=== PATIENT | female | born 1940 | race Caucasian/White ===

== ENCOUNTER 2024-10-13 11:18 | Inpatient (IN) | payer OTHER ==
--- OUTSIDE RECORDS SUMMARY | 2024-10-13 11:27 | XMS REPORT | Continuity of Care Document ---
Author Name Unknown Address [address] [facility] [address]. [address] [place] [address] [facility] [place] Address [address] [facility]. [address] [place] [address] Care Team Providers Care Sap Trainer Name Role Phone Chele Bass Attending Clinician Unavailable Nooruddin_K Attending Clinician Unavailable Keyla Galvan Attending Clinician Unavailable Chele Bass Admitting Clinician Unavailable Noordonis_K Admitting Clinician Unavailable Haja Carnes Admitting Clinician Unavailable Payers Payer Name Policy Type Policy Number Effective Date Expirati on Date Source MEDIC[place]: [employer] [id number] 2007 00:00:00 WEATOGUE FERNANDA WHITE (MEDICARE SUPPLEMENT) [id number] 2007 00:00:00 Problems Condition Name Condition Details Condition Category Status Onset Date Resolution Date Last Treatment Date Treating Clinician Comments Source Chronic kidney disease stage 3B Chronic Kidney Disease Stage 3B Problem Active 01-31 00:00: 00 [facility] - unspeci fied Diastolic heart failure Diastolic Heart Failure Problem Active 01-31 00:00: 00 [facility] - unspeci fied Chronic kidney disease stage 3A Chronic Kidney Disease Stage 3a Problem Active 08-03 00:00: 00 [facility] - unspeci fied Benign essential hypertensi on Benign Essential Hypertensi on Problem Active 08-03 00:00: 00 [facility] - unspeci fied Paroxysmal atrial fibrillati on Paroxysmal Atrial Fibrillati on Problem Active 08-03 00:00: 00 [facility] - unspeci fied 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 ve Joint Disease Involving Multiple Joints Problem Active 08-03 00:00: 00 [facility] - unspeci fied Osteoarthr itis Osteoarthr itis Problem Active 07-28 00:00: 00 [facility] - unspeci fied Proteinuri a Proteinuri a Problem Active 07-28 00:00: 00 [facility] - unspeci fied Clinical finding Clinical Finding Problem Active 07-28 00:00: 00 [facility] - unspeci fied Allergies, Adverse Reactions, Alerts Allergy Name Allergy Type Status Severity Reaction(s) Onset Date Inactive Date Treating Clinician Comments Source aspirin DA Active MO UNKNOWN 07-10 00:00: 00 [facility] bacitrac in DA Active MO UNKNOWN 07-10 00:00: 00 [facility] Aspirin Allergy to substanc e Active Nausea 08-03 00:00: 00 [facility] - unspeci fied Aluminum Aspirin Allergy to substanc e Active Nausea 08-03 00:00: 00 [facility] - unspeci fied SULFAMET HOXAZOLE -TRIMETH OPRIM Allergy to substanc e Active Other 08-03 00:00: 00 [facility] - unspeci fied iodine DA Active U 11-07 00:00: 00 [facility] penicill in G DA Active IN 07-09 00:00: 00 [facility] iodine DA Active IN 07-09 00:00: 00 [facility] aspirin DA Active IN 02-05 00:00: 00 [facility] Sulfa (Sulfona mide Antibiot ics) DA Active IN 02-05 00:00: 00 [facility] codeine DA Active IN 02-05 00:00: 00 [facility] Sulfa (Sulfona mide Antibiot ics) DA Active MO 08-08 00:00: 00 [facility] codeine DA Active MO 08-08 00:00: 00 [facility] trimetho prim DA Active SV 08-08 00:00: 00 [facility] SULFA (SULFONA MIDE ANTIBIOT ICS) Allergy to substanc e Active [facility] - unspeci fied Sulfacet amide Allergy to substanc e Active [facility] - unspeci fied Social History Smoking Status Start Date Stop Date Source Former Smoker [facility] - un specified Medications Ordered Medication Name Filled Medication Name Start Date Stop Date Current Medication? Ordering Clinician Indication Dosage Frequency Signature (SIG) Comments Components Source allopurinol 300 mg tablet TAKE 1 TABLET BY MOUTH ONCE DAILY allopurinol 300 mg tablet TAKE 1 TABLET BY MOUTH ONCE DAILY No allopurino l 300 mg tablet TAKE 1 TABLET BY MOUTH ONCE DAILY [facility] - unspeci fied amlodipine 2.5 mg tablet TAKE 1 TABLET BY MOUTH ONCE DAILY amlodipine 2.5 mg tablet TAKE 1 TABLET BY MOUTH ONCE DAILY No amlodipine 2.5 mg tablet TAKE 1 TABLET BY MOUTH ONCE DAILY [facility] - unspeci fied atorvastati n 20 mg tablet TAKE 1 TABLET BY MOUTH ONCE DAILY atorvastati n 20 mg tablet TAKE 1 TABLET BY MOUTH ONCE DAILY No atorvastat in 20 mg tablet TAKE 1 TABLET BY MOUTH ONCE DAILY [facility] - unspeci fied Eliquis 5 mg tablet TAKE 1 TABLET BY MOUTH TWICE DAILY Eliquis 5 mg tablet TAKE 1 TABLET BY MOUTH TWICE DAILY No Eliquis 5 mg tablet TAKE 1 TABLET BY MOUTH TWICE DAILY [facility] - unspeci fied Farxiga 10 mg tablet TAKE 1 TABLET BY MOUTH ONCE DAILY Farxiga 10 mg tablet TAKE 1 TABLET BY MOUTH ONCE DAILY No Farxiga 10 mg tablet TAKE 1 TABLET BY MOUTH ONCE DAILY [facility] - unspeci fied furosemide 40 mg tablet 1 tab po QOD furosemide 40 mg tablet 1 tab po QOD No furosemide 40 mg tablet 1 tab po QOD [facility] - unspeci fied hydrocodone 10 mg-acetamin ophen 325 mg tablet TAKE 1 TABLET BY MOUTH EVERY 6 HOURS NEEDED , MUST LAST 30 DAYS. hydrocodone 10 mg-acetamin ophen 325 mg tablet TAKE 1 TABLET BY MOUTH EVERY 6 HOURS NEEDED , MUST LAST 30 DAYS. No hydrocodon e 10 mg-acetami nophen 325 mg tablet TAKE 1 TABLET BY MOUTH EVERY 6 HOURS NEEDED , MUST LAST 30 DAYS. [facility] ic - unspeci fied nebivolol 20 mg tablet TAKE 1 TABLET BY MOUTH ONCE DAILY nebivolol 20 mg tablet TAKE 1 TABLET BY MOUTH ONCE DAILY No nebivolol 20 mg tablet TAKE 1 TABLET BY MOUTH ONCE DAILY [facility] ic - unspeci fied potassium chloride ER 20 mEq tablet,exte nded release(par t/cryst) TAKE 1 TABLET daily potassium chloride ER 20 mEq tablet,exte nded release(par t/cryst) TAKE 1 TABLET daily No potassium chloride ER 20 mEq tablet,ext ended release(pa rt/cryst) TAKE 1 TABLET daily [facility] - unspeci fied prednisone 1 mg tablet TAKE 1 TABLET BY MOUTH EVERY OTHER DAY ALTERNATING WITH 2 EVERY OTHER DAY prednisone 1 mg tablet TAKE 1 TABLET BY MOUTH EVERY OTHER DAY ALTERNATING WITH 2 EVERY OTHER DAY No prednisone 1 mg tablet TAKE 1 TABLET BY MOUTH EVERY OTHER DAY ALTERNATIN G WITH 2 EVERY OTHER DAY [facility] - unspeci fied prednisone 5 mg tablet TAKE 1 TABLET BY MOUTH ONCE DAILY NEEDED prednisone 5 mg tablet TAKE 1 TABLET BY MOUTH ONCE DAILY NEEDED No prednisone 5 mg tablet TAKE 1 TABLET BY MOUTH ONCE DAILY NEEDED [facility] ic - unspeci fied valsartan 320 mg tablet TAKE 1 TABLET BY MOUTH ONCE DAILY valsartan 320 mg tablet TAKE 1 TABLET BY MOUTH ONCE DAILY No valsartan 320 mg tablet TAKE 1 TABLET BY MOUTH ONCE DAILY [facility] - unspeci fied levothyroxi ne 112 mcg tablet TAKE 1 TABLET BY MOUTH ONCE DAILY ON AN EMPTY STOMACH levothyroxi ne 112 mcg tablet TAKE 1 TABLET BY MOUTH ONCE DAILY ON AN EMPTY STOMACH No levothyrox ine 112 mcg tablet TAKE 1 TABLET BY MOUTH ONCE DAILY ON AN EMPTY STOMACH [facility] ic - unspeci fied methocarbam ol 500 mg tablet TAKE 1/2 (ONE-HALF) TABLET BY MOUTH THREE TIMES DAILY FOR 10 DAYS methocarbam ol 500 mg tablet TAKE 1/2 (ONE-HALF) TABLET BY MOUTH THREE TIMES DAILY FOR 10 DAYS No methocarba mol 500 mg tablet TAKE 1/2 (ONE-HALF) TABLET BY MOUTH THREE TIMES DAILY FOR 10 DAYS [facility]am ic - unspeci fied potassium chloride ER 20 mEq tablet,exte nded release TAKE 1 TABLET BY MOUTH TWICE DAILY potassium chloride ER 20 mEq tablet,exte nded release TAKE 1 TABLET BY MOUTH TWICE DAILY No potassium chloride ER 20 mEq tablet,ext ended release TAKE 1 TABLET BY MOUTH TWICE DAILY [facility] ic - unspeci fied Vital Signs Vital Name Observation Time Observation Value Comments S ource BMI (Body Mass Index) 2024-08-28 00:00:00 41 kg/m2 [facility] - unspecified Body Weight 2024-08-28 00:00:00 210 [lb_av] Dahl oramic - unspecified BP Diastolic 2024-08-28 00:00:00 72 mm[Hg] Dahl oramic - unspecified BP Systolic 2024-08-28 00:00:00 140 mm[Hg] Pano ramic - unspecified Height 2024-08-28 00:00:00 60 [in_i] Panor amic - unspecified BP Systolic 2024-02-01 00:00:00 116 mm[Hg] [facility] ramic - unspecified BMI (Body Mass Index) 2024-02-01 00:00:00 40.2 kg/m2 [facility] - unspecified Height 2024-02-01 00:00:00 60 [in_i] Panor amic - unspecified BP Diastolic 2024-02-01 00:00:00 54 mm[Hg] Dahl oramic - unspecified Body Weight 2024-02-01 00:00:00 206 [lb_av] Dahl oramic - unspecified Procedures Procedure Date / Time Performed Performing Clinician Source Cataract Panoramic - unspecified Cardiac Pacemaker Procedure Pan[facility] - unspecified Hysterectomy Panoramic - unspecified Cholecystectomy/Gall Bladder Pan[facility] - unspecified Appendectomy Panoramic - unspecified Encounters Start Date/Time End Date/Time Encounter Type Admission Type Attending Clinicians Care Facility Care Department Encounter ID Source 2018-10-09 09:43:00 Inpatient Chele Calvert [facility] [id number] [facility] 2024-08-28 00:00:00 2024-08-28 00:00:00 Toñito Mcnair MD: [address], [place] [address] , Ph. [facility] [address] [phone] [id number] [facility] - unspeci fied 2024-02-01 00:00:00 2024-02-01 00:00:00 Toñito Mcnair MD: [address], [place] [address] , Ph. [facility] [place] [address] [id number] [id number] [facility] ic - unspeci [facility] 2023-08-03 00:00:00 2023-08-03 00:00:00 Outpatient Nooruddin_K [facility] [id number] [facility] 2023-07-10 13:07:00 2023-07-10 14:09:00 Emergency EM Keyla Galvan [facility] [id number] [facility] 2023-05-04 00:00:00 2023-05-04 00:00:00 Outpatient Nooruddin_K [facility]KS[facility] PANKS[facility] [id number] [facility] 2018-10-31 15:21:00 2018-11-02 15:23:00 Inpatient Chele Calvert [facility] [id number] [facility] 2018-10-09 09:43:00 2018-10-21 12:06:00 Inpatient Chele Calvert [facility] [id number] [facility] Results Test Description Test Time Test Comments Results Result Co mments Source Panoramic - unspecifiedRenal function 2000 panel - Serum or [id number] 00:00:00* Test Item Value Reference Range Interpretation Comme nts Glucose [Mass/volume] in Ser um or Plasma (test code = 2345-7) 87 mg/dL 70-99 Urea nitrogen [Mass/volume] in Serum or Plasma (test code = 3094-0) 20 mg/dL 8-27 Creatinine [Mass/volume] in Serum or Plasma (test code = 2160-0) 0.89 mg/dL 0.57-1.00 Glomerular filtration rate/1.73 sq M.predicted [Volume Rate/Area] in Serum, Plasma or Blood by Creatinine-based formula (CKD-EPI 2020) (test code = 53087-5) 65 mL/min/1.73 >59 Urea nitrogen/Creatinine [Ma ss Ratio] in Serum or Plasma (test code = 3097-3) 22 12-28 Sodium [Moles/volume] in Ser um or Plasma (test code = 2951-2) 143 mmol/L 134-144 Potassium [Moles/volume] in Serum or Plasma (test code = 2823-3) 4.0 mmol/L 3.5-5.2 Chloride [Moles/volume] in Serum or Plasma (test code = 2075-0) 101 mmol/L 96-106 Carbon dioxide, total [Moles/volume] in Serum or Plasma (test code = 8-9) 30 mmol/L 20-29 H Calcium [Mass/volume] in Ser um or Plasma (test code = 17105-9) 9.6 mg/dL 8.7-10.3 Phosphate [Mass/volume] in Serum or Plasma (test code = 2777-1) 3.3 mg/dL 3.0-4.3 Albumin [Mass/volume] in Ser um or Plasma (test code = 1751-7) 3.7 g/dL 3.7-4.7 Panoramic - unspecifiedProtein and creatinine panel - [id number] 00:00:00* Test Item Value Reference Range Interpretation Comme nts Creatinine [Mass/volume] in Urine (test code = 2161-8) 52.8 mg/dL not estab. Protein [Mass/volume] in Uri ne (test code = 2888-6) 8.2 mg/dL not estab. Protein/Creatinine [Mass Ratio] in Urine (test code = 2890-2) 155 mg/g creat 0-200 Panoramic - unspecifiedPROCALCITONIN (PCT)2019-04-04 14:48:00* Test Item Value Reference Range Interpretation Comme nts PROCALCITONIN (PCT) (test co de = PROCAL) < 0.05 ng/mL 0.00-0.50 N [id number] 14:44:00* Test Item Value Reference Range Interpretation Comme nts TROPONIN-I (test code = TROPI) 0.07 NG/ML 0.00-0.06 H Results above 0.06 are consistent with NACB IFCC Committee recommendations to use the 99th percentile of a normal population as a reference decision-limit. - The use of serial sampling and testing protocol is a recommended practice.- An elevated troponin level alone is often not sufficient for diagnosis of myocardial infarction. Results of this assay method may be falsely depressed orelevated if patient is taking high doses of Biotin. - XR CHEST 1 [id number] 10:12:00Patient Name: GABBIE CASTANEDA Unit No: [id number] EXAMS: CPT CODE: [id number] XR CHEST 1 V [id number] Reason: f/u cxr History: f/u cxr. Technique: 1 view of chest. Comparison: CT angiography chest study dated 11/07/2018, one view chest study dated 04/03/2019. Findings: HEART AND MEDIASTINUM: Within normal limits. LUNGS: There is a left lower lung density unchanged. Impression: 1. Left lower lung density unchanged. Atelectasis versus pneumonia are considerations. at 1012 Reported and signed by: Bryson Swenson MD CC: Paul Baeza MD; Chele Bass; Micaela Aggarwal DO Technologist: Ginger Arguello RT Trscrpt Dt/ (1012)[email or web address] Orig Print D/T: S: 04/04/2019 (1015) [facility] NAME: GABBIE CASTANEDA [address] PHYS: Micaela Dailey [place] [address] [place] [address] : 1940 AGE: 78 SEX: F LOC: SONAM 1 PHONE #: [phone] EXAM DATE: 04/04/2019 STATUS: ADM IN FAX #: RAD NO: DC Dt: PAGE 1 Signed ReportBASIC METABOLIC [id number] 08:53:00* Test Item Value Reference Range Interpretation Comme nts SODIUM (test code = NA) 143 MMOL/L 133-145 N POTASSIUM (test code = K) 3.2 MMOL/L 3.6-5.2 L CHLORIDE (test code = CL) 106 MMOL/L 100-108 N CARBON DIOXIDE (test code = CO2) 28 MMOL/L 22-32 N GLUCOSE (test code = GLU) 84 MG/DL 65-99 N Results of this assay method may be falsely depressed orelevated if patient is taking sulfasalazine. BLOOD UREA NITROGEN (test code = BUN) 26 MG/DL 6-20 H GLOMERULAR FILTRATION RATE (test code = GFR) 61 39-90 N Reporting units: mL/min/1.73m\\S\\2 (Modified MDRD Formula) CREATININE (test code = CREAT) 0.90 MG/DL 0.60-1.00 N CALCIUM (test code = CA) 9.1 MG/DL 8.7-10.5 N : add it to AM [id number] 08:53:00* Test Item Value Reference Range Interpretation Comme nts MAGNESIUM (test code = MAG) 2.2 MG/DL 1.8-2.4 N : add it to AM [id number] 08:53:00* Test Item Value Reference Range Interpretation Comme nts TROPONIN-I (test code = TROPI) 0.06 NG/ML 0.00-0.06 N - The use of ser ial sampling and testing protocol is a recommended practice.- An elevated troponin level alone is often not sufficient for diagnosis of myocardial infarction.Results of this assay method may be falsely depressed orelevated if patient is taking high doses of Biotin. : add it to AM labBASIC METABOLIC [id number] 08:35:00* Test Item Value Reference Range Interpretation Comme nts SODIUM (test code = NA) 143 MMOL/L 133-145 N POTASSIUM (test code = K) 3.2 MMOL/L 3.6-5.2 L CHLORIDE (test code = CL) 106 MMOL/L 100-108 N CARBON DIOXIDE (test code = CO2) 28 MMOL/L 22-32 N GLUCOSE (test code = GLU) 84 MG/DL 65-99 N Results of this assay method may be falsely depressed orelevated if patient is taking sulfasalazine. BLOOD UREA NITROGEN (test code = BUN) 26 MG/DL 6-20 H GLOMERULAR FILTRATION RATE (test code = GFR) 61 39-90 N Reporting units: mL/min/1.73m\\S\\2 (Modified MDRD Formula) CREATININE (test code = CREAT) 0.90 MG/DL 0.60-1.00 N CALCIUM (test code = CA) 9.1 MG/DL 8.7-10.5 N : add it to AM [id number] 08:35:00* Test Item Value Reference Range Interpretation Comme nts MAGNESIUM (test code = MAG) 2.2 MG/DL 1.8-2.4 N : add it to AM [id number] 08:35:00* Test Item Value Reference Range Interpretation Comme nts TROPONIN-I (test code = TROPI) NG/ML 0.00-0.06 : add it to AM labCBC W/AUTO [id number] 08:22:00* Test Item Value Reference Range Interpretation Comme nts WHITE BLOOD CELL (test code = WBC) 5.13 x10 3/uL 4.80-10.80 N RED BLOOD CELL (test code = RBC) 3.76 x10 6/uL 4.2-5.4 L HEMOGLOBIN (test code = HGB) 10.6 G/DL 12.0-16.0 L HEMATOCRIT (test code = HCT) 34.4 % 37-47 L MEAN CELL VOLUME (test code = MCV) 91.5 FL 81-99 N MEAN CELL HGB (test code = MCH) 28.2 PG 27-31 N MEAN CELL HGB CONCENTRATION (test code = MCHC) 30.8 G/DL 33-37 L RED CELL DISTRIBUTION WIDTH (test code = RDW) 16.4 % 11.5-14.5 H PLATELET COUNT (test code = PLT) 235 x10 3/uL 150-450 N MEAN PLATELET VOLUME (test c ode = MPV) 10.8 FL 7.4-10.4 H NEUTROPHIL % (test code = NT%) 59.1 % 42-86 N IMMATURE GRANULOCYTE % (test code = IG%) 1.0 % 0.0-2.0 N LYMPHOCYTE % (test code = LY%) 25.0 % 24-44 N MONOCYTE % (test code = MO%) 12.5 % 0.0-4.0 H EOSINOPHIL % (test code = EO%) 1.8 % 0.0-2.7 N BASOPHIL % (test code = BA%) 0.6 % 0.0-0.5 H NUCLEATED RBC % (test code = NRBC%) 0.0 % 0.0-0.0 N NEUTROPHIL # (test code = NT#) 3.04 x10 3/uL 1.8-7.7 N IMMATURE GRANULOCYTE # (test code = IG#) 0.05 x10 3/uL 0.00-0.03 H LYMPHOCYTE # (test code = LY#) 1.28 x10 3/uL 1.0-4.8 N MONOCYTE # (test code = MO#) 0.64 x10 3/uL 0.0-0.8 N EOSINOPHIL # (test code = EO#) 0.09 x10 3/uL 0.0-0.5 N BASOPHIL # (test code = BA#) 0.03 x10 3/uL 0.0-0.2 N NUCLEATED RBC # (test code = NRBC#) 0.0 X10 3/uL 0.0-0.2 N TROPONIN I [id number] 01:30:00* Test Item Value Reference Range Interpretation Comme nts TROPONIN I RAPID (test code = TROPIRAP) 0.08 NG/ML 0.00-0.08 N Performed by cer tified control operator flow coat at [facility] - The use of serial sampling and testing protocol is a recommended practice.- An elevated troponin level alone is often not sufficient for diagnosis of myocardial infarction. COMPREHENSIVE METABOLIC [id number] 23:35:00* Test Item Value Reference Range Interpretation Comme nts SODIUM (test code = NA) 141 MMOL/L 133-145 N POTASSIUM (test code = K) 3.4 MMOL/L 3.6-5.2 L CHLORIDE (test code = CL) 103 MMOL/L 100-108 N CARBON DIOXIDE (test code = CO2) 28 MMOL/L 22-32 N GLUCOSE (test code = GLU) 100 MG/DL 65-99 H Results of this assay method may be falsely depressed orelevated if patient is taking sulfasalazine. BLOOD UREA NITROGEN (test code = BUN) 28 MG/DL 6-20 H GLOMERULAR FILTRATION RATE (test code = GFR) 46 39-90 N Reporting units: mL/min/1.73m\\S\\2 (Modified MDRD Formula) CREATININE (test code = CREAT) 1.15 MG/DL 0.60-1.00 H TOTAL PROTEIN (test code = PROT) 6.1 G/DL 6.4-8.2 L ALBUMIN (test code = ALB) 3.0 G/DL 3.4-5.0 L GLOBULIN (test code = GLOB) 3.1 G/DL 1.5-3.8 N ALBUMIN/GLOBULIN RATIO (test code = A/G) 1.0 1.1-2.2 L CALCIUM (test code = CA) 9.1 MG/DL 8.7-10.5 N BILIRUBIN TOTAL (test code = BILT) 0.3 MG/DL 0.0-1.0 N SGOT/AST (test code = AST) 18 Units/L 15-37 N Results of this assay method may be falsely depressed orelevated if patient is taking sulfasalazine. SGPT/ALT (test code = ALT) 19 Units/L 30-65 L Results of this assay method may be falsely depressed orelevated if patient is taking sulfasalazine. ALKALINE PHOSPHATASE TOTAL (test code = ALKP) 106 Units/L 50-136 N [id number] 23:35:00* Test Item Value Reference Range Interpretation Comme nts MAGNESIUM (test code = MAG) 2.1 MG/DL 1.8-2.4 N PROTHROMBIN [id number] 23:12:00* Test Item Value Reference Range Interpretation Comme nts PROTHROMBIN TIME PATIENT (test code = PTP) 11.5 SECONDS 9.6-12.3 N INTERNATIONAL NORMAL RATIO (test code = INR) 1.02 Recommended INR range (warfarin therapy): 2.0 - 3.0INR (International Normalized Ratio) should beused when interpreting oral anticoaglulant therapy. For atrial fibrillation and treatment orprevention of deep vein thrombosis. Patients with Palmaz-Donte stent *: 2.0 - 3.0 Patients with mechanical heart valve *: 2.5 - 3.5 Patients with flex-stent *: 3.0 - 4.0(*) = vehicle dynamics engineer's suggested range Is patient on anticoagulants? PradaxaTHROMBOPLASTIN TIME [id number] 23:12:00* Test Item Value Reference Range Interpretation Comme nts THROMBOPLASTIN TIME PARTIAL (test code = PTT) 31.6 SECONDS 22.5-35.3 N *Therapeutic lev el for heparin: 1.5 - 2.5 times the average patient value of 30.0 seconds. The aPTT tet should not be used to evaluate low moleculat weight heparin anticoagulant therapy. Is patient on anticoagulants? Pradaxa- XR CHEST 1 [id number] 23:08:00Patient Name: GABBIE CASTANEDA Unit No: [id number] EXAMS: CPT CODE: [id number] XR CHEST 1 V 76763 Reason: CHEST PAIN PROCEDURE INFORMATION: Exam: XR Chest, 1 View Exam date and time: 04/03/2019 10:24 PM Clinical history: 78 years old, female; Chest pain TECHNIQUE: Imaging protocol: XR of the chest Views: 1 view. COMPARISON: DX XR CHEST 2V 10/31/2018 3:49 PM FINDINGS: Lungs: Mild apical hyperlucency suspicious for possible COPD Pulmonary vasculature grossly normal. Chronic blunting of the left lateral costophrenic angle suggesting chronic pleural scarring and atelectasis. Mild adjacent left basilar scarring or atelectasis in the peripheral left lower lobe. No infiltrates. Pleural space: Nopleural effusion. No pneumothorax. Heart/Mediastinum: Heart size normal. No tracheal/mediastinal shift. Vasculature: Mild aortic calcification and ectasia. Bones/joints: No acute osseous abnormalities are identified. IMPRESSION: 1. No acute thoracic process. No significant change from prior exam. 2. Chronic scarring or atelectasis in the left lateral costophrenic angle. 3. Suspect underlying COPD. at 2308 Reported and signedby: Nadir BOOTH CC: Nilson Kerr MD; Chele Bass Technologist: Ashley SCOTT Trscrpt Dt/ (2307)[email or web address].VR Orig Print D/T: S: 04/03/2019 (943) [facility] NAME: GABBIE CASTANEDA [address] PH[address]: Nil[place] [address] : 1940 AGE: 78 SEX: F LOC: MARANDA PHONE #: [phone] EXAM DATE: 04/03/2019 STATUS: REG ER FAX #: RAD NO: DC Dt: PAGE 1 Signed ReportTRSAFIA [id number] 23:06:00* Test Item Value Reference Range Interpretation Comme nts TROPONIN I RAPID (test code = TROPIRAP) 0.07 NG/ML 0.00-0.08 N Performed by cer tified control operator flow coat at [facility] - The use of serial sampling and testing protocol is a recommended practice.- An elevated troponin level alone is often not sufficient for diagnosis of myocardial infarction. CBC W/AUTO [id number] 23:03:00* Test Item Value Reference Range Interpretation Comme nts WHITE BLOOD CELL (test code = WBC) 6.10 x10 3/uL 4.80-10.80 N RED BLOOD CELL (test code = RBC) 4.08 x10 6/uL 4.2-5.4 L HEMOGLOBIN (test code = HGB) 11.6 G/DL 12.0-16.0 L HEMATOCRIT (test code = HCT) 37.6 % 37-47 N MEAN CELL VOLUME (test code = MCV) 92.2 FL 81-99 N MEAN CELL HGB (test code = MCH) 28.4 PG 27-31 N MEAN CELL HGB CONCENTRATION (test code = MCHC) 30.9 G/DL 33-37 L RED CELL DISTRIBUTION WIDTH (test code = RDW) 16.3 % 11.5-14.5 H PLATELET COUNT (test code = PLT) 248 x10 3/uL 150-450 N MEAN PLATELET VOLUME (test c ode = MPV) 10.8 FL 7.4-10.4 H NEUTROPHIL % (test code = NT%) 70.9 % 42-86 N IMMATURE GRANULOCYTE % (test code = IG%) 1.3 % 0.0-2.0 N LYMPHOCYTE % (test code = LY%) 16.6 % 24-44 L MONOCYTE % (test code = MO%) 9.7 % 0.0-4.0 H EOSINOPHIL % (test code = EO%) 0.8 % 0.0-2.7 N BASOPHIL % (test code = BA%) 0.7 % 0.0-0.5 H NUCLEATED RBC % (test code = NRBC%) 0.0 % 0.0-0.0 N NEUTROPHIL # (test code = NT#) 4.33 x10 3/uL 1.8-7.7 N IMMATURE GRANULOCYTE # (test code = IG#) 0.08 x10 3/uL 0.00-0.03 H LYMPHOCYTE # (test code = LY#) 1.01 x10 3/uL 1.0-4.8 N MONOCYTE # (test code = MO#) 0.59 x10 3/uL 0.0-0.8 N EOSINOPHIL # (test code = EO#) 0.05 x10 3/uL 0.0-0.5 N BASOPHIL # (test code = BA#) 0.04 x10 3/uL 0.0-0.2 N NUCLEATED RBC # (test code = NRBC#) 0.0 X10 3/uL 0.0-0.2 N BASIC METABOLIC [id number] 23:24:00* Test Item Value Reference Range Interpretation Comme nts SODIUM (test code = NA) 134 MMOL/L 133-145 POTASSIUM (test code = K) 4.3 MMOL/L 3.6-5.2 N CHLORIDE (test code = CL) 95 MMOL/L 100-108 L CARBON DIOXIDE (test code = CO2) 25 MMOL/L 22-32 N GLUCOSE (test code = GLU) 161 MG/DL 65-99 H Results of this assay method may be falsely depressed orelevated if patient is taking sulfasalazine. BLOOD UREA NITROGEN (test code = BUN) 42 MG/DL 6-20 H GLOMERULAR FILTRATION RATE (test code = GFR) 32 39-90 L Reporting units: mL/min/1.73m\\S\\2 (Modified MDRD Formula) CREATININE (test code = CREAT) 1.58 MG/DL 0.60-1.00 H CALCIUM (test code = CA) 10.0 MG/DL 8.7-10.5 N BASIC METABOLIC [id number] 23:13:00* Test Item Value Reference Range Interpretation Comme nts SODIUM (test code = NA) MMOL/L 133-145 L POTASSIUM (test code = K) MMOL/L 3.6-5.2 N CHLORIDE (test code = CL) 95 MMOL/L 100-108 L CARBON DIOXIDE (test code = CO2) 25 MMOL/L 22-32 N GLUCOSE (test code = GLU) 161 MG/DL 65-99 H Results of this assay method may be falsely depressed orelevated if patient is taking sulfasalazine. BLOOD UREA NITROGEN (test code = BUN) 42 MG/DL 6-20 H GLOMERULAR FILTRATION RATE (test code = GFR) 32 39-90 L Reporting units: mL/min/1.73m\\S\\2 (Modified MDRD Formula) CREATININE (test code = CREAT) 1.58 MG/DL 0.60-1.00 H CALCIUM (test code = CA) 10.0 MG/DL 8.7-10.5 N CBC W/AUTO [id number] 22:55:00* Test Item Value Reference Range Interpretation Comme nts WHITE BLOOD CELL (test code = WBC) 11.88 x10 3/uL 4.80-10.80 H RED BLOOD CELL (test code = RBC) 3.90 x10 6/uL 4.2-5.4 L HEMOGLOBIN (test code = HGB) 11.0 G/DL 12.0-16.0 L HEMATOCRIT (test code = HCT) 33.9 % 37-47 L MEAN CELL VOLUME (test code = MCV) 86.9 FL 81-99 N MEAN CELL HGB (test code = MCH) 28.2 PG 27-31 N MEAN CELL HGB CONCENTRATION (test code = MCHC) 32.4 G/DL 33-37 L RED CELL DISTRIBUTION WIDTH (test code = RDW) 15.2 % 11.5-14.5 H PLATELET COUNT (test code = PLT) 291 x10 3/uL 150-450 N MEAN PLATELET VOLUME (test code = MPV) 10.8 FL 7.4-10.4 H NEUTROPHIL % (test code = NT%) 86.1 % 42-86 H IMMATURE GRANULOCYTE % (test code = IG%) 1.9 % 0.0-2.0 N LYMPHOCYTE % (test code = LY%) 6.1 % 24-44 L MONOCYTE % (test code = MO%) 5.5 % 0.0-4.0 H EOSINOPHIL % (test code = EO%) 0.1 % 0.0-2.7 N BASOPHIL % (test code = BA%) 0.3 % 0.0-0.5 N NUCLEATED RBC % (test code = NRBC%) 0.0 % 0.0-0.0 N NEUTROPHIL # (test code = NT#) 10.24 x10 3/uL 1.8-7.7 H IMMATURE GRANULOCYTE # (test code = IG#) 0.22 x10 3/uL 0.00-0.03 H LYMPHOCYTE # (test code = LY#) 0.73 x10 3/uL 1.0-4.8 L MONOCYTE # (test code = MO#) 0.65 x10 3/uL 0.0-0.8 N EOSINOPHIL # (test code = EO#) 0.01 x10 3/uL 0.0-0.5 N BASOPHIL # (test code = BA#) 0.03 x10 3/uL 0.0-0.2 N NUCLEATED RBC # (test code = NRBC#) 0.0 X10 3/uL 0.0-0.2 N - CTA [id number] 19:05:00Patient Name: GABBIE CASTANEDA Unit No: [id number] EXAMS: CPT CODE: [id number] CTA CHEST 78903 Reason: PULMONARY EMBOLISM PROTOCOL:RO6. EXAM: - CTA CHEST REASON FOR EXAM: PULMONARY EMBOLISM PROTOCOL:R O6.02 SOB COMPARISON: CT angiogram chest exam 07/12/2017. Techniques: 2.5 mm axial images of CT angiogram chest study performed after administration 80 cc Isovue-370 IV contrast. Coronal, sagittal, coronal MIP and 3-D CT angiogram chest reformation images obtained. FINDINGS: Pulmonary vasculature is within normal limits without pulmonary embolus. Heart size is normal. There is no pericardial effusion. Calcified plaques of coronary arteries identified. Calcified plaques of aorta seen without aneurysm. Main pulmonary arteries are normal. Subsegmental atelectasis of lung bases identified, worse on the left with also involvement of middle lobe and lingular division of left upper lobe. Trachea and main bronchi are normal. Thyroid gland and esophagus are normal. No enlarged lymph nodes seen. Vascular calcifications of upper abdominal aorta and branches identified. Upper abdominal visceral organs are otherwise normal. Visualized breast tissues normal. Degenerative changes of spine with chronic T11 mild to moderate compression fracture seen. Coronal, sagittal, MIP and 3-D CT angiogram chestreformation images confirm above findings. IMPRESSION: Interval resolution of pulmonary embolus seen on previous study without pulmonary embolus seen on current study. Subsegmental atelectasis identified bilaterally with significant improvement since previous study. Additional chronic findings of ch est and upper abdomen as noted. at 1905 Reported and signed by: Tanya Azevedo MD CC: Chele Bass Technologist: Ramon GARCIA Trscrpt Dt/ (1904)t.SDR.[id number] Orig Print D/T: S: 11/07/2018 (1907) CTDI: DLP: [facility] NAME: GABBIE CASTANEDA [address] PHYS: [email or web address] - Chele Bass MD [place] [address] : 1940 AGE: 78 SEX: F LOC: CourtneyYCT PHONE #: [phone] EXAM DATE: 11/07/2018 STATUS: REG CLI FAX #: RAD NO: DC Dt: PAGE 1 Signed Report- CTA [id number] 19:05:00Patient Name: GABBIE CASTANEDA Unit No: [id number] EXAMS: CPT CODE: [id number] CTA CHEST 51045 Reason: PULMONARY EMBOLISM PROTOCOL:RO6. EXAM: - CTA CHEST REASON FOR EXAM: PULMONARY EMBOLISM PROTOCOL:RO6.02 SOB COMPARISON: CT angiogram chest exam 07/12/2017. Techniques: 2.5 mm axial images of CT angiogram chest study performed after administration 80 cc Isovue-370 IV contrast. Coronal, sagittal, coronal MIP and 3-D CT angiogram chest reformation images obtained. FINDINGS: Pulmonary vasculature is within normal limits without pulmonary embolus. Heart size is normal. There is no pericardial effusion. Calcified plaques of coronary arteries identified. Calcified plaques of aorta seen without aneurysm. Main pulmonary arteries are normal. Subsegmental atelectasis of lung bases identified, worse on the left with also involvement of middle lobe and lingular division of left upper lobe. Trachea and main bronchi are normal. Thyroid gland and esophagus are normal. No enlarged lymph nodes seen. Vascular calcifications of upper abdominal aorta and branches identified. Upper abdominal visceral organs are otherwise normal. Visualized breast tissues normal. Degenerative changes of spine with chronic T11 mild to moderate compression fracture seen. Coronal, sagittal, MIP and 3-D CT angiogram chest reformation images confirm above findings. IMPRESSION: Interval resolution of pulmonary embolus seenon previous study without pulmonary embolus seen on current study. Subsegmental atelectasis identified bilaterally with significant improvement since previous study. Additional chronic findings of robbin [address] and upper abdomen as noted. at 1905 Reported and signed by: Tanya Azevedo MD CC: Chele Bass Technologist: Ramon GARCIA Trscrpt Dt/ (1904)t.SDR.NH41 Orig Print D/T: S: 11/07/2018 (1907) CTDI: DLP: [facility] NAME: GABBIE CASTANEDA [address] [facility] PHYS: CARTER - [place] [address] :1940 AGE: 78 SEX: F LOC: CourtneyYCInga PHONE #: [phone] EXAM DATE: 11/07/2018 STATUS: DEP CLI FAX #: RAD NO: DC Dt: PAGE 1 Signed [id number] 11:45:00* Test Item Value Reference Range Interpretation Comme nts GLUBED (test code = GLUBED) 97 MG/DL 65-99 N Performed by cer tified control operator flow coat at [facility] [id number] 06:23:00* Test Item Value Reference Range Interpretation Comme nts GLUBED (test code = GLUBED) 92 MG/DL 65-99 N Performed by cer tified control operator flow coat at [facility] COMPREHENSIVE METABOLIC [id number] 03:35:00* Test Item Value Reference Range Interpretation Comme nts SODIUM (test code = NA) 142 MMOL/L 133-145 POTASSIUM (test code = K) 4.5 MMOL/L 3.6-5.2 N CHLORIDE (test code = CL) 108 MMOL/L 100-108 N CARBON DIOXIDE (test code = CO2) 28 MMOL/L 22-32 N GLUCOSE (test code = GLU) 97 MG/DL 65-99 N Results of this assay method may be falsely depressed orelevated if patient is taking sulfasalazine. BLOOD UREA NITROGEN (test code = BUN) 43 MG/DL 6-20 H GLOMERULAR FILTRATION RATE (test code = GFR) 48 39-90 N Reporting units: mL/min/1.73m\\S\\2 (Modified MDRD Formula) CREATININE (test code = CREAT) 1.10 MG/DL 0.60-1.00 H TOTAL PROTEIN (test code = PROT) 5.6 G/DL 6.4-8.2 L ALBUMIN (test code = ALB) 2.3 G/DL 3.4-5.0 L GLOBULIN (test code = GLOB) 3.3 G/DL 1.5-3.8 N ALBUMIN/GLOBULIN RATIO (test code = A/G) 0.7 1.1-2.2 L CALCIUM (test code = CA) 9.0 MG/DL 8.7-10.5 N BILIRUBIN TOTAL (test code = BILT) 0.2 MG/DL 0.0-1.0 N SGOT/AST (test code = AST) 18 Units/L 15-37 N Results of this assay method may be falsely depressed orelevated if patient is taking sulfasalazine. SGPT/ALT (test code = ALT) 12 Units/L 30-65 L Results of this assay method may be falsely depressed orelevated if patient is taking sulfasalazine. ALKALINE PHOSPHATASE TOTAL (test code = ALKP) 71 Units/L 50-136 N [id number] 03:35:00* Test Item Value Reference Range Interpretation Comme nts MAGNESIUM (test code = MAG) 2.2 MG/DL 1.8-2.4 N CBC W/AUTO [id number] 02:51:00* Test Item Value Reference Range Interpretation Comme nts WHITE BLOOD CELL (test code = WBC) 5.03 x10 3/uL 4.80-10.80 N RED BLOOD CELL (test code = RBC) 3.20 x10 6/uL 4.2-5.4 L HEMOGLOBIN (test code = HGB) 8.9 G/DL 12.0-16.0 L HEMATOCRIT (test code = HCT) 29.2 % 37-47 L MEAN CELL VOLUME (test code = MCV) 91.3 FL 81-99 N MEAN CELL HGB (test code = MCH) 27.8 PG 27-31 N MEAN CELL HGB CONCENTRATION (test code = MCHC) 30.5 G/DL 33-37 L RED CELL DISTRIBUTION WIDTH (test code = RDW) 14.6 % 11.5-14.5 H PLATELET COUNT (test code = PLT) 304 x10 3/uL 150-450 N MEAN PLATELET VOLUME (test c ode = MPV) 10.5 FL 7.4-10.4 H NEUTROPHIL % (test code = NT%) 48.7 % 42-86 N IMMATURE GRANULOCYTE % (test code = IG%) 0.8 % 0.0-2.0 N LYMPHOCYTE % (test code = LY%) 34.8 % 24-44 N MONOCYTE % (test code = MO%) 11.1 % 0.0-4.0 H EOSINOPHIL % (test code = EO%) 4.0 % 0.0-2.7 H BASOPHIL % (test code = BA%) 0.6 % 0.0-0.5 H NUCLEATED RBC % (test code = NRBC%) 0.0 % 0.0-0.0 N NEUTROPHIL # (test code = NT#) 2.45 x10 3/uL 1.8-7.7 N IMMATURE GRANULOCYTE # (test code = IG#) 0.04 x10 3/uL 0.00-0.03 H LYMPHOCYTE # (test code = LY#) 1.75 x10 3/uL 1.0-4.8 N MONOCYTE # (test code = MO#) 0.56 x10 3/uL 0.0-0.8 N EOSINOPHIL # (test code = EO#) 0.20 x10 3/uL 0.0-0.5 N BASOPHIL # (test code = BA#) 0.03 x10 3/uL 0.0-0.2 N NUCLEATED RBC # (test code = NRBC#) 0.0 X10 3/uL 0.0-0.2 N [id number] 21:15:00* Test Item Value Reference Range Interpretation Comme nts GLUBED (test code = GLUBED) 145 MG/DL 65-99 H Performed by cer tified control operator flow coat at [facility] [id number] 18:09:00* Test Item Value Reference Range Interpretation Comme nts GLUBED (test code = GLUBED) 123 MG/DL 65-99 H Performed by cer tified control operator flow coat at [facility] [id number] 11:51:00* Test Item Value Reference Range Interpretation Comme nts GLUBED (test code = GLUBED) 111 MG/DL 65-99 H Performed by cer tified control operator flow coat at [facility] UR SODIUM [id number] 06:36:00* Test Item Value Reference Range Interpretation Comme nts UR SODIUM RANDOM (test code = GRETEL) 22 MMOL/L No established reference range for random urine specimen. UR POTASSIUM [id number] 06:36:00* Test Item Value Reference Range Interpretation Comme nts UR POTASSIUM RANDOM (test code = KU) 14 MMOL/L No established reference range for random urine specimen. UR CHLORIDE [id number] 06:36:00* Test Item Value Reference Range Interpretation Comme nts UR CHLORIDE RANDOM (test code = CLU) 28 MMOL/L No established reference range for random urine specimen. UR UREA NITROGEN [id number] 06:36:00* Test Item Value Reference Range Interpretation Comme nts UR UREA NITROGEN RANDOM (test code = UUN) 559 MG/DL No established reference range for random urine specimen. UR CREATININE [id number] 06:36:00* Test Item Value Reference Range Interpretation Comme nts UR CREATININE RANDOM (test code = CREATU) 28.51 MG/DL No establis hed reference range for random urine specimen. [id number] 06:10:00* Test Item Value Reference Range Interpretation Comme nts GLUBED (test code = GLUBED) 90 MG/DL 65-99 N Performed by cer tified control operator flow coat at [facility] COMPREHENSIVE METABOLIC [id number] 05:07:00* Test Item Value Reference Range Interpretation Comme nts SODIUM (test code = NA) 137 MMOL/L 133-145 POTASSIUM (test code = K) 4.8 MMOL/L 3.6-5.2 N CHLORIDE (test code = CL) 102 MMOL/L 100-108 N CARBON DIOXIDE (test code = CO2) 29 MMOL/L 22-32 N GLUCOSE (test code = GLU) 99 MG/DL 65-99 N Results of this assay method may be falsely depressed orelevated if patient is taking sulfasalazine. BLOOD UREA NITROGEN (test code = BUN) 71 MG/DL 6-20 H GLOMERULAR FILTRATION RATE (test code = GFR) 32 39-90 L Reporting units: mL/min/1.73m\\S\\2 (Modified MDRD Formula) CREATININE (test code = CREAT) 1.58 MG/DL 0.60-1.00 H TOTAL PROTEIN (test code = PROT) 6.0 G/DL 6.4-8.2 L ALBUMIN (test code = ALB) 2.4 G/DL 3.4-5.0 L GLOBULIN (test code = GLOB) 3.6 G/DL 1.5-3.8 N ALBUMIN/GLOBULIN RATIO (test code = A/G) 0.7 1.1-2.2 L CALCIUM (test code = CA) 9.0 MG/DL 8.7-10.5 N BILIRUBIN TOTAL (test code = BILT) 0.2 MG/DL 0.0-1.0 N SGOT/AST (test code = AST) 13 Units/L 15-37 L Results of this assay method may be falsely depressed orelevated if patient is taking sulfasalazine. SGPT/ALT (test code = ALT) 13 Units/L 30-65 L Results of this assay method may be falsely depressed orelevated if patient is taking sulfasalazine. ALKALINE PHOSPHATASE TOTAL (test code = ALKP) 79 Units/L 50-136 N [id number] 05:07:00* Test Item Value Reference Range Interpretation Comme nts MAGNESIUM (test code = MAG) 2.3 MG/DL 1.8-2.4 N CBC W/AUTO [id number] 04:31:00* Test Item Value Reference Range Interpretation Comme nts WHITE BLOOD CELL (test code = WBC) 6.03 x10 3/uL 4.80-10.80 N RED BLOOD CELL (test code = RBC) 3.28 x10 6/uL 4.2-5.4 L HEMOGLOBIN (test code = HGB) 9.4 G/DL 12.0-16.0 L HEMATOCRIT (test code = HCT) 29.6 % 37-47 L MEAN CELL VOLUME (test code = MCV) 90.2 FL 81-99 N MEAN CELL HGB (test code = MCH) 28.7 PG 27-31 N MEAN CELL HGB CONCENTRATION (test code = MCHC) 31.8 G/DL 33-37 L RED CELL DISTRIBUTION WIDTH (test code = RDW) 14.6 % 11.5-14.5 H PLATELET COUNT (test code = PLT) 305 x10 3/uL 150-450 N MEAN PLATELET VOLUME (test c ode = MPV) 10.1 FL 7.4-10.4 N NEUTROPHIL % (test code = NT%) 55.6 % 42-86 N IMMATURE GRANULOCYTE % (test code = IG%) 1.2 % 0.0-2.0 N LYMPHOCYTE % (test code = LY%) 28.2 % 24-44 N MONOCYTE % (test code = MO%) 11.6 % 0.0-4.0 H EOSINOPHIL % (test code = EO%) 2.7 % 0.0-2.7 N BASOPHIL % (test code = BA%) 0.7 % 0.0-0.5 H NUCLEATED RBC % (test code = NRBC%) 0.0 % 0.0-0.0 N NEUTROPHIL # (test code = NT#) 3.36 x10 3/uL 1.8-7.7 N IMMATURE GRANULOCYTE # (test code = IG#) 0.07 x10 3/uL 0.00-0.03 H LYMPHOCYTE # (test code = LY#) 1.70 x10 3/uL 1.0-4.8 N MONOCYTE # (test code = MO#) 0.70 x10 3/uL 0.0-0.8 N EOSINOPHIL # (test code = EO#) 0.16 x10 3/uL 0.0-0.5 N BASOPHIL # (test code = BA#) 0.04 x10 3/uL 0.0-0.2 N NUCLEATED RBC # (test code = NRBC#) 0.0 X10 3/uL 0.0-0.2 N UA RFLX MICROSCOPIC [id number] 20:22:00* Test Item Value Reference Range Interpretation Comme nts UA COLOR (test code = COLU) YELLOW YELLOW UA APPEARANCE (test code = APPU) CLEAR CLEAR UA GLUCOSE DIPSTICK (test code = DGLUU) NEGATIVE mg/dL NEGATIVE UA BILIRUBIN DIPSTICK (test code = BILU) 1+ NEGATIVE A Not able to rule out false positive; No confirmatory test. UA KETONE DIPSTICK (test code = KETU) NEGATIVE mg/dL NEGATIVE UA SPECIFIC GRAVITY (test code = SGU) 1.015 1.001-1.035 N UA BLOOD DIPSTICK (test code = SHAHRIAR) NEGATIVE NEGATIVE UA PH DIPSTICK (test code = KRISTY) 5.0 5.5-7.0 L UA PROTEIN DIPSTICK (test code = PROU) NEGATIVE mg/dL NEGATIVE UA UROBILINOGEN DIPSTICK (test code = URO) NORMAL mg/dL NORMAL UA NITRITE DIPSTICK (test code = MAUREEN) NEGATIVE NEGATIVE UA LEUKOCYTE ESTERASE DIPSTICK (test code = LEUU) NEGATIVE NEGATIVE UA COMMENT (test code = COMU) VOLUME 10-12 ML URINE SPECIMEN DESCRIPTION (test code = UASPEC) Clean Catch UA WBC (test code = WBCU) #/hpf <10 UA SQUAMOUS CELLS (test code = SQU) #/lpf <100 UA CULTURE NEEDED? (test code = UACULT) UA RFLX MICROSCOPIC [id number] 20:22:00* Test Item Value Reference Range Interpretation Comme nts UA COLOR (test code = COLU) YELLOW YELLOW UA APPEARANCE (test code = APPU) CLEAR CLEAR UA GLUCOSE DIPSTICK (test code = DGLUU) NEGATIVE mg/dL NEGATIVE UA BILIRUBIN DIPSTICK (test code = BILU) 1+ NEGATIVE A Not able to rule out false positive; No confirmatory test. UA KETONE DIPSTICK (test code = KETU) NEGATIVE mg/dL NEGATIVE UA SPECIFIC GRAVITY (test code = SGU) 1.015 1.001-1.035 N UA BLOOD DIPSTICK (test code = SHAHRIAR) NEGATIVE NEGATIVE UA PH DIPSTICK (test code = KRISTY) 5.0 5.5-7.0 L UA PROTEIN DIPSTICK (test code = PROU) NEGATIVE mg/dL NEGATIVE UA UROBILINOGEN DIPSTICK (test code = URO) NORMAL mg/dL NORMAL UA NITRITE DIPSTICK (test code = MAUREEN) NEGATIVE NEGATIVE UA LEUKOCYTE ESTERASE DIPSTICK (test code = LEUU) NEGATIVE NEGATIVE UA COMMENT (test code = COMU) VOLUME 10-12 ML URINE SPECIMEN DESCRIPTION (test code = UASPEC) Clean Catch UA WBC (test code = WBCU) < 10 #/hpf <10 UA SQUAMOUS CELLS (test code = SQU) 0 - 20 #/lpf <100 UA CULTURE NEEDED? (test code = UACULT) Criteria not met UR PROTEIN [id number] 20:14:00* Test Item Value Reference Range Interpretation Comme nts UR PROTEIN RANDOM (test code = PROTU) 22 MG/DL No establish ed reference range for random urine specimen. UR CREATININE [id number] 20:14:00* Test Item Value Reference Range Interpretation Comme nts UR CREATININE RANDOM (test code = CREATU) 93.52 MG/DL No establis hed reference range for random urine specimen. PROTEIN/CREATININE [id number] 20:14:00* Test Item Value Reference Range Interpretation Comme nts PROTEIN/CREATININE RATIO (te st code = P/CRATIO) 0.2 < 0.2 COMPREHENSIVE METABOLIC [id number] 17:20:00* Test Item Value Reference Range Interpretation Comme nts SODIUM (test code = NA) 133 MMOL/L 133-145 POTASSIUM (test code = K) 5.1 MMOL/L 3.6-5.2 N CHLORIDE (test code = CL) 96 MMOL/L 100-108 L CARBON DIOXIDE (test code = CO2) 25 MMOL/L 22-32 N GLUCOSE (test code = GLU) 148 MG/DL 65-99 H Results of this assay method may be falsely depressed orelevated if patient is taking sulfasalazine. BLOOD UREA NITROGEN (test code = BUN) 88 MG/DL 6-20 H GLOMERULAR FILTRATION RATE (test code = GFR) 20 39-90 L Reporting units: mL/min/1.73m\\S\\2 (Modified MDRD Formula) CREATININE (test code = CREAT) 2.32 MG/DL 0.60-1.00 H TOTAL PROTEIN (test code = PROT) 8.2 G/DL 6.4-8.2 N ALBUMIN (test code = ALB) 3.5 G/DL 3.4-5.0 N GLOBULIN (test code = GLOB) 4.7 G/DL 1.5-3.8 H ALBUMIN/GLOBULIN RATIO (test code = A/G) 0.7 1.1-2.2 L CALCIUM (test code = CA) 10.4 MG/DL 8.7-10.5 N BILIRUBIN TOTAL (test code = BILT) 0.4 MG/DL 0.0-1.0 N SGOT/AST (test code = AST) 16 Units/L 15-37 N Results of this assay method may be falsely depressed orelevated if patient is taking sulfasalazine. SGPT/ALT (test code = ALT) 15 Units/L 30-65 L Results of this assay method may be falsely depressed orelevated if patient is taking sulfasalazine. ALKALINE PHOSPHATASE TOTAL (test code = ALKP) 105 Units/L 50-136 N [id number] 17:20:00* Test Item Value Reference Range Interpretation Comme nts MAGNESIUM (test code = MAG) 2.6 MG/DL 1.8-2.4 H NT PRO-BRAIN NATRIURETIC [id number] 17:20:00* Test Item Value Reference Range Interpretation Comme nts NT PRO-BRAIN NATRIURETIC PEPTI (test code = PROBNP) 624 PG/ML 0-450 H Results of this assay method may be falsely depressed orelevated if patient is taking high doses of Biotin. - US RETROPERITONEAL [id number] 17:06:00Patient Name: GABBIE CASTANEDA Unit No: [id number] EXAMS: CPT CODE: [id number] US RETROPERITONEAL COM [id number] - US RETROPERITONEAL COM 10/31/2018 3:55 PM Indication: Acute kidney injury COMPARISON: None prior FINDINGS: These are within normal limits for age, the right 9.2 x 4.6 x 4.3 cm with 7 mm echogenic cortex, the left 8.3 x 4.6 x 4.4 cm with 8 mm echogenic cortex. No hydronephrosis seen on either side. The bladder is not well distended measuring only estimated 6 mL volume. Impression: Low-e nd-normal kidney sizes with medical renal disease although no hydronephrosis. Small bladder. at 1706 Reported and signed by: Piotr Amin MD CC: Jose Tom DO; Chele Bass Technologist: Marylou Barron Trnscrbd D/ (1706) Lois Orig Print D/T: S: 10/31/2018 (1710) Probe: [facility] NAME: GABBIE CASTANEDA [address] [facility] PHYS: ARMOND.1 - Jose Tom DO R[address] [place] [address] : 1940 AGE: 78 SEX: F LOC: JOEL 3 PHONE #: [phone] EXAM DATE: 10/31/2018 STATUS: ADM IN FAX #: RAD NO: Page 1 Signed Report- US RETROPERITONEAL [id number] 17:06:00Patient Name: GABBIE CASTANEDA Unit No: [id number] EXAMS: CPT CODE: [id number] US RETROPERITONEAL COM [id number] - US RETROPERITONEAL COM 10/31/2018 3:55 PM Indication: Acute kidney injury COMPARISON: None prior FINDINGS: These are within normal limits for age, the right 9.2 x 4.6 x 4.3 cm with 7 mm echogenic cortex, the left 8.3 x 4.6 x 4.4 cm with 8 mm echogenic cortex. No hydronephrosis seen on either side. The bladder is not well distended measuring only estimated 6 mL volume. Impression: Zbg-yoz-nxydyd kidney sizes with medical renal disease although no hydronephrosis. Small bladder. at 1706 Reported and signed by: Piotr Amin MD CC: Jose R1 Vaishali NARVAEZ; Chele Bass Technologist: Marylou PHILLIPS Trnscrbd D/ (1706) tENRIQUEE Orig Print D/T: S: 10/31/2018 (1710) Probe: [facility] NAME: GABBIE CASTANEDALITZY [address] [facility] PHYS: [facility].1 - Jose Tom DO [address] [place] [address] : 1940 AGE: 78 SEX: F LOC: D.Y314 1 PHONE #: [phone] EXAM DATE: 10/31/2018 STATUS: DIS IN FAX #: RAD NO: Page 1 Signed Report- CT ABD PELVIS W/O [id number] 16:58:00Patient Name: GABBIE CASTANEDA LITZY Unit No: [id number] EXAMS: CPT CODE: [id number] CT ABD PELVIS W/O CONT [id number] Reason: SHEBA and ABD pain - CT ABD PELVIS W/O CONT 10/31/2018 3:55 PM Indication: Acute kidney injury CT abdomen and pelvis kidney stone protocol CT abdomen and pelvis kidney stone protocol COMPARISON:OMPARISON: Routine scanning of the abdomen and pelvis on the kidney stone protocol with no oral nor intravenous contrast. FINDINGS: I see no radiopaque urinary calculi nor evidence of urinary tract obstruction. Chronically dilated left lower pole calyces. No inflammatory stranding is seen. Appendectomy and PASTORA/BSO. Lack of oral and intravenous contrast limits solid organ and GI tract lesions. Calcified aortoiliac plaques. Cholecystectomy. No destructive bony lesion. Sigmoid diverticulosis. Gas bubbles within the bladder lumen, presumably catheterization related. IMPRESSION: No stones nor obstruction. Intraluminal bladder gas bubbles.. at 1658 Reported and signed by: Piotr Amin MD CC: Jose Tom DO; Chele [facility] Dental ClinicTechnologist: Kayli Fuentes RT; Dayami Mg CT Trscrpt Dt/ (8520)t.RYANE Orig Print D/T: S: 10/31/2018 (9420) CTDI: DLP: [facility] NAME: GABBIE CASTANEDA [id number] SP[address] PHYS: [email or web address] - Jose Tom DO R1 Yuriy Gonzalez [id number] : 1940 AGE: 78 SEX: F LOC: JOEL 3 PHONE #: [phone] EXAM DATE: 10/31/2018 STATUS: ADM IN FAX #: RAD NO: DC Dt: PAGE 1 Signed Report- CT ABD PELVIS W/O [id number] 16:58:00Patient Name: GABBIE CASTANEDA Unit No: [id number] EXAMS: CPT CODE: [id number] CT ABD PELVIS W/O CONT [id number] Reason: SHEBA and ABD pain - CT ABD PELVIS W/O CONT 10/31/2018 3:55 PM Indication: Acute kidney injury CT abdomen and pelvis kidney stone protocol CT abdomen and pelvis kidney stone protocol COMPARISON:OMPARISON: Routine scanning of the abdomen and pelvis on the kidney stone protocol with no oral nor intravenous contrast. FINDINGS: I see no radiopaque urinary calculi nor evidence of urinary tract obstruction. Chronically dilated left lower pole calyces. No inflammatory stranding is seen. Appendectomy and PASTORA/BSO. Lack of oral and intravenous contrast limits solid organ and GI tract lesions. Calcified aortoiliac plaques. Cholecystectomy. No destructive bony lesion. Sigmoid diverticulosis. Gas bubbles within the bladder lumen, presumably catheterization related. IMPRESSION: No stones nor obstruction. Intraluminal bladder gas bubbles.. at 4737 Reported and signed by: Piotr Amin MD CC: Jose Tom DO; Chele [facility] Technologist: Kayli Fuentes RT; Dayami Mg CT Trscrpt Dt/ (9148)KellenPKE Orig Print D/T: S: 10/31/2018 (1702) CTDI: DLP: [facility] NAME: GABBIE CASTANEDA [id number] SP[address] PHYS: [email or web address] - Jose TomTx [id number] : 1940 AGE: 78 SEX: F LOC: D.Y314 1 PHONE #: [phone] EXAM DATE: 10/31/2018 STATUS: DIS IN FAX #: RAD NO:DC Dt: 11/02/2018 PAGE 1 Signed Report- XR CHEST 2 [id number] 16:24:00 Patient Name: GABBIE CASTANEDA Unit No: [id number] EXAMS: CPT CODE: [id number] XR CHEST 2 V 40435 Reason: SOB INDICATION: Shortness of breath. COMPARISON: February 05, 2017. FINDINGS: 2 views of the chest were obtained. Other than bibasilar scarring/subsegmental atelectasis, the lungs are clear. No pleural effusion. Cardiac silhouette is within normal. Thoracic aorta is atherosclerotic and tortuous. IMPRESSION: No evidence of acute cardiopulmonary disease. at 1624 Reported and signed by: Luke Matson MD CC: Jose Bass Technologist: Ashley Diggs RT Trscrpt Dt/ (1624)[email or web address] Orig Print D/T: S: 10/31/2018 (7487) [facility] NAME: GABBIE CASTANEDA [address] PHYS: NGUTH.[place] - [place] [address] : 1940 AGE: 78 SEX: F LOC: D.HERMS 3 PHONE #: [phone] EXAM DATE: 10/31/2018 STATUS: ADM IN FAX #: RAD NO: DC Dt: PAGE1 Signed Report- XR CHEST 2 [id number] 16:24:00Patient Name: GABBIE CASTANEDA Unit No: [id number] EXAMS: CPT CODE: [id number] XR CHEST 2 V [id number] Reason: SOB INDICATION: Shortness of breath. COMPARISON: February 05, 2017. FINDINGS: 2 views of the chest were obtained. Other than bibasilar scarring/subsegmental atelectasis, the lungs are clear. No pleural effusion. Cardiac silhouette is within normal. Thoracic aorta is atherosclerotic and tortuous. IMPRESSION: No evidence of acute cardiopulmonary disease. at 1624 Reported and signed by: Luke Matson MD CC: Jose Tom DO; Chele Bass Technologist: Ashley Diggs RT Trscrpt Dt/ (0573)t.[email or web address] Orig Print D/T: S: 10/31/2018 (8297) [facility] NAME: GABBIE CASTANEDA [address] PHYS: NGUTH.1 - Jose [place] DO [address] [place] [address] : 1940 AGE: 78 SEX: F : D.Y314 1 PHONE #: [phone] EXAM DATE: 10/31/2018 STATUS: DIS IN FAX #: RAD NO: DC Dt: 11/02/2018 PAGE 1 Signed ReportCBC W/AUTO [id number] 16:01:00* Test Item Value Reference Range Interpretation Comme nts WHITE BLOOD CELL (test code = WBC) 9.94 x10 3/uL 4.80-10.80 N RED BLOOD CELL (test code = RBC) 4.09 x10 6/uL 4.2-5.4 L HEMOGLOBIN (test code = HGB) 11.4 G/DL 12.0-16.0 L HEMATOCRIT (test code = HCT) 36.8 % 37-47 L MEAN CELL VOLUME (test code = MCV) 90.0 FL 81-99 N MEAN CELL HGB (test code = MCH) 27.9 PG 27-31 N MEAN CELL HGB CONCENTRATION (test code = MCHC) 31.0 G/DL 33-37 L RED CELL DISTRIBUTION WIDTH (test code = RDW) 14.5 % 11.5-14.5 N PLATELET COUNT (test code = PLT) 454 x10 3/uL 150-450 H MEAN PLATELET VOLUME (test c ode = MPV) 10.8 FL 7.4-10.4 H NEUTROPHIL % (test code = NT%) 77.8 % 42-86 N IMMATURE GRANULOCYTE % (test code = IG%) 0.8 % 0.0-2.0 N LYMPHOCYTE % (test code = LY%) 14.3 % 24-44 L MONOCYTE % (test code = MO%) 6.2 % 0.0-4.0 H EOSINOPHIL % (test code = EO%) 0.4 % 0.0-2.7 N BASOPHIL % (test code = BA%) 0.5 % 0.0-0.5 N NUCLEATED RBC % (test code = NRBC%) 0.0 % 0.0-0.0 N NEUTROPHIL # (test code = NT#) 7.73 x10 3/uL 1.8-7.7 H IMMATURE GRANULOCYTE # (test code = IG#) 0.08 x10 3/uL 0.00-0.03 H LYMPHOCYTE # (test code = LY#) 1.42 x10 3/uL 1.0-4.8 N MONOCYTE # (test code = MO#) 0.62 x10 3/uL 0.0-0.8 N EOSINOPHIL # (test code = EO#) 0.04 x10 3/uL 0.0-0.5 N BASOPHIL # (test code = BA#) 0.05 x10 3/uL 0.0-0.2 N NUCLEATED RBC # (test code = NRBC#) 0.0 X10 3/uL 0.0-0.2 N [id number] 10:16:00* Test Item Value Reference Range Interpretation Comme nts GLUBED (test code = GLUBED) 100 MG/DL 65-99 H Performed by cer tified control operator flow coat at [facility] [id number] 06:24:00* Test Item Value Reference Range Interpretation Comme nts GLUBED (test code = GLUBED) 81 MG/DL 65-99 N Performed by cer tified control operator flow coat at [facility] COMPREHENSIVE METABOLIC [id number] 03:59:00* Test Item Value Reference Range Interpretation Comme nts SODIUM (test code = NA) 141 MMOL/L 133-145 N POTASSIUM (test code = K) 4.5 MMOL/L 3.6-5.2 N CHLORIDE (test code = CL) 105 MMOL/L 100-108 N CARBON DIOXIDE (test code = CO2) 29 MMOL/L 22-32 N GLUCOSE (test code = GLU) 104 MG/DL 65-99 H Results of this assay method may be falsely depressed orelevated if patient is taking sulfasalazine. BLOOD UREA NITROGEN (test code = BUN) 34 MG/DL 6-20 H GLOMERULAR FILTRATION RATE (test code = GFR) 33 39-90 L Reporting units: mL/min/1.73m\\S\\2 (Modified MDRD Formula) CREATININE (test code = CREAT) 1.55 MG/DL 0.60-1.00 H TOTAL PROTEIN (test code = PROT) 5.9 G/DL 6.4-8.2 L ALBUMIN (test code = ALB) 2.4 G/DL 3.4-5.0 L GLOBULIN (test code = GLOB) 3.5 G/DL 1.5-3.8 N ALBUMIN/GLOBULIN RATIO (test code = A/G) 0.7 1.1-2.2 L CALCIUM (test code = CA) 8.9 MG/DL 8.7-10.5 N BILIRUBIN TOTAL (test code = BILT) 0.3 MG/DL 0.0-1.0 N SGOT/AST (test code = AST) 18 Units/L 15-37 N Results of this assay method may be falsely depressed orelevated if patient is taking sulfasalazine. SGPT/ALT (test code = ALT) 17 Units/L 30-65 L Results of this assay method may be falsely depressed orelevated if patient is taking sulfasalazine. ALKALINE PHOSPHATASE TOTAL (test code = ALKP) 93 Units/L 50-136 N [id number] 03:59:00* Test Item Value Reference Range Interpretation Comme nts MAGNESIUM (test code = MAG) 2.3 MG/DL 1.8-2.4 N CBC W/AUTO [id number] 03:46:00* Test Item Value Reference Range Interpretation Comme nts WHITE BLOOD CELL (test code = WBC) 9.13 x10 3/uL 4.80-10.80 N RED BLOOD CELL (test code = RBC) 3.55 x10 6/uL 4.2-5.4 L HEMOGLOBIN (test code = HGB) 10.1 G/DL 12.0-16.0 L HEMATOCRIT (test code = HCT) 33.1 % 37-47 L MEAN CELL VOLUME (test code = MCV) 93.2 FL 81-99 N MEAN CELL HGB (test code = MCH) 28.5 PG 27-31 N MEAN CELL HGB CONCENTRATION (test code = MCHC) 30.5 G/DL 33-37 L RED CELL DISTRIBUTION WIDTH (test code = RDW) 14.8 % 11.5-14.5 H PLATELET COUNT (test code = PLT) 318 x10 3/uL 150-450 N MEAN PLATELET VOLUME (test c ode = MPV) 10.4 FL 7.4-10.4 N NEUTROPHIL % (test code = NT%) 65.5 % 42-86 N IMMATURE GRANULOCYTE % (test code = IG%) 1.8 % 0.0-2.0 N LYMPHOCYTE % (test code = LY%) 17.2 % 24-44 L MONOCYTE % (test code = MO%) 10.5 % 0.0-4.0 H EOSINOPHIL % (test code = EO%) 4.2 % 0.0-2.7 H BASOPHIL % (test code = BA%) 0.8 % 0.0-0.5 H NUCLEATED RBC % (test code = NRBC%) 0.0 % 0.0-0.0 N NEUTROPHIL # (test code = NT#) 5.99 x10 3/uL 1.8-7.7 N IMMATURE GRANULOCYTE # (test code = IG#) 0.16 x10 3/uL 0.00-0.03 H LYMPHOCYTE # (test code = LY#) 1.57 x10 3/uL 1.0-4.8 N MONOCYTE # (test code = MO#) 0.96 x10 3/uL 0.0-0.8 H EOSINOPHIL # (test code = EO#) 0.38 x10 3/uL 0.0-0.5 N BASOPHIL # (test code = BA#) 0.07 x10 3/uL 0.0-0.2 N NUCLEATED RBC # (test code = NRBC#) 0.0 X10 3/uL 0.0-0.2 N [id number] 20:25:00* Test Item Value Reference Range Interpretation Comme nts GLUBED (test code = GLUBED) 113 MG/DL 65-99 H Performed by cer tified control operator flow coat at [facility] [id number] 16:45:00* Test Item Value Reference Range Interpretation Comme nts GLUBED (test code = GLUBED) 111 MG/DL 65-99 H Performed by cer tified control operator flow coat at [facility] [id number] 10:49:00* Test Item Value Reference Range Interpretation Comme nts GLUBED (test code = GLUBED) 123 MG/DL 65-99 H Performed by cer tified control operator flow coat at [facility] [id number] 06:20:00* Test Item Value Reference Range Interpretation Comme nts GLUBED (test code = GLUBED) 102 MG/DL 65-99 H Performed by cer tified control operator flow coat at [facility] COMPREHENSIVE METABOLIC [id number] 04:09:00* Test Item Value Reference Range Interpretation Comme nts SODIUM (test code = NA) 141 MMOL/L 133-145 N POTASSIUM (test code = K) 3.9 MMOL/L 3.6-5.2 N CHLORIDE (test code = CL) 104 MMOL/L 100-108 N CARBON DIOXIDE (test code = CO2) 29 MMOL/L 22-32 N GLUCOSE (test code = GLU) 106 MG/DL 65-99 H Results of this assay method may be falsely depressed orelevated if patient is taking sulfasalazine. BLOOD UREA NITROGEN (test code = BUN) 26 MG/DL 6-20 H GLOMERULAR FILTRATION RATE (test code = GFR) 48 39-90 N Reporting units: mL/min/1.73m\\S\\2 (Modified MDRD Formula) CREATININE (test code = CREAT) 1.11 MG/DL 0.60-1.00 H TOTAL PROTEIN (test code = PROT) 5.9 G/DL 6.4-8.2 L ALBUMIN (test code = ALB) 2.4 G/DL 3.4-5.0 L GLOBULIN (test code = GLOB) 3.5 G/DL 1.5-3.8 N ALBUMIN/GLOBULIN RATIO (test code = A/G) 0.7 1.1-2.2 L CALCIUM (test code = CA) 8.8 MG/DL 8.7-10.5 N BILIRUBIN TOTAL (test code = BILT) 0.3 MG/DL 0.0-1.0 N SGOT/AST (test code = AST) 13 Units/L 15-37 L Results of this assay method may be falsely depressed orelevated if patient is taking sulfasalazine. SGPT/ALT (test code = ALT) 14 Units/L 30-65 L Results of this assay method may be falsely depressed orelevated if patient is taking sulfasalazine. ALKALINE PHOSPHATASE TOTAL (test code = ALKP) 94 Units/L 50-136 N [id number] 04:09:00* Test Item Value Reference Range Interpretation Comme nts MAGNESIUM (test code = MAG) 2.1 MG/DL 1.8-2.4 N CBC W/AUTO [id number] 03:47:00* Test Item Value Reference Range Interpretation Comme nts WHITE BLOOD CELL (test code = WBC) 9.05 x10 3/uL 4.80-10.80 N RED BLOOD CELL (test code = RBC) 3.33 x10 6/uL 4.2-5.4 L HEMOGLOBIN (test code = HGB) 9.6 G/DL 12.0-16.0 L HEMATOCRIT (test code = HCT) 30.9 % 37-47 L MEAN CELL VOLUME (test code = MCV) 92.8 FL 81-99 N MEAN CELL HGB (test code = MCH) 28.8 PG 27-31 N MEAN CELL HGB CONCENTRATION (test code = MCHC) 31.1 G/DL 33-37 L RED CELL DISTRIBUTION WIDTH (test code = RDW) 14.6 % 11.5-14.5 H PLATELET COUNT (test code = PLT) 321 x10 3/uL 150-450 N MEAN PLATELET VOLUME (test c ode = MPV) 10.2 FL 7.4-10.4 N NEUTROPHIL % (test code = NT%) 66.2 % 42-86 N IMMATURE GRANULOCYTE % (test code = IG%) 1.8 % 0.0-2.0 N LYMPHOCYTE % (test code = LY%) 16.7 % 24-44 L MONOCYTE % (test code = MO%) 10.3 % 0.0-4.0 H EOSINOPHIL % (test code = EO%) 4.3 % 0.0-2.7 H BASOPHIL % (test code = BA%) 0.7 % 0.0-0.5 H NUCLEATED RBC % (test code = NRBC%) 0.0 % 0.0-0.0 N NEUTROPHIL # (test code = NT#) 6.00 x10 3/uL 1.8-7.7 N IMMATURE GRANULOCYTE # (test code = IG#) 0.16 x10 3/uL 0.00-0.03 H LYMPHOCYTE # (test code = LY#) 1.51 x10 3/uL 1.0-4.8 N MONOCYTE # (test code = MO#) 0.93 x10 3/uL 0.0-0.8 H EOSINOPHIL # (test code = EO#) 0.39 x10 3/uL 0.0-0.5 N BASOPHIL # (test code = BA#) 0.06 x10 3/uL 0.0-0.2 N NUCLEATED RBC # (test code = NRBC#) 0.0 X10 3/uL 0.0-0.2 N [id number] 20:32:00* Test Item Value Reference Range Interpretation Comme nts GLUBED (test code = GLUBED) 94 MG/DL 65-99 N Performed by cer tified control operator flow coat at [facility] [id number] 16:49:00* Test Item Value Reference Range Interpretation Comme nts GLUBED (test code = GLUBED) 96 MG/DL 65-99 N Performed by cer tified control operator flow coat at [facility] [id number] 11:57:00* Test Item Value Reference Range Interpretation Comme nts GLUBED (test code = GLUBED) 136 MG/DL 65-99 H Performed by cer tified control operator flow coat at [facility] COMPREHENSIVE METABOLIC [id number] 07:28:00* Test Item Value Reference Range Interpretation Comme nts SODIUM (test code = NA) 143 MMOL/L 133-145 N POTASSIUM (test code = K) 3.9 MMOL/L 3.6-5.2 N CHLORIDE (test code = CL) 107 MMOL/L 100-108 N CARBON DIOXIDE (test code = CO2) 31 MMOL/L 22-32 N GLUCOSE (test code = GLU) 97 MG/DL 65-99 N Results of this assay method may be falsely depressed orelevated if patient is taking sulfasalazine. BLOOD UREA NITROGEN (test code = BUN) 21 MG/DL 6-20 H GLOMERULAR FILTRATION RATE (test code = GFR) 52 39-90 N Reporting units: mL/min/1.73m\\S\\2 (Modified MDRD Formula) CREATININE (test code = CREAT) 1.04 MG/DL 0.60-1.00 H TOTAL PROTEIN (test code = PROT) 5.8 G/DL 6.4-8.2 L ALBUMIN (test code = ALB) 2.4 G/DL 3.4-5.0 L GLOBULIN (test code = GLOB) 3.4 G/DL 1.5-3.8 N ALBUMIN/GLOBULIN RATIO (test code = A/G) 0.7 1.1-2.2 L CALCIUM (test code = CA) 8.8 MG/DL 8.7-10.5 N BILIRUBIN TOTAL (test code = BILT) 0.3 MG/DL 0.0-1.0 N SGOT/AST (test code = AST) 19 Units/L 15-37 N Results of this assay method may be falsely depressed orelevated if patient is taking sulfasalazine. SGPT/ALT (test code = ALT) 21 Units/L 30-65 L Results of this assay method may be falsely depressed orelevated if patient is taking sulfasalazine. ALKALINE PHOSPHATASE TOTAL (test code = ALKP) 88 Units/L 50-136 N [id number] 07:28:00* Test Item Value Reference Range Interpretation Comme nts MAGNESIUM (test code = MAG) 2.1 MG/DL 1.8-2.4 N CBC W/AUTO [id number] 07:26:00* Test Item Value Reference Range Interpretation Comme nts WHITE BLOOD CELL (test code = WBC) 7.68 x10 3/uL 4.80-10.80 N RED BLOOD CELL (test code = RBC) 3.38 x10 6/uL 4.2-5.4 L HEMOGLOBIN (test code = HGB) 9.6 G/DL 12.0-16.0 L HEMATOCRIT (test code = HCT) 31.0 % 37-47 L MEAN CELL VOLUME (test code = MCV) 91.7 FL 81-99 N MEAN CELL HGB (test code = MCH) 28.4 PG 27-31 N MEAN CELL HGB CONCENTRATION (test code = MCHC) 31.0 G/DL 33-37 L RED CELL DISTRIBUTION WIDTH (test code = RDW) 14.5 % 11.5-14.5 N PLATELET COUNT (test code = PLT) 310 x10 3/uL 150-450 N MEAN PLATELET VOLUME (test c ode = MPV) 9.9 FL 7.4-10.4 N NEUTROPHIL % (test code = NT%) 61.3 % 42-86 N IMMATURE GRANULOCYTE % (test code = IG%) 2.1 % 0.0-2.0 H LYMPHOCYTE % (test code = LY%) 21.2 % 24-44 L MONOCYTE % (test code = MO%) 9.8 % 0.0-4.0 H EOSINOPHIL % (test code = EO%) 5.1 % 0.0-2.7 H BASOPHIL % (test code = BA%) 0.5 % 0.0-0.5 N NUCLEATED RBC % (test code = NRBC%) 0.0 % 0.0-0.0 N NEUTROPHIL # (test code = NT#) 4.71 x10 3/uL 1.8-7.7 N IMMATURE GRANULOCYTE # (test code = IG#) 0.16 x10 3/uL 0.00-0.03 H LYMPHOCYTE # (test code = LY#) 1.63 x10 3/uL 1.0-4.8 N MONOCYTE # (test code = MO#) 0.75 x10 3/uL 0.0-0.8 N EOSINOPHIL # (test code = EO#) 0.39 x10 3/uL 0.0-0.5 N BASOPHIL # (test code = BA#) 0.04 x10 3/uL 0.0-0.2 N NUCLEATED RBC # (test code = NRBC#) 0.0 X10 3/uL 0.0-0.2 N [id number] 06:12:00* Test Item Value Reference Range Interpretation Comme nts GLUBED (test code = GLUBED) 95 MG/DL 65-99 N Performed by cer tified control operator flow coat at [facility] [id number] 21:07:00* Test Item Value Reference Range Interpretation Comme nts GLUBED (test code = GLUBED) 89 MG/DL 65-99 N Performed by cer tified control operator flow coat at [facility] [id number] 16:54:00* Test Item Value Reference Range Interpretation Comme nts GLUBED (test code = GLUBED) 122 MG/DL 65-99 H Performed by cer tified control operator flow coat at [facility] - [facility] UNI/[id number] 15:41:00Patient Name: GABBIE CASTANEDA Unit No: [id number] EXAMS: CPT CODE: [id number] [facility]/LTD [address] Technique: The right upper extremity veins were interrogated with grayscale, color, and spectral Doppler imaging. Compression was applied where applicable. Findings: There is occlusive thrombus in the right cephalic vein at the mid humerus level, above the elbow. There is edema of the surrounding soft tissues. The remaining visualized upper extremity veins demonstrate no echogenic filling defect. There is normal compressibility, flow and augmentation of flow with appropriate maneuvers. IMPRESSION: Occlusive DVT of the right cephalic vein. Discussed with the patient's floor nurse, Armando, who will relay the results to the patient's physician. at 1540 Reported and signed by: Zhou Dallas MD CC: Vasquez Bass Technologist: Horace PHILLIPS Trnscrbd D/ (2019) t.[email or web address].MMC3 Orig Print D/T: S: 10/18/2018 (0273) Probe: [facility] NAME: GABBIE CASTANEDA [address] PHYS: Vasquez Lucio DO R[address] [place] [address] : 1940 AGE: 78 SEX: F LOC: D.Y307 1 PHONE #: [phone] EXAM DATE: 10/18/2018 STATUS: ADM IN FAX #: RAD NO: Page 1 Signed Report- [facility] VEIN UNI/[id number] 15:41:00Patient Name: GABBIE CASTANEDA Unit No: [id number] EXAMS: CPT CODE: [id number] [facility]/LTD [address] Technique: The right upper extremity veins were interrogated with grayscale, color, and spectralDoppler imaging. Compression was applied where applicable. Findings: There is occlusive thrombus inthe right cephalic vein at the mid humerus level, above the elbow. There is edema of the surrounding soft tissues. The remaining visualized upper extremity veins demonstrate no echogenic filling defect. There is normal compressibility, flow and augmentation of flow with appropriate maneuvers. IMPRESSION: Occlusive DVT of the right cephalic vein. Discussed with the patient's floor nurse, Armando, who will relay the results to the patient's physician. Electronically Signed by Zhou Dallas MD on 0 10/18/2018 at 1541 Reported and signed by: Zhou Dallas MD CC: Vasquez Noel DO; Chele Bass Technologist: Horace PHILLIPS Trnscrbd D/ (1368) [email or web address] Orig Print D/T: S: 10/18/2018 (8005) Probe: [facility] NAME: MANOHARGABBIE LITZY [address] [facility]D PHYS: [place] [address] : 1940 AGE: 78 SEX: F LOC: D.Y307 1 PHONE #: [phone] EXAM DATE: 10/18/2018 STATUS: DIS IN FAX #: RAD NO: Page 1 Signed [id number] 10:37:00* Test Item Value Reference Range Interpretation Comme nts GLUBED (test code = GLUBED) 131 MG/DL 65-99 H Performed by cer laurent control operator flow coat at [facility] [id number] 06:08:00* Test Item Value Reference Range Interpretation Comme nts GLUBED (test code = GLUBED) 94 MG/DL 65-99 N Performed by eliazar irahetaied control operator flow coat at [facility] COMPREHENSIVE METABOLIC [id number] 04:45:00* Test Item Value Reference Range Interpretation Comme nts SODIUM (test code = NA) 144 MMOL/L 133-145 N POTASSIUM (test code = K) 4.0 MMOL/L 3.6-5.2 N CHLORIDE (test code = CL) 108 MMOL/L 100-108 N CARBON DIOXIDE (test code = CO2) 28 MMOL/L 22-32 N GLUCOSE (test code = GLU) 98 MG/DL 65-99 N Results of this assay method may be falsely depressed orelevated if patient is taking sulfasalazine. BLOOD UREA NITROGEN (test code = BUN) 24 MG/DL 6-20 H GLOMERULAR FILTRATION RATE (test code = GFR) 48 39-90 N Reporting units: mL/min/1.73m\\S\\2 (Modified MDRD Formula) CREATININE (test code = CREAT) 1.10 MG/DL 0.60-1.00 H TOTAL PROTEIN (test code = PROT) 5.8 G/DL 6.4-8.2 L ALBUMIN (test code = ALB) 2.4 G/DL 3.4-5.0 L GLOBULIN (test code = GLOB) 3.4 G/DL 1.5-3.8 N ALBUMIN/GLOBULIN RATIO (test code = A/G) 0.7 1.1-2.2 L CALCIUM (test code = CA) 8.8 MG/DL 8.7-10.5 N BILIRUBIN TOTAL (test code = BILT) 0.3 MG/DL 0.0-1.0 N SGOT/AST (test code = AST) 22 Units/L 15-37 N Results of this assay method may be falsely depressed orelevated if patient is taking sulfasalazine. SGPT/ALT (test code = ALT) 19 Units/L 30-65 L Results of this assay method may be falsely depressed orelevated if patient is taking sulfasalazine. ALKALINE PHOSPHATASE TOTAL (test code = ALKP) 95 Units/L 50-136 N [id number] 04:45:00* Test Item Value Reference Range Interpretation Comme nts MAGNESIUM (test code = MAG) 2.1 MG/DL 1.8-2.4 N CBC W/AUTO [id number] 04:26:00* Test Item Value Reference Range Interpretation Comme nts WHITE BLOOD CELL (test code = WBC) 8.34 x10 3/uL 4.80-10.80 N RED BLOOD CELL (test code = RBC) 3.40 x10 6/uL 4.2-5.4 L HEMOGLOBIN (test code = HGB) 9.6 G/DL 12.0-16.0 L HEMATOCRIT (test code = HCT) 31.2 % 37-47 L MEAN CELL VOLUME (test code = MCV) 91.8 FL 81-99 N MEAN CELL HGB (test code = MCH) 28.2 PG 27-31 N MEAN CELL HGB CONCENTRATION (test code = MCHC) 30.8 G/DL 33-37 L RED CELL DISTRIBUTION WIDTH (test code = RDW) 14.6 % 11.5-14.5 H PLATELET COUNT (test code = PLT) 325 x10 3/uL 150-450 N MEAN PLATELET VOLUME (test c ode = MPV) 9.8 FL 7.4-10.4 N NEUTROPHIL % (test code = NT%) 63.4 % 42-86 N IMMATURE GRANULOCYTE % (test code = IG%) 2.6 % 0.0-2.0 H LYMPHOCYTE % (test code = LY%) 19.7 % 24-44 L MONOCYTE % (test code = MO%) 9.6 % 0.0-4.0 H EOSINOPHIL % (test code = EO%) 4.1 % 0.0-2.7 H BASOPHIL % (test code = BA%) 0.6 % 0.0-0.5 H NUCLEATED RBC % (test code = NRBC%) 0.2 % 0.0-0.0 H NEUTROPHIL # (test code = NT#) 5.29 x10 3/uL 1.8-7.7 N IMMATURE GRANULOCYTE # (test code = IG#) 0.22 x10 3/uL 0.00-0.03 H LYMPHOCYTE # (test code = LY#) 1.64 x10 3/uL 1.0-4.8 N MONOCYTE # (test code = MO#) 0.80 x10 3/uL 0.0-0.8 N EOSINOPHIL # (test code = EO#) 0.34 x10 3/uL 0.0-0.5 N BASOPHIL # (test code = BA#) 0.05 x10 3/uL 0.0-0.2 N NUCLEATED RBC # (test code = NRBC#) 0.0 X10 3/uL 0.0-0.2 N [id number] 21:21:00* Test Item Value Reference Range Interpretation Comme nts GLUBED (test code = GLUBED) 95 MG/DL 65-99 N Performed by cer tified control operator flow coat at [facility] [id number] 17:04:00* Test Item Value Reference Range Interpretation Comme nts GLUBED (test code = GLUBED) 138 MG/DL 65-99 H Performed by cer tified control operator flow coat at [facility] [id number] 11:34:00* Test Item Value Reference Range Interpretation Comme nts GLUBED (test code = GLUBED) 112 MG/DL 65-99 H Performed by cer tified control operator flow coat at [facility] [id number] 06:39:00* Test Item Value Reference Range Interpretation Comme nts GLUBED (test code = GLUBED) 89 MG/DL 65-99 N Performed by cer tified control operator flow coat at [facility] COMPREHENSIVE METABOLIC [id number] 04:36:00* Test Item Value Reference Range Interpretation Comme nts SODIUM (test code = NA) 143 MMOL/L 133-145 N POTASSIUM (test code = K) 4.3 MMOL/L 3.6-5.2 N CHLORIDE (test code = CL) 108 MMOL/L 100-108 N CARBON DIOXIDE (test code = CO2) 29 MMOL/L 22-32 N GLUCOSE (test code = GLU) 89 MG/DL 65-99 N Results of this assay method may be falsely depressed orelevated if patient is taking sulfasalazine. BLOOD UREA NITROGEN (test code = BUN) 29 MG/DL 6-20 H GLOMERULAR FILTRATION RATE (test code = GFR) 47 39-90 N Reporting units: mL/min/1.73m\\S\\2 (Modified MDRD Formula) CREATININE (test code = CREAT) 1.13 MG/DL 0.60-1.00 H TOTAL PROTEIN (test code = PROT) 5.7 G/DL 6.4-8.2 L ALBUMIN (test code = ALB) 2.3 G/DL 3.4-5.0 L GLOBULIN (test code = GLOB) 3.4 G/DL 1.5-3.8 N ALBUMIN/GLOBULIN RATIO (test code = A/G) 0.7 1.1-2.2 L CALCIUM (test code = CA) 8.4 MG/DL 8.7-10.5 L BILIRUBIN TOTAL (test code = BILT) 0.2 MG/DL 0.0-1.0 N SGOT/AST (test code = AST) 20 Units/L 15-37 N Results of this assay method may be falsely depressed orelevated if patient is taking sulfasalazine. SGPT/ALT (test code = ALT) 18 Units/L 30-65 L Results of this assay method may be falsely depressed orelevated if patient is taking sulfasalazine. ALKALINE PHOSPHATASE TOTAL (test code = ALKP) 89 Units/L 50-136 N [id number] 04:36:00* Test Item Value Reference Range Interpretation Comme nts MAGNESIUM (test code = MAG) 2.0 MG/DL 1.8-2.4 N CBC W/AUTO [id number] 04:04:00* Test Item Value Reference Range Interpretation Comme nts WHITE BLOOD CELL (test code = WBC) 7.43 x10 3/uL 4.80-10.80 N RED BLOOD CELL (test code = RBC) 3.34 x10 6/uL 4.2-5.4 L HEMOGLOBIN (test code = HGB) 9.9 G/DL 12.0-16.0 L HEMATOCRIT (test code = HCT) 30.9 % 37-47 L MEAN CELL VOLUME (test code = MCV) 92.5 FL 81-99 N MEAN CELL HGB (test code = MCH) 29.6 PG 27-31 N MEAN CELL HGB CONCENTRATION (test code = MCHC) 32.0 G/DL 33-37 L RED CELL DISTRIBUTION WIDTH (test code = RDW) 14.6 % 11.5-14.5 H PLATELET COUNT (test code = PLT) 323 x10 3/uL 150-450 N MEAN PLATELET VOLUME (test c ode = MPV) 9.8 FL 7.4-10.4 N NEUTROPHIL % (test code = NT%) 60.8 % 42-86 N IMMATURE GRANULOCYTE % (test code = IG%) 3.9 % 0.0-2.0 H LYMPHOCYTE % (test code = LY%) 18.2 % 24-44 L MONOCYTE % (test code = MO%) 12.5 % 0.0-4.0 H EOSINOPHIL % (test code = EO%) 3.8 % 0.0-2.7 H BASOPHIL % (test code = BA%) 0.8 % 0.0-0.5 H NUCLEATED RBC % (test code = NRBC%) 0.0 % 0.0-0.0 N NEUTROPHIL # (test code = NT#) 4.52 x10 3/uL 1.8-7.7 N IMMATURE GRANULOCYTE # (test code = IG#) 0.29 x10 3/uL 0.00-0.03 H LYMPHOCYTE # (test code = LY#) 1.35 x10 3/uL 1.0-4.8 N MONOCYTE # (test code = MO#) 0.93 x10 3/uL 0.0-0.8 H EOSINOPHIL # (test code = EO#) 0.28 x10 3/uL 0.0-0.5 N BASOPHIL # (test code = BA#) 0.06 x10 3/uL 0.0-0.2 N NUCLEATED RBC # (test code = NRBC#) 0.0 X10 3/uL 0.0-0.2 N [id number] 21:53:00* Test Item Value Reference Range Interpretation Comme nts GLUBED (test code = GLUBED) 141 MG/DL 65-99 H Performed by cer tified control operator flow coat at [facility] [id number] 16:40:00* Test Item Value Reference Range Interpretation Comme nts GLUBED (test code = GLUBED) 98 MG/DL 65-99 N Performed by cer tified control operator flow coat at [facility] [id number] 12:15:00* Test Item Value Reference Range Interpretation Comme nts GLUBED (test code = GLUBED) 87 MG/DL 65-99 N Performed by cer tified control operator flow coat at [facility] [id number] 06:42:00* Test Item Value Reference Range Interpretation Comme nts GLUBED (test code = GLUBED) 108 MG/DL 65-99 H Performed by cer tified control operator flow coat at [facility] COMPREHENSIVE METABOLIC [id number] 05:27:00* Test Item Value Reference Range Interpretation Comme nts SODIUM (test code = NA) 143 MMOL/L 133-145 N POTASSIUM (test code = K) 4.0 MMOL/L 3.6-5.2 N CHLORIDE (test code = CL) 107 MMOL/L 100-108 N CARBON DIOXIDE (test code = CO2) 28 MMOL/L 22-32 N GLUCOSE (test code = GLU) 113 MG/DL 65-99 H Results of this assay method may be falsely depressed orelevated if patient is taking sulfasalazine. BLOOD UREA NITROGEN (test code = BUN) 32 MG/DL 6-20 H GLOMERULAR FILTRATION RATE (test code = GFR) 45 39-90 N Reporting units: mL/min/1.73m\\S\\2 (Modified MDRD Formula) CREATININE (test code = CREAT) 1.17 MG/DL 0.60-1.00 H TOTAL PROTEIN (test code = PROT) 5.7 G/DL 6.4-8.2 L ALBUMIN (test code = ALB) 2.3 G/DL 3.4-5.0 L GLOBULIN (test code = GLOB) 3.4 G/DL 1.5-3.8 N ALBUMIN/GLOBULIN RATIO (test code = A/G) 0.7 1.1-2.2 L CALCIUM (test code = CA) 8.7 MG/DL 8.7-10.5 N BILIRUBIN TOTAL (test code = BILT) 0.2 MG/DL 0.0-1.0 N SGOT/AST (test code = AST) 11 Units/L 15-37 L Results of this assay method may be falsely depressed orelevated if patient is taking sulfasalazine. SGPT/ALT (test code = ALT) 9 Units/L 30-65 L Results of this assay method may be falsely depressed orelevated if patient is taking sulfasalazine. ALKALINE PHOSPHATASE TOTAL (test code = ALKP) 81 Units/L 50-136 N [id number] 05:27:00* Test Item Value Reference Range Interpretation Comme nts MAGNESIUM (test code = MAG) 2.2 MG/DL 1.8-2.4 N CBC W/AUTO [id number] 05:00:00* Test Item Value Reference Range Interpretation Comme nts WHITE BLOOD CELL (test code = WBC) 7.41 x10 3/uL 4.80-10.80 N RED BLOOD CELL (test code = RBC) 3.25 x10 6/uL 4.2-5.4 L HEMOGLOBIN (test code = HGB) 9.2 G/DL 12.0-16.0 L HEMATOCRIT (test code = HCT) 29.8 % 37-47 L MEAN CELL VOLUME (test code = MCV) 91.7 FL 81-99 N MEAN CELL HGB (test code = MCH) 28.3 PG 27-31 N MEAN CELL HGB CONCENTRATION (test code = MCHC) 30.9 G/DL 33-37 L RED CELL DISTRIBUTION WIDTH (test code = RDW) 14.2 % 11.5-14.5 N PLATELET COUNT (test code = PLT) 354 x10 3/uL 150-450 N MEAN PLATELET VOLUME (test c ode = MPV) 9.5 FL 7.4-10.4 N NEUTROPHIL % (test code = NT%) 64.7 % 42-86 N IMMATURE GRANULOCYTE % (test code = IG%) 3.0 % 0.0-2.0 H LYMPHOCYTE % (test code = LY%) 19.8 % 24-44 L MONOCYTE % (test code = MO%) 10.0 % 0.0-4.0 H EOSINOPHIL % (test code = EO%) 2.0 % 0.0-2.7 N BASOPHIL % (test code = BA%) 0.5 % 0.0-0.5 N NUCLEATED RBC % (test code = NRBC%) 0.0 % 0.0-0.0 N NEUTROPHIL # (test code = NT#) 4.79 x10 3/uL 1.8-7.7 N IMMATURE GRANULOCYTE # (test code = IG#) 0.22 x10 3/uL 0.00-0.03 H LYMPHOCYTE # (test code = LY#) 1.47 x10 3/uL 1.0-4.8 N MONOCYTE # (test code = MO#) 0.74 x10 3/uL 0.0-0.8 N EOSINOPHIL # (test code = EO#) 0.15 x10 3/uL 0.0-0.5 N BASOPHIL # (test code = BA#) 0.04 x10 3/uL 0.0-0.2 N NUCLEATED RBC # (test code = NRBC#) 0.0 X10 3/uL 0.0-0.2 N [id number] 20:51:00* Test Item Value Reference Range Interpretation Comme nts GLUBED (test code = GLUBED) 119 MG/DL 65-99 H Performed by cer tified control operator flow coat at [facility] [id number] 16:32:00* Test Item Value Reference Range Interpretation Comme nts GLUBED (test code = GLUBED) 104 MG/DL 65-99 H Performed by cer tified control operator flow coat at [facility] [id number] 11:30:00* Test Item Value Reference Range Interpretation Comme nts GLUBED (test code = GLUBED) 151 MG/DL 65-99 H Performed by cer tified control operator flow coat at [facility] [id number] 06:43:00* Test Item Value Reference Range Interpretation Comme nts GLUBED (test code = GLUBED) 115 MG/DL 65-99 H Performed by cer tified control operator flow coat at [facility] COMPREHENSIVE METABOLIC [id number] 05:20:00* Test Item Value Reference Range Interpretation Comme nts SODIUM (test code = NA) 142 MMOL/L 133-145 N POTASSIUM (test code = K) 4.3 MMOL/L 3.6-5.2 N CHLORIDE (test code = CL) 106 MMOL/L 100-108 N CARBON DIOXIDE (test code = CO2) 28 MMOL/L 22-32 N GLUCOSE (test code = GLU) 108 MG/DL 65-99 H Results of this assay method may be falsely depressed orelevated if patient is taking sulfasalazine. BLOOD UREA NITROGEN (test code = BUN) 32 MG/DL 6-20 H GLOMERULAR FILTRATION RATE (test code = GFR) 43 39-90 N Reporting units: mL/min/1.73m\\S\\2 (Modified MDRD Formula) CREATININE (test code = CREAT) 1.21 MG/DL 0.60-1.00 H TOTAL PROTEIN (test code = PROT) 6.2 G/DL 6.4-8.2 L ALBUMIN (test code = ALB) 2.5 G/DL 3.4-5.0 L GLOBULIN (test code = GLOB) 3.7 G/DL 1.5-3.8 N ALBUMIN/GLOBULIN RATIO (test code = A/G) 0.7 1.1-2.2 L CALCIUM (test code = CA) 8.7 MG/DL 8.7-10.5 N BILIRUBIN TOTAL (test code = BILT) 0.2 MG/DL 0.0-1.0 N SGOT/AST (test code = AST) 13 Units/L 15-37 L Results of this assay method may be falsely depressed orelevated if patient is taking sulfasalazine. SGPT/ALT (test code = ALT) 12 Units/L 30-65 L Results of this assay method may be falsely depressed orelevated if patient is taking sulfasalazine. ALKALINE PHOSPHATASE TOTAL (test code = ALKP) 91 Units/L 50-136 N [id number] 05:20:00* Test Item Value Reference Range Interpretation Comme nts MAGNESIUM (test code = MAG) 2.2 MG/DL 1.8-2.4 N CBC W/AUTO [id number] 05:04:00* Test Item Value Reference Range Interpretation Comme nts WHITE BLOOD CELL (test code = WBC) 12.49 x10 3/uL 4.80-10.80 H RED BLOOD CELL (test code = RBC) 3.47 x10 6/uL 4.2-5.4 L HEMOGLOBIN (test code = HGB) 10.3 G/DL 12.0-16.0 L HEMATOCRIT (test code = HCT) 32.2 % 37-47 L MEAN CELL VOLUME (test code = MCV) 92.8 FL 81-99 N MEAN CELL HGB (test code = MCH) 29.7 PG 27-31 N MEAN CELL HGB CONCENTRATION (test code = MCHC) 32.0 G/DL 33-37 L RED CELL DISTRIBUTION WIDTH (test code = RDW) 14.2 % 11.5-14.5 N PLATELET COUNT (test code = PLT) 379 x10 3/uL 150-450 N MEAN PLATELET VOLUME (test code = MPV) 9.3 FL 7.4-10.4 N NEUTROPHIL % (test code = NT%) 82.1 % 42-86 N IMMATURE GRANULOCYTE % (test code = IG%) 1.5 % 0.0-2.0 N LYMPHOCYTE % (test code = LY%) 8.3 % 24-44 L MONOCYTE % (test code = MO%) 7.8 % 0.0-4.0 H EOSINOPHIL % (test code = EO%) 0.1 % 0.0-2.7 N BASOPHIL % (test code = BA%) 0.2 % 0.0-0.5 N NUCLEATED RBC % (test code = NRBC%) 0.0 % 0.0-0.0 N NEUTROPHIL # (test code = NT#) 10.25 x10 3/uL 1.8-7.7 H IMMATURE GRANULOCYTE # (test code = IG#) 0.19 x10 3/uL 0.00-0.03 H LYMPHOCYTE # (test code = LY#) 1.04 x10 3/uL 1.0-4.8 N MONOCYTE # (test code = MO#) 0.97 x10 3/uL 0.0-0.8 H EOSINOPHIL # (test code = EO#) 0.01 x10 3/uL 0.0-0.5 N BASOPHIL # (test code = BA#) 0.03 x10 3/uL 0.0-0.2 N NUCLEATED RBC # (test code = NRBC#) 0.0 X10 3/uL 0.0-0.2 N [id number] 21:39:00* Test Item Value Reference Range Interpretation Comme nts GLUBED (test code = GLUBED) 138 MG/DL 65-99 H Performed by cer tified control operator flow coat at [facility] [id number] 15:20:00* Test Item Value Reference Range Interpretation Comme nts GLUBED (test code = GLUBED) 127 MG/DL 65-99 H Performed by cer tified control operator flow coat at [facility] [id number] 11:16:00* Test Item Value Reference Range Interpretation Comme nts GLUBED (test code = GLUBED) 124 MG/DL 65-99 H Performed by cer tified control operator flow coat at [facility] [id number] 06:33:00* Test Item Value Reference Range Interpretation Comme nts GLUBED (test code = GLUBED) 150 MG/DL 65-99 H Performed by cer tified control operator flow coat at [facility] BASIC METABOLIC [id number] 03:45:00* Test Item Value Reference Range Interpretation Comme nts SODIUM (test code = NA) 139 MMOL/L 133-145 10/14/18 POTASSIUM (test code = K) 4.3 MMOL/L 3.6-5.2 N CHLORIDE (test code = CL) 104 MMOL/L 100-108 N CARBON DIOXIDE (test code = CO2) 27 MMOL/L 22-32 N GLUCOSE (test code = GLU) 179 MG/DL 65-99 H Results of this assay method may be falsely depressed orelevated if patient is taking sulfasalazine. BLOOD UREA NITROGEN (test code = BUN) 21 MG/DL 6-20 H GLOMERULAR FILTRATION RATE (test code = GFR) 50 39-90 N Reporting units: mL/min/1.73m\\S\\2 (Modified MDRD Formula) CREATININE (test code = CREAT) 1.07 MG/DL 0.60-1.00 H CALCIUM (test code = CA) 9.1 MG/DL 8.7-10.5 N CBC W/O [id number] 03:38:00* Test Item Value Reference Range Interpretation Comme nts WHITE BLOOD CELL (test code = WBC) 10.28 x10 3/uL 4.80-10.80 N RED BLOOD CELL (test code = RBC) 3.61 x10 6/uL 4.2-5.4 L HEMOGLOBIN (test code = HGB) 10.6 G/DL 12.0-16.0 L HEMATOCRIT (test code = HCT) 33.3 % 37-47 L MEAN CELL VOLUME (test code = MCV) 92.2 FL 81-99 N MEAN CELL HGB (test code = MCH) 29.4 PG 27-31 N MEAN CELL HGB CONCENTRATION (test code = MCHC) 31.8 G/DL 33-37 L RED CELL DISTRIBUTION WIDTH (test code = RDW) 13.8 % 11.5-14.5 N PLATELET COUNT (test code = PLT) 361 x10 3/uL 150-450 N MEAN PLATELET VOLUME (test code = MPV) 9.3 FL 7.4-10.4 N [id number] 21:54:00* Test Item Value Reference Range Interpretation Comme nts GLUBED (test code = GLUBED) 101 MG/DL 65-99 H Performed by cer tified control operator flow coat at [facility] [id number] 17:35:00* Test Item Value Reference Range Interpretation Comme nts GLUBED (test code = GLUBED) 107 MG/DL 65-99 H Performed by cer tified control operator flow coat at [facility] [id number] 11:36:00* Test Item Value Reference Range Interpretation Comme nts GLUBED (test code = GLUBED) 92 MG/DL 65-99 N Performed by cer tified control operator flow coat at [facility] [id number] 06:11:00* Test Item Value Reference Range Interpretation Comme nts GLUBED (test code = GLUBED) 93 MG/DL 65-99 N Performed by cer tified control operator flow coat at [facility] BASIC METABOLIC [id number] 05:10:00* Test Item Value Reference Range Interpretation Comme nts SODIUM (test code = NA) 143 MMOL/L 133-145 N POTASSIUM (test code = K) 4.0 MMOL/L 3.6-5.2 N CHLORIDE (test code = CL) 106 MMOL/L 100-108 N CARBON DIOXIDE (test code = CO2) 27 MMOL/L 22-32 N GLUCOSE (test code = GLU) 102 MG/DL 65-99 H Results of this assay method may be falsely depressed orelevated if patient is taking sulfasalazine. BLOOD UREA NITROGEN (test code = BUN) 24 MG/DL 6-20 H GLOMERULAR FILTRATION RATE (test code = GFR) 53 39-90 N Reporting units: mL/min/1.73m\\S\\2 (Modified MDRD Formula) CREATININE (test code = CREAT) 1.01 MG/DL 0.60-1.00 H CALCIUM (test code = CA) 9.0 MG/DL 8.7-10.5 N CBC W/O [id number] 03:55:00* Test Item Value Reference Range Interpretation Comme nts WHITE BLOOD CELL (test code = WBC) 7.25 x10 3/uL 4.80-10.80 N RED BLOOD CELL (test code = RBC) 3.48 x10 6/uL 4.2-5.4 L HEMOGLOBIN (test code = HGB) 10.2 G/DL 12.0-16.0 L HEMATOCRIT (test code = HCT) 32.3 % 37-47 L MEAN CELL VOLUME (test code = MCV) 92.8 FL 81-99 N MEAN CELL HGB (test code = MCH) 29.3 PG 27-31 N MEAN CELL HGB CONCENTRATION (test code = MCHC) 31.6 G/DL 33-37 L RED CELL DISTRIBUTION WIDTH (test code = RDW) 14.1 % 11.5-14.5 N PLATELET COUNT (test code = PLT) 346 x10 3/uL 150-450 N MEAN PLATELET VOLUME (test c ode = MPV) 9.7 FL 7.4-10.4 N [id number] 20:53:00* Test Item Value Reference Range Interpretation Comme nts GLUBED (test code = GLUBED) 122 MG/DL 65-99 H Performed by cer tified control operator flow coat at [facility] [id number] 17:20:00* Test Item Value Reference Range Interpretation Comme nts GLUBED (test code = GLUBED) 117 MG/DL 65-99 H Performed by cer tified control operator flow coat at [facility] [id number] 11:19:00* Test Item Value Reference Range Interpretation Comme nts GLUBED (test code = GLUBED) 97 MG/DL 65-99 N Performed by cer tified control operator flow coat at [facility] [id number] 06:30:00* Test Item Value Reference Range Interpretation Comme nts GLUBED (test code = GLUBED) 101 MG/DL 65-99 H Performed by cer tified control operator flow coat at [facility] BASIC METABOLIC [id number] 04:12:00* Test Item Value Reference Range Interpretation Comme nts SODIUM (test code = NA) 142 MMOL/L 133-145 N POTASSIUM (test code = K) 4.0 MMOL/L 3.6-5.2 N CHLORIDE (test code = CL) 104 MMOL/L 100-108 N CARBON DIOXIDE (test code = CO2) 29 MMOL/L 22-32 N GLUCOSE (test code = GLU) 100 MG/DL 65-99 H Results of this assay method may be falsely depressed orelevated if patient is taking sulfasalazine. BLOOD UREA NITROGEN (test code = BUN) 22 MG/DL 6-20 H GLOMERULAR FILTRATION RATE (test code = GFR) 45 39-90 N Reporting units: mL/min/1.73m\\S\\2 (Modified MDRD Formula) CREATININE (test code = CREAT) 1.16 MG/DL 0.60-1.00 H CALCIUM (test code = CA) 9.0 MG/DL 8.7-10.5 N CBC W/O [id number] 03:26:00* Test Item Value Reference Range Interpretation Comme nts WHITE BLOOD CELL (test code = WBC) 7.35 x10 3/uL 4.80-10.80 N RED BLOOD CELL (test code = RBC) 3.26 x10 6/uL 4.2-5.4 L HEMOGLOBIN (test code = HGB) 9.5 G/DL 12.0-16.0 L HEMATOCRIT (test code = HCT) 30.1 % 37-47 L MEAN CELL VOLUME (test code = MCV) 92.3 FL 81-99 N MEAN CELL HGB (test code = MCH) 29.1 PG 27-31 N MEAN CELL HGB CONCENTRATION (test code = MCHC) 31.6 G/DL 33-37 L RED CELL DISTRIBUTION WIDTH (test code = RDW) 14.2 % 11.5-14.5 N PLATELET COUNT (test code = PLT) 339 x10 3/uL 150-450 N MEAN PLATELET VOLUME (test c ode = MPV) 9.5 FL 7.4-10.4 N [id number] 21:42:00* Test Item Value Reference Range Interpretation Comme nts GLUBED (test code = GLUBED) 113 MG/DL 65-99 H Performed by cer tified control operator flow coat at [facility] [id number] 16:49:00* Test Item Value Reference Range Interpretation Comme nts GLUBED (test code = GLUBED) 113 MG/DL 65-99 H Performed by cer tified control operator flow coat at [facility] VANCOMYCIN [id number] 13:47:00* Test Item Value Reference Range Interpretation Comme nts VANCOMYCIN TROUGH (test code = VANCT) 11.8 MCG/ML 10.0-20.0 N The accepted therapeutic level for Methicillin-Resistant Staph Aureus (MRSA) is 15-20 mcg/mL. [id number] 11:23:00* Test Item Value Reference Range Interpretation Comme nts GLUBED (test code = GLUBED) 146 MG/DL 65-99 H Performed by cer tified control operator flow coat at [facility] [id number] 06:01:00* Test Item Value Reference Range Interpretation Comme nts GLUBED (test code = GLUBED) 95 MG/DL 65-99 N Performed by cer tified control operator flow coat at [facility] COMPREHENSIVE METABOLIC [id number] 04:28:00* Test Item Value Reference Range Interpretation Comme nts SODIUM (test code = NA) 140 MMOL/L 133-145 N POTASSIUM (test code = K) 4.0 MMOL/L 3.6-5.2 N CHLORIDE (test code = CL) 104 MMOL/L 100-108 N CARBON DIOXIDE (test code = CO2) 27 MMOL/L 22-32 N GLUCOSE (test code = GLU) 110 MG/DL 65-99 H Results of this assay method may be falsely depressed orelevated if patient is taking sulfasalazine. BLOOD UREA NITROGEN (test code = BUN) 29 MG/DL 6-20 H GLOMERULAR FILTRATION RATE (test code = GFR) 40 39-90 N Reporting units: mL/min/1.73m\\S\\2 (Modified MDRD Formula) CREATININE (test code = CREAT) 1.30 MG/DL 0.60-1.00 H TOTAL PROTEIN (test code = PROT) 5.9 G/DL 6.4-8.2 L ALBUMIN (test code = ALB) 2.2 G/DL 3.4-5.0 L GLOBULIN (test code = GLOB) 3.7 G/DL 1.5-3.8 N ALBUMIN/GLOBULIN RATIO (test code = A/G) 0.6 1.1-2.2 L CALCIUM (test code = CA) 8.7 MG/DL 8.7-10.5 N BILIRUBIN TOTAL (test code = BILT) 0.3 MG/DL 0.0-1.0 N SGOT/AST (test code = AST) 11 Units/L 15-37 L Results of this assay method may be falsely depressed orelevated if patient is taking sulfasalazine. SGPT/ALT (test code = ALT) 12 Units/L 30-65 L Results of this assay method may be falsely depressed orelevated if patient is taking sulfasalazine. ALKALINE PHOSPHATASE TOTAL (test code = ALKP) 87 Units/L 50-136 N [id number] 04:28:00* Test Item Value Reference Range Interpretation Comme nts PHOSPHOROUS (test code = PHOS) 3.2 MG/DL 2.5-4.9 N [id number] 04:28:00* Test Item Value Reference Range Interpretation Comme nts MAGNESIUM (test code = MAG) 2.0 MG/DL 1.8-2.4 N CBC W/O [id number] 03:43:00* Test Item Value Reference Range Interpretation Comme nts WHITE BLOOD CELL (test code = WBC) 7.88 x10 3/uL 4.80-10.80 N RED BLOOD CELL (test code = RBC) 3.34 x10 6/uL 4.2-5.4 L HEMOGLOBIN (test code = HGB) 9.7 G/DL 12.0-16.0 L HEMATOCRIT (test code = HCT) 30.9 % 37-47 L MEAN CELL VOLUME (test code = MCV) 92.5 FL 81-99 N MEAN CELL HGB (test code = MCH) 29.0 PG 27-31 N MEAN CELL HGB CONCENTRATION (test code = MCHC) 31.4 G/DL 33-37 L RED CELL DISTRIBUTION WIDTH (test code = RDW) 13.8 % 11.5-14.5 N PLATELET COUNT (test code = PLT) 312 x10 3/uL 150-450 N MEAN PLATELET VOLUME (test c ode = MPV) 9.9 FL 7.4-10.4 N [id number] 22:14:00* Test Item Value Reference Range Interpretation Comme nts GLUBED (test code = GLUBED) 110 MG/DL 65-99 H Performed by cer tified control operator flow coat at [facility] [id number] 16:36:00* Test Item Value Reference Range Interpretation Comme nts GLUBED (test code = GLUBED) 135 MG/DL 65-99 H Performed by cer tified control operator flow coat at [facility] [id number] 11:50:00* Test Item Value Reference Range Interpretation Comme nts GLUBED (test code = GLUBED) 110 MG/DL 65-99 H Performed by cer tified control operator flow coat at [facility] [id number] 10:30:00* Test Item Value Reference Range Interpretation Comme nts TROPONIN-I (test code = TROPI) < 0.04 NG/ML 0.00-0.06 N - The use of ser ial sampling and testing protocol is a recommended practice.- An elevated troponin level alone is often not sufficient for diagnosis of myocardial infarction.Results of this assay method may be falsely depressed orelevated if patient is taking high doses of Biotin. [id number] 09:51:00* Test Item Value Reference Range Interpretation Comme nts GLUBED (test code = GLUBED) 100 MG/DL 65-99 H Performed by cer tified control operator flow coat at [facility] - XR SHOULDER 1 V [id number] 08:53:00Patient Name: GABBIE CASTANEDA Unit No: [id number] EXAMS: CPT CODE: [id number] XR SHOULDER 1 [place] LT [id number] Reason: arm pain, - XR SHOULDER 1 V LT 10/10/2018 8:37 AM Indication: Arm pain FINDINGS: On this one AP view only, I see no visible abnormality. at 0853 Reported and signed by: Piotr Amin MD CC: Sadiq Bates DO; Chele Bass Technologist: Tian SCOTT Trscrpt Dt/ (0853)KellenPKCatalina Orig Print D/T: S: 10/10/2018 (0856) [facility] NAME: GABBIE CASTANEDA [address] PH[address]: [address] [place] [id number] : 1940 AGE: 78 SEX: F LOC: D.[id number] 1 PHONE #:[phone] EXAM DATE: 10/10/2018 STATUS: ADM IN FAX #: RAD NO: DC Dt: PAGE 1 Signed Report- XR SHOULDER 1 V [id number] 08:53:00Patient Name: GABBIE CASTANEDA Unit No: [id number] EXAMS: CPT CODE: [id number] XR SHOULDER 1 [place] [id number] Reason: arm pain, - XR SHOULDER 1 V LT 10/10/2018 8:37 AM Indication: Arm pain FINDINGS: On this one AP view only, I see no visible abnormality. Electronically Signed by Piotr Amin MD on at 0853 Reported and signed by: Piotr Amin MD CC: Sadiq Bass Technologist: Tian Don RT Trscrpt Dt/ (0853)Lois Orig Print D/T: S: 10/10/2018 (0856) [facility] NAME: GABBIE CASTANEDA [address]: [address] [place] [id number] : 1940 AGE: 78 SEX: F LOC: D.[id number] 1 PHONE #: [phone] EXAM DATE: 10/10/2018 STATUS: DIS IN FAX #: RAD NO: DC Dt: 10/21/2018 PAGE 1 Signed ReportBASI METABOLIC [id number] 05:00:00* Test Item Value Reference Range Interpretation Comme nts SODIUM (test code = NA) 139 MMOL/L 133-145 N POTASSIUM (test code = K) 4.2 MMOL/L 3.6-5.2 N CHLORIDE (test code = CL) 103 MMOL/L 100-108 N CARBON DIOXIDE (test code = CO2) 30 MMOL/L 22-32 N GLUCOSE (test code = GLU) 99 MG/DL 65-99 N Results of this assay method may be falsely depressed orelevated if patient is taking sulfasalazine. BLOOD UREA NITROGEN (test code = BUN) 25 MG/DL 6-20 H GLOMERULAR FILTRATION RATE (test code = GFR) 44 39-90 N Reporting units: mL/min/1.73m\\S\\2 (Modified MDRD Formula) CREATININE (test code = CREAT) 1.19 MG/DL 0.60-1.00 H CALCIUM (test code = CA) 8.5 MG/DL 8.7-10.5 L BASIC METABOLIC [id number] 04:29:00* Test Item Value Reference Range Interpretation Comme nts SODIUM (test code = NA) MMOL/L 133-145 POTASSIUM (test code = K) MMOL/L 3.6-5.2 N CHLORIDE (test code = CL) 103 MMOL/L 100-108 N CARBON DIOXIDE (test code = CO2) 30 MMOL/L 22-32 N GLUCOSE (test code = GLU) 99 MG/DL 65-99 N Results of this assay method may be falsely depressed orelevated if patient is taking sulfasalazine. BLOOD UREA NITROGEN (test code = BUN) 25 MG/DL 6-20 H GLOMERULAR FILTRATION RATE (test code = GFR) 44 39-90 N Reporting units: mL/min/1.73m\\S\\2 (Modified MDRD Formula) CREATININE (test code = CREAT) 1.19 MG/DL 0.60-1.00 H CALCIUM (test code = CA) 8.5 MG/DL 8.7-10.5 L CBC W/AUTO [id number] 03:53:00* Test Item Value Reference Range Interpretation Comme nts WHITE BLOOD CELL (test code = WBC) 9.21 x10 3/uL 4.80-10.80 N RED BLOOD CELL (test code = RBC) 3.15 x10 6/uL 4.2-5.4 L HEMOGLOBIN (test code = HGB) 9.3 G/DL 12.0-16.0 L HEMATOCRIT (test code = HCT) 29.2 % 37-47 L MEAN CELL VOLUME (test code = MCV) 92.7 FL 81-99 N MEAN CELL HGB (test code = MCH) 29.5 PG 27-31 N MEAN CELL HGB CONCENTRATION (test code = MCHC) 31.8 G/DL 33-37 L RED CELL DISTRIBUTION WIDTH (test code = RDW) 14.0 % 11.5-14.5 N PLATELET COUNT (test code = PLT) 294 x10 3/uL 150-450 N MEAN PLATELET VOLUME (test c ode = MPV) 10.0 FL 7.4-10.4 N NEUTROPHIL % (test code = NT%) 70.6 % 42-86 N IMMATURE GRANULOCYTE % (test code = IG%) 0.5 % 0.0-2.0 N LYMPHOCYTE % (test code = LY%) 12.5 % 24-44 L MONOCYTE % (test code = MO%) 12.7 % 0.0-4.0 H EOSINOPHIL % (test code = EO%) 3.3 % 0.0-2.7 H BASOPHIL % (test code = BA%) 0.4 % 0.0-0.5 N NUCLEATED RBC % (test code = NRBC%) 0.0 % 0.0-0.0 N NEUTROPHIL # (test code = NT#) 6.50 x10 3/uL 1.8-7.7 N IMMATURE GRANULOCYTE # (test code = IG#) 0.05 x10 3/uL 0.00-0.03 H LYMPHOCYTE # (test code = LY#) 1.15 x10 3/uL 1.0-4.8 N MONOCYTE # (test code = MO#) 1.17 x10 3/uL 0.0-0.8 H EOSINOPHIL # (test code = EO#) 0.30 x10 3/uL 0.0-0.5 N BASOPHIL # (test code = BA#) 0.04 x10 3/uL 0.0-0.2 N NUCLEATED RBC # (test code = NRBC#) 0.0 X10 3/uL 0.0-0.2 N [id number] 21:55:00* Test Item Value Reference Range Interpretation Comme nts GLUBED (test code = GLUBED) 109 MG/DL 65-99 H Performed by cer tified control operator flow coat at [facility] [id number] 20:16:00* Test Item Value Reference Range Interpretation Comme nts GLUBED (test code = GLUBED) 117 MG/DL 65-99 H Performed by cer tified control operator flow coat at [facility] - CT LOWER EXTRM W/O C [id number] 16:17:00Patient Name: GABBIE CASTANEDA Unit No: [id number] EXAMS: CPT CODE: [id number] [place] LOWER EXTRM W/[place] [id number] Reason: CELLULITIS/HX HEMATOMA - CT LOWER EXTRM W/O C RT 10/09/2018 1:10 PM Indication: Cellulitis COMPARISON: 09/25/2018 CT FINDINGS: Noncontrast scanning with again present dense artifact from knee replacement, shows quite marked resolution of the right medial calf large hematoma. A woundVAC overlies. The underlying bones remain unremarkable. I see no radiopaque foreign body soft tissue gas bubbles. Impression: Quite marked reduction in right lower leg hematoma. at 1617 Reported and signed by: Piotr Amin MD CC: Sadiq Bates DO; Chele Bass Technologist: Mario Leggett CT; Nadir Glaser CT Trscrpt Dt/ (1617)inga NUNEZE Orig Print D/T: S: 10/09/2018 (1621) CTDI: DLP: [facility] NAME: GABBIE CASTANEDA [id number] PHYS: [id number] - Sadiq Bates [place] [address] : 1940 AGE: 78 SEX: F LOC: [id number] 1 PHONE #: [phone] EXAM DATE: 10/09/2018 STATUS: ADM IN FAX #: RAD NO: DC Dt: PAGE 1 Signed Report- CT LOWER EXTRM W/O C [id number] 16:17:00 Patient Name: GABBIE CASTANEDA Unit No: [id number] EXAMS: CPT CODE: [id number] CT LOWER EXTRM W/O MATERIAL ASSISTANT [id number] Reason: CELLULITIS/HX HEMATOMA - CT LOWER EXTRM W/O C RT 10/09/2018 1:10 PM Indication: Cellulitis COMPARISON: 09/25/2018 CT FINDINGS: Noncontrast scanning with again present dense artifact from knee replacement, shows quite marked resolution of the right medial calf large hematoma. A wound VAC overlies. The underlying bones remain unremarkable. I see no radiopaque foreign body soft tissue gas bubbles. Impression: Quite marked reduction in right lower leg hematoma. at 1617 Reported and signed by: Piotr Amin MD CC: Sadiq castro DO; Chele Bass Technologist: Mario Leggett CT; Nadir Glaser CT Trscrpt Dt/ [email or web address].[email or web address] Orig Print D/T: S: 10/09/2018 ([id number]) CTDI: DLP: [facility] NAME: CASTANEDAGABBIE [id number] SP[address] PHYS: PERSH.02 - [place] [address] : 1940 AGE: 78 SEX: F LOC: [id number].[id number] 1 PHONE #: [phone] EXAM DATE: 10/09/2018 STATUS: DIS IN FAX #: RAD NO: DC Dt: 10/21/2018 PAGE 1 Signed [id number] 12:26:00* Test Item Value Reference Range Interpretation Comme nts GLUBED (test code = GLUBED) 112 MG/DL 65-99 H Performed by [facility] [employer] control operator flow coat at [facility] [id number] 06:39:00* Test Item Value Reference Range Interpretation Comme nts GLUBED (test code = GLUBED) 83 MG/DL 65-99 N Performed by [facility] [employer] control operator flow coat at [facility] GLYCOSYLATED HEMOGLOBIN (HA1C)2018-10-09 03:59:00* Test Item Value Reference Range Interpretation Comme nts GLYCOSYLATED HEMOGLOBIN (HA1 C) (test code = GLYHGB) 5.9 % TOT HB 4.5-6.2 N BASIC METABOLIC [id number] 03:57:00* Test Item Value Reference Range Interpretation Comme nts SODIUM (test code = NA) 142 MMOL/L 133-145 N POTASSIUM (test code = K) 4.0 MMOL/L 3.6-5.2 N CHLORIDE (test code = CL) 105 MMOL/L 100-108 N CARBON DIOXIDE (test code = CO2) 30 MMOL/L 22-32 N GLUCOSE (test code = GLU) 98 MG/DL 65-99 N Results of this assay method may be falsely depressed orelevated if patient is taking sulfasalazine. BLOOD UREA NITROGEN (test code = BUN) 30 MG/DL 6-20 H GLOMERULAR FILTRATION RATE (test code = GFR) 42 39-90 N Reporting units: mL/min/1.73m\\S\\2 (Modified MDRD Formula) CREATININE (test code = CREAT) 1.24 MG/DL 0.60-1.00 H CALCIUM (test code = CA) 8.4 MG/DL 8.7-10.5 L CBC W/AUTO [id number] 03:42:00* Test Item Value Reference Range Interpretation Comme nts WHITE BLOOD CELL (test code = WBC) 9.40 x10 3/uL 4.80-10.80 N RED BLOOD CELL (test code = RBC) 3.19 x10 6/uL 4.2-5.4 L HEMOGLOBIN (test code = HGB) 9.1 G/DL 12.0-16.0 L HEMATOCRIT (test code = HCT) 29.6 % 37-47 L MEAN CELL VOLUME (test code = MCV) 92.8 FL 81-99 N MEAN CELL HGB (test code = MCH) 28.5 PG 27-31 N MEAN CELL HGB CONCENTRATION (test code = MCHC) 30.7 G/DL 33-37 L RED CELL DISTRIBUTION WIDTH (test code = RDW) 14.1 % 11.5-14.5 N PLATELET COUNT (test code = PLT) 270 x10 3/uL 150-450 N MEAN PLATELET VOLUME (test c ode = MPV) 10.2 FL 7.4-10.4 N NEUTROPHIL % (test code = NT%) 68.2 % 42-86 N IMMATURE GRANULOCYTE % (test code = IG%) 0.6 % 0.0-2.0 N LYMPHOCYTE % (test code = LY%) 13.5 % 24-44 L MONOCYTE % (test code = MO%) 13.9 % 0.0-4.0 H EOSINOPHIL % (test code = EO%) 3.4 % 0.0-2.7 H BASOPHIL % (test code = BA%) 0.4 % 0.0-0.5 N NUCLEATED RBC % (test code = NRBC%) 0.0 % 0.0-0.0 N NEUTROPHIL # (test code = NT#) 6.40 x10 3/uL 1.8-7.7 N IMMATURE GRANULOCYTE # (test code = IG#) 0.06 x10 3/uL 0.00-0.03 H LYMPHOCYTE # (test code = LY#) 1.27 x10 3/uL 1.0-4.8 N MONOCYTE # (test code = MO#) 1.31 x10 3/uL 0.0-0.8 H EOSINOPHIL # (test code = EO#) 0.32 x10 3/uL 0.0-0.5 N BASOPHIL # (test code = BA#) 0.04 x10 3/uL 0.0-0.2 N NUCLEATED RBC # (test code = NRBC#) 0.0 X10 3/uL 0.0-0.2 N [id number] 21:22:00* Test Item Value Reference Range Interpretation Comme nts GLUBED (test code = GLUBED) 105 MG/DL 65-99 H Performed by cer tified control operator flow coat at [facility] [id number] 17:07:00* Test Item Value Reference Range Interpretation Comme nts GLUBED (test code = GLUBED) 112 MG/DL 65-99 H Performed by cer tified control operator flow coat at [facility] [id number] 11:09:00* Test Item Value Reference Range Interpretation Comme nts GLUBED (test code = GLUBED) 132 MG/DL 65-99 H Performed by cer tified control operator flow coat at [facility] [id number] 06:27:00* Test Item Value Reference Range Interpretation Comme nts GLUBED (test code = GLUBED) 112 MG/DL 65-99 H Performed by cer tified control operator flow coat at [facility] CBC W/AUTO [id number] 05:45:00* Test Item Value Reference Range Interpretation Comme nts WHITE BLOOD CELL (test code = WBC) 12.04 x10 3/uL 4.80-10.80 H RED BLOOD CELL (test code = RBC) 3.55 x10 6/uL 4.2-5.4 L HEMOGLOBIN (test code = HGB) 10.6 G/DL 12.0-16.0 L HEMATOCRIT (test code = HCT) 32.9 % 37-47 L MEAN CELL VOLUME (test code = MCV) 92.7 FL 81-99 N MEAN CELL HGB (test code = MCH) 29.9 PG 27-31 N MEAN CELL HGB CONCENTRATION (test code = MCHC) 32.2 G/DL 33-37 L RED CELL DISTRIBUTION WIDTH (test code = RDW) 14.3 % 11.5-14.5 N PLATELET COUNT (test code = PLT) 286 x10 3/uL 150-450 N MEAN PLATELET VOLUME (test code = MPV) 10.0 FL 7.4-10.4 N NEUTROPHIL % (test code = NT%) 75.3 % 42-86 N IMMATURE GRANULOCYTE % (test code = IG%) 0.7 % 0.0-2.0 N LYMPHOCYTE % (test code = LY%) 9.2 % 24-44 L MONOCYTE % (test code = MO%) 12.2 % 0.0-4.0 H EOSINOPHIL % (test code = EO%) 2.2 % 0.0-2.7 N BASOPHIL % (test code = BA%) 0.4 % 0.0-0.5 N NUCLEATED RBC % (test code = NRBC%) 0.0 % 0.0-0.0 N NEUTROPHIL # (test code = NT#) 9.06 x10 3/uL 1.8-7.7 H IMMATURE GRANULOCYTE # (test code = IG#) 0.09 x10 3/uL 0.00-0.03 H LYMPHOCYTE # (test code = LY#) 1.11 x10 3/uL 1.0-4.8 N MONOCYTE # (test code = MO#) 1.47 x10 3/uL 0.0-0.8 H EOSINOPHIL # (test code = EO#) 0.26 x10 3/uL 0.0-0.5 N BASOPHIL # (test code = BA#) 0.05 x10 3/uL 0.0-0.2 N NUCLEATED RBC # (test code = NRBC#) 0.0 X10 3/uL 0.0-0.2 N BASIC METABOLIC [id number] 04:36:00* Test Item Value Reference Range Interpretation Comme nts SODIUM (test code = NA) 140 MMOL/L 133-145 N POTASSIUM (test code = K) 4.0 MMOL/L 3.6-5.2 N CHLORIDE (test code = CL) 102 MMOL/L 100-108 N CARBON DIOXIDE (test code = CO2) 29 MMOL/L 22-32 N GLUCOSE (test code = GLU) 102 MG/DL 65-99 H Results of this assay method may be falsely depressed orelevated if patient is taking sulfasalazine. BLOOD UREA NITROGEN (test code = BUN) 26 MG/DL 6-20 H GLOMERULAR FILTRATION RATE (test code = GFR) 60 39-90 N Reporting units: mL/min/1.73m\\S\\2 (Modified MDRD Formula) CREATININE (test code = CREAT) 0.91 MG/DL 0.60-1.00 N CALCIUM (test code = CA) 8.9 MG/DL 8.7-10.5 N [id number] 22:03:00* Test Item Value Reference Range Interpretation Comme nts GLUBED (test code = GLUBED) 90 MG/DL 65-99 N Performed by cer laurent control operator flow coat at [facility] BASIC METABOLIC [id number] 20:09:00* Test Item Value Reference Range Interpretation Comme nts SODIUM (test code = NA) 138 MMOL/L 133-145 N POTASSIUM (test code = K) 4.1 MMOL/L 3.6-5.2 N CHLORIDE (test code = CL) 99 MMOL/L 100-108 L CARBON DIOXIDE (test code = CO2) 32 MMOL/L 22-32 N GLUCOSE (test code = GLU) 150 MG/DL 65-99 H Results of this assay method may be falsely depressed orelevated if patient is taking sulfasalazine. BLOOD UREA NITROGEN (test code = BUN) 33 MG/DL 6-20 H GLOMERULAR FILTRATION RATE (test code = GFR) 40 39-90 N Reporting units: mL/min/1.73m\\S\\2 (Modified MDRD Formula) CREATININE (test code = CREAT) 1.29 MG/DL 0.60-1.00 H CALCIUM (test code = CA) 8.6 MG/DL 8.7-10.5 L PREVIOUS HEMOLYZED. RECOLLECTCBC W/AUTO [id number] 19:56:00* Test Item Value Reference Range Interpretation Comme nts WHITE BLOOD CELL (test code = WBC) 11.73 x10 3/uL 4.80-10.80 H RED BLOOD CELL (test code = RBC) 3.62 x10 6/uL 4.2-5.4 L HEMOGLOBIN (test code = HGB) 10.5 G/DL 12.0-16.0 L HEMATOCRIT (test code = HCT) 33.5 % 37-47 L MEAN CELL VOLUME (test code = MCV) 92.5 FL 81-99 N MEAN CELL HGB (test code = MCH) 29.0 PG 27-31 N MEAN CELL HGB CONCENTRATION (test code = MCHC) 31.3 G/DL 33-37 L RED CELL DISTRIBUTION WIDTH (test code = RDW) 14.2 % 11.5-14.5 N PLATELET COUNT (test code = PLT) 298 x10 3/uL 150-450 N MEAN PLATELET VOLUME (test code = MPV) 10.1 FL 7.4-10.4 N NEUTROPHIL % (test code = NT%) 75.5 % 42-86 N IMMATURE GRANULOCYTE % (test code = IG%) 0.9 % 0.0-2.0 N LYMPHOCYTE % (test code = LY%) 8.7 % 24-44 L MONOCYTE % (test code = MO%) 12.6 % 0.0-4.0 H EOSINOPHIL % (test code = EO%) 1.9 % 0.0-2.7 N BASOPHIL % (test code = BA%) 0.4 % 0.0-0.5 N NUCLEATED RBC % (test code = NRBC%) 0.0 % 0.0-0.0 N NEUTROPHIL # (test code = NT#) 8.85 x10 3/uL 1.8-7.7 H IMMATURE GRANULOCYTE # (test code = IG#) 0.11 x10 3/uL 0.00-0.03 H LYMPHOCYTE # (test code = LY#) 1.02 x10 3/uL 1.0-4.8 N MONOCYTE # (test code = MO#) 1.48 x10 3/uL 0.0-0.8 H EOSINOPHIL # (test code = EO#) 0.22 x10 3/uL 0.0-0.5 N BASOPHIL # (test code = BA#) 0.05 x10 3/uL 0.0-0.2 N NUCLEATED RBC # (test code = NRBC#) 0.0 X10 3/uL 0.0-0.2 N PREVIOUS HEMOLYZED. RECOLLECTPROTHROMBIN [id number] 19:56:00* Test Item Value Reference Range Interpretation Comme nts PROTHROMBIN TIME PATIENT (test code = PTP) 12.8 SECONDS 9.6-12.3 H INTERNATIONAL NORMAL RATIO (test code = INR) 1.13 Recommended INR range (warfarin therapy): 2.0 - 3.0INR (International Normalized Ratio) should beused when interpreting oral anticoaglulant therapy. For atrial fibrillation and treatment orprevention of deep vein thrombosis. Patients with Palmaz-Donte stent *: 2.0 - 3.0 Patients with mechanical heart valve *: 2.5 - 3.5 Patients with flex-stent *: 3.0 - 4.0(*) = vehicle dynamics engineer's suggested range Is patient on anticoagulants? LovenoxHGB [id number] 14:24:00* Test Item Value Reference Range Interpretation Comme nts HEMOGLOBIN (test code = HGB) 10.2 G/DL 12.0-16.0 L HEMATOCRIT (test code = HCT) 32.2 % 37-47 L MEAN CELL HGB CONCENTRATION (test code = MCHC) 31.7 G/DL 33-37 L COMPREHENSIVE METABOLIC [id number] 04:05:00* Test Item Value Reference Range Interpretation Comme nts SODIUM (test code = NA) 141 MMOL/L 133-145 N POTASSIUM (test code = K) 4.4 MMOL/L 3.6-5.2 N CHLORIDE (test code = CL) 109 MMOL/L 100-108 H CARBON DIOXIDE (test code = CO2) 31 MMOL/L 22-32 N GLUCOSE (test code = GLU) 92 MG/DL 65-99 N Results of this assay method may be falsely depressed orelevated if patient is taking sulfasalazine. BLOOD UREA NITROGEN (test code = BUN) 29 MG/DL 6-20 H GLOMERULAR FILTRATION RATE (test code = GFR) 53 39-90 N Reporting units: mL/min/1.73m\\S\\2 (Modified MDRD Formula) CREATININE (test code = CREAT) 1.01 MG/DL 0.60-1.00 H TOTAL PROTEIN (test code = PROT) 5.5 G/DL 6.4-8.2 L ALBUMIN (test code = ALB) 2.3 G/DL 3.4-5.0 L GLOBULIN (test code = GLOB) 3.2 G/DL 1.5-3.8 N ALBUMIN/GLOBULIN RATIO (test code = A/G) 0.7 1.1-2.2 L CALCIUM (test code = CA) 8.6 MG/DL 8.7-10.5 L BILIRUBIN TOTAL (test code = BILT) 0.3 MG/DL 0.0-1.0 N SGOT/AST (test code = AST) 18 Units/L 15-37 N Results of this assay method may be falsely depressed orelevated if patient is taking sulfasalazine. SGPT/ALT (test code = ALT) 12 Units/L 30-65 L Results of this assay method may be falsely depressed orelevated if patient is taking sulfasalazine. ALKALINE PHOSPHATASE TOTAL (test code = ALKP) 84 Units/L 50-136 N [id number] 04:05:00* Test Item Value Reference Range Interpretation Comme nts MAGNESIUM (test code = MAG) 2.1 MG/DL 1.8-2.4 N CBC W/AUTO [id number] 03:37:00* Test Item Value Reference Range Interpretation Comme nts WHITE BLOOD CELL (test code = WBC) 7.29 x10 3/uL 4.80-10.80 N RED BLOOD CELL (test code = RBC) 2.91 x10 6/uL 4.2-5.4 L HEMOGLOBIN (test code = HGB) 8.6 G/DL 12.0-16.0 L HEMATOCRIT (test code = HCT) 27.4 % 37-47 L MEAN CELL VOLUME (test code = MCV) 94.2 FL 81-99 N MEAN CELL HGB (test code = MCH) 29.6 PG 27-31 N MEAN CELL HGB CONCENTRATION (test code = MCHC) 31.4 G/DL 33-37 L RED CELL DISTRIBUTION WIDTH (test code = RDW) 14.6 % 11.5-14.5 H PLATELET COUNT (test code = PLT) 235 x10 3/uL 150-450 N MEAN PLATELET VOLUME (test c ode = MPV) 10.4 FL 7.4-10.4 N NEUTROPHIL % (test code = NT%) 69.8 % 42-86 N IMMATURE GRANULOCYTE % (test code = IG%) 1.0 % 0.0-2.0 N LYMPHOCYTE % (test code = LY%) 15.8 % 24-44 L MONOCYTE % (test code = MO%) 11.8 % 0.0-4.0 H EOSINOPHIL % (test code = EO%) 1.5 % 0.0-2.7 N BASOPHIL % (test code = BA%) 0.1 % 0.0-0.5 N NUCLEATED RBC % (test code = NRBC%) 0.3 % 0.0-0.0 H NEUTROPHIL # (test code = NT#) 5.09 x10 3/uL 1.8-7.7 N IMMATURE GRANULOCYTE # (test code = IG#) 0.07 x10 3/uL 0.00-0.03 H LYMPHOCYTE # (test code = LY#) 1.15 x10 3/uL 1.0-4.8 N MONOCYTE # (test code = MO#) 0.86 x10 3/uL 0.0-0.8 H EOSINOPHIL # (test code = EO#) 0.11 x10 3/uL 0.0-0.5 N BASOPHIL # (test code = BA#) 0.01 x10 3/uL 0.0-0.2 N NUCLEATED RBC # (test code = NRBC#) 0.0 X10 3/uL 0.0-0.2 N COMPREHENSIVE METABOLIC [id number] 06:21:00* Test Item Value Reference Range Interpretation Comme nts SODIUM (test code = NA) 142 MMOL/L 133-145 N POTASSIUM (test code = K) 4.4 MMOL/L 3.6-5.2 N CHLORIDE (test code = CL) 107 MMOL/L 100-108 N CARBON DIOXIDE (test code = CO2) 26 MMOL/L 22-32 N GLUCOSE (test code = GLU) 148 MG/DL 65-99 H Results of this assay method may be falsely depressed orelevated if patient is taking sulfasalazine. BLOOD UREA NITROGEN (test code = BUN) 33 MG/DL 6-20 H GLOMERULAR FILTRATION RATE (test code = GFR) 57 39-90 N Reporting units: mL/min/1.73m\\S\\2 (Modified MDRD Formula) CREATININE (test code = CREAT) 0.95 MG/DL 0.60-1.00 N TOTAL PROTEIN (test code = PROT) 5.9 G/DL 6.4-8.2 L ALBUMIN (test code = ALB) 2.5 G/DL 3.4-5.0 L GLOBULIN (test code = GLOB) 3.4 G/DL 1.5-3.8 N ALBUMIN/GLOBULIN RATIO (test code = A/G) 0.7 1.1-2.2 L CALCIUM (test code = CA) 8.6 MG/DL 8.7-10.5 L BILIRUBIN TOTAL (test code = BILT) 0.2 MG/DL 0.0-1.0 N SGOT/AST (test code = AST) 18 Units/L 15-37 N Results of this assay method may be falsely depressed orelevated if patient is taking sulfasalazine. SGPT/ALT (test code = ALT) 16 Units/L 30-65 L Results of this assay method may be falsely depressed orelevated if patient is taking sulfasalazine. ALKALINE PHOSPHATASE TOTAL (test code = ALKP) 93 Units/L 50-136 N : please add to previous draw please add to previous [id number] 06:21:00* Test Item Value Reference Range Interpretation Comme nts MAGNESIUM (test code = MAG) 2.2 MG/DL 1.8-2.4 N : please add to previous draw please add to previous drawCBC W/AUTO DIFF 2018-09-29 06:20:00* Test Item Value Reference Range Interpretation Comme nts WHITE BLOOD CELL (test code = WBC) 10.58 x10 3/uL 4.80-10.80 N RED BLOOD CELL (test code = RBC) 3.13 x10 6/uL 4.2-5.4 L HEMOGLOBIN (test code = HGB) 9.4 G/DL 12.0-16.0 L HEMATOCRIT (test code = HCT) 28.9 % 37-47 L MEAN CELL VOLUME (test code = MCV) 92.3 FL 81-99 N MEAN CELL HGB (test code = MCH) 30.0 PG 27-31 N MEAN CELL HGB CONCENTRATION (test code = MCHC) 32.5 G/DL 33-37 L RED CELL DISTRIBUTION WIDTH (test code = RDW) 14.7 % 11.5-14.5 H PLATELET COUNT (test code = PLT) 252 x10 3/uL 150-450 N MEAN PLATELET VOLUME (test code = MPV) 10.9 FL 7.4-10.4 H NEUTROPHIL % (test code = NT%) 83.9 % 42-86 N IMMATURE GRANULOCYTE % (test code = IG%) 0.8 % 0.0-2.0 N LYMPHOCYTE % (test code = LY%) 6.5 % 24-44 L MONOCYTE % (test code = MO%) 8.7 % 0.0-4.0 H EOSINOPHIL % (test code = EO%) 0.0 % 0.0-2.7 N BASOPHIL % (test code = BA%) 0.1 % 0.0-0.5 N NUCLEATED RBC % (test code = NRBC%) 0.2 % 0.0-0.0 H NEUTROPHIL # (test code = NT#) 8.88 x10 3/uL 1.8-7.7 H IMMATURE GRANULOCYTE # (test code = IG#) 0.08 x10 3/uL 0.00-0.03 H LYMPHOCYTE # (test code = LY#) 0.69 x10 3/uL 1.0-4.8 L MONOCYTE # (test code = MO#) 0.92 x10 3/uL 0.0-0.8 H EOSINOPHIL # (test code = EO#) 0.00 x10 3/uL 0.0-0.5 N BASOPHIL # (test code = BA#) 0.01 x10 3/uL 0.0-0.2 N NUCLEATED RBC # (test code = NRBC#) 0.0 X10 3/uL 0.0-0.2 N PROTHROMBIN [id number] 09:20:00* Test Item Value Reference Range Interpretation Comme nts PROTHROMBIN TIME PATIENT (test code = PTP) 11.7 SECONDS 9.6-12.3 N INTERNATIONAL NORMAL RATIO (test code = INR) 1.03 Recommended INR range (warfarin therapy): 2.0 - 3.0INR (International Normalized Ratio) should beused when interpreting oral anticoaglulant therapy. For atrial fibrillation and treatment orprevention of deep vein thrombosis. Patients with Palmaz-Donte stent *: 2.0 - 3.0 Patients with mechanical heart valve *: 2.5 - 3.5 Patients with flex-stent *: 3.0 - 4.0(*) = vehicle dynamics engineer's suggested range Is patient on anticoagulants? No AnticoagulantsCOMPREHENSIVE METABOLIC PANEL 2018-09-28 09:16:00* Test Item Value Reference Range Interpretation Comme nts SODIUM (test code = NA) 142 MMOL/L 133-145 N POTASSIUM (test code = K) 4.6 MMOL/L 3.6-5.2 N CHLORIDE (test code = CL) 107 MMOL/L 100-108 N CARBON DIOXIDE (test code = CO2) 27 MMOL/L 22-32 N GLUCOSE (test code = GLU) 136 MG/DL 65-99 H Results of this assay method may be falsely depressed orelevated if patient is taking sulfasalazine. BLOOD UREA NITROGEN (test code = BUN) 26 MG/DL 6-20 H GLOMERULAR FILTRATION RATE (test code = GFR) 59 39-90 N Reporting units: mL/min/1.73m\\S\\2 (Modified MDRD Formula) CREATININE (test code = CREAT) 0.92 MG/DL 0.60-1.00 N TOTAL PROTEIN (test code = PROT) 5.6 G/DL 6.4-8.2 L ALBUMIN (test code = ALB) 2.3 G/DL 3.4-5.0 L GLOBULIN (test code = GLOB) 3.3 G/DL 1.5-3.8 N ALBUMIN/GLOBULIN RATIO (test code = A/G) 0.7 1.1-2.2 L CALCIUM (test code = CA) 9.0 MG/DL 8.7-10.5 N BILIRUBIN TOTAL (test code = BILT) 0.3 MG/DL 0.0-1.0 N SGOT/AST (test code = AST) 15 Units/L 15-37 N Results of this assay method may be falsely depressed orelevated if patient is taking sulfasalazine. SGPT/ALT (test code = ALT) 13 Units/L 30-65 L Results of this assay method may be falsely depressed orelevated if patient is taking sulfasalazine. ALKALINE PHOSPHATASE TOTAL (test code = ALKP) 91 Units/L 50-136 N [id number] 09:16:00* Test Item Value Reference Range Interpretation Comme nts MAGNESIUM (test code = MAG) 2.2 MG/DL 1.8-2.4 N CBC W/AUTO [id number] 09:04:00* Test Item Value Reference Range Interpretation Comme nts WHITE BLOOD CELL (test code = WBC) 8.91 x10 3/uL 4.80-10.80 N RED BLOOD CELL (test code = RBC) 2.66 x10 6/uL 4.2-5.4 L HEMOGLOBIN (test code = HGB) 8.0 G/DL 12.0-16.0 L HEMATOCRIT (test code = HCT) 24.8 % 37-47 L MEAN CELL VOLUME (test code = MCV) 93.2 FL 81-99 N MEAN CELL HGB (test code = MCH) 30.1 PG 27-31 N MEAN CELL HGB CONCENTRATION (test code = MCHC) 32.3 G/DL 33-37 L RED CELL DISTRIBUTION WIDTH (test code = RDW) 14.3 % 11.5-14.5 N PLATELET COUNT (test code = PLT) 195 x10 3/uL 150-450 N MEAN PLATELET VOLUME (test c ode = MPV) 10.9 FL 7.4-10.4 H NEUTROPHIL % (test code = NT%) 87.5 % 42-86 H IMMATURE GRANULOCYTE % (test code = IG%) 0.7 % 0.0-2.0 N LYMPHOCYTE % (test code = LY%) 6.5 % 24-44 L MONOCYTE % (test code = MO%) 5.2 % 0.0-4.0 H EOSINOPHIL % (test code = EO%) 0.0 % 0.0-2.7 N BASOPHIL % (test code = BA%) 0.1 % 0.0-0.5 N NUCLEATED RBC % (test code = NRBC%) 0.0 % 0.0-0.0 N NEUTROPHIL # (test code = NT#) 7.80 x10 3/uL 1.8-7.7 H IMMATURE GRANULOCYTE # (test code = IG#) 0.06 x10 3/uL 0.00-0.03 H LYMPHOCYTE # (test code = LY#) 0.58 x10 3/uL 1.0-4.8 L MONOCYTE # (test code = MO#) 0.46 x10 3/uL 0.0-0.8 N EOSINOPHIL # (test code = EO#) 0.00 x10 3/uL 0.0-0.5 N BASOPHIL # (test code = BA#) 0.01 x10 3/uL 0.0-0.2 N NUCLEATED RBC # (test code = NRBC#) 0.0 X10 3/uL 0.0-0.2 N HGB [id number] 15:36:00* Test Item Value Reference Range Interpretation Comme nts HEMOGLOBIN (test code = HGB) 9.6 G/DL 12.0-16.0 L HEMATOCRIT (test code = HCT) 30.5 % 37-47 L MEAN CELL HGB CONCENTRATION (test code = MCHC) 31.5 G/DL 33-37 L PROTHROMBIN [id number] 05:27:00* Test Item Value Reference Range Interpretation Comme nts PROTHROMBIN TIME PATIENT (test code = PTP) 13.9 SECONDS 9.6-12.3 H INTERNATIONAL NORMAL RATIO (test code = INR) 1.23 Recommended INR range (warfarin therapy): 2.0 - 3.0INR (International Normalized Ratio) should beused when interpreting oral anticoaglulant therapy. For atrial fibrillation and treatment orprevention of deep vein thrombosis. Patients with Palmaz-Donte stent *: 2.0 - 3.0 Patients with mechanical heart valve *: 2.5 - 3.5 Patients with flex-stent *: 3.0 - 4.0(*) = vehicle dynamics engineer's suggested range Is patient on anticoagulants? UnknownCOMPREHENSIVE METABOLIC [id number] 04:47:00* Test Item Value Reference Range Interpretation Comme nts SODIUM (test code = NA) 140 MMOL/L 133-145 N POTASSIUM (test code = K) 4.0 MMOL/L 3.6-5.2 N CHLORIDE (test code = CL) 105 MMOL/L 100-108 N CARBON DIOXIDE (test code = CO2) 30 MMOL/L 22-32 N GLUCOSE (test code = GLU) 89 MG/DL 65-99 N Results of this assay method may be falsely depressed orelevated if patient is taking sulfasalazine. BLOOD UREA NITROGEN (test code = BUN) 11 MG/DL 6-20 N GLOMERULAR FILTRATION RATE (test code = GFR) 66 39-90 N Reporting units: mL/min/1.73m\\S\\2 (Modified MDRD Formula) CREATININE (test code = CREAT) 0.84 MG/DL 0.60-1.00 N TOTAL PROTEIN (test code = PROT) 5.3 G/DL 6.4-8.2 L ALBUMIN (test code = ALB) 2.3 G/DL 3.4-5.0 L GLOBULIN (test code = GLOB) 3.0 G/DL 1.5-3.8 N ALBUMIN/GLOBULIN RATIO (test code = A/G) 0.8 1.1-2.2 L CALCIUM (test code = CA) 8.5 MG/DL 8.7-10.5 L BILIRUBIN TOTAL (test code = BILT) 0.4 MG/DL 0.0-1.0 N SGOT/AST (test code = AST) 15 Units/L 15-37 N Results of this assay method may be falsely depressed orelevated if patient is taking sulfasalazine. SGPT/ALT (test code = ALT) 12 Units/L 30-65 L Results of this assay method may be falsely depressed orelevated if patient is taking sulfasalazine. ALKALINE PHOSPHATASE TOTAL (test code = ALKP) 98 Units/L 50-136 N CBC W/AUTO [id number] 04:15:00* Test Item Value Reference Range Interpretation Comme nts WHITE BLOOD CELL (test code = WBC) 7.83 x10 3/uL 4.80-10.80 N RED BLOOD CELL (test code = RBC) 2.50 x10 6/uL 4.2-5.4 L HEMOGLOBIN (test code = HGB) 7.2 G/DL 12.0-16.0 L HEMATOCRIT (test code = HCT) 23.8 % 37-47 L MEAN CELL VOLUME (test code = MCV) 95.2 FL 81-99 N MEAN CELL HGB (test code = MCH) 28.8 PG 27-31 N MEAN CELL HGB CONCENTRATION (test code = MCHC) 30.3 G/DL 33-37 L RED CELL DISTRIBUTION WIDTH (test code = RDW) 14.4 % 11.5-14.5 N PLATELET COUNT (test code = PLT) 162 x10 3/uL 150-450 N MEAN PLATELET VOLUME (test c ode = MPV) 11.0 FL 7.4-10.4 H NEUTROPHIL % (test code = NT%) 67.7 % 42-86 N IMMATURE GRANULOCYTE % (test code = IG%) 0.4 % 0.0-2.0 N LYMPHOCYTE % (test code = LY%) 16.1 % 24-44 L MONOCYTE % (test code = MO%) 14.0 % 0.0-4.0 H EOSINOPHIL % (test code = EO%) 1.5 % 0.0-2.7 N BASOPHIL % (test code = BA%) 0.3 % 0.0-0.5 N NUCLEATED RBC % (test code = NRBC%) 0.0 % 0.0-0.0 N NEUTROPHIL # (test code = NT#) 5.30 x10 3/uL 1.8-7.7 N IMMATURE GRANULOCYTE # (test code = IG#) 0.03 x10 3/uL 0.00-0.03 N LYMPHOCYTE # (test code = LY#) 1.26 x10 3/uL 1.0-4.8 N MONOCYTE # (test code = MO#) 1.10 x10 3/uL 0.0-0.8 H EOSINOPHIL # (test code = EO#) 0.12 x10 3/uL 0.0-0.5 N BASOPHIL # (test code = BA#) 0.02 x10 3/uL 0.0-0.2 N NUCLEATED RBC # (test code = NRBC#) 0.0 X10 3/uL 0.0-0.2 N [id number] 21:45:00* Test Item Value Reference Range Interpretation Comme nts TROPONIN-I (test code = TROPI) < 0.04 NG/ML 0.00-0.06 N - The use of ser ial sampling and testing protocol is a recommended practice.- An elevated troponin level alone is often not sufficient for diagnosis of myocardial infarction.Results of this assay method may be falsely depressed orelevated if patient is taking high doses of Biotin. PROTHROMBIN [id number] 03:57:00* Test Item Value Reference Range Interpretation Comme nts PROTHROMBIN TIME PATIENT (test code = PTP) 15.0 SECONDS 9.6-12.3 H INTERNATIONAL NORMAL RATIO (test code = INR) 1.32 Recommended INR range (warfarin therapy): 2.0 - 3.0INR (International Normalized Ratio) should beused when interpreting oral anticoaglulant therapy. For atrial fibrillation and treatment orprevention of deep vein thrombosis. Patients with Palmaz-Donte stent *: 2.0 - 3.0 Patients with mechanical heart valve *: 2.5 - 3.5 Patients with flex-stent *: 3.0 - 4.0(*) = vehicle dynamics engineer's suggested range Is patient on anticoagulants? No AnticoagulantsTHROMBOPLASTIN TIME PARTIAL 2018-09-26 03:57:00* Test Item Value Reference Range Interpretation Comme nts THROMBOPLASTIN TIME PARTIAL (test code = PTT) 37.3 SECONDS 22.5-35.3 H *Therapeutic lev el for heparin: 1.5 - 2.5 times the average patient value of 30.0 seconds. The aPTT tet should not be used to evaluate low moleculat weight heparin anticoagulant therapy. Is patient on anticoagulants? No AnticoagulantsCOMPREHENSIVE METABOLIC PANEL 2018-09-26 03:57:00* Test Item Value Reference Range Interpretation Comme nts SODIUM (test code = NA) 142 MMOL/L 133-145 N POTASSIUM (test code = K) 4.3 MMOL/L 3.6-5.2 N CHLORIDE (test code = CL) 106 MMOL/L 100-108 N CARBON DIOXIDE (test code = CO2) 31 MMOL/L 22-32 N GLUCOSE (test code = GLU) 112 MG/DL 65-99 H Results of this assay method may be falsely depressed orelevated if patient is taking sulfasalazine. BLOOD UREA NITROGEN (test code = BUN) 21 MG/DL 6-20 H GLOMERULAR FILTRATION RATE (test code = GFR) 53 39-90 N Reporting units: mL/min/1.73m\\S\\2 (Modified MDRD Formula) CREATININE (test code = CREAT) 1.02 MG/DL 0.60-1.00 H TOTAL PROTEIN (test code = PROT) 5.9 G/DL 6.4-8.2 L ALBUMIN (test code = ALB) 2.9 G/DL 3.4-5.0 L GLOBULIN (test code = GLOB) 3.0 G/DL 1.5-3.8 N ALBUMIN/GLOBULIN RATIO (test code = A/G) 1.0 1.1-2.2 L CALCIUM (test code = CA) 8.6 MG/DL 8.7-10.5 L BILIRUBIN TOTAL (test code = BILT) 0.6 MG/DL 0.0-1.0 N SGOT/AST (test code = AST) 22 Units/L 15-37 N Results of this assay method may be falsely depressed orelevated if patient is taking sulfasalazine. SGPT/ALT (test code = ALT) 18 Units/L 30-65 L Results of this assay method may be falsely depressed orelevated if patient is taking sulfasalazine. ALKALINE PHOSPHATASE TOTAL (test code = ALKP) 107 Units/L 50-136 N [id number] 03:57:00* Test Item Value Reference Range Interpretation Comme nts PHOSPHOROUS (test code = PHOS) 3.3 MG/DL 2.5-4.9 N [id number] 03:57:00* Test Item Value Reference Range Interpretation Comme nts MAGNESIUM (test code = MAG) 2.0 MG/DL 1.8-2.4 N CALCIUM [id number] 03:51:00* Test Item Value Reference Range Interpretation Comme nts CALCIUM IONIZED (test code = AMARIS) 1.17 MMOL/L 1.12-1.32 N CBC W/AUTO [id number] 03:38:00* Test Item Value Reference Range Interpretation Comme nts WHITE BLOOD CELL (test code = WBC) 10.70 x10 3/uL 4.80-10.80 N RED BLOOD CELL (test code = RBC) 2.90 x10 6/uL 4.2-5.4 L HEMOGLOBIN (test code = HGB) 8.6 G/DL 12.0-16.0 L HEMATOCRIT (test code = HCT) 27.0 % 37-47 L MEAN CELL VOLUME (test code = MCV) 93.1 FL 81-99 N MEAN CELL HGB (test code = MCH) 29.7 PG 27-31 N MEAN CELL HGB CONCENTRATION (test code = MCHC) 31.9 G/DL 33-37 L RED CELL DISTRIBUTION WIDTH (test code = RDW) 14.5 % 11.5-14.5 N PLATELET COUNT (test code = PLT) 183 x10 3/uL 150-450 N MEAN PLATELET VOLUME (test code = MPV) 10.8 FL 7.4-10.4 H NEUTROPHIL % (test code = NT%) 76.9 % 42-86 N IMMATURE GRANULOCYTE % (test code = IG%) 0.5 % 0.0-2.0 N LYMPHOCYTE % (test code = LY%) 10.7 % 24-44 L MONOCYTE % (test code = MO%) 10.8 % 0.0-4.0 H EOSINOPHIL % (test code = EO%) 0.7 % 0.0-2.7 N BASOPHIL % (test code = BA%) 0.4 % 0.0-0.5 N NUCLEATED RBC % (test code = NRBC%) 0.0 % 0.0-0.0 N NEUTROPHIL # (test code = NT#) 8.22 x10 3/uL 1.8-7.7 H IMMATURE GRANULOCYTE # (test code = IG#) 0.05 x10 3/uL 0.00-0.03 H LYMPHOCYTE # (test code = LY#) 1.15 x10 3/uL 1.0-4.8 N MONOCYTE # (test code = MO#) 1.16 x10 3/uL 0.0-0.8 H EOSINOPHIL # (test code = EO#) 0.08 x10 3/uL 0.0-0.5 N BASOPHIL # (test code = BA#) 0.04 x10 3/uL 0.0-0.2 N NUCLEATED RBC # (test code = NRBC#) 0.0 X10 3/uL 0.0-0.2 N [id number] 20:07:00* Test Item Value Reference Range Interpretation Comme nts HEMOGLOBIN (test code = HGB) 6.9 G/DL 12.0-16.0 LL CV CALL [id number] 20:07:00* Test Item Value Reference Range Interpretation Comme nts CV CALL HEM (test code = CVCH) [id number] 20:07:00* Test Item Value Reference Range Interpretation Comme nts HEMOGLOBIN (test code = HGB) 6.9 G/DL 12.0-16.0 LL CV CALL [id number] 20:07:00* Test Item Value Reference Range Interpretation Comme nts CV CALL HEM (test code = CVCH) Called Results called t o and read back by VEENA GOODWIN RN;.for analyte(s): HGB.at 200609/25/18; by D.LAB.BVP. PROTHROMBIN [id number] 14:56:00* Test Item Value Reference Range Interpretation Comme nts PROTHROMBIN TIME PATIENT (test code = PTP) 19.4 SECONDS 9.6-12.3 H INTERNATIONAL NORMAL RATIO (test code = INR) 1.70 Recommended INR range (warfarin therapy): 2.0 - 3.0INR (International Normalized Ratio) should beused when interpreting oral anticoaglulant therapy. For atrial fibrillation and treatment orprevention of deep vein thrombosis. Patients with Palmaz-Donte stent *: 2.0 - 3.0 Patients with mechanical heart valve *: 2.5 - 3.5 Patients with flex-stent *: 3.0 - 4.0(*) = vehicle dynamics engineer's suggested range Is patient on anticoagulants? UnknownHGB [id number] 14:28:00* Test Item Value Reference Range Interpretation Comme nts HEMOGLOBIN (test code = HGB) 8.0 G/DL 12.0-16.0 L HEMATOCRIT (test code = HCT) 26.1 % 37-47 L MEAN CELL HGB CONCENTRATION (test code = MCHC) 30.7 G/DL 33-37 L PROTHROMBIN [id number] 11:44:00* Test Item Value Reference Range Interpretation Comme nts PROTHROMBIN TIME PATIENT (test code = PTP) 26.2 SECONDS 9.6-12.3 HH INTERNATIONAL NORMAL RATIO (test code = INR) 2.28 Recommended INR range (warfarin therapy): 2.0 - 3.0INR (International Normalized Ratio) should beused when interpreting oral anticoaglulant therapy. For atrial fibrillation and treatment orprevention of deep vein thrombosis. Patients with Palmaz-Donte stent *: 2.0 - 3.0 Patients with mechanical heart valve *: 2.5 - 3.5 Patients with flex-stent *: 3.0 - 4.0(*) = vehicle dynamics engineer's suggested range Is patient on anticoagulants? UnknownCV CALL [id number] 11:44:00* Test Item Value Reference Range Interpretation Comme [facility] CV CALL COAG (test code = CVCG) Called Results called t o and read back by KAYLIN REESE, RN;.for analyte(s): PT .at 1144 - 09/25/18 by DRimaLAB.MISAEL. Is patient on anticoagulants? UnknownPROTHROMBIN [id number] 11:43:00* Test Item Value Reference Range Interpretation Comme nts PROTHROMBIN TIME PATIENT (test code = PTP) 26.2 SECONDS 9.6-12.3 HH INTERNATIONAL NORMAL RATIO (test code = INR) 2.28 Recommended INR range (warfarin therapy): 2.0 - 3.0INR (International Normalized Ratio) should beused when interpreting oral anticoaglulant therapy. For atrial fibrillation and treatment orprevention of deep vein thrombosis. Patients with Palmaz-Donte stent *: 2.0 - 3.0 Patients with mechanical heart valve *: 2.5 - 3.5 Patients with flex-stent *: 3.0 - 4.0(*) = vehicle dynamics engineer's suggested range Is patient on anticoagulants? UnknownCV CALL [id number] 11:43:00* Test Item Value Reference Range Interpretation Comme nts CV CALL COAG (test code = CVCG) Is patient on anticoagulants? Unknown- CT LOWER EXTRM W/CON [id number] 08:32:00Patient Name: GABBIE CASTANEDA Unit No: [id number] EXAMS: CPT CODE: [id number] CT LOWER EXTRM W/CONRT 44571 Reason: pain, hematoma, on blood thinner INDICATION: 78 years Female with pain, hematoma,on blood thinners COMPARISON: None TECHNIQUE: Volumetric axial CT images of the right lower extremity obtained following the uneventful administration of 80 mL Isovue-300 intravenous contrast. FINDINGS: There is a large hematoma within the subcutaneous fat of the medial calf soft tissues measuring approximately 10.0 x 6.6 x 15.3 cm (AP by TR by SI). The hematoma has high density and low-density components, indicating acute on chronic blood. Additionally, there is high density active extravasation of acute blood into the hematoma. This appears to be coming from a small superficial artery or vein, located on the deep aspect of the hematoma. There is diffuse edema of the right lower extremity.There is extensive atherosclerotic plaquing of the arteries. The knee joint is not well evaluated due to streak artifact from arthroplasty. Bones are osteopenic, without fracture. IMPRESSION: 1. Large hematoma located within the subcutaneous fat of the medial calf measuring 10.0 x 6.6 x 15.3 cm. 2. Active extravasation of blood into the hematoma from a small superficial artery or vein, locatedalong the deep aspect of the hematoma. Discussed with Dr. Hercules over the phone at the time of dictat ion. at 0832 Reported and signed by: Zhou Dallas MD CC: Luke Hercules DOBhupendra Bass Technologist: Nadir Glaser CT Trscrpt Dt/ (0832)t.SDR.MMC3 Orig Print D/T: S: 09/25/2018 (0835) CTDI: DLP: [facility] NAME:MIGUEL CASTANEDADOROTHY MCGHEE [address] [facility] PHYS: Luke Altam[place] [address] : 1940 AGE: 78 SEX: F LOC: MARANDA PHONE #: [phone] EXAM DATE: 09/25/2018 STATUS: REG ER FAX #: RAD NO: DC Dt: PAGE 1 Signed Report- CT LOWER EXTRM W/CON [id number] 08:32:00Patient Name: MIGUEL CASTANEDADOROTHY MCGHEE Unit No: [id number] EXAMS: CPT CODE: [id number] CT LOWER EXTRM W/CONRT 19415 Reason: pain, hematoma, on blood thinner INDICATION: 78 years Female with pain, hematoma, on blood thinners COMPARISON: None TECHNIQUE: Volumetric axial CT images of the right lower extremity obtained following the uneventful administration of 80 mL Isovue-300 intravenous contrast. FINDINGS: There is a large hematoma within the subcutaneous fat of the medial calf soft tissues measuring approximately 10.0 x 6.6 x 15.3 cm (AP by TR by SI). The hematoma has high density and low-density components, indicating acute on chronic blood. Additionally, there is high density active extravasation of acute blood into the hematoma. This appears to be coming from a small superficial artery or vein, located on the deep aspect of the hematoma. There is diffuse edema of the right lower extremity. There is extensive atherosclerotic plaquing of the arteries. The knee joint is not well evaluated due to streak artifact from arthroplasty. Bones are osteopenic, without fracture. IMPRESSION: 1. Largehematoma located within the subcutaneous fat of the medial calf measuring 10.0 x 6.6 x 15.3 cm. 2. Active extravasation of blood into the hematoma from a small superficial artery or vein, located along the deep aspect of the hematoma. Discussed with Dr. Hercules over the phone at the time of dictation. at 0832 Reported and signed by: Zhou Dallas MD CC: Luke Hercules DO; Chele Bass Technologist: Nadir Glaser CT Trscrpt Dt/ (0832)[id number] Orig Print D/T: S: 09/25/2018 (0835) CTDI: DLP: [facility] NAME: GABBIE CASTANEDA [address] PHYS: Luke Altamirano DO Yuriy Gonzalez [id number] : 1940 AGE: 78 SEX: F LOC: D.Y314 1 PHONE #: [phone] EXAM DATE: 09/25/2018 STATUS: DIS IN FAX #: RAD NO: DC Dt: 10/01/2018 PAGE 1 Signed ReportPROTHROMBIN [id number] 07:08:00* Test Item Value Reference Range Interpretation Comme nts PROTHROMBIN TIME PATIENT (test code = PTP) 26.3 SECONDS 9.6-12.3 HH INTERNATIONAL NORMAL RATIO (test code = INR) 2.29 Recommended INR range (warfarin therapy): 2.0 - 3.0INR (International Normalized Ratio) should beused when interpreting oral anticoaglulant therapy. For atrial fibrillation and treatment orprevention of deep vein thrombosis. Patients with Palmaz-Donte stent *: 2.0 - 3.0 Patients with mechanical heart valve *: 2.5 - 3.5 Patients with flex-stent *: 3.0 - 4.0(*) = vehicle dynamics engineer's suggested range Is patient on anticoagulants? UnknownTHROMBOPLASTIN TIME [id number] 07:08:00* Test Item Value Reference Range Interpretation Comme nts THROMBOPLASTIN TIME PARTIAL (test code = PTT) 40.7 SECONDS 22.5-35.3 H *Therapeutic lev el for heparin: 1.5 - 2.5 times the average patient value of 30.0 seconds. The aPTT tet should not be used to evaluate low moleculat weight heparin anticoagulant therapy. Is patient on anticoagulants? UnknownCV CALL [id number] 07:08:00* Test Item Value Reference Range Interpretation Comme [facility] CV CALL COAG (test code = CVCG) Is patient on anticoagulants? UnknownPROTHROMBIN [id number] 07:08:00* Test Item Value Reference Range Interpretation Comme [facility] PROTHROMBIN TIME PATIENT (test code = PTP) 26.3 SECONDS 9.6-12.3 HH INTERNATIONAL NORMAL RATIO (test code = INR) 2.29 Recommended INR range (warfarin therapy): 2.0 - 3.0INR (International Normalized Ratio) should beused when interpreting oral anticoaglulant therapy. For atrial fibrillation and treatment orprevention of deep vein thrombosis. Patients with Palmaz-Donte stent *: 2.0 - 3.0 Patients with mechanical heart valve *: 2.5 - 3.5 Patients with flex-stent *: 3.0 - 4.0(*) = vehicle dynamics engineer's suggested range Is patient on anticoagulants? UnknownTHROMBOPLASTIN TIME [id number] 07:08:00* Test Item Value Reference Range Interpretation Comme [facility] THROMBOPLASTIN TIME PARTIAL (test code = PTT) 40.7 SECONDS 22.5-35.3 H *Therapeutic lev el for heparin: 1.5 - 2.5 times the average patient value of 30.0 seconds. The aPTT tet should not be used to evaluate low moleculat weight heparin anticoagulant therapy. Is patient on anticoagulants? UnknownCV CALL [id number] 07:08:00* Test Item Value Reference Range Interpretation Comme [facility] CV CALL COA (test code = CVCG) Called Results called t o and read back by NATALY WAY RN;.for analyte(s): [place] [address]/25/18 by SERENAMISAEL. Is patient on anticoagulants? UnknownBASIC METABOLIC [id number] 06:59:00* Test Item Value Reference Range Interpretation Comme nts SODIUM (test code = NA) 142 MMOL/L 133-145 N POTASSIUM (test code = K) 4.4 MMOL/L 3.6-5.2 N CHLORIDE (test code = CL) 104 MMOL/L 100-108 N CARBON DIOXIDE (test code = CO2) 30 MMOL/L 22-32 N GLUCOSE (test code = GLU) 134 MG/DL 65-99 H Results of this assay method may be falsely depressed orelevated if patient is taking sulfasalazine. BLOOD UREA NITROGEN (test code = BUN) 27 MG/DL 6-20 H GLOMERULAR FILTRATION RATE (test code = GFR) 45 39-90 N Reporting units: mL/min/1.73m\\S\\2 (Modified MDRD Formula) CREATININE (test code = CREAT) 1.16 MG/DL 0.60-1.00 H CALCIUM (test code = CA) 9.2 MG/DL 8.7-10.5 N CBC W/AUTO [id number] 06:43:00* Test Item Value Reference Range Interpretation Comme nts WHITE BLOOD CELL (test code = WBC) 10.47 x10 3/uL 4.80-10.80 N RED BLOOD CELL (test code = RBC) 3.58 x10 6/uL 4.2-5.4 L HEMOGLOBIN (test code = HGB) 10.4 G/DL 12.0-16.0 L HEMATOCRIT (test code = HCT) 33.1 % 37-47 L MEAN CELL VOLUME (test code = MCV) 92.5 FL 81-99 N MEAN CELL HGB (test code = MCH) 29.1 PG 27-31 N MEAN CELL HGB CONCENTRATION (test code = MCHC) 31.4 G/DL 33-37 L RED CELL DISTRIBUTION WIDTH (test code = RDW) 14.4 % 11.5-14.5 N PLATELET COUNT (test code = PLT) 257 x10 3/uL 150-450 N MEAN PLATELET VOLUME (test code = MPV) 11.2 FL 7.4-10.4 H NEUTROPHIL % (test code = NT%) 75.3 % 42-86 N IMMATURE GRANULOCYTE % (test code = IG%) 0.5 % 0.0-2.0 N LYMPHOCYTE % (test code = LY%) 12.5 % 24-44 L MONOCYTE % (test code = MO%) 9.6 % 0.0-4.0 H EOSINOPHIL % (test code = EO%) 1.6 % 0.0-2.7 N BASOPHIL % (test code = BA%) 0.5 % 0.0-0.5 N NUCLEATED RBC % (test code = NRBC%) 0.0 % 0.0-0.0 N NEUTROPHIL # (test code = NT#) 7.89 x10 3/uL 1.8-7.7 H IMMATURE GRANULOCYTE # (test code = IG#) 0.05 x10 3/uL 0.00-0.03 H LYMPHOCYTE # (test code = LY#) 1.31 x10 3/uL 1.0-4.8 N MONOCYTE # (test code = MO#) 1.00 x10 3/uL 0.0-0.8 H EOSINOPHIL # (test code = EO#) 0.17 x10 3/uL 0.0-0.5 N BASOPHIL # (test code = BA#) 0.05 x10 3/uL 0.0-0.2 N NUCLEATED RBC # (test code = NRBC#) 0.0 X10 3/uL 0.0-0.2 N - XR KNEE 4+V [id number] 19:48:00Patient Name: GABBIE CASTANEDA Unit No: [id number] EXAMS: CPT CODE: [id number] XR KNEE 4+[place] [address] Reason: ground level fall, pain 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 No fractures demonstrated. No joint effusion visible. IMPRESSION: Left knee replacement at 1947 Reported and signed by: Harvinder Johnson MD CC: Luke Dominguez MD; Chele Bass Technologist: Chelsi GARCIA; Mesfin Arellano RT Trscrpt Dt/ (1947)Manan Orig Print D/T: S: 09/23/2018 (1950) [facility] NAME: GABBIE CASTANEDA [address] PHYS: BC.Chandu - [place] [address] : 1940 AGE: 78 SEX: F LOC: MARANDA PHONE #: [phone] EXAM DATE: 09/23/2018 STATUS: REG ER FAX #: RAD NO: DC Dt: PAGE 1 Signed Report- XR KNEE 4+V [id number] 19:48:00Patient Name: GABBIE CASTANEDA Unit No: [id number] EXAMS: CPT CODE: [id number] XR KNEE 4+V LT 94272 Reason: ground level fall, pain 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 No fractures demonstrated. No joint effusion visible. IMPRESSION: Left knee replacement at 1948 Reported and signed by: Harvinder Johnson MD CC: Luke Dominguez MD; Chele Bass Technologist: Chelsi GARCIA; Mesfin Arellano RT Trscrpt Dt/ (1947)KellenDKW Orig Print D/T: S: 09/23/2018 (1950) [facility] NA ME: MANOHARGABBIE [address] PHYS: [place] [address] : 1940 AGE: 78 SEX: F LOC: SouravSTORM PHONE #: [phone] EXAM DATE: 09/23/2018 STATUS: DEP ER FAX #: RAD NO: DC Dt: PAGE 1 Signed Report- XR ANKLE 3+V [id number] 19:47:00Patient Name: GABBIE CASTANEDA Unit No: [id number] EXAMS: CPT CODE: [id number] XR ANKLE 3+V LT 00165 Reason: ground level fall, pain 4 views of the left ankle do not demonstrate a fracture. Tibiotalar joint is intact with no dislocation. There is mild degenerative sclerosis. There are scattered atherosclerotic calcifications. IMPRESSION: No acute abnormality at 1947 Reported and signed by: Harvinder Johnson MD CC: Luke Dominguez MD; Chele Bass Technologist: Chelsi GARCIA; Mesfin Arellano RT Trscrpt Dt/ (1946)Manan Orig Print D/T: S: 09/23/2018 (1950) [facility] NAME: GABBIE CASTANEDA [address] PHYS: [place] [address] : 1940 AGE: 78 SEX: F LOC: MARANDA PHONE #: [phone] EXAM DATE: 09/23/2018 STATUS: REG ER FAX #: RAD NO:DC Dt: PAGE 1 Signed Report- XR ANKLE 3+V [id number] 19:47:00Patient Name: GABBIE CASTANEDA Unit No: [id number] EXAMS: CPT CODE: [id number] XR ANKLE 3+V LT [address] Reason: ground level fall, pain 4 views of the left ankle do not demonstrate a fracture. Tibiotalar joint is intact with no dislocation. There is mild degenerative sclerosis. There are scattered ath erosclerotic calcifications. IMPRESSION: No acute abnormality at 1946 Reported and signed by: Harvinder Johnson MD CC: Luke Dmoinguez MD; Chele Bass Technologist: Chelsi GARCIA; Mesfin Arellano RT Trscrpt Dt/ (1946)t.SDR.DKW Orig Print D/T: S: 09/23/2018 (1950) [facility] NAME: GABBIE CASTANEDA [address] PHYS: BC.Chandu - Luke Dominguez [place] [address] : 1940 AGE: 78 SEX: F LOC: MARANDA PHONE #: [phone] EXAM DATE: 09/23/2018 STATUS: DEP ER FAX #: RAD NO: DC Dt: PAGE 1 Signed Report- CT C-SPINE W/O [id number] 19:35:00Patient Name: GABBIE CASTANEDA Unit No: [id number] EXAMS: CPT CODE: [id number] CT C-SPINE W/O CONT 33768 Reason: ground level fall, pain Technique: 2.5 mm images through the cervical spine with sagittal and coronal reformats FINDINGS: There is straightening of the cervical spine with minimal anterolisthesis at C3-4. Facet articulations are intact. There is multilevel disc space narrowing. The dens is maintained. No fracture is identified. There are scattered atherosclerotic calcifications. IMPRESSION: No acute bony abnormality at 1935 Reported and signed by: Harvinder Johnson MD CC: Luke Dominguez MD; Chele Bass Technologist: Ramon GARCIA Trscrpt Dt/ (1934)Manan Orig Print D/T: S: 09/23/2018 (1937) CTDI: DLP: [facility] NAME: GABBIE CASTANEDA [address] PHYS: MCCMI.[place] - [place] [address] : 1940 AGE: 78 SEX: F LOC: MARANDA PHONE #: [phone] EXAM DATE: 09/23/2018 STATUS: REG ER FAX #: RAD NO: DC Dt: PAGE 1 Signed Report- CT C-SPINE W/O CONT 2018-09-23 19:35:00Patient Name: GABBIE CASTANEDA Unit No: [id number] EXAMS: CPT CODE: [id number] CT C-SPINE W/O [id number] Reason: ground level fall, pain Technique: 2.5 mm images through the cervical spine with sagittal and coronal reformats FINDINGS: There is straightening of the cervical spine with minimal anterolisthesis at C3-4. Facet articulations are intact. There is multilevel disc space narrowing. The dens is maintained. No fracture is identified. There are scattered atherosclerotic calcifications. IMPRESSION: No acute bony abnormality at 1935 Reported and signed by: Harvinder Johnson MD CC: Luke Dominguez MD; Chele Bass Technologist: Ramon GARCIA Trscrpt Dt/ (1934)Manan Orig Print D/T: S: 09/23/2018 (1937) CTDI: DLP: [facility] NAME: GABBIE CASTANEDA [address] PHYS: [place] [address] : 1940 AGE: 78 SEX: F LOC: MARANDA PHONE #:[phone] EXAM DATE: 09/23/2018 STATUS: [facility] ER FAX #: RAD NO: DC Dt: PAGE 1 Signed Report- CT HEAD/BRAIN W/O CONT 2018-09-23 19:32:00Patient Name: GABBIE CASTANEDA Unit No: [id number] EXAMS: CPT CODE: [id number] CT HEAD/BRAIN W/O CONT 91285 Reason: ground level fall, pain TECHNIQUE: Standard unenhanced brain. FINDINGS: There aremild atrophic and chronic microvascular ischemic changes throughout both hemispheres. There is no intracranial hemorrhage, mass effect or abnormal extra-axial fluid collection. The ventricles are normal in size configuration. Bone windows show atherosclerotic calcification within the internal carotid arteries. IMPRESSION: Atrophic and microvascular ischemic changes, no acute intracranial abnormality at 1932 Reported and signed by: Harvinder Johnson MD CC: Luke Dominguez MD; Chele Bass Technologist: Ramon GARCIA Trscrpt Dt/ (1931)t.SDR.DKW Orig Print D/T: S: 09/23/2018 (1935) CTDI: DLP: [facility] NAME: GABBIE CASTANEDA [address] PHYS: BC.Chandu - [place] [address] :1940 AGE: 78 SEX: F LOC: MARANDA PHONE #: [phone] EXAM DATE: 09/23/2018 STATUS: [facility] ER FAX #: RAD NO: DC Dt: PAGE 1 Signed Report- CT HEAD/BRAIN W/O [id number] 19:32:00Patient Name: GABBIE CASTANEDA Unit No: [id number] EXAMS: CPT CODE: [id number] CT HEAD/BRAIN W/O CONT 14230 Reason: ground level fall, pain TECHNIQUE: Standard unenhanced brain. FINDINGS: There are mild atrophic and chronic microvascular ischemic changes throughout both hemispheres. There is no intracranial hemorrhage, mass effect or abnormal extra-axial fluid collection. The ventricles are normal in size configuration. Bone windows show atherosclerotic calcification within the internal carotid arteries. IMPRESSION: Atrophic and microvascular ischemic changes, no acute intracranial abnormality at 1932 Reported and signed by: Harvinder Johnson MD CC: Luke Dominguez MD; Chele Bass Technologist: Ramon GARCIA Trscrpt Dt/ (1931)tBEENAR.DKW Orig Print D/T: S: 09/23/2018 (1935) CTDI: DLP: [facility] NAME: GABBIE CASTANEDA [address] PHYS: [place] [address] : 1940 AGE: 78 SEX: F LOC: MARANDA PHONE #: [phone] EXAM DATE: 09/23/2018 STATUS: DEP ER FAX #: RAD NO: DC Dt: PAGE 1 Signed Report- DUP VEIN UNI/[id number] 03:47:00Patient Name: GABBIE CASTANEDA Unit No: [id number] EXAMS: CPT CODE: [id number] [facility] VEIN UNI/LTD [address]158 EXAM: US Duplex Right Lower Extremity Veins CLINICAL HISTORY: 77 years old, female; Right leg pain; right calf swelling. TECHNIQUE: Real-time duplex ultrasound scan of the right lower extremity veins integrating B-mode two-dimensional vascular structure, Doppler spectral analysis, color flow Doppler imaging and compression. COMPARISON: No relevant prior studies available. FINDINGS: Deep veins: No DVT in the visualized common femoral, femoral, proximal deep femoral or popliteal veins. The veins demonstrate normal color flow, are normally compressible, with normal phasic flow and/or augmentation response. Superficial veins: No thrombus in the visualized great saphenous vein. Soft tissues: There is superficial soft tissue edema. IMPRESSION: No deep venous thrombosis. at 0347 Reported and signed by: Scooby Booth CC: Luis Simpson MD Technologist: Jannette Solis Trnscrbd D/ (346) VRAD.VR OrigPrint D/T: S: 12/04/2017 (346) Probe: [facility] NAME: GABBIE CASTANEDA [address] PHYS: [place] [address] : 1940 AGE: 77 SEX: F LOC: UNK PHONE #: [phone] EXAM DATE: 12/04/2017 STATUS: DEP ER FAX #: RAD NO: Page 1 Signed Report- DUP VEIN [id number] 11:53:00Patient Name: GABBIE CASTANEDA Unit No: [id number] EXAMS: CPT CODE: [id number] DUP VEIN LIS 43620 -DUP VEIN LIS 10/21/2017 10:43 AM RIGHT LEG VENOUS DOPPLER: The veins of the right lower extremity were interrogated from the common femoral vein to the popliteal vein. Flow is present in these vessels.They demonstrate normal compressibility and augmentation of flow with appropriate maneuvers. Normal respiratory variation of flow is noted. IMPRESSION: No evidence of deep venous thrombosis. LEFT LEGVENOUS DOPPLER: The veins of the left lower extremity were interrogated from the visible common femoral vein to the distal popliteal vein. Flow is present in these vessels. They demonstrate normal compressibility and augmentation of flow with appropriate maneuvers. Normal respiratory variation of flow is noted. IMPRESSION: No evidence of deep venous thrombosis. at 1153 Reported and signed by: Chele Reinoso MD CC: Chele Bass Technologist: Kassi Lambert Trnscrbd D/ (1153) [email or web address] Orig Print D/T: S: 10/21/2017 (1157) Probe: [facility] NAME: GABBIE CASTANEDA [address] PHYS: [email or web address] - [place] [address] : 1940 AGE: 77 SEX: F LOC: UNK PHONE #:[phone] EXAM DATE: 10/21/2017 STATUS: RENARD CLI FAX #: RAD NO: Page 1 Signed Report- CTA [id number] 14:27:00Patient Name: GABBIE CASTANEDA Unit No: [id number] EXAMS: CPT CODE: [id number] CTA CHEST 02230 Reason: PE noticed incidentally on CT A/ - CTA CHEST 07/12/2017 11:[address] images were obtained through the chest after IV contrast - 100 mL of Isovue-370. Pulmonary embolus protocol was employed. Three-D rendering images were obtained and used for interpretation of the study. There is excellent op acification of the pulmonary arteries. There is a saddle embolus draped across the in pulmonary artery bifurcation, the majority of the clot appears to flow down to the left lower lobe arteries whereit is nearly occlusive. A small amount of clot is seen in some of the upper lung branches. Additional clot burden is seen in some right lower lobe pulmonary artery branches. There is some parenchymalconsolidation seen at both bases. On the right it enhances normally. On the left, much of it does not enhance. There are small bilateral pleural effusions. The heart size is normal. There is no pericardial effusion. Mediastinal and hilar regions do not show any abnormally enlarged lymph nodes. Visualized abdominal contents show increased sinus fat in the kidneys. Surgical clips are in the gallbladder fossa. IMPRESSION: 1. Saddle embolus in the main pulmonary arteries. 2. Bilateral lower lung and left upper lung, and embolize well. More significant clot burden seen in the left lower lobe pulmonary arteries with some nonenhancing parenchymal consolidation left base suspicious for pulmonary infarct. 3. Bibasilar pleural-parenchymal disease as described above. at 1423 Reported and signed by: Chele Reinoso MD CC: Chele Bass; Israel Tirado DO Technologist: Wagner GARCIA Trscrpt Dt/ ([email or web address] Orig Print D/T: S: 07/12/2017 (1705) CTDI: DLP: [facility] NAME: GABBIE CASTANEDA [address] PHYS: Israel Castro DO R3 Maria Luisa Goldman,[place] [address] : 1940 AGE: 76 SEX: F LOC: [facility] PHONE #: [phone] EXAM DATE: 07/12/2017 STATUS: DIS IN FAX #: RAD NO: DC Dt: PAGE 1 Signed Report- [facility]/[id number] 18:35:00Patient Name: GABBIE CASTANEDA Unit No: [id number] EXAMS: CPT CODE: [id number] DUP VEIN UNI/LTD 80453 EXAM: - DUP VEIN UNI/LTD REASON FOR EXAM: PE on CT A/P COMPARISON: None. Techniques: Right lowerextremity venous duplex ultrasound study performed. FINDINGS: Occlusive thrombus identified involving right superficial femoral vein and right popliteal vein. Right posterior tibial vein and peronealvein are not visualized. Right common femoral vein and right deep femoral vein are patent. Right greater saphenous vein is patent. IMPRESSION: Extensive occlusive thrombus of right lower extremity as noted. Patient's nurse notified at time of dictation. FOR INTERNAL CODING PURPOSES ONLY RESULT CODE: CVR [id number] Reported and signed by: Tanya Azevedo MD CC: Chele Bass; Israel Tirado DO Technologist: Immanuel Junior Trnscrbd D/ (1834) [email or web address] Orig Print D/T: S: 07/09/2017 (183) Probe: [facility] NAME: GABBIE CASTANEDA [address] PHYS: Israel Castro DO [address] [place] [address] : 1940 AGE: 76 SEX: F LOC: UNK PHONE #: [phone] EXAM DATE: 07/09/2017 STATUS: DIS IN FAX #: RAD NO: Page 1 Signed Report- CT ABD PELVIS W WO [id number] 12:40:00Patient Name: GABBIE CASTANEDA Unit No: [id number] EXAMS: CPT CODE: [id number] CT ABD PELVIS W WO CONT 61052 Reason: N13.30 HYDRONEPHROSIS - CT ABD PELVIS W WO CONT 07/09/2017 9:[address] images were obtained through the abdomen and pelvis after oral and IV contrast, 100 mL of Isovue-300. Coronal and sagittal reconstructions were obtained. The lung bases show an infiltrate in the left with some stranding on the right. More significantly, there is an intraluminal filling defect seen in theright lower lobe pulmonary artery. The heart size is within normal limits with a mild left atrial enlargement. The liver and spleen enhance homogeneously without focal lesion. Surgical clips are in the gallbladder fossa. The pancreas and adrenals are normal. The retroperitoneum does not show any abnormally enlarged lymph nodes. Some atherosclerotic vascular calcification is present. Kidneys have a fairly normal size and position. They enhance symmetrically. There is increased sinus fat with mild parenchymal thinning. There is no khloe hydronephrosis on either side. There are some dilatation to the inferior left collecting system, but only the inferior aspect of the left collecting system and it appears to transition to normal ureter across the UPJ. The GI tract is not obstructed. There are diverticula scattered about the sigmoid colon. Urinary bladder is normally distended. There is no free fluid or extraluminal gas. Musculoskeletal system shows mild loss of height of T11 IMPRESSION: 1. Nonocclusive, embolus to right lower lobe pulmonary artery. There is also left lower lobe infiltrate. 2. Diverticulosis. 3. Atherosclerosis. 4. Some focal dilatation to the inferior left collectingsystem without evidence of hydronephrosis or occlusion/obstruction elsewhere. 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 Notified patient's physician at time of dictation FOR INTERNAL CODING PURPOSES ONLY RESULT CODE: CVR at 1240 Reported and signed by: Chele Reinoso MD CC:Chele Bass Technologist: Wagner GARCIA Trscrpt Dt/ (7580)t.[email or web address] Orig Print D/T: S: 07/09/2017 (0107) CTDI: DLP: [facility] NAME: GABBIE CASTANEDA [address] PHYS: [place] [address] : 1940 AGE: 76 SEX: F LOC: UNK PHONE #: [phone] EXAM DATE: 07/09/2017 STATUS: DIS IN FAX #: RAD NO: DC Dt:PAGE 1 Signed Report- MRI L-SPINE W/O [id number] 12:33:00Patient Name: GABBIE CASTANEDA Unit No: [id number] EXAMS: CPT CODE: [id number] MRI L-SPINE W/O [id number] Reason: BACK PAIN - MRI L-SPINE W/O CONT 07/06/2017 11:07 AM Indication: Back pain COMPARISON: None FINDINGS: Noncontrast scanning lumbar spine shows multilevel mild degenerative disc bulges and posterior annular degeneration, although I see no spinal stenosis nor significant foraminal narrowing. Incidental note is made of left UPJ obstruction with moderate left hydronephrosis. There is also diffuse back area subcutaneous fat edema, although I do not see visible signs of bony laminectomy.Impression: Graft opinion: Graft opinion: Graft opinion: Subcutaneous fat edema, otherwise No acutedisease. at 1233 Reported and signed by: Piotr Amin MD CC: Chele Bass Technologist: Sonam CORONA RT Trscrpt Dt/ (3093)t.PKE Orig Print D/T: S: 07/06/2017 (5593) [facility] NAME: GABBIE CASTANEDA [address] PHYS: [email or web address] [place] [address] : 1940 AGE: 76 SEX: F LOC: UNK PHONE #: [phone] EXAM DATE: 07/06/2017 STATUS: DEP CLI FAX #: RAD NO: DC Dt: PAGE 1 Signed Report- MRI T-SPINE W/O [id number] 12:26:00Patient Name: GABBIE CASTANEDA Unit No: [id number] EXAMS: CPT CODE: [id number] MRI T- SPINE W/O CONT 67485 Reason: BACK PAIN - MRI T-SPINE W/O CONT 07/06/2017 11:07 AM Indication: Back pain COMPARISON: None, other than a 02/05/2017 rib series showing a "T11" compression fracture. TECHNIQUE: Noncontrast scanning of the thoracic spine FINDINGS: Old looking 40% T11 anterior wedge compression fracture.No middle column involvement nor significant retropulsed fragment. No abnormal marrow space signal on IR to suggest acute fracture. The remainder of the thoracic spine is unremarkable for age. The disc spaces and vertebral body heights maintained, as is the bony spinal canal. The thoracic cord looks normal in size and signal. Onus at T12. Impression: No acute disease. at 1226 Reported and signed by: Piotr Amin MD CC: Chele Bass Technologist: Sonam CORONA RT Trscrpt Dt/ (9326)KellenPKE Orig Print D/T: S: 07/06/2017 (0304) [facility] NAME: GABBIE CASTANEDA [address] [facility] PHYS: [email or web address] - [place] [address] : 1940 AGE: 76 SEX: F LOC: [facility] PHONE #: [phone] EXAM DATE: 07/06/2017 STATUS: DEP CLI FAX #: RAD NO: DC Dt: PAGE 1 Signed Report- XR RIBS UNI W/CXR 3+V [id number] 08:33:00 Patient Name: GABBIE CASTANEDA Unit No: [id number] EXAMS: CPT CODE: [id number] XR RIBS UNI W/CXR 3+[place] [address] Reason: SEVERE COUGH AND RIGHT LATERAL RIB PAIN Findings: 4 views right RIBS demonstratesgeneralized demineralization. No acute displaced rib fractures visualized. Bibasilar atelectasis more severe on the right.. No pneumothorax. No definite pleural fluid. IMPRESSION: No acute displaced rib fracture identified. at 0833 Reported and signed by: Giorgi Issa MD CC: Thomas GASPAR; Luis Simpson MD Technologist: Ashley Diggs RT Trscrpt Dt/ (0733)[email or web address] Orig Print D/T: S: 02/06/2017 (4952) [facility] NAME: GABBIE CASTANEDA [address] PHYS: [place] [address] : 1940 AGE: 76 SEX: F LOC: UNK PHONE #: [phone] EXAM DATE: 02/05/2017 STATUS: UNK FAX #: RAD NO: DC Dt: PAGE 1 Signed Report- NM BONE WHOLE [id number] 14:44:00Patient Name: GABBIE CASTANEDA Unit No: [id number] EXAMS: CPT CODE: [id number] NM BONE WHOLE BODY 81129 Reason: COMPRESSION FX--L SPINE - NM BONE WHOLE BODY 01/23/2016 8:00 AM Indication: Lumbar compression fracture COMPARISON: None. I do not even have any plain films to to correlate with nor what lumbar level is suspected as fracture site. FINDINGS: Head to toe whole body scanning 3 hours after 23mCi technetium MDP FINDINGS: There appear to be 5 lumbar type vertebral bodies. Assuming this, there is left-sided L5-S1 increased activity on both sides of the disc space and is most likely degenerative/spondylosis related. There is mild transverse uptake in the "T11" vertebral body could be mild compression fracture in the healing phase. There is diffuse degenerative uptake in the shoulders, feet, ankles, cervical spine, as well as left aspect of the mandible which is probably dental disease related. IMPRESSION: Left presumed L5-S1 uptake probably degenerative. Correlation with plain films is needed. 2. Possible faint T11 compression fracture uptake. at 1444 Reported and signed by: Piotr Amin MD CC: Chele Bass Technologist: Chele LEAHY RT Trscrpt Dt/ (7880)Lois Orig Print D/T: S: 01/23/2016 (4646) [facility] NAME: GABBIE CASTANEDA [address] PHYS: Chele [place] [address] : 1940 AGE: 75 SEX: F LOC: UNK PHONE #: [phone] EXAM DATE: 01/23/2016 STATUS: UNK FAX #: RAD NO: DC Dt: PAGE 1 Signed Report Notes Date/Time Note Provider Source 2023-07-10 13:16:00 [facility] ([facility] OR A CAMPUS OF [facility] EMERGENCY PROVIDER REPORT REPORT#:[id number] REPORT STATUS: Signed DATE:07/10/23 TIME: 1316 PATIENT: GABBIE CASTANEDA UNIT #: [id number] ROOM/BED: AGE: 82 SEX: F PCP PHYS: Haja Carnes MD SERVICE AUTHOR: Talon Cuba FIELD TECHNICAL SUPPORT CONSULTANT, FISHER POUND NET OR TRAP, BICYCLE II ASSEMBLER * ALL edits or amendments must be made on the electronic/computer document * Talon Cuba 07/10/23 1316: HPI-General Illness General Confirmed Patient Yes Patient Type New patient Initial Greet Date/Time 07/10/23 1307 Presentation Chief Complaint Allergic reaction Hx Obtained From Patient Sudden in Onset? Yes Onset Occurred Today Free Text HPI Notes Free Text HPI Notes Patient presents to the emergency department for possible allergic reaction to facial cream. Patient states she used a facial cream last night and left it on overnight as directed on label and states when she woke up her face was red. Patient reports burning sensation and itching to face as well. Review of Systems Free Text ROS Notes Free Text ROS Notes Constitutional: normal mentation, no headache, no recent illnesses HENT: no ear, nose, mouth, throat pain Eyes: no eye pain, visual disturbance Respiratory: no shortness of breath, chest wall pain Cardiovascular: no chest pain Gastrointestinal: no nausea, vomiting, abdominal pain Genitourinary: no incontinence during injury Extremity: no extremity pain Skin: Patient reports redness to face Neurological: no numbness, weakness, paresthesia Psychiatric/Behavioral: no confusion, agitation Past Medical History - Adult Stated Complaint ALLERGIC REACTION TO SKIN CREAM Allergies Coded Allergies: aspirin (Intermediate, UNKNOWN 07/10/23) bacitracin (Intermediate, UNKNOWN 07/10/23) Smoking status for patients 13 years old or older: Unknown,if ever smoked Physical Exam Vital Signs Vital Signs First Documented: Result Date Time Pulse Ox 97 07/10 1314 B/P 131/96 07/10 1314 B/P Mean 107 07/10 1314 Temp 97.1 07/104 Pulse 74 07/10 1314 Resp 18 07/10 1313 Last Documented: Result Date Time Pulse Ox 97 07/10 1314 B/P 131/96 07/10 1314 B/P Mean 107 07/10 1314 Temp 97.1 07/104 Pulse 74 07/10 1314 Resp 18 07/10 131 Review of Vital Signs Reviewed Basic Physical Exam Basic PE GEN: Well appearing/NAD, HEAD: Atraumatic/NC, EYES: PERRL, conj clear, ENT: Membranes moist, NECK: Supple, RESP: No resp distress, CV: Reg rate rhythm, ABD: Soft/non-tender, EXT: No gross abnormality, NEURO: alert oriented , NEURO: gross movement NL, PSYCH: NL thought content Physical Exam General/Const General/Const Awake, Alert, No acute distress, Cooperative, Not toxic appearing Ears/Nose/Throat Ears/Nose/Throat Airway patent, Mucous membranes moist Resp/Chest Respiratory/Chest No respiratory distress Skin Text/Dict Notes Erythema noted to face. No ulceration, abscess, drainage or excoriation noted Neurologic Neurologic Oriented X3, Speech NL Psychiatric Psychiatric Affect NL, Mood NL Re-Evaluation MDM ED Course Medication(s) Ordered Medication(s) Ordered: Eye, Ear, Nose And Throat (Een Sig/Joanne Start time Last Medication Dose Route Stop Time Status Admin Dexamethasone Sodium 10 MG X1ED STA 07/10 1315 DC Phosphate IM 07/10 1316 Patient Discharge Departure Vital Signs/Condition Vital Signs First Documented: Result Date Time Pulse Ox 97 07/10 1314 B/P 131/96 07/10 1314 B/P Mean 107 07/10 1314 Temp 97.1 07/10 1313 Pulse 74 07/10 1314 Resp 18 07/10 131 Last Documented: Result Date Time Pulse Ox 97 07/10 1314 B/P 131/96 07/10 1314 B/P Mean 107 07/10 1314 Temp 97.1 07/10 1314 Pulse 74 07/10 131 Resp 18 07/10 131 All vital signs available at the time of this entry have been reviewed. Clinical Impression Clinical Impression Primary Impression: Allergic reaction Disposition Decision Discharge )( Discharged to Home Yes )( Time 1319 )( Date 07/10/23 Discharge/Care Plan Counseled Regarding Diagnosis, Prescriptions (Auto) Prescriptions Current Visit Scripts BETAMETHASONE DIPROPIONATE (DEL-BETA 0.05%) 1 APPLIC TOPICAL BID Ref 1 Patient Instructions ED Contact Dermatitis, ED General Allergic Reactions Discharge Note I have spoken with the patient and/or caregivers. I have explained the patient's condition, diagnoses and treatment plan based on the information available to me at this time. I have answered the patient's and/or caregiver's questions and addressed any concerns. The patient and/or caregivers have as good an understanding of the patient's diagnosis, condition and treatment plan as can be expected at this point. The vital signs have been stable. The patient's condition is stable and appropriate for discharge from the emergency department. The patient will pursue further outpatient evaluation with the primary care physician or other designated or consulting physician as outlined in the discharge instructions. The patient and/or caregivers are agreeable to this plan of care and follow-up instructions have been explained in detail. The patient and/or caregivers have received these instructions in written format and have expressed an understanding of the discharge instructions. The patient and/or caregivers are aware that any significant change in condition or worsening of symptoms should prompt an immediate return to this or the closest emergency department or a call to 911. Keyla Galvan 07/17/23 2331: Patient Discharge Departure Supervising Physician Note MidLv Saw Pt Alone I have reviewed the PA/BONING ROOM WORKER's note and plan of care. I was available for consultation as needed at all times during the patient's visit in the emergency department. I agree with the clinical impression, plan and disposition. Electronically Signed by Talon Cuba APRN, FISHER POUND NET OR TRAP, BICYCLE II ASSEMBLER on 07/14/23 at 2020 at 2331 RPT #:[id number] END OF REPORT [facility] 2019-04-04 14:50:00 [facility] ([facility]) Discharge Summary REPORT#:[id number] REPORT STATUS: Signed DATE:04/04/19 TIME: 1450 PATIENT: GABBIE CASTANEDA UNIT #: [id number] ROOM/BED: [place] [address] : [birth year] AGE: 78 SEX: F ATTEND: Paul Burch MD ADM AUTHOR: Micaela Aggarwal DO R3 * ALL edits or amendments must be made on the electronic/computer document * PCP PCP Discharge to: home General Information Date of admission: Observation Start Date: 04/04/19 Date of admission: 04/04/19 Date of discharge: 04/04/19 Discharge diagnosis: HTN urgency Elevated Troponin Influenza B Hospital course: Patient was admitted for hypertensive urgency as well as chest pain. Her HTN improved with her home meds and adding amlodipine. She complained of some chest pain at home that lasted shortly and Her chest pain was not present in the ED. She had two trops neg with the last one .. Dr. Bass scheduled her for outpatient stress test this Saturday 04/07. She also had some URI symtoms, and we tested her for the flu and she was found to be Flu B positive. We discharged her with a coupon code and a script for xofluza. Med Rec Med Rec Discharge meds: Continue taking these medications: VALSARTAN (DIOVAN) 320 MG TAB 320 MILLIGRAM ORAL DAILY. FUROSEMIDE (LASIX) 40 MG TAB 40 MILLIGRAM ORAL TWICE DAILY. as needed for SWELLING DULoxetine DR (CYMBALTA) 30 MG CAP.DR 30 MILLIGRAM ORAL DAILY. LEVOTHYROXINE (TIROSINT) 100 MCG CAP 100 MICROGRAM ORAL DAILY. APIXABAN (ELIQUIS) 2.5 MG TAB 2.5 MILLIGRAM ORAL TWICE DAILY. predniSONE (predniSONE) 1 MG TAB 2 MILLIGRAM ORAL DAILY. Start taking the following new medications: amLODIPine (NORVASC) 10 MG TAB 10 MILLIGRAM ORAL DAILY. Days = 28 No Refills Discharge Instructions Diet: cardiac Activity: as tolerated Additional instructions: please take the xofluza as you have the flu. also please take amlodipine 10 mg in addition to your other blood pressure medicatio n valsartan daily. do a bp log Follow-up Appointments PCP: PCP: Chele Bass MD Follow up timeframe: In 4 days Special instructions: follow up wednesdayapr 07 for stress test in am. also you will have a pcp apmt on wednesday afternoon Attending Physician: Attending Physician: Chele Bass MD at 1949 RPT #:[id number] END OF REPORT [facility] 2019-04-04 14:50:00 [facility] ([facility]) Discharge Summary REPORT#:[id number] REPORT STATUS: Signed DATE:04/04/19 TIME: 1450 PATIENT: GABBIE CASTANEDA UNIT #: [id number] ROOM/BED: [place] [address] : [birth year] AGE: 78 SEX: F ATTEND: Paul Burch MD ADM AUTHOR: Micaela Aggarwal DO R3 * ALL edits or amendments must be made on the electronic/computer document * PCP PCP Discharge to: home General Information Date of admission: Observation Start Date: 04/04/19 Date of admission: 04/04/19 Date of discharge: 04/04/19 Discharge diagnosis: HTN urgency Elevated Troponin Influenza B Hospital course: Patient was admitted for hypertensive urgency as well as chest pain. Her HTN improved with her home meds and adding amlodipine. She complained of some chest pain at home that lasted shortly and Her chest pain was not present in the ED. She had two trops neg with the last one .07. Dr. Bass scheduled her for outpatient stress test this Saturday 04/07. She also had some URI symtoms, and we tested her for the flu and she was found to be Flu B positive. We discharged her with a coupon code and a script for xofluza. Med Rec Med Rec Discharge meds: Continue taking these medications: VALSARTAN (DIOVAN) 320 MG TAB 320 MILLIGRAM ORAL DAILY. FUROSEMIDE (LASIX) 40 MG TAB 40 MILLIGRAM ORAL TWICE DAILY. as needed for SWELLING DULoxetine DR (CYMBALTA) 30 MG CAP.DR 30 MILLIGRAM ORAL DAILY. LEVOTHYROXINE (TIROSINT) 100 MCG CAP 100 MICROGRAM ORAL DAILY. APIXABAN (ELIQUIS) 2.5 MG TAB 2.5 MILLIGRAM ORAL TWICE DAILY. predniSONE (predniSONE) 1 MG TAB 2 MILLIGRAM ORAL DAILY. Start taking the following new medications: amLODIPine (NORVASC) 10 MG TAB 10 MILLIGRAM ORAL DAILY. Days = 28 No Refills Discharge Instructions Diet: cardiac Activity: as tolerated Additional instructions: please take the xofluza as you have the flu. also please take amlodipine 10 mg in addition to your other blood pressure medicatio n valsartan daily. do a bp log Follow-up Appointments PCP: PCP: Chele Bass MD Follow up timeframe: In 4 days Special instructions: follow up wednesdayapr 07 for stress test in am. also you will have a pcp apmt on wednesday afternoon Attending Physician: Attending Physician: Chele Bass MD at 1951 at 0836 RPT #:[id number] END OF REPORT [facility] 2019-04-04 02:48:00 [facility] ([facility] Hospitalist History Physical REPORT#:[id number] REPORT STATUS: Signed DATE:04/04/19 TIME: 0248 PATIENT: GABBIE CASTANEDA UNIT #: [id number] ROOM/BED: [place] [address] : [birth year] AGE: 78 SEX: F ATTEND: Paul Burch MD ADM AUTHOR: Tania Workman MD R1 * ALL edits or amendments must be made on the electronic/computer document * History of Present Illness HPI Chief complaint: high Blood pressure PCP: PCP: Chele Bass MD HPI: 78 y F with PMH of HTN, hypothyroid, Rheumatoid arthritis, h/o PE coming into the ER with complaints of high BP. She reports that this afternoon she had some mid-sternal chest discomfort which lasted about 20-25 mins, with no radiationof pain. The pain was described as indigestion, had some nausea associated with it. Denies SOB, dizziness, diaphoresis. She had a previous episode similar to this which was releived by drinking coke, so even this time she went and got a coke. On her way back she noticed that her pulses were going too fast and then slow. So she started measuring her BP at home. It was in SBP 180's so she took her old medicine which she no longer takes metoprolol. She took half a pill of the Metorprolol 100mg tablet. This did bring her heart rate down but not the BP and so she came to the ER. Currently patient denies any chest pain, diaphoresis, vision changes, headache, numbness, weakness. However she does report that her BP is high and that everybody at home including grandkids are going through viral URI and that she is coughing too. Denies fever, chills, rhinorrhea. The cough is occasionally productive of scant white sputum. In the ER: EKG did not show any acute ST segment changes. Rapid trops 0.07, 0.08. BP on presentation 228/101 History Past medical history: Reports: Arthritis (Rheumatoid, on low dose predni), Asthma, Atrial fib/flutter (hyperthyroidism, no anti-coag), COPD, GERD/gastritis, Hypertension, Dyslipidemia. Additional medical history: Gout (refuses allopurinol), panic disorder, anemia, colonoscopy 3 years ago (large polyp, to return in 3 years, Dr. Sanchez), EGD 3 years ago (Dr. Sanchez), hemorrhoids acute kidney injury HFPEF Pulmonary Embolism Past surgical history: Reports: Cholecystectomy, Hysterectomy. 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 Medication/Allergy-Vaccine Hx Home Medications: APIXABAN (ELIQUIS) 2.5 MG PO BID DULoxetine (CYMBALTA) 30 MG PO DAILY FUROSEMIDE (LASIX) 40 MG PO BID PRN SWELLING LEVOTHYROXINE (TIROSINT) 100 MCG PO DAILY predniSONE 2 MG PO DAILY VALSARTAN (DIOVAN) 320 MG PO DAILY Discontinued Medications amLODIPine (NORVASC) 10 MG PO DAILY 1800 Discontinued reason: Discontinued as per VALSARTAN (DIOVAN) 160 MG PO BID Discontinued reason: Discontinued as per MD Allergies: Coded Allergies: trimethoprim (From Bactrim) (Severe, BLISTERS 08/08/13) Sulfa (Sulfonamide Antibiotics) (Intermediate, BLISTERS 08/08/13) penicillin G (Mild, PASSESS OUT 11/09/18) codeine (Intermediate, HEADACHE 08/08/13) aspirin (Mild, UPSET STOMACH 11/09/18) iodine (VOMITING 11/09/18) PT STATES NO ALLERGY TO IODINE. HAS HAD MULTIPLE EXAMS W CONTRAST NO REPORTED REACTION. PT STATES SHE HAD LISTED IODINE ALLERGY INITIALLY BECAUSE HER MOTHER WAS ALLERGIC Review of Systems Constitutional: Denies: chills, fatigue, fever, generalized weakness. Skin: Denies: abrasion, bruising, contusion. Eyes: Denies: visual loss/blurred. ENT: Denies: ear ringing, earache. Respiratory: Reports: non productive cough, productive cough (sputum). Denies: WHITTINGTON (dyspnea on exertion), pleurisy, pleuritic pain, SOB, wheezing. Cardiovascular: Reports: edema. Denies: chest pain, orthopnea, palpitations, parox nocturnal dyspnea. GI: Denies: abdominal pain, constipation, diarrhea, GERD, melena, nausea, vomiting. : Denies: dysuria, hematuria. Musculoskeletal: Reports: arthritis, joint pain, myalgias. Neuro: Denies: bladder dysfunction, bowel dysfunction, confusion, dizziness, headache, lightheaded, vision change. Psych: Reports: anxiety, depression. Denies: agitation, confusion. Objective General VS/I O: Vital Signs: Date Time Temp Pulse Resp B/P B/P Pulse O2 O2 Flow FiO2 Mean Ox Delivery Rate 04/04 0216 64 210/95 133 99 04/04 0121 64 16 185/65 105 98 04/04 0100 60 21 216/86 129 97 04/04 0034 60 16 192/75 114 99 04/03 2330 58 18 221/88 132 99 04/03 2144 97.6 66 16 228/101 143 99 Room air 24 hour I O ending at 0700: 04/04 0700 04/03 1900 Intake Total Output Total Balance Patient 100 kg Weight Weight Estimated Measurement Method Patient Weight Weight (lb): Weight (oz): Weight (kg): 100.000 Medications: Active Meds + DC'd Last 24 Hrs Apixaban 2.5 MG BID PO Duloxetine HCl 30 MG DAILY PO Prednisone 2 MG DAILY PO Valsartan 320 MG DAILY PO Albuterol/Ipratropium 1 AMP Q6H WA NEB Levothyroxine Sodium 100 MCG DAILY 0600 PO Albuterol Sulfate 3 ML RTQ2H PRN PRN NEB (CKD) Amlodipine Besylate 5 MG Q24H PO Benzonatate 100 MG Q6H PRN PRN PO Hydralazine HCl 5 MG ONCE ONE IV (DC) Nitroglycerin 1 GM ONCE ONE TOPICAL (DC) Hydralazine HCl 5 MG ONCE ONE IV (DC) Nitroglycerin 1 INCH X1ED STA TOPICAL (CAN) Physical Exam General appearance: alert, awake, oriented, no acute distress, pleasant, conversational, mental status normal, no respiratory distress Head/Eyes: atraumatic, normal conjunctiva/sclera, normocephalic ENT: moist mucosal membranes, normal nose Neck: normal thyroid, supple/no meningismus, no bruit/NL carotids Cardiovascular: normal capillary refill, normal heart sounds, regular rate rhythm Respiratory: wheezing, clear to auscultation, no distress Abdomen: non-tender, normal bowel sounds, soft, no distention Genitourinary: no ernandez Extremities: edema, moves all, normal capillary refill Musculoskeletal: no muscle spasm 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, oriented X 3, normal speech, no motor deficits, no sensory deficits Psychiatry: normal affect, normal mood Results Findings/Data: Laboratory Tests 04/04 04/03 04/03 5543 5789 2256 Chemistry Sodium (133 - 145 MMOL/L) 141 Potassium (3.6 - 5.2 MMOL/L) 3.4 L Chloride (100 - 108 MMOL/L) 103 Carbon Dioxide (22 - 32 MMOL/L) 28 BUN (6 - 20 MG/DL) 28 H Creatinine (0.60 - 1.00 MG/DL) 1.15 H Estimated GFR (MDRD) (39 - 90) 46 Glucose (65 - 99 MG/DL) 100 H Calcium (8.7 - 10.5 MG/DL) 9.1 Magnesium (1.8 - 2.4 MG/DL) 2.1 Total Bilirubin (0.0 - 1.0 MG/DL) 0.3 AST (15 - 37 Units/L) 18 ALT (30 - 65 Units/L) 19 L Alkaline Phosphatase (50 - 136 Units/L) 106 Rapid Troponin I (0.00 - 0.08 NG/ML) 0.08 0.07 Total Protein (6.4 - 8.2 G/DL) 6.1 L Albumin (3.4 - 5.0 G/DL) 3.0 L Globulin (1.5 - 3.8 G/DL) 3.1 Albumin/Globulin Ratio (1.1 - 2.2) 1.0 L Laboratory Tests 04/03 2254 Coagulation PT (9.6 - 12.3 SECONDS) 11.5 INR 1.02 APTT (22.5 - 35.3 SECONDS) 31.6 Laboratory Tests 04/03 2254 Hematology WBC (4.80 - 10.80 x10 3/uL) 6.10 RBC (4.2 - 5.4 x10 6/uL) 4.08 L Hgb (12.0 - 16.0 G/DL) 11.6 L Hct (37 - 47 %) 37.6 MCV (81 - 99 FL) 92.2 MCH (27 - 31 PG) 28.4 MCHC (33 - 37 G/DL) 30.9 L RDW Coeff of Skylar (11.5 - 14.5 %) 16.3 H Plt Count (150 - 450 x10 3/uL) 248 MPV (7.4 - 10.4 FL) 10.8 H Neut % (Auto) (42 - 86 %) 70.9 Lymph % (Auto) (24 - 44 %) 16.6 L [place] % (Auto) (0.0 - 4.0 %) 9.7 H Eos % (Auto) (0.0 - 2.7 %) 0.8 Baso % (Auto) (0.0 - 0.5 %) 0.7 H Eos # (Auto) (0.0 - 0.5 x10 3/uL) 0.05 Baso # (Auto) (0.0 - 0.2 x10 3/uL) 0.04 Abs Immat Gran (auto) (0.00 - 0.03 x10 3/uL) 0.08 H Absolute Neuts (auto) (1.8 - 7.7 x10 3/uL) 4.33 Absolute Lymphs (auto) (1.0 - 4.8 x10 3/uL) 1.01 Absolute Monos (auto) (0.0 - 0.8 x10 3/uL) 0.59 Absolute Nucleated RBC (0.0 - 0.2 X10 3/uL) 0.0 Immature Gran % (0.0 - 2.0 %) 1.3 Nucleated RBC % (0.0 - 0.0 %) 0.0 Radiology data: Recent Impressions: RADIOLOGY - XR CHEST 1 V 04/030 Report Impression - Status: SIGNED Entered: 04/03/2019 9470 IMPRESSION: 1. No acute thoracic process. No significant change from prior exam. 2. Chronic scarring or atelectasis in the left lateral costophrenic angle. 3. Suspect underlying COPD. Impression By: [email or web address] - Nadir Morin MD [facility] Results: labs reviewed, vital signs stable, EKG personally reviewed, current med profile rev'd Diagnosis, Assessment Plan Free Text DxA P Notes Free Text DxA P Notes: Hypertensive Urgency * BP 228/101 on admission * Received NTG patch in the ER and hydralazine 5mg IVX2 * Will start Amlodipine 5mg PO daily * Resume home Valsartan at 9:00Am * Rapid trop 0.07,0.08 * Serum troponin pending * EKG shows no acute ST segment changes Upper Respiratory Infection * Patient afebrile, no rhinorrhea, only cough with scant white mucous * Tessalon pearls h/o asthma * duonebs q6H * ALbuterol neb q2hPRN CKD stage III * GFR 46, Cr1.15 - on admission, appears to be patient's baseline * Avoid nephrotic Rheumatoid arthritis - stable * Continue home med prednisone 2mg daily Hypothyroidism - stable * continue home med Levothyroxine H/o PE - stable * Continue home med Eliquis Depression * continue home cymbalta Diet: Low sodium DVT PPX: Lela, SCDs Code:Full Contatc: Collin Reyes [phone] at 0524 RPT #:[id number] END OF REPORT [facility] 2019-04-04 02:48:00 [facility] ([facility] Hospitalist History Physical REPORT#:[id number] REPORT STATUS: Signed DATE:04/04/19 TIME: 0248 PATIENT: GABBIE CASTANEDA UNIT #: [id number] ROOM/BED: [place] [id number] : 42 AGE: 78 SEX: F ATTEND: Paul Burch MD ADM AUTHOR: Tania Workman MD R1 * ALL edits or amendments must be made on the electronic/computer document * JiTania 04/04/19 0248: History of Present Illness HPI Chief complaint: high Blood pressure PCP: PCP: Chele Bass MD HPI: 78 y F with PMH of HTN, hypothyroid, Rheumatoid arthritis, h/o PE coming into the ER with complaints of high BP. She reports that this afternoon she had some mid-sternal chest discomfort which lasted about 20-25 mins, with no radiationof pain. The pain was described as indigestion, had some nausea associated with it. Denies SOB, dizziness, diaphoresis. She had a previous episode similar to this which was releived by drinking coke, so even this time she went and got a coke. On her way back she noticed that her pulses were going too fast and then slow. So she started measuring her BP at home. It was in SBP 180's so she took her old medicine which she no longer takes metoprolol. She took half a pill of the Metorprolol 100mg tablet. This did bring her heart rate down but not the BP and so she came to the ER. Currently patient denies any chest pain, diaphoresis, vision changes, headache, numbness, weakness. However she does report that her BP is high and that everybody at home including grandkids are going through viral URI and that she is coughing too. Denies fever, chills, rhinorrhea. The cough is occasionally productive of scant white sputum. In the ER: EKG did not show any acute ST segment changes. Rapid trops 0.07, 0.08. BP on presentation 228/101 History Past medical history: Reports: Arthritis (Rheumatoid, on low dose predni), Asthma, Atrial fib/flutter (hyperthyroidism, no anti-coag), COPD, GERD/gastritis, Hypertension, Dyslipidemia. Additional medical history: Gout (refuses allopurinol), panic disorder, anemia, colonoscopy 3 years ago (large polyp, to return in 3 years, Dr. Sanchez), EGD 3 years ago (Dr. Sanhcez), hemorrhoids acute kidney injury HFPEF Pulmonary Embolism Past surgical history: Reports: Cholecystectomy, Hysterectomy. 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 Medication/Allergy-Vaccine Hx Home Medications: APIXABAN (ELIQUIS) 2.5 MG PO BID DULoxetine DR (CYMBALTA) 30 MG PO DAILY FUROSEMIDE (LASIX) 40 MG PO BID PRN SWELLING LEVOTHYROXINE (TIROSINT) 100 MCG PO DAILY predniSONE 2 MG PO DAILY VALSARTAN (DIOVAN) 320 MG PO DAILY Discontinued Medications amLODIPine (NORVASC) 10 MG PO DAILY 1800 Discontinued reason: Discontinued as per MD VALSARTAN (DIOVAN) 160 MG PO BID Discontinued reason: Discontinued as per MD Allergies: Coded Allergies: trimethoprim (From Bactrim) (Severe, BLISTERS 08/08/13) Sulfa (Sulfonamide Antibiotics) (Intermediate, BLISTERS 08/08/13) penicillin G (Mild, PASSESS OUT 11/09/18) codeine (Intermediate, HEADACHE 08/08/13) aspirin (Mild, UPSET STOMACH 11/09/18) iodine (VOMITING 11/09/18) PT STATES NO ALLERGY TO IODINE. HAS HAD MULTIPLE EXAMS W CONTRAST NO REPORTED REACTION. PT STATES SHE HAD LISTED IODINE ALLERGY INITIALLY BECAUSE HER MOTHER WAS ALLERGIC Review of Systems Constitutional: Denies: chills, fatigue, fever, generalized weakness. Skin: Denies: abrasion, bruising, contusion. Eyes: Denies: visual loss/blurred. ENT: Denies: ear ringing, earache. Respiratory: Reports: non productive cough, productive cough (sputum). Denies: WHITTINGTON (dyspnea on exertion), pleurisy, pleuritic pain, SOB, wheezing. Cardiovascular: Reports: edema. Denies: chest pain, orthopnea, palpitations, parox nocturnal dyspnea. GI: Denies: abdominal pain, constipation, diarrhea, GERD, melena, nausea, vomiting. : Denies: dysuria, hematuria. Musculoskeletal: Reports: arthritis, joint pain, myalgias. Neuro: Denies: bladder dysfunction, bowel dysfunction, confusion, dizziness, headache, lightheaded, vision change. Psych: Reports: anxiety, depression. Denies: agitation, confusion. Objective General VS/I O: Vital Signs: Date Time Temp Pulse Resp B/P B/P Pulse O2 O2 Flow FiO2 Mean Ox Delivery Rate 04/04 0216 64 210/95 133 99 04/04 0121 64 16 185/65 105 98 04/04 0100 60 21 216/86 129 97 04/04 0034 60 16 192/75 114 99 04/03 2330 58 18 221/88 132 99 04/03 2144 97.6 66 16 228/101 143 99 Room air 24 hour I O ending at 0700: 04/04 0700 04/03 1900 Intake Total Output Total Balance Patient 100 kg Weight Weight Estimated Measurement Method Patient Weight Weight (lb): Weight (oz): Weight (kg): 100.000 Medications: Active Meds + DC'd Last 24 Hrs Apixaban 2.5 MG BID PO Duloxetine HCl 30 MG DAILY PO Prednisone 2 MG DAILY PO Valsartan 320 MG DAILY PO Albuterol/Ipratropium 1 AMP Q6H WA NEB Levothyroxine Sodium 100 MCG DAILY 0600 PO Albuterol Sulfate 3 ML RTQ2H PRN PRN NEB (CKD) Amlodipine Besylate 5 MG Q24H PO Benzonatate 100 MG Q6H PRN PRN PO Hydralazine HCl 5 MG ONCE ONE IV (DC) Nitroglycerin 1 GM ONCE ONE TOPICAL (DC) Hydralazine HCl 5 MG ONCE ONE IV (DC) Nitroglycerin 1 INCH X1ED STA TOPICAL (CAN) Physical Exam General appearance: alert, awake, oriented, no acute distress, pleasant, conversational, mental status normal, no respiratory distress Head/Eyes: atraumatic, normal conjunctiva/sclera, normocephalic ENT: moist mucosal membranes, normal nose Neck: normal thyroid, supple/no meningismus, no bruit/NL carotids Cardiovascular: normal capillary refill, normal heart sounds, regular rate rhythm Respiratory: wheezing, clear to auscultation, no distress Abdomen: non-tender, normal bowel sounds, soft, no distention Genitourinary: no ernandez Extremities: edema, moves all, normal capillary refill Musculoskeletal: no muscle spasm 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, oriented X 3, normal speech, no motor deficits, no sensory deficits Psychiatry: normal affect, normal mood Results Findings/Data: Laboratory Tests 10/15 04/035 2254 Chemistry Sodium (133 - 145 MMOL/L) 141 Potassium (3.6 - 5.2 MMOL/L) 3.4 L Chloride (100 - 108 MMOL/L) 103 Carbon Dioxide (22 - 32 MMOL/L) 28 BUN (6 - 20 MG/DL) 28 H Creatinine (0.60 - 1.00 MG/DL) 1.15 H Estimated GFR (MDRD) (39 - 90) 46 Glucose (65 - 99 MG/DL) 100 H Calcium (8.7 - 10.5 MG/DL) 9.1 Magnesium (1.8 - 2.4 MG/DL) 2.1 Total Bilirubin (0.0 - 1.0 MG/DL) 0.3 AST (15 - 37 Units/L) 18 ALT (30 - 65 Units/L) 19 L Alkaline Phosphatase (50 - 136 Units/L) 106 Rapid Troponin I (0.00 - 0.08 NG/ML) 0.08 0.07 Total Protein (6.4 - 8.2 G/DL) 6.1 L Albumin (3.4 - 5.0 G/DL) 3.0 L Globulin (1.5 - 3.8 G/DL) 3.1 Albumin/Globulin Ratio (1.1 - 2.2) 1.0 L Laboratory Tests 04/03 2254 Coagulation PT (9.6 - 12.3 SECONDS) 11.5 INR 1.02 APTT (22.5 - 35.3 SECONDS) 31.6 Laboratory Tests 04/03 2254 Hematology WBC (4.80 - 10.80 x10 3/uL) 6.10 RBC (4.2 - 5.4 x10 6/uL) 4.08 L Hgb (12.0 - 16.0 G/DL) 11.6 L Hct (37 - 47 %) 37.6 MCV (81 - 99 FL) 92.2 MCH (27 - 31 PG) 28.4 MCHC (33 - 37 G/DL) 30.9 L RDW Coeff of Skylar (11.5 - 14.5 %) 16.3 H Plt Count (150 - 450 x10 3/uL) 248 MPV (7.4 - 10.4 FL) 10.8 H Neut % (Auto) (42 - 86 %) 70.9 Lymph % (Auto) (24 - 44 %) 16.6 L [place] % (Auto) (0.0 - 4.0 %) 9.7 H Eos % (Auto) (0.0 - 2.7 %) 0.8 Baso % (Auto) (0.0 - 0.5 %) 0.7 H Eos # (Auto) (0.0 - 0.5 x10 3/uL) 0.05 Baso # (Auto) (0.0 - 0.2 x10 3/uL) 0.04 Abs Immat Gran (auto) (0.00 - 0.03 x10 3/uL) 0.08 H Absolute Neuts (auto) (1.8 - 7.7 x10 3/uL) 4.33 Absolute Lymphs (auto) (1.0 - 4.8 x10 3/uL) 1.01 Absolute Monos (auto) (0.0 - 0.8 x10 3/uL) 0.59 Absolute Nucleated RBC (0.0 - 0.2 X10 3/uL) 0.0 Immature Gran % (0.0 - 2.0 %) 1.3 Nucleated RBC % (0.0 - 0.0 %) 0.0 Radiology data: Recent Impressions: RADIOLOGY - XR CHEST 1 V 04/03 2220 Report Impression - Status: SIGNED Entered: 04/03/2019 8680 IMPRESSION: 1. No acute thoracic process. No significant change from prior exam. 2. Chronic scarring or atelectasis in the left lateral costophrenic angle. 3. Suspect underlying COPD. Impression By: [email or web address] - Nadir Morin MD [facility] Results: labs reviewed, vital signs stable, EKG personally reviewed, current med profile rev'd Diagnosis, Assessment Plan Free Text DxA P Notes Free Text DxA P Notes: Hypertensive Urgency * BP 228/101 on admission * Received NTG patch in the ER and hydralazine 5mg IVX2 * Will start Amlodipine 5mg PO daily * Resume home Valsartan at 9:00Am * Rapid trop 0.07,0.08 * Serum troponin pending * EKG shows no acute ST segment changes Upper Respiratory Infection * Patient afebrile, no rhinorrhea, only cough with scant white mucous * Tessalon pearls h/o asthma * duonebs q6H * ALbuterol neb q2hPRN CKD stage III * GFR 46, Cr1.15 - on admission, appears to be patient's baseline * Avoid nephrotic Rheumatoid arthritis - stable * Continue home med prednisone 2mg daily Hypothyroidism - stable * continue home med Levothyroxine H/o PE - stable * Continue home med Eliquis Depression * continue home cymbalta Diet: Low sodium DVT PPX: Eliquis, SCDs Code:Full Contatc: , Collin Castaneda [phone] Ran Walker 04/04/19 0533: Attestations Teaching Physician Attestation 1st visit w/o resident: I performed a history and physical examination of the patient and discussed with the resident. I have reviewed the resident's note and agree with the findings and plan as documented in the resident's note. Systolic BP 220's mmHg on presentation. Will lower slowly as to avoid overcorrection. Chest pain short lived, but will follow up with troponin. Albuterol nebs with cough meds given URI (likely viral). at 0524 at 0536 RPT #:[id number] END OF REPORT [facility] 2019-04-04 02:48:00 [facility] ([facility] Hospitalist History Physical REPORT#:[id number] REPORT STATUS: Signed DATE:04/04/19 TIME: 024 PATIENT: GABBIE CASTANEDA LITZY UNIT #: [id number] ROOM/BED: [place] [id number] : 42 AGE: 78 SEX: F ATTEND: Paul Burch MD ADM AUTHOR: Tania Workman MD R1 * ALL edits or amendments must be made on the electronic/computer document * Tania Workman 04/04/19 0248: History of Present Illness HPI Chief complaint: high Blood pressure PCP: PCP: Chele Bass MD HPI: 78 y F with PMH of HTN, hypothyroid, Rheumatoid arthritis, h/o PE coming into the ER with complaints of high BP. She reports that this afternoon she had some mid-sternal chest discomfort which lasted about 20-25 mins, with no radiationof pain. The pain was described as indigestion, had some nausea associated with it. Denies SOB, dizziness, diaphoresis. She had a previous episode similar to this which was releived by drinking coke, so even this time she went and got a coke. On her way back she noticed that her pulses were going too fast and then slow. So she started measuring her BP at home. It was in SBP 180's so she took her old medicine which she no longer takes metoprolol. She took half a pill of the Metorprolol 100mg tablet. This did bring her heart rate down but not the BP and so she came to the ER. Currently patient denies any chest pain, diaphoresis, vision changes, headache, numbness, weakness. However she does report that her BP is high and that everybody at home including grandkids are going through viral URI and that she is coughing too. Denies fever, chills, rhinorrhea. The cough is occasionally productive of scant white sputum. In the ER: EKG did not show any acute ST segment changes. Rapid trops 0.07, 0.08. BP on presentation 228/101 History Past medical history: Reports: Arthritis (Rheumatoid, on low dose predni), Asthma, Atrial fib/flutter (hyperthyroidism, no anti-coag), COPD, GERD/gastritis, Hypertension, Dyslipidemia. Additional medical history: Gout (refuses allopurinol), panic disorder, anemia, colonoscopy 3 years ago (large polyp, to return in 3 years, Dr. Sanchez), EGD 3 years ago (Dr. Sanchez), hemorrhoids acute kidney injury HFPEF Pulmonary Embolism Past surgical history: Reports: Cholecystectomy, Hysterectomy. 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 Medication/Allergy-Vaccine Hx Home Medications: APIXABAN (ELIQUIS) 2.5 MG PO BID DULoxetine DR (CYMBALTA) 30 MG PO DAILY FUROSEMIDE (LASIX) 40 MG PO BID PRN SWELLING LEVOTHYROXINE (TIROSINT) 100 MCG PO DAILY predniSONE 2 MG PO DAILY VALSARTAN (DIOVAN) 320 MG PO DAILY Discontinued Medications amLODIPine (NORVASC) 10 MG PO DAILY 1800 Discontinued reason: Discontinued as per VALSARTAN (DIOVAN) 160 MG PO BID Discontinued reason: Discontinued as per MD Allergies: Coded Allergies: trimethoprim (From Bactrim) (Severe, BLISTERS 08/08/13) Sulfa (Sulfonamide Antibiotics) (Intermediate, BLISTERS 08/08/13) penicillin G (Mild, PASSESS OUT 11/09/18) codeine (Intermediate, HEADACHE 08/08/13) aspirin (Mild, UPSET STOMACH 11/09/18) iodine (VOMITING 11/09/18) PT STATES NO ALLERGY TO IODINE. HAS HAD MULTIPLE EXAMS W CONTRAST NO REPORTED REACTION. PT STATES SHE HAD LISTED IODINE ALLERGY INITIALLY BECAUSE HER MOTHER WAS ALLERGIC Review of Systems Constitutional: Denies: chills, fatigue, fever, generalized weakness. Skin: Denies: abrasion, bruising, contusion. Eyes: Denies: visual loss/blurred. ENT: Denies: ear ringing, earache. Respiratory: Reports: non productive cough, productive cough (sputum). Denies: WHITTINGTON (dyspnea on exertion), pleurisy, pleuritic pain, SOB, wheezing. Cardiovascular: Reports: edema. Denies: chest pain, orthopnea, palpitations, parox nocturnal dyspnea. GI: Denies: abdominal pain, constipation, diarrhea, GERD, melena, nausea, vomiting. : Denies: dysuria, hematuria. Musculoskeletal: Reports: arthritis, joint pain, myalgias. Neuro: Denies: bladder dysfunction, bowel dysfunction, confusion, dizziness, headache, lightheaded, vision change. Psych: Reports: anxiety, depression. Denies: agitation, confusion. Objective General VS/I O: Vital Signs: Date Time Temp Pulse Resp B/P B/P Pulse O2 O2 Flow FiO2 Mean Ox Delivery Rate 04/04 0216 64 210/95 133 99 04/04 0121 64 16 185/65 105 98 04/04 0100 60 21 216/86 129 97 04/04 0034 60 16 192/75 114 99 04/03 2330 58 18 221/88 132 99 04/03 2144 97.6 66 16 228/101 143 99 Room air 24 hour I O ending at 0700: 04/04 0700 04/03 1900 Intake Total Output Total Balance Patient 100 kg Weight Weight Estimated Measurement Method Patient Weight Weight (lb): Weight (oz): Weight (kg): 100.000 Medications: Active Meds + DC'd Last 24 Hrs Apixaban 2.5 MG BID PO Duloxetine HCl 30 MG DAILY PO Prednisone 2 MG DAILY PO Valsartan 320 MG DAILY PO Albuterol/Ipratropium 1 AMP Q6H WA NEB Levothyroxine Sodium 100 MCG DAILY 0600 PO Albuterol Sulfate 3 ML RTQ2H PRN PRN NEB (CKD) Amlodipine Besylate 5 MG Q24H PO Benzonatate 100 MG Q6H PRN PRN PO Hydralazine HCl 5 MG ONCE ONE IV (DC) Nitroglycerin 1 GM ONCE ONE TOPICAL (DC) Hydralazine HCl 5 MG ONCE ONE IV (DC) Nitroglycerin 1 INCH X1ED STA TOPICAL (CAN) Physical Exam General appearance: alert, awake, oriented, no acute distress, pleasant, conversational, mental status normal, no respiratory distress Head/Eyes: atraumatic, normal conjunctiva/sclera, normocephalic ENT: moist mucosal membranes, normal nose Neck: normal thyroid, supple/no meningismus, no bruit/NL carotids Cardiovascular: normal capillary refill, normal heart sounds, regular rate rhythm Respiratory: wheezing, clear to auscultation, no distress Abdomen: non-tender, normal bowel sounds, soft, no distention Genitourinary: no ernandez Extremities: edema, moves all, normal capillary refill Musculoskeletal: no muscle spasm 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, oriented X 3, normal speech, no motor deficits, no sensory deficits Psychiatry: normal affect, normal mood Results Findings/Data: Laboratory Tests 04/04 04/03 04/03 1169 9325 2254 Chemistry Sodium (133 - 145 MMOL/L) 141 Potassium (3.6 - 5.2 MMOL/L) 3.4 L Chloride (100 - 108 MMOL/L) 103 Carbon Dioxide (22 - 32 MMOL/L) 28 BUN (6 - 20 MG/DL) 28 H Creatinine (0.60 - 1.00 MG/DL) 1.15 H Estimated GFR (MDRD) (39 - 90) 46 Glucose (65 - 99 MG/DL) 100 H Calcium (8.7 - 10.5 MG/DL) 9.1 Magnesium (1.8 - 2.4 MG/DL) 2.1 Total Bilirubin (0.0 - 1.0 MG/DL) 0.3 AST (15 - 37 Units/L) 18 ALT (30 - 65 Units/L) 19 L Alkaline Phosphatase (50 - 136 Units/L) 106 Rapid Troponin I (0.00 - 0.08 NG/ML) 0.08 0.07 Total Protein (6.4 - 8.2 G/DL) 6.1 L Albumin (3.4 - 5.0 G/DL) 3.0 L Globulin (1.5 - 3.8 G/DL) 3.1 Albumin/Globulin Ratio (1.1 - 2.2) 1.0 L Laboratory Tests 04/03 2254 Coagulation PT (9.6 - 12.3 SECONDS) 11.5 INR 1.02 APTT (22.5 - 35.3 SECONDS) 31.6 Laboratory Tests 04/03 2254 Hematology WBC (4.80 - 10.80 x10 3/uL) 6.10 RBC (4.2 - 5.4 x10 6/uL) 4.08 L Hgb (12.0 - 16.0 G/DL) 11.6 L Hct (37 - 47 %) 37.6 MCV (81 - 99 FL) 92.2 MCH (27 - 31 PG) 28.4 MCHC (33 - 37 G/DL) 30.9 L RDW Coeff of Skylar (11.5 - 14.5 %) 16.3 H Plt Count (150 - 450 x10 3/uL) 248 MPV (7.4 - 10.4 FL) 10.8 H Neut % (Auto) (42 - 86 %) 70.9 Lymph % (Auto) (24 - 44 %) 16.6 L [place] % (Auto) (0.0 - 4.0 %) 9.7 H Eos % (Auto) (0.0 - 2.7 %) 0.8 Baso % (Auto) (0.0 - 0.5 %) 0.7 H Eos # (Auto) (0.0 - 0.5 x10 3/uL) 0.05 Baso # (Auto) (0.0 - 0.2 x10 3/uL) 0.04 Abs Immat Gran (auto) (0.00 - 0.03 x10 3/uL) 0.08 H Absolute Neuts (auto) (1.8 - 7.7 x10 3/uL) 4.33 Absolute Lymphs (auto) (1.0 - 4.8 x10 3/uL) 1.01 Absolute Monos (auto) (0.0 - 0.8 x10 3/uL) 0.59 Absolute Nucleated RBC (0.0 - 0.2 X10 3/uL) 0.0 Immature Gran % (0.0 - 2.0 %) 1.3 Nucleated RBC % (0.0 - 0.0 %) 0.0 Radiology data: Recent Impressions: RADIOLOGY - XR CHEST 1 V 04/030 Report Impression - Status: SIGNED Entered: 04/03/2019 8294 IMPRESSION: 1. No acute thoracic process. No significant change from prior exam. 2. Chronic scarring or atelectasis in the left lateral costophrenic angle. 3. Suspect underlying COPD. Impression By: [email or web address] - Nadir Morin MD [facility] Results: labs reviewed, vital signs stable, EKG personally reviewed, current med profile rev'd Diagnosis, Assessment Plan Free Text DxA P Notes Free Text DxA P Notes: Hypertensive Urgency * BP 228/101 on admission * Received NTG patch in the ER and hydralazine 5mg IVX2 * Will start Amlodipine 5mg PO daily * Resume home Valsartan at 9:00Am * Rapid trop 0.07,0.08 * Serum troponin pending * EKG shows no acute ST segment changes Upper Respiratory Infection * Patient afebrile, no rhinorrhea, only cough with scant white mucous * Tessalon pearls h/o asthma * duonebs q6H * ALbuterol neb q2hPRN CKD stage III * GFR 46, Cr1.15 - on admission, appears to be patient's baseline * Avoid nephrotic Rheumatoid arthritis - stable * Continue home med prednisone 2mg daily Hypothyroidism - stable * continue home med Levothyroxine H/o PE - stable * Continue home med Eliquis Depression * continue home cymbalta Diet: Low sodium DVT PPX: Eliquis, SCDs Code:Full Contatc: , Collin Castaneda [phone] Ran Walker 04/04/19 0533: Attestations Teaching Physician Attestation 1st visit w/o resident: I performed a history and physical examination of the patient and discussed with the resident. I have reviewed the resident's note and agree with the findings and plan as documented in the resident's note. Systolic BP 220's mmHg on presentation. Will lower slowly as to avoid overcorrection. Chest pain short lived, but will follow up with troponin. Albuterol nebs with cough meds given URI (likely viral). at 0524 at 0536 at 0836 RPT #:[id number] END OF REPORT [facility] 2019-04-03 21:45:00 [facility] ([facility]) OR A CAMPUS OF [facility] EMERGENCY PROVIDER REPORT REPORT#:[id number] REPORT STATUS: Signed DATE:04/03/19 TIME: 2144 PATIENT: GABBIE CASTANEDA UNIT #: [id number] ROOM/BED: [place] [id number] AGE: 78 SEX: F PCP PHYS: Chele Bass MD SERVICE AUTHOR: Nilson Kerr MD * ALL edits or amendments must be made on the electronic/computer document * HPI-Chest Pain 40 and Over General Confirmed Patient Yes Patient Type New patient Initial Greet Date/Time 04/03/192144 Presentation Chief Complaint Chest pain Hx Obtained From Patient Sudden in Onset? Yes Onset Occurred Today Symptom Duration Since onset Progression since Onset Constant Location Substernal Quality Painful Radiation No: Does not radiate. )( Migration/Movement None Severity: Onset Moderate Severity: Current Moderate Associated Other Pt denies other symptoms Exacerbated by Nothing Relieved by Nothing Free Text HPI Notes Free Text HPI Notes 78 yr/old F with rheumatoid arthritis,HTN, gout, thyroid issues, and acid reflux presents to the ED with c/o chest pain and tightness and elevated blood pressure onset this moring. Pt states the pain feels like a dull ache and has had this pain in past. Pt states this pain is usually relieved by a coke but this time is provided no relief. Pts ates she took a valsartan today and this evening half of a metropola this evening. Portions of this section were scribed by Laura Mckeon on 04/04/19 at 0010 Risk-Chest Pain 40 and Over Risk Stratification )( Coronary Artery Disease Risk factors reviewed )( Thoracic Aortic Dissection Risk factors reviewed )( Pulmonary Embolism Risk factors reviewed )( AMI-Aspirin Aspirin Last 24 Hrs None )( HEART for MACE )( HEART for MACE Response Value History Low index of suspicion 0 ECG Interpretation Normal ECG 0 Age Age 65 or over 2 Risk Factors for CAD 3+ CAD risk factors 2 Troponin < or = to NL troponin 0 Total 4 Portions of this section were scribed by Laura Mckeon on 04/04/19 at 0010 Review of Systems ROS Statements All systems rev neg except as marked. Focused Review of Systems Constitutional Denies: Chills, Fever. Respiratory Denies: Cough, non-productive, Shortness of breath. Cardiovascular Reports: Chest pain. Denies: Palpitations. GI Denies: Nausea, Vomiting. Musculoskeletal Denies: Back pain, Neck pain. Skin Denies: Itching, Rash. Neurologic Denies: Headache, Lightheaded. Additional Review of Systems Eyes Denies: Eye pain bilat, Photophobia. Ears/Nose/Throat Denies: Nasal congestion, Sore throat. Female Denies: Dysuria, Hematuria. Portions of this section were scribed by Laura Mckeon on 04/03/19 at 2145 Past Medical History - Adult Stated Complaint HEART GOING FAST THEN SLOW UP DOWN Allergies Coded Allergies: trimethoprim (From Bactrim) (Severe, BLISTERS 08/08/13) Sulfa (Sulfonamide Antibiotics) (Intermediate, BLISTERS 08/08/13) penicillin G (Mild, PASSESS OUT 11/09/18) codeine (Intermediate, HEADACHE 08/08/13) aspirin (Mild, UPSET STOMACH 11/09/18) iodine (VOMITING 11/09/18) PT STATES NO ALLERGY TO IODINE. HAS HAD MULTIPLE EXAMS W CONTRAST NO REPORTED REACTION. PT STATES SHE HAD LISTED IODINE ALLERGY INITIALLY BECAUSE HER MOTHER WAS ALLERGIC Home Medications Reported Medications VALSARTAN (DIOVAN) 320 MG PO DAILY FUROSEMIDE (LASIX) 40 MG PO BID PRN SWELLING DULoxetine DR (CYMBALTA) 30 MG PO DAILY LEVOTHYROXINE (TIROSINT) 100 MCG PO DAILY APIXABAN (ELIQUIS) 2.5 MG PO BID predniSONE 2 MG PO DAILY Discontinued Reported Medications amLODIPine (NORVASC) 10 MG PO DAILY 1800 VALSARTAN (DIOVAN) 160 MG PO BID Review of Nursing Notes Rev avail, and agree Past Medical History: Reports: Arthritis (Rheumatoid, on low dose predni), Asthma, Atrial fib/flutter (hyperthyroidism, no anti-coag), COPD, GERD/gastritis, Hypertension, Dyslipidemia. Additional Medical History Gout (refuses allopurinol), panic disorder, anemia, colonoscopy 3 years ago (large polyp, to return in 3 years, Dr. Sanchez), EGD 3 years ago (Dr. Sanchez), hemorrhoids acute kidney injury HFPEF Pulmonary Embolism Past Surgical History: Reports: Cholecystectomy, Hysterectomy. 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 Portions of this section were scribed by Laura Mckeon on 04/04/19 at 0010 Physical Exam Vital Signs Vital Signs First Documented: Result Date Time Pulse Ox 99 04/03 2144 B/P 228/101 04/03 2144 B/P Mean 143 04/03 2144 O2 Delivery Room air 04/03 2144 Temp 36.4 04/03 2144 Pulse 66 04/03 2144 Resp 16 04/03 2144 Last Documented: Result Date Time Pulse Ox 98 04/04 121 B/P 185/65 04/04 121 B/P Mean 105 04/04 121 Pulse 64 04/04 121 Resp 16 04/04 121 O2 Delivery Room air 04/03 2144 Temp 36.4 04/03 2144 Review of Vital Signs Reviewed Focused PE General/Const General/Const Awake, Mild distress, Morbidly Obese Eyes Eyes EOMI, No nystagmus, No periorbital redness MS Neck Neck Supple, No swelling, Non-tender Resp/Chest Respiratory/Chest No respiratory distress, No rales, No rhonchi, Sticky breathe sounds Cardiovascular Cardiovascular Heart rate NL, Regular rhythm, Sticky heart sounds Abdomen/GI Abdomen/GI Soft, Non-tender, No guarding MS Back Back Inspection NL, Non-tender, No paraspinal tenderness MS Lower Extrem Lower Ext/Pelvis/MS Inspection NL, No swelling, Non-tender Skin Skin Color NL, No rash, Warm, Dry, Intact Neurologic Neurologic Oriented X3, Speech NL, No motor deficits Portions of this section were scribed by Laura Mckeon on 04/03/19 at 2230 Interpretation Diagnostics Lab Results Interpretation Results Laboratory Tests 04/03/194: [Embedded Image Not Available] Laboratory Tests: 04/043 225 Chemistry Sodium (133 - 145 MMOL/L) 141 Potassium (3.6 - 5.2 MMOL/L) 3.4 L Chloride (100 - 108 MMOL/L) 103 Carbon Dioxide (22 - 32 MMOL/L) 28 BUN (6 - 20 MG/DL) 28 H Creatinine (0.60 - 1.00 MG/DL) 1.15 H Estimated GFR (MDRD) (39 - 90) 46 Glucose (65 - 99 MG/DL) 100 H Calcium (8.7 - 10.5 MG/DL) 9.1 Magnesium (1.8 - 2.4 MG/DL) 2.1 Total Bilirubin (0.0 - 1.0 MG/DL) 0.3 AST (15 - 37 Units/L) 18 ALT (30 - 65 Units/L) 19 L Alkaline Phosphatase (50 - 136 Units/L) 106 Rapid Troponin I (0.00 - 0.08 NG/ML) 0.08 0.07 Total Protein (6.4 - 8.2 G/DL) 6.1 L Albumin (3.4 - 5.0 G/DL) 3.0 L Globulin (1.5 - 3.8 G/DL) 3.1 Albumin/Globulin Ratio (1.1 - 2.2) 1.0 L Coagulation PT (9.6 - 12.3 SECONDS) 11.5 INR 1.02 APTT (22.5 - 35.3 SECONDS) 31.6 Hematology WBC (4.80 - 10.80 x10 3/uL) 6.10 RBC (4.2 - 5.4 x10 6/uL) 4.08 L Hgb (12.0 - 16.0 G/DL) 11.6 L Hct (37 - 47 %) 37.6 MCV (81 - 99 FL) 92.2 MCH (27 - 31 PG) 28.4 MCHC (33 - 37 G/DL) 30.9 L RDW Coeff of Skylar (11.5 - 14.5 %) 16.3 H Plt Count (150 - 450 x10 3/uL) 248 MPV (7.4 - 10.4 FL) 10.8 H Neut % (Auto) (42 - 86 %) 70.9 Lymph % (Auto) (24 - 44 %) 16.6 L [place] % (Auto) (0.0 - 4.0 %) 9.7 H Eos % (Auto) (0.0 - 2.7 %) 0.8 Baso % (Auto) (0.0 - 0.5 %) 0.7 H Eos # (Auto) (0.0 - 0.5 x10 3/uL) 0.05 Baso # (Auto) (0.0 - 0.2 x10 3/uL) 0.04 Abs Immat Gran (auto) (0.00 - 0.03 x10 3/uL) 0.08 H Absolute Neuts (auto) (1.8 - 7.7 x10 3/uL) 4.33 Absolute Lymphs (auto) (1.0 - 4.8 x10 3/uL) 1.01 Absolute Monos (auto) (0.0 - 0.8 x10 3/uL) 0.59 Absolute Nucleated RBC (0.0 - 0.2 X10 3/uL) 0.0 Immature Gran % (0.0 - 2.0 %) 1.3 Nucleated RBC % (0.0 - 0.0 %) 0.0 Recent Impressions: RADIOLOGY - XR CHEST 1 V 04/030 Report Impression - Status: SIGNED Entered: 04/03/2019 8732 IMPRESSION: 1. No acute thoracic process. No significant change from prior exam. 2. Chronic scarring or atelectasis in the left lateral costophrenic angle. 3. Suspect underlying COPD. Impression By: [email or web address] - Nadir Morin MD [facility] Lab Imaging Statement Laboratory radiographic studies reviewed and considered in the medical decision-making. ECG #1 Interpretation ECG Documented in MUSE Yes Date 04/03/19 Time 7389 Interpreted by ED physician NL ECG Interpretation Normal rate, Normal sinus rhythm, No STEMI, Adequate tracing, Moderate Voltage critera for LVH Rate 63 Portions of this section were scribed by Laura Mckeon on 04/04/19 at 0010 Re-Evaluation MDM Free Text MDM Notes Free Text MDM Notes Patient was initially given 5 mg of hydralazine IV and 1 inch Nitropaste to anterior chest wall for blood pressure control and for chest pain. Patient initially blood pressure improved to the 190s systolic but then it gradually went back up again it was given a second dose of hydralazine 5 g IV x1. No aspirin given because patient is on Xarelto. Patient's blood pressure trend was reviewed and it appears that at home her blood pressures been in the 190s and is been poorly controlled ED Course Medication(s) Ordered Medication(s) Ordered: Cardiovascular Drugs Sig/Joanne Start time Last Medication Dose Route Stop Time Status Admin Hydralazine HCl 5 MG ONCE ONE 04/040 DC 04/04 IV 04/04 014 0140 Nitroglycerin 1 GM ONCE ONE 04/03 2250 DC 04/03 TOPICAL 04/03 225 2251 Hydralazine HCl 5 MG ONCE ONE 04/03 2245 DC 04/03 IV 04/03 2246 2244 Nitroglycerin 1 INCH X1ED STA 04/03 2241 CAN TOPICAL 04/03 2300 Portions of this section were scribed by Laura Mckeon on 04/03/19 at 2259 Patient Discharge Departure Vital Signs/Condition Vital Signs First Documented: Result Date Time Pulse Ox 99 04/03 2144 B/P 228/101 04/03 2144 B/P Mean 143 04/03 2144 O2 Delivery Room air 04/03 2144 Temp 36.4 04/03 2144 Pulse 66 04/03 2144 Resp 16 04/03 2144 Last Documented: Result Date Time Pulse Ox 98 04/04 012 B/P 185/65 04/04 012 B/P Mean 105 04/04 121 Pulse 64 04/04 012 Resp 16 04/04 121 O2 Delivery Room air 04/03 2144 Temp 36.4 04/03 2144 All vital signs available at the time of this entry have been reviewed. Condition Stable Clinical Impression Clinical Impression Primary Impression: Hypertensive urgency Secondary Impressions: Acute chest pain Disposition Decision Admit Admit Physician Name Paul Burch MD Admit Physician Hospitalist Request Time 0158 Request Date 04/04/19 )( Admission Accepts Yes Discharge/Care Plan Counseled Regarding Diagnosis, Lab results, Imaging studies Quality Measures BP F/U for HTN Referred for BP f/u < 4wk Smoking Cessation Screened, non user Tobacco Screening/Cessation 18 years or older, Denies tobacco use Supervising Physician Note Scribe Statement Laura Mckeon, 04/04/19 001, scribing for and in the presence of []. Signed By: Laura Mckeon, 04/04/1909 Provider Scribed Statement I personally performed the services described in this documentation and reviewed the documentation that was dictated to the scribe(s) in my presence, and it accurately records my words and actions. Nilson Kerr, 04/04/19 Portions of this section were scribed by Laura Mckeon on 04/04/19 at 0010 at 0543 RPT #:[id number] END OF REPORT [facility] 2018-11-20 21:49:00 [facility] ([facility]) OR A CAMPUS OF [facility] EMERGENCY PROVIDER REPORT REPORT#:[id number] REPORT STATUS: Signed DATE:11/20/18 TIME: 2148 PATIENT: GABBIE CASTANEDA UNIT #: [id number] ROOM/BED: AGE: 78 SEX: F PCP PHYS: Chele Bass MD SERVICE AUTHOR: Marilu Pate DO * ALL edits or amendments must be made on the electronic/computer document * HPI-Extremity Prob Lower General Confirmed Patient Yes Patient Type New patient Initial Greet Date/Time 11/20/182147 Presentation Chief Complaint RLE swelling Hx Obtained From Patient Onset Occurred Yesterday Symptom Duration Since onset, Constant Progression since Onset Constant Caused by No trauma by history Associated with Reports: Swelling. Denies: Abdominal pain, Chest pain, Fever, Loss of consciousness, Neck pain, Syncope, Weakness, Wound discharge. Associated Other Pt denies other symptoms Exacerbated by Nothing Relieved by Nothing Free Text HPI Notes Free Text HPI Notes 78 F with PMHx of HTN, hypothyroidism, HFPEF, GERD, COPD, asthma, hyperlipidemia , hysterectomy, cholecysectomy , and pulmonary embolism presents to the ED c/o RLE redness and swelling. Pt states she had a recent RLE surgery by Dr. Bustos, and believes she is starting to get cellulitis. Pt states she noticed redness and swelling, and started taking clindamycin that was not prescribed for her current sxs. Pt took one tablet at 1200 and one tablet at 1600, and the pt's states the redness has decreased since taking the medication. Pt states she had a left over prescription. Pt denies fever. Pt reports a Hx of kidney failure. Portions of this section were scribed by Higinio Jon on 11/20/18 at 2349 Review of Systems ROS Statements All systems rev neg except as marked. Focused Review of Systems Constitutional Denies: Chills, Fatigue, Fever, Weakness - generalized. Musculoskeletal Reports: Extremity swelling (RLE). Denies: Back pain, Extremity pain, Joint pain. Skin Denies: Abrasion, Abscess, Contusion. Neurologic Denies: Abnormal movement, Change LOC, Confusion, Dizziness, Focal weakness, Headache, Syncope. Additional Review of Systems Eyes Denies: Blurred bilat, Discharge bilat, Eye pain bilat. Ears/Nose/Throat Denies: Ear drainage bilat, Ear ringing bilat, Earache bilat. Respiratory Denies: Cough, non-productive, Shortness of breath, Wheezing. Cardiovascular Denies: Chest pain, Palpitations, Syncope. GI Denies: Abdominal pain, Nausea, Vomiting. Female Denies: Dysuria, Flank pain, Hematuria. Portions of this section were scribed by Higinio Jon on 11/20/18 at 2149 Past Medical History - Adult Stated Complaint KNEE PAIN Allergies Coded Allergies: trimethoprim (From Bactrim) (Severe, BLISTERS 08/08/13) Sulfa (Sulfonamide Antibiotics) (Intermediate, BLISTERS 08/08/13) penicillin G (Mild, PASSESS OUT 11/09/18) codeine (Intermediate, HEADACHE 08/08/13) aspirin (Mild, UPSET STOMACH 11/09/18) iodine (VOMITING 11/09/18) PT STATES NO ALLERGY TO IODINE. HAS HAD MULTIPLE EXAMS W CONTRAST NO REPORTED REACTION. PT STATES SHE HAD LISTED IODINE ALLERGY INITIALLY BECAUSE HER MOTHER WAS ALLERGIC Home Medications Active Scripts APIXABAN (ELIQUIS) 2.5 MG PO BID 30 Days #60 TABS Prov: 11/02/18 Reported Medications POTASSIUM CHLORIDE ER (KLOR-CON M20) 20 MEQ PO DAILY 1800 amLODIPine (NORVASC) 10 MG PO DAILY 1800 FUROSEMIDE (LASIX) 20 MG PO DAILY 1800 ASPIRIN 325 MG PO HYDROcodone/APAP (NORCO 10/325) 1 TAB PO Q6H PRN PRN PAIN OMEPRAZOLE ER (PriLOSEC) PNV/FE FUM/FA ( MULTIVITAMIN) 1 TAB PO DAILY CHOLECALCIFEROL (VITAMIN D3) (VITAMIN D3) 1,000 UNITS PO DAILY PANTOPRAZOLE DR (PROTONIX) 40 MG PO BID METOPROLOL SUCC XL (TOPROL XL) 50 MG PO BID predniSONE 1 MG PO DAILY POTASSIUM CHLORIDE ER (K-DUR) 20 MEQ PO BID FUROSEMIDE (LASIX) 40 MG PO BID HYDROXYCHLOROQUINE SULFATE (PLAQUENIL) 200 MG PO DAILY LEVOTHYROXINE (SYNTHROID) 125 MCG PO DAILY VALSARTAN (DIOVAN) 160 MG PO BID {NITROGLYCERIN} ({NITROQUICK}) 0.3 MG SL ASDIR predniSONE 3 MG PO DAILY VALSARTAN (DIOVAN) 320 MG PO DAILY ALLOPURINOL (ZYLOPRIM) 300 MG PO DAILY HYDROcodone/APAP (NORCO 10/325) 1 TAB PO TID PRN PAIN METOPROLOL SUCC XL (TOPROL XL) 100 MG PO DAILY LEVOTHYROXINE (LEVOTHROID) 100 MCG PO DAILY MULTIVITAMIN (MULTIPLE VITAMIN) 1 TAB PO DAILY traMADol (ULTRAM) 50 MG PO Q8H PRN PRN PAIN Review of Nursing Notes Rev avail, and agree Past Medical History: Reports: Arthritis (Rheumatoid, on low dose predni), Asthma, Atrial fib/flutter (hyperthyroidism, no anti-coag), COPD, GERD/gastritis, Hypertension, Dyslipidemia. Additional Medical History Gout (refuses allopurinol), panic disorder, anemia, colonoscopy 3 years ago (large polyp, to return in 3 years, Dr. Sanchez), EGD 3 years ago (Dr. Sanchez), hemorrhoids acute kidney injury HFPEF Pulmonary Embolism Past Surgical History: Reports: Cholecystectomy, Hysterectomy. 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 Portions of this section were scribed by Higinio Jon on 11/20/18 at 2149 Physical Exam Vital Signs Vital Signs First Documented: Result Date Time Pulse Ox 98 11/20 2145 B/P 114/70 11/20 2145 B/P Mean 84 11/20 2145 O2 Delivery Room air 11/20 2145 Temp 98.4 11/20 2145 Pulse 108 11/20 2145 Resp 16 11/20 2145 Last Documented: Result Date Time Pulse Ox 98 11/21 2339 B/P 114/64 11/21 2339 B/P Mean 80 11/21 2339 O2 Delivery Room air 11/21 2339 Temp 98.6 11/21 2339 Pulse 98 11/21 2339 Resp 16 11/21 2339 Review of Vital Signs Reviewed Focused PE General/Const General/Const Awake, Alert, No acute distress, Not toxic appearing Resp/Chest Respiratory/Chest Atraumatic, Breath sounds NL, Breath sounds = bilat, No respiratory distress, No rales, No rhonchi, No wheezing Cardiovascular Cardiovascular Heart rate NL, Regular rhythm, Heart sounds NL, No gallop, No murmurs, No rubs MS Lower Extrem Lower Ext/Pelvis/MS Atraumatic Text/Dict Notes erythema to RLE above the knee to the ankle, not edematous, surgical site is healing well Right Leg/Calf Erythema present (above the knee to the ankle ). MS Ankle/Foot Ankle/Foot Atraumatic, Inspection NL, Full range of motion Skin Skin Atraumatic, No rash, Warm, Dry, Intact Text/Dict Notes erythema to RLE above the knee to the ankle, not edematous, surgical site is healing well Neurologic Neurologic Oriented X3, Speech NL, No motor deficits, No sensory deficits, CN II - XII intact Additional PE MS Head Head Atraumatic, Normocephalic Eyes Eyes Atraumatic, PERRL, EOMI, No nystagmus Abdomen/GI Abdomen/GI Atraumatic, Soft, Non-tender, No guarding, No rebound Portions of this section were scribed by Higinio Jon on 11/20/18 at 2341 Interpretation Diagnostics Lab Results Interpretation Results Laboratory Tests 11/20/182236: [Embedded Image Not Available] Laboratory Tests: 11/20 2236 Chemistry Sodium (133 - 145 MMOL/L) 134 Potassium (3.6 - 5.2 MMOL/L) 4.3 Chloride (100 - 108 MMOL/L) 95 L Carbon Dioxide (22 - 32 MMOL/L) 25 BUN (6 - 20 MG/DL) 42 H Creatinine (0.60 - 1.00 MG/DL) 1.58 H Estimated GFR (MDRD) (39 - 90) 32 L Glucose (65 - 99 MG/DL) 161 H Calcium (8.7 - 10.5 MG/DL) 10.0 Hematology WBC (4.80 - 10.80 x10 3/uL) 11.88 H RBC (4.2 - 5.4 x10 6/uL) 3.90 L Hgb (12.0 - 16.0 G/DL) 11.0 L Hct (37 - 47 %) 33.9 L MCV (81 - 99 FL) 86.9 MCH (27 - 31 PG) 28.2 MCHC (33 - 37 G/DL) 32.4 L RDW Coeff of Skylar (11.5 - 14.5 %) 15.2 H Plt Count (150 - 450 x10 3/uL) 291 MPV (7.4 - 10.4 FL) 10.8 H Neut % (Auto) (42 - 86 %) 86.1 H Lymph % (Auto) (24 - 44 %) 6.1 L [place] % (Auto) (0.0 - 4.0 %) 5.5 H Eos % (Auto) (0.0 - 2.7 %) 0.1 Baso % (Auto) (0.0 - 0.5 %) 0.3 Eos # (Auto) (0.0 - 0.5 x10 3/uL) 0.01 Baso # (Auto) (0.0 - 0.2 x10 3/uL) 0.03 Abs Immat Gran (auto) (0.00 - 0.03 x10 3/uL) 0.22 H Absolute Neuts (auto) (1.8 - 7.7 x10 3/uL) 10.24 H Absolute Lymphs (auto) (1.0 - 4.8 x10 3/uL) 0.73 L Absolute Monos (auto) (0.0 - 0.8 x10 3/uL) 0.65 Absolute Nucleated RBC (0.0 - 0.2 X10 3/uL) 0.0 Immature Gran % (0.0 - 2.0 %) 1.9 Nucleated RBC % (0.0 - 0.0 %) 0.0 Lab Statement Laboratory studies reviewed and considered in the medical decision-making. Portions of this section were scribed by Higinio Jon on 11/20/18 at 2341 Patient Discharge Departure Vital Signs/Condition Vital Signs First Documented: Result Date Time Pulse Ox 98 11/20 2145 B/P 114/70 11/20 2145 B/P Mean 84 11/20 2145 O2 Delivery Room air 11/20 2145 Temp 98.4 11/20 2145 Pulse 108 11/206 Resp 16 11/20 2145 Last Documented: Result Date Time Pulse Ox 98 11/20 2340 B/P 114/64 11/20 2340 B/P Mean 80 11/21 2339 O2 Delivery Room air 11/21 2339 Temp 98.6 11/20 2340 Pulse 98 11/20 2340 Resp 16 11/20 2340 All vital signs available at the time of this entry have been reviewed. Condition Stable Clinical Impression Clinical Impression Primary Impression: Cellulitis Disposition Decision Discharge )( Discharged to Home Yes )( Time 2341 )( Date 11/20/18 Discharge/Care Plan Counseled Regarding Diagnosis, Lab results, Prescriptions, Need for follow-up, When to return to ED Prescriptions Clindamycin Prescriptions Reviewed Risks, Benefits, Alternative treatment Discharge Note I have spoken with the patient and/or caregivers. I have explained the patient's condition, diagnoses and treatment plan based on the information available to me at this time. I have answered the patient's and/or caregiver's questions and addressed any concerns. The patient and/or caregivers have as good an understanding of the patient's diagnosis, condition and treatment plan as can be expected at this point. The vital signs have been stable. The patient's condition is stable and appropriate for discharge from the emergency department. The patient will pursue further outpatient evaluation with the primary care physician or other designated or consulting physician as outlined in the discharge instructions. The patient and/or caregivers are agreeable to this plan of care and follow-up instructions have been explained in detail. The patient and/or caregivers have received these instructions in written format and have expressed an understanding of the discharge instructions. The patient and/or caregivers are aware that any significant change in condition or worsening of symptoms should prompt an immediate return to this or the closest emergency department or a call to 911. Free Text Depart Notes Free Text Depart Notes Pt will follow up with Dr. Bass tomorrow. Supervising Physician Note Scribe Statement Higinio Jon, 11/20/18 5363, scribing for and in the presence of [Dr. Pate]. Signed By: Higinio Jon, 11/20/18 1765 Provider Scribed Statement I personally performed the services described in this documentation and reviewed the documentation that was dictated to the scribe(s) in my presence, and it accurately records my words and actions. Marilu Pate, 11/21/18 Portions of this section were scribed by Higinio Jon on 11/20/18 at 6058 at 0118 RPT #:[id number] END OF REPORT [facility] 2018-11-02 14:03:00 [facility] ([facility]) Hospitalist Discharge Summary REPORT#:[id number] REPORT STATUS: Signed DATE:11/02/18 TIME: 1403 PATIENT: GABBIE CASTANEDA UNIT #: [id number] ROOM/BED: [place] [address] : 42 AGE: 78 SEX: F ATTEND: Chele Bass MD ADM AUTHOR: Jose Tom DO R1 * ALL edits or amendments must be made on the electronic/computer document * PCP PCP Discharge to: home General Information Discharge date: 11/02/18 Discharge diagnosis: 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 Bass office for treatment of SHEBA. Pt was given IV fluid while inpt. Home meds was resumed. PT had symptomatic improvement and was discharged in stable condition. Med Rec Med Rec Discharge meds: Continue taking these medications: POTASSIUM CHLORIDE ER (KLOR-CON M20) 20 MEQ TAB.SR 20 MILLIEQUIVALENT ORAL DAILY AT 1800. amLODIPine (NORVASC) 10 MG TAB 10 MILLIGRAM ORAL DAILY AT 1800. FUROSEMIDE (LASIX) 20 MG TAB 20 MILLIGRAM ORAL DAILY AT 1800. predniSONE (predniSONE) 1 MG TAB 3 MILLIGRAM ORAL DAILY. VALSARTAN (DIOVAN) 320 MG TAB 320 MILLIGRAM ORAL DAILY. ALLOPURINOL (ZYLOPRIM) 300 MG TAB 300 MILLIGRAM ORAL DAILY. HYDROcodone/APAP (NORCO 10/325) 1 TAB TAB 1 TABLET ORAL THREE TIMES A DAY. as needed for PAIN METOPROLOL SUCC XL (TOPROL XL) 100 MG TAB.SA 100 MILLIGRAM ORAL DAILY. LEVOTHYROXINE (LEVOTHROID) 100 MCG TAB 100 MICROGRAM ORAL DAILY. MULTIVITAMIN (MULTIPLE VITAMIN) 1 TAB TAB 1 TABLET ORAL DAILY. traMADol (ULTRAM) 50 MG TAB 50 MILLIGRAM ORAL EVERY 8 HR NEEDED. as needed for PAIN APIXABAN (ELIQUIS) 2.5 MG TAB 2.5 MILLIGRAM ORAL TWICE DAILY. Days = 30 Qty = 60 This prescription has been renewed Discharge Instructions Diet: cardiac Activity: as tolerated Additional instructions: Take medications as direted F/u with Dr. Bass in 1 week Follow-up Appointments PCP: PCP: Chele Bass MD Objective Physical Exam Head/Eyes: atraumatic, EOMI, PERRL Neck: full range of motion, non-tender Cardiovascular: normal capillary refill, normal heart sounds, regular rate rhythm Respiratory: aerating well, clear to auscultation Abdomen: non-tender, normal bowel sounds, soft Genitourinary: no bladder distention, no flank pain, no ernandez Extremities: decreased range of motio, edema, moves all, normal capillary refill , no calf tenderness Musculoskeletal: normal inspection, painless range of motion 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, oriented X 3, CNII-XII intact, normal speech, reflexes equal bilat Lymphatics: axilla normal, inguinal normal, neck normal Psychiatry: normal affect, normal judgment/insight, normal mood at 1215 at 0855 [facility] #:[id number] END OF REPORT [facility] 2018-11-02 05:52:00 [facility] ([facility]) Hospitalist Progress Note REPORT#:[id number] REPORT STATUS: Signed DATE:11/02/18 TIME: 05 PATIENT: GABBIE CASTANEDA UNIT #: [id number] ROOM/BED: [address] : 42 AGE: 78 SEX: F ATTEND: Chele Bass MD ADM AUTHOR: Jose Tom DO R1 * ALL edits or amendments must be made on the electronic/computer document * Subjective Chief Complaint: f/u SHEBA HPI: Pt was seen and examined at bedside. Reports that she is feeling better but still quite weak. Tolerating diet. No acute event overnight. Review of Systems Constitutional: Reports: generalized weakness. Denies: chills, fever. Skin: Denies: bruising, contusion, itching, laceration. Eyes: Denies: visual loss/blurred, itching. ENT: Denies: earache, hearing loss, sore throat. Respiratory: Denies: WHITT[place] (dyspnea on exertion), hemoptysis, SOB. Cardiovascular: Reports: [place] (dyspnea on exertion), edema. Denies: chest pain, orthopnea, palpitations. GI: Reports: nausea. Denies: abdominal pain, constipation, diarrhea, vomiting. : Denies: dysuria, flank pain, frequency (decreased), hematuria, urgency. Musculoskeletal: Reports: arthritis, extremity pain, joint pain. Heme: Denies: bleeding, bruising, petechiae. Endocrine: Denies: cold intolerance, heat intolerance, polydipsia, polyphagia, polyuria. Neuro: Denies: bladder dysfunction, change in LOC, confusion, dizziness. Psych: Denies: confusion, depression. Objective General VS/I O: Vital Signs: Date Time Temp Pulse Resp B/P B/P Pulse O2 O2 Flow FiO2 Mean Ox Delivery Rate 11/02 0329 98.1 75 18 131/62 85.0 98 Room air 11/01 2318 98.8 77 18 132/64 87.0 94 Room air 11/015 98.1 73 18 130/60 83.6 96 Room air 11/01 1602 98.2 74 16 121/66 84.2 95 Room air 11/01 1049 97.5 73 16 108/65 79.5 94 Room air 11/01 0732 97.9 66 16 102/60 74.4 93 Room air 24 hour I O ending at 0700: 11/01 1900 11/02 0700 Intake Total Output Total 800 Balance -800 Output, Urine 800 Medications: Active Meds + DC'd Last 24 Hrs Sodium Chloride 500 ML BOLUS IV (DC) Allopurinol 300 MG DAILY PO Metoprolol Succinate 100 MG DAILY PO Prednisone 3 MG DAILY PO Insulin Human Lispro MODERATE SLIDING SCALE INSULIN AC HS SUBQ Levothyroxine Sodium 100 MCG DAILY@0600 PO Dextrose 20 GM ASDIR PRN PO Dextrose/Water 25 GM ASDIR PRN IV Dextrose/Water 12.5 GM ASDIR PRN IV Apixaban 2.5 MG Q12HR PO Amlodipine Besylate 10 MG DAILY@1800 PO Lactated Ringer's 1,000 ML .[id number] IV Hydrocodone Bitart/Acetaminophen 1 TAB TID PRN PRN PO Acetaminophen 650 MG Q4H PRN PRN PO Ondansetron HCl 4 MG Q8H PRN PRN IV Physical Exam General appearance: no acute distress, pleasant, conversational Head/Eyes: atraumatic, EOMI, PERRL Neck: full range of motion, non-tender Cardiovascular: normal capillary refill, normal heart sounds, regular rate rhythm Respiratory: aerating well, clear to auscultation Abdomen: non-tender, normal bowel sounds, soft Genitourinary: no bladder distention, no flank pain, no ernandez Extremities: decreased range of motio, edema, moves all, normal capillary refill , no calf tenderness Musculoskeletal: normal inspection, painless range of motion 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, oriented X 3, CNII-XII intact, normal speech, reflexes equal bilat Lymphatics: axilla normal, inguinal normal, neck normal Psychiatry: normal affect, normal judgment/insight, normal mood Results Findings/Data: Laboratory Tests 11/01 11/01 11/01 11/02 11/02 1145 1604 1944 0223 0548 Chemistry Sodium (133 - 145 MMOL/L) 142 Potassium (3.6 - 5.2 MMOL/L) 4.5 Chloride (100 - 108 MMOL/L) 108 Carbon Dioxide (22 - 32 MMOL/L) 28 BUN (6 - 20 MG/DL) 43 H Creatinine (0.60 - 1.00 MG/DL) 1.10 H Estimated GFR (MDRD) (39 - 90) 48 Glucose (65 - 99 MG/DL) 97 POC Glucose (65 - 99 MG/DL) 111 H 123 H 145 H 92 Calcium (8.7 - 10.5 MG/DL) 9.0 Magnesium (1.8 - 2.4 MG/DL) 2.2 Total Bilirubin (0.0 - 1.0 MG/DL) 0.2 AST (15 - 37 Units/L) 18 ALT (30 - 65 Units/L) 12 L Alkaline Phosphatase (50 - 136 Units/L) 71 Total Protein (6.4 - 8.2 G/DL) 5.6 L Albumin (3.4 - 5.0 G/DL) 2.3 L Globulin (1.5 - 3.8 G/DL) 3.3 Albumin/Globulin Ratio (1.1 - 2.2) 0.7 L Laboratory Tests 11/02 0223 Hematology WBC (4.80 - 10.80 x10 3/uL) 5.03 RBC (4.2 - 5.4 x10 6/uL) 3.20 L Hgb (12.0 - 16.0 G/DL) 8.9 L Hct (37 - 47 %) 29.2 L MCV (81 - 99 FL) 91.3 MCH (27 - 31 PG) 27.8 MCHC (33 - 37 G/DL) 30.5 L RDW Coeff of Skylar (11.5 - 14.5 %) 14.6 H Plt Count (150 - 450 x10 3/uL) 304 MPV (7.4 - 10.4 FL) 10.5 H Neut % (Auto) (42 - 86 %) 48.7 Lymph % (Auto) (24 - 44 %) 34.8 [place] % (Auto) (0.0 - 4.0 %) 11.1 H Eos % (Auto) (0.0 - 2.7 %) 4.0 H Baso % (Auto) (0.0 - 0.5 %) 0.6 H Eos # (Auto) (0.0 - 0.5 x10 3/uL) 0.20 Baso # (Auto) (0.0 - 0.2 x10 3/uL) 0.03 Abs Immat Gran (auto) (0.00 - 0.03 x10 3/uL) 0.04 H Absolute Neuts (auto) (1.8 - 7.7 x10 3/uL) 2.45 Absolute Lymphs (auto) (1.0 - 4.8 x10 3/uL) 1.75 Absolute Monos (auto) (0.0 - 0.8 x10 3/uL) 0.56 Absolute Nucleated RBC (0.0 - 0.2 X10 3/uL) 0.0 Immature Gran % (0.0 - 2.0 %) 0.8 Nucleated RBC % (0.0 - 0.0 %) 0.0 Diagnosis, Assessment Plan Free Text DxA P Notes Free text DxA P notes: 78 y/o F with PMHx of DVT, history of pulmonary embolism, HFpEF, hypertension, gastroesophageal reflux disease, COPD, asthma, and hyperlipidemia sent to the ED from Dr. Bass office for treatment of SHEBA. Assessment SHEBA on CKD II, improving Prerenal azotemia, improving Dehydration, improving HFpEF, EF 65% in last ECHO, stable nd assymptomatic Rheumatoid arthritis, stable Gout, not in flair Hypothyroidism, stable PE on eliquis, stable Plan 10/31/18 CXR negative Will give 1 L bolus then IVF @ 75 UA, Renal US, Abd CT stone series, Urine lytes, Protein/Cr Resume home eliquis, metoprolol, amlodipine, prednisone, synthroid, allopurinol Will hold valsartan due to SHEBA avoid nephrotoxic meds Strict I O, fluid restriction, daily weight. 11/01/18 symptomatic improving cont IVF will give 500 cc bolus Resume home eliquis, metoprolol, amlodipine, prednisone, synthroid, allopurinol hold valsartan due to SHEBA avoid nephrotoxic meds Strict I O, fluid restriction, daily weight 11/02/18 symptomatic improving cont IVF, gentle Resume home eliquis, metoprolol, amlodipine, prednisone, synthroid, allopurinol hold valsartan due to SHEBA avoid nephrotoxic meds PT eval OOB and ambulate TID Strict I O, fluid restriction, daily weight DVT ppx: SCDs, eliquis Diet: Cardiac Full code. Dispo: discharge today at 1431 RPT #:[id number] END OF REPORT [facility] 2018-11-02 05:52:00 [facility] ([facility]) Hospitalist Progress Note REPORT#:[id number] REPORT STATUS: Signed DATE:11/02/18 TIME: 05 PATIENT: GABBIE CASTANEDA UNIT #: [id number] ROOM/BED: [id number] : 42 AGE: 78 SEX: F ATTEND: Chele Bass MD ADM AUTHOR: Jose Tom DO R1 * ALL edits or amendments must be made on the electronic/computer document * Subjective Chief Complaint: f/u SHEBA HPI: Pt was seen and examined at bedside. Reports that she is feeling better but still quite weak. Tolerating diet. No acute event overnight. Review of Systems Constitutional: Reports: generalized weakness. Denies: chills, fever. Skin: Denies: bruising, contusion, itching, laceration. Eyes: Denies: visual loss/blurred, itching. ENT: Denies: earache, hearing loss, sore throat. Respiratory: Denies: WH[place] (dyspnea on exertion), hemoptysis, SOB. Cardiovascular: Reports: [place] (dyspnea on exertion), edema. Denies: chest pain, orthopnea, palpitations. GI: Reports: nausea. Denies: abdominal pain, constipation, diarrhea, vomiting. : Denies: dysuria, flank pain, frequency (decreased), hematuria, urgency. Musculoskeletal: Reports: arthritis, extremity pain, joint pain. Heme: Denies: bleeding, bruising, petechiae. Endocrine: Denies: cold intolerance, heat intolerance, polydipsia, polyphagia, polyuria. Neuro: Denies: bladder dysfunction, change in LOC, confusion, dizziness. Psych: Denies: confusion, depression. Objective General VS/I O: Vital Signs: Date Time Temp Pulse Resp B/P B/P Pulse O2 O2 Flow FiO2 Mean Ox Delivery Rate 11/02 0329 98.1 75 18 131/62 85.0 98 Room air 11/01 2318 98.8 77 18 132/64 87.0 94 Room air 11/01 1945 98.1 73 18 130/60 83.6 96 Room air 11/01 1602 98.2 74 16 121/66 84.2 95 Room air 11/01 1049 97.5 73 16 108/65 79.5 94 Room air 11/01 0732 97.9 66 16 102/60 74.4 93 Room air 24 hour I O ending at 0700: 11/01 1900 11/02 0700 Intake Total Output Total 800 Balance -800 Output, Urine 800 Medications: Active Meds + DC'd Last 24 Hrs Sodium Chloride 500 ML BOLUS IV (DC) Allopurinol 300 MG DAILY PO Metoprolol Succinate 100 MG DAILY PO Prednisone 3 MG DAILY PO Insulin Human Lispro MODERATE SLIDING SCALE INSULIN AC HS SUBQ Levothyroxine Sodium 100 MCG DAILY@0600 PO Dextrose 20 GM ASDIR PRN PO Dextrose/Water 25 GM ASDIR PRN IV Dextrose/Water 12.5 GM ASDIR PRN IV Apixaban 2.5 MG Q12HR PO Amlodipine Besylate 10 MG DAILY@1800 PO Lactated Ringer's 1,000 ML .[id number] IV Hydrocodone Bitart/Acetaminophen 1 TAB TID PRN PRN PO Acetaminophen 650 MG Q4H PRN PRN PO Ondansetron HCl 4 MG Q8H PRN PRN IV Physical Exam General appearance: no acute distress, pleasant, conversational Head/Eyes: atraumatic, EOMI, PERRL Neck: full range of motion, non-tender Cardiovascular: normal capillary refill, normal heart sounds, regular rate rhythm Respiratory: aerating well, clear to auscultation Abdomen: non-tender, normal bowel sounds, soft Genitourinary: no bladder distention, no flank pain, no ernandez Extremities: decreased range of motio, edema, moves all, normal capillary refill , no calf tenderness Musculoskeletal: normal inspection, painless range of motion 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, oriented X 3, CNII-XII intact, normal speech, reflexes equal bilat Lymphatics: axilla normal, inguinal normal, neck normal Psychiatry: normal affect, normal judgment/insight, normal mood Results Findings/Data: Laboratory Tests 11/01 11/01 11/01 11/02 11/02 1145 1604 1944 0223 0548 Chemistry Sodium (133 - 145 MMOL/L) 142 Potassium (3.6 - 5.2 MMOL/L) 4.5 Chloride (100 - 108 MMOL/L) 108 Carbon Dioxide (22 - 32 MMOL/L) 28 BUN (6 - 20 MG/DL) 43 H Creatinine (0.60 - 1.00 MG/DL) 1.10 H Estimated GFR (MDRD) (39 - 90) 48 Glucose (65 - 99 MG/DL) 97 POC Glucose (65 - 99 MG/DL) 111 H 123 H 145 H 92 Calcium (8.7 - 10.5 MG/DL) 9.0 Magnesium (1.8 - 2.4 MG/DL) 2.2 Total Bilirubin (0.0 - 1.0 MG/DL) 0.2 AST (15 - 37 Units/L) 18 ALT (30 - 65 Units/L) 12 L Alkaline Phosphatase (50 - 136 Units/L) 71 Total Protein (6.4 - 8.2 G/DL) 5.6 L Albumin (3.4 - 5.0 G/DL) 2.3 L Globulin (1.5 - 3.8 G/DL) 3.3 Albumin/Globulin Ratio (1.1 - 2.2) 0.7 L Laboratory Tests 11/02 0223 Hematology WBC (4.80 - 10.80 x10 3/uL) 5.03 RBC (4.2 - 5.4 x10 6/uL) 3.20 L Hgb (12.0 - 16.0 G/DL) 8.9 L Hct (37 - 47 %) 29.2 L MCV (81 - 99 FL) 91.3 MCH (27 - 31 PG) 27.8 MCHC (33 - 37 G/DL) 30.5 L RDW Coeff of Skylar (11.5 - 14.5 %) 14.6 H Plt Count (150 - 450 x10 3/uL) 304 MPV (7.4 - 10.4 FL) 10.5 H Neut % (Auto) (42 - 86 %) 48.7 Lymph % (Auto) (24 - 44 %) 34.8 [place] % (Auto) (0.0 - 4.0 %) 11.1 H Eos % (Auto) (0.0 - 2.7 %) 4.0 H Baso % (Auto) (0.0 - 0.5 %) 0.6 H Eos # (Auto) (0.0 - 0.5 x10 3/uL) 0.20 Baso # (Auto) (0.0 - 0.2 x10 3/uL) 0.03 Abs Immat Gran (auto) (0.00 - 0.03 x10 3/uL) 0.04 H Absolute Neuts (auto) (1.8 - 7.7 x10 3/uL) 2.45 Absolute Lymphs (auto) (1.0 - 4.8 x10 3/uL) 1.75 Absolute Monos (auto) (0.0 - 0.8 x10 3/uL) 0.56 Absolute Nucleated RBC (0.0 - 0.2 X10 3/uL) 0.0 Immature Gran % (0.0 - 2.0 %) 0.8 Nucleated RBC % (0.0 - 0.0 %) 0.0 Diagnosis, Assessment Plan Free Text DxA P Notes Free text DxA P notes: 78 y/o F with PMHx of DVT, history of pulmonary embolism, HFpEF, hypertension, gastroesophageal reflux disease, COPD, asthma, and hyperlipidemia sent to the ED from Dr. Bass office for treatment of SHEBA. Assessment SHEBA on CKD II, improving Prerenal azotemia, improving Dehydration, improving HFpEF, EF 65% in last ECHO, stable nd assymptomatic Rheumatoid arthritis, stable Gout, not in flair Hypothyroidism, stable PE on eliquis, stable Plan 10/31/18 CXR negative Will give 1 L bolus then IVF @ 75 UA, Renal US, Abd CT stone series, Urine lytes, Protein/Cr Resume home eliquis, metoprolol, amlodipine, prednisone, synthroid, allopurinol Will hold valsartan due to SHEBA avoid nephrotoxic meds Strict I O, fluid restriction, daily weight. 11/01/18 symptomatic improving cont IVF will give 500 cc bolus Resume home eliquis, metoprolol, amlodipine, prednisone, synthroid, allopurinol hold valsartan due to SHEBA avoid nephrotoxic meds Strict I O, fluid restriction, daily weight 11/02/18 symptomatic improving cont IVF, gentle Resume home eliquis, metoprolol, amlodipine, prednisone, synthroid, allopurinol hold valsartan due to SHEBA avoid nephrotoxic meds PT eval OOB and ambulate TID Strict I O, fluid restriction, daily weight DVT ppx: SCDs, eliquis Diet: Cardiac Full code. Dispo: discharge today at 1431 at 0831 [facility] #:[id number] END OF REPORT [facility] 2018-11-01 06:05:00 [facility] ([facility]) Hospitalist Progress Note REPORT#:[id number] REPORT STATUS: Signed DATE:11/01/18 TIME: 0605 PATIENT: GABBIE CASTANEDA UNIT #: [id number] ROOM/BED: [place] [address] : 42 AGE: 78 SEX: F ATTEND: Chele Bass MD ADM AUTHOR: Jose Tom DO R1 * ALL edits or amendments must be made on the electronic/computer document * Subjective Chief Complaint: f/u SHEBA HPI: PT was seen and examined at bedside. Reports that she feeling much better. Producing a lot more urine. Tolerating diet. No acute event overnight. Review of Systems Constitutional: Reports: generalized weakness. Denies: chills, fever. Skin: Denies: bruising, contusion, itching, laceration. Eyes: Denies: visual loss/blurred, itching. ENT: Denies: earache, hearing loss, sore throat. Respiratory: Denies: [place] (dyspnea on exertion), hemoptysis, SOB. Cardiovascular: Reports: [place] (dyspnea on exertion), edema. Denies: chest pain, orthopnea, palpitations. GI: Reports: nausea. Denies: abdominal pain, constipation, diarrhea, vomiting. : Denies: dysuria, flank pain, frequency (decreased), hematuria, urgency. Musculoskeletal: Reports: arthritis, extremity pain, joint pain. Heme: Denies: bleeding, bruising, petechiae. Endocrine: Denies: cold intolerance, heat intolerance, polydipsia, polyphagia, polyuria. Neuro: Denies: bladder dysfunction, change in LOC, confusion, dizziness. Psych: Denies: confusion, depression. Objective General VS/I O: Vital Signs: Date Time Temp Pulse Resp B/P B/P Pulse O2 O2 Flow FiO2 Mean Ox Delivery Rate 11/01 0732 97.9 66 16 102/60 74.4 93 Room air 11/01 0346 97.7 94 18 106/45 65.6 95 Room air 10/31 2258 97.9 78 18 115/45 68.3 100 Room air 11/01 2011 97.8 64 16 142/62 88 97 10/31 1750 61 18 137/62 87 98 Room air 10/31 1450 97.6 69 16 112/55 74 97 24 hour I O ending at 0700: 10/31 1900 11/01 0700 Intake Total Output Total Balance Output, Emesis Patient 100.909 kg 220 kg Weight Weight Stated/Reported Stated/Reported Measurement Method Medications: Active Meds + DC'd Last 24 Hrs Sodium Chloride 500 ML BOLUS IV Allopurinol 300 MG DAILY PO Metoprolol Succinate 100 MG DAILY PO Prednisone 3 MG DAILY PO Valsartan 320 MG DAILY PO (CAN) Insulin Human Lispro MODERATE SLIDING SCALE INSULIN AC HS SUBQ Levothyroxine Sodium 100 MCG DAILY@0600 PO Dextrose 20 GM ASDIR PRN PO Dextrose/Water 25 GM ASDIR PRN IV Dextrose/Water 12.5 GM ASDIR PRN IV Apixaban 2.5 MG Q12HR PO Amlodipine Besylate 10 MG DAILY@1800 PO Lactated Ringer's 1,000 ML .[id number] IV Lactated Ringer's 1,000 ML BOLUS ONCE ONE IV (DC) Hydrocodone Bitart/Acetaminophen 1 TAB TID PRN PRN PO Acetaminophen 650 MG Q4H PRN PRN PO Ondansetron HCl 4 MG Q8H PRN PRN IV Physical Exam General appearance: no acute distress, pleasant, conversational Head/Eyes: atraumatic, EOMI, PERRL Neck: full range of motion, non-tender Cardiovascular: normal capillary refill, normal heart sounds, regular rate rhythm Respiratory: aerating well, clear to auscultation Abdomen: non-tender, normal bowel sounds, soft Genitourinary: no bladder distention, no flank pain, no ernandez Extremities: decreased range of motio, edema, moves all, normal capillary refill , no calf tenderness Musculoskeletal: normal inspection, painless range of motion 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, oriented X 3, CNII-XII intact, normal speech, reflexes equal bilat Lymphatics: axilla normal, inguinal normal, neck normal Psychiatry: normal affect, normal judgment/insight, normal mood Results Findings/Data: Laboratory Tests 10/31 11/01 11/01 1622 0402 0555 Chemistry Sodium (133 - 145 MMOL/L) 133 137 Potassium (3.6 - 5.2 MMOL/L) 5.1 4.8 Chloride (100 - 108 MMOL/L) 96 L 102 Carbon Dioxide (22 - 32 MMOL/L) 25 29 BUN (6 - 20 MG/DL) 88 H 71 H Creatinine (0.60 - 1.00 MG/DL) 2.32 H 1.58 H Estimated GFR (MDRD) (39 - 90) 20 L 32 L Glucose (65 - 99 MG/DL) 148 H 99 POC Glucose (65 - 99 MG/DL) 90 Calcium (8.7 - 10.5 MG/DL) 10.4 9.0 Magnesium (1.8 - 2.4 MG/DL) 2.6 H 2.3 Total Bilirubin (0.0 - 1.0 MG/DL) 0.4 0.2 AST (15 - 37 Units/L) 16 13 L ALT (30 - 65 Units/L) 15 L 13 L Alkaline Phosphatase (50 - 136 Units/L) 105 79 NT-Pro-B Natriuret Pep (0 - 450 PG/ML) 624 H Total Protein (6.4 - 8.2 G/DL) 8.2 6.0 L Albumin (3.4 - 5.0 G/DL) 3.5 2.4 L Globulin (1.5 - 3.8 G/DL) 4.7 H 3.6 Albumin/Globulin Ratio (1.1 - 2.2) 0.7 L 0.7 L Laboratory Tests 10/31 11/01 1531 0402 Hematology WBC (4.80 - 10.80 x10 3/uL) 9.94 6.03 RBC (4.2 - 5.4 x10 6/uL) 4.09 L 3.28 L Hgb (12.0 - 16.0 G/DL) 11.4 L 9.4 L Hct (37 - 47 %) 36.8 L 29.6 L MCV (81 - 99 FL) 90.0 90.2 MCH (27 - 31 PG) 27.9 28.7 MCHC (33 - 37 G/DL) 31.0 L 31.8 L RDW Coeff of Skylar (11.5 - 14.5 %) 14.5 14.6 H Plt Count (150 - 450 x10 3/uL) 454 H 305 MPV (7.4 - 10.4 FL) 10.8 H 10.1 Neut % (Auto) (42 - 86 %) 77.8 55.6 Lymph % (Auto) (24 - 44 %) 14.3 L 28.2 [place] % (Auto) (0.0 - 4.0 %) 6.2 H 11.6 H Eos % (Auto) (0.0 - 2.7 %) 0.4 2.7 Baso % (Auto) (0.0 - 0.5 %) 0.5 0.7 H Eos # (Auto) (0.0 - 0.5 x10 3/uL) 0.04 0.16 Baso # (Auto) (0.0 - 0.2 x10 3/uL) 0.05 0.04 Abs Immat Gran (auto) (0.00 - 0.03 x10 3/uL) 0.08 H 0.07 H Absolute Neuts (auto) (1.8 - 7.7 x10 3/uL) 7.73 H 3.36 Absolute Lymphs (auto) (1.0 - 4.8 x10 3/uL) 1.42 1.70 Absolute Monos (auto) (0.0 - 0.8 x10 3/uL) 0.62 0.70 Absolute Nucleated RBC (0.0 - 0.2 X10 3/uL) 0.0 0.0 Immature Gran % (0.0 - 2.0 %) 0.8 1.2 Nucleated RBC % (0.0 - 0.0 %) 0.0 0.0 Laboratory Tests 10/31 06 Urines Ur Spec Description Clean Catch Urine Color (YELLOW) YELLOW Urine Appearance (CLEAR) CLEAR Urine pH (5.5 - 7.0) 5.0 L Ur Specific [place] (1.001 - 1.035) 1.015 Urine Protein (NEGATIVE mg/dL) NEGATIVE Urine Glucose (UA) (NEGATIVE mg/dL) NEGATIVE Urine Ketones (NEGATIVE mg/dL) NEGATIVE Urine Blood (NEGATIVE) NEGATIVE Urine Nitrite (NEGATIVE) NEGATIVE Urine Bilirubin (NEGATIVE) 1+ H Urine Urobilinogen (NORMAL mg/dL) NORMAL Ur Leukocyte Esterase (NEGATIVE) NEGATIVE Urine WBC (<10 #/hpf) < 10 Ur Squamous Epith Cells (<100 #/lpf) 0 - 20 Urine Culture Screen Criteria not met Ur Random Creatinine (MG/DL) 93.52 28.51 U Random Total Protein (MG/DL) 22 Ur Random Sodium (MMOL/L) 22 Ur Random Potassium (MMOL/L) 14 Ur Random Chloride (MMOL/L) 28 Ur Random Urea Nitrogn (MG/DL) 559 Protein/Creatinin Ratio (< 0.2) 0.2 Urine Comment VOLUME 10-12 ML Radiology data: Recent Impressions: RADIOLOGY - XR CHEST 2 V 10/31 1545 Report Impression - Status: SIGNED Entered: 10/31/2018 1627 IMPRESSION: No evidence of acute cardiopulmonary disease. Impression By: [email or web address] - Luke Matson MD ULTRASOUND - US RETROPERITONEAL COM 10/31 1617 Report Impression - Status: SIGNED Entered: 10/31/2018 1710 Impression: [id number] kidney sizes with medical renal disease although no hydronephrosis. Small bladder. Impression By: Lois Amin MD CAT SCAN - CT ABD PELVIS W/O CONT 10/31 1640 Report Impression - Status: SIGNED Entered: 10/31/2018 1702 IMPRESSION: No stones nor obstruction. Intraluminal bladder gas bubbles.. Impression By: Lois Amin MD Diagnosis, Assessment Plan Free Text DxA P Notes Free text DxA P notes: 78 y/o F with PMHx of DVT, history of pulmonary embolism, HFpEF, hypertension, gastroesophageal reflux disease, COPD, asthma, and hyperlipidemia sent to the ED from Dr. Bass office for treatment of SHEBA. 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 09/01/18 symptomatic improving cont IVF will give 500 cc bolus Resume home eliquis, metoprolol, amlodipine, prednisone, synthroid, allopurinol hold valsartan due to SHEBA avoid nephrotoxic meds Strict I O, fluid restriction, daily weight. DVT ppx: SCDs, eliquis Diet: Cardiac Full code. Dispo: discharge tomorrow at 1436 RPT #:[id number] END OF REPORT [facility] 2018-11-01 06:05:00 [facility] ([facility]) Hospitalist Progress Note REPORT#:[id number] REPORT STATUS: Signed DATE:11/01/18 TIME: 0605 PATIENT: GABBIE CASTANEDA UNIT #: [id number] ROOM/BED: [place] [id number] : 42 AGE: 78 SEX: F ATTEND: Chele Bass MD ADM AUTHOR: Jose Tom DO R1 * ALL edits or amendments must be made on the electronic/computer document * Subjective Chief Complaint: f/u SHEBA HPI: PT was seen and examined at bedside. Reports that she feeling much better. Producing a lot more urine. Tolerating diet. No acute event overnight. Review of Systems Constitutional: Reports: generalized weakness. Denies: chills, fever. Skin: Denies: bruising, contusion, itching, laceration. Eyes: Denies: visual loss/blurred, itching. ENT: Denies: earache, hearing loss, sore throat. Respiratory: Denies: WHITT[place] (dyspnea on exertion), hemoptysis, SOB. Cardiovascular: Reports: [place] (dyspnea on exertion), edema. Denies: chest pain, orthopnea, palpitations. GI: Reports: nausea. Denies: abdominal pain, constipation, diarrhea, vomiting. : Denies: dysuria, flank pain, frequency (decreased), hematuria, urgency. Musculoskeletal: Reports: arthritis, extremity pain, joint pain. Heme: Denies: bleeding, bruising, petechiae. Endocrine: Denies: cold intolerance, heat intolerance, polydipsia, polyphagia, polyuria. Neuro: Denies: bladder dysfunction, change in LOC, confusion, dizziness. Psych: Denies: confusion, depression. Objective General VS/I O: Vital Signs: Date Time Temp Pulse Resp B/P B/P Pulse O2 O2 Flow FiO2 Mean Ox Delivery Rate 11/01 0732 97.9 66 16 102/60 74.4 93 Room air 11/01 0346 97.7 94 18 106/45 65.6 95 Room air 10/31 2258 97.9 78 18 115/45 68.3 100 Room air 11/01 2011 97.8 64 16 142/62 88 97 10/31 1750 61 18 137/62 87 98 Room air 10/31 1450 97.6 69 16 112/55 74 97 24 hour I O ending at 0700: 10/31 1900 11/01 0700 Intake Total Output Total Balance Output, Emesis Patient 100.909 kg 220 kg Weight Weight Stated/Reported Stated/Reported Measurement Method Medications: Active Meds + DC'd Last 24 Hrs Sodium Chloride 500 ML BOLUS IV Allopurinol 300 MG DAILY PO Metoprolol Succinate 100 MG DAILY PO Prednisone 3 MG DAILY PO Valsartan 320 MG DAILY PO (CAN) Insulin Human Lispro MODERATE SLIDING SCALE INSULIN AC HS SUBQ Levothyroxine Sodium 100 MCG DAILY@0600 PO Dextrose 20 GM ASDIR PRN PO Dextrose/Water 25 GM ASDIR PRN IV Dextrose/Water 12.5 GM ASDIR PRN IV Apixaban 2.5 MG Q12HR PO Amlodipine Besylate 10 MG DAILY@1800 PO Lactated Ringer's 1,000 ML .[id number] IV Lactated Ringer's 1,000 ML BOLUS ONCE ONE IV (DC) Hydrocodone Bitart/Acetaminophen 1 TAB TID PRN PRN PO Acetaminophen 650 MG Q4H PRN PRN PO Ondansetron HCl 4 MG Q8H PRN PRN IV Physical Exam General appearance: no acute distress, pleasant, conversational Head/Eyes: atraumatic, EOMI, PERRL Neck: full range of motion, non-tender Cardiovascular: normal capillary refill, normal heart sounds, regular rate rhythm Respiratory: aerating well, clear to auscultation Abdomen: non-tender, normal bowel sounds, soft Genitourinary: no bladder distention, no flank pain, no ernandez Extremities: decreased range of motio, edema, moves all, normal capillary refill , no calf tenderness Musculoskeletal: normal inspection, painless range of motion 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, oriented X 3, CNII-XII intact, normal speech, reflexes equal bilat Lymphatics: axilla normal, inguinal normal, neck normal Psychiatry: normal affect, normal judgment/insight, normal mood Results Findings/Data: Laboratory Tests 10/31 11/01 11/01 1622 0402 0555 Chemistry Sodium (133 - 145 MMOL/L) 133 137 Potassium (3.6 - 5.2 MMOL/L) 5.1 4.8 Chloride (100 - 108 MMOL/L) 96 L 102 Carbon Dioxide (22 - 32 MMOL/L) 25 29 BUN (6 - 20 MG/DL) 88 H 71 H Creatinine (0.60 - 1.00 MG/DL) 2.32 H 1.58 H Estimated GFR (MDRD) (39 - 90) 20 L 32 L Glucose (65 - 99 MG/DL) 148 H 99 POC Glucose (65 - 99 MG/DL) 90 Calcium (8.7 - 10.5 MG/DL) 10.4 9.0 Magnesium (1.8 - 2.4 MG/DL) 2.6 H 2.3 Total Bilirubin (0.0 - 1.0 MG/DL) 0.4 0.2 AST (15 - 37 Units/L) 16 13 L ALT (30 - 65 Units/L) 15 L 13 L Alkaline Phosphatase (50 - 136 Units/L) 105 79 NT-Pro-B Natriuret Pep (0 - 450 PG/ML) 624 H Total Protein (6.4 - 8.2 G/DL) 8.2 6.0 L Albumin (3.4 - 5.0 G/DL) 3.5 2.4 L Globulin (1.5 - 3.8 G/DL) 4.7 H 3.6 Albumin/Globulin Ratio (1.1 - 2.2) 0.7 L 0.7 L Laboratory Tests 10/31 11/01 1531 0402 Hematology WBC (4.80 - 10.80 x10 3/uL) 9.94 6.03 RBC (4.2 - 5.4 x10 6/uL) 4.09 L 3.28 L Hgb (12.0 - 16.0 G/DL) 11.4 L 9.4 L Hct (37 - 47 %) 36.8 L 29.6 L MCV (81 - 99 FL) 90.0 90.2 MCH (27 - 31 PG) 27.9 28.7 MCHC (33 - 37 G/DL) 31.0 L 31.8 L RDW Coeff of Skylar (11.5 - 14.5 %) 14.5 14.6 H Plt Count (150 - 450 x10 3/uL) 454 H 305 MPV (7.4 - 10.4 FL) 10.8 H 10.1 Neut % (Auto) (42 - 86 %) 77.8 55.6 Lymph % (Auto) (24 - 44 %) 14.3 L 28.2 [place] % (Auto) (0.0 - 4.0 %) 6.2 H 11.6 H Eos % (Auto) (0.0 - 2.7 %) 0.4 2.7 Baso % (Auto) (0.0 - 0.5 %) 0.5 0.7 H Eos # (Auto) (0.0 - 0.5 x10 3/uL) 0.04 0.16 Baso # (Auto) (0.0 - 0.2 x10 3/uL) 0.05 0.04 Abs Immat Gran (auto) (0.00 - 0.03 x10 3/uL) 0.08 H 0.07 H Absolute Neuts (auto) (1.8 - 7.7 x10 3/uL) 7.73 H 3.36 Absolute Lymphs (auto) (1.0 - 4.8 x10 3/uL) 1.42 1.70 Absolute Monos (auto) (0.0 - 0.8 x10 3/uL) 0.62 0.70 Absolute Nucleated RBC (0.0 - 0.2 X10 3/uL) 0.0 0.0 Immature Gran % (0.0 - 2.0 %) 0.8 1.2 Nucleated RBC % (0.0 - 0.0 %) 0.0 0.0 Laboratory Tests 10/31 0600 Urines Ur Spec Description Clean Catch Urine Color (YELLOW) YELLOW Urine Appearance (CLEAR) CLEAR Urine pH (5.5 - 7.0) 5.0 L Ur Specific [place] (1.001 - 1.035) 1.015 Urine Protein (NEGATIVE mg/dL) NEGATIVE Urine Glucose (UA) (NEGATIVE mg/dL) NEGATIVE Urine Ketones (NEGATIVE mg/dL) NEGATIVE Urine Blood (NEGATIVE) NEGATIVE Urine Nitrite (NEGATIVE) NEGATIVE Urine Bilirubin (NEGATIVE) 1+ H Urine Urobilinogen (NORMAL mg/dL) NORMAL Ur Leukocyte Esterase (NEGATIVE) NEGATIVE Urine WBC (<10 #/hpf) < 10 Ur Squamous Epith Cells (<100 #/lpf) 0 - 20 Urine Culture Screen Criteria not met Ur Random Creatinine (MG/DL) 93.52 28.51 U Random Total Protein (MG/DL) 22 Ur Random Sodium (MMOL/L) 22 Ur Random Potassium (MMOL/L) 14 Ur Random Chloride (MMOL/L) 28 Ur Random Urea Nitrogn (MG/DL) 559 Protein/Creatinin Ratio (< 0.2) 0.2 Urine Comment VOLUME 10-12 ML Radiology data: Recent Impressions: RADIOLOGY - XR CHEST 2 V 10/31 1545 Report Impression - Status: SIGNED Entered: 10/31/2018 1627 IMPRESSION: No evidence of acute cardiopulmonary disease. Impression By: [email or web address] - Luke Matson MD ULTRASOUND - US RETROPERITONEAL COM 10/31 1617 Report Impression - Status: SIGNED Entered: 10/31/2018 1710 Impression: [id number] kidney sizes with medical renal disease although no hydronephrosis. Small bladder. Impression By: Lois Amin MD CAT SCAN - CT ABD PELVIS W/O CONT 10/31 1640 Report Impression - Status: SIGNED Entered: 10/31/2018 1702 IMPRESSION: No stones nor obstruction. Intraluminal bladder gas bubbles.. Impression By: Lois Amin MD Diagnosis, Assessment Plan Free Text DxA P Notes Free text DxA P notes: 78 y/o F with PMHx of DVT, history of pulmonary embolism, HFpEF, hypertension, gastroesophageal reflux disease, COPD, asthma, and hyperlipidemia sent to the ED from Dr. Bass office for treatment of SHEBA. 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 09/01/18 symptomatic improving cont IVF will give 500 cc bolus Resume home eliquis, metoprolol, amlodipine, prednisone, synthroid, allopurinol hold valsartan due to SHEBA avoid nephrotoxic meds Strict I O, fluid restriction, daily weight. DVT ppx: SCDs, eliquis Diet: Cardiac Full code. Dispo: discharge tomorrow at 1436 at 1531 RPT #:[id number] END OF REPORT [facility] 2018-10-31 15:04:00 [facility] ([facility]) Hospitalist History Physical REPORT#:[id number] REPORT STATUS: Signed DATE:10/31/18 TIME: 1504 PATIENT: GABBIE CASTANEDA UNIT #: [id number] ROOM/BED: [place] [address] : 42 AGE: 78 SEX: F ATTEND: Chele Bass MD ADM AUTHOR: Jose Tom DO R1 * ALL edits or amendments must be made on the electronic/computer document * History of Present Illness HPI Chief complaint: Abd and back pain HPI: 78 y/o F with PMHx of DVT, history of pulmonary embolism, HFpEF, hypertension, gastroesophageal reflux disease, COPD, asthma, and hyperlipidemia sent to the ED from Dr. Bass office for treatment of SHEBA. Pt reports that she has been having worsening weakness for the last week. Associated back pain, intermittent, wax and wanes that she has been trying to manage with norco. Epigastric pain is also present. Reporst N/V/D x 1. Denies fever/chill, SOB, CP. Of note, pt was told that she had heart failure in the last admission. She was subsequently started on lasix 20 mg bedtime and told to only drink about 1 and 1 /2 glass of water daily. In the ED, vitals were stable. Labs were drawn. Pt was admitted at the request of Dr. Bass for evaluation and treatment of SHEBA. History Past medical history: Reports: Arthritis (Rheumatoid, on low dose predni), Atrial fib/flutter ( hyperthyroidism, 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 Additional medical history: Gout (refuses allopurinol), panic disorder, anemia, colonoscopy 3 years ago (large polyp, to return in 3 years, Dr. Sanchez), EGD 3 years ago (Dr. Sanchez), hemorrhoids Past surgical history: Reports: Cholecystectomy, Hysterectomy. 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 Denies: chills, fever. Skin: Denies: bruising, contusion, itching, laceration. Eyes: Denies: visual loss/blurred, itching. ENT: Denies: earache, hearing loss, sore throat. Respiratory: Denies: WHITTINGTON (dyspnea on exertion), hemoptysis, SOB. Cardiovascular: Reports: [place]ITT[place] (dyspnea on exertion), edema. Denies: chest pain, orthopnea, palpitations. GI: Reports: abdominal pain, diarrhea, nausea, vomiting. Denies: constipation. : Reports: dysuria, flank pain, frequency (decreased). Denies: hematuria, urgency. Musculoskeletal: Reports: arthritis, extremity pain, joint pain. Heme: Denies: bleeding, bruising, petechiae. Endocrine: Denies: cold intolerance, heat intolerance, polydipsia, polyphagia, polyuria. Neuro: Denies: bladder dysfunction, change in LOC, confusion, dizziness. Psych: Denies: confusion, depression. Objective General VS/I O: Vital Signs: Date Time Temp Pulse Resp B/P B/P Pulse O2 O2 Flow FiO2 Mean Ox Delivery Rate 10/31 1450 97.6 69 16 112/55 74 97 Medications: Active Meds + DC'd Last 24 Hrs Allopurinol 300 MG DAILY PO Metoprolol Succinate 100 MG DAILY PO Prednisone 3 MG DAILY PO Valsartan 320 MG DAILY PO Levothyroxine Sodium 100 MCG DAILY@0600 PO Apixaban 2.5 MG Q12HR PO Amlodipine Besylate 10 MG DAILY@1800 PO Lactated Ringer's 1,000 ML .[id number] IV Lactated Ringer's 1,000 ML BOLUS ONCE ONE IV Hydrocodone Bitart/Acetaminophen 1 TAB TID PRN PRN PO Acetaminophen 650 MG Q4H PRN PRN PO Ondansetron HCl 4 MG Q8H PRN PRN IV Physical Exam General appearance: alert, awake, oriented Head/Eyes: atraumatic, EOMI, PERRL Neck: full range of motion, non-tender Cardiovascular: normal capillary refill, normal heart sounds, regular rate rhythm Respiratory: aerating well, clear to auscultation Abdomen: tenderness, normal bowel sounds, soft Genitourinary: flank pain, no bladder distention, no ernandez Extremities: decreased range of motio, edema, moves all, normal capillary refill , no calf tenderness Musculoskeletal: normal inspection, painless range of motion 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, oriented X 3, CNII-XII intact, normal speech, reflexes equal bilat Lymphatics: axilla normal, inguinal normal, neck normal Psychiatry: normal affect, normal judgment/insight, normal mood Results Findings/Data: Laboratory Tests 10/31 1531 Hematology WBC (4.80 - 10.80 x10 3/uL) 9.94 RBC (4.2 - 5.4 x10 6/uL) 4.09 L Hgb (12.0 - 16.0 G/DL) 11.4 L Hct (37 - 47 %) 36.8 L MCV (81 - 99 FL) 90.0 MCH (27 - 31 PG) 27.9 MCHC (33 - 37 G/DL) 31.0 L RDW Coeff of Skylar (11.5 - 14.5 %) 14.5 Plt Count (150 - 450 x10 3/uL) 454 H MPV (7.4 - 10.4 FL) 10.8 H Neut % (Auto) (42 - 86 %) 77.8 Lymph % (Auto) (24 - 44 %) 14.3 L [place] % (Auto) (0.0 - 4.0 %) 6.2 H Eos % (Auto) (0.0 - 2.7 %) 0.4 Baso % (Auto) (0.0 - 0.5 %) 0.5 Eos # (Auto) (0.0 - 0.5 x10 3/uL) 0.04 Baso # (Auto) (0.0 - 0.2 x10 3/uL) 0.05 Abs Immat Gran (auto) (0.00 - 0.03 x10 3/uL) 0.08 H Absolute Neuts (auto) (1.8 - 7.7 x10 3/uL) 7.73 H Absolute Lymphs (auto) (1.0 - 4.8 x10 3/uL) 1.42 Absolute Monos (auto) (0.0 - 0.8 x10 3/uL) 0.62 Absolute Nucleated RBC (0.0 - 0.2 X10 3/uL) 0.0 Immature Gran % (0.0 - 2.0 %) 0.8 Nucleated RBC % (0.0 - 0.0 %) 0.0 Diagnosis, Assessment Plan Free Text DxA P Notes Free Text DxA P Notes: 78 y/o F with PMHx of DVT, history of pulmonary embolism, HFpEF, hypertension, gastroesophageal reflux disease, COPD, asthma, and hyperlipidemia sent to the ED from Dr. Bass office for treatment of SHEBA. 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 DVT ppx: SCDs, eliquis Diet: Cardiac Full code. at 1740 RPT #:[id number] END OF REPORT [facility] 2018-10-31 15:04:00 [facility] ([facility]) Hospitalist History Physical REPORT#:[id number] REPORT STATUS: Signed DATE:10/31/18 TIME: 1504 PATIENT: GABBIE CASTANEDA UNIT #: [id number] ROOM/BED: Y314-1 : 42 AGE: 78 SEX: F ATTEND: Chele Bass MD ADM AUTHOR: Jose Tom DO R1 * ALL edits or amendments must be made on the electronic/computer document * History of Present Illness HPI Chief complaint: Abd and back pain HPI: 78 y/o F with PMHx of DVT, history of pulmonary embolism, HFpEF, hypertension, gastroesophageal reflux disease, COPD, asthma, and hyperlipidemia sent to the ED from Dr. Bass office for treatment of SHEBA. Pt reports that she has been having worsening weakness for the last week. Associated back pain, intermittent, wax and wanes that she has been trying to manage with norco. Epigastric pain is also present. Reporst N/V/D x 1. Denies fever/chill, SOB, CP. Of note, pt was told that she had heart failure in the last admission. She was subsequently started on lasix 20 mg bedtime and told to only drink about 1 and 1 /2 glass of water daily. In the ED, vitals were stable. Labs were drawn. Pt was admitted at the request of Dr. Bass for evaluation and treatment of SHEBA. History Past medical history: Reports: Arthritis (Rheumatoid, on low dose predni), Atrial fib/flutter ( hyperthyroidism, 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 Additional medical history: Gout (refuses allopurinol), panic disorder, anemia, colonoscopy 3 years ago (large polyp, to return in 3 years, Dr. Sanchez), EGD 3 years ago (Dr. Sanchez), hemorrhoids Past surgical history: Reports: Cholecystectomy, Hysterectomy. 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 Denies: chills, fever. Skin: Denies: bruising, contusion, itching, laceration. Eyes: Denies: visual loss/blurred, itching. ENT: Denies: earache, hearing loss, sore throat. Respiratory: Denies: WHITT[place] (dyspnea on exertion), hemoptysis, SOB. Cardiovascular: Reports: WHITT[place] (dyspnea on exertion), edema. Denies: chest pain, orthopnea, palpitations. GI: Reports: abdominal pain, diarrhea, nausea, vomiting. Denies: constipation. : Reports: dysuria, flank pain, frequency (decreased). Denies: hematuria, urgency. Musculoskeletal: Reports: arthritis, extremity pain, joint pain. Heme: Denies: bleeding, bruising, petechiae. Endocrine: Denies: cold intolerance, heat intolerance, polydipsia, polyphagia, polyuria. Neuro: Denies: bladder dysfunction, change in LOC, confusion, dizziness. Psych: Denies: confusion, depression. Objective General VS/I O: Vital Signs: Date Time Temp Pulse Resp B/P B/P Pulse O2 O2 Flow FiO2 Mean Ox Delivery Rate 10/31 1450 97.6 69 16 112/55 74 97 Medications: Active Meds + DC'd Last 24 Hrs Allopurinol 300 MG DAILY PO Metoprolol Succinate 100 MG DAILY PO Prednisone 3 MG DAILY PO Valsartan 320 MG DAILY PO Levothyroxine Sodium 100 MCG DAILY@0600 PO Apixaban 2.5 MG Q12HR PO Amlodipine Besylate 10 MG DAILY@1800 PO Lactated Ringer's 1,000 ML .[id number] IV Lactated Ringer's 1,000 ML BOLUS ONCE ONE IV Hydrocodone Bitart/Acetaminophen 1 TAB TID PRN PRN PO Acetaminophen 650 MG Q4H PRN PRN PO Ondansetron HCl 4 MG Q8H PRN PRN IV Physical Exam General appearance: alert, awake, oriented Head/Eyes: atraumatic, EOMI, PERRL Neck: full range of motion, non-tender Cardiovascular: normal capillary refill, normal heart sounds, regular rate rhythm Respiratory: aerating well, clear to auscultation Abdomen: tenderness, normal bowel sounds, soft Genitourinary: flank pain, no bladder distention, no ernandez Extremities: decreased range of motio, edema, moves all, normal capillary refill , no calf tenderness Musculoskeletal: normal inspection, painless range of motion 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, oriented X 3, CNII-XII intact, normal speech, reflexes equal bilat Lymphatics: axilla normal, inguinal normal, neck normal Psychiatry: normal affect, normal judgment/insight, normal mood Results Findings/Data: Laboratory Tests 10/31 1531 Hematology WBC (4.80 - 10.80 x10 3/uL) 9.94 RBC (4.2 - 5.4 x10 6/uL) 4.09 L Hgb (12.0 - 16.0 G/DL) 11.4 L Hct (37 - 47 %) 36.8 L MCV (81 - 99 FL) 90.0 MCH (27 - 31 PG) 27.9 MCHC (33 - 37 G/DL) 31.0 L RDW Coeff of Skylar (11.5 - 14.5 %) 14.5 Plt Count (150 - 450 x10 3/uL) 454 H MPV (7.4 - 10.4 FL) 10.8 H Neut % (Auto) (42 - 86 %) 77.8 Lymph % (Auto) (24 - 44 %) 14.3 L [place] % (Auto) (0.0 - 4.0 %) 6.2 H Eos % (Auto) (0.0 - 2.7 %) 0.4 Baso % (Auto) (0.0 - 0.5 %) 0.5 Eos # (Auto) (0.0 - 0.5 x10 3/uL) 0.04 Baso # (Auto) (0.0 - 0.2 x10 3/uL) 0.05 Abs Immat Gran (auto) (0.00 - 0.03 x10 3/uL) 0.08 H Absolute Neuts (auto) (1.8 - 7.7 x10 3/uL) 7.73 H Absolute Lymphs (auto) (1.0 - 4.8 x10 3/uL) 1.42 Absolute Monos (auto) (0.0 - 0.8 x10 3/uL) 0.62 Absolute Nucleated RBC (0.0 - 0.2 X10 3/uL) 0.0 Immature Gran % (0.0 - 2.0 %) 0.8 Nucleated RBC % (0.0 - 0.0 %) 0.0 Diagnosis, Assessment Plan Free Text DxA P Notes Free Text DxA P Notes: 78 y/o F with PMHx of DVT, history of pulmonary embolism, HFpEF, hypertension, gastroesophageal reflux disease, COPD, asthma, and hyperlipidemia sent to the ED from Dr. Bass office for treatment of SHEBA. 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 DVT ppx: SCDs, eliquis Diet: Cardiac Full code. at 1740 at 1531 RPT #:[id number] END OF REPORT [facility] 2018-10-31 14:53:00 [facility] ([facility]) OR A CAMPUS OF [facility] EMERGENCY PROVIDER REPORT REPORT#:[id number] REPORT STATUS: Signed DATE:10/31/18 TIME: 1453 PATIENT: GABBIE CASTANEDA UNIT #: [id number] ROOM/BED: Y314-1 AGE: 78 SEX: F PCP PHYS: Chele Bass MD SERVICE AUTHOR: Carlo Ramirez BONING ROOM WORKER * ALL edits or amendments must be made on the electronic/computer document * Carlo Ramirez 10/31/18 5052: HPI-Back Pain 40 and Over General Confirmed Patient Yes Patient Type New patient Initial Greet Date/Time 10/31/181449 Presentation Chief Complaint Pain, lumbar, N/V/D Hx Obtained From Patient Sudden in Onset? No Onset Occurred Today Symptom Duration Since onset Progression since Onset Constant Caused by No trauma by history Location Paraspinal lumbar Quality Painful Radiation Does not radiate. Migration/Movement None Severity: Onset Mild Severity: Current Moderate Associated with Reports: Nausea, Vomiting. Denies: Hematuria, Inability to walk, Incontinence bladder, Incontinence bowel. Free Text HPI Notes Free Text HPI Notes 78 y/o female with a CC of mid back pain with n/v since AM. Was seen by her PCP and found to have dehydration with creat of 2.1. Dr Bass sent pt to ER for admission. Risk-Back Pain 40 and Over Risk Stratification )( Abdominal Aortic Aneurysm Risk factors reviewed )( Thoracic Aortic Dissection Risk factors reviewed Review of Systems ROS Statements All systems rev neg except as marked. Focused Review of Systems Constitutional Reports: Weakness - generalized. Denies: Chills, Fever. Respiratory Denies: Cough, non-productive, Shortness of breath. Cardiovascular Denies: Chest pain, Edema, Palpitations. GI Reports: Diarrhea, Nausea, Vomiting. Denies: Abdominal pain, Constipation. Past Medical History - Adult Stated Complaint ABD PAIN Allergies Coded Allergies: Sulfa (Sulfonamide Antibiotics) (Mild, BLISTERS 02/05/17) iodine (Mild, ITCHING, SCRATCHING 07/09/17) penicillin G (Mild, PASSESS OUT 07/09/17) aspirin (Mild, UPSET STOMACH 02/05/17) codeine (Mild, HEADACHE 02/05/17) Home Medications Active Scripts APIXABAN (ELIQUIS) 10 MG PO BID APIXABAN (ELIQUIS) 10 MG PO BID #8 TABS Prov: 10/21/18 APIXABAN (ELIQUIS) 2.5 MG PO BID Reported Medications POTASSIUM CHLORIDE ER (KLOR-CON M20) 20 MEQ PO DAILY 1800 amLODIPine (NORVASC) 10 MG PO DAILY 1800 FUROSEMIDE (LASIX) 20 MG PO DAILY 1800 predniSONE 3 MG PO DAILY VALSARTAN (DIOVAN) 320 MG PO DAILY ALLOPURINOL (ZYLOPRIM) 300 MG PO DAILY HYDROcodone/APAP (NORCO 10/325) 1 TAB PO TID PRN PAIN METOPROLOL SUCC XL (TOPROL XL) 100 MG PO DAILY LEVOTHYROXINE (LEVOTHROID) 100 MCG PO DAILY MULTIVITAMIN (MULTIPLE VITAMIN) 1 TAB PO DAILY traMADol (ULTRAM) 50 MG PO Q8H PRN PRN PAIN Review of Nursing Notes Rev avail, and agree Past Medical History: Reports: Arthritis (Rheumatoid, on low dose predni), Atrial fib/flutter ( hyperthyroidism, 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 Additional Medical History Gout (refuses allopurinol), panic disorder, anemia, colonoscopy 3 years ago (large polyp, to return in 3 years, Dr. Sanchez), EGD 3 years ago (Dr. Sanchez), hemorrhoids Past Surgical History: Reports: Cholecystectomy, Hysterectomy. Additional Family History Father PE 50s Brother stroke 50s Mother 60s heart disease Alcohol Use Denies EtOH use Drug Use Opiates (HYDROCODONE PRESCRIBED) Physical Exam Vital Signs Vital Signs First Documented: Result Date Time Pulse Ox 97 10/31 1450 B/P 112/55 10/31 1450 B/P Mean 74 10/31 1450 Temp 36.4 10/31 1450 Pulse 69 10/31 1450 Resp 16 10/31 1450 Last Documented: Result Date Time Pulse Ox 97 10/31 1450 B/P 112/55 10/31 1450 B/P Mean 74 10/31 1450 Temp 36.4 10/31 1450 Pulse 69 10/31 1450 Resp 16 10/31 1450 Review of Vital Signs Reviewed Focused PE General/Const General/Const Awake, Alert, No acute distress, Cooperative, Not toxic appearing Appearance/Presentation Obese. Resp/Chest Respiratory/Chest Breath sounds NL, Breath sounds = bilat, No respiratory distress, No rales, No rhonchi, No wheezing Cardiovascular Cardiovascular Heart rate NL, Regular rhythm, Heart sounds NL, No murmurs, No rubs Abdomen/GI Abdomen/GI Soft, Non-tender, No guarding, BS normoactive, No distention MS Back Back No midline vertebral tend Flank/Spine/Paraspinal Lumbar paraspinal tend. MS Lower Extrem Lower Ext/Pelvis/MS Non-tender Skin Skin Color NL, No rash, Warm, Dry, Intact, Turgor NL Neurologic Neurologic Oriented X3, Speech NL, No motor deficits, No sensory deficits Interpretation Diagnostics Lab Results Interpretation Lab Statement Laboratory studies reviewed and considered in the medical decision-making. Re-Evaluation [facility] ED Course Time 1519 Patient Course Stable Patient Discharge Departure Vital Signs/Condition Vital Signs First Documented: Result Date Time Pulse Ox 97 10/31 1450 B/P 112/55 / 1450 B/P Mean 74 10/31 1450 Temp 36.4 10/31 1450 Pulse 69 10/31 1450 Resp 16 10/31 1450 Last Documented: Result Date Time Pulse Ox 97 10/31 1450 B/P 112/55 / 1450 B/P Mean 74 10/31 1450 Temp 36.4 / 1450 Pulse 69 10/31 1450 Resp 16 10/31 1450 All vital signs available at the time of this entry have been reviewed. Condition Stable Clinical Impression Clinical Impression Primary Impression: Dehydration Secondary Impressions: SHEBA (acute kidney injury) Disposition Decision Admit Admit Physician Name Chele Bass MD Admit Physician Primary Care Physician Request Time 1500 Request Date 10/31/18 )( Admission Accepts Yes )( Accepted Time 1500 )( Accepted Date 10/31/18 Call Information agrees with eval, agrees with plan Portions of this section were scribed by Holly Anthony on 10/31/18 at 1626 Eugene Azevedo 10/31/18 1626: Physical Exam Vital Signs Vital Signs Portions of this section were scribed by Holly Anthony on 10/31/18 at 1626 Re-Evaluation [facility] Consultation Consultation Referral/Consult Name Vasquez Noel [employer] Called Hospitalist Requested Call Time 1626 Requested Call Date 10/31/18 Call Returned Call returned Call Returned Time 1627 Call Returned Date 10/31/18 Free Text Consult Notes Roslyn samuel be the admitting Dr. Portions of this section were scribed by Holly Anthony on 10/31/18 at 1626 Patient Discharge Departure Vital Signs/Condition Vital Signs Supervising Physician Note Scribe Statement Holly Anthony, 10/31/18 1627, scribing for and in the presence of [Dr. Clement] . Signed By: Holly Anthony, 10/31/18 1627 Portions of this section were scribed by Holly Anthony on 10/31/18 at 1626 at 1756 at 0705 [facility] #:[id number] END OF REPORT [facility] 2018-10-21 10:13:00 [facility] ([facility]) Discharge Summary REPORT#:[id number] REPORT STATUS: Signed DATE:10/21/18 TIME: 1013 PATIENT: GABBIE CASTANEDA UNIT #: [id number] ROOM[address]BED: [address] : [address] AGE: 78 SEX: F ATTEND: Chele Bsas MD ADM AUTHOR: Vasquez Noel DO R2 * ALL edits or amendments must be made on the electronic/computer document * PCP PCP Discharge to: home General Information Date of admission: Observation Start Date: 10/07/18 Date of admission: 10/09/18 Date of discharge: 10/21/18 Admission diagnosis: - RLE wound s/p evacuation of hematoma, excisional debridment skin and subcutaneous, and ligation of saphenous vein and branches on 09/25/18 -wound infection Discharge diagnosis: - RLE wound s/p evacuation of hematoma, excisional debridment skin and subcutaneous, and ligation of saphenous vein and branches on 09/25/18 -wound infection, with pseudomonas aeruginosa -R lower extremity cellulitis Hospital course: Pt is a 78 y/o F with PMHx of DVT, history of pulmonary embolism, hypertension, gastroesophageal reflux disease, COPD, asthma, and hyperlipidemia who presented to the ED via EMS from [place] c/o wound bleeding noted by wound care there at the facility. Patient was recently hospitalized for expanding hematoma of the R lower extremity that required surgical evacuation. On admission the patient showed signs of infection with purulent discharge from extremity. Patient was started on IV antibiotics. Wound cultures grew pseudomonas aeruginosa, and IV antibiotics were switched based on culture sensitivities. Plastic Surgery was consulted for skin graft placement to the wound. On 10/13/18 , Dr. Phelan performed a skin graft to the area. Wound care continued to see the patient and on 10/20/18 the patient's wound vac was removed. Patient did develope a R Upper extremity DVT second to midline placement. 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 The patient tolerated the medication without issue. The patient was ambulatory and outpatient wound care was set up. The patient states that she wants to leave the hospital. Outpatient follow up with her pcp was established and the patient was discharged home. Consultants: plastic surgery Pt. condition on discharge: improved, stable Med Rec Med Rec Discharge meds: Continue taking these medications: POTASSIUM CHLORIDE ER (KLOR-CON M20) 20 MEQ TAB.SR 20 MILLIEQUIVALENT ORAL DAILY AT 1800. amLODIPine (NORVASC) 10 MG TAB 10 MILLIGRAM ORAL DAILY AT 1800. FUROSEMIDE (LASIX) 20 MG TAB 20 MILLIGRAM ORAL DAILY AT 1800. predniSONE (predniSONE) 1 MG TAB 3 MILLIGRAM ORAL DAILY. VALSARTAN (DIOVAN) 320 MG TAB 320 MILLIGRAM ORAL DAILY. ALLOPURINOL (ZYLOPRIM) 300 MG TAB 300 MILLIGRAM ORAL DAILY. HYDROcodone/APAP (NORCO 10/325) 1 TAB TAB 1 TABLET ORAL THREE TIMES A DAY. as needed for PAIN METOPROLOL SUCC XL (TOPROL XL) 100 MG TAB.SA 100 MILLIGRAM ORAL DAILY. LEVOTHYROXINE (LEVOTHROID) 100 MCG TAB 100 MICROGRAM ORAL DAILY. MULTIVITAMIN (MULTIPLE VITAMIN) 1 TAB TAB 1 TABLET ORAL DAILY. traMADol (ULTRAM) 50 MG TAB 50 MILLIGRAM ORAL EVERY 8 HR NEEDED. as needed for PAIN Start taking the following new medications: APIXABAN (ELIQUIS) 5 MG TAB 10 MILLIGRAM ORAL TWICE DAILY. Qty = 8 No Refills APIXABAN (ELIQUIS) 2.5 MG TAB 2.5 MILLIGRAM ORAL TWICE DAILY. Days = 30 No Refills Discharge Instructions Diet: cardiac Activity: as tolerated Wound/dressing care: Keep wound clean and dry Additional instructions: Please follow up with your pcp in one week. Please attend [facility] outpatient wound care appointments Follow-up Appointments PCP: PCP: Chele Bass MD Objective Wound/incision: Location: R lower leg Site Condition: wound vac applied at 1623 RPT #:[id number] END OF REPORT [facility] 2018-10-21 10:13:00 [facility] ([facility]) Discharge Summary REPORT#:[id number] REPORT STATUS: Signed DATE:10/21/18 TIME: 1013 PATIENT: GABBIE CASTANEDA UNIT #: [id number] RO[address]BED: [address] : [address] AGE: 78 SEX: F ATTEND: Chele Bass MD ADM AUTHOR: Vasquez Noel DO R2 * ALL edits or amendments must be made on the electronic/computer document * PCP PCP Discharge to: home General Information Date of admission: Observation Start Date: 10/07/18 Date of admission: 10/09/18 Date of discharge: 10/21/18 Admission diagnosis: - RLE wound s/p evacuation of hematoma, excisional debridment skin and subcutaneous, and ligation of saphenous vein and branches on 09/25/18 -wound infection Discharge diagnosis: - RLE wound s/p evacuation of hematoma, excisional debridment skin and subcutaneous, and ligation of saphenous vein and branches on 09/25/18 -wound infection, with pseudomonas aeruginosa -R lower extremity cellulitis Hospital course: Pt is a 78 y/o F with PMHx of DVT, history of pulmonary embolism, hypertension, gastroesophageal reflux disease, COPD, asthma, and hyperlipidemia who presented to the ED via EMS from [place] c/o wound bleeding noted by wound care there at the facility. Patient was recently hospitalized for expanding hematoma of the R lower extremity that required surgical evacuation. On admission the patient showed signs of infection with purulent discharge from extremity. Patient was started on IV antibiotics. Wound cultures grew pseudomonas aeruginosa, and IV antibiotics were switched based on culture sensitivities. Plastic Surgery was consulted for skin graft placement to the wound. On 10/13/18 , Dr. Phelan performed a skin graft to the area. Wound care continued to see the patient and on 10/20/18 the patient's wound vac was removed. Patient did develope a R Upper extremity DVT second to midline placement. 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 The patient tolerated the medication without issue. The patient was ambulatory and outpatient wound care was set up. The patient states that she wants to leave the hospital. Outpatient follow up with her pcp was established and the patient was discharged home. Consultants: plastic surgery Pt. condition on discharge: improved, stable Med Rec Med Rec Discharge meds: Continue taking these medications: POTASSIUM CHLORIDE ER (KLOR-CON M20) 20 MEQ TAB.SR 20 MILLIEQUIVALENT ORAL DAILY AT 1800. amLODIPine (NORVASC) 10 MG TAB 10 MILLIGRAM ORAL DAILY AT 1800. FUROSEMIDE (LASIX) 20 MG TAB 20 MILLIGRAM ORAL DAILY AT 1800. predniSONE (predniSONE) 1 MG TAB 3 MILLIGRAM ORAL DAILY. VALSARTAN (DIOVAN) 320 MG TAB 320 MILLIGRAM ORAL DAILY. ALLOPURINOL (ZYLOPRIM) 300 MG TAB 300 MILLIGRAM ORAL DAILY. HYDROcodone/APAP (NORCO 10/325) 1 TAB TAB 1 TABLET ORAL THREE TIMES A DAY. as needed for PAIN METOPROLOL SUCC XL (TOPROL XL) 100 MG TAB.SA 100 MILLIGRAM ORAL DAILY. LEVOTHYROXINE (LEVOTHROID) 100 MCG TAB 100 MICROGRAM ORAL DAILY. MULTIVITAMIN (MULTIPLE VITAMIN) 1 TAB TAB 1 TABLET ORAL DAILY. traMADol (ULTRAM) 50 MG TAB 50 MILLIGRAM ORAL EVERY 8 HR NEEDED. as needed for PAIN Start taking the following new medications: APIXABAN (ELIQUIS) 5 MG TAB 10 MILLIGRAM ORAL TWICE DAILY. Qty = 8 No Refills APIXABAN (ELIQUIS) 2.5 MG TAB 2.5 MILLIGRAM ORAL TWICE DAILY. Days = 30 No Refills Discharge Instructions Diet: cardiac Activity: as tolerated Wound/dressing care: Keep wound clean and dry Additional instructions: Please follow up with your pcp in one week. Please attend al l outpatient wound care appointments Follow-up Appointments PCP: PCP: Chele Bass MD Objective Wound/incision: Location: R lower leg Site Condition: wound vac applied at 1623 at 0909 RPT #:[id number] END OF REPORT [facility] 2018-10-21 09:58:00 [facility] ([facility]) Hospitalist Progress Note REPORT#:[id number] REPORT STATUS: Signed DATE:10/21/18 TIME: 09 PATIENT: GABBIE CASTANEDA UNIT #: [id number] [address]OM[address]ED: [address] : [address] AGE: 78 SEX: F ATTEND: Chele Bass MD ADM AUTHOR: Vasquez Noel DO R2 * ALL edits or amendments must be made on the electronic/computer document * Subjective Chief Complaint: RLE bleeding HPI: Patient is feeling much better, would like to leave the hospital Review of Systems Constitutional: Denies: chills, fever. Skin: Denies: rash, swelling. Eyes: Denies: visual loss/blurred, photophobia. ENT: Denies: throat pain, throat swelling. Respiratory: Denies: SOB, wheezing. Cardiovascular: Denies: chest pain, [place] (dyspnea on exertion). GI: Denies: abdominal pain, nausea, vomiting. : Denies: dysuria, flank pain. Musculoskeletal: Reports: extremity pain. Denies: extremity swelling. Neuro: Denies: change in LOC, syncope. Objective General VS/I O: Vital Signs: Date Time Temp Pulse Resp B/P B/P Pulse O2 O2 Flow FiO2 Mean Ox Delivery Rate 10/21 0825 99.0 68 14 117/71 86.5 95 Room air 10/21 0420 97.7 71 15 131/67 88.3 94 Room air 10/20 2325 97.3 65 16 127/62 83.8 90 Room air 10/20 1938 97.7 62 18 121/66 84.0 92 Room air 10/20 1559 97.7 65 18 123/63 83.1 94 Room air / 1559 97.7 65 18 123/63 83.1 94 Room air 10/20 1148 98.4 57 18 117/62 80.6 93 Room air 24 hour I O ending at 0700: 10/21 0700 10/20 1900 Intake Total 100 500 Output Total Balance 100 500 Intake, Oral 100 500 Number Voids 4 Patient 104.9 kg Weight Weight Bed scale Measurement Method Medications: Active Meds + DC'd Last 24 Hrs Apixaban 5 MG Q12HR PO Hydrocodone Bitart/Acetaminophen 1 TAB Q6H PRN PRN PO Apixaban 10 MG Q12HR PO (CKD) Fluconazole 100 MG DAILY PO Sodium Biphosphate/Sodium Phosphate 1 EACH DAILY PRN PRN RECTAL (CKD) Bisacodyl 10 MG DAILY PRN PO Bisacodyl 10 MG DAILY PRN RECTAL Ciprofloxacin HCl 500 MG BID PO Docusate Sodium 100 MG BID PRN PRN PO Magnesium Hydroxide 30 ML Q12H PRN PRN PO Morphine Sulfate 4 MG ONCE PRN IV Sodium Hypochlorite 473 ML DAILY TOPICAL (DC) Potassium Chloride 20 MEQ 1800 PO Metoprolol Succinate 100 MG DAILY PO Valsartan 320 MG DAILY PO Levothyroxine Sodium 100 MCG DAILY@0600 PO Insulin Human Lispro MILD SLIDING SCALE (Thin, NPO, sensitive) AC HS SUBQ Dextrose 20 GM ASDIR PRN PO Dextrose/Water 25 GM ASDIR PRN IV Dextrose/Water 12.5 GM ASDIR PRN IV Amlodipine Besylate 10 MG 1800 PO Famotidine 20 MG Q24H PO Furosemide 20 MG 1800 PO Tramadol HCl 50 MG Q8H PRN PRN PO Acetaminophen 650 MG Q4H PRN PRN PO Hydralazine HCl 10 MG Q6H PRN PRN IV Ondansetron HCl 4 MG Q8H PRN PRN IV Physical Exam General appearance: alert, awake, oriented Head/Eyes: atraumatic, normocephalic Neck: no JVD, no masses or swelling Cardiovascular: normal heart sounds, regular rate rhythm, no murmur Respiratory: aerating well, clear to auscultation, no distress Abdomen: obese, non-tender, normal bowel sounds, soft, no guarding Extremities: moves all, no cyanosis 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 Skin: normal temperature Wound/incision: Location: R lower leg Site Condition: dressing clean dry, dressing intact Psychiatry: normal affect, normal judgment/insight, normal mood Results Findings/Data: Laboratory Tests 10/21 10/21 10/21 10/20 10/20 1015 0559 0243 1939 1634 Chemistry Sodium (133 - 145 MMOL/L) 141 Potassium (3.6 - 5.2 MMOL/L) 4.5 Chloride (100 - 108 MMOL/L) 105 Carbon Dioxide (22 - 32 MMOL/L) 29 BUN (6 - 20 MG/DL) 34 H Creatinine (0.60 - 1.00 MG/DL) 1.55 H Estimated GFR (MDRD) (39 - 90) 33 L Glucose (65 - 99 MG/DL) 104 H POC Glucose (65 - 99 MG/DL) 100 H 81 113 H 111 H Calcium (8.7 - 10.5 MG/DL) 8.9 Magnesium (1.8 - 2.4 MG/DL) 2.3 Total Bilirubin (0.0 - 1.0 MG/DL) 0.3 AST (15 - 37 Units/L) 18 ALT (30 - 65 Units/L) 17 L Alkaline Phosphatase (50 - 136 93 Units/L) Total Protein (6.4 - 8.2 G/DL) 5.9 L Albumin (3.4 - 5.0 G/DL) 2.4 L Globulin (1.5 - 3.8 G/DL) 3.5 Albumin/Globulin Ratio (1.1 - 2.2) 0.7 L Laboratory Tests 10/21 0243 Hematology WBC (4.80 - 10.80 x10 3/uL) 9.13 RBC (4.2 - 5.4 x10 6/uL) 3.55 L Hgb (12.0 - 16.0 G/DL) 10.1 L Hct (37 - 47 %) 33.1 L MCV (81 - 99 FL) 93.2 MCH (27 - 31 PG) 28.5 MCHC (33 - 37 G/DL) 30.5 L RDW Coeff of Skylar (11.5 - 14.5 %) 14.8 H Plt Count (150 - 450 x10 3/uL) 318 MPV (7.4 - 10.4 FL) 10.4 Neut % (Auto) (42 - 86 %) 65.5 Lymph % (Auto) (24 - 44 %) 17.2 L [place] % (Auto) (0.0 - 4.0 %) 10.5 H Eos % (Auto) (0.0 - 2.7 %) 4.2 H Baso % (Auto) (0.0 - 0.5 %) 0.8 H Eos # (Auto) (0.0 - 0.5 x10 3/uL) 0.38 Baso # (Auto) (0.0 - 0.2 x10 3/uL) 0.07 Abs Immat Gran (auto) (0.00 - 0.03 x10 3/uL) 0.16 H Absolute Neuts (auto) (1.8 - 7.7 x10 3/uL) 5.99 Absolute Lymphs (auto) (1.0 - 4.8 x10 3/uL) 1.57 Absolute Monos (auto) (0.0 - 0.8 x10 3/uL) 0.96 H Absolute Nucleated RBC (0.0 - 0.2 X10 3/uL) 0.0 Immature Gran % (0.0 - 2.0 %) 1.8 Nucleated RBC % (0.0 - 0.0 %) 0.0 Diagnosis, Assessment Plan Hospital course to date: Assessment: - RLE wound with new purulent cellulitis, pseudomonas Aeuruginos infection sensitive to Cipro s/p evacuation of hematoma, excisional debridment skin and subcutaneous, and ligation of saphenous vein and branches on 09/25/[address] Taylor as well as washout R medial calf wound and wound vac on 09/27/[address] Taylor. Wound appeared to be infected with significant amt of yellow purulent discharge seen in wound. Wound vac now in place On 10/13/18 PROCEDURE PERFORMED: Dissection with excision and split-thickness skin grafting. OPERATING SURGEON: Akash Phelan MD - Hx of DVT and pulmonary embolism, not on anticoagulation due to recent hematoma.-> eliquis started -Right upper extremity DVT - Hypertension, stable BP - Gastroesophageal reflux disease, controlled - COPD, not in acute exacerbation - Asthma, not in acute exacerbation - Hyperlipidemia, clinically stable - Chronic Anemia, pt's H/H on admission 10.5; was 10.2 on 09/30/18 upon d/c - Hypothyroidism, clinically stable - IFG. HA1C 5.9 - RA on low dose prednisone, chronic pain - Gout Plan - Monitor H/H closely. - continue Cipro -> DC today -Plastic surgery consulted -> Skin graft placed on 10/13/18 - Pain management - Home BP medication regimen - Continue home thyroid supplementation regimen - Mild SSI regimen. - PT/PT wound care -CM for SNF - CHF EDUCATION - DAILY WEIGHTS AND STRICT I/O - warm compress TID -Difucan for symptoms of yeast infection -> DC today -Eliquis started DISPOSITION: -Wound vac removed yesterday, outpatient wound care is set up and the patient has follow appointments scheduled, she will be discharged on eliquis and told to discontinue her home hectorrelotilia Consultants: customs compliance specialist: Dr. Christy at 1055 RPT #:[id number] END OF REPORT [facility] 2018-10-21 09:58:00 [facility] ([facility]) Hospitalist Progress Note REPORT#:[id number] REPORT STATUS: Signed DATE:10/21/18 TIME: 09 PATIENT: GABBIE CASTANEDA UNIT #: [id number] [facility] AGE: 78 SEX: F ATTEND: Chele Bass MD ADM AUTHOR: Vasquez Noel DO R2 * ALL edits or amendments must be made on the electronic/computer document * Subjective Chief Complaint: RLE bleeding HPI: Patient is feeling much better, would like to leave the hospital Review of Systems Constitutional: Denies: chills, fever. Skin: Denies: rash, swelling. Eyes: Denies: visual loss/blurred, photophobia. ENT: Denies: throat pain, throat swelling. Respiratory: Denies: SOB, wheezing. Cardiovascular: Denies: chest pain, [place] (dyspnea on exertion). GI: Denies: abdominal pain, nausea, vomiting. : Denies: dysuria, flank pain. Musculoskeletal: Reports: extremity pain. Denies: extremity swelling. Neuro: Denies: change in LOC, syncope. Objective General VS/I O: Vital Signs: Date Time Temp Pulse Resp B/P B/P Pulse O2 O2 Flow FiO2 Mean Ox Delivery Rate 10/21 0825 99.0 68 14 117/71 86.5 95 Room air 10/21 0420 97.7 71 15 131/67 88.3 94 Room air 10/20 2325 97.3 65 16 127/62 83.8 90 Room air 10/20 1938 97.7 62 18 121/66 84.0 92 Room air 10/20 1559 97.7 65 18 123/63 83.1 94 Room air 10/20 1559 97.7 65 18 123/63 83.1 94 Room air 10/20 1148 98.4 57 18 117/62 80.6 93 Room air 24 hour I O ending at 0700: 10/21 0700 10/20 1900 Intake Total 100 500 Output Total Balance 100 500 Intake, Oral 100 500 Number Voids 4 Patient 104.9 kg Weight Weight Bed scale Measurement Method Medications: Active Meds + DC'd Last 24 Hrs Apixaban 5 MG Q12HR PO Hydrocodone Bitart/Acetaminophen 1 TAB Q6H PRN PRN PO Apixaban 10 MG Q12HR PO (CKD) Fluconazole 100 MG DAILY PO Sodium Biphosphate/Sodium Phosphate 1 EACH DAILY PRN PRN RECTAL (CKD) Bisacodyl 10 MG DAILY PRN PO Bisacodyl 10 MG DAILY PRN RECTAL Ciprofloxacin HCl 500 MG BID PO Docusate Sodium 100 MG BID PRN PRN PO Magnesium Hydroxide 30 ML Q12H PRN PRN PO Morphine Sulfate 4 MG ONCE PRN IV Sodium Hypochlorite 473 ML DAILY TOPICAL (DC) Potassium Chloride 20 MEQ 1800 PO Metoprolol Succinate 100 MG DAILY PO Valsartan 320 MG DAILY PO Levothyroxine Sodium 100 MCG DAILY@0600 PO Insulin Human Lispro MILD SLIDING SCALE (Thin, NPO, sensitive) AC HS SUBQ Dextrose 20 GM ASDIR PRN PO Dextrose/Water 25 GM ASDIR PRN IV Dextrose/Water 12.5 GM ASDIR PRN IV Amlodipine Besylate 10 MG 1800 PO Famotidine 20 MG Q24H PO Furosemide 20 MG 1800 PO Tramadol HCl 50 MG Q8H PRN PRN PO Acetaminophen 650 MG Q4H PRN PRN PO Hydralazine HCl 10 MG Q6H PRN PRN IV Ondansetron HCl 4 MG Q8H PRN PRN IV Physical Exam General appearance: alert, awake, oriented Head/Eyes: atraumatic, normocephalic Neck: no JVD, no masses or swelling Cardiovascular: normal heart sounds, regular rate rhythm, no murmur Respiratory: aerating well, clear to auscultation, no distress Abdomen: obese, non-tender, normal bowel sounds, soft, no guarding Extremities: moves all, no cyanosis 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 Skin: normal temperature Wound/incision: Location: R lower leg Site Condition: dressing clean dry, dressing intact Psychiatry: normal affect, normal judgment/insight, normal mood Results Findings/Data: Laboratory Tests 05/03 05/03 05/03 05/02 05/02 1015 0559 0243 1939 1634 Chemistry Sodium (133 - 145 MMOL/L) 141 Potassium (3.6 - 5.2 MMOL/L) 4.5 Chloride (100 - 108 MMOL/L) 105 Carbon Dioxide (22 - 32 MMOL/L) 29 BUN (6 - 20 MG/DL) 34 H Creatinine (0.60 - 1.00 MG/DL) 1.55 H Estimated GFR (MDRD) (39 - 90) 33 L Glucose (65 - 99 MG/DL) 104 H POC Glucose (65 - 99 MG/DL) 100 H 81 113 H 111 H Calcium (8.7 - 10.5 MG/DL) 8.9 Magnesium (1.8 - 2.4 MG/DL) 2.3 Total Bilirubin (0.0 - 1.0 MG/DL) 0.3 AST (15 - 37 Units/L) 18 ALT (30 - 65 Units/L) 17 L Alkaline Phosphatase (50 - 136 93 Units/L) Total Protein (6.4 - 8.2 G/DL) 5.9 L Albumin (3.4 - 5.0 G/DL) 2.4 L Globulin (1.5 - 3.8 G/DL) 3.5 Albumin/Globulin Ratio (1.1 - 2.2) 0.7 L Laboratory Tests 10/21 0243 Hematology WBC (4.80 - 10.80 x10 3/uL) 9.13 RBC (4.2 - 5.4 x10 6/uL) 3.55 L Hgb (12.0 - 16.0 G/DL) 10.1 L Hct (37 - 47 %) 33.1 L MCV (81 - 99 FL) 93.2 MCH (27 - 31 PG) 28.5 MCHC (33 - 37 G/DL) 30.5 L RDW Coeff of Skylar (11.5 - 14.5 %) 14.8 H Plt Count (150 - 450 x10 3/uL) 318 MPV (7.4 - 10.4 FL) 10.4 Neut % (Auto) (42 - 86 %) 65.5 Lymph % (Auto) (24 - 44 %) 17.2 L [place] % (Auto) (0.0 - 4.0 %) 10.5 H Eos % (Auto) (0.0 - 2.7 %) 4.2 H Baso % (Auto) (0.0 - 0.5 %) 0.8 H Eos # (Auto) (0.0 - 0.5 x10 3/uL) 0.38 Baso # (Auto) (0.0 - 0.2 x10 3/uL) 0.07 Abs Immat Gran (auto) (0.00 - 0.03 x10 3/uL) 0.16 H Absolute Neuts (auto) (1.8 - 7.7 x10 3/uL) 5.99 Absolute Lymphs (auto) (1.0 - 4.8 x10 3/uL) 1.57 Absolute Monos (auto) (0.0 - 0.8 x10 3/uL) 0.96 H Absolute Nucleated RBC (0.0 - 0.2 X10 3/uL) 0.0 Immature Gran % (0.0 - 2.0 %) 1.8 Nucleated RBC % (0.0 - 0.0 %) 0.0 Diagnosis, Assessment Plan Hospital course to date: Assessment: - RLE wound with new purulent cellulitis, pseudomonas Aeuruginos infection sensitive to Cipro s/p evacuation of hematoma, excisional debridment skin and subcutaneous, and ligation of saphenous vein and branches on 09/25/[address] Taylor as well as washout R medial calf wound and wound vac on 09/27/[address] Taylor. Wound appeared to be infected with significant amt of yellow purulent discharge seen in wound. Wound vac now in place On 10/13/18 PROCEDURE PERFORMED: Dissection with excision and split-thickness skin grafting. OPERATING SURGEON: Akash Phelan MD - Hx of DVT and pulmonary embolism, not on anticoagulation due to recent hematoma.-> eliquis started -Right upper extremity DVT - Hypertension, stable BP - Gastroesophageal reflux disease, controlled - COPD, not in acute exacerbation - Asthma, not in acute exacerbation - Hyperlipidemia, clinically stable - Chronic Anemia, pt's H/H on admission 10.5; was 10.2 on 09/30/18 upon d/c - Hypothyroidism, clinically stable - IFG. HA1C 5.9 - RA on low dose prednisone, chronic pain - Gout Plan - Monitor H/H closely. - continue Cipro -> DC today -Plastic surgery consulted -> Skin graft placed on 10/13/18 - Pain management - Home BP medication regimen - Continue home thyroid supplementation regimen - Mild SSI regimen. - PT/PT wound care -CM for SNF - CHF EDUCATION - DAILY WEIGHTS AND STRICT I/O - warm compress TID -Difucan for symptoms of yeast infection -> DC today -Eliquis started DISPOSITION: -Wound vac removed yesterday, outpatient wound care is set up and the patient has follow appointments scheduled, she will be discharged on eliquis and told to discontinue her home xarelto Consultants: customs compliance specialist: Dr. Christy at [phone] at 0835 RPT #:[id number] END OF REPORT [facility] 2018-10-20 19:24:00 [facility] ([facility]) Hospitalist Progress Note REPORT#:[id number] REPORT STATUS: Signed DATE:10/20/18 TIME: 1923 PATIENT: GABBIE CASTANEDA UNIT #: [id number] [facility] AGE: 78 SEX: F ATTEND: Chele Bass MD ADM AUTHOR: Vasquez Noel DO R2 * ALL edits or amendments must be made on the electronic/computer document * Subjective Chief Complaint: RLE bleeding HPI: Patient voices no new concerns, denies bleeding, to have wound vac removed today Review of Systems Constitutional: Denies: chills, fever. Skin: Denies: rash, swelling. Eyes: Denies: visual loss/blurred, photophobia. ENT: Denies: throat pain, throat swelling. Respiratory: Denies: SOB, wheezing. Cardiovascular: Denies: chest pain, [place] (dyspnea on exertion). GI: Denies: abdominal pain, nausea, vomiting. : Denies: dysuria, flank pain. Musculoskeletal: Reports: extremity pain. Denies: extremity swelling. Neuro: Denies: change in LOC, syncope. Objective General VS/I O: Vital Signs: Date Time Temp Pulse Resp B/P B/P Pulse O2 O2 Flow FiO2 Mean Ox Delivery Rate 10/20 1938 97.7 62 18 121/66 84.0 92 Room air 10/20 1559 97.7 65 18 123/63 83.1 94 Room air 10/20 1148 98.4 57 18 117/62 80.6 93 Room air / 0820 98.8 68 18 121/68 85.7 95 Room air / 0431 97.9 67 17 128/66 86.9 96 Room air / 0431 97.9 67 17 128/66 86.9 96 Room air / 0026 98.4 67 17 122/69 86.9 96 Room air / 0026 98.4 67 17 122/69 86.9 96 Room air 24 hour I O ending at 0700: 10/20 0700 05 1900 Intake Total 100 400 Output Total 850 Balance -750 400 Intake, Oral 100 400 Number 1 Bowel Movements Number Voids 5 Output, Urine 850 Medications: Active Meds + DC'd Last 24 Hrs Apixaban 5 MG Q12HR PO Hydrocodone Bitart/Acetaminophen 1 TAB Q6H PRN PRN PO Morphine Sulfate 4 MG ONCE ONE IV (DC) Apixaban 10 MG Q12HR PO (CKD) Fluconazole 100 MG DAILY PO Sodium Biphosphate/Sodium Phosphate 1 EACH DAILY PRN PRN RECTAL (CKD) Bisacodyl 10 MG DAILY PRN PO Bisacodyl 10 MG DAILY PRN RECTAL Ciprofloxacin HCl 500 MG BID PO Docusate Sodium 100 MG BID PRN PRN PO Magnesium Hydroxide 30 ML Q12H PRN PRN PO Morphine Sulfate 4 MG ONCE PRN IV Sodium Hypochlorite 473 ML DAILY TOPICAL (CKD) Oxycodone HCl 5 MG Q4H PRN PRN PO (DC) Potassium Chloride 20 MEQ 1800 PO Metoprolol Succinate 100 MG DAILY PO Valsartan 320 MG DAILY PO Levothyroxine Sodium 100 MCG DAILY@0600 PO Insulin Human Lispro MILD SLIDING SCALE (Thin, NPO, sensitive) AC HS SUBQ Dextrose 20 GM ASDIR PRN PO Dextrose/Water 25 GM ASDIR PRN IV Dextrose/Water 12.5 GM ASDIR PRN IV Amlodipine Besylate 10 MG 1800 PO Famotidine 20 MG Q24H PO Furosemide 20 MG 1800 PO Tramadol HCl 50 MG Q8H PRN PRN PO Acetaminophen 650 MG Q4H PRN PRN PO Hydralazine HCl 10 MG Q6H PRN PRN IV Ondansetron HCl 4 MG Q8H PRN PRN IV Physical Exam General appearance: alert, awake, oriented Head/Eyes: atraumatic, normocephalic Neck: no JVD, no masses or swelling Cardiovascular: normal heart sounds, regular rate rhythm, no murmur Respiratory: aerating well, clear to auscultation, no distress Abdomen: obese, non-tender, normal bowel sounds, soft, no guarding Extremities: moves all, no cyanosis 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 Skin: normal temperature Wound/incision: Location: R lower leg Site Condition: wound vac applied Psychiatry: normal affect, normal judgment/insight, normal mood Diagnosis, Assessment Plan Hospital course to date: Assessment: - RLE wound with new purulent cellulitis, pseudomonas Aeuruginos infection sensitive to Cipro s/p evacuation of hematoma, excisional debridment skin and subcutaneous, and ligation of saphenous vein and branches on 09/25/[address] Taylor as well as washout R medial calf wound and wound vac on 09/27/[address] Taylor. Wound appeared to be infected with significant amt of yellow purulent discharge seen in wound. Wound vac now in place On 10/13/18 PROCEDURE PERFORMED: Dissection with excision and split-thickness skin grafting. OPERATING SURGEON: Akash Phelna MD - Hx of DVT and pulmonary embolism, not on anticoagulation due to recent hematoma.-> eliquis started -Right upper extremity DVT - Hypertension, stable BP - Gastroesophageal reflux disease, controlled - COPD, not in acute exacerbation - Asthma, not in acute exacerbation - Hyperlipidemia, clinically stable - Chronic Anemia, pt's H/H on admission 10.5; was 10.2 on 09/30/18 upon d/c - Hypothyroidism, clinically stable - IFG. HA1C 5.9 - RA on low dose prednisone, chronic pain - Gout Plan - Monitor H/H closely. - continue Cipro -Plastic surgery consulted -> Skin graft placed on 10/13/18 - Pain management - Home BP medication regimen - Continue home thyroid supplementation regimen - Mild SSI regimen. - PT/PT wound care -CM for SNF - CHF EDUCATION - DAILY WEIGHTS AND STRICT I/O - warm compress TID -Difucan for symptoms of yeast infection -Eliquis started DISPOSITION: - Wound vac in place. Plastic surgery consulted. Will follow up on recs. I spoke with the patient's plastic surgeon today. He has cleared the patient for discharge. Wound Vac to DC today. Case managment for in hospital wound care Consultants: customs compliance specialist: Dr. Christy at [phone] RPT #:[id number] END OF REPORT [facility] 2018-10-20 19:24:00 [facility] ([facility]) Hospitalist Progress Note REPORT#:[id number] REPORT STATUS: Signed DATE:10/20/18 TIME: 1923 PATIENT: GABBIE CASTANEDA LITZY UNIT #: [id number] ROOM[address]BED: [address] : [address] AGE: 78 SEX: F ATTEND: Chele Bass MD ADM AUTHOR: Vasquez Noel DO R2 * ALL edits or amendments must be made on the electronic/computer document * Subjective Chief Complaint: RLE bleeding HPI: Patient voices no new concerns, denies bleeding, to have wound vac removed today Review of Systems Constitutional: Denies: chills, fever. Skin: Denies: rash, swelling. Eyes: Denies: visual loss/blurred, photophobia. ENT: Denies: throat pain, throat swelling. Respiratory: Denies: SOB, wheezing. Cardiovascular: Denies: chest pain, [place] (dyspnea on exertion). GI: Denies: abdominal pain, nausea, vomiting. : Denies: dysuria, flank pain. Musculoskeletal: Reports: extremity pain. Denies: extremity swelling. Neuro: Denies: change in LOC, syncope. Objective General VS/I O: Vital Signs: Date Time Temp Pulse Resp B/P B/P Pulse O2 O2 Flow FiO2 Mean Ox Delivery Rate 10/20 1938 97.7 62 18 121/66 84.0 92 Room air 10/20 1559 97.7 65 18 123/63 83.1 94 Room air 10/20 1148 98.4 57 18 117/62 80.6 93 Room air / 0820 98.8 68 18 121/68 85.7 95 Room air 10/20 0431 97.9 67 17 128/66 86.9 96 Room air 05/ 0431 97.9 67 17 128/66 86.9 96 Room air / 0026 98.4 67 17 122/69 86.9 96 Room air 05/ 0026 98.4 67 17 122/69 86.9 96 Room air 24 hour I O ending at 0700: 10/20 0700 05/ 1900 Intake Total 100 400 Output Total 850 Balance -750 400 Intake, Oral 100 400 Number 1 Bowel Movements Number Voids 5 Output, Urine 850 Medications: Active Meds + DC'd Last 24 Hrs Apixaban 5 MG Q12HR PO Hydrocodone Bitart/Acetaminophen 1 TAB Q6H PRN PRN PO Morphine Sulfate 4 MG ONCE ONE IV (DC) Apixaban 10 MG Q12HR PO (CKD) Fluconazole 100 MG DAILY PO Sodium Biphosphate/Sodium Phosphate 1 EACH DAILY PRN PRN RECTAL (CKD) Bisacodyl 10 MG DAILY PRN PO Bisacodyl 10 MG DAILY PRN RECTAL Ciprofloxacin HCl 500 MG BID PO Docusate Sodium 100 MG BID PRN PRN PO Magnesium Hydroxide 30 ML Q12H PRN PRN PO Morphine Sulfate 4 MG ONCE PRN IV Sodium Hypochlorite 473 ML DAILY TOPICAL (CKD) Oxycodone HCl 5 MG Q4H PRN PRN PO (DC) Potassium Chloride 20 MEQ 1800 PO Metoprolol Succinate 100 MG DAILY PO Valsartan 320 MG DAILY PO Levothyroxine Sodium 100 MCG DAILY@0600 PO Insulin Human Lispro MILD SLIDING SCALE (Thin, NPO, sensitive) AC HS SUBQ Dextrose 20 GM ASDIR PRN PO Dextrose/Water 25 GM ASDIR PRN IV Dextrose/Water 12.5 GM ASDIR PRN IV Amlodipine Besylate 10 MG 1800 PO Famotidine 20 MG Q24H PO Furosemide 20 MG 1800 PO Tramadol HCl 50 MG Q8H PRN PRN PO Acetaminophen 650 MG Q4H PRN PRN PO Hydralazine HCl 10 MG Q6H PRN PRN IV Ondansetron HCl 4 MG Q8H PRN PRN IV Physical Exam General appearance: alert, awake, oriented Head/Eyes: atraumatic, normocephalic Neck: no JVD, no masses or swelling Cardiovascular: normal heart sounds, regular rate rhythm, no murmur Respiratory: aerating well, clear to auscultation, no distress Abdomen: obese, non-tender, normal bowel sounds, soft, no guarding Extremities: moves all, no cyanosis 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 Skin: normal temperature Wound/incision: Location: R lower leg Site Condition: wound vac applied Psychiatry: normal affect, normal judgment/insight, normal mood Diagnosis, Assessment Plan Hospital course to date: Assessment: - RLE wound with new purulent cellulitis, pseudomonas Aeuruginos infection sensitive to Cipro s/p evacuation of hematoma, excisional debridment skin and subcutaneous, and ligation of saphenous vein and branches on 09/25/[address] Taylor as well as washout R medial calf wound and wound vac on 09/27/[address] Taylor. Wound appeared to be infected with significant amt of yellow purulent discharge seen in wound. Wound vac now in place On 10/13/18 PROCEDURE PERFORMED: Dissection with excision and split-thickness skin grafting. OPERATING SURGEON: Akash Phelan MD - Hx of DVT and pulmonary embolism, not on anticoagulation due to recent hematoma.-> eliquis started -Right upper extremity DVT - Hypertension, stable BP - Gastroesophageal reflux disease, controlled - COPD, not in acute exacerbation - Asthma, not in acute exacerbation - Hyperlipidemia, clinically stable - Chronic Anemia, pt's H/H on admission 10.5; was 10.2 on 09/30/18 upon d/c - Hypothyroidism, clinically stable - IFG. HA1C 5.9 - RA on low dose prednisone, chronic pain - Gout Plan - Monitor H/H closely. - continue Cipro -Plastic surgery consulted -> Skin graft placed on 10/13/18 - Pain management - Home BP medication regimen - Continue home thyroid supplementation regimen - Mild SSI regimen. - PT/PT wound care -CM for SNF - CHF EDUCATION - DAILY WEIGHTS AND STRICT I/O - warm compress TID -Difucan for symptoms of yeast infection -Eliquis started DISPOSITION: - Wound vac in place. Plastic surgery consulted. Will follow up on recs. I spoke with the patient's plastic surgeon today. He has cleared the patient for discharge. Wound Vac to DC today. Case managment for in hospital wound care Consultants: customs compliance specialist: Dr. Christy at [phone] at [phone] RPT #:[id number] END OF REPORT [facility] 2018-10-19 15:33:00 [facility] ([facility]) Hospitalist Progress Note REPORT#:[id number] REPORT STATUS: Signed DATE:10/19/18 TIME: 1533 PATIENT: GABBIE CASTANEDA UNIT #: [id number] ROOM[address]BED: [address] : [address] AGE: 78 SEX: F ATTEND: Chele Bass MD ADM AUTHOR: Vasquez Noel DO R2 * ALL edits or amendments must be made on the electronic/computer document * Subjective Chief Complaint: RLE bleeding HPI: Patient was started on eliquis yesterday and is tolerating, reports pain is controlled Review of Systems Constitutional: Denies: chills, fever. Skin: Denies: rash, swelling. Eyes: Denies: visual loss/blurred, photophobia. ENT: Denies: throat pain, throat swelling. Respiratory: Denies: SOB, wheezing. Cardiovascular: Denies: chest pain, [place] (dyspnea on exertion). GI: Denies: abdominal pain, nausea, vomiting. : Denies: dysuria, flank pain. Musculoskeletal: Reports: extremity pain. Denies: extremity swelling. Neuro: Denies: change in LOC, syncope. Objective General VS/I O: Vital Signs: Date Time Temp Pulse Resp B/P B/P Pulse O2 O2 Flow FiO2 Mean Ox Delivery Rate 10/19 1519 97.3 66 13 126/68 87.7 92 Room air 10/19 1219 98.6 69 15 115/59 77.7 97 Room air 10/19 0803 98.1 66 15 149/71 97.1 97 Room air 10/19 0438 97.9 66 13 133/62 86.0 92 Room air 10/19 0438 97.9 66 13 133/62 86.0 92 Room air 10/18 2311 98.4 72 20 144/53 83.5 96 10/18 2002 97.9 61 17 129/65 86.2 98 Room air 10/18 2002 97.9 61 17 129/65 86.2 98 Room air 24 hour I O ending at 0700: 10/19 0710/18 1900 Intake Total Output Total 1000 Balance -1000 Number 1 Bowel Movements Output, Urine 1000 Patient 98.4 kg Weight Weight Bed scale Measurement Method Medications: Active Meds + DC'd Last 24 Hrs Apixaban 5 MG Q12HR PO Apixaban 10 MG Q12HR PO (DC) Apixaban 10 MG Q12HR PO (CKD) Fluconazole 100 MG DAILY PO Sodium Biphosphate/Sodium Phosphate 1 EACH DAILY PRN PRN RECTAL (CKD) Enoxaparin Sodium 40 MG DAILY SUBQ (DC) Bisacodyl 10 MG DAILY PRN PO Bisacodyl 10 MG DAILY PRN RECTAL Ciprofloxacin HCl 500 MG BID PO Docusate Sodium 100 MG BID PRN PRN PO Magnesium Hydroxide 30 ML Q12H PRN PRN PO Morphine Sulfate 4 MG ONCE PRN IV Sodium Hypochlorite 473 ML DAILY TOPICAL (CKD) Oxycodone HCl 5 MG Q4H PRN PRN PO Potassium Chloride 20 MEQ 1800 PO Metoprolol Succinate 100 MG DAILY PO Valsartan 320 MG DAILY PO Levothyroxine Sodium 100 MCG DAILY@0600 PO Insulin Human Lispro MILD SLIDING SCALE (Thin, NPO, sensitive) AC HS SUBQ Dextrose 20 GM ASDIR PRN PO Dextrose/Water 25 GM ASDIR PRN IV Dextrose/Water 12.5 GM ASDIR PRN IV Amlodipine Besylate 10 MG 1800 PO Famotidine 20 MG Q24H PO Furosemide 20 MG 1800 PO Tramadol HCl 50 MG Q8H PRN PRN PO Acetaminophen 650 MG Q4H PRN PRN PO Hydralazine HCl 10 MG Q6H PRN PRN IV Ondansetron HCl 4 MG Q8H PRN PRN IV Physical Exam General appearance: alert, awake, oriented Head/Eyes: atraumatic, normocephalic Neck: no JVD, no masses or swelling Cardiovascular: normal heart sounds, regular rate rhythm, no murmur Respiratory: aerating well, clear to auscultation, no distress Abdomen: obese, non-tender, normal bowel sounds, soft, no guarding Extremities: moves all, no cyanosis 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 Skin: normal temperature Wound/incision: Location: R lower leg Site Condition: wound vac applied Psychiatry: normal affect, normal judgment/insight, normal mood Results Findings/Data: Laboratory Tests 10/19 10/19 10/19 10/18 10/18 1039 0656 0610 2042 1634 Chemistry Sodium (133 - 145 MMOL/L) 143 Potassium (3.6 - 5.2 MMOL/L) 3.9 Chloride (100 - 108 MMOL/L) 107 Carbon Dioxide (22 - 32 MMOL/L) 31 BUN (6 - 20 MG/DL) 21 H Creatinine (0.60 - 1.00 MG/DL) 1.04 H Estimated GFR (MDRD) (39 - 90) 52 Glucose (65 - 99 MG/DL) 97 POC Glucose (65 - 99 MG/DL) 136 H 95 89 122 H Calcium (8.7 - 10.5 MG/DL) 8.8 Magnesium (1.8 - 2.4 MG/DL) 2.1 Total Bilirubin (0.0 - 1.0 MG/DL) 0.3 AST (15 - 37 Units/L) 19 ALT (30 - 65 Units/L) 21 L Alkaline Phosphatase (50 - 136 Units/L) 88 Total Protein (6.4 - 8.2 G/DL) 5.8 L Albumin (3.4 - 5.0 G/DL) 2.4 L Globulin (1.5 - 3.8 G/DL) 3.4 Albumin/Globulin Ratio (1.1 - 2.2) 0.7 L Laboratory Tests 10/19 0656 Hematology WBC (4.80 - 10.80 x10 3/uL) 7.68 RBC (4.2 - 5.4 x10 6/uL) 3.38 L Hgb (12.0 - 16.0 G/DL) 9.6 L Hct (37 - 47 %) 31.0 L MCV (81 - 99 FL) 91.7 MCH (27 - 31 PG) 28.4 MCHC (33 - 37 G/DL) 31.0 L RDW Coeff of Skylar (11.5 - 14.5 %) 14.5 Plt Count (150 - 450 x10 3/uL) 310 MPV (7.4 - 10.4 FL) 9.9 Neut % (Auto) (42 - 86 %) 61.3 Lymph % (Auto) (24 - 44 %) 21.2 L [place] % (Auto) (0.0 - 4.0 %) 9.8 H Eos % (Auto) (0.0 - 2.7 %) 5.1 H Baso % (Auto) (0.0 - 0.5 %) 0.5 Eos # (Auto) (0.0 - 0.5 x10 3/uL) 0.39 Baso # (Auto) (0.0 - 0.2 x10 3/uL) 0.04 Abs Immat Gran (auto) (0.00 - 0.03 x10 3/uL) 0.16 H Absolute Neuts (auto) (1.8 - 7.7 x10 3/uL) 4.71 Absolute Lymphs (auto) (1.0 - 4.8 x10 3/uL) 1.63 Absolute Monos (auto) (0.0 - 0.8 x10 3/uL) 0.75 Absolute Nucleated RBC (0.0 - 0.2 X10 3/uL) 0.0 Immature Gran % (0.0 - 2.0 %) 2.1 H Nucleated RBC % (0.0 - 0.0 %) 0.0 Diagnosis, Assessment Plan Hospital course to date: Assessment: - RLE wound with new purulent cellulitis, pseudomonas Aeuruginos infection sensitive to Cipro s/p evacuation of hematoma, excisional debridment skin and subcutaneous, and ligation of saphenous vein and branches on 09/25/[address] Taylor as well as washout R medial calf wound and wound vac on 09/27/[address] Taylor. Wound appeared to be infected with significant amt of yellow purulent discharge seen in wound. Wound vac now in place On 10/13/18 PROCEDURE PERFORMED: Dissection with excision and split-thickness skin grafting. OPERATING SURGEON: Akash Phelan MD - Hx of DVT and pulmonary embolism, not on anticoagulation due to recent hematoma.-> eliquis started -Right upper extremity DVT - Hypertension, stable BP - Gastroesophageal reflux disease, controlled - COPD, not in acute exacerbation - Asthma, not in acute exacerbation - Hyperlipidemia, clinically stable - Chronic Anemia, pt's H/H on admission 10.5; was 10.2 on 09/30/18 upon d/c - Hypothyroidism, clinically stable - IFG. HA1C 5.9 - RA on low dose prednisone, chronic pain - Gout Plan - Monitor H/H closely. - continue Cipro -Plastic surgery consulted -> Skin graft placed on 10/13/18 - Pain management - Home BP medication regimen - Continue home thyroid supplementation regimen - Mild SSI regimen. - PT/PT wound care -CM for SNF - CHF EDUCATION - DAILY WEIGHTS AND STRICT I/O - warm compress TID -Difucan for symptoms of yeast infection -Eliquis started DISPOSITION: - Wound vac in place. Plastic surgery consulted. Will follow up on recs. I spoke with the patient's plastic surgeon today. He has cleared the patient for discharge. Asks that the wound vac be DC in 1-2 days. Should have it removed tomorrow. Case managment for in hospital wound care Consultants: customs compliance specialist: Dr. Christy at 1538 RPT #:[id number] END OF REPORT [facility] 2018-10-19 15:33:00 [facility] ([facility] Hospitalist Progress Note REPORT#:[id number] REPORT STATUS: Signed DATE:10/19/18 TIME: 1533 PATIENT: GABBIE CASTANEDA UNIT #: [id number] ROOM/BED: [facility] : 42 AGE: 78 SEX: F ATTEND: Chele Bass MD ADM AUTHOR: Vasquez Noel DO R2 * ALL edits or amendments must be made on the electronic/computer document * Subjective Chief Complaint: RLE bleeding HPI: Patient was started on eliquis yesterday and is tolerating, reports pain is controlled Review of Systems Constitutional: Denies: chills, fever. Skin: Denies: rash, swelling. Eyes: Denies: visual loss/blurred, photophobia. ENT: Denies: throat pain, throat swelling. Respiratory: Denies: SOB, wheezing. Cardiovascular: Denies: chest pain, [place] (dyspnea on exertion). GI: Denies: abdominal pain, nausea, vomiting. : Denies: dysuria, flank pain. Musculoskeletal: Reports: extremity pain. Denies: extremity swelling. Neuro: Denies: change in LOC, syncope. Objective General VS/I O: Vital Signs: Date Time Temp Pulse Resp B/P B/P Pulse O2 O2 Flow FiO2 Mean Ox Delivery Rate 10/19 1519 97.3 66 13 126/68 87.7 92 Room air 10/19 1219 98.6 69 15 115/59 77.7 97 Room air 10/19 0803 98.1 66 15 149/71 97.1 97 Room air 10/19 0438 97.9 66 13 133/62 86.0 92 Room air 10/19 0438 97.9 66 13 133/62 86.0 92 Room air 10/18 2311 98.4 72 20 144/53 83.5 96 10/18 2002 97.9 61 17 129/65 86.2 98 Room air 10/18 2002 97.9 61 17 129/65 86.2 98 Room air 24 hour I O ending at 0700: 10/19 0700 10/18 1900 Intake Total Output Total 1000 Balance -1000 Number 1 Bowel Movements Output, Urine 1000 Patient 98.4 kg Weight Weight Bed scale Measurement Method Medications: Active Meds + DC'd Last 24 Hrs Apixaban 5 MG Q12HR PO Apixaban 10 MG Q12HR PO (DC) Apixaban 10 MG Q12HR PO (CKD) Fluconazole 100 MG DAILY PO Sodium Biphosphate/Sodium Phosphate 1 EACH DAILY PRN PRN RECTAL (CKD) Enoxaparin Sodium 40 MG DAILY SUBQ (DC) Bisacodyl 10 MG DAILY PRN PO Bisacodyl 10 MG DAILY PRN RECTAL Ciprofloxacin HCl 500 MG BID PO Docusate Sodium 100 MG BID PRN PRN PO Magnesium Hydroxide 30 ML Q12H PRN PRN PO Morphine Sulfate 4 MG ONCE PRN IV Sodium Hypochlorite 473 ML DAILY TOPICAL (CKD) Oxycodone HCl 5 MG Q4H PRN PRN PO Potassium Chloride 20 MEQ 1800 PO Metoprolol Succinate 100 MG DAILY PO Valsartan 320 MG DAILY PO Levothyroxine Sodium 100 MCG DAILY@0600 PO Insulin Human Lispro MILD SLIDING SCALE (Thin, NPO, sensitive) AC HS SUBQ Dextrose 20 GM ASDIR PRN PO Dextrose/Water 25 GM ASDIR PRN IV Dextrose/Water 12.5 GM ASDIR PRN IV Amlodipine Besylate 10 MG 1800 PO Famotidine 20 MG Q24H PO Furosemide 20 MG 1800 PO Tramadol HCl 50 MG Q8H PRN PRN PO Acetaminophen 650 MG Q4H PRN PRN PO Hydralazine HCl 10 MG Q6H PRN PRN IV Ondansetron HCl 4 MG Q8H PRN PRN IV Physical Exam General appearance: alert, awake, oriented Head/Eyes: atraumatic, normocephalic Neck: no JVD, no masses or swelling Cardiovascular: normal heart sounds, regular rate rhythm, no murmur Respiratory: aerating well, clear to auscultation, no distress Abdomen: obese, non-tender, normal bowel sounds, soft, no guarding Extremities: moves all, no cyanosis 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 Skin: normal temperature Wound/incision: Location: R lower leg Site Condition: wound vac applied Psychiatry: normal affect, normal judgment/insight, normal mood Results Findings/Data: Laboratory Tests 10/19 10/19 10/19 10/18 10/18 1039 0656 0610 2042 1634 Chemistry Sodium (133 - 145 MMOL/L) 143 Potassium (3.6 - 5.2 MMOL/L) 3.9 Chloride (100 - 108 MMOL/L) 107 Carbon Dioxide (22 - 32 MMOL/L) 31 BUN (6 - 20 MG/DL) 21 H Creatinine (0.60 - 1.00 MG/DL) 1.04 H Estimated GFR (MDRD) (39 - 90) 52 Glucose (65 - 99 MG/DL) 97 POC Glucose (65 - 99 MG/DL) 136 H 95 89 122 H Calcium (8.7 - 10.5 MG/DL) 8.8 Magnesium (1.8 - 2.4 MG/DL) 2.1 Total Bilirubin (0.0 - 1.0 MG/DL) 0.3 AST (15 - 37 Units/L) 19 ALT (30 - 65 Units/L) 21 L Alkaline Phosphatase (50 - 136 Units/L) 88 Total Protein (6.4 - 8.2 G/DL) 5.8 L Albumin (3.4 - 5.0 G/DL) 2.4 L Globulin (1.5 - 3.8 G/DL) 3.4 Albumin/Globulin Ratio (1.1 - 2.2) 0.7 L Laboratory Tests 10/19 0656 Hematology WBC (4.80 - 10.80 x10 3/uL) 7.68 RBC (4.2 - 5.4 x10 6/uL) 3.38 L Hgb (12.0 - 16.0 G/DL) 9.6 L Hct (37 - 47 %) 31.0 L MCV (81 - 99 FL) 91.7 MCH (27 - 31 PG) 28.4 MCHC (33 - 37 G/DL) 31.0 L RDW Coeff of Skylar (11.5 - 14.5 %) 14.5 Plt Count (150 - 450 x10 3/uL) 310 MPV (7.4 - 10.4 FL) 9.9 Neut % (Auto) (42 - 86 %) 61.3 Lymph % (Auto) (24 - 44 %) 21.2 L [place] % (Auto) (0.0 - 4.0 %) 9.8 H Eos % (Auto) (0.0 - 2.7 %) 5.1 H Baso % (Auto) (0.0 - 0.5 %) 0.5 Eos # (Auto) (0.0 - 0.5 x10 3/uL) 0.39 Baso # (Auto) (0.0 - 0.2 x10 3/uL) 0.04 Abs Immat Gran (auto) (0.00 - 0.03 x10 3/uL) 0.16 H Absolute Neuts (auto) (1.8 - 7.7 x10 3/uL) 4.71 Absolute Lymphs (auto) (1.0 - 4.8 x10 3/uL) 1.63 Absolute Monos (auto) (0.0 - 0.8 x10 3/uL) 0.75 Absolute Nucleated RBC (0.0 - 0.2 X10 3/uL) 0.0 Immature Gran % (0.0 - 2.0 %) 2.1 H Nucleated RBC % (0.0 - 0.0 %) 0.0 Diagnosis, Assessment Plan Hospital course to date: Assessment: - RLE wound with new purulent cellulitis, pseudomonas Aeuruginos infection sensitive to Cipro s/p evacuation of hematoma, excisional debridment skin and subcutaneous, and ligation of saphenous vein and branches on 09/25/[address] Taylor as well as washout R medial calf wound and wound vac on 09/27/[address] Taylor. Wound appeared to be infected with significant amt of yellow purulent discharge seen in wound. Wound vac now in place On 10/13/18 PROCEDURE PERFORMED: Dissection with excision and split-thickness skin grafting. OPERATING SURGEON: Akash Bindingnavele, MD - Hx of DVT and pulmonary embolism, not on anticoagulation due to recent hematoma.-> eliquis started -Right upper extremity DVT - Hypertension, stable BP - Gastroesophageal reflux disease, controlled - COPD, not in acute exacerbation - Asthma, not in acute exacerbation - Hyperlipidemia, clinically stable - Chronic Anemia, pt's H/H on admission 10.5; was 10.2 on 09/30/18 upon d/c - Hypothyroidism, clinically stable - IFG. HA1C 5.9 - RA on low dose prednisone, chronic pain - Gout Plan - Monitor H/H closely. - continue Cipro -Plastic surgery consulted -> Skin graft placed on 10/13/18 - Pain management - Home BP medication regimen - Continue home thyroid supplementation regimen - Mild SSI regimen. - PT/PT wound care -CM for SNF - CHF EDUCATION - DAILY WEIGHTS AND STRICT I/O - warm compress TID -Difucan for symptoms of yeast infection -Eliquis started DISPOSITION: - Wound vac in place. Plastic surgery consulted. Will follow up on recs. I spoke with the patient's plastic surgeon today. He has cleared the patient for discharge. Asks that the wound vac be DC in 1-2 days. Should have it removed tomorrow. Case managment for in hospital wound care Consultants: customs compliance specialist: Dr. Christy at 1538 at 0808 RPT #:[id number] END OF REPORT [facility] 2018-10-18 11:18:00 [facility] ([facility]) Hospitalist Progress Note REPORT#:[id number] REPORT STATUS: Signed DATE:10/18/18 TIME: 1118 PATIENT: GABBIE CASTANEDA UNIT #: [id number] ROOM/BED: Y307-1 : 42 AGE: 78 SEX: F ATTEND: Chele Bass MD ADM AUTHOR: Vasquez Noel DO R2 * ALL edits or amendments must be made on the electronic/computer document * Subjective Chief Complaint: RLE bleeding HPI: patient restarted on lovenox without issue, patient reports no bleeding, does report pain and swelling at R Upper extremity after midline discontinuation Review of Systems Constitutional: Denies: chills, fever. Skin: Denies: rash, swelling. Eyes: Denies: visual loss/blurred, photophobia. ENT: Denies: throat pain, throat swelling. Respiratory: Denies: SOB, wheezing. Cardiovascular: Denies: chest pain, WHITT[place] (dyspnea on exertion). GI: Denies: abdominal pain, nausea, vomiting. : Denies: dysuria, flank pain. Musculoskeletal: Reports: extremity pain. Denies: extremity swelling. Neuro: Denies: change in LOC, syncope. Objective General VS/I O: Vital Signs: Date Time Temp Pulse Resp B/P B/P Pulse O2 O2 Flow FiO2 Mean Ox Delivery Rate 10/18 1056 99.5 67 18 144/66 92.0 97 Room air 10/18 0900 97.5 72 18 118/62 80.6 91 Room air 10/18 0402 97.9 66 18 158/73 101.1 96 Room air 10/17 2319 97.9 64 18 142/79 99.9 97 Room air 10/17 2319 97.9 64 18 142/79 99.9 97 Room air 10/17 2016 97.9 74 18 159/78 104.9 96 Room air 10/17 2016 97.9 74 18 159/78 104.9 96 Room air 10/17 1601 98.1 66 18 148/77 100.4 93 Room air 24 hour I O ending at 0700: 10/18 0700 10/17 1900 Intake Total 670 Output Total 450 Balance 220 Intake, Oral 670 Number Voids 3 Output, Urine 450 Patient 114.3 kg 110.455 kg Weight Weight Bed scale Measurement Method Medications: Active Meds + DC'd Last 24 Hrs Fluconazole 100 MG DAILY PO Sodium Biphosphate/Sodium Phosphate 1 EACH DAILY PRN PRN RECTAL (CKD) Enoxaparin Sodium 40 MG DAILY SUBQ Bisacodyl 10 MG DAILY PRN PO Bisacodyl 10 MG DAILY PRN RECTAL Ciprofloxacin HCl 500 MG BID PO Docusate Sodium 100 MG BID PRN PRN PO Magnesium Hydroxide 30 ML Q12H PRN PRN PO Morphine Sulfate 4 MG ONCE PRN IV Sodium Hypochlorite 473 ML DAILY TOPICAL (CKD) Oxycodone HCl 5 MG Q4H PRN PRN PO Potassium Chloride 20 MEQ 1800 PO Metoprolol Succinate 100 MG DAILY PO Prednisone 3 MG DAILY PO (DC) Valsartan 320 MG DAILY PO Levothyroxine Sodium 100 MCG DAILY@0600 PO Insulin Human Lispro MILD SLIDING SCALE (Thin, NPO, sensitive) AC HS SUBQ Dextrose 20 GM ASDIR PRN PO Dextrose/Water 25 GM ASDIR PRN IV Dextrose/Water 12.5 GM ASDIR PRN IV Amlodipine Besylate 10 MG 1800 PO Famotidine 20 MG Q24H PO Furosemide 20 MG 1800 PO Hydrocodone Bitart/Acetaminophen 1 TAB TID PRN PO (DC) Tramadol HCl 50 MG Q8H PRN PRN PO Acetaminophen 650 MG Q4H PRN PRN PO Hydralazine HCl 10 MG Q6H PRN PRN IV Ondansetron HCl 4 MG Q8H PRN PRN IV Physical Exam General appearance: alert, awake, oriented Head/Eyes: atraumatic, normocephalic Neck: no JVD, no masses or swelling Cardiovascular: normal heart sounds, regular rate rhythm, no murmur Respiratory: aerating well, clear to auscultation, no distress Abdomen: obese, non-tender, normal bowel sounds, soft, no guarding Extremities: moves all, no cyanosis 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 Skin: normal temperature Wound/incision: Location: R lower leg Site Condition: wound vac applied Psychiatry: normal affect, normal judgment/insight, normal mood Diagnosis, Assessment Plan Hospital course to date: Assessment: - RLE wound with new purulent cellulitis, pseudomonas Aeuruginos infection sensitive to Cipro s/p evacuation of hematoma, excisional debridment skin and subcutaneous, and ligation of saphenous vein and branches on 09/25/[address] Taylor as well as washout R medial calf wound and wound vac on 09/27/[address] Taylor. Wound appeared to be infected with significant amt of yellow purulent discharge seen in wound. Wound vac now in place On 10/13/18 PROCEDURE PERFORMED: Dissection with excision and split-thickness skin grafting. OPERATING SURGEON: Akash Phelan MD - Hx of DVT and pulmonary embolism, not on anticoagulation due to recent hematoma. - Hypertension, stable BP - Gastroesophageal reflux disease, controlled - COPD, not in acute exacerbation - Asthma, not in acute exacerbation - Hyperlipidemia, clinically stable - Chronic Anemia, pt's H/H on admission 10.5; was 10.2 on 09/30/18 upon d/c - Hypothyroidism, clinically stable - IFG. HA1C 5.9 - RA on low dose prednisone, chronic pain - Gout Plan - Monitor H/H closely. - continue Cipro -Plastic surgery consulted -> Skin graft placed on 10/13/18 - Pain management - Home BP medication regimen - Continue home thyroid supplementation regimen - Mild SSI regimen. - PT/PT wound care -CM for SNF - CHF EDUCATION - DAILY WEIGHTS AND STRICT I/O -US of R UE, warm compress TID DISPOSITION: - Wound vac in place. Plastic surgery consulted. Will follow up on recs, CM for snf placement. I spoke with the patient's plastic surgeon today. He has cleared the patient for discharge. Asks that the wound vac be DC in 2-3 days. Consultants: customs compliance specialist: Dr. Christy at 1350 RPT #:[id number] END OF REPORT [facility] 2018-10-18 11:18:00 [facility] ([facility]) Hospitalist Progress Note REPORT#:[id number] REPORT STATUS: Signed DATE:10/18/18 TIME: 1118 PATIENT: GABBIE CASTANEDA LITZY UNIT #: [id number] ROOM[facility]BED: [facility]3071 : 42 AGE: 78 SEX: F ATTEND: Chele Bass MD ADM AUTHOR: Vasquez Noel DO R2 * ALL edits or amendments must be made on the electronic/computer document * Subjective Chief Complaint: RLE bleeding HPI: patient restarted on lovenox without issue, patient reports no bleeding, does report pain and swelling at R Upper extremity after midline discontinuation Review of Systems Constitutional: Denies: chills, fever. Skin: Denies: rash, swelling. Eyes: Denies: visual loss/blurred, photophobia. ENT: Denies: throat pain, throat swelling. Respiratory: Denies: SOB, wheezing. Cardiovascular: Denies: chest pain, [place] (dyspnea on exertion). GI: Denies: abdominal pain, nausea, vomiting. : Denies: dysuria, flank pain. Musculoskeletal: Reports: extremity pain. Denies: extremity swelling. Neuro: Denies: change in LOC, syncope. Objective General VS/I O: Vital Signs: Date Time Temp Pulse Resp B/P B/P Pulse O2 O2 Flow FiO2 Mean Ox Delivery Rate 10/18 1056 99.5 67 18 144/66 92.0 97 Room air 10/18 0900 97.5 72 18 118/62 80.6 91 Room air 10/18 0402 97.9 66 18 158/73 101.1 96 Room air 10/17 2319 97.9 64 18 142/79 99.9 97 Room air 10/17 2319 97.9 64 18 142/79 99.9 97 Room air 10/17 2016 97.9 74 18 159/78 104.9 96 Room air 10/17 2016 97.9 74 18 159/78 104.9 96 Room air 10/17 1601 98.1 66 18 148/77 100.4 93 Room air 24 hour I O ending at 0700: 10/18 0700 10/17 1900 Intake Total 670 Output Total 450 Balance 220 Intake, Oral 670 Number Voids 3 Output, Urine 450 Patient 114.3 kg 110.455 kg Weight Weight Bed scale Measurement Method Medications: Active Meds + DC'd Last 24 Hrs Fluconazole 100 MG DAILY PO Sodium Biphosphate/Sodium Phosphate 1 EACH DAILY PRN PRN RECTAL (CKD) Enoxaparin Sodium 40 MG DAILY SUBQ Bisacodyl 10 MG DAILY PRN PO Bisacodyl 10 MG DAILY PRN RECTAL Ciprofloxacin HCl 500 MG BID PO Docusate Sodium 100 MG BID PRN PRN PO Magnesium Hydroxide 30 ML Q12H PRN PRN PO Morphine Sulfate 4 MG ONCE PRN IV Sodium Hypochlorite 473 ML DAILY TOPICAL (CKD) Oxycodone HCl 5 MG Q4H PRN PRN PO Potassium Chloride 20 MEQ 1800 PO Metoprolol Succinate 100 MG DAILY PO Prednisone 3 MG DAILY PO (DC) Valsartan 320 MG DAILY PO Levothyroxine Sodium 100 MCG DAILY@0600 PO Insulin Human Lispro MILD SLIDING SCALE (Thin, NPO, sensitive) AC HS SUBQ Dextrose 20 GM ASDIR PRN PO Dextrose/Water 25 GM ASDIR PRN IV Dextrose/Water 12.5 GM ASDIR PRN IV Amlodipine Besylate 10 MG 1800 PO Famotidine 20 MG Q24H PO Furosemide 20 MG 1800 PO Hydrocodone Bitart/Acetaminophen 1 TAB TID PRN PO (DC) Tramadol HCl 50 MG Q8H PRN PRN PO Acetaminophen 650 MG Q4H PRN PRN PO Hydralazine HCl 10 MG Q6H PRN PRN IV Ondansetron HCl 4 MG Q8H PRN PRN IV Physical Exam General appearance: alert, awake, oriented Head/Eyes: atraumatic, normocephalic Neck: no JVD, no masses or swelling Cardiovascular: normal heart sounds, regular rate rhythm, no murmur Respiratory: aerating well, clear to auscultation, no distress Abdomen: obese, non-tender, normal bowel sounds, soft, no guarding Extremities: moves all, no cyanosis 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 Skin: normal temperature Wound/incision: Location: R lower leg Site Condition: wound vac applied Psychiatry: normal affect, normal judgment/insight, normal mood Diagnosis, Assessment Plan Hospital course to date: Assessment: - RLE wound with new purulent cellulitis, pseudomonas Aeuruginos infection sensitive to Cipro s/p evacuation of hematoma, excisional debridment skin and subcutaneous, and ligation of saphenous vein and branches on 09/25/[address] Taylor as well as washout R medial calf wound and wound vac on 09/27/[address] Taylor. Wound appeared to be infected with significant amt of yellow purulent discharge seen in wound. Wound vac now in place On 10/13/18 PROCEDURE PERFORMED: Dissection with excision and split-thickness skin grafting. OPERATING SURGEON: Akash Phelan MD - Hx of DVT and pulmonary embolism, not on anticoagulation due to recent hematoma. - Hypertension, stable BP - Gastroesophageal reflux disease, controlled - COPD, not in acute exacerbation - Asthma, not in acute exacerbation - Hyperlipidemia, clinically stable - Chronic Anemia, pt's H/H on admission 10.5; was 10.2 on 09/30/18 upon d/c - Hypothyroidism, clinically stable - IFG. HA1C 5.9 - RA on low dose prednisone, chronic pain - Gout Plan - Monitor H/H closely. - continue Cipro -Plastic surgery consulted -> Skin graft placed on 10/13/18 - Pain management - Home BP medication regimen - Continue home thyroid supplementation regimen - Mild SSI regimen. - PT/PT wound care -CM for SNF - CHF EDUCATION - DAILY WEIGHTS AND STRICT I/O -US of R UE, warm compress TID DISPOSITION: - Wound vac in place. Plastic surgery consulted. Will follow up on [facility] alston for snf placement. I spoke with the patient's plastic surgeon today. He has cleared the patient for discharge. Asks that the wound vac be DC in 2-3 days. Consultants: customs compliance specialist: Dr. Christy at 1350 at 0808 RPT #:[id number] END OF REPORT [facility] 2018-10-17 13:15:00 [facility] ([facility]) Hospitalist Progress Note REPORT#:[id number] REPORT STATUS: Signed DATE:10/17/18 TIME: 1315 PATIENT: GABBIE CASTANEDA UNIT #: [id number] ROOM[address]BED: [address] : [address] AGE: 78 SEX: F ATTEND: Chele Bass MD ADM AUTHOR: Vasquez Noel DO R2 * ALL edits or amendments must be made on the electronic/computer document * Subjective Chief Complaint: RLE bleeding HPI: Patient had her wound vac replaced today. Voices no complaints Review of Systems Constitutional: Denies: chills, fever. Skin: Denies: rash, swelling. Eyes: Denies: visual loss/blurred, photophobia. ENT: Denies: throat pain, throat swelling. Respiratory: Denies: SOB, wheezing. Cardiovascular: Denies: chest pain, [place] (dyspnea on exertion). GI: Denies: abdominal pain, nausea, vomiting. : Denies: dysuria, flank pain. Musculoskeletal: Reports: extremity pain. Denies: extremity swelling. Neuro: Denies: change in LOC, syncope. Objective General VS/I O: Vital Signs: Date Time Temp Pulse Resp B/P B/P Pulse O2 O2 Flow FiO2 Mean Ox Delivery Rate 10/17 1601 98.1 66 18 148/77 100.4 93 Room air 10/17 1208 98.2 63 18 141/66 90.9 94 Room air 10/17 0737 97.5 75 17 150/60 90.1 95 Room air 10/17 0406 97.5 69 20 146/66 93.1 95 Room air 10/17 0054 98.4 64 20 116/67 83.6 95 Room air 10/17 2035 72 18 137/65 89.1 95 Room air 10/17 2035 72 18 137/65 89.1 95 Room air 10/16 2034 97.5 71 18 97 10/16 2034 97.5 71 18 97 24 hour I O ending at 0700: 10/17 0700 10/16 1900 Intake Total Output Total 900 Balance -900 Output, Urine 900 Medications: Active Meds + DC'd Last 24 Hrs Sodium Biphosphate/Sodium Phosphate 1 EACH DAILY PRN PRN RECTAL (CKD) Enoxaparin Sodium 40 MG DAILY SUBQ Bisacodyl 10 MG DAILY PRN PO Bisacodyl 10 MG DAILY PRN RECTAL Ciprofloxacin HCl 500 MG BID PO Docusate Sodium 100 MG BID PRN PRN PO Magnesium Hydroxide 30 ML Q12H PRN PRN PO Morphine Sulfate 4 MG ONCE PRN IV Sodium Hypochlorite 473 ML DAILY TOPICAL (CKD) Oxycodone HCl 5 MG Q4H PRN PRN PO Potassium Chloride 20 MEQ 1800 PO Metoprolol Succinate 100 MG DAILY PO Prednisone 3 MG DAILY PO Valsartan 320 MG DAILY PO Levothyroxine Sodium 100 MCG DAILY@0600 PO Insulin Human Lispro MILD SLIDING SCALE (Thin, NPO, sensitive) AC HS SUBQ Dextrose 20 GM ASDIR PRN PO Dextrose/Water 25 GM ASDIR PRN IV Dextrose/Water 12.5 GM ASDIR PRN IV Amlodipine Besylate 10 MG 1800 PO Famotidine 20 MG Q24H PO Furosemide 20 MG 1800 PO Hydrocodone Bitart/Acetaminophen 1 TAB TID PRN PO Tramadol HCl 50 MG Q8H PRN PRN PO Acetaminophen 650 MG Q4H PRN PRN PO Hydralazine HCl 10 MG Q6H PRN PRN IV Ondansetron HCl 4 MG Q8H PRN PRN IV Physical Exam General appearance: alert, awake, oriented Head/Eyes: atraumatic, normocephalic Neck: no JVD, no masses or swelling Cardiovascular: normal heart sounds, regular rate rhythm, no murmur Respiratory: aerating well, clear to auscultation, no distress Abdomen: obese, non-tender, normal bowel sounds, soft, no guarding Extremities: moves all, no cyanosis 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 Skin: normal temperature Wound/incision: Location: R lower leg Site Condition: wound vac applied Psychiatry: normal affect, normal judgment/insight, normal mood Results Findings/Data: Laboratory Tests 10/17 10/17 10/17 10/16 1132 0625 0309 2150 Chemistry Sodium (133 - 145 MMOL/L) 143 Potassium (3.6 - 5.2 MMOL/L) 4.3 Chloride (100 - 108 MMOL/L) 108 Carbon Dioxide (22 - 32 MMOL/L) 29 BUN (6 - 20 MG/DL) 29 H Creatinine (0.60 - 1.00 MG/DL) 1.13 H Estimated GFR (MDRD) (39 - 90) 47 Glucose (65 - 99 MG/DL) 89 POC Glucose (65 - 99 MG/DL) 112 H 89 141 H Calcium (8.7 - 10.5 MG/DL) 8.4 L Magnesium (1.8 - 2.4 MG/DL) 2.0 Total Bilirubin (0.0 - 1.0 MG/DL) 0.2 AST (15 - 37 Units/L) 20 ALT (30 - 65 Units/L) 18 L Alkaline Phosphatase (50 - 136 Units/L) 89 Total Protein (6.4 - 8.2 G/DL) 5.7 L Albumin (3.4 - 5.0 G/DL) 2.3 L Globulin (1.5 - 3.8 G/DL) 3.4 Albumin/Globulin Ratio (1.1 - 2.2) 0.7 L Laboratory Tests 10/17 0309 Hematology WBC (4.80 - 10.80 x10 3/uL) 7.43 RBC (4.2 - 5.4 x10 6/uL) 3.34 L Hgb (12.0 - 16.0 G/DL) 9.9 L Hct (37 - 47 %) 30.9 L MCV (81 - 99 FL) 92.5 MCH (27 - 31 PG) 29.6 MCHC (33 - 37 G/DL) 32.0 L RDW Coeff of Skylar (11.5 - 14.5 %) 14.6 H Plt Count (150 - 450 x10 3/uL) 323 MPV (7.4 - 10.4 FL) 9.8 Neut % (Auto) (42 - 86 %) 60.8 Lymph % (Auto) (24 - 44 %) 18.2 L [place] % (Auto) (0.0 - 4.0 %) 12.5 H Eos % (Auto) (0.0 - 2.7 %) 3.8 H Baso % (Auto) (0.0 - 0.5 %) 0.8 H Eos # (Auto) (0.0 - 0.5 x10 3/uL) 0.28 Baso # (Auto) (0.0 - 0.2 x10 3/uL) 0.06 Abs Immat Gran (auto) (0.00 - 0.03 x10 3/uL) 0.29 H Absolute Neuts (auto) (1.8 - 7.7 x10 3/uL) 4.52 Absolute Lymphs (auto) (1.0 - 4.8 x10 3/uL) 1.35 Absolute Monos (auto) (0.0 - 0.8 x10 3/uL) 0.93 H Absolute Nucleated RBC (0.0 - 0.2 X10 3/uL) 0.0 Immature Gran % (0.0 - 2.0 %) 3.9 H Nucleated RBC % (0.0 - 0.0 %) 0.0 Diagnosis, Assessment Plan Hospital course to date: Assessment: - RLE wound with new purulent cellulitis, pseudomonas Aeuruginos infection sensitive to Cipro s/p evacuation of hematoma, excisional debridment skin and subcutaneous, and ligation of saphenous vein and branches on 09/25/[address] Taylor as well as washout R medial calf wound and wound vac on 09/27/[address] Taylor. Wound appeared to be infected with significant amt of yellow purulent discharge seen in wound. Wound vac now in place On 10/13/18 PROCEDURE PERFORMED: Dissection with excision and split-thickness skin grafting. OPERATING SURGEON: Akash Phelan MD - Hx of DVT and pulmonary embolism, not on anticoagulation due to recent hematoma. - Hypertension, stable BP - Gastroesophageal reflux disease, controlled - COPD, not in acute exacerbation - Asthma, not in acute exacerbation - Hyperlipidemia, clinically stable - Chronic Anemia, pt's H/H on admission 10.5; was 10.2 on 09/30/18 upon d/c - Hypothyroidism, clinically stable - IFG. HA1C 5.9 - RA on low dose prednisone, chronic pain - Gout Plan - Monitor H/H closely. - continue Cipro -Plastic surgery consulted -> Skin graft placed on 10/13/18 - Pain management - Home BP medication regimen - Continue home thyroid supplementation regimen - Mild SSI regimen. - PT/PT wound care -CM for SNF - CHF EDUCATION - DAILY WEIGHTS AND STRICT I/O DISPOSITION: - Wound vac in place. Plastic surgery consulted. Will follow up on recs, CM for snf placement. I spoke with the patient's plastic surgeon today. He has cleared the patient for discharge. Asks that the wound vac be DC in 3-4 days. Consultants: customs compliance specialist: Dr. Christy at 1632 RPT #:[id number] END OF REPORT [facility] 2018-10-17 13:15:00 [facility] ([facility]) Hospitalist Progress Note REPORT#:[id number] REPORT STATUS: Signed DATE:10/17/18 TIME: 1315 PATIENT: GABBIE CASTANEDA LITZY UNIT #: [id number] ROOM/BED: [id number] : 42 AGE: 78 SEX: F ATTEND: Chele Bass MD ADM AUTHOR: Vasquez Noel DO R2 * ALL edits or amendments must be made on the electronic/computer document * Subjective Chief Complaint: RLE bleeding HPI: Patient had her wound vac replaced today. Voices no complaints Review of Systems Constitutional: Denies: chills, fever. Skin: Denies: rash, swelling. Eyes: Denies: visual loss/blurred, photophobia. ENT: Denies: throat pain, throat swelling. Respiratory: Denies: SOB, wheezing. Cardiovascular: Denies: chest pain, [place] (dyspnea on exertion). GI: Denies: abdominal pain, nausea, vomiting. : Denies: dysuria, flank pain. Musculoskeletal: Reports: extremity pain. Denies: extremity swelling. Neuro: Denies: change in LOC, syncope. Objective General VS/I O: Vital Signs: Date Time Temp Pulse Resp B/P B/P Pulse O2 O2 Flow FiO2 Mean Ox Delivery Rate 04/29 1601 98.1 66 18 148/77 100.4 93 Room air 10/17 1208 98.2 63 18 141/66 90.9 94 Room air 10/17 0737 97.5 75 17 150/60 90.1 95 Room air 10/17 0406 97.5 69 20 146/66 93.1 95 Room air 10/17 0054 98.4 64 20 116/67 83.6 95 Room air 10/17 2035 72 18 137/65 89.1 95 Room air 10/17 2035 72 18 137/65 89.1 95 Room air 10/16 2034 97.5 71 18 97 10/16 2034 97.5 71 18 97 24 hour I O ending at 0700: 10/17 0700 10/16 1900 Intake Total Output Total 900 Balance -900 Output, Urine 900 Medications: Active Meds + DC'd Last 24 Hrs Sodium Biphosphate/Sodium Phosphate 1 EACH DAILY PRN PRN RECTAL (CKD) Enoxaparin Sodium 40 MG DAILY SUBQ Bisacodyl 10 MG DAILY PRN PO Bisacodyl 10 MG DAILY PRN RECTAL Ciprofloxacin HCl 500 MG BID PO Docusate Sodium 100 MG BID PRN PRN PO Magnesium Hydroxide 30 ML Q12H PRN PRN PO Morphine Sulfate 4 MG ONCE PRN IV Sodium Hypochlorite 473 ML DAILY TOPICAL (CKD) Oxycodone HCl 5 MG Q4H PRN PRN PO Potassium Chloride 20 MEQ 1800 PO Metoprolol Succinate 100 MG DAILY PO Prednisone 3 MG DAILY PO Valsartan 320 MG DAILY PO Levothyroxine Sodium 100 MCG DAILY@0600 PO Insulin Human Lispro MILD SLIDING SCALE (Thin, NPO, sensitive) AC HS SUBQ Dextrose 20 GM ASDIR PRN PO Dextrose/Water 25 GM ASDIR PRN IV Dextrose/Water 12.5 GM ASDIR PRN IV Amlodipine Besylate 10 MG 1800 PO Famotidine 20 MG Q24H PO Furosemide 20 MG 1800 PO Hydrocodone Bitart/Acetaminophen 1 TAB TID PRN PO Tramadol HCl 50 MG Q8H PRN PRN PO Acetaminophen 650 MG Q4H PRN PRN PO Hydralazine HCl 10 MG Q6H PRN PRN IV Ondansetron HCl 4 MG Q8H PRN PRN IV Physical Exam General appearance: alert, awake, oriented Head/Eyes: atraumatic, normocephalic Neck: no JVD, no masses or swelling Cardiovascular: normal heart sounds, regular rate rhythm, no murmur Respiratory: aerating well, clear to auscultation, no distress Abdomen: obese, non-tender, normal bowel sounds, soft, no guarding Extremities: moves all, no cyanosis 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 Skin: normal temperature Wound/incision: Location: R lower leg Site Condition: wound vac applied Psychiatry: normal affect, normal judgment/insight, normal mood Results Findings/Data: Laboratory Tests 10/17 10/17 10/17 10/16 1132 0625 0309 2150 Chemistry Sodium (133 - 145 MMOL/L) 143 Potassium (3.6 - 5.2 MMOL/L) 4.3 Chloride (100 - 108 MMOL/L) 108 Carbon Dioxide (22 - 32 MMOL/L) 29 BUN (6 - 20 MG/DL) 29 H Creatinine (0.60 - 1.00 MG/DL) 1.13 H Estimated GFR (MDRD) (39 - 90) 47 Glucose (65 - 99 MG/DL) 89 POC Glucose (65 - 99 MG/DL) 112 H 89 141 H Calcium (8.7 - 10.5 MG/DL) 8.4 L Magnesium (1.8 - 2.4 MG/DL) 2.0 Total Bilirubin (0.0 - 1.0 MG/DL) 0.2 AST (15 - 37 Units/L) 20 ALT (30 - 65 Units/L) 18 L Alkaline Phosphatase (50 - 136 Units/L) 89 Total Protein (6.4 - 8.2 G/DL) 5.7 L Albumin (3.4 - 5.0 G/DL) 2.3 L Globulin (1.5 - 3.8 G/DL) 3.4 Albumin/Globulin Ratio (1.1 - 2.2) 0.7 L Laboratory Tests 10/17 0309 Hematology WBC (4.80 - 10.80 x10 3/uL) 7.43 RBC (4.2 - 5.4 x10 6/uL) 3.34 L Hgb (12.0 - 16.0 G/DL) 9.9 L Hct (37 - 47 %) 30.9 L MCV (81 - 99 FL) 92.5 MCH (27 - 31 PG) 29.6 MCHC (33 - 37 G/DL) 32.0 L RDW Coeff of Skylar (11.5 - 14.5 %) 14.6 H Plt Count (150 - 450 x10 3/uL) 323 MPV (7.4 - 10.4 FL) 9.8 Neut % (Auto) (42 - 86 %) 60.8 Lymph % (Auto) (24 - 44 %) 18.2 L [place] % (Auto) (0.0 - 4.0 %) 12.5 H Eos % (Auto) (0.0 - 2.7 %) 3.8 H Baso % (Auto) (0.0 - 0.5 %) 0.8 H Eos # (Auto) (0.0 - 0.5 x10 3/uL) 0.28 Baso # (Auto) (0.0 - 0.2 x10 3/uL) 0.06 Abs Immat Gran (auto) (0.00 - 0.03 x10 3/uL) 0.29 H Absolute Neuts (auto) (1.8 - 7.7 x10 3/uL) 4.52 Absolute Lymphs (auto) (1.0 - 4.8 x10 3/uL) 1.35 Absolute Monos (auto) (0.0 - 0.8 x10 3/uL) 0.93 H Absolute Nucleated RBC (0.0 - 0.2 X10 3/uL) 0.0 Immature Gran % (0.0 - 2.0 %) 3.9 H Nucleated RBC % (0.0 - 0.0 %) 0.0 Diagnosis, Assessment Plan Hospital course to date: Assessment: - RLE wound with new purulent cellulitis, pseudomonas Aeuruginos infection sensitive to Cipro s/p evacuation of hematoma, excisional debridment skin and subcutaneous, and ligation of saphenous vein and branches on 09/25/[address] Taylor as well as washout R medial calf wound and wound vac on 09/27/[address] Taylor. Wound appeared to be infected with significant amt of yellow purulent discharge seen in wound. Wound vac now in place On 10/13/18 PROCEDURE PERFORMED: Dissection with excision and split-thickness skin grafting. OPERATING SURGEON: Akash Phelan MD - Hx of DVT and pulmonary embolism, not on anticoagulation due to recent hematoma. - Hypertension, stable BP - Gastroesophageal reflux disease, controlled - COPD, not in acute exacerbation - Asthma, not in acute exacerbation - Hyperlipidemia, clinically stable - Chronic Anemia, pt's H/H on admission 10.5; was 10.2 on 09/30/18 upon d/c - Hypothyroidism, clinically stable - IFG. HA1C 5.9 - RA on low dose prednisone, chronic pain - Gout Plan - Monitor H/H closely. - continue Cipro -Plastic surgery consulted -> Skin graft placed on 10/13/18 - Pain management - Home BP medication regimen - Continue home thyroid supplementation regimen - Mild SSI regimen. - PT/PT wound care -CM for SNF - CHF EDUCATION - DAILY WEIGHTS AND STRICT I/O DISPOSITION: - Wound vac in place. Plastic surgery consulted. Will follow up on recs CM for snf placement. I spoke with the patient's plastic surgeon today. He has cleared the patient for discharge. Asks that the wound vac be DC in 3-4 days. Consultants: customs compliance specialist: Dr. Christy at 1632 at 2009 RPT #:[id number] END OF REPORT [facility] 2018-10-16 11:14:00 [facility] ([facility]) Hospitalist Progress Note REPORT#:[id number] REPORT STATUS: Signed DATE:10/16/18 TIME: 1114 PATIENT: GABBIE CASTANEDA UNIT #: [id number] ROOM/BED: [address] : 42 AGE: 78 SEX: F ATTEND: Chele Bass MD ADM AUTHOR: Florida Hernandez MD * ALL edits or amendments must be made on the electronic/computer document * Subjective Chief Complaint: RLE bleeding Free Text Subj Notes Free Subj Notes: LOST IV ACCESS. WITH WOUND VAC. NO ACUTE EVENTS. SNF ARRANGEMENTS UNDERWAY Review of Systems Constitutional: Denies: chills, fever. Skin: Denies: rash, swelling. Eyes: Denies: visual loss/blurred, photophobia. ENT: Denies: throat pain, throat swelling. Respiratory: Denies: SOB, wheezing. Cardiovascular: Denies: chest pain, [place] (dyspnea on exertion). GI: Denies: abdominal pain, nausea, vomiting. : Denies: dysuria, flank pain. Musculoskeletal: Reports: extremity pain. Denies: extremity swelling. Neuro: Denies: change in LOC, syncope. Objective General VS/I O: Vital Signs: Date Time Temp Pulse Resp B/P B/P Pulse O2 O2 Flow FiO2 Mean Ox Delivery Rate 10/16 0719 97.5 58 18 154/70 98.1 95 Room air 10/16 0418 97.5 58 18 128/67 87.7 95 10/16 0025 61 18 128/71 90.2 96 10/16 0025 61 18 128/71 90.2 96 10/16 0023 97.7 60 18 120/45 69.8 95 10/16 0023 97.7 60 18 120/45 69.8 95 10/15 2054 98.4 70 18 151/71 97.5 97 10/15 1637 97.9 58 17 114/63 79.7 96 Room air 10/15 1637 97.9 58 17 114/63 79.7 96 Room air 10/15 1229 97.5 59 17 130/64 86.1 96 Room air 24 hour I O ending at 0700: 10/16 0700 10/15 1900 Intake Total 300.00 1100.00 Output Total 850 1200 Balance -550.00 -100.00 Intake, IV 200.00 400.00 Intake, Oral 100 700 Number 1 Bowel Movements Output, Urine 850 1200 Medications: Active Meds + DC'd Last 24 Hrs Ciprofloxacin HCl 500 MG BID PO (UNV) Morphine Sulfate 4 MG ONCE PRN IV Sodium Hypochlorite 473 ML DAILY TOPICAL (CKD) Oxycodone HCl 5 MG Q4H PRN PRN PO Ciprofloxacin/Dextrose 200 ML Q8H IV (DCr) Potassium Chloride 20 MEQ 1800 PO Metoprolol Succinate 100 MG DAILY PO Prednisone 3 MG DAILY PO Valsartan 320 MG DAILY PO Levothyroxine Sodium 100 MCG DAILY@0600 PO Insulin Human Lispro MILD SLIDING SCALE (Thin, NPO, sensitive) AC HS SUBQ Dextrose 20 GM ASDIR PRN PO Dextrose/Water 25 GM ASDIR PRN IV Dextrose/Water 12.5 GM ASDIR PRN IV Amlodipine Besylate 10 MG 1800 PO Famotidine 20 MG Q24H PO Furosemide 20 MG 1800 PO Hydrocodone Bitart/Acetaminophen 1 TAB TID PRN PO Tramadol HCl 50 MG Q8H PRN PRN PO Acetaminophen 650 MG Q4H PRN PRN PO Hydralazine HCl 10 MG Q6H PRN PRN IV Ondansetron HCl 4 MG Q8H PRN PRN IV Physical Exam General appearance: alert, awake, oriented Head/Eyes: atraumatic, normocephalic Neck: no JVD, no masses or swelling Cardiovascular: normal heart sounds, regular rate rhythm, no murmur Respiratory: aerating well, clear to auscultation, no distress Abdomen: obese, non-tender, normal bowel sounds, soft, no guarding Extremities: moves all, no cyanosis 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 Skin: normal temperature Wound/incision: Location: R lower leg Site Condition: wound vac applied Psychiatry: normal affect, normal judgment/insight, normal mood Results Findings/Data: Laboratory Tests 10/16 10/16 10/15 10/15 06 0406 2049 1627 Chemistry Sodium (133 - 145 MMOL/L) 143 Potassium (3.6 - 5.2 MMOL/L) 4.0 Chloride (100 - 108 MMOL/L) 107 Carbon Dioxide (22 - 32 MMOL/L) 28 BUN (6 - 20 MG/DL) 32 H Creatinine (0.60 - 1.00 MG/DL) 1.17 H Estimated GFR (MDRD) (39 - 90) 45 Glucose (65 - 99 MG/DL) 113 H POC Glucose (65 - 99 MG/DL) 108 H 119 H 104 H Calcium (8.7 - 10.5 MG/DL) 8.7 Magnesium (1.8 - 2.4 MG/DL) 2.2 Total Bilirubin (0.0 - 1.0 MG/DL) 0.2 AST (15 - 37 Units/L) 11 L ALT (30 - 65 Units/L) 9 L Alkaline Phosphatase (50 - 136 Units/L) 81 Total Protein (6.4 - 8.2 G/DL) 5.7 L Albumin (3.4 - 5.0 G/DL) 2.3 L Globulin (1.5 - 3.8 G/DL) 3.4 Albumin/Globulin Ratio (1.1 - 2.2) 0.7 L Laboratory Tests 10/16 0406 Hematology WBC (4.80 - 10.80 x10 3/uL) 7.41 RBC (4.2 - 5.4 x10 6/uL) 3.25 L Hgb (12.0 - 16.0 G/DL) 9.2 L Hct (37 - 47 %) 29.8 L MCV (81 - 99 FL) 91.7 MCH (27 - 31 PG) 28.3 MCHC (33 - 37 G/DL) 30.9 L RDW Coeff of Skylar (11.5 - 14.5 %) 14.2 Plt Count (150 - 450 x10 3/uL) 354 MPV (7.4 - 10.4 FL) 9.5 Neut % (Auto) (42 - 86 %) 64.7 Lymph % (Auto) (24 - 44 %) 19.8 L [place] % (Auto) (0.0 - 4.0 %) 10.0 H Eos % (Auto) (0.0 - 2.7 %) 2.0 Baso % (Auto) (0.0 - 0.5 %) 0.5 Eos # (Auto) (0.0 - 0.5 x10 3/uL) 0.15 Baso # (Auto) (0.0 - 0.2 x10 3/uL) 0.04 Abs Immat Gran (auto) (0.00 - 0.03 x10 3/uL) 0.22 H Absolute Neuts (auto) (1.8 - 7.7 x10 3/uL) 4.79 Absolute Lymphs (auto) (1.0 - 4.8 x10 3/uL) 1.47 Absolute Monos (auto) (0.0 - 0.8 x10 3/uL) 0.74 Absolute Nucleated RBC (0.0 - 0.2 X10 3/uL) 0.0 Immature Gran % (0.0 - 2.0 %) 3.0 H Nucleated RBC % (0.0 - 0.0 %) 0.0 Diagnosis, Assessment Plan Hospital course to date: Assessment: - RLE wound with new purulent cellulitis, pseudomonas Aeuruginos infection sensitive to Cipro s/p evacuation of hematoma, excisional debridment skin and subcutaneous, and ligation of saphenous vein and branches on 09/25/[address] Taylor as well as washout R medial calf wound and wound vac on 09/27/[address] Taylor. Wound appeared to be infected with significant amt of yellow purulent discharge seen in wound. Wound vac now in place On 10/13/18 PROCEDURE PERFORMED: Dissection with excision and split-thickness skin grafting. OPERATING SURGEON: Akash Phelan MD - Hx of DVT and pulmonary embolism, not on anticoagulation due to recent hematoma. - Hypertension, stable BP - Gastroesophageal reflux disease, controlled - COPD, not in acute exacerbation - Asthma, not in acute exacerbation - Hyperlipidemia, clinically stable - Chronic Anemia, pt's H/H on admission 10.5; was 10.2 on 09/30/18 upon d/c - Hypothyroidism, clinically stable - IFG. HA1C 5.9 - RA on low dose prednisone, chronic pain - Gout Plan - Monitor H/H closely. - continue Cipro -Plastic surgery consulted -> Skin graft placed on 10/13/18 - Pain management - Home BP medication regimen - Continue home thyroid supplementation regimen - Mild SSI regimen. - PT/PT wound care -CM for SNF - CHF EDUCATION - DAILY WEIGHTS AND STRICT I/O - LOST IV ACCESS, WILL CHANGE CIPRO TO PO - AWAIT DC PLANS TO SNF,GEN SURG RECCS ON WOUND VAC AND PLASTIC SX RECCS. DISPOSITION: - Wound vac in place. Plastic surgery consulted. Will follow up on recs, CM for snf placement Problem List/A P: 1. Cellulitis of right leg Consultants: customs compliance specialist: Dr. Christy at 1117 RPT #:[id number] END OF REPORT [facility] 2018-10-15 11:40:00 [facility] ([facility]) Hospitalist Progress Note REPORT#:[id number] REPORT STATUS: Signed DATE:10/15/18 TIME: 1140 PATIENT: GABBIE CASTANEDA LITZY UNIT #: [id number] ROOM/BED: [address]1 : 42 AGE: 78 SEX: F ATTEND: Chele Bass MD ADM AUTHOR: Florida Hernandez MD * ALL edits or amendments must be made on the electronic/computer document * Subjective Chief Complaint: RLE bleeding Free Text Subj Notes Free Subj Notes: DOING WELL. NO PAIN. NO CHEST PAIN OR SOB. NO TROUBLE WITH BM'S. URINATING OFTEN. SKING GRAFT AND WOUND VAC DOING WELL. Review of Systems Constitutional: Denies: chills, fever. Skin: Denies: rash, swelling. Eyes: Denies: visual loss/blurred, photophobia. ENT: Denies: throat pain, throat swelling. Respiratory: Denies: SOB, wheezing. Cardiovascular: Denies: chest pain, [place] (dyspnea on exertion). GI: Denies: abdominal pain, nausea, vomiting. : Denies: dysuria, flank pain. Musculoskeletal: Reports: extremity pain. Denies: extremity swelling. Neuro: Denies: change in LOC, syncope. Objective General VS/I O: Vital Signs: Date Time Temp Pulse Resp B/P B/P Pulse O2 O2 Flow FiO2 Mean Ox Delivery Rate 10/15 1637 97.9 58 17 114/63 79.7 96 Room air 10/15 1229 97.5 59 17 130/64 86.1 96 Room air 10/15 0807 97.5 62 17 129/63 85.1 95 Room air 10/15 0451 97.7 67 17 110/62 78.0 90 Room air 10/15 0451 97.7 67 17 110/62 78.0 90 Room air 10/14 2358 98.4 60 18 134/70 91.4 93 Room air 10/14 2044 98.2 61 18 130/64 86.0 93 24 hour I O ending at 0700: 10/15 0700 10/14 1900 Intake Total 350.00 Output Total Balance 350.00 Intake, IV 200.00 Intake, Oral 150 Medications: Active Meds + DC'd Last 24 Hrs Morphine Sulfate 4 MG ONCE PRN IV Sodium Hypochlorite 473 ML DAILY TOPICAL (CKD) Oxycodone HCl 5 MG Q4H PRN PRN PO Ciprofloxacin/Dextrose 200 ML Q8H IV Potassium Chloride 20 MEQ 1800 PO Metoprolol Succinate 100 MG DAILY PO Prednisone 3 MG DAILY PO Valsartan 320 MG DAILY PO Levothyroxine Sodium 100 MCG DAILY@0600 PO Insulin Human Lispro MILD SLIDING SCALE (Thin, NPO, sensitive) AC HS SUBQ Dextrose 20 GM ASDIR PRN PO Dextrose/Water 25 GM ASDIR PRN IV Dextrose/Water 12.5 GM ASDIR PRN IV Amlodipine Besylate 10 MG 1800 PO Famotidine 20 MG Q24H PO Furosemide 20 MG 1800 PO Hydrocodone Bitart/Acetaminophen 1 TAB TID PRN PO Tramadol HCl 50 MG Q8H PRN PRN PO Acetaminophen 650 MG Q4H PRN PRN PO Hydralazine HCl 10 MG Q6H PRN PRN IV Ondansetron HCl 4 MG Q8H PRN PRN IV Physical Exam General appearance: alert, awake, oriented Head/Eyes: atraumatic, normocephalic Neck: no JVD, no masses or swelling Cardiovascular: normal heart sounds, regular rate rhythm, no murmur Respiratory: aerating well, clear to auscultation, no distress Abdomen: obese, non-tender, normal bowel sounds, soft, no guarding Extremities: moves all, no cyanosis 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 Skin: normal temperature Wound/incision: Location: R lower leg Site Condition: wound vac applied Psychiatry: normal affect, normal judgment/insight, normal mood Results Findings/Data: Laboratory Tests 10/15 10/15 10/15 10/15 10/14 1627 1110 0633 0431 2042 Chemistry Sodium (133 - 145 MMOL/L) 142 Potassium (3.6 - 5.2 MMOL/L) 4.3 Chloride (100 - 108 MMOL/L) 106 Carbon Dioxide (22 - 32 MMOL/L) 28 BUN (6 - 20 MG/DL) 32 H Creatinine (0.60 - 1.00 MG/DL) 1.21 H Estimated GFR (MDRD) (39 - 90) 43 Glucose (65 - 99 MG/DL) 108 H POC Glucose (65 - 99 MG/DL) 104 H 151 H 115 H 138 H Calcium (8.7 - 10.5 MG/DL) 8.7 Magnesium (1.8 - 2.4 MG/DL) 2.2 Total Bilirubin (0.0 - 1.0 MG/DL) 0.2 AST (15 - 37 Units/L) 13 L ALT (30 - 65 Units/L) 12 L Alkaline Phosphatase (50 - 136 91 Units/L) Total Protein (6.4 - 8.2 G/DL) 6.2 L Albumin (3.4 - 5.0 G/DL) 2.5 L Globulin (1.5 - 3.8 G/DL) 3.7 Albumin/Globulin Ratio (1.1 - 2.2) 0.7 L Laboratory Tests 10/15 0431 Hematology WBC (4.80 - 10.80 x10 3/uL) 12.49 H RBC (4.2 - 5.4 x10 6/uL) 3.47 L Hgb (12.0 - 16.0 G/DL) 10.3 L Hct (37 - 47 %) 32.2 L MCV (81 - 99 FL) 92.8 MCH (27 - 31 PG) 29.7 MCHC (33 - 37 G/DL) 32.0 L RDW Coeff of Skylar (11.5 - 14.5 %) 14.2 Plt Count (150 - 450 x10 3/uL) 379 MPV (7.4 - 10.4 FL) 9.3 Neut % (Auto) (42 - 86 %) 82.1 Lymph % (Auto) (24 - 44 %) 8.3 L [place] % (Auto) (0.0 - 4.0 %) 7.8 H Eos % (Auto) (0.0 - 2.7 %) 0.1 Baso % (Auto) (0.0 - 0.5 %) 0.2 Eos # (Auto) (0.0 - 0.5 x10 3/uL) 0.01 Baso # (Auto) (0.0 - 0.2 x10 3/uL) 0.03 Abs Immat Gran (auto) (0.00 - 0.03 x10 3/uL) 0.19 H Absolute Neuts (auto) (1.8 - 7.7 x10 3/uL) 10.25 H Absolute Lymphs (auto) (1.0 - 4.8 x10 3/uL) 1.04 Absolute Monos (auto) (0.0 - 0.8 x10 3/uL) 0.97 H Absolute Nucleated RBC (0.0 - 0.2 X10 3/uL) 0.0 Immature Gran % (0.0 - 2.0 %) 1.5 Nucleated RBC % (0.0 - 0.0 %) 0.0 Diagnosis, Assessment Plan Hospital course to date: Assessment: - RLE wound with new purulent cellulitis, pseudomonas Aeuruginos infection sensitive to Cipro s/p evacuation of hematoma, excisional debridment skin and subcutaneous, and ligation of saphenous vein and branches on 09/25/[address] Taylor as well as washout R medial calf wound and wound vac on 09/27/[address] Taylor. Wound appeared to be infected with significant amt of yellow purulent discharge seen in wound. Wound vac now in place On 10/13/18 PROCEDURE PERFORMED: Dissection with excision and split-thickness skin grafting. OPERATING SURGEON: Akash Phelan MD - Hx of DVT and pulmonary embolism, not on anticoagulation due to recent hematoma. - Hypertension, stable BP - Gastroesophageal reflux disease, controlled - COPD, not in acute exacerbation - Asthma, not in acute exacerbation - Hyperlipidemia, clinically stable - Chronic Anemia, pt's H/H on admission 10.5; was 10.2 on 09/30/18 upon d/c - Hypothyroidism, clinically stable - IFG. HA1C 5.9 - RA on low dose prednisone, chronic pain - Gout Plan - Monitor H/H closely. - continue Cipro -Plastic surgery consulted -> Skin graft placed on 10/13/18 - Pain management - Home BP medication regimen - Continue home thyroid supplementation regimen - Mild SSI regimen. - PT/PT wound care -CM for SNF - CHF EDUCATION - DAILY WEIGHTS AND STRICT I/O DISPOSITION: - Wound vac in place. Plastic surgery consulted. Will follow up on recs, CM for snf placement Problem List/A P: 1. Cellulitis of right leg Orders: Procedure Date/time Status Weight Daily 10/15 1141 Active Intake Output 10/15 1141 Active NUTRITIONAL CONSULT 10/15 1141 Active Consultants: customs compliance specialist: Dr. Christy at 1718 RPT #:[id number] END OF REPORT [facility] 2018-10-14 13:47:00 [facility] ([facility]) Hospitalist Progress Note REPORT#:[id number] REPORT STATUS: Signed DATE:10/14/18 TIME: 1347 PATIENT: GABBIE CASTANEDA UNIT #: [id number] ROOM/BED: Y307-1 : 42 AGE: 78 SEX: F ATTEND: Chele Bass MD ADM AUTHOR: Vasquez Noel DO R2 * ALL edits or amendments must be made on the electronic/computer document * Subjective Chief Complaint: RLE bleeding HPI: patient had skin graft surgery yesterday, tolerated the procedure well, is currently pain free. Review of Systems Constitutional: Denies: chills, fever. Skin: Denies: rash, swelling. Eyes: Denies: visual loss/blurred, photophobia. ENT: Denies: throat pain, throat swelling. Respiratory: Denies: SOB, wheezing. Cardiovascular: Denies: chest pain, [place] (dyspnea on exertion). GI: Denies: abdominal pain, nausea, vomiting. : Denies: dysuria, flank pain. Musculoskeletal: Reports: extremity pain. Denies: extremity swelling. Neuro: Denies: change in LOC, syncope. Objective General VS/I O: Vital Signs: Date Time Temp Pulse Resp B/P B/P Pulse O2 O2 Flow FiO2 Mean Ox Delivery Rate 10/15 2043 98.2 61 18 130/64 86.0 93 10/14 1619 97.9 73 18 132/53 79.5 90 Room air 10/14 1125 98.6 71 18 152/76 101.2 93 Room air 10/14 0745 98.4 73 18 125/68 86.7 95 Room air 10/14 0344 97.5 59 15 129/76 93.7 95 Room air 10/14 0034 93 Room air 10/14 0012 97.7 54 18 117/66 83.4 93 Room air 10/13 2225 60 18 139/64 96 Room air 10/13 2220 59 20 139/60 96 Room air 10/13 2214 63 18 135/63 99 Room air 10/130 69 20 130/57 97 Nasal 3.497018 cannula 10/13 2204 68 18 127/61 96 Nasal 3.853734 cannula 10/13 2199 69 18 131/58 100 Nasal 3.792400 cannula 10/13 2155 81 18 139/63 96 Nasal 3.935247 cannula 10/134 Nasal 3.712101 cannula 10/13 2149 97.4 82 16 119/55 96 Nasal 4.975027 cannula 24 hour I O ending at 0700: 10/14 0700 10/13 1900 Intake Total Output Total 500 Balance -500 Number 1 Bowel Movements Output, 100 Drainage Output, Urine 400 Physical Exam General appearance: alert, awake, oriented Head/Eyes: atraumatic, normocephalic Neck: no JVD, no masses or swelling Cardiovascular: normal heart sounds, regular rate rhythm, no murmur Respiratory: aerating well, clear to auscultation, no distress Abdomen: obese, non-tender, normal bowel sounds, soft, no guarding Extremities: moves all, no cyanosis 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 Skin: normal temperature Wound/incision: Location: R lower leg Site Condition: wound vac applied Psychiatry: normal affect, normal judgment/insight, normal mood Diagnosis, Assessment Plan Hospital course to date: Assessment: - RLE wound with new purulent cellulitis, growing pseudomonas Aeuruginos sensitive to Cipro s/p evacuation of hematoma, excisional debridment skin and subcutaneous, and ligation of saphenous vein and branches on 09/25/[address] Taylor as well as washout R medial calf wound and wound vac on 09/27/[address] Taylor. Wound appeared to be infected with significant amt of yellow purulent discharge seen in wound. Wound vac now in place - Hx of DVT, history of pulmonary embolism, not on anticoagulation due to recent hematoma. - Hypertension, stable BP - Gastroesophageal reflux disease, controlled - COPD, not in acute exacerbation - Asthma, not in acute exacerbation - Hyperlipidemia, clinically stable - Chronic Anemia, pt's H/H on admission 10.5; was 10.2 on 09/30/18 upon d/c - Hypothyroidism, clinically stable - IFG. HA1C 5.9 - RA on low dose prednisone, pain controlled - Gout Plan - Monitor H/H closely. - continue Cipro -Plastic surgery consulted -> Skin graft placed on 10/13/18 - Pain management - Home BP medication regimen - Continue home thyroid supplementation regimen - Mild SSI regimen. - PT/PT wound care -CM for SNF DISPOSITION: - Wound vac in place. Plastic surgery consulted. Will follow up on recs, CM for snf placement Consultants: customs compliance specialist: Dr. Christy at 8964 RPT #:[id number] END OF REPORT [facility] 2018-10-14 13:47:00 [facility] ([facility]) Hospitalist Progress Note REPORT#:[id number] REPORT STATUS: Signed DATE:10/14/18 TIME: 1347 PATIENT: GABBIE CASTANEDA UNIT #: [id number] ROOM/BED: Y307-1 : 42 AGE: 78 SEX: F ATTEND: Chele Bass MD ADM AUTHOR: Vasquez Noel DO R2 * ALL edits or amendments must be made on the electronic/computer document * See Addendum Subjective Chief Complaint: RLE bleeding HPI: patient had skin graft surgery yesterday, tolerated the procedure well, is currently pain free. Review of Systems Constitutional: Denies: chills, fever. Skin: Denies: rash, swelling. Eyes: Denies: visual loss/blurred, photophobia. ENT: Denies: throat pain, throat swelling. Respiratory: Denies: SOB, wheezing. Cardiovascular: Denies: chest pain, [place] (dyspnea on exertion). GI: Denies: abdominal pain, nausea, vomiting. : Denies: dysuria, flank pain. Musculoskeletal: Reports: extremity pain. Denies: extremity swelling. Neuro: Denies: change in LOC, syncope. Objective General VS/I O: Vital Signs: Date Time Temp Pulse Resp B/P B/P Pulse O2 O2 Flow FiO2 Mean Ox Delivery Rate 10/14 2044 98.2 61 18 130/64 86.0 93 10/14 1619 97.9 73 18 132/53 79.5 90 Room air 10/14 1125 98.6 71 18 152/76 101.2 93 Room air 10/14 0745 98.4 73 18 125/68 86.7 95 Room air 10/14 0344 97.5 59 15 129/76 93.7 95 Room air 10/14 0034 93 Room air 10/14 0012 97.7 54 18 117/66 83.4 93 Room air 10/13 2225 60 18 139/64 96 Room air 10/13 2220 59 20 139/60 96 Room air 10/13 2215 63 18 135/63 99 Room air 10/13 2210 69 20 130/57 97 Nasal 3.059090 cannula 10/135 68 18 127/61 96 Nasal 3.350744 cannula 10/13 2199 69 18 131/58 100 Nasal 3.466632 cannula 10/135 81 18 139/63 96 Nasal 3.777904 cannula 10/13 2153 Nasal 3.045537 cannula 10/13 2149 97.4 82 16 119/55 96 Nasal 4.667806 cannula 24 hour I O ending at 0700: 10/14 0710/13 1900 Intake Total Output Total 500 Balance -500 Number 1 Bowel Movements Output, 100 Drainage Output, Urine 400 Physical Exam General appearance: alert, awake, oriented Head/Eyes: atraumatic, normocephalic Neck: no JVD, no masses or swelling Cardiovascular: normal heart sounds, regular rate rhythm, no murmur Respiratory: aerating well, clear to auscultation, no distress Abdomen: obese, non-tender, normal bowel sounds, soft, no guarding Extremities: moves all, no cyanosis 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 Skin: normal temperature Wound/incision: Location: R lower leg Site Condition: wound vac applied Psychiatry: normal affect, normal judgment/insight, normal mood Diagnosis, Assessment Plan Hospital course to date: Assessment: - RLE wound with new purulent cellulitis, growing pseudomonas Aeuruginos sensitive to Cipro s/p evacuation of hematoma, excisional debridment skin and subcutaneous, and ligation of saphenous vein and branches on 09/25/[address] Taylor as well as washout R medial calf wound and wound vac on 09/27/[address] Taylor. Wound appeared to be infected with significant amt of yellow purulent discharge seen in wound. Wound vac now in place - Hx of DVT, history of pulmonary embolism, not on anticoagulation due to recent hematoma. - Hypertension, stable BP - Gastroesophageal reflux disease, controlled - COPD, not in acute exacerbation - Asthma, not in acute exacerbation - Hyperlipidemia, clinically stable - Chronic Anemia, pt's H/H on admission 10.5; was 10.2 on 09/30/18 upon d/c - Hypothyroidism, clinically stable - IFG. HA1C 5.9 - RA on low dose prednisone, pain controlled - Gout Plan - Monitor H/H closely. - continue Cipro -Plastic surgery consulted -> Skin graft placed on 10/13/18 - Pain management - Home BP medication regimen - Continue home thyroid supplementation regimen - Mild SSI regimen. - PT/PT wound care -CM for SNF DISPOSITION: - Wound vac in place. Plastic surgery consulted. Will follow up on recs, CM for snf placement Consultants: customs compliance specialist: Dr. Christy at 2149 Addendum 1: 10/14/182151 by Vasquez Noel DO R2 for Chele Bass MD PLEASE DISREGARD COSIGNER DR. RIBEIRO, THIS IS DR. BASS'S PATIENT AND WAS ACCIDENTLY COSIGNED TO DR. RIBEIRO. DR. RIBEIRO HAS NOT BEEN INVOLVED IN THE PATIENT'S CARE DURING THIS HOSPITALIZATION at 2155 RPT #:[id number] END OF REPORT [facility] 2018-10-14 13:47:00 [facility] ([facility] Hospitalist Progress Note REPORT#:[id number] REPORT STATUS: Signed DATE:10/14/18 TIME: 134 PATIENT: GABBIE CASTANEDA UNIT #: [id number] ROOM/BED: [address] : 42 AGE: 78 SEX: F ATTEND: Chele Bass MD ADM AUTHOR: Vasquez Noel DO R2 * ALL edits or amendments must be made on the electronic/computer document * See Addendum Subjective Chief Complaint: RLE bleeding HPI: patient had skin graft surgery yesterday, tolerated the procedure well, is currently pain free. Review of Systems Constitutional: Denies: chills, fever. Skin: Denies: rash, swelling. Eyes: Denies: visual loss/blurred, photophobia. ENT: Denies: throat pain, throat swelling. Respiratory: Denies: SOB, wheezing. Cardiovascular: Denies: chest pain, [place] (dyspnea on exertion). GI: Denies: abdominal pain, nausea, vomiting. : Denies: dysuria, flank pain. Musculoskeletal: Reports: extremity pain. Denies: extremity swelling. Neuro: Denies: change in LOC, syncope. Objective General VS/I O: Vital Signs: Date Time Temp Pulse Resp B/P B/P Pulse O2 O2 Flow FiO2 Mean Ox Delivery Rate 10/144 98.2 61 18 130/64 86.0 93 10/14 1619 97.9 73 18 132/53 79.5 90 Room air 10/14 1125 98.6 71 18 152/76 101.2 93 Room air 10/14 0745 98.4 73 18 125/68 86.7 95 Room air 10/14 0344 97.5 59 15 129/76 93.7 95 Room air 10/14 0034 93 Room air 10/14 0012 97.7 54 18 117/66 83.4 93 Room air 10/13 2225 60 18 139/64 96 Room air 10/13 2220 59 20 139/60 96 Room air 10/13 2215 63 18 135/63 99 Room air 10/13 221 69 20 130/57 97 Nasal 3.175854 cannula 10/13 2204 68 18 127/61 96 Nasal 3.658531 cannula 10/13 2199 69 18 131/58 100 Nasal 3.610336 cannula 10/13 215 81 18 139/63 96 Nasal 3.501055 cannula 10/13 2154 Nasal 3.955307 cannula 10/13 215 97.4 82 16 119/55 96 Nasal 4.022003 cannula 24 hour I O ending at 0700: 10/14 0700 10/13 1900 Intake Total Output Total 500 Balance -500 Number 1 Bowel Movements Output, 100 Drainage Output, Urine 400 Physical Exam General appearance: alert, awake, oriented Head/Eyes: atraumatic, normocephalic Neck: no JVD, no masses or swelling Cardiovascular: normal heart sounds, regular rate rhythm, no murmur Respiratory: aerating well, clear to auscultation, no distress Abdomen: obese, non-tender, normal bowel sounds, soft, no guarding Extremities: moves all, no cyanosis 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 Skin: normal temperature Wound/incision: Location: R lower leg Site Condition: wound vac applied Psychiatry: normal affect, normal judgment/insight, normal mood Diagnosis, Assessment Plan Hospital course to date: Assessment: - RLE wound with new purulent cellulitis, growing pseudomonas Aeuruginos sensitive to Cipro s/p evacuation of hematoma, excisional debridment skin and subcutaneous, and ligation of saphenous vein and branches on 09/25/[address] Taylor as well as washout R medial calf wound and wound vac on 09/27/[address] Taylor. Wound appeared to be infected with significant amt of yellow purulent discharge seen in wound. Wound vac now in place - Hx of DVT, history of pulmonary embolism, not on anticoagulation due to recent hematoma. - Hypertension, stable BP - Gastroesophageal reflux disease, controlled - COPD, not in acute exacerbation - Asthma, not in acute exacerbation - Hyperlipidemia, clinically stable - Chronic Anemia, pt's H/H on admission 10.5; was 10.2 on 09/30/18 upon d/c - Hypothyroidism, clinically stable - IFG. HA1C 5.9 - RA on low dose prednisone, pain controlled - Gout Plan - Monitor H/H closely. - continue Cipro -Plastic surgery consulted -> Skin graft placed on 10/13/18 - Pain management - Home BP medication regimen - Continue home thyroid supplementation regimen - Mild SSI regimen. - PT/PT wound care -CM for SNF DISPOSITION: - Wound vac in place. Plastic surgery consulted. Will follow up on recs, CM for snf placement Consultants: customs compliance specialist: Dr. Christy at 2149 Addendum 1: 10/14/182151 by Vasquez Noel DO R2 PLEASE DISREGARD COSIGNER DR. RIBEIRO, THIS IS DR. BASS'S PATIENT AND WAS ACCIDENTLY COSIGNED TO DR. RIBEIRO. DR. RIBEIRO HAS NOT BEEN INVOLVED IN THE PATIENT'S CARE DURING THIS HOSPITALIZATION at 2155 at 2008 RPT #:[id number] END OF REPORT [facility] 2018-10-14 13:47:00 [facility] ([facility] Hospitalist Progress Note REPORT#:[id number] REPORT STATUS: Signed DATE:10/14/18 TIME: 1346 PATIENT: GABBIE CASTANEDA UNIT #: [id number] ROOM[address]BED: [address] : 42 AGE: 78 SEX: F ATTEND: Chele Bass MD ADM AUTHOR: Vasquez Noel DO R2 * ALL edits or amendments must be made on the electronic/computer document * See Addendum Vasquez Noel 10/14/18 1347: Subjective Chief Complaint: RLE bleeding HPI: patient had skin graft surgery yesterday, tolerated the procedure well, is currently pain free. Review of Systems Constitutional: Denies: chills, fever. Skin: Denies: rash, swelling. Eyes: Denies: visual loss/blurred, photophobia. ENT: Denies: throat pain, throat swelling. Respiratory: Denies: SOB, wheezing. Cardiovascular: Denies: chest pain, WHITT[place] (dyspnea on exertion). GI: Denies: abdominal pain, nausea, vomiting. : Denies: dysuria, flank pain. Musculoskeletal: Reports: extremity pain. Denies: extremity swelling. Neuro: Denies: change in LOC, syncope. Objective General VS/I O: Vital Signs: Date Time Temp Pulse Resp B/P B/P Pulse O2 O2 Flow FiO2 Mean Ox Delivery Rate 10/14 204 98.2 61 18 130/64 86.0 93 10/14 1619 97.9 73 18 132/53 79.5 90 Room air 10/14 1125 98.6 71 18 152/76 101.2 93 Room air 10/14 0745 98.4 73 18 125/68 86.7 95 Room air 10/14 0344 97.5 59 15 129/76 93.7 95 Room air 10/14 0034 93 Room air 10/14 0012 97.7 54 18 117/66 83.4 93 Room air 10/13 2225 60 18 139/64 96 Room air 10/13 2220 59 20 139/60 96 Room air 10/13 2215 63 18 135/63 99 Room air 10/13 2210 69 20 130/57 97 Nasal 3.856820 cannula 10/13 2204 68 18 127/61 96 Nasal 3.126924 cannula 10/130 69 18 131/58 100 Nasal 3.572375 cannula 10/13 2155 81 18 139/63 96 Nasal 3.121861 cannula 10/13 2154 Nasal 3.031402 cannula 10/13 2150 97.4 82 16 119/55 96 Nasal 4.116210 cannula 24 hour I O ending at 0700: 10/14 0700 10/13 1900 Intake Total Output Total 500 Balance -500 Number 1 Bowel Movements Output, 100 Drainage Output, Urine 400 Physical Exam General appearance: alert, awake, oriented Head/Eyes: atraumatic, normocephalic Neck: no JVD, no masses or swelling Cardiovascular: normal heart sounds, regular rate rhythm, no murmur Respiratory: aerating well, clear to auscultation, no distress Abdomen: obese, non-tender, normal bowel sounds, soft, no guarding Extremities: moves all, no cyanosis 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 Skin: normal temperature Wound/incision: Location: R lower leg Site Condition: wound vac applied Psychiatry: normal affect, normal judgment/insight, normal mood Diagnosis, Assessment Plan Hospital course to date: Assessment: - RLE wound with new purulent cellulitis, growing pseudomonas Aeuruginos sensitive to Cipro s/p evacuation of hematoma, excisional debridment skin and subcutaneous, and ligation of saphenous vein and branches on 09/25/[address] Taylor as well as washout R medial calf wound and wound vac on 09/27/[address] Taylor. Wound appeared to be infected with significant amt of yellow purulent discharge seen in wound. Wound vac now in place - Hx of DVT, history of pulmonary embolism, not on anticoagulation due to recent hematoma. - Hypertension, stable BP - Gastroesophageal reflux disease, controlled - COPD, not in acute exacerbation - Asthma, not in acute exacerbation - Hyperlipidemia, clinically stable - Chronic Anemia, pt's H/H on admission 10.5; was 10.2 on 09/30/18 upon d/c - Hypothyroidism, clinically stable - IFG. HA1C 5.9 - RA on low dose prednisone, pain controlled - Gout Plan - Monitor H/H closely. - continue Cipro -Plastic surgery consulted -> Skin graft placed on 10/13/18 - Pain management - Home BP medication regimen - Continue home thyroid supplementation regimen - Mild SSI regimen. - PT/PT wound care -CM for SNF DISPOSITION: - Wound vac in place. Plastic surgery consulted. Will follow up on recs, CM for snf placement Consultants: customs compliance specialist: Lv Villeda 11/21/18 0852: Diagnosis, Assessment Plan Additional comments: I have personally interviewed and examined the patient on 10/14/18. All charts, labs, and imaging studies were reviewed. I agree with the Resident's findings, exam, and plan. at 2147 Addendum 1: 10/14/18 2152 by Vasquez Noel DO R2 PLEASE DISREGARD COSIGNER DR. RIBEIRO, THIS IS DR. BASS'S PATIENT AND WAS ACCIDENTLY COSIGNED TO DR. RIBEIRO. DR. RIBEIRO HAS NOT BEEN INVOLVED IN THE PATIENT'S CARE DURING THIS HOSPITALIZATION at 2155 at 2009 RPT #:[id number] END OF REPORT [facility] 2018-10-14 13:47:00 [facility] ([facility]) Hospitalist Progress Note REPORT#:[id number] REPORT STATUS: Signed DATE:10/14/18 TIME: 1346 PATIENT: GABBIE CASTANEDA UNIT #: [id number] ROOM/BED: [id number] : 42 AGE: 78 SEX: F ATTEND: Chele Bass MD ADM AUTHOR: Vasquez Noel DO R2 * ALL edits or amendments must be made on the electronic/computer document * See Addendum Vasquez Noel 10/14/18 1347: Subjective Chief Complaint: RLE bleeding HPI: patient had skin graft surgery yesterday, tolerated the procedure well, is currently pain free. Review of Systems Constitutional: Denies: chills, fever. Skin: Denies: rash, swelling. Eyes: Denies: visual loss/blurred, photophobia. ENT: Denies: throat pain, throat swelling. Respiratory: Denies: SOB, wheezing. Cardiovascular: Denies: chest pain, [place]ITT[place] (dyspnea on exertion). GI: Denies: abdominal pain, nausea, vomiting. : Denies: dysuria, flank pain. Musculoskeletal: Reports: extremity pain. Denies: extremity swelling. Neuro: Denies: change in LOC, syncope. Objective General VS/I O: Vital Signs: Date Time Temp Pulse Resp B/P B/P Pulse O2 O2 Flow FiO2 Mean Ox Delivery Rate 10/14 2044 98.2 61 18 130/64 86.0 93 10/14 1619 97.9 73 18 132/53 79.5 90 Room air 10/14 1125 98.6 71 18 152/76 101.2 93 Room air 10/14 0745 98.4 73 18 125/68 86.7 95 Room air 10/14 0344 97.5 59 15 129/76 93.7 95 Room air 10/14 0034 93 Room air 10/14 0012 97.7 54 18 117/66 83.4 93 Room air 10/13 2225 60 18 139/64 96 Room air 10/13 2220 59 20 139/60 96 Room air 10/13 2215 63 18 135/63 99 Room air 10/13 2210 69 20 130/57 97 Nasal 3.736332 cannula 10/13 2204 68 18 127/61 96 Nasal 3.482294 cannula 10/13 2199 69 18 131/58 100 Nasal 3.741973 cannula 10/13 2154 81 18 139/63 96 Nasal 3.182146 cannula 10/13 2154 Nasal 3.830816 cannula 10/13 2149 97.4 82 16 119/55 96 Nasal 4.919234 cannula 24 hour I O ending at 0700: 10/14 0700 10/13 1900 Intake Total Output Total 500 Balance -500 Number 1 Bowel Movements Output, 100 Drainage Output, Urine 400 Physical Exam General appearance: alert, awake, oriented Head/Eyes: atraumatic, normocephalic Neck: no JVD, no masses or swelling Cardiovascular: normal heart sounds, regular rate rhythm, no murmur Respiratory: aerating well, clear to auscultation, no distress Abdomen: obese, non-tender, normal bowel sounds, soft, no guarding Extremities: moves all, no cyanosis 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 Skin: normal temperature Wound/incision: Location: R lower leg Site Condition: wound vac applied Psychiatry: normal affect, normal judgment/insight, normal mood Diagnosis, Assessment Plan Hospital course to date: Assessment: - RLE wound with new purulent cellulitis, growing pseudomonas Aeuruginos sensitive to Cipro s/p evacuation of hematoma, excisional debridment skin and subcutaneous, and ligation of saphenous vein and branches on 09/25/[address] Taylor as well as washout R medial calf wound and wound vac on 09/27/[address] Taylor. Wound appeared to be infected with significant amt of yellow purulent discharge seen in wound. Wound vac now in place - Hx of DVT, history of pulmonary embolism, not on anticoagulation due to recent hematoma. - Hypertension, stable BP - Gastroesophageal reflux disease, controlled - COPD, not in acute exacerbation - Asthma, not in acute exacerbation - Hyperlipidemia, clinically stable - Chronic Anemia, pt's H/H on admission 10.5; was 10.2 on 09/30/18 upon d/c - Hypothyroidism, clinically stable - IFG. HA1C 5.9 - RA on low dose prednisone, pain controlled - Gout Plan - Monitor H/H closely. - continue Cipro -Plastic surgery consulted -> Skin graft placed on 10/13/18 - Pain management - Home BP medication regimen - Continue home thyroid supplementation regimen - Mild SSI regimen. - PT/PT wound care -CM for SNF DISPOSITION: - Wound vac in place. Plastic surgery consulted. Will follow up on recs, CM for snf placement Consultants: customs compliance specialist: Lv Villeda 11/21/18 0852: Diagnosis, Assessment Plan Additional comments: I have personally interviewed and examined the patient on 10/14/18. All charts, labs, and imaging studies were reviewed. I agree with the Resident's findings, exam, and plan. at 2149 at 0906 Addendum 1: 10/14/18 2152 by Vasquez Noel PLEASE DISREGARD COSIGNER DR. RIBEIRO, THIS IS DR. BASS'S PATIENT AND WAS ACCIDENTLY COSIGNED TO DR. RIBEIRO. DR. RIBEIRO HAS NOT BEEN INVOLVED IN THE PATIENT'S CARE DURING THIS HOSPITALIZATION at 2155 at 2009 RPT #:[id number] END OF REPORT [facility] 2018-10-13 21:51:00 [id number] [place], [place] PATIENT NAME: GABBIE CASTANEDA ADMIT DATE: 10/09/18 ACCOUNT NO: [id number] ROOM NO: D.Y307 AGE: 78 REPORT TYPE: OPERATIVE REPORT SEX: F ADMITTING PHYSICIAN:Chele Bass MD ATTENDING PHYSICIAN:Chele Bass MD OPERATION DATE: 10/13/2018 INDICATIONS: The patient is a 78-year-old female with a large right lower extremity wound. After understanding her options, she desires excision of the wound and cover with a skin graft. She understands the risks of bleeding, infection, loss of the graft, and need for additional surgery. After informed consent was obtained, we proceeded with surgery. Benefits, risks, alternatives, and expectations were discussed. PREOPERATIVE DIAGNOSIS: Right leg wound. POSTOPERATIVE DIAGNOSIS: Right leg wound. PROCEDURE PERFORMED: Dissection with excision and split-thickness skin grafting. OPERATING SURGEON: Akash Phelan MD PROPELLER LAYOUT WORKER: ANESTHESIA: General endotracheal anesthesia. COMPLICATIONS: None. SPECIMEN SENT: None. ESTIMATED BLOOD LOSS: 20 mL. FINDINGS: A 9 x 18 cm wound excised and covered with split-thickness skin graft. A wound VAC placed. TECHNIQUE: After informed consent was obtained from the patient, the patient was brought to the room and placed on table in supine position. General endotracheal anesthesia induced by the anesthesia team. The patient was prepped and draped in the usual sterile fashion. I excised the wound, removing all the granulation tissue, get good healthy bed. Hemostasis was obtained with Telfa soaked to 1:1 million epinephrine. The harvested skin graft 10/1000th of an inch thick from the right thigh, measured 3 to 1 and secured with serina in the right lower extremity. Adaptic, antibiotic ointment, and a wound VAC was applied and a good seal was confirmed. After obtaining hemostasis in the donor site, Tegaderm dressings were applied. The patient was extubated and transferred to the recovery room. Dictated By: Akash Phelan MD PATIENT NAME: GABBIE CASTANEDA WT: OP:SERENE/VINNIE/KEISHA Conf#: [id number]/DID#: [id number] Authenticated by Akash Phelan MD On 12/15/2018 12:04:42 PM at 1205 PATIENT NAME: GABBIE CASTANEDA [facility] 2018-10-13 10:40:00 [facility] ([facility]) Wound Care Progress Note REPORT#:[id number] REPORT STATUS: Signed DATE:10/13/18 TIME: 1040 PATIENT: GABBIE CASTANEDA UNIT #: [id number] ROOM/BED: [id number] : 42 AGE: 78 SEX: F ATTEND: Chele Bass MD ADM AUTHOR: Benji Stinson * ALL edits or amendments must be made on the electronic/computer document * Subjective Chief Complaint: Slow Healing Right LE Wound HPI: Pt is a 78 y/o F with Hx of DVT, prior PE, hypertension, GERD, COPD, asthma, and hyperlipidemia that presents with a slow healing RLE wound and wound vac in place. She recently had positive cultures for Pseudomonas at the wound. Currently she admits to mild pain at the wound/woundvac which becomes severe, /10, with manipulation of the wound and surrounding tissue. She denies any issues with the wound otherwise and admits to the Veraflow/Woundvac Irrigation being in place since yesterday dressing change. She also admits to speaking with Dr. Bustos regarding possibility of skin graft placement today or early next week. Review of Systems Constitutional: Denies: chills, fatigue, fever. Skin: Denies: bruising, itching. Allergy/Immun: Denies: allergic reaction, itching. Eyes: Denies: redness, discharge, visual loss/blurred, photophobia. ENT: Denies: ear drainage, earache, nasal congestion. Respiratory: Denies: WHITTINGTON (dyspnea on exertion), pleuritic pain, SOB. Cardiovascular: Denies: chest pain, [place]ITT[place] (dyspnea on exertion), edema, palpitations. GI: Denies: abdominal pain, diarrhea, nausea, vomiting. : Denies: dysuria, hematuria. Musculoskeletal: Denies: extremity swelling, lumbar pain. Endocrine: Denies: polydipsia, polyuria. Neuro: Denies: headache, lightheaded, seizure. Psych: Denies: agitation, anxiety. Objective Physical Exam VS: Last Documented: Result Date Time Pulse Ox 90 10/13 0748 B/P 134/62 10/13 0748 B/P Mean 85.8 10/13 0648 O2 Delivery Room air 10/14 747 Temp 97.5 10/14 747 Pulse 61 10/14 747 Resp 18 10/14 747 General appearance: alert, awake, oriented, no acute distress Head/eyes: atraumatic, EOMI, normocephalic ENT: moist mucosal membranes, normal nose Neck: full range of motion, non-tender, no masses or swelling Cardiovascular: normal capillary refill, regular rate rhythm Respiratory: clear to auscultation, no distress Abdomen: non-tender, no distention, no guarding Extremities: calf tenderness (Right Calf/Wound site), moves all, no edema Musculoskeletal: full range of motion, no midline vertebral tend 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, oriented X 3, CN II-XII intact, no motor deficits Wound Assessment Wound Assessment 1: Type/cause: pressure (+Pseudomonas Aero), post-op Wound location: lower extremity Tissue layers: muscle w/out necrosis Site condition: granulating, edges approximated, Sanguinous drainage + Pseudomonas Aero Wound margins: distinct outline attached Jaz-wound: erythema Treatment Prophylaxis Treatment Prophylaxis Ernandez documentation: The data below has been imported from nursing documentation. Any exceptions have been noted below under Provider comments. _ Nursing Documentation Date ernandez inserted: Date ernandez discontinued: _ Provider comments: [] Diagnosis, Assessment Plan Problem List/A P: 1. Encounter for postoperative wound care 2. Cellulitis of right leg 3. Musculoskeletal pain Free Text A P: Continue current plan with Woundvac use, assisted with Acetic Acid veraflow treatments. Will continue to monitor the wound's progress while awaiting possible graft from Dr. Bustos. Continue IV antibiotics with Cipro as ordered. Continue current pain medication regimen. Will need outpatient follow up with Dr. Vivas within 1 week of discharge. We will continue to monitor progression in the hospital. at 1058 RPT #:[id number] END OF REPORT [facility] 2018-10-13 10:40:00 [facility] ([facility]) Wound Care Progress Note REPORT#:[id number] REPORT STATUS: Signed DATE:10/13/18 TIME: 1040 PATIENT: GABBIE CASTANEDA LITZY UNIT #: [id number] ROOM[address]BED: [address] : [address] AGE: 78 SEX: F ATTEND: Chele Bass MD ADM AUTHOR: Benji Stinson * ALL edits or amendments must be made on the electronic/computer document * Subjective Chief Complaint: Slow Healing Right LE Wound HPI: Pt is a 78 y/o F with Hx of DVT, prior PE, hypertension, GERD, COPD, asthma, and hyperlipidemia that presents with a slow healing RLE wound and wound vac in place. She recently had positive cultures for Pseudomonas at the wound. Currently she admits to mild pain at the wound/woundvac which becomes severe, 10 /10, with manipulation of the wound and surrounding tissue. She denies any issues with the wound otherwise and admits to the Veraflow/Woundvac Irrigation being in place since yesterday dressing change. She also admits to speaking with Dr. Bustos regarding possibility of skin graft placement today or early next week. Review of Systems Constitutional: Denies: chills, fatigue, fever. Skin: Denies: bruising, itching. Allergy/Immun: Denies: allergic reaction, itching. Eyes: Denies: redness, discharge, visual loss/blurred, photophobia. ENT: Denies: ear drainage, earache, nasal congestion. Respiratory: Denies: WHITT[place] (dyspnea on exertion), pleuritic pain, SOB. Cardiovascular: Denies: chest pain, [place]ITT[place] (dyspnea on exertion), edema, palpitations. GI: Denies: abdominal pain, diarrhea, nausea, vomiting. : Denies: dysuria, hematuria. Musculoskeletal: Denies: extremity swelling, lumbar pain. Endocrine: Denies: polydipsia, polyuria. Neuro: Denies: headache, lightheaded, seizure. Psych: Denies: agitation, anxiety. Objective Physical Exam VS: Last Documented: Result Date Time Pulse Ox 90 10/14 747 B/P 134/62 10/14 747 B/P Mean 85.8 10/14 747 O2 Delivery Room air 10/14 747 Temp 97.5 10/14 747 Pulse 61 10/14 747 Resp 18 10/14 747 General appearance: alert, awake, oriented, no acute distress Head/eyes: atraumatic, EOMI, normocephalic ENT: moist mucosal membranes, normal nose Neck: full range of motion, non-tender, no masses or swelling Cardiovascular: normal capillary refill, regular rate rhythm Respiratory: clear to auscultation, no distress Abdomen: non-tender, no distention, no guarding Extremities: calf tenderness (Right Calf/Wound site), moves all, no edema Musculoskeletal: full range of motion, no midline vertebral tend 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, oriented X 3, CN II-XII intact, no motor deficits Wound Assessment Wound Assessment 1: Type/cause: pressure (+Pseudomonas Aero), post-op Wound location: lower extremity Tissue layers: muscle w/out necrosis Site condition: granulating, edges approximated, Sanguinous drainage + Pseudomonas Aero Wound margins: distinct outline attached Jaz-wound: erythema Treatment Prophylaxis Treatment Prophylaxis Ernandez documentation: The data below has been imported from nursing documentation. Any exceptions have been noted below under Provider comments. _ Nursing Documentation Date ernandez inserted: Date ernandez discontinued: _ Provider comments: [] Diagnosis, Assessment Plan Problem List/A P: 1. Encounter for postoperative wound care 2. Cellulitis of right leg 3. Musculoskeletal pain Free Text A P: Continue current plan with Woundvac use, assisted with Acetic Acid veraflow treatments. Will continue to monitor the wound's progress while awaiting possible graft from Dr. Bustos. Continue IV antibiotics with Cipro as ordered. Continue current pain medication regimen. Will need outpatient follow up with Dr. Vivas within 1 week of discharge. We will continue to monitor progression in the hospital. at 1058 at 1031 RPT #:[id number] END OF REPORT [facility] 2018-10-13 10:40:00 [facility] ([facility] Wound Care Progress Note REPORT#:[id number] REPORT STATUS: Signed DATE:10/13/18 TIME: 1040 PATIENT: GABBIE CASTANEDA LITZY UNIT #: [id number] ROOM[address]BED: [address] : [address] AGE: 78 SEX: F ATTEND: Chele Bass MD ADM AUTHOR: Benji Stinson * ALL edits or amendments must be made on the electronic/computer document * Subjective Chief Complaint: Slow Healing Right LE Wound HPI: Pt is a 78 y/o F with Hx of DVT, prior PE, hypertension, GERD, COPD, asthma, and hyperlipidemia that presents with a slow healing RLE wound and wound vac in place. She recently had positive cultures for Pseudomonas at the wound. Currently she admits to mild pain at the wound/woundvac which becomes severe, 10 /10, with manipulation of the wound and surrounding tissue. She denies any issues with the wound otherwise and admits to the Veraflow/Woundvac Irrigation being in place since yesterday dressing change. She also admits to speaking with Dr. Bustos regarding possibility of skin graft placement today or early next week. Review of Systems Constitutional: Denies: chills, fatigue, fever. Skin: Denies: bruising, itching. Allergy/Immun: Denies: allergic reaction, itching. Eyes: Denies: redness, discharge, visual loss/blurred, photophobia. ENT: Denies: ear drainage, earache, nasal congestion. Respiratory: Denies: WHITT[place] (dyspnea on exertion), pleuritic pain, SOB. Cardiovascular: Denies: chest pain, [place]ITT[place] (dyspnea on exertion), edema, palpitations. GI: Denies: abdominal pain, diarrhea, nausea, vomiting. : Denies: dysuria, hematuria. Musculoskeletal: Denies: extremity swelling, lumbar pain. Endocrine: Denies: polydipsia, polyuria. Neuro: Denies: headache, lightheaded, seizure. Psych: Denies: agitation, anxiety. Objective Physical Exam VS: Last Documented: Result Date Time Pulse Ox 90 10/14 747 B/P 134/62 10/13 0748 B/P Mean 85.8 10/13 0748 O2 Delivery Room air 10/14 747 Temp 97.5 10/13 0648 Pulse 61 10/13 0748 Resp 18 10/13 0648 General appearance: alert, awake, oriented, no acute distress Head/eyes: atraumatic, EOMI, normocephalic ENT: moist mucosal membranes, normal nose Neck: full range of motion, non-tender, no masses or swelling Cardiovascular: normal capillary refill, regular rate rhythm Respiratory: clear to auscultation, no distress Abdomen: non-tender, no distention, no guarding Extremities: calf tenderness (Right Calf/Wound site), moves all, no edema Musculoskeletal: full range of motion, no midline vertebral tend 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, oriented X 3, CN II-XII intact, no motor deficits Wound Assessment Wound Assessment 1: Type/cause: pressure (+Pseudomonas Aero), post-op Wound location: lower extremity Tissue layers: muscle w/out necrosis Site condition: granulating, edges approximated, Sanguinous drainage + Pseudomonas Aero Wound margins: distinct outline attached Jaz-wound: erythema Treatment Prophylaxis Treatment Prophylaxis Ernandez documentation: The data below has been imported from nursing documentation. Any exceptions have been noted below under Provider comments. _ Nursing Documentation Date ernandez inserted: Date ernandez discontinued: _ Provider comments: [] Diagnosis, Assessment Plan Problem List/A P: 1. Encounter for postoperative wound care 2. Cellulitis of right leg 3. Musculoskeletal pain Free Text A P: Continue current plan with Woundvac use, assisted with Acetic Acid veraflow treatments. Will continue to monitor the wound's progress while awaiting possible graft from Dr. Bustos. Continue IV antibiotics with Cipro as ordered. Continue current pain medication regimen. Will need outpatient follow up with Dr. Vivas within 1 week of discharge. We will continue to monitor progression in the hospital. at 1058 RPT #:[id number] END OF REPORT [facility] 2018-10-13 06:15:00 [facility] ([facility]) Hospitalist Progress Note REPORT#:[id number] REPORT STATUS: Signed DATE:10/13/18 TIME: 614 PATIENT: GABBIE CASTANEDA UNIT #: [id number] ROOM/BED: Y307-1 : 42 AGE: 78 SEX: F ATTEND: Chele Bass MD ADM AUTHOR: Vasquez Noel DO R2 * ALL edits or amendments must be made on the electronic/computer document * Subjective Chief Complaint: RLE bleeding HPI: patient seen and examined. She reports that her pain is under control. To have a skin graft this afternoon. Review of Systems Constitutional: Denies: chills, fever. Skin: Denies: rash, swelling. Eyes: Denies: visual loss/blurred, photophobia. ENT: Denies: throat pain, throat swelling. Respiratory: Denies: SOB, wheezing. Cardiovascular: Denies: chest pain, WHITT[place] (dyspnea on exertion). GI: Denies: abdominal pain, nausea, vomiting. : Denies: dysuria, flank pain. Musculoskeletal: Reports: extremity pain. Denies: extremity swelling. Neuro: Denies: change in LOC, syncope. Objective General VS/I O: Vital Signs: Date Time Temp Pulse Resp B/P B/P Pulse O2 O2 Flow FiO2 Mean Ox Delivery Rate 10/13 1403 94 10/13 1117 97.9 61 18 148/67 94.2 91 Room air 10/13 0748 97.5 61 18 134/62 85.8 90 Room air 10/13 0439 98.1 67 22 132/67 88.7 95 10/13 0001 97.9 66 20 130/63 85.3 93 10/12 2005 97.9 74 18 147/76 100.0 94 10/12 1645 98.8 62 20 123/57 78.8 94 24 hour I O ending at 0700: 10/13 0700 10/12 1900 Intake Total Output Total 50 50 Balance -50 -50 Output, 50 50 Drainage Medications: Active Meds + DC'd Last 24 Hrs Sodium Hypochlorite 473 ML DAILY TOPICAL (CKD) Oxycodone HCl 5 MG Q4H PRN PRN PO Ciprofloxacin/Dextrose 200 ML Q8H IV Potassium Chloride 20 MEQ 1800 PO Metoprolol Succinate 100 MG DAILY PO Prednisone 3 MG DAILY PO Valsartan 320 MG DAILY PO Levothyroxine Sodium 100 MCG DAILY@0600 PO Insulin Human Lispro MILD SLIDING SCALE (Thin, NPO, sensitive) AC HS SUBQ Dextrose 20 GM ASDIR PRN PO Dextrose/Water 25 GM ASDIR PRN IV Dextrose/Water 12.5 GM ASDIR PRN IV Amlodipine Besylate 10 MG 1800 PO Famotidine 20 MG Q24H PO Furosemide 20 MG 1800 PO Hydrocodone Bitart/Acetaminophen 1 TAB TID PRN PO Tramadol HCl 50 MG Q8H PRN PRN PO Acetaminophen 650 MG Q4H PRN PRN PO Hydralazine HCl 10 MG Q6H PRN PRN IV Ondansetron HCl 4 MG Q8H PRN PRN IV Physical Exam General appearance: alert, awake, oriented Head/Eyes: atraumatic, normocephalic Neck: no JVD, no masses or swelling Cardiovascular: normal heart sounds, regular rate rhythm, no murmur Respiratory: aerating well, clear to auscultation, no distress Abdomen: obese, non-tender, normal bowel sounds, soft, no guarding Extremities: moves all, no cyanosis 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 Skin: normal temperature Wound/incision: Location: R lower leg Site Condition: wound vac applied Psychiatry: normal affect, normal judgment/insight, normal mood Results Findings/Data: Laboratory Tests 10/13 10/13 10/13 10/12 10/12 1114 0605 0254 2046 1647 Chemistry Sodium (133 - 145 MMOL/L) 143 Potassium (3.6 - 5.2 MMOL/L) 4.0 Chloride (100 - 108 MMOL/L) 106 Carbon Dioxide (22 - 32 MMOL/L) 27 BUN (6 - 20 MG/DL) 24 H Creatinine (0.60 - 1.00 MG/DL) 1.01 H Estimated GFR (MDRD) (39 - 90) 53 Glucose (65 - 99 MG/DL) 102 H POC Glucose (65 - 99 MG/DL) 92 93 122 H 117 H Calcium (8.7 - 10.5 MG/DL) 9.0 Laboratory Tests 10/13 0254 Hematology WBC (4.80 - 10.80 x10 3/uL) 7.25 RBC (4.2 - 5.4 x10 6/uL) 3.48 L Hgb (12.0 - 16.0 G/DL) 10.2 L Hct (37 - 47 %) 32.3 L MCV (81 - 99 FL) 92.8 MCH (27 - 31 PG) 29.3 MCHC (33 - 37 G/DL) 31.6 L RDW Coeff of Skylar (11.5 - 14.5 %) 14.1 Plt Count (150 - 450 x10 3/uL) 346 MPV (7.4 - 10.4 FL) 9.7 Diagnosis, Assessment Plan Hospital course to date: Assessment: - RLE wound with new purulent cellulitis, growing pseudomonas Aeuruginos sensitive to Cipro s/p evacuation of hematoma, excisional debridment skin and subcutaneous, and ligation of saphenous vein and branches on 09/25/[address] Taylor as well as washout R medial calf wound and wound vac on 09/27/[address] Taylor. Wound appeared to be infected with significant amt of yellow purulent discharge seen in wound. Wound vac now in place - Hx of DVT, history of pulmonary embolism, not on anticoagulation due to recent hematoma. - Hypertension, stable BP - Gastroesophageal reflux disease, controlled - COPD, not in acute exacerbation - Asthma, not in acute exacerbation - Hyperlipidemia, clinically stable - Chronic Anemia, pt's H/H on admission 10.5; was 10.2 on 09/30/18 upon d/c - Hypothyroidism, clinically stable - IFG. HA1C 5.9 - RA on low dose prednisone, pain controlled - Gout Plan - Monitor H/H closely. - continue Cipro -Plastic surgery consulted -> to have a skin graft today - Pain management - Home BP medication regimen - Continue home thyroid supplementation regimen - Mild SSI regimen. - PT/PT wound care DISPOSITION: - Wound vac in place. Plastic surgery consulted. To have a skin graft today. Consultants: customs compliance specialist: Dr. Christy at 1424 RPT #:[id number] END OF REPORT [facility] 2018-10-13 06:15:00 [facility] ([facility]) Hospitalist Progress Note REPORT#:[id number] REPORT STATUS: Signed DATE:10/13/18 TIME: 0615 PATIENT: GABBIE CASTANEDA LITZY UNIT #: [id number] ROOM/BED: Y307-1 : 42 AGE: 78 SEX: F ATTEND: Chele Bass MD ADM AUTHOR: Vasquez Noel DO R2 * ALL edits or amendments must be made on the electronic/computer document * Subjective Chief Complaint: RLE bleeding HPI: patient seen and examined. She reports that her pain is under control. To have a skin graft this afternoon. Review of Systems Constitutional: Denies: chills, fever. Skin: Denies: rash, swelling. Eyes: Denies: visual loss/blurred, photophobia. ENT: Denies: throat pain, throat swelling. Respiratory: Denies: SOB, wheezing. Cardiovascular: Denies: chest pain, [place] (dyspnea on exertion). GI: Denies: abdominal pain, nausea, vomiting. : Denies: dysuria, flank pain. Musculoskeletal: Reports: extremity pain. Denies: extremity swelling. Neuro: Denies: change in LOC, syncope. Objective General VS/I O: Vital Signs: Date Time Temp Pulse Resp B/P B/P Pulse O2 O2 Flow FiO2 Mean Ox Delivery Rate 10/13 1403 94 10/13 1117 97.9 61 18 148/67 94.2 91 Room air 10/13 0748 97.5 61 18 134/62 85.8 90 Room air 10/13 0439 98.1 67 22 132/67 88.7 95 10/13 0001 97.9 66 20 130/63 85.3 93 10/12 2006 97.9 74 18 147/76 100.0 94 10/12 1645 98.8 62 20 123/57 78.8 94 24 hour I O ending at 0700: 10/13 0700 10/12 1900 Intake Total Output Total 50 50 Balance -50 -50 Output, 50 50 Drainage Medications: Active Meds + DC'd Last 24 Hrs Sodium Hypochlorite 473 ML DAILY TOPICAL (CKD) Oxycodone HCl 5 MG Q4H PRN PRN PO Ciprofloxacin/Dextrose 200 ML Q8H IV Potassium Chloride 20 MEQ 1800 PO Metoprolol Succinate 100 MG DAILY PO Prednisone 3 MG DAILY PO Valsartan 320 MG DAILY PO Levothyroxine Sodium 100 MCG DAILY@0600 PO Insulin Human Lispro MILD SLIDING SCALE (Thin, NPO, sensitive) AC HS SUBQ Dextrose 20 GM ASDIR PRN PO Dextrose/Water 25 GM ASDIR PRN IV Dextrose/Water 12.5 GM ASDIR PRN IV Amlodipine Besylate 10 MG 1800 PO Famotidine 20 MG Q24H PO Furosemide 20 MG 1800 PO Hydrocodone Bitart/Acetaminophen 1 TAB TID PRN PO Tramadol HCl 50 MG Q8H PRN PRN PO Acetaminophen 650 MG Q4H PRN PRN PO Hydralazine HCl 10 MG Q6H PRN PRN IV Ondansetron HCl 4 MG Q8H PRN PRN IV Physical Exam General appearance: alert, awake, oriented Head/Eyes: atraumatic, normocephalic Neck: no JVD, no masses or swelling Cardiovascular: normal heart sounds, regular rate rhythm, no murmur Respiratory: aerating well, clear to auscultation, no distress Abdomen: obese, non-tender, normal bowel sounds, soft, no guarding Extremities: moves all, no cyanosis 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 Skin: normal temperature Wound/incision: Location: R lower leg Site Condition: wound vac applied Psychiatry: normal affect, normal judgment/insight, normal mood Results Findings/Data: Laboratory Tests 10/13 10/13 10/13 10/12 10/12 1114 0605 0254 2046 1647 Chemistry Sodium (133 - 145 MMOL/L) 143 Potassium (3.6 - 5.2 MMOL/L) 4.0 Chloride (100 - 108 MMOL/L) 106 Carbon Dioxide (22 - 32 MMOL/L) 27 BUN (6 - 20 MG/DL) 24 H Creatinine (0.60 - 1.00 MG/DL) 1.01 H Estimated GFR (MDRD) (39 - 90) 53 Glucose (65 - 99 MG/DL) 102 H POC Glucose (65 - 99 MG/DL) 92 93 122 H 117 H Calcium (8.7 - 10.5 MG/DL) 9.0 Laboratory Tests 10/13 0254 Hematology WBC (4.80 - 10.80 x10 3/uL) 7.25 RBC (4.2 - 5.4 x10 6/uL) 3.48 L Hgb (12.0 - 16.0 G/DL) 10.2 L Hct (37 - 47 %) 32.3 L MCV (81 - 99 FL) 92.8 MCH (27 - 31 PG) 29.3 MCHC (33 - 37 G/DL) 31.6 L RDW Coeff of Skylar (11.5 - 14.5 %) 14.1 Plt Count (150 - 450 x10 3/uL) 346 MPV (7.4 - 10.4 FL) 9.7 Diagnosis, Assessment Plan Hospital course to date: Assessment: - RLE wound with new purulent cellulitis, growing pseudomonas Aeuruginos sensitive to Cipro s/p evacuation of hematoma, excisional debridment skin and subcutaneous, and ligation of saphenous vein and branches on 09/25/[address] Taylor as well as washout R medial calf wound and wound vac on 09/27/[address] Taylor. Wound appeared to be infected with significant amt of yellow purulent discharge seen in wound. Wound vac now in place - Hx of DVT, history of pulmonary embolism, not on anticoagulation due to recent hematoma. - Hypertension, stable BP - Gastroesophageal reflux disease, controlled - COPD, not in acute exacerbation - Asthma, not in acute exacerbation - Hyperlipidemia, clinically stable - Chronic Anemia, pt's H/H on admission 10.5; was 10.2 on 09/30/18 upon d/c - Hypothyroidism, clinically stable - IFG. HA1C 5.9 - RA on low dose prednisone, pain controlled - Gout Plan - Monitor H/H closely. - continue Cipro -Plastic surgery consulted -> to have a skin graft today - Pain management - Home BP medication regimen - Continue home thyroid supplementation regimen - Mild SSI regimen. - PT/PT wound care DISPOSITION: - Wound vac in place. Plastic surgery consulted. To have a skin graft today. Consultants: customs compliance specialist: Dr. Christy at 1424 at 2009 RPT #:[id number] END OF REPORT [facility] 2018-10-12 19:20:00 [id number] [place], [place] PATIENT NAME: GABBIE CASTANEDA ADMIT DATE: 10/09/18 ACCOUNT NO: [id number] ROOM NO: D.Y307 AGE: 78 REPORT TYPE: CONSULTATION SEX: F ADMITTING PHYSICIAN:Chele Bass MD ATTENDING PHYSICIAN:Chele Bass MD CONSULTATION DATE: CONSULTING PHYSICIAN: Akash Phelan MD CONSULTING PHYSICIAN: Primary team. HISTORY OF PRESENT ILLNESS: The patient is a 78-year-old female with a history of hypertension and rheumatoid arthritis, who sustained an injury to her right leg several days ago. She was seen in the Emergency Room and discharged. She then noted that the wound increased in size. She has since been in the hospital, receiving wound care. She complains of pain only when the wound dressings are changed. PAST MEDICAL HISTORY: Hypertension and rheumatoid arthritis. MEDICATIONS: Please see chart. PHYSICAL EXAMINATION: LUNGS: Clear. HEART: Regular. ABDOMEN: Soft. EXTREMITIES: Right lower extremity, 2+ dorsalis pedis and 1+ posterior tibial pulse. Wound itself measures approximately 12 x 6 cm in the right lower leg. No surrounding erythema or induration. The patient has no tenderness surrounding the wound. ASSESSMENT: Large open wound, right lower leg. PLAN: Optimize nutrition. We will discuss the situation with her hospitalist and Dr. Bass, and we will plan on performing excision and skin grafting in the near future. Dictated By: Akash Phelan MD WT: CON:DANTHONY/VINNIE/KEISHA Conf#: [id number]/DID#: [id number] Authenticated by Akash Phelan MD On 12/15/2018 12:03:45 PM PATIENT NAME: GABBIE CASTANEDA at 1204 PATIENT NAME: GABBIE CASTANEDA [facility] 2018-10-12 12:29:00 [facility] ([facility]) Hospitalist Progress Note REPORT#:[id number] REPORT STATUS: Signed DATE:10/12/18 TIME: 1229 PATIENT: GABBIE CASTANEDA UNIT #: [id number] ROOM/BED: Y307-1 : 42 AGE: 78 SEX: F ATTEND: Chele Bass MD ADM AUTHOR: Vasquez Noel DO R2 * ALL edits or amendments must be made on the electronic/computer document * Subjective Chief Complaint: RLE bleeding HPI: Patient seen and examined, denies any further bleeding. Reports pain with wound care Review of Systems Constitutional: Denies: chills, fever. Skin: Denies: rash, swelling. Eyes: Denies: visual loss/blurred, photophobia. ENT: Denies: throat pain, throat swelling. Respiratory: Denies: SOB, wheezing. Cardiovascular: Denies: chest pain, [place] (dyspnea on exertion). GI: Denies: abdominal pain, nausea, vomiting. : Denies: dysuria, flank pain. Musculoskeletal: Reports: extremity pain. Denies: extremity swelling. Neuro: Denies: change in LOC, syncope. Objective General VS/I O: Vital Signs: Date Time Temp Pulse Resp B/P B/P Pulse O2 O2 Flow FiO2 Mean Ox Delivery Rate 10/12 1221 98.2 61 20 130/62 84.7 95 10/12 0703 97.7 68 18 150/69 96.1 96 Room air 10/12 0703 97.7 68 18 150/69 96.1 96 Room air 10/12 0507 97.9 63 17 129/58 81.9 95 Room air 10/12 0041 99.0 66 17 134/67 89.5 94 Room air 10/11 202 97.7 66 18 120/66 84.1 95 Room air 10/11 202 97.7 66 18 120/66 84.1 95 Room air 10/11 1633 97.7 58 18 131/68 89.4 93 Room air 24 hour I O ending at 0700: 10/12 0700 10/11 1900 Intake Total 1500.00 Output Total 50 450 Balance -50 1050.00 Intake, IV 300.00 Intake, Oral 1200 Output, 50 50 Drainage Output, Urine 400 Medications: Active Meds + DC'd Last 24 Hrs Morphine Sulfate 4 MG ONCE ONE IV (DC) Sodium Hypochlorite 473 ML DAILY TOPICAL (CKD) Oxycodone HCl 5 MG Q4H PRN PRN PO Ciprofloxacin/Dextrose 200 ML Q8H IV Metronidazole HCl 100 ML Q8H IV (DC) Potassium Chloride 20 MEQ 1800 PO Metoprolol Succinate 100 MG DAILY PO Prednisone 3 MG DAILY PO Valsartan 320 MG DAILY PO Levothyroxine Sodium 100 MCG DAILY@0600 PO Insulin Human Lispro MILD SLIDING SCALE (Thin, NPO, sensitive) AC HS SUBQ Dextrose 20 GM ASDIR PRN PO Dextrose/Water 25 GM ASDIR PRN IV Dextrose/Water 12.5 GM ASDIR PRN IV Amlodipine Besylate 10 MG 1800 PO Famotidine 20 MG Q24H PO Furosemide 20 MG 1800 PO Hydrocodone Bitart/Acetaminophen 1 TAB TID PRN PO Tramadol HCl 50 MG Q8H PRN PRN PO Acetaminophen 650 MG Q4H PRN PRN PO Hydralazine HCl 10 MG Q6H PRN PRN IV Ondansetron HCl 4 MG Q8H PRN PRN IV Physical Exam General appearance: alert, awake, oriented Head/Eyes: atraumatic, normocephalic Neck: no JVD, no masses or swelling Cardiovascular: normal heart sounds, regular rate rhythm, no murmur Respiratory: aerating well, clear to auscultation, no distress Abdomen: obese, non-tender, normal bowel sounds, soft, no guarding Extremities: moves all, no cyanosis 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 Skin: normal temperature Wound/incision: Location: R lower leg Site Condition: wound vac applied Psychiatry: normal affect, normal judgment/insight, normal mood Results Findings/Data: Laboratory Tests 10/12 10/12 10/12 10/11 10/11 1109 0607 0248 2020 1630 Chemistry Sodium (133 - 145 MMOL/L) 142 Potassium (3.6 - 5.2 MMOL/L) 4.0 Chloride (100 - 108 MMOL/L) 104 Carbon Dioxide (22 - 32 MMOL/L) 29 BUN (6 - 20 MG/DL) 22 H Creatinine (0.60 - 1.00 MG/DL) 1.16 H Estimated GFR (MDRD) (39 - 90) 45 Glucose (65 - 99 MG/DL) 100 H POC Glucose (65 - 99 MG/DL) 97 101 H 113 H 113 H Calcium (8.7 - 10.5 MG/DL) 9.0 Laboratory Tests 10/12 0248 Hematology WBC (4.80 - 10.80 x10 3/uL) 7.35 RBC (4.2 - 5.4 x10 6/uL) 3.26 L Hgb (12.0 - 16.0 G/DL) 9.5 L Hct (37 - 47 %) 30.1 L MCV (81 - 99 FL) 92.3 MCH (27 - 31 PG) 29.1 MCHC (33 - 37 G/DL) 31.6 L RDW Coeff of Skylar (11.5 - 14.5 %) 14.2 Plt Count (150 - 450 x10 3/uL) 339 MPV (7.4 - 10.4 FL) 9.5 Diagnosis, Assessment Plan Hospital course to date: Assessment: - RLE wound with new purulent cellulitis, growing pseudomonas Aeuruginos sensitive to Cipro s/p evacuation of hematoma, excisional debridment skin and subcutaneous, and ligation of saphenous vein and branches on 09/25/[address] Taylor as well as washout R medial calf wound and wound vac on 09/27/[address] Taylor. Wound appeared to be infected with significant amt of yellow purulent discharge seen in wound. Wound vac now in place - Hx of DVT, history of pulmonary embolism, not on anticoagulation due to recent hematoma. - Hypertension, stable BP - Gastroesophageal reflux disease, controlled - COPD, not in acute exacerbation - Asthma, not in acute exacerbation - Hyperlipidemia, clinically stable - Chronic Anemia, pt's H/H on admission 10.5; was 10.2 on 09/30/18 upon d/c - Hypothyroidism, clinically stable - IFG. HA1C 5.9 - RA on low dose prednisone, pain controlled - Gout Plan - Monitor H/H closely. - continue Cipro -Plastic surgery consulted - Pain management - Home BP medication regimen - Continue home thyroid supplementation regimen - Mild SSI regimen. - PT/PT wound care DISPOSITION: - Wound vac in place. Plastic surgery consulted Consultants: customs compliance specialist: Dr. Christy at 1451 RPT #:[id number] END OF REPORT [facility] 2018-10-12 12:29:00 [facility] ([facility]) Hospitalist Progress Note REPORT#:[id number] REPORT STATUS: Signed DATE:10/12/18 TIME: 1229 PATIENT: GABBIE CASTANEDA UNIT #: [id number] ROOM/BED: Y3071 : 42 AGE: 78 SEX: F ATTEND: Chele Bass MD ADM AUTHOR: Vasquez Noel DO R2 * ALL edits or amendments must be made on the electronic/computer document * Subjective Chief Complaint: RLE bleeding HPI: Patient seen and examined, denies any further bleeding. Reports pain with wound care Review of Systems Constitutional: Denies: chills, fever. Skin: Denies: rash, swelling. Eyes: Denies: visual loss/blurred, photophobia. ENT: Denies: throat pain, throat swelling. Respiratory: Denies: SOB, wheezing. Cardiovascular: Denies: chest pain, [place] (dyspnea on exertion). GI: Denies: abdominal pain, nausea, vomiting. : Denies: dysuria, flank pain. Musculoskeletal: Reports: extremity pain. Denies: extremity swelling. Neuro: Denies: change in LOC, syncope. Objective General VS/I O: Vital Signs: Date Time Temp Pulse Resp B/P B/P Pulse O2 O2 Flow FiO2 Mean Ox Delivery Rate 10/12 1221 98.2 61 20 130/62 84.7 95 10/12 0703 97.7 68 18 150/69 96.1 96 Room air 10/12 0703 97.7 68 18 150/69 96.1 96 Room air 10/12 0507 97.9 63 17 129/58 81.9 95 Room air 10/12 0041 99.0 66 17 134/67 89.5 94 Room air 10/12 2023 97.7 66 18 120/66 84.1 95 Room air 10/12 2023 97.7 66 18 120/66 84.1 95 Room air 10/11 1633 97.7 58 18 131/68 89.4 93 Room air 24 hour I O ending at 0700: 10/12 0700 10/11 1900 Intake Total 1500.00 Output Total 50 450 Balance -50 1050.00 Intake, IV 300.00 Intake, Oral 1200 Output, 50 50 Drainage Output, Urine 400 Medications: Active Meds + DC'd Last 24 Hrs Morphine Sulfate 4 MG ONCE ONE IV (DC) Sodium Hypochlorite 473 ML DAILY TOPICAL (CKD) Oxycodone HCl 5 MG Q4H PRN PRN PO Ciprofloxacin/Dextrose 200 ML Q8H IV Metronidazole HCl 100 ML Q8H IV (DC) Potassium Chloride 20 MEQ 1800 PO Metoprolol Succinate 100 MG DAILY PO Prednisone 3 MG DAILY PO Valsartan 320 MG DAILY PO Levothyroxine Sodium 100 MCG DAILY@0600 PO Insulin Human Lispro MILD SLIDING SCALE (Thin, NPO, sensitive) AC HS SUBQ Dextrose 20 GM ASDIR PRN PO Dextrose/Water 25 GM ASDIR PRN IV Dextrose/Water 12.5 GM ASDIR PRN IV Amlodipine Besylate 10 MG 1800 PO Famotidine 20 MG Q24H PO Furosemide 20 MG 1800 PO Hydrocodone Bitart/Acetaminophen 1 TAB TID PRN PO Tramadol HCl 50 MG Q8H PRN PRN PO Acetaminophen 650 MG Q4H PRN PRN PO Hydralazine HCl 10 MG Q6H PRN PRN IV Ondansetron HCl 4 MG Q8H PRN PRN IV Physical Exam General appearance: alert, awake, oriented Head/Eyes: atraumatic, normocephalic Neck: no JVD, no masses or swelling Cardiovascular: normal heart sounds, regular rate rhythm, no murmur Respiratory: aerating well, clear to auscultation, no distress Abdomen: obese, non-tender, normal bowel sounds, soft, no guarding Extremities: moves all, no cyanosis 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 Skin: normal temperature Wound/incision: Location: R lower leg Site Condition: wound vac applied Psychiatry: normal affect, normal judgment/insight, normal mood Results Findings/Data: Laboratory Tests 10/12 10/12 10/12 10/11 10/11 1109 0607 0248 2020 1630 Chemistry Sodium (133 - 145 MMOL/L) 142 Potassium (3.6 - 5.2 MMOL/L) 4.0 Chloride (100 - 108 MMOL/L) 104 Carbon Dioxide (22 - 32 MMOL/L) 29 BUN (6 - 20 MG/DL) 22 H Creatinine (0.60 - 1.00 MG/DL) 1.16 H Estimated GFR (MDRD) (39 - 90) 45 Glucose (65 - 99 MG/DL) 100 H POC Glucose (65 - 99 MG/DL) 97 101 H 113 H 113 H Calcium (8.7 - 10.5 MG/DL) 9.0 Laboratory Tests 10/128 Hematology WBC (4.80 - 10.80 x10 3/uL) 7.35 RBC (4.2 - 5.4 x10 6/uL) 3.26 L Hgb (12.0 - 16.0 G/DL) 9.5 L Hct (37 - 47 %) 30.1 L MCV (81 - 99 FL) 92.3 MCH (27 - 31 PG) 29.1 MCHC (33 - 37 G/DL) 31.6 L RDW Coeff of Skylar (11.5 - 14.5 %) 14.2 Plt Count (150 - 450 x10 3/uL) 339 MPV (7.4 - 10.4 FL) 9.5 Diagnosis, Assessment Plan Hospital course to date: Assessment: - RLE wound with new purulent cellulitis, growing pseudomonas Aeuruginos sensitive to Cipro s/p evacuation of hematoma, excisional debridment skin and subcutaneous, and ligation of saphenous vein and branches on 09/25/[address] Taylor as well as washout R medial calf wound and wound vac on 09/27/[address] Taylor. Wound appeared to be infected with significant amt of yellow purulent discharge seen in wound. Wound vac now in place - Hx of DVT, history of pulmonary embolism, not on anticoagulation due to recent hematoma. - Hypertension, stable BP - Gastroesophageal reflux disease, controlled - COPD, not in acute exacerbation - Asthma, not in acute exacerbation - Hyperlipidemia, clinically stable - Chronic Anemia, pt's H/H on admission 10.5; was 10.2 on 09/30/18 upon d/c - Hypothyroidism, clinically stable - IFG. HA1C 5.9 - RA on low dose prednisone, pain controlled - Gout Plan - Monitor H/H closely. - continue Cipro -Plastic surgery consulted - Pain management - Home BP medication regimen - Continue home thyroid supplementation regimen - Mild SSI regimen. - PT/PT wound care DISPOSITION: - Wound vac in place. Plastic surgery consulted Consultants: customs compliance specialist: Dr. Christy at 1451 at 0901 RPT #:[id number] END OF REPORT [facility] 2018-10-12 10:08:00 [facility] ([facility] Wound Care Consultation Note REPORT#:[id number] REPORT STATUS: Signed DATE:10/12/18 TIME: 1008 PATIENT: GABBIE CASTANEDA UNIT #: [id number] ROOM/BED: Y307-1 : 42 AGE: 78 SEX: F ATTEND: Sadiq Bates DO ADM AUTHOR: Benji Stinson * ALL edits or amendments must be made on the electronic/computer document * History of Present Illness Requesting Clinician: Dr. Sadiq Bates Reason for consult: RLE Wound Chief complaint: Slow Healing RLE wound HPI: Pt is a 78 y/o F with PMHx of DVT, history of pulmonary embolism, hypertension, gastroesophageal reflux disease, COPD, asthma, and hyperlipidemia that presents with a slow healing RLE wound and wound vac in place. She recently experienced increased bleeding at the wound site and has positive cultures for Pseudomonas. She originally obtained the wound after a fall then had surgical debridement followed by wound vac placement. Currently she admits to mild pain at the wound /woundvac which becomes severe, 03/30, with manipulation of the wound and the associated dressing. Pt currently denies any fever, chills, n/v/d. History Past History Past medical history: asthma, atrial fibrillation (Rheumatoid Arthritis), COPD, GERD, hyperlipidemia, hypertension, Rheumatoid Arthritis, Anemia, Gout Past surgical history: cholecystectomy, hysterectomy Past social history: quit smoking Past family history: Relation not specified for: Family History: Heart disease Medications: Home Medications: Medication Dose/Rte/Freq Days Qty Entered Last Max Daily Dose Reviewed POTASSIUM CHLORIDE ER 20 MEQ PO 07/09/17 10/07/18 (KLOR-CON M20) DAILY 1800 162 175 Strength: 20 MEQ TAB.SR amLODIPine (NORVASC) 10 MG PO DAILY 1800 07/09/17 10/07/18 Strength: 10 MG TAB 162 175 FUROSEMIDE (LASIX) 20 MG PO DAILY 1800 07/09/17 10/07/18 Strength: 20 MG TAB 162 175 predniSONE 3 MG PO DAILY 07/09/17 10/07/18 Strength: 1 MG TAB 185 175 VALSARTAN (DIOVAN) 320 MG PO DAILY 07/09/17 10/07/18 Strength: 320 MG TAB 185 175 ALLOPURINOL (ZYLOPRIM) 300 MG PO DAILY 07/10/17 10/07/18 Strength: 300 MG TAB 1849 175 HYDROcodone/APAP 1 TAB PO 07/10/17 10/07/18 (NORCO 10/325) TID PRN PAIN 1855 180 Strength: 1 TAB TAB METOPROLOL SUCC XL 100 MG PO DAILY 07/10/17 10/07/18 (TOPROL XL) 185 175 Strength: 100 MG TAB.SA LEVOTHYROXINE 100 MCG PO DAILY 09/25/18 10/07/18 (LEVOTHROID) 182 175 Strength: 100 MCG TAB MULTIVITAMIN 1 TAB PO DAILY 10/07/18 10/07/18 (MULTIPLE VITAMIN) 1758 175 Strength: 1 TAB TAB traMADol (ULTRAM) 50 MG PO 10/07/18 10/07/18 Strength: 50 MG TAB Q8H PRN PRN PAIN 1804 1804 Current Hospital Medications: 08:00 Sig/Joanne Start time Last Medication Dose Route Stop Time Status Admin Miscellaneous 1 EACH ASDIR 10/08 1210 DC Information IV 12/07 1211 (VANCOMYCIN PHARMACY TO DOSE) Anti-Infective Agents Sig/Joanne Start time Last Medication Dose Route Stop Time Status Admin Ciprofloxacin/ 200 ML Q8H 10/09 1600 AC 10/12 Dextrose IV 10/19 1601 0952 (CIPRO I.V. 400MG/ 200ML D5W) Metronidazole HCl 100 ML Q8H 10/09 1230 DC 10/11 (FLAGYL 500MG/100ML IV 10/19 1231 1134 R.T.U. PREMIX) Vancomycin HCl 1,250 MG 1400 10/08 1400 DC 10/10 (VANCOCIN HCL 1000MG IV 10/14 1559 1306 VIAL) Sodium Chloride 250 ML (NORMAL SALINE 250ML IV) Cardiovascular Drugs Sig/Joanne Start time Last Medication Dose Route Stop Time Status Admin Metoprolol Succinate 100 MG DAILY 10/08 0900 AC 10/12 (TOPROL XL 100MG PO 12/07 09 0951 TABLET SA) Valsartan 320 MG DAILY 10/08 0900 AC 10/12 (DIOVAN 80MG TABLET) PO 12/07 0901 0951 Amlodipine Besylate 10 MG 1800 10/07 185 AC 10/11 (NORVASC 10MG TABLET) PO 12/06 185 1720 Hydralazine HCl 10 MG Q6H PRN PRN 10/07 1850 AC (APRESOLINE) IV 12/06 185 Central Nervous System Agents Sig/Joanne Start time Last Medication Dose Route Stop Time Status Admin Oxycodone HCl 5 MG Q4H PRN PRN 10/10 1025 AC (OXY IR 5MG TABLET) PO 10/20 1026 Hydrocodone Bitart/ 1 TAB TID PRN 10/07 1855 AC 10/11 Acetaminophen PO 10/17 185 0315 (NORCO 10/325 TABLET) Tramadol HCl 50 MG Q8H PRN PRN 10/07 185 AC (ULTRAM 50MG TABLET) PO 12/07 1855 Acetaminophen 650 MG Q4H PRN PRN 10/07 185 AC (TYLENOL 325MG PO 12/06 1851 TABLET) Electrolytic, Caloric, And Jan Sig/Joanne Start time Last Medication Dose Route Stop Time Status Admin Potassium Chloride 20 MEQ 1800 10/08 1800 AC 10/11 (K-DUR) PO 12/07 180 1720 Dextrose 20 GM ASDIR PRN 10/07 2014 AC (GLUCOSE) PO 12/07 2015 Dextrose/Water 25 GM ASDIR PRN 10/07 2014 AC (DEXTROSE 50% 50ML IV 12/07 2015 SYRINGE) Dextrose/Water 12.5 GM ASDIR PRN 10/07 2014 AC (DEXTROSE 50% 50ML IV 12/07 2015 SYRINGE) Furosemide 20 MG 1800 10/07 185 AC 10/11 (LASIX) PO 12/06 1856 1720 Gastrointestinal Drugs Sig/Joanne Start time Last Medication Dose Route Stop Time Status Admin Famotidine 20 MG Q24H 10/07 1854 AC 10/11 (PEPCID 20MG TABLET) PO 12/06 210 1720 Ondansetron HCl 4 MG Q8H PRN PRN 10/07 185 AC (ZOFRAN 4 MG/2 ML) IV 12/06 185 Hormones And Synthetic Substit Sig/Joanne Start time Last Medication Dose Route Stop Time Status Admin Prednisone 3 MG DAILY 10/08 0900 AC 10/12 (predniSONE 1MG PO 10/18 0901 0951 TABLET) Levothyroxine Sodium 100 MCG DAILY@0600 10/08 0600 AC 10/12 (Synthroid 100 MCG PO 12/07 0601 0622 TABLET) Insulin Human Lispro See Dose AC HS 10/07 2100 AC (HUMALOG) Insts (1) SUBQ 12/06 210 Miscellaneous Therapeutic Agen Sig/Joanne Start time Last Medication Dose Route Stop Time Status Admin Sodium Hypochlorite 473 ML DAILY 10/11 0900 CKD 10/12 (DAKINS 0.25% (HALF TOPICAL 10/21 0901 0952 STRENGTH)) Dose Instructions: (1)Insulin Human Lispro (HUMALOG): MILD SLIDING SCALE (Thin, NPO, sensitive) Allergies: Coded Allergies: Sulfa (Sulfonamide Antibiotics) (Mild, BLISTERS 02/05/17) iodine (Mild, ITCHING, SCRATCHING 07/09/17) penicillin G (Mild, PASSESS OUT 07/09/17) aspirin (Mild, UPSET STOMACH 02/05/17) codeine (Mild, HEADACHE 02/05/17) Review of Systems Constitutional: Denies: chills, fatigue, fever. Skin: Denies: bruising, contusion, diaphoresis. Allergy/Immun: Denies: rhinorrhea, sneezing. Eyes: Denies: redness, discharge, visual loss/blurred. ENT: Denies: ear drainage, ear ringing, nasal congestion. Respiratory: Denies: hemoptysis, pleuritic pain, SOB. Cardiovascular: Denies: chest pain, edema, palpitations. GI: Denies: abdominal pain, diarrhea, vomiting. : Denies: dysuria, hematuria, pelvic pain. Musculoskeletal: Reports: extremity pain. Denies: joint pain, lumbar pain. Heme: Denies: adenopathy, petechiae. Endocrine: Denies: cold intolerance, heat intolerance. Neuro: Denies: focal weakness, headache, lightheaded. Psych: Denies: anxiety, depression. Objective VS/I O: Last Documented: Result Date Time Pulse Ox 96 10/12 07 B/P 150/69 10/12 0703 B/P Mean 96.1 10/12 0703 O2 Delivery Room air 10/12 07 Temp 97.7 10/12 07 Pulse 68 10/12 0703 Resp 18 10/12 0703 24 hour I O ending at 0700: 10/12 0700 10/11 1900 Intake Total 1500.00 Output Total 50 450 Balance -50 1050.00 Intake, IV 300.00 Intake, Oral 1200 Output, 50 50 Drainage Output, Urine 400 General appearance: alert, awake, oriented Head/Eyes: EOMI, normocephalic, PERRLA ENT: normal nose, normal pharynx, moist mucosal membranes Neck: full range of motion, non-tender Cardiovascular: normal capillary refill, regular rate rhythm, normal heart sounds, BP/pulses equal bilat. Respiratory: clear to auscultation, no distress Abdomen: soft, non-tender, no guarding Extremities: moves all, no edema, normal range of motion, normal sensory, no cyanosis Musculoskeletal: full range of motion, no midline vertebral tend 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, oriented X 3, CNII-XII grossly intact Skin: Right medial calf wound [id number] with pink granulation tissue throughout. Tenderness with manipulation. Well vascularized. Sanguinous drainage noted. Mild periwound erythema. Woundvac being used. Wound Assessment Wound Assessment 1: Type/cause: pressure (+Pseudomonas Aero), post-op Wound location: lower extremity Tissue layers: muscle w/out necrosis Site condition: granulating, edges approximated, Sanguinous drainage, + Pseudomonas Aero Wound margins: distinct outline attached Jaz-wound: erythema Treatment Prophylaxis Treatment Prophylaxis Ernandez documentation: The data below has been imported from nursing documentation. Any exceptions have been noted below under Provider comments. _ Nursing Documentation Date ernandez inserted: Date ernandez discontinued: _ Provider comments: [] Diagnosis, Assessment Plan Problem List/A P: 1. Encounter for postoperative wound care 2. Cellulitis of right leg 3. Musculoskeletal pain Free Text A P: Right Lower extremity Post Op Wound: Continue use of Wound vac with change qM-W-F. Order for acetic acid irrigation to wound vac via Veraflow for complete treatment of Pseudomonas, discussed with PT/Woundcare. Await evaluation with Dr. Bustos (Plastic) for future consideration of graft. Right Lower ext Cellulitis: Nonstick spray for dressing irritation. Patient to continue current IV antibiotics with Vancomycin and Cipro. Right Lower ext Pain: Continue current medication for pain management. Orders: PT/Woundcare for placement of Veraflow Acetic Acid irrigation with woundvac care at 1043 RPT #:[id number] END OF REPORT [facility] 2018-10-12 10:08:00 [facility] ([facility] Wound Care Consultation Note REPORT#:[id number] REPORT STATUS: Signed DATE:10/12/18 TIME: 1008 PATIENT: GABBIE CASTANEDA UNIT #: [id number] ROOM/BED: [address] : [address] AGE: 78 SEX: F ATTEND: Chele Bass MD ADM AUTHOR: Benji Stinson * ALL edits or amendments must be made on the electronic/computer document * History of Present Illness Requesting Clinician: Dr. Sadiq Bates Reason for consult: RLE Wound Chief complaint: Slow Healing RLE wound HPI: Pt is a 78 y/o F with PMHx of DVT, history of pulmonary embolism, hypertension, gastroesophageal reflux disease, COPD, asthma, and hyperlipidemia that presents with a slow healing RLE wound and wound vac in place. She recently experienced increased bleeding at the wound site and has positive cultures for Pseudomonas. She originally obtained the wound after a fall then had surgical debridement followed by wound vac placement. Currently she admits to mild pain at the wound /woundvac which becomes severe, 03/30, with manipulation of the wound and the associated dressing. Pt currently denies any fever, chills, n/v/d. History Past History Past medical history: asthma, atrial fibrillation (Rheumatoid Arthritis), COPD, GERD, hyperlipidemia, hypertension, Rheumatoid Arthritis, Anemia, Gout Past surgical history: cholecystectomy, hysterectomy Past social history: quit smoking Past family history: Relation not specified for: Family History: Heart disease Medications: Home Medications: Medication Dose/Rte/Freq Days Qty Entered Last Max Daily Dose Reviewed POTASSIUM CHLORIDE ER 20 MEQ PO 07/09/17 10/07/18 (KLOR-CON M20) DAILY 1800 1626 1756 Strength: 20 MEQ TAB.SR amLODIPine (NORVASC) 10 MG PO DAILY 1800 07/09/17 10/07/18 Strength: 10 MG TAB 162 175 FUROSEMIDE (LASIX) 20 MG PO DAILY 1800 07/09/17 10/07/18 Strength: 20 MG TAB 162 175 predniSONE 3 MG PO DAILY 07/09/17 10/07/18 Strength: 1 MG TAB 185 175 VALSARTAN (DIOVAN) 320 MG PO DAILY 07/09/17 10/07/18 Strength: 320 MG TAB 185 175 ALLOPURINOL (ZYLOPRIM) 300 MG PO DAILY 07/10/17 10/07/18 Strength: 300 MG TAB 1849 1758 HYDROcodone/APAP 1 TAB PO 07/10/17 10/07/18 (NORCO 10/325) TID PRN PAIN 185 1804 Strength: 1 TAB TAB METOPROLOL SUCC XL 100 MG PO DAILY 07/10/17 10/07/18 (TOPROL XL) 1858 1757 Strength: 100 MG TAB.SA LEVOTHYROXINE 100 MCG PO DAILY 09/25/18 10/07/18 (LEVOTHROID) 1829 1758 Strength: 100 MCG TAB MULTIVITAMIN 1 TAB PO DAILY 10/07/18 10/07/18 (MULTIPLE VITAMIN) 1758 1758 Strength: 1 TAB TAB traMADol (ULTRAM) 50 MG PO 10/07/18 10/07/18 Strength: 50 MG TAB Q8H PRN PRN PAIN 180 1804 Current Hospital Medications: 08:00 Sig/Joanne Start time Last Medication Dose Route Stop Time Status Admin Miscellaneous 1 EACH ASDIR 10/08 1210 DC Information IV 12/07 1211 (VANCOMYCIN PHARMACY TO DOSE) Anti-Infective Agents Sig/Joanne Start time Last Medication Dose Route Stop Time Status Admin Ciprofloxacin/ 200 ML Q8H 10/09 1600 AC 10/12 Dextrose IV 10/19 1601 0952 (CIPRO I.V. 400MG/ 200ML D5W) Metronidazole HCl 100 ML Q8H 10/09 1230 DC 10/11 (FLAGYL 500MG/100ML IV 10/19 1231 1134 R.T.U. PREMIX) Vancomycin HCl 1,250 MG 1400 10/08 1400 DC 10/10 (VANCOCIN HCL 1000MG IV 10/14 1559 1306 VIAL) Sodium Chloride 250 ML (NORMAL SALINE 250ML IV) Cardiovascular Drugs Sig/Joanne Start time Last Medication Dose Route Stop Time Status Admin Metoprolol Succinate 100 MG DAILY 10/08 0900 AC 10/12 (TOPROL XL 100MG PO 12/07 900 0951 TABLET SA) Valsartan 320 MG DAILY 10/08 0900 AC 10/12 (DIOVAN 80MG TABLET) PO 12/07 09 0951 Amlodipine Besylate 10 MG 1800 10/07 1855 AC 10/11 (NORVASC 10MG TABLET) PO 12/06 1856 1720 Hydralazine HCl 10 MG Q6H PRN PRN 10/07 1850 AC (APRESOLINE) IV 12/06 185 Central Nervous System Agents Sig/Joanne Start time Last Medication Dose Route Stop Time Status Admin Oxycodone HCl 5 MG Q4H PRN PRN 10/10 1025 AC (OXY IR 5MG TABLET) PO 10/20 1026 Hydrocodone Bitart/ 1 TAB TID PRN 10/07 185 AC 10/11 Acetaminophen PO 10/17 185 0315 (NORCO 10/325 TABLET) Tramadol HCl 50 MG Q8H PRN PRN 10/07 1854 AC (ULTRAM 50MG TABLET) PO 12/07 1855 Acetaminophen 650 MG Q4H PRN PRN 10/07 1849 AC (TYLENOL 325MG PO 12/06 1850 TABLET) Electrolytic, Caloric, And Jan Sig/Joanne Start time Last Medication Dose Route Stop Time Status Admin Potassium Chloride 20 MEQ 1800 10/08 1800 AC 10/11 (K-DUR) PO 12/07 1801 1720 Dextrose 20 GM ASDIR PRN 10/07 2014 AC (GLUCOSE) PO 12/07 2015 Dextrose/Water 25 GM ASDIR PRN 10/07 2014 AC (DEXTROSE 50% 50ML IV 12/07 2015 SYRINGE) Dextrose/Water 12.5 GM ASDIR PRN 10/07 2014 AC (DEXTROSE 50% 50ML IV 12/07 2015 SYRINGE) Furosemide 20 MG 1800 10/07 1854 AC 10/11 (LASIX) PO 12/06 185 1720 Gastrointestinal Drugs Sig/Joanne Start time Last Medication Dose Route Stop Time Status Admin Famotidine 20 MG Q24H 10/07 1854 AC 10/11 (PEPCID 20MG TABLET) PO 12/06 210 1720 Ondansetron HCl 4 MG Q8H PRN PRN 10/07 185 AC (ZOFRAN 4 MG/2 ML) IV 12/06 185 Hormones And Synthetic Substit Sig/Joanne Start time Last Medication Dose Route Stop Time Status Admin Prednisone 3 MG DAILY 10/08 0900 AC 10/12 (predniSONE 1MG PO 10/18 09 0951 TABLET) Levothyroxine Sodium 100 MCG DAILY@0600 10/08 0600 AC 10/12 (Synthroid 100 MCG PO 12/07 06 0622 TABLET) Insulin Human Lispro See Dose AC HS 10/07 2100 AC (HUMALOG) Insts (1) SUBQ 12/06 2100 Miscellaneous Therapeutic Agen Sig/Joanne Start time Last Medication Dose Route Stop Time Status Admin Sodium Hypochlorite 473 ML DAILY 10/11 0900 CKD 10/12 (DAKINS 0.25% (HALF TOPICAL 10/21 900 0952 STRENGTH)) Dose Instructions: (1)Insulin Human Lispro (HUMALOG): MILD SLIDING SCALE (Thin, NPO, sensitive) Allergies: Coded Allergies: Sulfa (Sulfonamide Antibiotics) (Mild, BLISTERS 02/05/17) iodine (Mild, ITCHING, SCRATCHING 07/09/17) penicillin G (Mild, PASSESS OUT 07/09/17) aspirin (Mild, UPSET STOMACH 02/05/17) codeine (Mild, HEADACHE 02/05/17) Review of Systems Constitutional: Denies: chills, fatigue, fever. Skin: Denies: bruising, contusion, diaphoresis. Allergy/Immun: Denies: rhinorrhea, sneezing. Eyes: Denies: redness, discharge, visual loss/blurred. ENT: Denies: ear drainage, ear ringing, nasal congestion. Respiratory: Denies: hemoptysis, pleuritic pain, SOB. Cardiovascular: Denies: chest pain, edema, palpitations. GI: Denies: abdominal pain, diarrhea, vomiting. : Denies: dysuria, hematuria, pelvic pain. Musculoskeletal: Reports: extremity pain. Denies: joint pain, lumbar pain. Heme: Denies: adenopathy, petechiae. Endocrine: Denies: cold intolerance, heat intolerance. Neuro: Denies: focal weakness, headache, lightheaded. Psych: Denies: anxiety, depression. Objective VS/I O: Last Documented: Result Date Time Pulse Ox 96 10/12 07 B/P 150/69 10/12 07 B/P Mean 96.1 10/12 702 O2 Delivery Room air 10/12 702 Temp 97.7 10/12 07 Pulse 68 10/12 07 Resp 18 10/12 07 24 hour I O ending at 0700: 10/12 0700 10/11 1900 Intake Total 1500.00 Output Total 50 450 Balance -50 1050.00 Intake, IV 300.00 Intake, Oral 1200 Output, 50 50 Drainage Output, Urine 400 General appearance: alert, awake, oriented Head/Eyes: EOMI, normocephalic, PERRLA ENT: normal nose, normal pharynx, moist mucosal membranes Neck: full range of motion, non-tender Cardiovascular: normal capillary refill, regular rate rhythm, normal heart sounds, BP/pulses equal bilat. Respiratory: clear to auscultation, no distress Abdomen: soft, non-tender, no guarding Extremities: moves all, no edema, normal range of motion, normal sensory, no cyanosis Musculoskeletal: full range of motion, no midline vertebral tend 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, oriented X 3, CNII-XII grossly intact Skin: Right medial calf wound [id number] with pink granulation tissue throughout. Tenderness with manipulation. Well vascularized. Sanguinous drainage noted. Mild periwound erythema. Woundvac being used. Wound Assessment Wound Assessment 1: Type/cause: pressure (+Pseudomonas Aero), post-op Wound location: lower extremity Tissue layers: muscle w/out necrosis Site condition: granulating, edges approximated, Sanguinous drainage, + Pseudomonas Aero Wound margins: distinct outline attached Jaz-wound: erythema Treatment Prophylaxis Treatment Prophylaxis Ernandez documentation: The data below has been imported from nursing documentation. Any exceptions have been noted below under Provider comments. _ Nursing Documentation Date ernandez inserted: Date ernandez discontinued: _ Provider comments: [] Diagnosis, Assessment Plan Problem List/A P: 1. Encounter for postoperative wound care 2. Cellulitis of right leg 3. Musculoskeletal pain Free Text A P: Right Lower extremity Post Op Wound: Continue use of Wound vac with change qM-W-F. Order for acetic acid irrigation to wound vac via Veraflow for complete treatment of Pseudomonas, discussed with PT/Woundcare. Await evaluation with Dr. Bustos (Plastic) for future consideration of graft. Right Lower ext Cellulitis: Nonstick spray for dressing irritation. Patient to continue current IV antibiotics with Vancomycin and Cipro. Right Lower ext Pain: Continue current medication for pain management. Orders: PT/Woundcare for placement of Veraflow Acetic Acid irrigation with woundvac care at 1043 RPT #:[id number] END OF REPORT [facility] 2018-10-12 10:08:00 [facility] ([facility] Wound Care Consultation Note REPORT#:[id number] REPORT STATUS: Signed DATE:10/12/18 TIME: 1008 PATIENT: GABBIE CASTANEDA UNIT #: [id number] ROOM/BED: [place] [address] : 42 AGE: 78 SEX: F ATTEND: Chele Bass MD ADM AUTHOR: Benji Stinson * ALL edits or amendments must be made on the electronic/computer document * History of Present Illness Requesting Clinician: Dr. Sadiq Bates Reason for consult: RLE Wound Chief complaint: Slow Healing RLE wound HPI: Pt is a 78 y/o F with PMHx of DVT, history of pulmonary embolism, hypertension, gastroesophageal reflux disease, COPD, asthma, and hyperlipidemia that presents with a slow healing RLE wound and wound vac in place. She recently experienced increased bleeding at the wound site and has positive cultures for Pseudomonas. She originally obtained the wound after a fall then had surgical debridement followed by wound vac placement. Currently she admits to mild pain at the wound /woundvac which becomes severe, 03/30, with manipulation of the wound and the associated dressing. Pt currently denies any fever, chills, n/v/d. History Past History Past medical history: asthma, atrial fibrillation (Rheumatoid Arthritis), COPD, GERD, hyperlipidemia, hypertension, Rheumatoid Arthritis, Anemia, Gout Past surgical history: cholecystectomy, hysterectomy Past social history: quit smoking Past family history: Relation not specified for: Family History: Heart disease Medications: Home Medications: Medication Dose/Rte/Freq Days Qty Entered Last Max Daily Dose Reviewed POTASSIUM CHLORIDE ER 20 MEQ PO 07/09/17 10/07/18 (KLOR-CON M20) DAILY 1800 1627 175 Strength: 20 MEQ TAB.SR amLODIPine (NORVASC) 10 MG PO DAILY 1800 07/09/17 10/07/18 Strength: 10 MG TAB 1627 1758 FUROSEMIDE (LASIX) 20 MG PO DAILY 1800 07/09/17 10/07/18 Strength: 20 MG TAB 1628 175 predniSONE 3 MG PO DAILY 07/09/17 10/07/18 Strength: 1 MG TAB 1856 1757 VALSARTAN (DIOVAN) 320 MG PO DAILY 07/09/17 10/07/18 Strength: 320 MG TAB 1857 175 ALLOPURINOL (ZYLOPRIM) 300 MG PO DAILY 07/10/17 10/07/18 Strength: 300 MG TAB 1849 1758 HYDROcodone/APAP 1 TAB PO 07/10/17 10/07/18 (NORCO 10/325) TID PRN PAIN 1856 1804 Strength: 1 TAB TAB METOPROLOL SUCC XL 100 MG PO DAILY 07/10/17 10/07/18 (TOPROL XL) 1858 1757 Strength: 100 MG TAB.SA LEVOTHYROXINE 100 MCG PO DAILY 09/25/18 10/07/18 (LEVOTHROID) 1829 1758 Strength: 100 MCG TAB MULTIVITAMIN 1 TAB PO DAILY 10/07/18 10/07/18 (MULTIPLE VITAMIN) 1758 1758 Strength: 1 TAB TAB traMADol (ULTRAM) 50 MG PO 10/07/18 10/07/18 Strength: 50 MG TAB Q8H PRN PRN PAIN 1804 1804 Current Hospital Medications: 08:00 Sig/Joanne Start time Last Medication Dose Route Stop Time Status Admin Miscellaneous 1 EACH ASDIR 10/08 1210 DC Information IV 12/07 1211 (VANCOMYCIN PHARMACY TO DOSE) Anti-Infective Agents Sig/Joanne Start time Last Medication Dose Route Stop Time Status Admin Ciprofloxacin/ 200 ML Q8H 10/09 1600 AC 10/12 Dextrose IV 10/19 1601 0952 (CIPRO I.V. 400MG/ 200ML D5W) Metronidazole HCl 100 ML Q8H 10/09 1230 DC 10/11 (FLAGYL 500MG/100ML IV 10/19 1231 1134 R.T.U. PREMIX) Vancomycin HCl 1,250 MG 1400 10/08 1400 DC 10/10 (VANCOCIN HCL 1000MG IV 10/14 1559 1306 VIAL) Sodium Chloride 250 ML (NORMAL SALINE 250ML IV) Cardiovascular Drugs Sig/Joanne Start time Last Medication Dose Route Stop Time Status Admin Metoprolol Succinate 100 MG DAILY 10/08 0900 AC 10/12 (TOPROL XL 100MG PO 12/07 09 0951 TABLET SA) Valsartan 320 MG DAILY 10/08 0900 AC 10/12 (DIOVAN 80MG TABLET) PO 12/07 0901 0951 Amlodipine Besylate 10 MG 1800 10/07 1855 AC 10/11 (NORVASC 10MG TABLET) PO 12/06 185 1720 Hydralazine HCl 10 MG Q6H PRN PRN 10/07 185 AC (APRESOLINE) IV 12/06 185 Central Nervous System Agents Sig/Joanne Start time Last Medication Dose Route Stop Time Status Admin Oxycodone HCl 5 MG Q4H PRN PRN 10/10 1025 AC (OXY IR 5MG TABLET) PO 10/20 1026 Hydrocodone Bitart/ 1 TAB TID PRN 10/07 185 AC 10/11 Acetaminophen PO 10/17 185 0315 (NORCO 10/325 TABLET) Tramadol HCl 50 MG Q8H PRN PRN 10/07 1854 AC (ULTRAM 50MG TABLET) PO 12/07 1855 Acetaminophen 650 MG Q4H PRN PRN 10/07 185 AC (TYLENOL 325MG PO 12/06 1850 TABLET) Electrolytic, Caloric, And Jan Sig/Joanne Start time Last Medication Dose Route Stop Time Status Admin Potassium Chloride 20 MEQ 1800 10/08 1800 AC 10/11 (K-DUR) PO 12/07 1801 1720 Dextrose 20 GM ASDIR PRN 10/07 2014 AC (GLUCOSE) PO 12/07 2015 Dextrose/Water 25 GM ASDIR PRN 10/07 2014 AC (DEXTROSE 50% 50ML IV 12/07 2015 SYRINGE) Dextrose/Water 12.5 GM ASDIR PRN 10/07 2014 AC (DEXTROSE 50% 50ML IV 12/07 2015 SYRINGE) Furosemide 20 MG 1800 10/07 1855 AC 10/11 (LASIX) PO 12/06 1856 1720 Gastrointestinal Drugs Sig/Joanne Start time Last Medication Dose Route Stop Time Status Admin Famotidine 20 MG Q24H 10/075 AC 10/11 (PEPCID 20MG TABLET) PO 12/06 2100 1720 Ondansetron HCl 4 MG Q8H PRN PRN 10/07 1849 AC (ZOFRAN 4 MG/2 ML) IV 12/06 1850 Hormones And Synthetic Substit Sig/Joanne Start time Last Medication Dose Route Stop Time Status Admin Prednisone 3 MG DAILY 10/08 09 AC 10/12 (predniSONE 1MG PO 10/18 09 0951 TABLET) Levothyroxine Sodium 100 MCG DAILY@0600 10/08 0600 AC 10/12 (Synthroid 100 MCG PO 12/07 06 0622 TABLET) Insulin Human Lispro See Dose AC HS 10/07 2100 AC (HUMALOG) Insts (1) SUBQ 12/06 2100 Miscellaneous Therapeutic Agen Sig/Joanne Start time Last Medication Dose Route Stop Time Status Admin Sodium Hypochlorite 473 ML DAILY 10/11 899 CKD 10/12 (DAKINS 0.25% (HALF TOPICAL 10/21 900 0952 STRENGTH)) Dose Instructions: (1)Insulin Human Lispro (HUMALOG): MILD SLIDING SCALE (Thin, NPO, sensitive) Allergies: Coded Allergies: Sulfa (Sulfonamide Antibiotics) (Mild, BLISTERS 02/05/17) iodine (Mild, ITCHING, SCRATCHING 07/09/17) penicillin G (Mild, PASSESS OUT 07/09/17) aspirin (Mild, UPSET STOMACH 02/05/17) codeine (Mild, HEADACHE 02/05/17) Review of Systems Constitutional: Denies: chills, fatigue, fever. Skin: Denies: bruising, contusion, diaphoresis. Allergy/Immun: Denies: rhinorrhea, sneezing. Eyes: Denies: redness, discharge, visual loss/blurred. ENT: Denies: ear drainage, ear ringing, nasal congestion. Respiratory: Denies: hemoptysis, pleuritic pain, SOB. Cardiovascular: Denies: chest pain, edema, palpitations. GI: Denies: abdominal pain, diarrhea, vomiting. : Denies: dysuria, hematuria, pelvic pain. Musculoskeletal: Reports: extremity pain. Denies: joint pain, lumbar pain. Heme: Denies: adenopathy, petechiae. Endocrine: Denies: cold intolerance, heat intolerance. Neuro: Denies: focal weakness, headache, lightheaded. Psych: Denies: anxiety, depression. Objective VS/I O: Last Documented: Result Date Time Pulse Ox 96 10/12 702 B/P 150/69 10/12 702 B/P Mean 96.1 10/12 702 O2 Delivery Room air 10/12 702 Temp 97.7 10/12 702 Pulse 68 10/12 07 Resp 18 10/12 702 24 hour I O ending at 0700: 10/12 0700 10/11 1900 Intake Total 1500.00 Output Total 50 450 Balance -50 1050.00 Intake, IV 300.00 Intake, Oral 1200 Output, 50 50 Drainage Output, Urine 400 General appearance: alert, awake, oriented Head/Eyes: EOMI, normocephalic, PERRLA ENT: normal nose, normal pharynx, moist mucosal membranes Neck: full range of motion, non-tender Cardiovascular: normal capillary refill, regular rate rhythm, normal heart sounds, BP/pulses equal bilat. Respiratory: clear to auscultation, no distress Abdomen: soft, non-tender, no guarding Extremities: moves all, no edema, normal range of motion, normal sensory, no cyanosis Musculoskeletal: full range of motion, no midline vertebral tend 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, oriented X 3, CNII-XII grossly intact Skin: Right medial calf wound [id number] with pink granulation tissue throughout. Tenderness with manipulation. Well vascularized. Sanguinous drainage noted. Mild periwound erythema. Woundvac being used. Wound Assessment Wound Assessment 1: Type/cause: pressure (+Pseudomonas Aero), post-op Wound location: lower extremity Tissue layers: muscle w/out necrosis Site condition: granulating, edges approximated, Sanguinous drainage, + Pseudomonas Aero Wound margins: distinct outline attached Jaz-wound: erythema Treatment Prophylaxis Treatment Prophylaxis Ernandez documentation: The data below has been imported from nursing documentation. Any exceptions have been noted below under Provider comments. _ Nursing Documentation Date ernandez inserted: Date ernandez discontinued: _ Provider comments: [] Diagnosis, Assessment Plan Problem List/A P: 1. Encounter for postoperative wound care 2. Cellulitis of right leg 3. Musculoskeletal pain Free Text A P: Right Lower extremity Post Op Wound: Continue use of Wound vac with change qM-W-F. Order for acetic acid irrigation to wound vac via Veraflow for complete treatment of Pseudomonas, discussed with PT/Woundcare. Await evaluation with Dr. Bustos (Plastic) for future consideration of graft. Right Lower ext Cellulitis: Nonstick spray for dressing irritation. Patient to continue current IV antibiotics with Vancomycin and Cipro. Right Lower ext Pain: Continue current medication for pain management. Orders: PT/Woundcare for placement of Veraflow Acetic Acid irrigation with woundvac care at 1043 at 1031 RPT #:[id number] END OF REPORT [facility] 2018-10-11 12:57:00 [facility] ([facility]) Hospitalist Progress Note REPORT#:[id number] REPORT STATUS: Signed DATE:10/11/18 TIME: 1257 PATIENT: GABBIE CASTANEDA UNIT #: [id number] [facility] AGE: 78 SEX: F ATTEND: Sadiq Bates DO ADM AUTHOR: Sadiq Bates DO * ALL edits or amendments must be made on the electronic/computer document * Subjective Chief Complaint: RLE bleeding Comments: Pt seen and examined. Denies N/V/D, abd pain, h/a, dizziness, fever, chills, SOB, CP, palpitations, cough. Objective General VS/I O: Vital Signs: Date Time Temp Pulse Resp B/P B/P Pulse O2 O2 Flow FiO2 Mean Ox Delivery Rate 10/11 1226 97.5 64 18 135/70 91.9 92 Room air 10/11 0849 98.1 67 18 117/56 76.0 91 Room air 10/11 0525 98.1 66 18 117/63 81.0 92 Room air 10/11 0031 98.4 70 18 144/51 82.3 94 Room air 10/10 2034 98.1 64 19 145/64 91.0 91 Room air 10/10 1626 97.9 64 20 124/55 78.2 93 10/10 1626 97.9 64 20 124/55 78.2 93 24 hour I O ending at 0700: 10/11 0700 10/10 1900 Intake Total 400.00 1850.00 Output Total 450 Balance 400.00 1400.00 Intake, IV 400.00 550.00 Intake, Oral 1300 Output, 150 Drainage Output, Urine 300 Physical Exam General appearance: alert, awake, oriented, no acute distress, pleasant, conversational, mental status normal, no respiratory distress Neck: no JVD Cardiovascular: normal heart sounds, regular rate rhythm, no murmur Respiratory: aerating well, clear to auscultation, no distress Abdomen: obese, non-tender, normal bowel sounds, soft, no guarding Extremities: moves all, no cyanosis 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 Skin: normal temperature Wound/incision: Location: R lower leg Site Condition: wound vac applied Psychiatry: normal affect, normal judgment/insight, normal mood Results Results: labs reviewed, vital signs stable, current med profile rev'd Diagnosis, Assessment Plan Hospital course to date: Assessment: - RLE wound with new purulent cellulitis, growing pseudomonas Aeuruginos sensitive to Cipro s/p evacuation of hematoma, excisional debridment skin and subcutaneous, and ligation of saphenous vein and branches on 09/25/[address] Taylor as well as washout R medial calf wound and wound vac on 09/27/[address] Taylor. Wound appeared to be infected with significant amt of yellow purulent discharge seen in wound. Wound vac now in place - Hx of DVT, history of pulmonary embolism, not on anticoagulation due to recent hematoma. - Hypertension, stable BP - Gastroesophageal reflux disease, controlled - COPD, not in acute exacerbation - Asthma, not in acute exacerbation - Hyperlipidemia, clinically stable - Chronic Anemia, pt's H/H on admission 10.5; was 10.2 on 09/30/18 upon d/c - Hypothyroidism, clinically stable - IFG. HA1C 5.9 - RA on low dose prednisone, pain controlled - Gout Plan - Monitor H/H closely. - Discontinue Vancomycin; continue Cipro and Flagyl for today - Pain management - Home BP medication regimen - Continue home thyroid supplementation regimen - Mild SSI regimen. - PT/PT wound care DISPOSITION: - Wound vac in place. Consulted Dr. Christy, medical certification specialist. Plastics consult pending. Dr. Bass to take over care tomorrow. Problem List/A P: 1. Cellulitis of right leg Orders: Procedure Date/time Status CBC W/O DIFF 10/14 0500 Active BASIC METABOLIC PANEL 10/14 0500 Active CBC W/O DIFF 10/13 0500 Active BASIC METABOLIC PANEL 10/13 0500 Active CBC W/O DIFF 10/12 0500 Active BASIC METABOLIC PANEL 10/12 0500 Active NEG PRESSURE 50[place] [address] 10/10 UNK Complete Consultants: customs compliance specialist: Dr. Christy Plan discussed with: patient, nurse at 1357 RPT #:[id number] END OF REPORT [facility] 2018-10-10 16:26:00 [facility] ([facility]) Hospitalist Progress Note REPORT#:[id number] REPORT STATUS: Signed DATE:10/10/18 TIME: 1626 PATIENT: GABBIE CASTANEDA UNIT #: [id number] ROOM/BED: [facility] : 42 AGE: 78 SEX: F ATTEND: Sadiq Bates DO ADM AUTHOR: Sadiq Bates DO * ALL edits or amendments must be made on the electronic/computer document * Subjective Chief Complaint: RLE bleeding Comments: Pt seen and examined. No acute events reported overnight. Denies N/V/D, abd pain, h/a, dizziness, fever, chills, SOB, CP, palpitations, cough. Objective General VS/I O: Vital Signs: Date Time Temp Pulse Resp B/P B/P Pulse O2 O2 Flow FiO2 Mean Ox Delivery Rate 10/10 1205 97.5 61 16 112/58 75.9 92 Room air 10/10 0757 98.1 67 16 147/66 92.5 94 Room air 10/10 0757 98.1 67 16 147/66 92.5 94 Room air 10/10 0537 98.8 65 19 125/54 77.5 92 Room air 10/10 0058 98.2 71 18 119/57 77.6 96 Room air 10/10 2031 98.6 64 19 137/66 89.8 95 Room air 10/10 2031 98.6 64 19 137/66 89.8 95 Room air 24 hour I O ending at 0700: 10/10 0700 10/09 1900 Intake Total 300.00 550.00 Output Total Balance 300.00 550.00 Intake, IV 300.00 550.00 Number Voids 3 Physical Exam General appearance: alert, awake, oriented, pleasant, conversational, mental status normal, no respiratory distress Neck: no JVD Cardiovascular: normal heart sounds, regular rate rhythm, no murmur Respiratory: aerating well, clear to auscultation, no distress Abdomen: obese, non-tender, normal bowel sounds, soft, no guarding Extremities: moves all, no cyanosis 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 Taylor as well as washout R medial calf wound and wound vac on 09/27/[address] Taylor. Wound appeared to be infected with significant amt of yellow purulent discharge seen in wound. Wound vac now in place - Hx of DVT, history of pulmonary embolism, not on anticoagulation due to recent hematoma. - Hypertension, stable BP - Gastroesophageal reflux disease, controlled - COPD, not in acute exacerbation - Asthma, not in acute exacerbation - Hyperlipidemia, clinically stable - Chronic Anemia, pt's H/H on admission 10.5; was 10.2 on 09/30/18 upon d/c - Hypothyroidism, clinically stable - IFG. HA1C 5.9 - RA on low dose prednisone, pain controlled - Gout Plan - Monitor H/H closely. - Continue Vancomycin, Cipro and Flagyl for today - Pain management - Home BP medication regimen - Continue home thyroid supplementation regimen - Mild SSI regimen. - PT/PT wound care DISPOSITION: - Wound vac in place. Plastics consult pending Problem List/A P: 1. Cellulitis of right leg Orders: Procedure Date/time Status PHOSPHOROUS 10/11 0500 Active MAGNESIUM 10/11 0500 Active COMPREHENSIVE METABOLIC PANEL 10/11 0500 Active CBC W/O DIFF 10/11 0500 Active PHYSICIAN CONSULT 10/10 1252 Active XR SHOULDER 1V LT 10/10 0830 Complete EVAL PT LOW COMPLEX [id number] 10/08 UNK Complete THERAPEUTIC ACTVTY DIR 15 M 10/08 UNK Complete NEG PRESSURE>[place] [address] 10/08 UNK Complete GAIT TRAINING 15 MIN 41904 10/08 UNK Complete Consultants: customs compliance specialist: Dr. Christy Plan discussed with: patient, family, nurse at 0021 RPT #:[id number] END OF REPORT [facility] 2018-10-09 14:29:00 [facility] ([facility]) Hospitalist Progress Note REPORT#:[id number] REPORT STATUS: Signed DATE:10/09/18 TIME: 1429 PATIENT: GABBIE CASTANEDA LITZY UNIT #: [id number] [facility] AGE: 78 SEX: F ATTEND: Sadiq Bates DO ADM AUTHOR: Sadiq Bates DO * ALL edits or amendments must be made on the electronic/computer document * Subjective Chief Complaint: RLE bleeding Comments: Pt seen and examined. Pt having some RLE wound pain. Denies N/V/D, abd pain, h /a, dizziness, fever, chills, SOB, CP, palpitations, cough. Objective General VS/I O: Vital Signs: Date Time Temp Pulse Resp B/P B/P Pulse O2 O2 Flow FiO2 Mean Ox Delivery Rate 10/09 1230 97.9 61 16 111/58 75.5 92 Room air 10/09 0840 99.0 73 16 127/69 88.6 94 Room air 10/09 0416 98.8 65 17 123/70 87.9 94 Room air 10/08 2353 97.9 69 18 121/68 85.8 93 Room air 10/08 2054 98.4 69 18 122/66 84.3 94 Room air 10/08 1704 98.2 64 18 112/53 73.1 94 Room air 24 hour I O ending at 0700: 10/09 0700 10/08 1900 Intake Total 300 Output Total 50 500 Balance -50 -200 Intake, Oral 300 Output, 50 Drainage Output, Urine 500 Physical Exam General appearance: obese (morbid), alert, awake, oriented, no acute distress, pleasant, conversational, mental status normal, no respiratory distress Neck: no JVD Cardiovascular: normal heart sounds, regular rate rhythm, no murmur Respiratory: aerating well, clear to auscultation, no distress Abdomen: obese, non-tender, normal bowel sounds, soft, no guarding Extremities: moves all, no cyanosis 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 Taylor as well as washout R medial calf wound and wound vac on 09/27/[address] Taylor. Wound appeared to be infected with significant amt of yellow purulent discharge seen in wound. Wound vac now in place - Hx of DVT, history of pulmonary embolism, not on anticoagulation due to recent hematoma. - Hypertension, stable BP - Gastroesophageal reflux disease, controlled - COPD, not in acute exacerbation - Asthma, not in acute exacerbation - Hyperlipidemia, clinically stable - Chronic Anemia, pt's H/H on admission 10.5; was 10.2 on 09/30/18 upon d/c - Hypothyroidism, clinically stable - IFG. HA1C 5.9 - RA on low dose prednisone, pain controlled - Gout Plan - Monitor H/H closely. - Continue Vancomycin, add Cipro and Flagyl today - Peding CT RLE to evaluate further - Pain management - Home BP medication regimen - Continue home thyroid supplementation regimen - Mild SSI regimen. - PT/PT wound care DISPOSITION: - Pending final results of leg wound cx. Wound vac in place. Problem List/A P: 1. Cellulitis of right leg Orders: Procedure Date/time Status CT LOWER EXTRM W/O C RT 10/09 1310 Active CHANGE PATIENT STATUS 10/09 0942 Active Plan discussed with: patient, family, nurse at 1604 RPT #:[id number] END OF REPORT [facility] 2018-10-08 13:57:00 [facility] ([facility]) Hospitalist History Physical REPORT#:[id number] REPORT STATUS: Signed DATE:10/08/18 TIME: 1357 PATIENT: GABBIE CASTANEDA UNIT #: [id number] [facility] AGE: 78 SEX: F ATTEND: Sadiq Bates DO ADM AUTHOR: Sadiq Bates DO * ALL edits or amendments must be made on the electronic/computer document * History of Present Illness HPI Chief complaint: R leg bleeding PCP: PCP: Chele Bass MD HPI: Pt is a 78 y/o F with PMHx of DVT, history of pulmonary embolism, hypertension, gastroesophageal reflux disease, COPD, asthma, and hyperlipidemia who presented to the ED via EMS from [place] c/o wound bleeding noted by wound care there at the facility. Pt indicates that yesterday during dressing changes, the nurse noticed increased bleeding and wanted the pt to come in to be evaluated. Pt had been admitted on 09/25/18 and d/c'd on 09/30/18 when she presented to hospital with a similar presentation. Pt had CT of R lower leg then that showed hematoma and pt had surgical intervention with wound vac placement after this. Pt states that she initially suffered the wound after experiencing a fall. S/p the fall pt had surgery performed to remove tissue and subsequent wound vac palced. Pt currently denies any fever, chills, n/v/d. Informant/historian: patient, prior records History Past medical history: Reports: Arthritis (Rheumatoid, on low dose predni), Atrial fib/flutter ( hyperthyroidism, 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 Additional medical history: Gout (refuses allopurinol), panic disorder, anemia, colonoscopy 3 years ago (large polyp, to return in 3 years, Dr. Sanchez), EGD 3 years ago (Dr. Sanchez), hemorrhoids Past surgical history: Reports: Cholecystectomy, Hysterectomy. 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 Medication/Allergy-Vaccine Hx Medications: Home Medications: Medication Dose/Rte/Freq Days Qty Entered Last Max Daily Dose Reviewed POTASSIUM CHLORIDE ER 20 MEQ PO 07/09/17 10/07/18 (KLOR-CON M20) DAILY 1800 162 175 Strength: 20 MEQ TAB.SR amLODIPine (NORVASC) 10 MG PO DAILY 1800 07/09/17 10/07/18 Strength: 10 MG TAB 1627 1758 FUROSEMIDE (LASIX) 20 MG PO DAILY 1800 07/09/17 10/07/18 Strength: 20 MG TAB 1628 1757 predniSONE 3 MG PO DAILY 07/09/17 10/07/18 Strength: 1 MG TAB 185 175 VALSARTAN (DIOVAN) 320 MG PO DAILY 07/09/17 10/07/18 Strength: 320 MG TAB 1857 1757 ALLOPURINOL (ZYLOPRIM) 300 MG PO DAILY 07/10/17 10/07/18 Strength: 300 MG TAB 1849 1758 HYDROcodone/APAP 1 TAB PO 07/10/17 10/07/18 (NORCO 10/325) TID PRN PAIN 1855 180 Strength: 1 TAB TAB METOPROLOL SUCC XL 100 MG PO DAILY 07/10/17 10/07/18 (TOPROL XL) 1858 1757 Strength: 100 MG TAB.SA LEVOTHYROXINE 100 MCG PO DAILY 09/25/18 10/07/18 (LEVOTHROID) 1829 175 Strength: 100 MCG TAB MULTIVITAMIN 1 TAB PO DAILY 10/07/18 10/07/18 (MULTIPLE VITAMIN) 175 175 Strength: 1 TAB TAB traMADol (ULTRAM) 50 MG PO 10/07/18 10/07/18 Strength: 50 MG TAB Q8H PRN PRN PAIN 1804 1804 Current Hospital Medications: 08:00 Sig/Joanne Start time Last Medication Dose Route Stop Time Status Admin Miscellaneous 1 EACH ASDIR 10/08 1210 CKD Information IV 12/07 1211 (VANCOMYCIN PHARMACY TO DOSE) Anti-Infective Agents Sig/Joanne Start time Last Medication Dose Route Stop Time Status Admin Vancomycin HCl 1,250 MG 1400 10/08 1400 AC 10/08 (VANCOCIN HCL 1000MG IV 10/14 1559 1431 VIAL) Sodium Chloride 250 ML (NORMAL SALINE 250ML IV) Cardiovascular Drugs Sig/Joanne Start time Last Medication Dose Route Stop Time Status Admin Metoprolol Succinate 100 MG DAILY 10/08 0900 AC 10/08 (TOPROL XL 100MG PO 12/07 0901 0836 TABLET SA) Valsartan 320 MG DAILY 10/08 0900 AC 10/08 (DIOVAN 80MG TABLET) PO 12/07 0901 0836 Amlodipine Besylate 10 MG 1800 10/07 185 AC 10/07 (NORVASC 10MG TABLET) PO 12/06 185 2154 Hydralazine HCl 10 MG Q6H PRN PRN 10/07 1850 AC (APRESOLINE) IV 12/06 185 Central Nervous System Agents Sig/Joanne Start time Last Medication Dose Route Stop Time Status Admin Morphine Sulfate 2 MG Q4H PRN PRN 10/08 0445 AC 10/08 (morphine SULFATE) IV 10/18 0446 1912 Hydrocodone Bitart/ 1 TAB TID PRN 10/07 1855 AC Acetaminophen PO 10/17 185 (NORCO 10/325 TABLET) Tramadol HCl 50 MG Q8H PRN PRN 10/07 185 AC (ULTRAM 50MG TABLET) PO 12/07 1855 Acetaminophen 650 MG Q4H PRN PRN 10/07 1850 AC (TYLENOL 325MG PO 12/06 185 TABLET) Electrolytic, Caloric, And Jan Sig/Joanne Start time Last Medication Dose Route Stop Time Status Admin Potassium Chloride 20 MEQ 1800 10/08 1800 AC 10/08 (K-DUR) PO 12/07 1801 1728 Dextrose 20 GM ASDIR PRN 10/07 2014 AC (GLUCOSE) PO 12/07 2015 Dextrose/Water 25 GM ASDIR PRN 10/07 2014 AC (DEXTROSE 50% 50ML IV 12/07 2015 SYRINGE) Dextrose/Water 12.5 GM ASDIR PRN 10/07 2014 AC (DEXTROSE 50% 50ML IV 12/07 2015 SYRINGE) Furosemide 20 MG 1800 10/07 185 AC 10/08 (LASIX) PO 12/06 185 1728 Gastrointestinal Drugs Sig/Joanne Start time Last Medication Dose Route Stop Time Status Admin Famotidine 20 MG Q24H 10/07 1854 AC 10/08 (PEPCID 20MG TABLET) PO 12/06 210 1728 Ondansetron HCl 4 MG Q8H PRN PRN 10/07 1849 AC (ZOFRAN 4 MG/2 ML) IV 12/06 185 Hormones And Synthetic Substit Sig/Joanne Start time Last Medication Dose Route Stop Time Status Admin Prednisone 3 MG DAILY 10/08 0900 AC 10/08 (predniSONE 1MG PO 10/18 0901 0836 TABLET) Levothyroxine Sodium 100 MCG DAILY@0600 10/08 0600 AC 10/08 (Synthroid 100 MCG PO 12/07 0601 0505 TABLET) Insulin Human Lispro See Dose AC HS 10/07 2100 AC (HUMALOG) Insts (1) SUBQ 12/06 2100 Miscellaneous Therapeutic Agen Sig/Joanne Start time Last Medication Dose Route Stop Time Status Admin Allopurinol 300 MG DAILY 10/08 0900 AC 10/08 (ZYLOPRIM) PO 12/07 0901 0835 Dose Instructions: (1)Insulin Human Lispro (HUMALOG): MILD SLIDING SCALE (Thin, NPO, sensitive) Allergies: Coded Allergies: Sulfa (Sulfonamide Antibiotics) (Mild, BLISTERS 02/05/17) iodine (Mild, ITCHING, SCRATCHING 07/09/17) penicillin G (Mild, PASSESS OUT 07/09/17) aspirin (Mild, UPSET STOMACH 02/05/17) codeine (Mild, HEADACHE 02/05/17) Review of Systems Free Text ROS Notes: Free Text ROS Notes: Constitutional Denies: Chills, Fever, Weakness - generalized. Musculoskeletal Reports: Extremity pain. Denies: Back pain, Joint pain, Neck pain. Skin Reports: Ulceration, bleeding from right lower extremity. Denies: Rash, Swelling. Neurologic Denies: Focal weakness, Generalized weakness, Headache, Lightheaded, Numbness. All systems rev neg except as noted above Objective General VS/I O: Vital Signs: Date Time Temp Pulse Resp B/P B/P Pulse O2 O2 Flow FiO2 Mean Ox Delivery Rate 10/08 1208 98.8 73 18 114/65 81.2 94 Room air 10/08 0755 99.1 78 18 120/63 81.9 94 Room air 10/08 0426 99.0 83 18 130/63 85.6 94 10/07 2322 98.1 69 16 148/73 98.0 96 Room air 10/07 2149 99.0 64 16 176/73 107 100 10/07 1806 98.1 57 18 134/63 86 97 Room air 10/07 1720 98.0 57 17 125/59 81 94 Room air 24 hour I O ending at 0700: 10/08 0700 10/07 1900 Intake Total Output Total Balance Patient 110.455 kg Weight Weight Stated/Reported Measurement Method General/Const Awake, Alert, No acute distress, Well appearing, Not toxic appearing Respiratory/Chest Atraumatic, Breath sounds NL, Breath sounds = bilat, No respiratory distress Cardiovascular Heart rate NL, Regular rhythm, Heart sounds NL, Cap refill not delayed, Peripheral circulation NL Lower Ext/Pelvis/MS Neurologic intact, Vascular intact Text/Dict Notes right leg 30x15 cm skin defect w/ wound with yellow purulent discharge noted, pink well perfused. Small amount red blood noted in creases. No active bleeding. Ankle/Foot Inspection NL, Full range of motion, No deformity, Neurologic intact, Vascular intact Skin No rash, Warm Neurologic Oriented X3, Speech NL, No motor deficits, No sensory deficits, CN II - XII intact, Memory NL Head Atraumatic, Normocephalic Eyes Atraumatic, PERRL, EOMI Ears/Nose/Throat Atraumatic, Airway patent Medications: Active Meds + DC'd Last 24 Hrs Potassium Chloride 20 MEQ 1800 PO Vancomycin HCl 1,250 MG 1400 IV Sodium Chloride 250 ML Miscellaneous Information 1 EACH ASDIR IV (CKD) Allopurinol 300 MG DAILY PO Metoprolol Succinate 100 MG DAILY PO Prednisone 3 MG DAILY PO Valsartan 320 MG DAILY PO Levothyroxine Sodium 100 MCG DAILY@0600 PO Morphine Sulfate 2 MG Q4H PRN PRN IV Insulin Human Lispro MILD SLIDING SCALE (Thin, NPO, sensitive) AC HS SUBQ Dextrose 20 GM ASDIR PRN PO Dextrose/Water 25 GM ASDIR PRN IV Dextrose/Water 12.5 GM ASDIR PRN IV Amlodipine Besylate 10 MG 1800 PO Famotidine 20 MG Q24H PO Furosemide 20 MG 1800 PO Hydrocodone Bitart/Acetaminophen 1 TAB TID PRN PO Tramadol HCl 50 MG Q8H PRN PRN PO Acetaminophen 650 MG Q4H PRN PRN PO Hydralazine HCl 10 MG Q6H PRN PRN IV Ondansetron HCl 4 MG Q8H PRN PRN IV Results Findings/Data: Laboratory Tests 10/08 10/08 10/08 10/07 10/07 1106 0611 0357 2201 1855 Chemistry Sodium (133 - 145 MMOL/L) 140 138 Potassium (3.6 - 5.2 MMOL/L) 4.0 4.1 Chloride (100 - 108 MMOL/L) 102 99 L Carbon Dioxide (22 - 32 MMOL/L) 29 32 BUN (6 - 20 MG/DL) 26 H 33 H Creatinine (0.60 - 1.00 MG/DL) 0.91 1.29 H Estimated GFR (MDRD) (39 - 90) 60 40 Glucose (65 - 99 MG/DL) 102 H 150 H POC Glucose (65 - 99 MG/DL) 132 H 112 H 90 Calcium (8.7 - 10.5 MG/DL) 8.9 8.6 L Laboratory Tests 10/07 1855 Coagulation PT (9.6 - 12.3 SECONDS) 12.8 H INR 1.13 Laboratory Tests 10/08 10/07 0357 1855 Hematology WBC (4.80 - 10.80 x10 3/uL) 12.04 H 11.73 H RBC (4.2 - 5.4 x10 6/uL) 3.55 L 3.62 L Hgb (12.0 - 16.0 G/DL) 10.6 L 10.5 L Hct (37 - 47 %) 32.9 L 33.5 L MCV (81 - 99 FL) 92.7 92.5 MCH (27 - 31 PG) 29.9 29.0 MCHC (33 - 37 G/DL) 32.2 L 31.3 L RDW Coeff of Skylar (11.5 - 14.5 %) 14.3 14.2 Plt Count (150 - 450 x10 3/uL) 286 298 MPV (7.4 - 10.4 FL) 10.0 10.1 Neut % (Auto) (42 - 86 %) 75.3 75.5 Lymph % (Auto) (24 - 44 %) 9.2 L 8.7 L [place] % (Auto) (0.0 - 4.0 %) 12.2 H 12.6 H Eos % (Auto) (0.0 - 2.7 %) 2.2 1.9 Baso % (Auto) (0.0 - 0.5 %) 0.4 0.4 Eos # (Auto) (0.0 - 0.5 x10 3/uL) 0.26 0.22 Baso # (Auto) (0.0 - 0.2 x10 3/uL) 0.05 0.05 Abs Immat Gran (auto) (0.00 - 0.03 x10 3/uL) 0.09 H 0.11 H Absolute Neuts (auto) (1.8 - 7.7 x10 3/uL) 9.06 H 8.85 H Absolute Lymphs (auto) (1.0 - 4.8 x10 3/uL) 1.11 1.02 Absolute Monos (auto) (0.0 - 0.8 x10 3/uL) 1.47 H 1.48 H Absolute Nucleated RBC (0.0 - 0.2 X10 3/uL) 0.0 0.0 Immature Gran % (0.0 - 2.0 %) 0.7 0.9 Nucleated RBC % (0.0 - 0.0 %) 0.0 0.0 Results: labs reviewed, vital signs stable, current med profile rev'd Diagnosis, Assessment Plan Free Text DxA P Notes Free Text DxA P Notes: Assessment: - RLE wound s/p evacuation of hematoma, excisional debridment skin and subcutaneous, and ligation of saphenous vein and branches on 09/25/[address] Taylor as well as washout R medial calf wound and wound vac on 09/27/[address] Taylor. Wound appears to be infected with significant amt of yellow purulent discharge seen in wound. - Hx of DVT, history of pulmonary embolism, not on anticoagulation due to recent hematoma. - Hypertension, stable BP - Gastroesophageal reflux disease, controlled - COPD, not in acute exacerbation - Asthma, not in acute exacerbation - Hyperlipidemia, clinically stable - Chronic Anemia, pt's H/H on admission 10.5; was 10.2 on 09/30/18 upon d/c - Hypothyroidism, clinically stable - Hyperglycemia - RA on low dose prednisone, pain controlled - Gout Plan - Monitor H/H closely. - Start Vancomycin, pending blood and wound cx - Get CT RLE to evaluate further - Pain management - Home BP medication regimen - Continue home thyroid supplementation regimen - Mild SSI regimen. Will get HA1C, and if not diabetic will d/c insulin - PT/PT wound care DISPOSITION: Admitted to the medical surgical floor for further evaluation. at 2137 RPT #:[id number] END OF REPORT [facility] 2018-10-08 12:30:00 [facility] ([facility]) Pharmacy Prog.Note-Vancomycin REPORT#:[id number] REPORT STATUS: Signed DATE:10/08/18 TIME: 1230 PATIENT: MIGUEL CASTANEDADOROTHY MCGHEE UNIT #: [id number] ROOM/BED: [place] [address] : 42 AGE: 78 SEX: F ATTEND: Sadiq Bates DO ADM AUTHOR: Kailyn Castaneda RPh * ALL edits or amendments must be made on the electronic/computer document * Vancomycin Vancomycin Treatment plan: MORBID OBESE WITH BMI OF 46 WILL DOSE USING ABW 73 AND SCR 0.91 CALC DOSE OF 1250 Q24 FOR PREDICTED TROUGH OF 16.7 at 1233 RPT #:[id number] END OF REPORT [facility] 2018-10-07 17:29:00 [facility] ([facility]) OR A CAMPUS OF [facility] EMERGENCY PROVIDER REPORT REPORT#:[id number] REPORT STATUS: Signed DATE:10/07/18 TIME: 172 PATIENT: MANOHARGABBIE UNIT #: [id number] ROOM/BED: [facility]307-1 AGE: 78 SEX: F PCP PHYS: Chele Bass MD SERVICE AUTHOR: Nadir Key MD * ALL edits or amendments must be made on the electronic/computer document * Nadir Key. 10/07/181728: HPI-Extremity Prob Lower General Confirmed Patient Yes Patient Type New patient Initial Greet Date/Time 10/07/181725 Presentation Chief Complaint Leg problem R Hx Obtained From Patient Onset Occurred Chronic Symptom Duration Chronic Caused by Fall on ground Location Leg R Quality Painful Severity: Current Moderate Associated Other Pt denies other symptoms Exacerbated by Nothing Relieved by Nothing Free Text HPI Notes Free Text HPI Notes Pt is a 78 y/o F who presents to the ED via EMS from [place] w/ c/o wound to the RLE onset weeks ago. Pt indicates that today during dressing changes, the nurse noticed increased bleeding and wanted the pt to come in to be evaluated. Pt states that she initially suffered the wound after experiencing a fall. S/p the fall pt had surgery performed to remove tissue and subsequent wound vac palced. Pt currently denies any fever, chills, n/v/d. Portions of this section were scribed by Rubén Flores on 10/07/18 at 1751 Review of Systems ROS Statements All systems rev neg except as marked. Focused Review of Systems Constitutional Denies: Chills, Fever, Weakness - generalized. Musculoskeletal Reports: Extremity pain. Denies: Back pain, Joint pain, Neck pain. Skin Reports: Ulceration. Denies: Rash, Swelling. Neurologic Denies: Focal weakness, Generalized weakness, Headache, Lightheaded, Numbness. Portions of this section were scribed by Rubén Flores on 10/07/18 at 1727 Past Medical History - Adult Stated Complaint WOUND TO RLE Allergies Coded Allergies: Sulfa (Sulfonamide Antibiotics) (Mild, BLISTERS 02/05/17) iodine (Mild, ITCHING, SCRATCHING 07/09/17) penicillin G (Mild, PASSESS OUT 07/09/17) aspirin (Mild, UPSET STOMACH 02/05/17) codeine (Mild, HEADACHE 02/05/17) Home Medications Reported Medications POTASSIUM CHLORIDE ER (KLOR-CON M20) 20 MEQ PO DAILY 1800 amLODIPine (NORVASC) 10 MG PO DAILY 1800 FUROSEMIDE (LASIX) 20 MG PO DAILY 1800 predniSONE 3 MG PO DAILY VALSARTAN (DIOVAN) 320 MG PO DAILY ALLOPURINOL (ZYLOPRIM) 300 MG PO DAILY HYDROcodone/APAP (NORCO 10/325) 1 TAB PO TID PRN PAIN METOPROLOL SUCC XL (TOPROL XL) 100 MG PO DAILY LEVOTHYROXINE (LEVOTHROID) 100 MCG PO DAILY MULTIVITAMIN (MULTIPLE VITAMIN) 1 TAB PO DAILY traMADol (ULTRAM) 50 MG PO Q8H PRN PRN PAIN Review of Nursing Notes Rev avail, and agree Past Medical History: Reports: Arthritis (Rheumatoid, on low dose predni), Atrial fib/flutter ( hyperthyroidism, 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 Additional Medical History Gout (refuses allopurinol), panic disorder, anemia, colonoscopy 3 years ago (large polyp, to return in 3 years, [address]. Sanchez), EGD 3 years ago (Dr. Sanchez), hemorrhoids Past Surgical History: Reports: Cholecystectomy, Hysterectomy. 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, [employer] Portions of this section were scribed by Rubén Flores on 10/07/18 at 1729 Physical Exam Vital Signs Vital Signs Review of Vital Signs Reviewed Focused PE General/Const General/Const Awake, Alert, No acute distress, Well appearing, Not toxic appearing Resp/Chest Respiratory/Chest Atraumatic, Breath sounds NL, Breath sounds = bilat, No respiratory distress Cardiovascular Cardiovascular Heart rate NL, Regular rhythm, Heart sounds NL, Cap refill not delayed, Peripheral circulation NL MS Lower Extrem Lower Ext/Pelvis/MS Neurologic intact, Vascular intact Text/Dict Notes right leg 30x15 cm skin defect w/ healing wound, pink well perfused. Small amount red blood noted in creases. No active bleeding. MS Ankle/Foot Ankle/Foot Inspection NL, Full range of motion, No deformity, Neurologic intact, Vascular intact Skin Skin No rash, Warm Text/Dict Notes right leg 30x15 cm skin defect w/ healing wound, pink well perfused. Small amount red blood noted in creases. No active bleeding. Neurologic Neurologic Oriented X3, Speech NL, No motor deficits, No sensory deficits, CN II - XII intact, Memory NL Additional PE MS Head Head Atraumatic, Normocephalic Eyes Eyes Atraumatic, PERRL, EOMI Ears/Nose/Throat Ears/Nose/Throat Atraumatic, Airway patent Portions of this section were scribed by Rubén Flores on 10/07/18 at 1729 Interpretation Diagnostics Lab Results Interpretation Considerations Reviewed prior records Results Laboratory Tests 10/07/181854: [Embedded Image Not Available] Laboratory Tests: 10/07 1854 Chemistry Sodium (133 - 145 MMOL/L) 138 Potassium (3.6 - 5.2 MMOL/L) 4.1 Chloride (100 - 108 MMOL/L) 99 L Carbon Dioxide (22 - 32 MMOL/L) 32 BUN (6 - 20 MG/DL) 33 H Creatinine (0.60 - 1.00 MG/DL) 1.29 H Estimated GFR (MDRD) (39 - 90) 40 Glucose (65 - 99 MG/DL) 150 H Calcium (8.7 - 10.5 MG/DL) 8.6 L Coagulation PT (9.6 - 12.3 SECONDS) 12.8 H INR 1.13 Hematology WBC (4.80 - 10.80 x10 3/uL) 11.73 H RBC (4.2 - 5.4 x10 6/uL) 3.62 L Hgb (12.0 - 16.0 G/DL) 10.5 L Hct (37 - 47 %) 33.5 L MCV (81 - 99 FL) 92.5 MCH (27 - 31 PG) 29.0 MCHC (33 - 37 G/DL) 31.3 L RDW Coeff of Skylar (11.5 - 14.5 %) 14.2 Plt Count (150 - 450 x10 3/uL) 298 MPV (7.4 - 10.4 FL) 10.1 Neut % (Auto) (42 - 86 %) 75.5 Lymph % (Auto) (24 - 44 %) 8.7 L [place] % (Auto) (0.0 - 4.0 %) 12.6 H Eos % (Auto) (0.0 - 2.7 %) 1.9 Baso % (Auto) (0.0 - 0.5 %) 0.4 Eos # (Auto) (0.0 - 0.5 x10 3/uL) 0.22 Baso # (Auto) (0.0 - 0.2 x10 3/uL) 0.05 Abs Immat Gran (auto) (0.00 - 0.03 x10 3/uL) 0.11 H Absolute Neuts (auto) (1.8 - 7.7 x10 3/uL) 8.85 H Absolute Lymphs (auto) (1.0 - 4.8 x10 3/uL) 1.02 Absolute Monos (auto) (0.0 - 0.8 x10 3/uL) 1.48 H Absolute Nucleated RBC (0.0 - 0.2 X10 3/uL) 0.0 Immature Gran % (0.0 - 2.0 %) 0.9 Nucleated RBC % (0.0 - 0.0 %) 0.0 Lab Statement Laboratory studies reviewed and considered in the medical decision-making. Portions of this section were scribed by Rubén Flores on 10/07/18 at 1729 Re-Evaluation MDM ED Course Medication(s) Ordered Patient Discharge Departure Vital Signs/Condition Vital Signs Condition Stable Pt/Provider Handoff Shift Change Note This patient's care has been transferred to the incoming physician. We discussed : the patient's chief complaint; labs and imaging that have been completed and those that are still pending; procedures that have been completed and those remaining to be done; any treatment provided and the patient's response to treatment; input from consultants (if any); the remaining treatment plan. The incoming physician will follow up on all pending labs and imaging, make any necessary changes to the current impression and/or treatment plan and provide a final disposition. Care Transferred to Dr. Barron Care Transferred at 1800 Discussed Complaint(s) Yes Supervising Physician Note Scribe Statement Rubén Flores, 10/07/18 4803, scribing for and in the presence of [Dr. Key ]. Signed By: Rubén Flores, 10/07/18 3583 Provider Scribed Statement I personally performed the services described in this documentation and reviewed the documentation that was dictated to the scribe(s) in my presence, and it accurately records my words and actions. Nadir Key., 10/08/18 Portions of this section were scribed by Rubén Flores on 10/07/18 at 1751 Portions of this section were scribed by Gregorio Frank on 10/07/18 at 1847 Portions of this section were scribed by Gregorio Frank on 10/07/18 at 1809 Lee Hall 10/07/18 1809: Physical Exam Vital Signs Vital Signs First Documented: Result Date Time Pulse Ox 94 10/07 1720 B/P 125/59 10/07 1720 B/P Mean 81 10/07 1720 O2 Delivery Room air 10/07 1720 Temp 36.7 10/07 1720 Pulse 57 10/07 1720 Resp 17 10/07 1720 Last Documented: Result Date Time Pulse Ox 97 10/07 1806 B/P 134/63 10/07 1806 B/P Mean 86 10/07 180 O2 Delivery Room air 10/07 180 Temp 36.7 10/07 180 Pulse 57 10/07 1806 Resp 18 10/07 1806 Portions of this section were scribed by Gregorio Frank on 10/07/18 at 1809 Re-Evaluation MDM ED Course Medication(s) Ordered Medication(s) Ordered: Cardiovascular Drugs Sig/Joanne Start time Last Medication Dose Route Stop Time Status Admin Metoprolol Succinate 100 MG DAILY 10/08 0900 AC 10/08 PO 12/07 0901 0836 Valsartan 320 MG DAILY 10/08 0900 AC 10/08 PO 12/07 0901 0836 Amlodipine Besylate 10 MG 1800 10/07 185 AC 10/07 PO 12/06 185 215 Hydralazine HCl 10 MG Q6H PRN PRN 10/07 185 AC IV 12/06 185 Central Nervous System Agents Sig/Joanne Start time Last Medication Dose Route Stop Time Status Admin Hydrocodone Bitart/ 1 TAB TID PRN 10/07 185 AC Acetaminophen PO 10/17 185 Tramadol HCl 50 MG Q8H PRN PRN 10/07 185 AC PO 12/06 185 Acetaminophen 650 MG Q4H PRN PRN 10/07 185 AC PO 12/06 185 Electrolytic, Caloric, And Jan Sig/Joanne Start time Last Medication Dose Route Stop Time Status Admin Potassium Chloride 20 MEQ 1800 10/08 1800 AC PO 12/07 1801 Furosemide 20 MG 1800 10/07 1855 AC PO 12/06 1856 Gastrointestinal Drugs Sig/Joanne Start time Last Medication Dose Route Stop Time Status Admin Famotidine 20 MG Q24H 10/07 185 AC 10/07 PO 12/06 2101 2154 Ondansetron HCl 4 MG Q8H PRN PRN 10/07 1850 AC IV 12/06 185 Hormones And Synthetic Substit Sig/Joanne Start time Last Medication Dose Route Stop Time Status Admin Prednisone 3 MG DAILY 10/08 09 AC 10/08 PO 10/18 0901 0836 Levothyroxine Sodium 100 MCG DAILY@0600 10/08 0600 AC 10/08 PO 12/07 0601 0505 Miscellaneous Therapeutic Agen Sig/Joanne Start time Last Medication Dose Route Stop Time Status Admin Allopurinol 300 MG DAILY 10/08 0900 AC 10/08 PO 12/07 0901 0835 Patient Discharge Departure Vital Signs/Condition Vital Signs First Documented: Result Date Time Pulse Ox 94 10/07 1720 B/P 125/59 10/07 1720 B/P Mean 81 10/07 1720 O2 Delivery Room air 10/07 1720 Temp 36.7 10/07 1720 Pulse 57 10/07 1720 Resp 17 10/07 1720 Last Documented: Result Date Time Pulse Ox 97 10/07 1806 B/P 134/63 10/07 1806 B/P Mean 86 10/07 1806 O2 Delivery Room air 10/07 180 Temp 36.7 10/07 1806 Pulse 57 10/07 1806 Resp 18 10/07 1806 All vital signs available at the time of this entry have been reviewed. Condition Stable Clinical Impression Clinical Impression Primary Impression: Encounter for postoperative wound care Disposition Decision Admit Admit Physician Name Denton Masterson MD Admit Physician Hospitalist Request Time 182 Request Date 10/07/18 )( Admission Accepts Yes )( Accepted Time 1846 )( Accepted Date 10/07/18 Call Information will see patient, agrees with eval, agrees with plan Discharge/Care Plan Counseled Regarding Diagnosis, Lab results, Need for admission Admit Note I have spoken with the patient and/or caregivers. I have explained the patient's condition, diagnoses and treatment plan based on the information available to me at this time. I have answered the patient's and/or caregiver's questions and addressed any concerns. The patient and/or caregivers have as good an understanding of the patient's diagnosis, condition and treatment plan as can be expected at this point. The patient has been stabilized within the capability of the emergency department. The patient will be transported for further care and management or will be moved to an observation or inpatient service. I have communicated with the staff or medical practitioner taking over this patient's care. Supervising Physician Note Scribe Statement Gregorio Frank, 10/07/181847, scribing for and in the presence of [Dr. Hall]. Signed By: Gregorio rFank, 10/07/181847 Provider Scribed Statement I personally performed the services described in this documentation and reviewed the documentation that was dictated to the scribe(s) in my presence, and it accurately records my words and actions. Lee Hall, 10/07/18 Portions of this section were scribed by Gregorio Frank on 10/07/18 at 1847 at 1900 at 1112 RPT #:[id number] END OF REPORT [facility] 2018-09-30 12:14:00 [facility] ([facility]) Discharge Summary REPORT#:[id number] REPORT STATUS: Signed DATE:09/30/18 TIME: 1214 PATIENT: GABBIE CASTANEDA UNIT #: [id number] ROOM/BED: [address]-1 : 42 AGE: 78 SEX: F ATTEND: Chele Bass MD ADM AUTHOR: Vasquez Noel DO R2 * ALL edits or amendments must be made on the electronic/computer document * General Information Date of admission: Observation Start Date: Date of admission: 09/25/18 Date of discharge: 10/01/18 Admission diagnosis: R. LE hematoma Mechanical Fall Hx of DVT Hx of PE Anemia Htn GERD COPD/Asthma HLD Discharge diagnosis: R. LE hematoma Mechanical Fall Hx of DVT Hx of PE Anemia Deconditioning Htn GERD COPD/Asthma HLD Hospital course: Patient is a 78 yo F on Xarelto for a hx of DVT/PE, presented to [facility] ED chief Complaint of a hematoma second to a mechanical fall. On 09/23/18 the patient was working in her yard and tripped over a tree root and hit her head on the side of her house. She was evaluated at that time with a CT scan on her head and C- spine and a Knee and Ankle Xray that was negative for acute disease. The patient returned to the hospital on 09/25/18 due to an increasing hematome to her R. LE. Trauma/Orthopedic surgery was consulted on admission. CT scan of her R LE at this time showed a large hematoma. The patient underwent surgical evacuation and excisional debridement of skin and subcuaneous ligation of saphenous vein and branches by Dr. Taylor on 09/25/18 and futher surgical washout and evaluation on 09/27/18. The patient tolerated her procedures without complication save for some jaw pain. Her home Xarelto was held due to her active bleeding and the patient was made aware of the increased clotting risk due to her history of DVT and PE. The patient recieved 4 untis of blood and 2 units of FFP due to her wound. Wound care was consulted for management of her wound vac. PT worked with the patient due to deconditioning. Case managment was consulted for SNF placement. When arrangements had been made the patient was discharged to her SNF. The patient was instructed to follow up with her pcp in one week to decide when her anticoagulation should be restarted. She was instructed to follow up with her surgeon in 3-4 weeks. Consultants: orthopedics Pt. condition on discharge: improved, stable Med Rec Med Rec Discharge meds: Stop taking the following medications: [PAPAYA ENZYME] 4 TABS CAP.CHEW MAG CARB/AL HYDROX (GAVISCON 358-95 MG/15ML) 355 ML ORAL.SUSP ORAL EVERY 12 HOURS. APIXABAN (ELIQUIS) 5 MG TAB ORAL DIRECTED. Qty = [address] (PROTONIX) 40 MG TAB.DR ORAL DAILY. Qty = 30 RIVAROXABAN (XARELTO) 20 MG TAB ORAL DAILY. Continue taking these medications: POTASSIUM CHLORIDE ER (KLOR-CON M20) 20 MEQ TAB.SR 20 MILLIEQUIVALENT ORAL DAILY AT 1800. amLODIPine (NORVASC) 10 MG TAB 10 MILLIGRAM ORAL DAILY AT 1800. FUROSEMIDE (LASIX) 20 MG TAB 20 MILLIGRAM ORAL DAILY AT 1800. predniSONE (predniSONE) 1 MG TAB 3 MILLIGRAM ORAL DAILY. VALSARTAN (DIOVAN) 320 MG TAB 320 MILLIGRAM ORAL DAILY. ALLOPURINOL (ZYLOPRIM) 300 MG TAB 300 MILLIGRAM ORAL DAILY. HYDROcodone/APAP (NORCO 10/325) 1 TAB TAB 1 TABLET ORAL THREE TIMES A DAY. as needed for PAIN METOPROLOL SUCC XL (TOPROL XL) 100 MG TAB.SA 100 MILLIGRAM ORAL DAILY. LEVOTHYROXINE (LEVOTHROID) 100 MCG TAB 100 MICROGRAM ORAL DAILY. at 1231 RPT #:[id number] END OF REPORT [facility] 2018-09-30 12:14:00 [facility] ([facility]) Discharge Summary REPORT#:[id number] REPORT STATUS: Signed DATE:09/30/18 TIME: 1214 PATIENT: GABBIE CASTANEDA UNIT #: [id number] ROOM/BED: [facility] : 42 AGE: 78 SEX: F ATTEND: Chele Bass MD ADM AUTHOR: Vasquez Noel DO R2 * ALL edits or amendments must be made on the electronic/computer document * General Information Date of admission: Observation Start Date: Date of admission: 09/25/18 Date of discharge: 10/01/18 Admission diagnosis: R. LE hematoma Mechanical Fall Hx of DVT Hx of PE Anemia Htn GERD COPD/Asthma HLD Discharge diagnosis: R. LE hematoma Mechanical Fall Hx of DVT Hx of PE Anemia Deconditioning Htn GERD COPD/Asthma HLD Hospital course: Patient is a 78 yo F on Xarelto for a hx of DVT/PE, presented to [facility] ED chief Complaint of a hematoma second to a mechanical fall. On 09/23/18 the patient was working in her yard and tripped over a tree root and hit her head on the side of her house. She was evaluated at that time with a CT scan on her head and C- spine and a Knee and Ankle Xray that was negative for acute disease. The patient returned to the hospital on 09/25/18 due to an increasing hematome to her R. LE. Trauma/Orthopedic surgery was consulted on admission. CT scan of her R LE at this time showed a large hematoma. The patient underwent surgical evacuation and excisional debridement of skin and subcuaneous ligation of saphenous vein and branches by Dr. Taylor on 09/25/18 and futher surgical washout and evaluation on 09/27/18. The patient tolerated her procedures without complication save for some jaw pain. Her home Xarelto was held due to her active bleeding and the patient was made aware of the increased clotting risk due to her history of DVT and PE. The patient recieved 4 untis of blood and 2 units of FFP due to her wound. Wound care was consulted for management of her wound vac. PT worked with the patient due to deconditioning. Case managment was consulted for SNF placement. When arrangements had been made the patient was discharged to her SNF. The patient was instructed to follow up with her pcp in one week to decide when her anticoagulation should be restarted. She was instructed to follow up with her surgeon in 3-4 weeks. Consultants: orthopedics Pt. condition on discharge: improved, stable Med Rec Med Rec Discharge meds: Stop taking the following medications: [PAPAYA ENZYME] 4 TABS CAP.CHEW MAG CARB/AL HYDROX (GAVISCON 358-95 MG/15ML) 355 ML ORAL.SUSP ORAL EVERY 12 HOURS. APIXABAN (ELIQUIS) 5 MG TAB ORAL DIRECTED. Qty = [address] (PROTONIX) 40 MG TAB.DR ORAL DAILY. Qty = 30 RIVAROXABAN (XARELTO) 20 MG TAB ORAL DAILY. Continue taking these medications: POTASSIUM CHLORIDE ER (KLOR-CON M20) 20 MEQ TAB.SR 20 MILLIEQUIVALENT ORAL DAILY AT 1800. amLODIPine (NORVASC) 10 MG TAB 10 MILLIGRAM ORAL DAILY AT 1800. FUROSEMIDE (LASIX) 20 MG TAB 20 MILLIGRAM ORAL DAILY AT 1800. predniSONE (predniSONE) 1 MG TAB 3 MILLIGRAM ORAL DAILY. VALSARTAN (DIOVAN) 320 MG TAB 320 MILLIGRAM ORAL DAILY. ALLOPURINOL (ZYLOPRIM) 300 MG TAB 300 MILLIGRAM ORAL DAILY. HYDROcodone/APAP (NORCO 10/325) 1 TAB TAB 1 TABLET ORAL THREE TIMES A DAY. as needed for PAIN METOPROLOL SUCC XL (TOPROL XL) 100 MG TAB.SA 100 MILLIGRAM ORAL DAILY. LEVOTHYROXINE (LEVOTHROID) 100 MCG TAB 100 MICROGRAM ORAL DAILY. at 1231 at 0907 RPT #:[id number] END OF REPORT [facility] 2018-09-30 07:18:00 [facility] ([facility]) Hospitalist Progress Note REPORT#:[id number] REPORT STATUS: Signed DATE:09/30/18 TIME: 717 PATIENT: GABBIE CASTANEDA UNIT #: [id number] ROOM/BED: Y314-1 : 42 AGE: 78 SEX: F ATTEND: Chele Bass MD ADM AUTHOR: Vasquez Noel DO R2 * ALL edits or amendments must be made on the electronic/computer document * Subjective Chief Complaint: R LE Hematoma HPI: Patient seen and examined. Reports no issues. Review of Systems Constitutional: Reports: fatigue. Denies: chills, fever. Skin: Reports: swelling. Denies: rash. Eyes: Denies: visual loss/blurred, eye pain. Respiratory: Denies: SOB, wheezing. Cardiovascular: Reports: edema. Denies: chest pain. GI: Denies: constipation, diarrhea, nausea, vomiting. : Denies: dysuria, flank pain. Musculoskeletal: Reports: extremity swelling. Denies: extremity pain. Neuro: Denies: seizure, syncope. Objective General VS/I O: Vital Signs: Date Time Temp Pulse Resp B/P B/P Pulse O2 O2 Flow FiO2 Mean Ox Delivery Rate 09/30 0502 97.7 61 18 134/71 92.2 94 Room air 09/30 0010 97.9 62 18 135/70 91.6 95 Room air 09/29 2020 98.1 60 17 143/72 95.8 95 Room air 09/29 1559 98.6 61 14 136/62 86.7 90 Room air 09/29 1509 67 16 101/50 66.7 94 09/29 1146 97.5 61 15 131/77 95.2 95 Room air 09/29 08 98.2 73 15 132/64 86.7 99 Room air 09/29 08 98.2 73 15 132/64 86.7 99 Room air 09/29 812 98.2 73 15 132/64 86.7 99 Room air 24 hour I O ending at 0700: 09/30 0700 09/29 1900 Intake Total 700.00 800.00 Output Total 2500 1850 Balance -1800.00 -1050.00 Intake, IV 600.00 600.00 Intake, Oral 100 200 Number 1 Bowel Movements Number Voids 5 2 Output, 50 Drainage Output, Urine 2500 1800 Medications: Active Meds + DC'd Last 24 Hrs Furosemide 40 MG ONCE ONE IV (DC) Heparin Sodium 5,000 UNIT Q8HR SUBQ Allopurinol 300 MG DAILY PO Amlodipine Besylate 10 MG DAILY PO Furosemide 20 MG DAILY PO Metoprolol Succinate 100 MG DAILY PO Potassium Chloride 20 MEQ DAILY PO Prednisone 3 MG DAILY PO Valsartan 320 MG DAILY PO Levothyroxine Sodium 100 MCG DAILY@0600 PO Famotidine 20 MG DAILY PO Sodium Chloride 2-3 ML Q12HR IV Acetaminophen 500 MG Q4H PRN PRN PO Morphine Sulfate 2 MG Q4H PRN PRN IV Tramadol HCl 50 MG Q4H PRN PRN PO Ondansetron HCl 4 MG Q8H PRN PRN IV Hydralazine HCl 10 MG Q6H PRN PRN IV Sodium Chloride 1,000 ML .Q20H IV (DC) Physical Exam General appearance: alert, awake, oriented Head/Eyes: atraumatic, normocephalic ENT: moist mucosal membranes Neck: no masses or swelling Cardiovascular: normal heart sounds, regular rate rhythm Respiratory: aerating well, symmetric expansion Abdomen: non-tender, soft Extremities: moves all, R LE Bandaged, L LE with 2+ edema Musculoskeletal: normal inspection 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, 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 X 3 Results Findings/Data: Laboratory Tests 09/30 0231 Chemistry Sodium (133 - 145 MMOL/L) 141 Potassium (3.6 - 5.2 MMOL/L) 4.4 Chloride (100 - 108 MMOL/L) 109 H Carbon Dioxide (22 - 32 MMOL/L) 31 BUN (6 - 20 MG/DL) 29 H Creatinine (0.60 - 1.00 MG/DL) 1.01 H Estimated GFR (MDRD) (39 - 90) 53 Glucose (65 - 99 MG/DL) 92 Calcium (8.7 - 10.5 MG/DL) 8.6 L Magnesium (1.8 - 2.4 MG/DL) 2.1 Total Bilirubin (0.0 - 1.0 MG/DL) 0.3 AST (15 - 37 Units/L) 18 ALT (30 - 65 Units/L) 12 L Alkaline Phosphatase (50 - 136 Units/L) 84 Total Protein (6.4 - 8.2 G/DL) 5.5 L Albumin (3.4 - 5.0 G/DL) 2.3 L Globulin (1.5 - 3.8 G/DL) 3.2 Albumin/Globulin Ratio (1.1 - 2.2) 0.7 L Laboratory Tests 09/30 0231 Hematology WBC (4.80 - 10.80 x10 3/uL) 7.29 RBC (4.2 - 5.4 x10 6/uL) 2.91 L Hgb (12.0 - 16.0 G/DL) 8.6 L Hct (37 - 47 %) 27.4 L MCV (81 - 99 FL) 94.2 MCH (27 - 31 PG) 29.6 MCHC (33 - 37 G/DL) 31.4 L RDW Coeff of Skylar (11.5 - 14.5 %) 14.6 H Plt Count (150 - 450 x10 3/uL) 235 MPV (7.4 - 10.4 FL) 10.4 Neut % (Auto) (42 - 86 %) 69.8 Lymph % (Auto) (24 - 44 %) 15.8 L [place] % (Auto) (0.0 - 4.0 %) 11.8 H Eos % (Auto) (0.0 - 2.7 %) 1.5 Baso % (Auto) (0.0 - 0.5 %) 0.1 Eos # (Auto) (0.0 - 0.5 x10 3/uL) 0.11 Baso # (Auto) (0.0 - 0.2 x10 3/uL) 0.01 Abs Immat Gran (auto) (0.00 - 0.03 x10 3/uL) 0.07 H Absolute Neuts (auto) (1.8 - 7.7 x10 3/uL) 5.09 Absolute Lymphs (auto) (1.0 - 4.8 x10 3/uL) 1.15 Absolute Monos (auto) (0.0 - 0.8 x10 3/uL) 0.86 H Absolute Nucleated RBC (0.0 - 0.2 X10 3/uL) 0.0 Immature Gran % (0.0 - 2.0 %) 1.0 Nucleated RBC % (0.0 - 0.0 %) 0.3 H Diagnosis, Assessment Plan Free Text DxA P Notes Free text DxA P notes: R LE Hematoma -Surgery Consulted, thank you for your time and recs -sp Surgical Evacuation on 09/25 and 09/27 -No plans for further Surgical intervention -CM for wound vac and home health with 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 Acute Blood loss anemia -second to hematoma -monitor hgb -Will transfuse another unit today due to active bleed Htn - home meds -Prn hydralazine COPD/Asthma -PO Prednisone- home medication HLD Dvt ppx: scds, holding Xarelto Dispo: Monitor Hgb, holding Xarelto for at least a week while she heals, discussed with Attending/pcp and patient, CM for SNF placement - Conditional DC for tomorrow at 1623 RPT #:[id number] END OF REPORT [facility] 2018-09-30 07:18:00 [facility] ([facility]) Hospitalist Progress Note REPORT#:[id number] REPORT STATUS: Signed DATE:09/30/18 TIME: 717 PATIENT: GABBIE CASTANEDA UNIT #: [id number] ROOM/BED: Y314-1 : 42 AGE: 78 SEX: F ATTEND: Chele Bass MD ADM AUTHOR: Vasquez Noel DO R2 * ALL edits or amendments must be made on the electronic/computer document * Subjective Chief Complaint: R LE Hematoma HPI: Patient seen and examined. Reports no issues. Review of Systems Constitutional: Reports: fatigue. Denies: chills, fever. Skin: Reports: swelling. Denies: rash. Eyes: Denies: visual loss/blurred, eye pain. Respiratory: Denies: SOB, wheezing. Cardiovascular: Reports: edema. Denies: chest pain. GI: Denies: constipation, diarrhea, nausea, vomiting. : Denies: dysuria, flank pain. Musculoskeletal: Reports: extremity swelling. Denies: extremity pain. Neuro: Denies: seizure, syncope. Objective General VS/I O: Vital Signs: Date Time Temp Pulse Resp B/P B/P Pulse O2 O2 Flow FiO2 Mean Ox Delivery Rate 09/30 0502 97.7 61 18 134/71 92.2 94 Room air 09/30 0010 97.9 62 18 135/70 91.6 95 Room air 09/29 2020 98.1 60 17 143/72 95.8 95 Room air 09/29 1559 98.6 61 14 136/62 86.7 90 Room air 09/29 1509 67 16 101/50 66.7 94 09/29 1146 97.5 61 15 131/77 95.2 95 Room air 09/29 0813 98.2 73 15 132/64 86.7 99 Room air 09/29 0813 98.2 73 15 132/64 86.7 99 Room air 09/29 0813 98.2 73 15 132/64 86.7 99 Room air 24 hour I O ending at 0700: 09/30 0700 09/29 1900 Intake Total 700.00 800.00 Output Total 2500 1850 Balance -1800.00 -1050.00 Intake, IV 600.00 600.00 Intake, Oral 100 200 Number 1 Bowel Movements Number Voids 5 2 Output, 50 Drainage Output, Urine 2500 1800 Medications: Active Meds + DC'd Last 24 Hrs Furosemide 40 MG ONCE ONE IV (DC) Heparin Sodium 5,000 UNIT Q8HR SUBQ Allopurinol 300 MG DAILY PO Amlodipine Besylate 10 MG DAILY PO Furosemide 20 MG DAILY PO Metoprolol Succinate 100 MG DAILY PO Potassium Chloride 20 MEQ DAILY PO Prednisone 3 MG DAILY PO Valsartan 320 MG DAILY PO Levothyroxine Sodium 100 MCG DAILY@0600 PO Famotidine 20 MG DAILY PO Sodium Chloride 2-3 ML Q12HR IV Acetaminophen 500 MG Q4H PRN PRN PO Morphine Sulfate 2 MG Q4H PRN PRN IV Tramadol HCl 50 MG Q4H PRN PRN PO Ondansetron HCl 4 MG Q8H PRN PRN IV Hydralazine HCl 10 MG Q6H PRN PRN IV Sodium Chloride 1,000 ML .Q20H IV (DC) Physical Exam General appearance: alert, awake, oriented Head/Eyes: atraumatic, normocephalic ENT: moist mucosal membranes Neck: no masses or swelling Cardiovascular: normal heart sounds, regular rate rhythm Respiratory: aerating well, symmetric expansion Abdomen: non-tender, soft Extremities: moves all, R LE Bandaged, L LE with 2+ edema Musculoskeletal: normal inspection 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, 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 X 3 Results Findings/Data: Laboratory Tests 09/30 230 Chemistry Sodium (133 - 145 MMOL/L) 141 Potassium (3.6 - 5.2 MMOL/L) 4.4 Chloride (100 - 108 MMOL/L) 109 H Carbon Dioxide (22 - 32 MMOL/L) 31 BUN (6 - 20 MG/DL) 29 H Creatinine (0.60 - 1.00 MG/DL) 1.01 H Estimated GFR (MDRD) (39 - 90) 53 Glucose (65 - 99 MG/DL) 92 Calcium (8.7 - 10.5 MG/DL) 8.6 L Magnesium (1.8 - 2.4 MG/DL) 2.1 Total Bilirubin (0.0 - 1.0 MG/DL) 0.3 AST (15 - 37 Units/L) 18 ALT (30 - 65 Units/L) 12 L Alkaline Phosphatase (50 - 136 Units/L) 84 Total Protein (6.4 - 8.2 G/DL) 5.5 L Albumin (3.4 - 5.0 G/DL) 2.3 L Globulin (1.5 - 3.8 G/DL) 3.2 Albumin/Globulin Ratio (1.1 - 2.2) 0.7 L Laboratory Tests 09/30 230 Hematology WBC (4.80 - 10.80 x10 3/uL) 7.29 RBC (4.2 - 5.4 x10 6/uL) 2.91 L Hgb (12.0 - 16.0 G/DL) 8.6 L Hct (37 - 47 %) 27.4 L MCV (81 - 99 FL) 94.2 MCH (27 - 31 PG) 29.6 MCHC (33 - 37 G/DL) 31.4 L RDW Coeff of Skylar (11.5 - 14.5 %) 14.6 H Plt Count (150 - 450 x10 3/uL) 235 MPV (7.4 - 10.4 FL) 10.4 Neut % (Auto) (42 - 86 %) 69.8 Lymph % (Auto) (24 - 44 %) 15.8 L [place] % (Auto) (0.0 - 4.0 %) 11.8 H Eos % (Auto) (0.0 - 2.7 %) 1.5 Baso % (Auto) (0.0 - 0.5 %) 0.1 Eos # (Auto) (0.0 - 0.5 x10 3/uL) 0.11 Baso # (Auto) (0.0 - 0.2 x10 3/uL) 0.01 Abs Immat Gran (auto) (0.00 - 0.03 x10 3/uL) 0.07 H Absolute Neuts (auto) (1.8 - 7.7 x10 3/uL) 5.09 Absolute Lymphs (auto) (1.0 - 4.8 x10 3/uL) 1.15 Absolute Monos (auto) (0.0 - 0.8 x10 3/uL) 0.86 H Absolute Nucleated RBC (0.0 - 0.2 X10 3/uL) 0.0 Immature Gran % (0.0 - 2.0 %) 1.0 Nucleated RBC % (0.0 - 0.0 %) 0.3 H Diagnosis, Assessment Plan Free Text DxA P Notes Free text DxA P notes: R LE Hematoma -Surgery Consulted, thank you for your time and recs -sp Surgical Evacuation on 09/25 and 09/27 -No plans for further Surgical intervention -CM for wound vac and home health with 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 Acute Blood loss anemia -second to hematoma -monitor hgb -Will transfuse another unit today due to active bleed Htn - home meds -Prn hydralazine COPD/Asthma -PO Prednisone- home medication HLD Dvt ppx: scds, holding Xarelto Dispo: Monitor Hgb, holding Xarelto for at least a week while she heals, discussed with Attending/pcp and patient, CM for SNF placement - Conditional DC for tomorrow at 1623 at 0907 [facility] #:[id number] END OF REPORT [facility] 2018-09-29 06:00:00 [facility] ([facility]) Hospitalist Progress Note REPORT#:[id number] REPORT STATUS: Signed DATE:09/29/18 TIME: 0600 PATIENT: GABBIE CASTANEDA UNIT #: [id number] ROOM/BED: Y314-1 : 42 AGE: 78 SEX: F ATTEND: Chele Bass MD ADM AUTHOR: Vasquez Noel DO R2 * ALL edits or amendments must be made on the electronic/computer document * Subjective Chief Complaint: R LE Hematoma HPI: Patient seen and examined, She reports her pain is under control. She is working with PT and will have her wound vac changed sometime today. She is pending placement to SNF. Review of Systems Constitutional: Reports: fatigue. Denies: chills, fever. Skin: Reports: swelling. Denies: rash. Eyes: Denies: visual loss/blurred, eye pain. Respiratory: Denies: SOB, wheezing. Cardiovascular: Reports: edema. Denies: chest pain. GI: Denies: constipation, diarrhea, nausea, vomiting. : Denies: dysuria, flank pain. Musculoskeletal: Reports: extremity swelling. Denies: extremity pain. Neuro: Denies: seizure, syncope. Objective General VS/I O: Vital Signs: Date Time Temp Pulse Resp B/P B/P Pulse O2 O2 Flow FiO2 Mean Ox Delivery Rate 09/29 0428 97.9 65 18 143/77 99.4 94 Room air 09/29 0201 98.4 65 18 148/66 93.4 96 Room air 09/29 0158 66 148/66 93.4 09/29 0143 64 149/69 95.4 94 09/29 0128 70 135/68 90.6 96 09/29 0113 66 135/65 88.1 95 09/29 0058 67 147/67 93.9 94 09/29 0043 67 133/59 84.0 97 04/11 0028 66 148/71 96.6 94 04/11 0013 69 135/62 86.5 96 04/10 2358 69 149/71 96.8 96 04/10 2343 98.4 67 18 146/79 101.1 96 Room air 04/10 2327 98.4 63 18 153/68 96.6 97 Room air 04/10 2314 66 18 150/74 99.4 99 04/10 2313 99.1 66 18 150/74 99.4 98 04/10 2258 70 152/73 99.4 97 04/10 2243 66 126/69 87.7 97 04/10 2228 65 135/77 96.5 98 04/10 2213 69 141/79 100.0 98 04/10 2158 67 135/77 96.7 98 04/10 2143 72 136/76 95.6 98 04/10 2128 98.6 76 18 140/67 91.6 98 Room air 04/10 2113 98.6 68 18 132/70 90.4 98 Room air 04/10 2112 98.6 68 18 133/68 89.4 99 04/10 2112 98.6 68 18 133/68 89.4 99 04/10 2043 97.9 70 18 143/71 94.9 96 Room air /10 1640 98.1 73 17 136/63 87.4 97 Room air 04/10 1432 98.4 72 17 122/62 82.1 96 04/10 1432 98.4 72 17 122/62 82.1 96 04/10 1145 98.1 87 18 130/59 82.4 98 Room air /10 1145 98.1 87 18 130/59 82.4 98 Room air /10 0817 97.9 75 16 116/55 75.5 96 Room air /10 0744 97.9 76 17 147/64 91.8 94 04/10 0744 97.9 76 17 147/64 91.8 94 /10 0713 91 Room air 21 24 hour I O ending at 0700: 09/29 0700 09/28 1900 Intake Total 430 600.00 Output Total 100 Balance 430 500.00 Intake, IV 80 600.00 Intake, 350 Packed Cells Number 1 Bowel Movements Number Voids 3 Output, 100 Drainage Patient 112.945 kg Weight Medications: Active Meds + DC'd Last 24 Hrs Heparin Sodium 5,000 UNIT Q8HR SUBQ Allopurinol 300 MG DAILY PO Amlodipine Besylate 10 MG DAILY PO Furosemide 20 MG DAILY PO Metoprolol Succinate 100 MG DAILY PO Potassium Chloride 20 MEQ DAILY PO Prednisone 3 MG DAILY PO Valsartan 320 MG DAILY PO Levothyroxine Sodium 100 MCG DAILY@0600 PO Famotidine 20 MG DAILY PO Sodium Chloride 2-3 ML Q12HR IV Acetaminophen 500 MG Q4H PRN PRN PO Morphine Sulfate 2 MG Q4H PRN PRN IV Tramadol HCl 50 MG Q4H PRN PRN PO Ondansetron HCl 4 MG Q8H PRN PRN IV Hydralazine HCl 10 MG Q6H PRN PRN IV Sodium Chloride 1,000 ML .Q20H IV Physical Exam General appearance: frail, alert, awake, oriented Head/Eyes: atraumatic, normocephalic ENT: moist mucosal membranes Neck: no masses or swelling Cardiovascular: normal heart sounds, regular rate rhythm Respiratory: aerating well, symmetric expansion Abdomen: non-tender, soft Extremities: moves all, R LE Bandaged, L LE with 2+ edema Musculoskeletal: normal inspection 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, 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 X 3 Results Findings/Data: Laboratory Tests 09/28 0805 Chemistry Sodium (133 - 145 MMOL/L) 142 Potassium (3.6 - 5.2 MMOL/L) 4.6 Chloride (100 - 108 MMOL/L) 107 Carbon Dioxide (22 - 32 MMOL/L) 27 BUN (6 - 20 MG/DL) 26 H Creatinine (0.60 - 1.00 MG/DL) 0.92 Estimated GFR (MDRD) (39 - 90) 59 Glucose (65 - 99 MG/DL) 136 H Calcium (8.7 - 10.5 MG/DL) 9.0 Magnesium (1.8 - 2.4 MG/DL) 2.2 Total Bilirubin (0.0 - 1.0 MG/DL) 0.3 AST (15 - 37 Units/L) 15 ALT (30 - 65 Units/L) 13 L Alkaline Phosphatase (50 - 136 Units/L) 91 Total Protein (6.4 - 8.2 G/DL) 5.6 L Albumin (3.4 - 5.0 G/DL) 2.3 L Globulin (1.5 - 3.8 G/DL) 3.3 Albumin/Globulin Ratio (1.1 - 2.2) 0.7 L Laboratory Tests 09/28 08 Coagulation PT (9.6 - 12.3 SECONDS) 11.7 INR 1.03 Laboratory Tests 09/28 0805 Hematology WBC (4.80 - 10.80 x10 3/uL) 8.91 RBC (4.2 - 5.4 x10 6/uL) 2.66 L Hgb (12.0 - 16.0 G/DL) 8.0 L Hct (37 - 47 %) 24.8 L MCV (81 - 99 FL) 93.2 MCH (27 - 31 PG) 30.1 MCHC (33 - 37 G/DL) 32.3 L RDW Coeff of Skylar (11.5 - 14.5 %) 14.3 Plt Count (150 - 450 x10 3/uL) 195 MPV (7.4 - 10.4 FL) 10.9 H Neut % (Auto) (42 - 86 %) 87.5 H Lymph % (Auto) (24 - 44 %) 6.5 L [place] % (Auto) (0.0 - 4.0 %) 5.2 H Eos % (Auto) (0.0 - 2.7 %) 0.0 Baso % (Auto) (0.0 - 0.5 %) 0.1 Eos # (Auto) (0.0 - 0.5 x10 3/uL) 0.00 Baso # (Auto) (0.0 - 0.2 x10 3/uL) 0.01 Abs Immat Gran (auto) (0.00 - 0.03 x10 3/uL) 0.06 H Absolute Neuts (auto) (1.8 - 7.7 x10 3/uL) 7.80 H Absolute Lymphs (auto) (1.0 - 4.8 x10 3/uL) 0.58 L Absolute Monos (auto) (0.0 - 0.8 x10 3/uL) 0.46 Absolute Nucleated RBC (0.0 - 0.2 X10 3/uL) 0.0 Immature Gran % (0.0 - 2.0 %) 0.7 Nucleated RBC % (0.0 - 0.0 %) 0.0 Diagnosis, Assessment Plan Free Text DxA P Notes Free text DxA P notes: R LE Hematoma -Surgery Consulted, thank you for your time and recs -sp Surgical Evacuation on 09/25 and 09/27 -No plans for further Surgical intervention -CM for wound vac and home health with 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 Acute Blood loss anemia -second to hematoma -monitor hgb Htn - home meds -Prn hydralazine COPD/Asthma -PO Prednisone- home medication HLD Dvt ppx: scds, holding Xarelto Dispo: Monitor Hgb, holding Xarelto for at least a week while she heals, discussed with Attending/pcp and patient, CM for SNF placement at 2000 RPT #:[id number] END OF REPORT [facility] 2018-09-29 06:00:00 [facility] ([facility]) Hospitalist Progress Note REPORT#:[id number] REPORT STATUS: Signed DATE:09/29/18 TIME: 0600 PATIENT: GABBIE CASTANEDA LITZY UNIT #: [id number] ROOM/BED: Y4-1 : 42 AGE: 78 SEX: F ATTEND: Chele Bass MD ADM AUTHOR: Vasquez Noel DO R2 * ALL edits or amendments must be made on the electronic/computer document * Subjective Chief Complaint: R LE Hematoma HPI: Patient seen and examined, She reports her pain is under control. She is working with PT and will have her wound vac changed sometime today. She is pending placement to SNF. Review of Systems Constitutional: Reports: fatigue. Denies: chills, fever. Skin: Reports: swelling. Denies: rash. Eyes: Denies: visual loss/blurred, eye pain. Respiratory: Denies: SOB, wheezing. Cardiovascular: Reports: edema. Denies: chest pain. GI: Denies: constipation, diarrhea, nausea, vomiting. : Denies: dysuria, flank pain. Musculoskeletal: Reports: extremity swelling. Denies: extremity pain. Neuro: Denies: seizure, syncope. Objective General VS/I O: Vital Signs: Date Time Temp Pulse Resp B/P B/P Pulse O2 O2 Flow FiO2 Mean Ox Delivery Rate 09/29 0428 97.9 65 18 143/77 99.4 94 Room air 04/11 0201 98.4 65 18 148/66 93.4 96 Room air 04/11 0158 66 148/66 93.4 04/11 0143 64 149/69 95.4 94 04/11 0128 70 135/68 90.6 96 04/11 0113 66 135/65 88.1 95 04/11 0058 67 147/67 93.9 94 04/11 0043 67 133/59 84.0 97 04/11 0028 66 148/71 96.6 94 04/11 0013 69 135/62 86.5 96 04/10 2358 69 149/71 96.8 96 04/10 2343 98.4 67 18 146/79 101.1 96 Room air 04/10 2327 98.4 63 18 153/68 96.6 97 Room air 04/10 2314 66 18 150/74 99.4 99 04/10 2313 99.1 66 18 150/74 99.4 98 04/10 2258 70 152/73 99.4 97 04/10 2243 66 126/69 87.7 97 04/10 2228 65 135/77 96.5 98 04/10 2213 69 141/79 100.0 98 04/10 2158 67 135/77 96.7 98 04/10 2143 72 136/76 95.6 98 04/10 2128 98.6 76 18 140/67 91.6 98 Room air 04/10 2113 98.6 68 18 132/70 90.4 98 Room air 04/10 2112 98.6 68 18 133/68 89.4 99 04/10 2112 98.6 68 18 133/68 89.4 99 04/10 2043 97.9 70 18 143/71 94.9 96 Room air 04/10 1640 98.1 73 17 136/63 87.4 97 Room air 04/10 1432 98.4 72 17 122/62 82.1 96 04/10 1432 98.4 72 17 122/62 82.1 96 04/10 1145 98.1 87 18 130/59 82.4 98 Room air 04/10 1145 98.1 87 18 130/59 82.4 98 Room air 04/10 0817 97.9 75 16 116/55 75.5 96 Room air 04/10 0744 97.9 76 17 147/64 91.8 94 09/28 0744 97.9 76 17 147/64 91.8 94 09/28 0713 91 Room air 21 24 hour I O ending at 0700: 09/29 0700 09/28 1900 Intake Total 430 600.00 Output Total 100 Balance 430 500.00 Intake, IV 80 600.00 Intake, 350 Packed Cells Number 1 Bowel Movements Number Voids 3 Output, 100 Drainage Patient 112.945 kg Weight Medications: Active Meds + DC'd Last 24 Hrs Heparin Sodium 5,000 UNIT Q8HR SUBQ Allopurinol 300 MG DAILY PO Amlodipine Besylate 10 MG DAILY PO Furosemide 20 MG DAILY PO Metoprolol Succinate 100 MG DAILY PO Potassium Chloride 20 MEQ DAILY PO Prednisone 3 MG DAILY PO Valsartan 320 MG DAILY PO Levothyroxine Sodium 100 MCG DAILY@0600 PO Famotidine 20 MG DAILY PO Sodium Chloride 2-3 ML Q12HR IV Acetaminophen 500 MG Q4H PRN PRN PO Morphine Sulfate 2 MG Q4H PRN PRN IV Tramadol HCl 50 MG Q4H PRN PRN PO Ondansetron HCl 4 MG Q8H PRN PRN IV Hydralazine HCl 10 MG Q6H PRN PRN IV Sodium Chloride 1,000 ML .Q20H IV Physical Exam General appearance: frail, alert, awake, oriented Head/Eyes: atraumatic, normocephalic ENT: moist mucosal membranes Neck: no masses or swelling Cardiovascular: normal heart sounds, regular rate rhythm Respiratory: aerating well, symmetric expansion Abdomen: non-tender, soft Extremities: moves all, R LE Bandaged, L LE with 2+ edema Musculoskeletal: normal inspection 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, 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8 G/DL) 3.3 Albumin/Globulin Ratio (1.1 - 2.2) 0.7 L Laboratory Tests 09/28 804 Coagulation PT (9.6 - 12.3 SECONDS) 11.7 INR 1.03 Laboratory Tests 09/28 804 Hematology WBC (4.80 - 10.80 x10 3/uL) 8.91 RBC (4.2 - 5.4 x10 6/uL) 2.66 L Hgb (12.0 - 16.0 G/DL) 8.0 L Hct (37 - 47 %) 24.8 L MCV (81 - 99 FL) 93.2 MCH (27 - 31 PG) 30.1 MCHC (33 - 37 G/DL) 32.3 L RDW Coeff of Skylar (11.5 - 14.5 %) 14.3 Plt Count (150 - 450 x10 3/uL) 195 MPV (7.4 - 10.4 FL) 10.9 H Neut % (Auto) (42 - 86 %) 87.5 H Lymph % (Auto) (24 - 44 %) 6.5 L [place] % (Auto) (0.0 - 4.0 %) 5.2 H Eos % (Auto) (0.0 - 2.7 %) 0.0 Baso % (Auto) (0.0 - 0.5 %) 0.1 Eos # (Auto) (0.0 - 0.5 x10 3/uL) 0.00 Baso # (Auto) (0.0 - 0.2 x10 3/uL) 0.01 Abs Immat Gran (auto) (0.00 - 0.03 x10 3/uL) 0.06 H Absolute Neuts (auto) (1.8 - 7.7 x10 3/uL) 7.80 H Absolute Lymphs (auto) (1.0 - 4.8 x10 3/uL) 0.58 L Absolute Monos (auto) (0.0 - 0.8 x10 3/uL) 0.46 Absolute Nucleated RBC (0.0 - 0.2 X10 3/uL) 0.0 Immature Gran % (0.0 - 2.0 %) 0.7 Nucleated RBC % (0.0 - 0.0 %) 0.0 Diagnosis, Assessment Plan Free Text DxA P Notes Free text DxA P notes: R LE Hematoma -Surgery Consulted, thank you for your time and recs -sp Surgical Evacuation on 09/25 and 09/27 -No plans for further Surgical intervention -CM for wound vac and home health with 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 Acute Blood loss anemia -second to hematoma -monitor hgb Htn - home meds -Prn hydralazine COPD/Asthma -PO Prednisone- home medication HLD Dvt ppx: scds, holding Xarelto Dispo: Monitor Hgb, holding Xarelto for at least a week while she heals, discussed with Attending/pcp and patient, CM for SNF placement at 2001 at 0907 RPT #:[id number] END OF REPORT [facility] 2018-09-28 07:16:00 [facility] ([facility]) Hospitalist Progress Note REPORT#:[id number] REPORT STATUS: Signed DATE:09/28/18 TIME: 715 PATIENT: GABBIE CASTANEDA UNIT #: [id number] ROOM/BED: Y314-1 : 42 AGE: 78 SEX: F ATTEND: Chele Bass MD ADM AUTHOR: Vasquez Noel DO R2 * ALL edits or amendments must be made on the electronic/computer document * Subjective Chief Complaint: R LE Hematoma HPI: Patient is doing well, pain is controlled. She has a wound vac attached to her R LE. Review of Systems Constitutional: Reports: fatigue. Denies: chills, fever. Skin: Reports: swelling. Denies: rash. Eyes: Denies: visual loss/blurred, eye pain. Respiratory: Denies: SOB, wheezing. Cardiovascular: Reports: edema. Denies: chest pain. GI: Denies: constipation, diarrhea, nausea, vomiting. : Denies: dysuria, flank pain. Musculoskeletal: Reports: extremity swelling. Denies: extremity pain. Neuro: Denies: seizure, syncope. Objective General VS/I O: Vital Signs: Date Time Temp Pulse Resp B/P B/P Pulse O2 O2 Flow FiO2 Mean Ox Delivery Rate 09/28 1432 98.4 72 17 122/62 82.1 96 09/28 1145 98.1 87 18 130/59 82.4 98 Room air 09/28 0817 97.9 75 16 116/55 75.5 96 Room air 09/28 0744 97.9 76 17 147/64 91.8 94 09/28 0713 91 Room air 21 09/28 0433 98.1 75 19 127/73 90.8 96 Room air 09/28 0433 98.1 75 19 127/73 90.8 96 Room air 09/28 0230 98 Nasal [id number] cannula 09/28 0028 98.2 71 19 120/69 85.8 98 Nasal cannula 09/28 0028 98.2 71 19 120/69 85.8 98 Nasal cannula 09/27 2218 Nasal [id number] cannula 09/27 2047 97.7 71 19 111/56 74.5 97 Nasal cannula 09/27 2047 97.7 71 19 111/56 74.5 97 Nasal cannula 09/27 1659 97.9 75 18 104/58 73.3 99 Nasal cannula 24 hour I O ending at 0700: 09/28 0700 09/27 1900 Intake Total 1058.00 Output Total 100 Balance 958.00 Intake, IV 708.00 Intake, 350 Packed Cells Number 1 Bowel Movements Number Voids 2 Output, 100 Drainage Physical Exam General appearance: alert, awake, oriented Head/Eyes: atraumatic, normocephalic ENT: moist mucosal membranes Neck: no masses or swelling Cardiovascular: normal heart sounds, regular rate rhythm Respiratory: aerating well, symmetric expansion Abdomen: non-tender, soft Extremities: moves all, R LE Bandaged, L LE with 2+ edema Musculoskeletal: normal inspection 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, 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 X 3 Diagnosis, Assessment Plan Free Text DxA P Notes Free text DxA P notes: R LE Hematoma -Surgery Consulted, thank you for your time and recs -sp Surgical Evacuation on 09/25 and 09/27 -Will have further Surgical intervention today -CM for wound vac and home health with PT -will transfuse another unit of blood due to actively bleeding 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 Acute Blood loss anemia -second to hematoma -transfuse for hgb <7 -> will transfuse one unit given active bleeding Htn - home meds -Prn hydralazine COPD/Asthma -PO Prednisone- home medication HLD Dvt ppx: scds, holding Xarelto Dispo: Monitor Hgb, holding Xarelto for at least a week, discussed with Attending/pcp, CM for SNF placement at 1621 RPT #:[id number] END OF REPORT [facility] 2018-09-28 07:16:00 [facility] ([facility]) Hospitalist Progress Note REPORT#:[id number] REPORT STATUS: Signed DATE:09/28/18 TIME: 715 PATIENT: GABBIE CASTANEDA UNIT #: [id number] ROOM/BED: Y314-1 : 42 AGE: 78 SEX: F ATTEND: Chele Bass MD ADM AUTHOR: Vasquez Noel DO R2 * ALL edits or amendments must be made on the electronic/computer document * Subjective Chief Complaint: R LE Hematoma HPI: Patient is doing well, pain is controlled. She has a wound vac attached to her R LE. Review of Systems Constitutional: Reports: fatigue. Denies: chills, fever. Skin: Reports: swelling. Denies: rash. Eyes: Denies: visual loss/blurred, eye pain. Respiratory: Denies: SOB, wheezing. Cardiovascular: Reports: edema. Denies: chest pain. GI: Denies: constipation, diarrhea, nausea, vomiting. : Denies: dysuria, flank pain. Musculoskeletal: Reports: extremity swelling. Denies: extremity pain. Neuro: Denies: seizure, syncope. Objective General VS/I O: Vital Signs: Date Time Temp Pulse Resp B/P B/P Pulse O2 O2 Flow FiO2 Mean Ox Delivery Rate 09/28 1432 98.4 72 17 122/62 82.1 96 09/28 1145 98.1 87 18 130/59 82.4 98 Room air 09/28 0817 97.9 75 16 116/55 75.5 96 Room air 09/28 0744 97.9 76 17 147/64 91.8 94 09/28 0713 91 Room air 21 09/28 0433 98.1 75 19 127/73 90.8 96 Room air 09/28 0433 98.1 75 19 127/73 90.8 96 Room air 09/28 0230 98 Nasal [id number] cannula 09/28 0028 98.2 71 19 120/69 85.8 98 Nasal cannula 09/28 0028 98.2 71 19 120/69 85.8 98 Nasal cannula 09/27 2218 Nasal [id number] cannula 09/27 204 97.7 71 19 111/56 74.5 97 Nasal cannula 09/27 204 97.7 71 19 111/56 74.5 97 Nasal cannula 09/27 1659 97.9 75 18 104/58 73.3 99 Nasal cannula 24 hour I O ending at 0700: 09/28 0700 09/27 1900 Intake Total 1058.00 Output Total 100 Balance 958.00 Intake, IV 708.00 Intake, 350 Packed Cells Number 1 Bowel Movements Number Voids 2 Output, 100 Drainage Physical Exam General appearance: alert, awake, oriented Head/Eyes: atraumatic, normocephalic ENT: moist mucosal membranes Neck: no masses or swelling Cardiovascular: normal heart sounds, regular rate rhythm Respiratory: aerating well, symmetric expansion Abdomen: non-tender, soft Extremities: moves all, R LE Bandaged, L LE with 2+ edema Musculoskeletal: normal inspection 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, oriented X 3 Diagnosis, Assessment Plan Free Text DxA P Notes Free text DxA P notes: R LE Hematoma -Surgery Consulted, thank you for your time and recs -sp Surgical Evacuation on 09/25 and 09/27 -Will have further Surgical intervention today - for wound vac and home health with PT -will transfuse another unit of blood due to actively bleeding 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 Acute Blood loss anemia -second to hematoma -transfuse for hgb <7 -> will transfuse one unit given active bleeding Htn - home meds -Prn hydralazine COPD/Asthma -PO Prednisone- home medication HLD Dvt ppx: scds, holding Xarelto Dispo: Monitor Hgb, holding Xarelto for at least a week, discussed with Attending/pcp, CM for SNF placement at 1621 at 1339 RPT #:[id number] END OF REPORT [facility] 2018-09-27 10:33:00 [facility] ([facility]) DT Operative Note REPORT#:[id number] REPORT STATUS: Signed DATE:09/27/18 TIME: 1033 PATIENT: GABBIE CASTANEDA UNIT #: [id number] ROOM/BED: Y314-1 : 42 AGE: 78 SEX: F ATTEND: Chele Bass MD ADM AUTHOR: Marlene Taylor MD * ALL edits or amendments must be made on the electronic/computer document * Operative Report Operative Note Note: DATE: 09/27/2018 PREOPERATIVE DIAGNOSIS: Right medial calf wound (25 x 13 x 5 cm) POSTOPERATIVE DIAGNOSIS: Same PROCEDURE PERFORMED: 1. Washout right medial calf wound 2. Negative pressure therapy application 200 cm2 SURGEON: Marlene Taylor M.D. PROPELLER LAYOUT WORKER: Deangelo Rebolledo ANESTHESIA: Per anesthesia. FLUIDS: Per anesthesia FINDINGS: Hemostatic right medial calf wond (25 x 13 x 5 cm) with healthy viable tissue INDICATIONS: A 78-year-old female on Xarelto was atraumatic expanding right lower extremity hematoma with overlying skin necrosis. The risks, benefits, and alternative of the procedure were explained to the patient and she elected to proceed. PROCEDURE IN DETAIL: The patient was properly identified in the preoperative area. Informed consent was obtained from the patient after explaining all of the risks, benefits and alternatives to the procedure which the patient appeared to understand and so stated. The patient was taken to the operating room where she was placed under general anesthesia. Her right leg was prepped and draped under sterile technique. The wound was evaluated and there were no evidence of necrotic or nonviable tissue. The wound was irrigated with saline and a negative pressure wound closure therapy system was then applied and connected to suction. The patient was awakened from anesthesia and and taken to the recovery room. All counts were correct. The patient tolerated the procedure well. All counts were correct. The patient tolerated the procedure well. at 2226 RPT #:[id number] END OF REPORT [facility] 2018-09-27 10:13:00 [facility] ([facility]) Brief Op Note REPORT#:[id number] REPORT STATUS: Signed DATE:09/27/18 TIME: 1013 PATIENT: GABBIE CASTANEDA UNIT #: [id number] ROOM/BED: [place] [address] : 42 AGE: 78 SEX: F ATTEND: Chele Bass MD ADM AUTHOR: Marlene Taylor MD * ALL edits or amendments must be made on the electronic/computer document * Op/Inv Proc Note - Brief Pre-procedure diagnosis: Right medial calf wound (25 x 13 x 5 cm) Post-procedure diagnosis: same as pre procedure dx Procedures performed: 1. Washout right medial calf wound 2. Negative pressure therapy application 200 cm2 Primary Surgeon: Marlene Taylor Sampler Radioactive Waste(s): Deangelo Rebolledo Findings: Hemostatic right medial calf wond (25 x 13 x 5 cm) with healthy viable tissue Complications: none Estimated blood loss in ml's: none Specimens removed/altered: none Disposition: PACU Assess/Plan Free Text A P: No further surgical plans. Physical therapy will follow patient. Therapeutic anticoagulation (eliquis/xarelto) can be resumed at the discretion of primary service. Call if questions. Patient to follow up with: [facility] [address], [address] PATIENT SHOULD CALL TO MAKE APPOINTMENT IN 3-4 WEEKS at 1028 RPT #:[id number] END OF REPORT [facility] 2018-09-27 06:36:00 [facility] ([facility]) Hospitalist Progress Note REPORT#:[id number] REPORT STATUS: Signed DATE:09/27/18 TIME: 0636 PATIENT: GABBIE CASTANEDA LITZY UNIT #: [id number] ROOM/BED: Y314-1 : 42 AGE: 78 SEX: F ATTEND: Chele Bass MD ADM AUTHOR: Vasquez Noel DO R2 * ALL edits or amendments must be made on the electronic/computer document * Subjective Chief Complaint: R LE Hematoma HPI: Will have surgery today. Review of Systems Constitutional: Reports: fatigue. Denies: chills, fever. Skin: Reports: swelling. Denies: rash. Eyes: Denies: visual loss/blurred, eye pain. Respiratory: Denies: SOB, wheezing. Cardiovascular: Reports: edema. Denies: chest pain. GI: Denies: constipation, diarrhea, nausea, vomiting. : Denies: dysuria, flank pain. Musculoskeletal: Reports: extremity swelling. Denies: extremity pain. Neuro: Denies: seizure, syncope. Objective General VS/I O: Vital Signs: Date Time Temp Pulse Resp B/P B/P Pulse O2 O2 Flow FiO2 Mean Ox Delivery Rate 09/27 1659 97.9 75 18 104/58 73.3 99 Nasal cannula 09/27 1354 69 116/66 82.8 97 09/27 1254 65 111/67 81.2 97 09/27 1154 65 117/71 86.4 96 09/27 1144 97.7 71 121/76 90.6 96 09/27 1139 75 121/76 90.6 88 09/27 1110 70 16 136/60 96 Nasal 2.407234 cannula 09/27 1100 64 16 138/60 95 Nasal 2.523471 cannula 09/27 1050 70 16 130/60 96 Nasal 3.014301 cannula 09/27 1040 68 16 124/60 97 Nasal 3.188938 cannula 09/27 1030 72 16 126/60 97 Nasal 2.243778 cannula 09/27 1021 Nasal 2.957386 cannula 09/27 1020 60 16 130/60 96 Nasal 2.616963 cannula 09/27 1010 76 16 130/60 94 Room air 09/27 1000 99.4 76 16 126/56 98 Room air 09/27 0955 99.4 76 16 126/62 98 Room air 09/27 0817 131/76 94.0 09/27 0817 131/76 94.0 09/27 0753 74 131/76 94.0 97 09/27 0718 98 Nasal 2.921523 cannula 09/27 0653 78 141/70 93.8 96 09/27 0638 82 137/73 94.5 98 09/27 0636 99.3 75 19 96/55 68.6 96 Nasal cannula 09/27 0442 99.1 80 19 128/67 86.9 100 Nasal cannula 09/27 0013 99.9 83 18 139/72 94.3 97 Nasal cannula 09/26 2114 Nasal 2.399743 cannula 09/26 2001 99.0 82 19 143/63 89.9 95 Nasal cannula 09/26 2001 99.0 82 19 143/63 89.9 95 Nasal cannula 09/26 1925 96 Nasal 2.394866 cannula 24 hour I O ending at 0700: 09/27 0700 09/26 1900 Intake Total 650.00 Output Total Balance 650.00 Intake, IV 650.00 Physical Exam General appearance: alert, awake, oriented Head/Eyes: atraumatic, normocephalic ENT: moist mucosal membranes Neck: no masses or swelling Cardiovascular: normal heart sounds, regular rate rhythm Respiratory: aerating well, symmetric expansion Abdomen: non-tender, soft Extremities: moves all, R LE Bandaged, L LE with 2+ edema Musculoskeletal: normal inspection 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, 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 X 3 Diagnosis, Assessment Plan Free Text DxA P Notes Free text DxA P notes: R LE Hematome -Surgery Consulted, thank you for your time and recs -sp I D on 09/25 -Will have further Surgical intervention today -CM for wound vac and home health with 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 Acute Blood loss anemia -second to hematoma -transfuse for hgb <7 -> will transfuse one unit given active bleeding Htn -holding home meds -Prn hydralazine Dvt ppx: scds, holding Xarelto at 1711 RPT #:[id number] END OF REPORT [facility] 2018-09-27 06:36:00 [facility] ([facility]) Hospitalist Progress Note REPORT#:[id number] REPORT STATUS: Signed DATE:09/27/18 TIME: 635 PATIENT: GABBIE CASTANEDA UNIT #: [id number] ROOM/BED: Y41 : 42 AGE: 78 SEX: F ATTEND: Chele Bass MD ADM AUTHOR: Vasquez Noel DO R2 * ALL edits or amendments must be made on the electronic/computer document * Subjective Chief Complaint: R LE Hematoma HPI: Will have surgery today. Review of Systems Constitutional: Reports: fatigue. Denies: chills, fever. Skin: Reports: swelling. Denies: rash. Eyes: Denies: visual loss/blurred, eye pain. Respiratory: Denies: SOB, wheezing. Cardiovascular: Reports: edema. Denies: chest pain. GI: Denies: constipation, diarrhea, nausea, vomiting. : Denies: dysuria, flank pain. Musculoskeletal: Reports: extremity swelling. Denies: extremity pain. Neuro: Denies: seizure, syncope. Objective General VS/I O: Vital Signs: Date Time Temp Pulse Resp B/P B/P Pulse O2 O2 Flow FiO2 Mean Ox Delivery Rate 09/27 1659 97.9 75 18 104/58 73.3 99 Nasal cannula 09/27 1354 69 116/66 82.8 97 09/27 1254 65 111/67 81.2 97 09/27 1154 65 117/71 86.4 96 09/27 1144 97.7 71 121/76 90.6 96 09/27 1139 75 121/76 90.6 88 09/27 1110 70 16 136/60 96 Nasal 2.283555 cannula 09/27 1100 64 16 138/60 95 Nasal 2.100355 cannula 09/27 1050 70 16 130/60 96 Nasal 3.982487 cannula 09/27 1040 68 16 124/60 97 Nasal 3.014470 cannula 09/27 1030 72 16 126/60 97 Nasal 2.555172 cannula 09/27 1021 Nasal 2.950687 cannula 09/27 1020 60 16 130/60 96 Nasal 2.107727 cannula 09/27 1010 76 16 130/60 94 Room air 09/27 1000 99.4 76 16 126/56 98 Room air 09/27 0955 99.4 76 16 126/62 98 Room air 09/27 0817 131/76 94.0 09/27 0817 131/76 94.0 09/27 0753 74 131/76 94.0 97 09/27 0718 98 Nasal 2.148676 cannula 09/27 0653 78 141/70 93.8 96 09/27 0638 82 137/73 94.5 98 09/27 0636 99.3 75 19 96/55 68.6 96 Nasal cannula 09/27 0442 99.1 80 19 128/67 86.9 100 Nasal cannula 09/27 0013 99.9 83 18 139/72 94.3 97 Nasal cannula 09/26 2114 Nasal 2.027406 cannula 09/26 2001 99.0 82 19 143/63 89.9 95 Nasal cannula 09/26 2001 99.0 82 19 143/63 89.9 95 Nasal cannula 09/26 1925 96 Nasal 2.343801 cannula 24 hour I O ending at 0700: 09/27 0700 09/26 1900 Intake Total 650.00 Output Total Balance 650.00 Intake, IV 650.00 Physical Exam General appearance: alert, awake, oriented Head/Eyes: atraumatic, normocephalic ENT: moist mucosal membranes Neck: no masses or swelling Cardiovascular: normal heart sounds, regular rate rhythm Respiratory: aerating well, symmetric expansion Abdomen: non-tender, soft Extremities: moves all, R LE Bandaged, L LE with 2+ edema Musculoskeletal: normal inspection 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, 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 X 3 Diagnosis, Assessment Plan Free Text DxA P Notes Free text DxA P notes: R LE Hematome -Surgery Consulted, thank you for your time and recs -sp I D on 09/25 -Will have further Surgical intervention today -CM for wound vac and home health with 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 Acute Blood loss anemia -second to hematoma -transfuse for hgb <7 -> will transfuse one unit given active bleeding Htn -holding home meds -Prn hydralazine Dvt ppx: scds, holding Xarelto at 1711 at 1339 RPT #:[id number] END OF REPORT [facility] 2018-09-26 17:25:00 [facility] ([facility]) Hospitalist Progress Note REPORT#:[id number] REPORT STATUS: Signed DATE:09/26/18 TIME: 1725 PATIENT: GABBIE CASTANEDA UNIT #: [id number] ROOM/BED: Y314-1 : 42 AGE: 78 SEX: F ATTEND: Denton Masterson MD ADM AUTHOR: Vasquez Noel DO R2 * ALL edits or amendments must be made on the electronic/computer document * Subjective Chief Complaint: R LE Hematoma HPI: Patient reports feeling tired and that her jaw hurts, denies any other pain. Review of Systems Constitutional: Reports: fatigue. Denies: chills, fever. Skin: Reports: swelling. Denies: rash. Eyes: Denies: visual loss/blurred, eye pain. Respiratory: Denies: SOB, wheezing. Cardiovascular: Reports: edema. Denies: chest pain. GI: Denies: constipation, diarrhea, nausea, vomiting. : Denies: dysuria, flank pain. Musculoskeletal: Reports: extremity swelling. Denies: extremity pain. Neuro: Denies: seizure, syncope. Objective General VS/I O: Vital Signs: Date Time Temp Pulse Resp B/P B/P Pulse O2 O2 Flow FiO2 Mean Ox Delivery Rate 09/26 1559 97.9 73 18 122/74 90.0 98 Nasal cannula 09/26 1131 99.3 79 18 116/65 81.7 100 Nasal cannula 09/26 0929 97 Nasal 2.400989 cannula 09/26 0737 98.8 78 18 127/61 82.9 98 Nasal cannula 09/26 0424 98.2 70 18 140/73 95.2 96 Nasal cannula 09/26 0424 98.2 70 18 140/73 95.2 96 Nasal cannula 09/26 0116 100 Nasal 2.800302 cannula 09/26 0021 98.6 71 16 122/69 86.5 97 09/26 0010 66 111/51 71.2 98 09/26 0001 97.7 67 20 128/72 90.6 98 Nasal cannula 09/25 2355 67 128/72 90.6 98 09/25 2340 66 118/67 84.2 98 09/25 2325 66 134/65 87.9 97 09/25 2310 65 131/67 88.1 97 09/25 2255 65 115/46 69.5 98 / 2240 66 123/62 82.5 97 09/253 Nasal 2.749661 cannula 09/255 62 116/60 78.8 96 09/255 64 123/66 85.0 98 / 2140 61 119/63 81.3 99 /5 62 117/57 77.2 98 09/25 2110 62 120/63 82.1 100 09/258 96.8 66 18 121/51 74.3 100 09/25 2017 100 Nasal 2.912286 cannula 09/25 2010 62 118/61 80.2 100 09/25 1942 97.5 61 20 120/66 84.1 100 Nasal cannula 09/25 194 62 120/66 84.1 100 09/25 1912 62 99/45 63.4 98 09/25 1857 60 102/49 66.9 98 09/25 1842 61 101/48 65.8 09/25 1826 61 113/63 79.9 96 04 1819 60 89 04 1814 3.123509 09/25 1811 61 108/61 76.8 89 09/25 1810 97.3 66 18 122/62 82.1 91 Room air 09/25 1800 60 16 143/63 95 Nasal 2.204338 cannula 09/25 1755 61 16 141/61 96 Nasal 2.067713 cannula 09/25 1750 59 14 130/61 97 Nasal 2.463069 cannula 09/25 1745 58 16 125/59 99 Nasal 2.299949 cannula 09/25 1743 Nasal 2.534672 cannula 09/25 1740 58 14 113/57 95 Nasal 4.060173 cannula 24 hour I O ending at 0700: 09/26 0700 04 1900 Intake Total 950.00 1200.00 Output Total 300 Balance 650.00 1200.00 Intake, IV 600.00 1200.00 Intake, 350 Packed Cells Output, Urine 300 Medications: Active Meds + DC'd Last 24 Hrs Famotidine 20 MG DAILY PO Sodium Chloride 2-3 ML Q12HR IV Acetaminophen 500 MG Q4H PRN PRN PO Morphine Sulfate 2 MG Q4H PRN PRN IV Tramadol HCl 50 MG Q4H PRN PRN PO Fentanyl Citrate 50 MCG ANES Q5M PRN PRN IV (DC) Naloxone HCl 0.4 MG ASDIR PRN IV (DC) Ondansetron HCl 4 MG ANES ASDIR PRN IV (DC) Sodium Chloride 1,000 ML .[id number] IV (DC) Ondansetron HCl 4 MG Q8H PRN PRN IV Morphine Sulfate 2 MG Q4H PRN PRN IV (DC) Acetaminophen 650 MG Q4H PRN PRN PO (DC) Hydralazine HCl 10 MG Q6H PRN PRN IV Sodium Chloride 1,000 ML .Q20H IV Physical Exam General appearance: alert, awake, oriented Head/Eyes: atraumatic, normocephalic ENT: moist mucosal membranes Neck: no masses or swelling Respiratory: aerating well, symmetric expansion Abdomen: non-tender, soft Extremities: moves all, R LE Bandaged, L LE with 2+ edema Musculoskeletal: normal inspection 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, 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 X 3 Results Findings/Data: Laboratory Tests 09/26 09/26 0327 0327 Chemistry Sodium (133 - 145 MMOL/L) 142 Potassium (3.6 - 5.2 MMOL/L) 4.3 Chloride (100 - 108 MMOL/L) 106 Carbon Dioxide (22 - 32 MMOL/L) 31 BUN (6 - 20 MG/DL) 21 H Creatinine (0.60 - 1.00 MG/DL) 1.02 H Estimated GFR (MDRD) (39 - 90) 53 Glucose (65 - 99 MG/DL) 112 H Calcium (8.7 - 10.5 MG/DL) 8.6 L Ionized Calcium Herberth (1.12 - 1.32 MMOL/L) 1.17 Phosphorus (2.5 - 4.9 MG/DL) 3.3 Magnesium (1.8 - 2.4 MG/DL) 2.0 Total Bilirubin (0.0 - 1.0 MG/DL) 0.6 AST (15 - 37 Units/L) 22 ALT (30 - 65 Units/L) 18 L Alkaline Phosphatase (50 - 136 Units/L) 107 Total Protein (6.4 - 8.2 G/DL) 5.9 L Albumin (3.4 - 5.0 G/DL) 2.9 L Globulin (1.5 - 3.8 G/DL) 3.0 Albumin/Globulin Ratio (1.1 - 2.2) 1.0 L Laboratory Tests 09/267 Coagulation PT (9.6 - 12.3 SECONDS) 15.0 H INR 1.32 APTT (22.5 - 35.3 SECONDS) 37.3 H Laboratory Tests 09/26 1928 Hematology WBC (4.80 - 10.80 x10 3/uL) 10.70 RBC (4.2 - 5.4 x10 6/uL) 2.90 L Hgb (12.0 - 16.0 G/DL) 8.6 L 6.9 *L Hct (37 - 47 %) 27.0 L MCV (81 - 99 FL) 93.1 MCH (27 - 31 PG) 29.7 MCHC (33 - 37 G/DL) 31.9 L RDW Coeff of Skylar (11.5 - 14.5 %) 14.5 Plt Count (150 - 450 x10 3/uL) 183 MPV (7.4 - 10.4 FL) 10.8 H Neut % (Auto) (42 - 86 %) 76.9 Lymph % (Auto) (24 - 44 %) 10.7 L [place] % (Auto) (0.0 - 4.0 %) 10.8 H Eos % (Auto) (0.0 - 2.7 %) 0.7 Baso % (Auto) (0.0 - 0.5 %) 0.4 Eos # (Auto) (0.0 - 0.5 x10 3/uL) 0.08 Baso # (Auto) (0.0 - 0.2 x10 3/uL) 0.04 Abs Immat Gran (auto) (0.00 - 0.03 x10 3/uL) 0.05 H Absolute Neuts (auto) (1.8 - 7.7 x10 3/uL) 8.22 H Absolute Lymphs (auto) (1.0 - 4.8 x10 3/uL) 1.15 Absolute Monos (auto) (0.0 - 0.8 x10 3/uL) 1.16 H Absolute Nucleated RBC (0.0 - 0.2 X10 3/uL) 0.0 Immature Gran % (0.0 - 2.0 %) 0.5 Nucleated RBC % (0.0 - 0.0 %) 0.0 Laboratory Tests 09/26 1927 Miscellaneous Miscellaneous Test Called Diagnosis, Assessment Plan Free Text DxA P Notes Free text DxA P notes: Kamila CARDENAS Hematome -Surgery Consulted, thank you for your time and recs -sp I D on 09/25 -CM for wound vac and home health with 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 Acute Blood loss anemia -second to hematoma -transfuse for hgb <7 Htn -holding home meds -Prn hydralazine Dvt ppx: scds, holding Xarelto at 1749 RPT #:[id number] END OF REPORT [facility] 2018-09-26 17:25:00 [facility] ([facility]) Hospitalist Progress Note REPORT#:[id number] REPORT STATUS: Signed DATE:09/26/18 TIME: 1725 PATIENT: GABBIE CASTANEDA UNIT #: [id number] ROOM/BED: [place] [address] : 42 AGE: 78 SEX: F ATTEND: Chele Bass MD ADM AUTHOR: Vasquez Noel DO R2 * ALL edits or amendments must be made on the electronic/computer document * Subjective Chief Complaint: R LE Hematoma HPI: Patient reports feeling tired and that her jaw hurts, denies any other pain. Review of Systems Constitutional: Reports: fatigue. Denies: chills, fever. Skin: Reports: swelling. Denies: rash. Eyes: Denies: visual loss/blurred, eye pain. Respiratory: Denies: SOB, wheezing. Cardiovascular: Reports: edema. Denies: chest pain. GI: Denies: constipation, diarrhea, nausea, vomiting. : Denies: dysuria, flank pain. Musculoskeletal: Reports: extremity swelling. Denies: extremity pain. Neuro: Denies: seizure, syncope. Objective General VS/I O: Vital Signs: Date Time Temp Pulse Resp B/P B/P Pulse O2 O2 Flow FiO2 Mean Ox Delivery Rate 09/26 1559 97.9 73 18 122/74 90.0 98 Nasal cannula 09/26 1131 99.3 79 18 116/65 81.7 100 Nasal cannula 04/08 0929 97 Nasal 2.642286 cannula 04/08 0737 98.8 78 18 127/61 82.9 98 Nasal cannula 04/08 0424 98.2 70 18 140/73 95.2 96 Nasal cannula 04/08 0424 98.2 70 18 140/73 95.2 96 Nasal cannula 04/08 0116 100 Nasal 2.214289 cannula 04/08 0021 98.6 71 16 122/69 86.5 97 04/08 0010 66 111/51 71.2 98 04/08 0001 97.7 67 20 128/72 90.6 98 Nasal cannula 04/07 2355 67 128/72 90.6 98 04/07 2340 66 118/67 84.2 98 04/07 2325 66 134/65 87.9 97 04/07 2310 65 131/67 88.1 97 04/07 2255 65 115/46 69.5 98 04/07 2240 66 123/62 82.5 97 04/07 2233 Nasal 2.856420 cannula 04/07 2225 62 116/60 78.8 96 04/07 2155 64 123/66 85.0 98 04/07 2140 61 119/63 81.3 99 04/07 2125 62 117/57 77.2 98 04/07 2111 62 120/63 82.1 100 04/07 2048 96.8 66 18 121/51 74.3 100 04/07 2017 100 Nasal 2.501285 cannula 04/07 2010 62 118/61 80.2 100 04/07 1943 97.5 61 20 120/66 84.1 100 Nasal cannula 04/07 1941 62 120/66 84.1 100 04/07 1912 62 99/45 63.4 98 04/07 1857 60 102/49 66.9 98 04/07 1842 61 101/48 65.8 04/07 1826 61 113/63 79.9 96 04/07 1819 60 89 04/07 1814 3.885748 04/07 1811 61 108/61 76.8 89 04/07 1810 97.3 66 18 122/62 82.1 91 Room air 04/07 1800 60 16 143/63 95 Nasal 2.358659 cannula 04/07 1755 61 16 141/61 96 Nasal 2.018025 cannula 04/07 1750 59 14 130/61 97 Nasal 2.082840 cannula 04/07 1745 58 16 125/59 99 Nasal 2.031000 cannula 09/25 1743 Nasal 2.022456 cannula 09/25 1740 58 14 113/57 95 Nasal 4.370798 cannula 24 hour I O ending at 0700: 09/26 0700 09/25 1900 Intake Total 950.00 1200.00 Output Total 300 Balance 650.00 1200.00 Intake, IV 600.00 1200.00 Intake, 350 Packed Cells Output, Urine 300 Medications: Active Meds + DC'd Last 24 Hrs Famotidine 20 MG DAILY PO Sodium Chloride 2-3 ML Q12HR IV Acetaminophen 500 MG Q4H PRN PRN PO Morphine Sulfate 2 MG Q4H PRN PRN IV Tramadol HCl 50 MG Q4H PRN PRN PO Fentanyl Citrate 50 MCG ANES Q5M PRN PRN IV (DC) Naloxone HCl 0.4 MG ASDIR PRN IV (DC) Ondansetron HCl 4 MG ANES ASDIR PRN IV (DC) Sodium Chloride 1,000 ML .[id number] IV (DC) Ondansetron HCl 4 MG Q8H PRN PRN IV Morphine Sulfate 2 MG Q4H PRN PRN IV (DC) Acetaminophen 650 MG Q4H PRN PRN PO (DC) Hydralazine HCl 10 MG Q6H PRN PRN IV Sodium Chloride 1,000 ML .Q20H IV Physical Exam General appearance: alert, awake, oriented Head/Eyes: atraumatic, normocephalic ENT: moist mucosal membranes Neck: no masses or swelling Respiratory: aerating well, symmetric expansion Abdomen: non-tender, soft Extremities: moves all, R LE Bandaged, L LE with 2+ edema Musculoskeletal: normal inspection 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, 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 X 3 Results Findings/Data: Laboratory Tests 09/26 09/26 0327 0327 Chemistry Sodium (133 - 145 MMOL/L) 142 Potassium (3.6 - 5.2 MMOL/L) 4.3 Chloride (100 - 108 MMOL/L) 106 Carbon Dioxide (22 - 32 MMOL/L) 31 BUN (6 - 20 MG/DL) 21 H Creatinine (0.60 - 1.00 MG/DL) 1.02 H Estimated GFR (MDRD) (39 - 90) 53 Glucose (65 - 99 MG/DL) 112 H Calcium (8.7 - 10.5 MG/DL) 8.6 L Ionized Calcium Herberth (1.12 - 1.32 MMOL/L) 1.17 Phosphorus (2.5 - 4.9 MG/DL) 3.3 Magnesium (1.8 - 2.4 MG/DL) 2.0 Total Bilirubin (0.0 - 1.0 MG/DL) 0.6 AST (15 - 37 Units/L) 22 ALT (30 - 65 Units/L) 18 L Alkaline Phosphatase (50 - 136 Units/L) 107 Total Protein (6.4 - 8.2 G/DL) 5.9 L Albumin (3.4 - 5.0 G/DL) 2.9 L Globulin (1.5 - 3.8 G/DL) 3.0 Albumin/Globulin Ratio (1.1 - 2.2) 1.0 L Laboratory Tests 09/267 Coagulation PT (9.6 - 12.3 SECONDS) 15.0 H INR 1.32 APTT (22.5 - 35.3 SECONDS) 37.3 H Laboratory Tests 09/267 1928 Hematology WBC (4.80 - 10.80 x10 3/uL) 10.70 RBC (4.2 - 5.4 x10 6/uL) 2.90 L Hgb (12.0 - 16.0 G/DL) 8.6 L 6.9 *L Hct (37 - 47 %) 27.0 L MCV (81 - 99 FL) 93.1 MCH (27 - 31 PG) 29.7 MCHC (33 - 37 G/DL) 31.9 L RDW Coeff of Skylar (11.5 - 14.5 %) 14.5 Plt Count (150 - 450 x10 3/uL) 183 MPV (7.4 - 10.4 FL) 10.8 H Neut % (Auto) (42 - 86 %) 76.9 Lymph % (Auto) (24 - 44 %) 10.7 L [place] % (Auto) (0.0 - 4.0 %) 10.8 H Eos % (Auto) (0.0 - 2.7 %) 0.7 Baso % (Auto) (0.0 - 0.5 %) 0.4 Eos # (Auto) (0.0 - 0.5 x10 3/uL) 0.08 Baso # (Auto) (0.0 - 0.2 x10 3/uL) 0.04 Abs Immat Gran (auto) (0.00 - 0.03 x10 3/uL) 0.05 H Absolute Neuts (auto) (1.8 - 7.7 x10 3/uL) 8.22 H Absolute Lymphs (auto) (1.0 - 4.8 x10 3/uL) 1.15 Absolute Monos (auto) (0.0 - 0.8 x10 3/uL) 1.16 H Absolute Nucleated RBC (0.0 - 0.2 X10 3/uL) 0.0 Immature Gran % (0.0 - 2.0 %) 0.5 Nucleated RBC % (0.0 - 0.0 %) 0.0 Laboratory Tests 09/26 1927 Miscellaneous Miscellaneous Test Called Diagnosis, Assessment Plan Free Text DxA P Notes Free text DxA P notes: R LE Hematome -Surgery Consulted, thank you for your time and recs -sp I D on 09/25 -CM for wound vac and home health with 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 Acute Blood loss anemia -second to hematoma -transfuse for hgb <7 Htn -holding home meds -Prn hydralazine Dvt ppx: scds, holding Xarelto at 1749 at 1339 RPT #:[id number] END OF REPORT [facility] 2018-09-26 10:01:00 [facility] ([facility] General Surgery Progress Note REPORT#:[id number] REPORT STATUS: Signed DATE:09/26/18 TIME: 1001 PATIENT: GABBIE CASTANEDA UNIT #: [id number] ROOM/BED: [place] [address] : 42 AGE: 78 SEX: F ATTEND: Denton Masterson MD ADM AUTHOR: Carmen Nelson * ALL edits or amendments must be made on the electronic/computer document * Subjective Chief Complaint: pain HPI: Patient reports RLE pain. Tolerating diet. Objective Physical Exam VS/I O Last Documented: Result Date Time Pulse Ox 97 09/26 928 O2 Delivery Nasal cannula 09/26 928 O2 Flow Rate 2.821290 09/26 928 B/P 127/61 09/26 736 B/P Mean 82.9 09/26 736 Temp 98.8 09/26 736 Pulse 78 09/26 736 Resp 18 09/26 736 Vital Signs Date Temp Pulse Resp B/P B/P Mean Pulse Ox FiO2 09/25-09/26 96.8-98.8 57-78 12-20 99-143/45-73 63.4-95.2 89-100 24 hour I O ending at 0700: 09/26 0709/25 1900 Intake Total 950.00 1200.00 Output Total 300 Balance 650.00 1200.00 Intake, IV 600.00 1200.00 Intake, 350 Packed Cells Output, Urine 300 Medications: Active Meds + DC'd Last 24 Hrs Famotidine 20 MG DAILY PO Sodium Chloride 2-3 ML Q12HR IV Acetaminophen 500 MG Q4H PRN PRN PO Morphine Sulfate 2 MG Q4H PRN PRN IV Tramadol HCl 50 MG Q4H PRN PRN PO Fentanyl Citrate 50 MCG ANES Q5M PRN PRN IV (DC) Naloxone HCl 0.4 MG ASDIR PRN IV (DC) Ondansetron HCl 4 MG ANES ASDIR PRN IV (DC) Sodium Chloride 1,000 ML .[id number] IV (DC) Ephedrine Sulfate 0 .STK-MED ONE .ROUTE (DC) Cefazolin Sodium 0 .STK-MED ONE .ROUTE (DCr) Famotidine 0 .STK-MED ONE IV (DC) Ondansetron HCl 0 .STK-MED ONE .ROUTE (DCr) Lidocaine HCl 0 .STK-MED ONE .ROUTE (DC) Succinylcholine Chloride 0 .STK-MED ONE IV (DC) Propofol 20 ML .STK-MED ONE IV (DCr) Fentanyl Citrate 0 .STK-MED ONE .ROUTE (DCr) Ondansetron HCl 4 MG Q8H PRN PRN IV Morphine Sulfate 2 MG Q4H PRN PRN IV (DC) Prothrombin Complex Concent (Human) 5,000 UNIT ONCE ONE IV (DC) IV Miscellaneous Supplies 1 EACH Morphine Sulfate 0 .STK-MED ONE IV (DCr) Acetaminophen 650 MG Q4H PRN PRN PO (DC) Hydralazine HCl 10 MG Q6H PRN PRN IV Morphine Sulfate 2 MG Q4H PRN PRN IV (DC) Sodium Chloride 1,000 ML .Q20H IV General appearance: alert, awake, oriented Wound/incision: Location: RLE Site condition: dressing clean dry, dressing intact Respiratory: symmetric expansion, no distress 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, 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 Results Findings/Data: Laboratory Tests 09/26/18 0327: [Embedded Image Not Available] 09/25/18 1928: [Embedded Image Not Available] 09/25/18 1409: [Embedded Image Not Available] Laboratory Tests 09/26 Chemistry Sodium (133 - 145 MMOL/L) 142 Potassium (3.6 - 5.2 MMOL/L) 4.3 Chloride (100 - 108 MMOL/L) 106 Carbon Dioxide (22 - 32 MMOL/L) 31 BUN (6 - 20 MG/DL) 21 H Creatinine (0.60 - 1.00 MG/DL) 1.02 H Estimated GFR (MDRD) (39 - 90) 53 Glucose (65 - 99 MG/DL) 112 H Calcium (8.7 - 10.5 MG/DL) 8.6 L Ionized Calcium Herberth (1.12 - 1.32 MMOL/L) 1.17 Phosphorus (2.5 - 4.9 MG/DL) 3.3 Magnesium (1.8 - 2.4 MG/DL) 2.0 Total Bilirubin (0.0 - 1.0 MG/DL) 0.6 AST (15 - 37 Units/L) 22 ALT (30 - 65 Units/L) 18 L Alkaline Phosphatase (50 - 136 Units/L) 107 Total Protein (6.4 - 8.2 G/DL) 5.9 L Albumin (3.4 - 5.0 G/DL) 2.9 L Globulin (1.5 - 3.8 G/DL) 3.0 Albumin/Globulin Ratio (1.1 - 2.2) 1.0 L Laboratory Tests 09/26 1405 1126 Coagulation PT (9.6 - 12.3 SECONDS) 15.0 H 19.4 H 26.2 *H INR 1.32 1.70 2.28 APTT (22.5 - 35.3 SECONDS) 37.3 H Laboratory Tests 09/261 7 1409 Hematology WBC (4.80 - 10.80 x10 3/uL) 10.70 RBC (4.2 - 5.4 x10 6/uL) 2.90 L Hgb (12.0 - 16.0 G/DL) 8.6 L 6.9 *L 8.0 L Hct (37 - 47 %) 27.0 L 26.1 L MCV (81 - 99 FL) 93.1 MCH (27 - 31 PG) 29.7 MCHC (33 - 37 G/DL) 31.9 L 30.7 L RDW Coeff of Skylar (11.5 - 14.5 %) 14.5 Plt Count (150 - 450 x10 3/uL) 183 MPV (7.4 - 10.4 FL) 10.8 H Neut % (Auto) (42 - 86 %) 76.9 Lymph % (Auto) (24 - 44 %) 10.7 L [place] % (Auto) (0.0 - 4.0 %) 10.8 H Eos % (Auto) (0.0 - 2.7 %) 0.7 Baso % (Auto) (0.0 - 0.5 %) 0.4 Eos # (Auto) (0.0 - 0.5 x10 3/uL) 0.08 Baso # (Auto) (0.0 - 0.2 x10 3/uL) 0.04 Abs Immat Gran (auto) (0.00 - 0.03 x10 3/uL) 0.05 H Absolute Neuts (auto) (1.8 - 7.7 x10 3/uL) 8.22 H Absolute Lymphs (auto) (1.0 - 4.8 x10 3/uL) 1.15 Absolute Monos (auto) (0.0 - 0.8 x10 3/uL) 1.16 H Absolute Nucleated RBC (0.0 - 0.2 X10 3/uL) 0.0 Immature Gran % (0.0 - 2.0 %) 0.5 Nucleated RBC % (0.0 - 0.0 %) 0.0 Laboratory Tests 09/25 1126 Miscellaneous Miscellaneous Test Called Called Diagnosis, Assessment Plan Free Text A P: 78F with RLE hematoma s/p Incision and debridement on 09/25/18 Plan to take back to the OR tomorrow for possible further debridement and then placement of wound vac. She will need a home wound vac at discharge and arrangement for this can begin today. She will require wound vac change three times weekly and so this needs to be added to her discharge planning. Discharge planning per primary team pending medical/surgical outcomes and treatment course. at 1004 RPT #:[id number] END OF REPORT [facility] 2018-09-26 10:01:00 [facility] ([facility]) General Surgery Progress Note REPORT#:[id number] REPORT STATUS: Signed DATE:09/26/18 TIME: 1001 PATIENT: GABBIE CASTANEDA UNIT #: [id number] ROOM/BED: [place] [id number] : 42 AGE: 78 SEX: F ATTEND: Denton Masterson MD ADM AUTHOR: Carmen Nelson * ALL edits or amendments must be made on the electronic/computer document * Carmen Nelson 09/26/18 1001: Subjective Chief Complaint: pain HPI: Patient reports RLE pain. Tolerating diet. Objective Physical Exam VS/I O Last Documented: Result Date Time Pulse Ox 97 09/26 928 O2 Delivery Nasal cannula 09/26 928 O2 Flow Rate 2.749333 09/26 928 B/P 127/61 09/26 736 B/P Mean 82.9 09/26 736 Temp 98.8 09/26 736 Pulse 78 09/26 736 Resp 18 09/26 736 Vital Signs Date Temp Pulse Resp B/P B/P Mean Pulse Ox FiO2 09/25-09/26 96.8-98.8 57-78 12-20 99-143/45-73 63.4-95.2 89-100 24 hour I O ending at 0700: 09/26 0700 09/25 1900 Intake Total 950.00 1200.00 Output Total 300 Balance 650.00 1200.00 Intake, IV 600.00 1200.00 Intake, 350 Packed Cells Output, Urine 300 Medications: Active Meds + DC'd Last 24 Hrs Famotidine 20 MG DAILY PO Sodium Chloride 2-3 ML Q12HR IV Acetaminophen 500 MG Q4H PRN PRN PO Morphine Sulfate 2 MG Q4H PRN PRN IV Tramadol HCl 50 MG Q4H PRN PRN PO Fentanyl Citrate 50 MCG ANES Q5M PRN PRN IV (DC) Naloxone HCl 0.4 MG ASDIR PRN IV (DC) Ondansetron HCl 4 MG ANES ASDIR PRN IV (DC) Sodium Chloride 1,000 ML .T56A42H IV (DC) Ephedrine Sulfate 0 .STK-MED ONE .ROUTE (DC) Cefazolin Sodium 0 .STK-MED ONE .ROUTE (DCr) Famotidine 0 .STK-MED ONE IV (DC) Ondansetron HCl 0 .STK-MED ONE .ROUTE (DCr) Lidocaine HCl 0 .STK-MED ONE .ROUTE (DC) Succinylcholine Chloride 0 .STK-MED ONE IV (DC) Propofol 20 ML .STK-MED ONE IV (DCr) Fentanyl Citrate 0 .STK-MED ONE .ROUTE (DCr) Ondansetron HCl 4 MG Q8H PRN PRN IV Morphine Sulfate 2 MG Q4H PRN PRN IV (DC) Prothrombin Complex Concent (Human) 5,000 UNIT ONCE ONE IV (DC) IV Miscellaneous Supplies 1 EACH Morphine Sulfate 0 .STK-MED ONE IV (DCr) Acetaminophen 650 MG Q4H PRN PRN PO (DC) Hydralazine HCl 10 MG Q6H PRN PRN IV Morphine Sulfate 2 MG Q4H PRN PRN IV (DC) Sodium Chloride 1,000 ML .Q20H IV General appearance: alert, awake, oriented Wound/incision: Location: RLE Site condition: dressing clean dry, dressing intact Respiratory: symmetric expansion, no distress 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, 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 Results Findings/Data: Laboratory Tests 09/26/18 0327: [Embedded Image Not Available] 09/25/18 1928: [Embedded Image Not Available] 09/25/18 1409: [Embedded Image Not Available] Laboratory Tests 09/26 0327 Chemistry Sodium (133 - 145 MMOL/L) 142 Potassium (3.6 - 5.2 MMOL/L) 4.3 Chloride (100 - 108 MMOL/L) 106 Carbon Dioxide (22 - 32 MMOL/L) 31 BUN (6 - 20 MG/DL) 21 H Creatinine (0.60 - 1.00 MG/DL) 1.02 H Estimated GFR (MDRD) (39 - 90) 53 Glucose (65 - 99 MG/DL) 112 H Calcium (8.7 - 10.5 MG/DL) 8.6 L Ionized Calcium Herberth (1.12 - 1.32 MMOL/L) 1.17 Phosphorus (2.5 - 4.9 MG/DL) 3.3 Magnesium (1.8 - 2.4 MG/DL) 2.0 Total Bilirubin (0.0 - 1.0 MG/DL) 0.6 AST (15 - 37 Units/L) 22 ALT (30 - 65 Units/L) 18 L Alkaline Phosphatase (50 - 136 Units/L) 107 Total Protein (6.4 - 8.2 G/DL) 5.9 L Albumin (3.4 - 5.0 G/DL) 2.9 L Globulin (1.5 - 3.8 G/DL) 3.0 Albumin/Globulin Ratio (1.1 - 2.2) 1.0 L Laboratory Tests 09/26 09/25 09/25 0327 1409 1126 Coagulation PT (9.6 - 12.3 SECONDS) 15.0 H 19.4 H 26.2 *H INR 1.32 1.70 2.28 APTT (22.5 - 35.3 SECONDS) 37.3 H Laboratory Tests 09/26 09/25 09/25 0327 1928 1409 Hematology WBC (4.80 - 10.80 x10 3/uL) 10.70 RBC (4.2 - 5.4 x10 6/uL) 2.90 L Hgb (12.0 - 16.0 G/DL) 8.6 L 6.9 *L 8.0 L Hct (37 - 47 %) 27.0 L 26.1 L MCV (81 - 99 FL) 93.1 MCH (27 - 31 PG) 29.7 MCHC (33 - 37 G/DL) 31.9 L 30.7 L RDW Coeff of Skylar (11.5 - 14.5 %) 14.5 Plt Count (150 - 450 x10 3/uL) 183 MPV (7.4 - 10.4 FL) 10.8 H Neut % (Auto) (42 - 86 %) 76.9 Lymph % (Auto) (24 - 44 %) 10.7 L [place] % (Auto) (0.0 - 4.0 %) 10.8 H Eos % (Auto) (0.0 - 2.7 %) 0.7 Baso % (Auto) (0.0 - 0.5 %) 0.4 Eos # (Auto) (0.0 - 0.5 x10 3/uL) 0.08 Baso # (Auto) (0.0 - 0.2 x10 3/uL) 0.04 Abs Immat Gran (auto) (0.00 - 0.03 x10 3/uL) 0.05 H Absolute Neuts (auto) (1.8 - 7.7 x10 3/uL) 8.22 H Absolute Lymphs (auto) (1.0 - 4.8 x10 3/uL) 1.15 Absolute Monos (auto) (0.0 - 0.8 x10 3/uL) 1.16 H Absolute Nucleated RBC (0.0 - 0.2 X10 3/uL) 0.0 Immature Gran % (0.0 - 2.0 %) 0.5 Nucleated RBC % (0.0 - 0.0 %) 0.0 Laboratory Tests 09/25 09/25 1928 1126 Miscellaneous Miscellaneous Test Called Called Diagnosis, Assessment Plan Free Text A P: 78F with RLE hematoma s/p Incision and debridement on 09/25/18 Plan to take back to the OR tomorrow for possible further debridement and then placement of wound vac. She will need a home wound vac at discharge and arrangement for this can begin today. She will require wound vac change three times weekly and so this needs to be added to her discharge planning. Discharge planning per primary team pending medical/surgical outcomes and treatment course. Marlene Taylor 09/26/18 1146: Attestations Midlevel/Physician Attestation Physician attestation: The PA/BONING ROOM WORKER's history, physical exam, assessment and plan was reviewed. The patient was interviewed and examined by me. HPI: The tenderness of the medial calf has greatly improved. She has some soreness over the posterior ankle. My personal exam reveals: No acute distress. Right medial calf dressing intact. Normal capillary refill. I agree with the assessment and care plan, and confirm the diagnosis(es) above. ASSESSMENT PLAN: 78-year-old female with traumatic subcutaneous hematoma of the right calf with active extravasation on imaging. She underwent evacuation of hematoma and control of bleeding. Plan return to the OR tomorrow for wound evaluation and likely wound VAC. Plan for physical therapy to work with patient. at 1004 at 1148 RPT #:[id number] END OF REPORT [facility] 2018-09-25 18:28:00 [facility] ([facility]) DT Operative Note REPORT#:[id number] REPORT STATUS: Signed DATE:09/25/18 TIME: 1828 PATIENT: GABBIE CASTANEDA LITZY UNIT #: [id number] ROOM/BED: [place] [address] : 42 AGE: 78 SEX: F ATTEND: Cehle Bass MD ADM AUTHOR: Marlene Taylor MD * ALL edits or amendments must be made on the electronic/computer document * Operative Report Operative Note Note: DATE: 09/25/2018 PREOPERATIVE DIAGNOSIS: Right medial calf expanding hematoma POSTOPERATIVE DIAGNOSIS: Same PROCEDURE PERFORMED: 1. Evacuation of hematoma 2. Excisional debridment skin and subcutaneous tissue 3. Ligation saphenous vein and branches SURGEON: Marlene Taylor M.D. PROPELLER LAYOUT WORKER: Carmen Nelson ANESTHESIA: Per anesthesia. FLUIDS: Per anesthesia FINDINGS: Necrotic skin, subcutaneous tissue right over medial calf requiring excisional debridement Wound measuring approximately 25 x 13 x cm Evacution 1L of blood, ligation of saphenous vein and branches Wet to dry packing performed INDICATIONS: A 78-year-old female on Xarelto was atraumatic expanding right lower extremity hematoma with overlying skin necrosis. The risks, benefits, and alternative of the procedure were explained to the patient and she elected to proceed. PROCEDURE IN DETAIL: The patient was properly identified in the preoperative area. Informed consent was obtained from the patient after explaining all of the risks, benefits and alternatives to the procedure which the patient appeared to understand and so stated. The patient was taken to the operating room where she was placed under general anesthesia. Her right leg was prepped and draped under sterile technique. An incision was made with a #15 blade transversally across the area of greatest tension over the medial calf. This allowed drainage and evacuation of hematoma. Devitalized skin and subcutaneous tissue was then excisionally debrided with a 15 blade scalpel and cautery as needed. This created a wound measuring about 25 x 13 x 5 centimeters squared. The wound was copiously irrigated with 1 L of saline using a jet lavage. Hemostasis was performed with a combination of ligation of branches of the venous system with silk ties and cautery as needed. The wound was then packed with moist Kerlix and then covered with sterile dry gauze dressing. The patient was awakened from anesthesia and and taken to the recovery room. All counts were correct. The patient tolerated the procedure well. All counts were correct. The patient tolerated the procedure well. at 2212 RPT #:[id number] END OF REPORT [facility] 2018-09-25 17:54:00 [facility] ([facility]) Brief Op Note REPORT#:[id number] REPORT STATUS: Signed DATE:09/25/18 TIME: 1754 PATIENT: GABBIE CASTANEDA UNIT #: [id number] ROOM/BED: [place] [address] : 42 AGE: 78 SEX: F ATTEND: Jayjay Singh MD ADM AUTHOR: Marlene Taylor MD * ALL edits or amendments must be made on the electronic/computer document * Op/Inv Proc Note - Brief Pre-procedure diagnosis: Right medial calf expanding hematoma Post-procedure diagnosis: same as pre procedure dx Procedures performed: Evacuation of hematoma Excisional debridment skin and subcutaneous Ligation saphenous vein and branches Primary Surgeon: Marlene Taylor Sampler Radioactive Waste(s): Carmen Nelson Findings: Necrotic skin, subcutaneous tissue right over medial calf requiring excisional debridement Evacution 1L of blood, ligation of saphenous vein and branches Wet to dry packing performed Complications: none Estimated blood loss in ml's: 1 L Specimens removed/altered: none Disposition: PACU at 1759 [facility] #:[id number] END OF REPORT [facility] 2018-09-25 17:39:00 [id number] [place], [place] PATIENT NAME: GABBIE CASTANEDA ADMIT DATE: 09/25/18 ACCOUNT NO: [id number] ROOM NO: [id number] AGE: 78 REPORT TYPE: HISTORY AND PHYSICAL SEX: F ADMITTING PHYSICIAN:Chele Bass MD ATTENDING PHYSICIAN:Chele Bass MD ADMISSION DATE: 09/25/2018 HISTORY OF PRESENT ILLNESS: Ms. Sweeney is a 78-year-old female with a known past medical history for DVT, history of pulmonary embolism, hypertension, gastroesophageal reflux disease, COPD, asthma, and hyperlipidemia, who initially presented to the Emergency Department on 09/23/2018 after a reported fall. She was reportedly walking in her backyard. She tripped over a tree root and hit her head on the side of the house. At that time, she was evaluated with a head CT scan, which was found to be negative except for atrophic and microvascular ischemic changes, but no acute intracranial abnormalities. She also underwent CT scan of the C-spine with no acute bony abnormalities. She was sent home at that time, she did reportedly continue her anticoagulation, Eliquis 5 mg p.o. b.i.d. She also underwent knee x-ray imaging showing no acute abnormality and ankle x-ray imaging showing no acute abnormality. Knee x-ray imaging showed left knee replacement. The patient returns to the [facility] Emergency Department 09/25/2018. Her 7 cm contusion hematoma to the right lower extremity became increasingly painful over the past 2 days. She has noticed increased size of the right lower extremity hematoma, prompting her to come to the Emergency Department. Trauma orthopedic surgery was consulted from the Emergency Department. CT scan of the lower extremity was completed showing a large hematoma located in the subcutaneous fat and medial calf measuring 10 x 6 x 15 cm with active extravasation of blood into the hematoma from a small superficial artery or vein located along the deep aspect of the hematoma. She will be admitted for the following. At this time, she is now postoperative from incision and drainage and evaluation of the right lower extremity hematoma. She did tolerate her procedure well. She is arousable postoperatively, but remains lethargic post sedation. PAST MEDICAL HISTORY: Per HPI. PAST SURGICAL HISTORY: Hysterectomy, cholecystectomy, knee arthroscopy, left knee replacement. SOCIAL HISTORY: The patient is a former tobacco smoker, currently denies alcohol, tobacco, or drug use. ALLERGIES: SULFA, PENICILLIN, ASPIRIN, IODINE, AND CODEINE. MEDICATIONS: Please see medication reconciliation form. PHYSICAL EXAMINATION: VITAL SIGNS: Temperature 97.1, pulse rate of 58, blood pressure 112/53, pulse ox of 97, and 93% on 3 L nasal cannula. PATIENT NAME: GABBIE CASTANEDA LITZY HEENT: Normocephalic, atraumatic. Pupils equal, round, and reactive to light and accommodation. PULMONARY: Clear to auscultation. No wheezing, rales, or rhonchi heard at this time. CARDIOVASCULAR: Regular rate and rhythm. No murmur, rubs, or gallops are noted. ABDOMEN: The patient's abdomen is obese, soft, nontender, and nondistended. No rebound tenderness or guarding is noted. EXTREMITIES: The patient has dressings in place to the right lower extremity below the knee now postoperative. No active bleeding is noted at this time. The patient has extensive bruising to the left lower extremity below the knee as well. No significant tenderness is elicited. Range of motion difficult to assess secondary to recurrent postoperative state. NEUROLOGIC: No acute focal gross neurologic deficits are noted. Further difficult to examine due to recurrent postoperative state. LABORATORY DATA AND IMAGING: Includes CBC; white blood cell count of 10.4, hemoglobin of 10.4 down trending to 8.0, hematocrit of 33.1 down trending to 8.26, and platelet count of 257. Coagulation studies show PT 19.4 and INR of 1.7. BMP; sodium 142, potassium 4.4, chloride 104, CO2 30, BUN of 27, creatinine 1.16, glucose of 134, calcium 9.2. IMAGING: Includes CT of the right lower extremity consistent with a large hematoma located within the subcutaneous fat of the medial calf measuring 10.0 x 6.6 x 15.3 cm with active extravasation of blood into the hematoma from small superficial artery or vein. ASSESSMENT AND PLAN: This is a 78-year-old female with the above noted past medical history, presenting with: 1. Right lower extremity hematoma. CT scan imaging consistent with a large hematoma located within the subcutaneous fat at the medial calf measuring 10.0 x 6.6 x 15.3 cm with active extravasation of blood into the hematoma from a small superficial artery or vein. Orthopedic trauma surgery was consulted from the Emergency Department and Dr. Nelson has taken the patient for operative intervention including incision and drainage and hematoma evacuation. Currently, postoperative day 0. Trend hemoglobin and hematocrit levels and transfuse for hemoglobin less than 7 or symptomatic. The patient has been transfused 2 units of plasma. 2. History of deep venous thrombosis and pulmonary embolism: The patient is prescribed Eliquis 5 mg p.o. b.i.d., which will be held at this time secondary to hematoma and bleeding as per above. 3. Anemia: This is likely secondary to right lower extremity hematoma on anticoagulation with Eliquis. Holding Eliquis at this time. Trend hemoglobin and hematocrit q.6h. Transfuse for hemoglobin less than 7 or symptomatic anemia. Two units of RBCs are currently on hold. 4. Hypertension: Continue monitoring blood pressure at this time. p.r.n. hydralazine 10 mg IV q. 4h. for systolic blood pressure greater than 170. Holding the patient's amlodipine 10 mg p.o. daily, Toprol-XL 100 mg p.o. daily and valsartan 320 mg p.o. daily. 5. Gastroesophageal reflux disease. Continue Protonix 40 mg p.o. daily. PATIENT NAME: GABBIE CASTANEDA 6. Gastrointestinal and deep venous thrombosis prophylaxis, bilateral SCDs, Pepcid 20 mg p.o. daily. DISPOSITION: Admitted to the medical surgical floor for further evaluation. Postoperative management as per above. Dictated By: Denton Masterson MD WT: HP:SERENE/DARRYL/KEISHA Conf#: [id number]/DID#: [id number] Authenticated by Denton Masterson MD On 09/28/2018 07:06:51 AM at 0707 PATIENT NAME: GABBIE CASTANEDA LITZY [facility] 2018-09-25 15:50:00 [facility] ([facility]) Clinical Note REPORT#:[id number] REPORT STATUS: Signed DATE:09/25/18 TIME: 1550 PATIENT: GABBIE CASTANEDA UNIT #: [id number] ROOM/BED: [place] [id number] : 42 AGE: 78 SEX: F ATTEND: Sadiq Bates DO ADM AUTHOR: Denton Masterson MD * ALL edits or amendments must be made on the electronic/computer document * Clinical Note Note: 78 yo female presenting with ;arge hematoma to RLE. Recent operative intervention. 1.Large hematoma located within the subcutaneous fat of the medial calf measuring 10.0 x 6.6 x 15.3 cm. 2. Active extravasation of blood into the hematoma from a small superficial artery or vein, located along the deep aspect of the hematoma. A/P: OCTOR for hematoma evacuation/expoloration. Please see disctated HPI to follow. Thank you at 1552 RPT #:[id number] END OF REPORT [facility] 2018-09-25 08:35:00 [facility] ([facility]) Clinical Note REPORT#:[id number] REPORT STATUS: Signed DATE:09/25/18 TIME: 08 PATIENT: GABBIE CASTANEDA UNIT #: [id number] ROOM/BED: : 42 AGE: 78 SEX: F ATTEND: Luke Hercules DO ADM DT: AUTHOR: Carmen Nelson * ALL edits or amendments must be made on the electronic/computer document * Clinical Note Note: TRAUMA SURGERY CONSULT ASSESSMENT: Primary Diagnosis Mechanism: Same Height Fall Injuries: RLE Hematoma Acute Active Problems: Anticoagulation use, Xeralto Elevated INR 2.29 CKD Anemia HGB 10.4 Resolved Problems: n/a. Chronic Medical Problems: DVT, PE, HTN, HLD, COPD/asthma DVT Prophylaxis: SCDs GI Prophylaxis: n/a FEN: NPO Lines Ernandez ETT (placement dates): n/a Consultants: n/a Procedures: n/a PLAN: Agree to admission. Admit to Internal medicine service. Tranfuse 2 U FFP NOW, and then hold 2 U PRBC. Will take to OR for incision, exploration and debridement of right lower extremity hematoma. Hold anticoagulation. NPO. Admit to medical/surgical unit. Indications for procedure as well as risks and benefits of procedures discussed with patient including pain, infection, bleeding, blood clots, , need for additional surgery, poor wound healing and/or injury to surrounding structures/ vessels/tissue/nerves. Written consent obtained. ___ The patient was seen in ED at the request of Dr. Hercules CHIEF COMPLAINT: RLE pain HPI: Patient is a 78 F who presented to [facility] ED due to CC of RLE pain and hematoma. She states that about 3 days ago. This was a same height fall and she presented to [facility] ED at that time for evaluation in which CT head and XR RLE was performed and she was discharged home. At that time she had about a 7 cm contusion/hematoma to her RLE. She presented again today due to increased pain to her RLE as well as increased size of the hematoma. She takes Xeralto at home due to hx of DVT/VTE. She last took her Xeralto last night. She denies CP, SOB. She states that she use to take Eliquis which was started during her admission for her DVT/PE but states that she was changed to Xeralto recently due to "my kidney function". Her INR is elevated but she states that she does not, and has not taken Coumadin. PAST MEDICAL HISTORY: as above PAST SURGICAL HISTORY: hysterectomy, cholecystectomy, arthroscopy SOCIAL HISTORY: former tobacco. occassional EtOH. no recreational drug use ALLERGIES: Sulfa, PCN, ASA, iodine, codeine MEDICATIONS: Home Medications: Medication Dose/Rte/Freq Days Qty Entered Last Max Daily Dose Reviewed POTASSIUM CHLORIDE ER 20 MEQ PO 07/09/17 09/25/18 (KLOR-CON M20) DAILY 1800 162 06 Strength: 20 MEQ TAB.SR amLODIPine (NORVASC) 10 MG PO DAILY 179907/09/17 09/25/18 Strength: 10 MG TAB 1627 0624 FUROSEMIDE (LASIX) 20 MG PO DAILY 179907/09/17 09/25/18 Strength: 20 MG TAB 16201 2424 predniSONE 3 MG PO DAILY 07/09/17 09/25/18 Strength: 1 MG TAB 18511 2424 VALSARTAN (DIOVAN) 320 MG PO DAILY 07/09/17 09/25/18 Strength: 320 MG TAB 18512 2424 ALLOPURINOL (ZYLOPRIM) 300 MG PO DAILY 07/10/17 09/25/18 Strength: 300 MG TAB 1849 0624 HYDROcodone/APAP 1 TAB PO 07/10/17 09/25/18 (NORCO 10/325) TID PRN PAIN 1855 623 Strength: 1 TAB TAB METOPROLOL SUCC XL 100 MG PO DAILY 07/10/17 09/25/18 (TOPROL XL) 1858 24 Strength: 100 MG TAB.SA [PAPAYA ENZYME] CHEW 4 TABS DAILY 07/10/17 09/25/18 Strength: 4 TABS CAP.CHEW 190 0624 MAG CARB/AL HYDROX 2 TABS PO Q12H 07/10/17 09/25/18 (GAVISCON 358-95 1912 0624 MG/15ML) Strength: 355 ML ORAL.SUSP APIXABAN (ELIQUIS) 5 MG PO ASDIR 180 07/15/17 09/25/18 Strength: 5 MG TAB [address] 40 MG PO DAILY 30 07/15/17 09/25/18 (PROTONIX) 1330 0624 Strength: 40 MG TAB. Current Hospital Medications: Central Nervous System Agents Sig/Joanne Start time Last Medication Dose Route Stop Time Status Admin Fentanyl Citrate 50 MCG ONCE ONE 09/26 799 DC 09/25 (SUBLIMAZE 100MCG/ IV 09/25 08 0801 2ML INJECTION) Morphine Sulfate 4 MG X1ED STA 09/25 629 DCr 09/25 (morphine SULFATE) IV 09/25 0631 0637 Diagnostic Agents Sig/Joanne Start time Last Medication Dose Route Stop Time Status Admin Iopamidol 0 .STK-MED ONE 09/25 736 DCr 09/25 (ISOVUE-300) IV 0744 [facility] Sig/Jonane Start time Last Medication Dose Route Stop Time Status Admin Ondansetron HCl 4 MG X1ED STA 09/25 629 DC 09/25 (ZOFRAN 4 MG/2 ML) IV 09/25 630 0637 ROS: Pertinent positives and negatives as above, otherwise negative for the respective garcia for the following: Neuro, eyes, ENT, CV, resp, GI, musculoskeletal, , skin, psychiatric ___ PHYSICAL EXAM: General: Well developed, well nourished in NAD. 4 point vital signs reviewed Head/Eyes: Atraumatic, normocephalic. No periorbital ecchymosis. Cornea and conjunctiva clear. EOMI with no nystagmus. pupils 3 mm in size and reactive ENT: Midface stable. No malocclusion or crepitus. Normal dentition. Nose atraumatic with no rhinorrhea or epistaxis; no septal hematoma. Ears atraumatic without hemotympanum. No mastoid ecchymosis Neck: No anterior hematomas. no tracheal deviation. no carotid bruits. No JVD CV: Regular rate and rhythm. No murmur, rubs or gallops. No edema.Rad pulses +2, DP pulses 2+ Pulmonary/chest: CTA and equal bilaterally. No respiratory distress. No bruising, crepitus or subcutaneous emphysema ABD: + BS. Soft, nontender. No guarding or rebound. No distention. No abdominal bruit or masses. No ecchymosis noted to external abdomen or flank : Normal external genitalia. No blood at meatus. normal rectal tone MSK: o Digits: Non-tender to palpation. No clubbing. No cyanosis. Capillary refill <2 secs o Joints, bone and muscle: - Pelvis: Stable to anterior stress - Extremities: o Nontender to palpation with no observed deformities x 4. Normal ROM x 4. - Cervical Spine: no midline tenderness or gross step off. Full ROM without pain. - Thoracic/Lumbar Spine: Atraumatic with normal alignment. 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 There is a 51.5 cm hematoma noted to right lower lateral leg. ___ LABS: Reviewed. RADIOLOGY: I have reviewed the images and reports personally. Laboratory Tests: 09/26 627 Chemistry Sodium (133 - 145 MMOL/L) 142 Potassium (3.6 - 5.2 MMOL/L) 4.4 Chloride (100 - 108 MMOL/L) 104 Carbon Dioxide (22 - 32 MMOL/L) 30 BUN (6 - 20 MG/DL) 27 H Creatinine (0.60 - 1.00 MG/DL) 1.16 H Estimated GFR (MDRD) (39 - 90) 45 Glucose (65 - 99 MG/DL) 134 H Calcium (8.7 - 10.5 MG/DL) 9.2 Coagulation PT (9.6 - 12.3 SECONDS) 26.3 *H INR 2.29 APTT (22.5 - 35.3 SECONDS) 40.7 H Hematology WBC (4.80 - 10.80 x10 3/uL) 10.47 RBC (4.2 - 5.4 x10 6/uL) 3.58 L Hgb (12.0 - 16.0 G/DL) 10.4 L Hct (37 - 47 %) 33.1 L MCV (81 - 99 FL) 92.5 MCH (27 - 31 PG) 29.1 MCHC (33 - 37 G/DL) 31.4 L RDW Coeff of Skylar (11.5 - 14.5 %) 14.4 Plt Count (150 - 450 x10 3/uL) 257 MPV (7.4 - 10.4 FL) 11.2 H Neut % (Auto) (42 - 86 %) 75.3 Lymph % (Auto) (24 - 44 %) 12.5 L [place] % (Auto) (0.0 - 4.0 %) 9.6 H Eos % (Auto) (0.0 - 2.7 %) 1.6 Baso % (Auto) (0.0 - 0.5 %) 0.5 Eos # (Auto) (0.0 - 0.5 x10 3/uL) 0.17 Baso # (Auto) (0.0 - 0.2 x10 3/uL) 0.05 Abs Immat Gran (auto) (0.00 - 0.03 x10 3/uL) 0.05 H Absolute Neuts (auto) (1.8 - 7.7 x10 3/uL) 7.89 H Absolute Lymphs (auto) (1.0 - 4.8 x10 3/uL) 1.31 Absolute Monos (auto) (0.0 - 0.8 x10 3/uL) 1.00 H Absolute Nucleated RBC (0.0 - 0.2 X10 3/uL) 0.0 Immature Gran % (0.0 - 2.0 %) 0.5 Nucleated RBC % (0.0 - 0.0 %) 0.0 Miscellaneous Miscellaneous Test Called Recent Impressions: CAT SCAN - CT LOWER EXTRM W/CON RT 09/25 0740 Report Impression - Status: SIGNED Entered: 09/25/2018 0835 IMPRESSION: 1. Large hematoma located within the subcutaneous fat of the medial calf measuring 10.0 x 6.6 x 15.3 cm. 2. Active extravasation of blood into the hematoma from a small superficial artery or vein, located along the deep aspect of the hematoma. Discussed with Dr. Hercules over the phone at the time of dictation. Impression By: KellenMMCCas Dallas MD at 0852 RPT #:[id number] END OF REPORT [facility] 2018-09-25 08:35:00 [facility] ([facility]) Clinical Note REPORT#:[id number] REPORT STATUS: Signed DATE:09/25/18 TIME: 834 PATIENT: GABBIE CASTANEDA UNIT #: [id number] ROOM/BED: [place] [address] : 42 AGE: 78 SEX: F ATTEND: Denton Masterson MD ADM AUTHOR: Carmen Nelson * ALL edits or amendments must be made on the electronic/computer document * Carmen Nelson 09/25/18 0835: Clinical Note Note: TRAUMA SURGERY CONSULT ASSESSMENT: Primary Diagnosis Mechanism: Same Height Fall Injuries: RLE Hematoma Acute Active Problems: Anticoagulation use, Xeralto Elevated INR 2.29 CKD Anemia HGB 10.4 Resolved Problems: n/a. Chronic Medical Problems: DVT, PE, HTN, HLD, COPD/asthma DVT Prophylaxis: SCDs GI Prophylaxis: n/a FEN: NPO Lines Ernandez ETT (placement dates): n/a Consultants: n/a Procedures: n/a PLAN: Agree to admission. Admit to Internal medicine service. Tranfuse 2 U FFP NOW, and then hold 2 U PRBC. Will take to OR for incision, exploration and debridement of right lower extremity hematoma. Hold anticoagulation. NPO. Admit to medical/surgical unit. Indications for procedure as well as risks and benefits of procedures discussed with patient including pain, infection, bleeding, blood clots, , need for additional surgery, poor wound healing and/or injury to surrounding structures/ vessels/tissue/nerves. Written consent obtained. ___ The patient was seen in ED at the request of Dr. Hercules CHIEF COMPLAINT: RLE pain HPI: Patient is a 78 F who presented to [facility] ED due to CC of RLE pain and hematoma. She states that about 3 days ago. This was a same height fall and she presented to [facility] ED at that time for evaluation in which CT head and XR RLE was performed and she was discharged home. At that time she had about a 7 cm contusion/hematoma to her RLE. She presented again today due to increased pain to her RLE as well as increased size of the hematoma. She takes Xeralto at home due to hx of DVT/VTE. She last took her Xeralto last night. She denies CP, SOB. She states that she use to take Eliquis which was started during her admission for her DVT/PE but states that she was changed to Xeralto recently due to "my kidney function". Her INR is elevated but she states that she does not, and has not taken Coumadin. PAST MEDICAL HISTORY: as above PAST SURGICAL HISTORY: hysterectomy, cholecystectomy, arthroscopy SOCIAL HISTORY: former tobacco. occassional EtOH. no recreational drug use ALLERGIES: Sulfa, PCN, ASA, iodine, codeine MEDICATIONS: Home Medications: Medication Dose/Rte/Freq Days Qty Entered Last Max Daily Dose Reviewed POTASSIUM CHLORIDE ER 20 MEQ PO 07/09/17 09/25/18 (KLOR-CON M20) DAILY 1799 1626 623 Strength: 20 MEQ TAB.SR amLODIPine (NORVASC) 10 MG PO DAILY 179907/09/17 09/25/18 Strength: 10 MG TAB 16212 2424 FUROSEMIDE (LASIX) 20 MG PO DAILY 179907/09/17 09/25/18 Strength: 20 MG TAB 16201 2424 predniSONE 3 MG PO DAILY 07/09/17 09/25/18 Strength: 1 MG TAB 18511 2424 VALSARTAN (DIOVAN) 320 MG PO DAILY 07/09/17 09/25/18 Strength: 320 MG TAB 1857 0624 ALLOPURINOL (ZYLOPRIM) 300 MG PO DAILY 07/10/17 09/25/18 Strength: 300 MG TAB 1849 0624 HYDROcodone/APAP 1 TAB PO 07/10/17 09/25/18 (NORCO 10/325) TID PRN PAIN 1856 0624 Strength: 1 TAB TAB METOPROLOL SUCC XL 100 MG PO DAILY 07/10/17 09/25/18 (TOPROL XL) 1858 0624 Strength: 100 MG TAB.SA [PAPAYA ENZYME] CHEW 4 TABS DAILY 07/10/17 09/25/18 Strength: 4 TABS CAP.CHEW 1909 0624 MAG CARB/AL HYDROX 2 TABS PO Q12H 07/10/17 09/25/18 (GAVISCON 358-95 1912 0624 MG/15ML) Strength: 355 ML ORAL.SUSP APIXABAN (ELIQUIS) 5 MG PO ASDIR 180 07/15/17 09/25/18 Strength: 5 MG TAB [address] 40 MG PO DAILY 30 07/15/17 09/25/18 (PROTONIX) 1330 0624 Strength: 40 MG TAB. Current Hospital Medications: Central Nervous System Agents Sig/Joanne Start time Last Medication Dose Route Stop Time Status Admin Fentanyl Citrate 50 MCG ONCE ONE 09/25 0800 DC 09/25 (SUBLIMAZE 100MCG/ IV 09/25 08 0801 2ML INJECTION) Morphine Sulfate 4 MG X1ED STA 09/25 629 DCr 09/25 (morphine SULFATE) IV 09/25 0631 0637 Diagnostic Agents Sig/Joanne Start time Last Medication Dose Route Stop Time Status Admin Iopamidol 0 .STK-MED ONE 09/25 0637 DCr 09/25 (ISOVUE-300) IV 0744 Gastrointestinal Drugs Sig/Joanne Start time Last Medication Dose Route Stop Time Status Admin Ondansetron HCl 4 MG X1ED STA 09/25 629 DC 09/25 (ZOFRAN 4 MG/2 ML) IV 09/25 0631 0637 ROS: Pertinent positives and negatives as above, otherwise negative for the respective garcia for the following: Neuro, eyes, ENT, CV, resp, GI, musculoskeletal, , skin, psychiatric ___ PHYSICAL EXAM: General: Well developed, well nourished in NAD. 4 point vital signs reviewed Head/Eyes: Atraumatic, normocephalic. No periorbital ecchymosis. Cornea and conjunctiva clear. EOMI with no nystagmus. pupils 3 mm in size and reactive ENT: Midface stable. No malocclusion or crepitus. Normal dentition. Nose atraumatic with no rhinorrhea or epistaxis; no septal hematoma. Ears atraumatic without hemotympanum. No mastoid ecchymosis Neck: No anterior hematomas. no tracheal deviation. no carotid bruits. No JVD CV: Regular rate and rhythm. No murmur, rubs or gallops. No edema.Rad pulses +2, DP pulses 2+ Pulmonary/chest: CTA and equal bilaterally. No respiratory distress. No bruising, crepitus or subcutaneous emphysema ABD: + BS. Soft, nontender. No guarding or rebound. No distention. No abdominal bruit or masses. No ecchymosis noted to external abdomen or flank : Normal external genitalia. No blood at meatus. normal rectal tone MSK: o Digits: Non-tender to palpation. No clubbing. No cyanosis. Capillary refill <2 secs o Joints, bone and muscle: - Pelvis: Stable to anterior stress - Extremities: o Nontender to palpation with no observed deformities x 4. Normal ROM x 4. - Cervical Spine: no midline tenderness or gross step off. Full ROM without pain. - Thoracic/Lumbar Spine: Atraumatic with normal alignment. 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 There is a 51.5 cm hematoma noted to right lower lateral leg. ___ LABS: Reviewed. RADIOLOGY: I have reviewed the images and reports personally. Laboratory Tests: 09/25 0628 Chemistry Sodium (133 - 145 MMOL/L) 142 Potassium (3.6 - 5.2 MMOL/L) 4.4 Chloride (100 - 108 MMOL/L) 104 Carbon Dioxide (22 - 32 MMOL/L) 30 BUN (6 - 20 MG/DL) 27 H Creatinine (0.60 - 1.00 MG/DL) 1.16 H Estimated GFR (MDRD) (39 - 90) 45 Glucose (65 - 99 MG/DL) 134 H Calcium (8.7 - 10.5 MG/DL) 9.2 Coagulation PT (9.6 - 12.3 SECONDS) 26.3 *H INR 2.29 APTT (22.5 - 35.3 SECONDS) 40.7 H Hematology WBC (4.80 - 10.80 x10 3/uL) 10.47 RBC (4.2 - 5.4 x10 6/uL) 3.58 L Hgb (12.0 - 16.0 G/DL) 10.4 L Hct (37 - 47 %) 33.1 L MCV (81 - 99 FL) 92.5 MCH (27 - 31 PG) 29.1 MCHC (33 - 37 G/DL) 31.4 L RDW Coeff of Skylar (11.5 - 14.5 %) 14.4 Plt Count (150 - 450 x10 3/uL) 257 MPV (7.4 - 10.4 FL) 11.2 H Neut % (Auto) (42 - 86 %) 75.3 Lymph % (Auto) (24 - 44 %) 12.5 L [place] % (Auto) (0.0 - 4.0 %) 9.6 H Eos % (Auto) (0.0 - 2.7 %) 1.6 Baso % (Auto) (0.0 - 0.5 %) 0.5 Eos # (Auto) (0.0 - 0.5 x10 3/uL) 0.17 Baso # (Auto) (0.0 - 0.2 x10 3/uL) 0.05 Abs Immat Gran (auto) (0.00 - 0.03 x10 3/uL) 0.05 H Absolute Neuts (auto) (1.8 - 7.7 x10 3/uL) 7.89 H Absolute Lymphs (auto) (1.0 - 4.8 x10 3/uL) 1.31 Absolute Monos (auto) (0.0 - 0.8 x10 3/uL) 1.00 H Absolute Nucleated RBC (0.0 - 0.2 X10 3/uL) 0.0 Immature Gran % (0.0 - 2.0 %) 0.5 Nucleated RBC % (0.0 - 0.0 %) 0.0 Miscellaneous Miscellaneous Test Called Recent Impressions: CAT SCAN - CT LOWER EXTRM W/CON RT 09/25 0740 Report Impression - Status: SIGNED Entered: 09/25/2018 4816 IMPRESSION: 1. Large hematoma located within the subcutaneous fat of the medial calf measuring 10.0 x 6.6 x 15.3 cm. 2. Active extravasation of blood into the hematoma from a small superficial artery or vein, located along the deep aspect of the hematoma. Discussed with Dr. Hercules over the phone at the time of dictation. Impression By: [email or web address] - Marlene Singh MD. 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 The patient was interviewed and examined by me. HPI: 78-year-old female who fell while on Xarelto a few days ago. She has an expanding hematoma over the right medial calf that is very painful. My personal exam reveals: A obese woman with a large subcutaneous hematoma with tense and necrotic overlying skin. Marked tenderness noted on exam. Normal capillary refill to the right foot. I agree with the assessment and care plan, and confirm the diagnosis(es) above. ASSESSMENT PLAN: 78-year-old female with traumatic subcu continuous hematoma of the right calf with active extravasation on imaging. She will require reversal with FFP and OR today for evacuation of hematoma and control of bleeding. at 0852 at 1145 RPT #:[id number] END OF REPORT [facility] 2018-09-25 06:22:00 [facility] ([facility]) OR A CAMPUS OF [facility] EMERGENCY PROVIDER REPORT REPORT#:[id number] REPORT STATUS: Signed DATE:09/25/18 TIME: 621 PATIENT: GABBIE CASTANEDA UNIT #: [id number] ROOM/BED: Y314-1 AGE: 78 SEX: F PCP PHYS: Chele Bass MD SERVICE AUTHOR: Luke Hercules DO * ALL edits or amendments must be made on the electronic/computer document * HPI-Extremity Prob Lower General Confirmed Patient Yes Patient Type Existing patient Initial Greet Date/Time 09/25/18 06 Presentation Chief Complaint Leg problem R Hx Obtained From Patient Onset Occurred Days ago (2) Symptom Duration Since onset Progression since Onset Gradually worsening Caused by Fall on ground Timing of Trauma Date of Trauma 09/23/18 Time of Trauma 1700 Location Leg R Quality Painful Severity: Onset Mild Severity: Current Pain level 10 out of 10 Associated with Denies: Fever. Associated Other Pt denies other symptoms Exacerbated by Nothing Relieved by Nothing Free Text HPI Notes Free Text HPI Notes 78F w/ PMHx of arthritis, AFIB, HTN, and GOUT presents to the ED w/ a hematoma to her medial RLE. Pt states that sx began Wednesday after a fall on the ground September 23 where she was seen in the ED and d/c home w/ dx of hematoma. She rates the pain at 10/10 even w/ taking hydrocodone. She takes 1 xerelto at night and took one last night. She states that the hematoma has been gradually worsening. Portions of this section were scribed by Ariana Webb on 09/25/18 at 1434 Review of Systems ROS Statements All systems rev neg except as marked. Focused Review of Systems Constitutional Denies: Chills, Fever, Weakness - generalized. Musculoskeletal Reports: Extremity pain. Denies: Back pain, Joint pain, Neck pain. Skin Reports: Contusion, Erythema, Swelling. Denies: Diaphoresis. Neurologic Denies: Headache, Lightheaded. Additional Review of Systems Hematologic Reports: Bruising. Denies: Petechiae. Portions of this section were scribed by Ariana Webb on 09/25/18 at 0622 Past Medical History - Adult Stated Complaint BLISTER TO RT LOWER EXTREMITY GROWING Allergies Coded Allergies: Sulfa (Sulfonamide Antibiotics) (Mild, BLISTERS 02/05/17) iodine (Mild, ITCHING, SCRATCHING 07/09/17) penicillin G (Mild, PASSESS OUT 07/09/17) aspirin (Mild, UPSET STOMACH 02/05/17) codeine (Mild, HEADACHE 02/05/17) Home Medications Active Scripts APIXABAN (ELIQUIS) 5 MG PO ASDIR APIXABAN (ELIQUIS) 5 MG PO ASDIR #180 TABS Prov: 07/15/[address] (PROTONIX) 40 MG PO DAILY PANTOPRAZOLE DR (PROTONIX) 40 MG PO DAILY #30 TAB Prov: 07/15/17 Reported Medications POTASSIUM CHLORIDE ER (KLOR-CON M20) 20 MEQ PO DAILY 1800 amLODIPine (NORVASC) 10 MG PO DAILY 1800 FUROSEMIDE (LASIX) 20 MG PO DAILY 1800 predniSONE 3 MG PO DAILY VALSARTAN (DIOVAN) 320 MG PO DAILY ALLOPURINOL (ZYLOPRIM) 300 MG PO DAILY HYDROcodone/APAP (NORCO 10/325) 1 TAB PO TID PRN PAIN METOPROLOL SUCC XL (TOPROL XL) 100 MG PO DAILY [PAPAYA ENZYME] MAG CARB/AL HYDROX (GAVISCON 358-95 MG/15ML) 2 TABS PO Q12H Review of Nursing Notes Rev avail, and agree Past Medical History: Reports: Arthritis (Rheumatoid, on low dose predni), Atrial fib/flutter ( hyperthyroidism, 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 Additional Medical History Gout (refuses allopurinol), panic disorder, anemia, colonoscopy 3 years ago (large polyp, to return in 3 years, Dr. Sanchez), EGD 3 years ago (Dr. Sanchez), hemorrhoids Past Surgical History: Reports: Cholecystectomy, Hysterectomy. 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 Portions of this section were scribed by Ariana Webb on 09/25/18 at 0622 Physical Exam Vital Signs Vital Signs First Documented: Result Date Time Pulse Ox 98 09/25 618 B/P 178/72 09/25 618 B/P Mean 107 09/25 0519 O2 Delivery Room air 09/25 618 Temp 36.5 09/25 618 Pulse 61 09/25 0519 Resp 18 09/25 618 Last Documented: Result Date Time Pulse Ox 99 09/25 1000 B/P 139/64 09/25 1000 Temp 37.1 09/25 1000 Pulse 59 / 1000 Resp 18 09/25 1000 B/P Mean 89 09/25 0941 O2 Delivery Room air 09/25 618 Review of Vital Signs Reviewed Focused PE General/Const General/Const Awake, Alert, No acute distress, Well appearing Resp/Chest Respiratory/Chest Atraumatic, Breath sounds NL, Breath sounds = bilat, No respiratory distress Cardiovascular Cardiovascular Heart rate NL, Regular rhythm, Heart sounds NL, No gallop, No murmurs, No rubs MS Lower Extrem Lower Ext/Pelvis/MS Full range of motion, Neurologic intact, Vascular intact, No ligamentous injury Right Leg/Calf Swelling present, Tenderness present, Erythema present. Negative: Pulses distal absent, Neuro deficit present. Trauma/Burn/Environmental Hematoma ([id number]) MS Ankle/Foot Ankle/Foot Atraumatic, Inspection NL, Full range of motion, No swelling, No erythema, Neurologic intact, Vascular intact, No ligamentous injury Skin Skin Color NL, No rash, Warm, Dry, Intact, Turgor NL, No swelling Neurologic Neurologic Oriented X3, Speech NL, No motor deficits, No sensory deficits, CN II - XII intact Portions of this section were scribed by Ariana Webb on 09/25/18 at 1434 Interpretation Diagnostics Lab Results Interpretation Considerations Independ review imaging, Reviewed prior records Results Laboratory Tests 09/25/1828: [Embedded Image Not Available] Laboratory Tests: 09/26 627 Chemistry Sodium (133 - 145 MMOL/L) 142 Potassium (3.6 - 5.2 MMOL/L) 4.4 Chloride (100 - 108 MMOL/L) 104 Carbon Dioxide (22 - 32 MMOL/L) 30 BUN (6 - 20 MG/DL) 27 H Creatinine (0.60 - 1.00 MG/DL) 1.16 H Estimated GFR (MDRD) (39 - 90) 45 Glucose (65 - 99 MG/DL) 134 H Calcium (8.7 - 10.5 MG/DL) 9.2 Coagulation PT (9.6 - 12.3 SECONDS) 26.3 *H INR 2.29 APTT (22.5 - 35.3 SECONDS) 40.7 H Hematology WBC (4.80 - 10.80 x10 3/uL) 10.47 RBC (4.2 - 5.4 x10 6/uL) 3.58 L Hgb (12.0 - 16.0 G/DL) 10.4 L Hct (37 - 47 %) 33.1 L MCV (81 - 99 FL) 92.5 MCH (27 - 31 PG) 29.1 MCHC (33 - 37 G/DL) 31.4 L RDW Coeff of Skylar (11.5 - 14.5 %) 14.4 Plt Count (150 - 450 x10 3/uL) 257 MPV (7.4 - 10.4 FL) 11.2 H Neut % (Auto) (42 - 86 %) 75.3 Lymph % (Auto) (24 - 44 %) 12.5 L [place] % (Auto) (0.0 - 4.0 %) 9.6 H Eos % (Auto) (0.0 - 2.7 %) 1.6 Baso % (Auto) (0.0 - 0.5 %) 0.5 Eos # (Auto) (0.0 - 0.5 x10 3/uL) 0.17 Baso # (Auto) (0.0 - 0.2 x10 3/uL) 0.05 Abs Immat Gran (auto) (0.00 - 0.03 x10 3/uL) 0.05 H Absolute Neuts (auto) (1.8 - 7.7 x10 3/uL) 7.89 H Absolute Lymphs (auto) (1.0 - 4.8 x10 3/uL) 1.31 Absolute Monos (auto) (0.0 - 0.8 x10 3/uL) 1.00 H Absolute Nucleated RBC (0.0 - 0.2 X10 3/uL) 0.0 Immature Gran % (0.0 - 2.0 %) 0.5 Nucleated RBC % (0.0 - 0.0 %) 0.0 Miscellaneous Miscellaneous Test Called Recent Impressions: CAT SCAN - CT LOWER EXTRM W/CON RT 09/25 0740 Report Impression - Status: SIGNED Entered: 09/25/2018 0835 IMPRESSION: 1. Large hematoma located within the subcutaneous fat of the medial calf measuring 10.0 x 6.6 x 15.3 cm. 2. Active extravasation of blood into the hematoma from a small superficial artery or vein, located along the deep aspect of the hematoma. Discussed with Dr. Hercules over the phone at the time of dictation. Impression By: [facility] - Zhou [place] MD Lab Imaging Statement Laboratory radiographic studies reviewed and considered in the medical decision-making. Point of Care Testing Pulse Oximetry Pulse Ox % 99 On: Room air Interpretation Interpreted by me, Pulse oximetry normal Time 0941 Portions of this section were scribed by Ariana Webb on 09/25/18 at 1434 Re-Evaluation MDM Re-Evaluation/Progress Re-Evaluation/Progress Text/Dict Note Pt's [facility] from the [facility] states that there was a 7cm x 8cm hematoma on her L calf rather than her R. After Dr. Taylor spoke to the pt, she is informed that she will be admitted to the hospital for tx and further evaluation. Time of Re-Eval 1025 Re-Eval Status Unchanged ED Course Medication(s) Ordered Medication(s) Ordered: Central Nervous System Agents Sig/Joanne Start time Last Medication Dose Route Stop Time Status Admin Fentanyl Citrate 50 MCG ONCE ONE 09/25 0835 DC / IV 09/25 0836 0940 Fentanyl Citrate 50 MCG ONCE ONE 09/25 08 DC / IV 09/25 0801 0801 Morphine Sulfate 4 MG X1ED STA 09/25 0530 DCr 09/25 IV 09/25 0531 0637 Diagnostic Agents Sig/Joanne Start time Last Medication Dose Route Stop Time Status Admin Iopamidol 0 .STK-MED ONE 09/25 0637 DCr 09/25 IV 0744 Gastrointestinal Drugs Sig/Joanne Start time Last Medication Dose Route Stop Time Status Admin Ondansetron HCl 4 MG X1ED STA 09/25 0530 DC 09/25 IV 09/25 0531 0637 Consultation Consultation Referral/Consult Name Marlene Taylor MD Stemhole Borer And Topper Called General Surgery Requested Call Time 0849 Requested Call Date 09/25/18 Call Returned Call returned Call Returned Time 0849 Call Returned Date 09/25/18 Stemhole Borer And Topper Will see patient Free Text Consult Notes Dr. Taylor evaluated pt and recommends admission to medicine. Portions of this section were scribed by Ariana Webb on 09/25/18 at 1025 Patient Discharge Departure Vital Signs/Condition Vital Signs First Documented: Result Date Time Pulse Ox 98 09/25 0519 B/P 178/72 09/25 0519 B/P Mean 107 09/25 0619 O2 Delivery Room air 09/25 0519 Temp 36.5 09/25 0519 Pulse 61 / 0619 Resp 18 09/25 0519 Last Documented: Result Date Time Pulse Ox 99 / 1000 B/P 139/64 / 1000 Temp 37.1 / 1000 Pulse 59 04/ 1000 Resp 18 / 1000 B/P Mean 89 09/25 0941 O2 Delivery Room air 09/25 618 All vital signs available at the time of this entry have been reviewed. Condition Stable Clinical Impression Clinical Impression Primary Impression: RAPIDLY EXPANDING HEMATOMA OF RIGHT LOWER EXTREMITY Disposition Decision Admit Admit Physician Name Sadiq Bates DO Admit Physician Hospitalist Request Time 1110 Request Date 09/25/18 )( Admission Accepts Yes )( Accepted Time 1117 )( Accepted Date 09/25/18 Call Information will see patient, agrees with eval, agrees with plan Discharge/Care Plan Counseled Regarding Diagnosis, Lab results, Imaging studies, Need for admission, Need for follow-up, When to return to ED Admit Note I have spoken with the patient and/or caregivers. I have explained the patient's condition, diagnoses and treatment plan based on the information available to me at this time. I have answered the patient's and/or caregiver's questions and addressed any concerns. The patient and/or caregivers have as good an understanding of the patient's diagnosis, condition and treatment plan as can be expected at this point. The patient has been stabilized within the capability of the emergency department. The patient will be transported for further care and management or will be moved to an observation or inpatient service. I have communicated with the staff or medical practitioner taking over this patient's care. Quality Measures BP F/U for HTN F/u with PCP/other doc, Pre-existing HTN Supervising Physician Note Scribe Statement Ariana Webb, 09/25/18 0626, scribing for and in the presence of Dr. Hercules. Signed By: Ariana Webb, 09/25/18 0626 Portions of this section were scribed by Ariana Webb on 09/25/18 at 1025 at 0633 RPT #:[id number] END OF REPORT [facility] 2018-09-23 18:46:00 [facility] ([facility] [facility] REPORT REPORT#:[id number] REPORT STATUS: Signed DATE:09/23/18 TIME: 1845 PATIENT: GABBIE CASTANEDA UNIT #: [id number] ROOM/BED: AGE: 78 SEX: F PCP PHYS: Chele Bass MD SERVICE AUTHOR: Luke Dominguez MD * ALL edits or amendments must be made on the electronic/computer document * HPI-Head Prob/Injury General Confirmed Patient Yes Patient Type New patient Initial Greet Date/Time 09/23/18 1840 Presentation Chief Complaint Blunt head trauma, Fall Hx Obtained From Patient )( Onset Occurred Sudden Symptom Duration Since onset Progression since Onset Unchanged Quality Painful Severity: Onset Mild Severity: Current Moderate Associated with Reports: Headache. Denies: Abdominal pain, Chest pain, Nausea. Associated Other Pt denies other symptoms Free Text HPI Notes Free Text HPI Notes 78F patient presents to the ED complaining of headache. Pt states that she was walling in her backyard and tripped over a tree root and hit her head on side of house. Pt reports headache and denies n/v/d, chills, cough, fever and any other sxs. Portions of this section were scribed by Darrin Berry on 09/23/18 at 2129 Risk-Head Prob/Injury Risk Stratification )( Kristofer Coma Score > Age 5 )( Kristofer Coma Score > Age 5 Response Value Eye Opening Open spontaneously (4) 4 Verbal Response Oriented (5) 5 Motor Response Obeys commands (6) 6 Total 15 Review of Systems ROS Statements All systems rev neg except as marked. Focused Review of Systems Constitutional Denies: Chills, Fever. GI Denies: Abdominal pain, Diarrhea, Nausea, Vomiting. Skin Reports: Abrasion. Portions of this section were scribed by Darrin Berry on 09/23/18 at 1853 Past Medical History - Adult Stated Complaint FELL 1 HR AGO ON BLOOD THINNERS NO CUTS BRUISED Allergies Coded Allergies: Sulfa (Sulfonamide Antibiotics) (Mild, BLISTERS 02/05/17) iodine (Mild, ITCHING, SCRATCHING 07/09/17) penicillin G (Mild, PASSESS OUT 07/09/17) aspirin (Mild, UPSET STOMACH 02/05/17) codeine (Mild, HEADACHE 02/05/17) Home Medications Active Scripts APIXABAN (ELIQUIS) 5 MG PO ASDIR APIXABAN (ELIQUIS) 5 MG PO ASDIR #180 TABS Prov: 07/15/[address] (PROTONIX) 40 MG PO DAILY PANTOPRAZOLE DR (PROTONIX) 40 MG PO DAILY #30 TAB Prov: 07/15/17 Reported Medications POTASSIUM CHLORIDE ER (KLOR-CON M20) 20 MEQ PO DAILY 1800 amLODIPine (NORVASC) 10 MG PO DAILY 1800 FUROSEMIDE (LASIX) 20 MG PO DAILY 1800 predniSONE 3 MG PO DAILY VALSARTAN (DIOVAN) 320 MG PO DAILY ALLOPURINOL (ZYLOPRIM) 300 MG PO DAILY HYDROcodone/APAP (NORCO 10/325) 1 TAB PO TID PRN PAIN METOPROLOL SUCC XL (TOPROL XL) 100 MG PO DAILY [PAPAYA ENZYME] MAG CARB/AL HYDROX (GAVISCON 358-95 MG/15ML) 2 TABS PO Q12H Review of Nursing Notes Rev avail, and agree Past Medical History: Reports: Arthritis (Rheumatoid, on low dose predni), Atrial fib/flutter ( hyperthyroidism, 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 Additional Medical History Gout (refuses allopurinol), panic disorder, anemia, colonoscopy 3 years ago (large polyp, to return in 3 years, Dr. Sanchez), EGD 3 years ago (Dr. Sanchez), hemorrhoids Past Surgical History: Reports: Cholecystectomy, Hysterectomy. 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, [employer] Portions of this section were scribed by Darrin Berry on 09/23/18 at 1853 Physical Exam Vital Signs Vital Signs First Documented: Result Date Time Pulse Ox 100 09/23 1833 B/P 164/72 09/23 1833 B/P Mean 102 09/23 1833 Temp 98.2 09/23 1833 Pulse 56 09/23 1833 Resp 16 09/23 1833 Last Documented: Result Date Time Pulse Ox 100 09/23 1948 B/P 174/77 09/23 1948 B/P Mean 109 09/23 1948 Temp 97.7 09/23 1948 Pulse 58 09/23 1948 Resp 20 09/23 1948 Review of Vital Signs Reviewed Focused PE General/Const General/Const Awake, Alert, No acute distress, Cooperative, Not toxic appearing Appearance/Presentation Obese. MS Head Text/Dict Notes Minimal abrasion over left quaker parietal otherwise normal. Eyes Eyes Atraumatic, PERRL, EOMI Ears/Nose/Throat Ears/Nose/Throat Atraumatic, Airway patent, Mucous membranes moist, Pharynx NL MS Neck Neck Atraumatic, Supple, No meningismus, Full range of motion, No adenopathy, No swelling, Non-tender Resp/Chest Respiratory/Chest Atraumatic, Breath sounds NL, Breath sounds = bilat, No respiratory distress, No rales, No rhonchi, No wheezing Cardiovascular Cardiovascular Heart rate NL, Regular rhythm, Heart sounds NL, No gallop, No murmurs, No rubs MS Upper Extrem Upper Extremity/MS Atraumatic, Inspection NL, Full range of motion, No swelling, Non-tender MS Lower Extrem Text/Dict Notes 7x8 cm hematoma over lateral LLE Faint ecchymosis over lateral knee compartment of left leg. Skin Text/Dict Notes 7x8 cm hematoma over lateral LLE Faint ecchymosis over lateral knee compartment of left leg. Neurologic Neurologic Oriented X3, Speech NL, No motor deficits, No sensory deficits, CN II - XII intact, Reflexes equal bilat Psychiatric Psychiatric Affect NL, Mood NL Portions of this section were scribed by Darrin Berry on 09/23/18 at 2129 Interpretation Diagnostics Lab Results Interpretation Results Recent Impressions: CAT SCAN - CT C-SPINE W/O CONT 09/23 1899 Report Impression - Status: SIGNED Entered: 09/23/20181937 IMPRESSION: No acute bony abnormality Impression By: Manan Johnson MD CAT SCAN - CT HEAD/BRAIN W/O CONT 09/23 1899 Report Impression - Status: SIGNED Entered: 09/23/20181935 IMPRESSION: Atrophic and microvascular ischemic changes, no acute intracranial abnormality Impression By: Manan Johnson MD RADIOLOGY - XR KNEE 4+V LT 09/23 1924 Report Impression - Status: SIGNED Entered: 09/23/20181950 IMPRESSION: Left knee replacement Impression By: Manan Johnson MD RADIOLOGY - XR ANKLE 3+V LT 09/23 1924 Report Impression - Status: SIGNED Entered: 09/23/20181950 IMPRESSION: No acute abnormality Impression By: Manan Johnson MD Imaging Statement Radiographic studies reviewed and considered in the medical decision-making. Portions of this section were scribed by Darrin Berry on 09/23/18 at 2129 Re-Evaluation MDM Free Text MDM Notes Free Text MDM Notes differential diagnoses: closed head injury ED Course Medication(s) Ordered Medication(s) Ordered: Central Nervous System Agents Sig/Joanne Start time Last Medication Dose Route Stop Time Status Admin Hydrocodone Bitart/ 1 TAB X1ED STA 09/23 2114 DCr 09/23 Acetaminophen PO 09/23 Acetaminophen 1,000 MG X1ED STA 09/23 2029 DC 09/23 PO 09/23 Portions of this section were scribed by Darrin Berry on 09/23/18 at 2129 Patient Discharge Departure Vital Signs/Condition Vital Signs First Documented: Result Date Time Pulse Ox 100 09/23 1833 B/P 164/72 09/23 1833 B/P Mean 102 09/23 1833 Temp 98.2 09/23 1833 Pulse 56 09/23 1833 Resp 16 09/23 1833 Last Documented: Result Date Time Pulse Ox 100 09/23 1948 B/P 174/77 09/23 1948 B/P Mean 109 09/23 1948 Temp 97.7 09/23 1948 Pulse 58 09/23 1948 Resp 20 09/23 1948 All vital signs available at the time of this entry have been reviewed. Condition Stable Clinical Impression Clinical Impression Primary Impression: Musculoskeletal pain Secondary Impressions: Opioid dependence Disposition Decision Discharge )( Discharged to Home Yes )( Time 2128 )( Date 09/23/18 Discharge/Care Plan Counseled Regarding Diagnosis, Imaging studies, Need for follow-up, When to return to ED Discharge Note I have spoken with the patient and/or caregivers. I have explained the patient's condition, diagnoses and treatment plan based on the information available to me at this time. I have answered the patient's and/or caregiver's questions and addressed any concerns. The patient and/or caregivers have as good an understanding of the patient's diagnosis, condition and treatment plan as can be expected at this point. The vital signs have been stable. The patient's condition is stable and appropriate for discharge from the emergency department. The patient will pursue further outpatient evaluation with the primary care physician or other designated or consulting physician as outlined in the discharge instructions. The patient and/or caregivers are agreeable to this plan of care and follow-up instructions have been explained in detail. The patient and/or caregivers have received these instructions in written format and have expressed an understanding of the discharge instructions. The patient and/or caregivers are aware that any significant change in condition or worsening of symptoms should prompt an immediate return to this or the closest emergency department or a call to 911. Supervising Physician Note Scribe Statement Darrin Berry, 09/23/182129, scribing for and in the presence of [Dr. Dominguez]. Signed By: Darrin Berry, 09/23/182129 Provider Scribed Statement I personally performed the services described in this documentation and reviewed the documentation that was dictated to the scribe(s) in my presence, and it accurately records my words and actions. Luke Dominguez, 09/24/18 Portions of this section were scribed by Darrin Berry on 09/23/18 at 4974 at 0981 [facility] #:[id number] END OF REPORT [facility]
[2024-10-13 12:50] LABS: Absolute Eosinophils 0.1 K/uL (0-0.5); Absolute Lymphocytes (CBC) 0.9 K/uL (0.7-4.9); Absolute Monocytes 0.7 K/uL (0.1-1.3); Absolute Neutrophil 4.7 K/uL (1.8-8.0); Basophils % 0.7 % (0-1.3); Eosinophils % 2.3 % (0-4.4); Hematocrit 35.6 % (36.0-45.0); Hemoglobin 11.9 g/dL (12.0-15.0); Lymphocytes % 13.7 % (15.3-44.8); MCHC 33.5 g/dL (32.0-36.0); MCV 89.5 fL (80-100); MPV 9.7 fL (7.6-11.3); Monocytes % 11.2 % (3.3-12.3); Neutrophils % 72.1 % (41.7-73.7); Nucleated Red Blood Cells % 0.1 % (0-0); Platelets 194 thou/uL (152-406); RBC Red Blood Cell Count 3.97 M/uL (3.86-4.86); Red Cell Distribution Width 16.8 % (12.1-15.2)
[2024-10-13] MEDS ORDERED: ALBUTEROL 2.5 MG/3 ML NEB SOL ONE (12:55)
[2024-10-13] MEDS ORDERED: IPRATROPIUM BROM 0.5MG/2.5ML ONE (12:55)
[2024-10-13] MEDS ORDERED: FUROSEMIDE 40 MG/4 ML VIAL ONE (12:56)
[2024-10-13 13:03] LABS: Influenza A Ag Negative; Influenza B Ag Negative; SARS-CoV-2 Antigen Rapid Res Negative (Negative)
[2024-10-13 13:12] LABS: Albumin 2.8 g/dL (3.4-5.0); Albumin/Globulin Ratio 0.8 (1.1-1.8); Anion Gap 11.8 mEq/L (5.0-15.0); Bilirubin Direct 0.4 mg/dL (0-0.2); Bilirubin Indirect, Calculated 0.7 mg/dL (0.2-0.8); Bilirubin Total 1.1 mg/dL (0.2-1.0); Globulin 3.5 g/dL (2.3-3.5); Magnesium 2.1 mg/dL (1.6-2.4); Potassium 3.8 mEq/L (3.5-5.1); Protein, Total 6.3 g/dL (6.4-8.2); Troponin High Sensitivity 33.9 pg/mL (<58.9)
--- NOTE | 2024-10-13 14:13 | RAD REPORT ---
EXAMINATION: ONE VIEW CHEST XR CLINICAL INDICATION: Female, 84 years old.,DYSPNEA TECHNIQUE: Frontal chest projection is submitted. Examination is limited by patient positioning and t echnique. COMPARISON: No prior exam. FINDINGS: The lungs are well inflated and central interstitial prominence with left more than right basilar ple uroparenchymal opacification with mild effusions. No pneumothorax or other sizable effusion. The heart is normal in size. Mediastinal contours are unremarkable. IMPRESSION: Findings of central congestion which may relate to CHF or pulmonary edema.
--- NOTE | 2024-10-13 14:14 | RAD REPORT ---
EXAMINATION: XR Hip Right 2 View CLINICAL INDICATION: Female, 84 years old. [facility] MAIN PAIN Bed Name: 10 TECHNIQUE: 2 view radiograph of the right hip were obtained. COMPARISON: No prior exam. FINDINGS: No evidence of fracture or dislocation. Normal alignment. Mild to moderate right hip degene rative changes. No other focal bone lesion. Soft tissues are unremarkable. IMPRESSION: No acute osseous abnormalities. Mild to moderate right hip degenerative changes.
--- NOTE | 2024-10-13 14:15 | RAD REPORT ---
EXAMINATION: XR Foot Left 3 View CLINICAL INDICATION: Female, 84 years old. [facility] MAIN PAIN Bed Name: TECHNIQUE: 3 view radiographs of the left foot were obtained. COMPARISON: No prior exam. FINDINGS: No evidence of fracture or dislocation. Normal alignment. Diffuse osteopenia. Up to moderat e degenerative changes most notably at the first metatarsophalangeal articulation with mild hallux valgus deformity. Small calcaneal spur. No soft tissue swelling. Vascular calcifications. IMPRESSION: No acute osseous abnormalities. Degenerative changes as above.
[2024-10-13 14:49] LABS: Specific Gravity 1.009 (1.005-1.030); Sqamous Epithelial <5 /HPF (None Seen); Urine Bacteria <20 /HPF (<20); Urine Bilirubin NEGATIVE (Negative); Urine Blood Negative (Negative); Urine Clarity Clear (Clear); Urine Color Colorless (Yellow); Urine Crystals Unidentified Few /HPF (None Seen); Urine Glucose 2+ (Negative); Urine Ketones 1+ (Negative); Urine Micro Reflex YN NO BILL MICROSCOPIC; Urine Mucus Slight /HPF (None Seen); Urine Nitrite NEGATIVE (Negative); Urine Protein NEGATIVE (Negative); Urine RBC <5 /HPF (None Seen); Urine Urobilinogen Normal (Normal); Urine WBC <5 /HPF (<5)
--- NOTE | 2024-10-13 16:14 | EDPHYS ---
Physician Documentation [facility] Name: Orin Castaneda Age: 84 yrs Sex: Female : 1940 Arrival Date: 10/13/2024 Time: 11:18 Bed 10 Private MD: ED Physician Juanito Almendarez HPI: 10/13 16:07 This 84 yrs old Female presents to ER via Wheelchair with complaints of Flu Symptoms, rt Urinary Problem. 16:07 Patient presents to the ED with cough, dyspnea, orthopnea for about 2 days. Reports rt green sputum. Also reports a new pain to the right hip, left heel which she states is red. Reports bilateral lower extremity edema. Denies other acute complaints at this time, symptoms are moderate in severity, no other aggravating or alleviating factors.. Historical: - Allergies: 11:39 Sulfa (Sulfonamide Antibiotics); ld1 - PMHx: 11:40 Hypercholesterolemia; Hypertensive disorder; Rheumatoid arthritis; Congestive heart ld1 failure; Gout; - PSHx: 11:40 Total abdominal hysterectomy; Cholecystectomy; Appendectomy; ld1 - Immunization history:: Adult Immunizations up to date. - Infectious Disease History:: Denies. - Social history:: Smoking status: Patient denies any tobacco usage or history of. - Family history:: not pertinent. ROS: 16:07 Constitutional: Negative for fever, chills, and weight loss, Cardiovascular: Negative rt for chest pain, palpitations, and edema, Abdomen/GI: Negative for abdominal pain, nausea, vomiting, diarrhea, and constipation, Skin: Negative for injury, rash, and discoloration, 16:07 Respiratory: Positive for cough, orthopnea, shortness of breath, 16:07 MS/extremity: Positive for pain, Negative for injury or acute deformity, Exam: 16:07 Constitutional: This is a well developed, well nourished patient who is awake, alert, rt and in no acute distress. Chest/axilla: Normal chest wall appearance and motion. Nontender with no deformity. No lesions are appreciated. Cardiovascular: Regular rate and rhythm with a normal S1 and S2. No gallops, murmurs, or rubs. Normal PMI, no JVD. No pulse deficits. Abdomen/GI: Soft, non-tender, with normal bowel sounds. No distension or tympany. No guarding or rebound. No evidence of tenderness throughout. Skin: Warm, dry with normal turgor. Normal color with no rashes, no lesions, and no evidence of cellulitis. Neuro: Awake and alert, GCS 15, oriented to person, place, time, and situation. Cranial nerves II-XII grossly intact. Motor strength 5/5 in all extremities. Sensory grossly intact. Cerebellar exam normal. Normal gait. 16:07 ECG was reviewed by the Attending Physician. 16:07 Respiratory: Bibasilar crackles, 16:07 Musculoskeletal/extremity: 3+ pitting bilateral extremity edema, no focal tenderness, no deformity to the hip, foot.. Vital Signs: 11:43 BP 172 / 73; Pulse 61; Resp 18; Temp 98.6(O); Pulse Ox 95% on R/A; Weight 92.08 kg; ld1 Height 5 ft. 0 in. ; Pain 7/10; 13:00 BP 176 / 81; Pulse 64; Resp 18; Pulse Ox 95% on R/A; me1 14:00 BP 169 / 78; Pulse 64; Resp 18; Pulse Ox 96% ; me1 15:00 BP 171 / 72; Pulse 67; Resp 17; Pulse Ox 97% ; me1 16:00 BP 164 / 74; Pulse 67; Resp 18; Pulse Ox 96% ; me1 17:00 BP 160 / 92; Pulse 75; Resp 18; Temp 98.2; Pulse Ox 99% ; me1 11:43 Body Mass Index 39.65 (92.08 kg, 152.4 cm) ld1 11:43 Pain Scale: Adult ld1 MDM: 11:46 Medical Screening Exam initiated rt 16:12 Differential Diagnosis CHF, pneumonia, UTI. Data reviewed: vital signs, nurses notes, rt lab test result(s), EKG, radiologic studies. Consideration of Admission/Observation Patient was admitted/placed on observation. Management of patient was discussed with the following: Hospitalist: Agrees to admit. I considered the following discharge prescriptions or medication management in the emergency department Medications were administered in the Emergency Department. See MAR. Independent interpretation of the following test(s) in the Emergency Department X-Ray: My interpretation is Pulmonary edema syndrome interpretation of x-ray images. Test considered but Not performed: CT: Low suspicion for PE, CT angiogram not indicated. Care significantly affected by the following chronic conditions: Congestive Heart Failure. Counseling: I had a detailed discussion with the patient and/or guardian regarding the historical points, exam findings, and any diagnostic results supporting the discharge/admit diagnosis, lab results, radiology results, the need for further work-up and treatment in the hospital. Response to treatment: the patient's symptoms have mildly improved after treatment. 10/13 11:59 Order name: Basic Metabolic Panel; Complete Time: 14:26 rt 10/13 11:59 Order name: CBC with Diff; Complete Time: 14:26 rt 10/13 11:59 Order name: LFT's; Complete Time: 14:26 rt 10/13 11:59 Order name: Magnesium; Complete Time: 14:26 rt 10/13 11:59 Order name: NT PRO-BNP; Complete Time: 14:26 rt 10/13 11:59 Order name: Troponin HS; Complete Time: 14:26 rt 10/13 11:59 Order name: COVID-19 Ag + Flu A+B Ag; Complete Time: 14:26 rt 10/13 11:59 Order name: UAM; Complete Time: 15:01 rt 10/13 17:17 Order name: Basic Metabolic Panel EDMS 10/13 17:17 Order name: Basic Metabolic Panel EDMS 10/13 17:17 Order name: Basic Metabolic Panel EDMS 10/13 17:17 Order name: Basic Metabolic Panel EDMS 10/13 17:17 Order name: Basic Metabolic Panel EDMS 10/13 17:17 Order name: Basic Metabolic Panel EDMS 10/13 17:17 Order name: CBC with Automated Diff EDMS 10/13 17:17 Order name: CBC with Automated Diff EDMS 10/13 17:17 Order name: CBC with Automated Diff EDMS 10/13 17:17 Order name: CBC with Automated Diff EDMS 10/13 17:17 Order name: CBC with Automated Diff EDMS 10/13 17:17 Order name: CBC with Automated Diff EDMS 10/13 17:17 Order name: Magnesium EDMS 10/13 17:17 Order name: Magnesium EDMS 10/13 17:17 Order name: Magnesium EDMS 10/13 17:17 Order name: Magnesium EDMS 10/13 17:17 Order name: Magnesium EDMS 10/13 17:17 Order name: Magnesium EDMS 10/13 17:17 Order name: Phosphorus EDMS 10/13 17:17 Order name: Phosphorus EDMS 10/13 17:17 Order name: Phosphorus EDMS 10/13 17:17 Order name: Phosphorus EDMS 10/13 17:17 Order name: Phosphorus EDMS 10/13 17:17 Order name: Phosphorus EDMS 10/13 17:17 Order name: Troponin High Sensitivity EDMS 10/13 17:17 Order name: Troponin High Sensitivity EDMS 10/13 17:17 Order name: Troponin High Sensitivity EDMS 10/13 17:23 Order name: Sputum Culture EDMS 10/13 11:59 Order name: XRAY Chest (1 view); Complete Time: 14:26 rt 10/13 11:59 Order name: Hip Right 2 View XRAY; Complete Time: 14:26 rt 10/13 11:59 Order name: Foot Left 3 View XRAY; Complete Time: 14:26 rt 10/13 11:59 Order name: EKG; Complete Time: 12:00 rt 10/13 11:59 Order name: Cardiac monitoring; Complete Time: 13:08 rt 10/13 11:59 Order name: EKG - Nurse/Tech; Complete Time: 13:08 rt 10/13 11:59 Order name: IV Saline Lock; Complete Time: 12:43 rt 10/13 11:59 Order name: Labs collected and sent; Complete Time: 12:43 rt 10/13 11:59 Order name: O2 Per Protocol; Complete Time: 12:43 rt 10/13 11:59 Order name: O2 Sat Monitoring; Complete Time: 12:43 rt EC:07 Rate is 66 beats/min. Rhythm is regular, Normal Sinus Rhythm with Left bundle branch rt block. QRS interval is normal. QT interval is normal. No Q waves. Administered Medications: 13:08 Drug: Furosemide IVP 40 mg IVP once; give over 2 minutes Route: IVP; Site: right me1 antecubital; 15:29 Follow up: Response: No adverse reaction me1 13:13 Drug: Albuterol Inhalation 2.5 mg Inhalation once Route: Inhalation; me1 15:29 Follow up: Response: No adverse reaction; Wheezing diminished me1 13:13 Drug: Ipratropium Inhalation Aerosol 0.5 mg Inhalation once Route: Inhalation; me1 15:29 Follow up: Response: No adverse reaction; Wheezing diminished me1 Disposition Summary: 10/13/24 16:14 Hospitalization Ordered Notes: Hospitalization Status: Observation rt Provider: Carter Parker rt Location: Telemetry/MedSurg (observation) rt Condition: Stable rt Problem: an acute exacerbation rt Symptoms: have improved rt Bed/Room Type: Standard rt Room Assignment: 214(10/13/24 17:28) eb Diagnosis - CHF exacerbation rt Forms: - Medication Reconciliation Form rt - SBAR form rt - Leadership Thank You Letter rt Signatures: Dispatcher [employer] Gabby Méndez eb Sara Kelley RN RN ld1 Juanito Almendarez MD MD rt Kaylin Rider RN RN me1 Corrections: (The following items were deleted from the chart) 11:43 11:39 Allergies: No Known Allergies; ld1 ld1 17:28 16:14 rt eb
--- NOTE | 2024-10-13 16:14 | ER ---
Nurse's Notes [facility] Name: Orin Castaneda Age: 84 yrs Sex: Female : 1940 Arrival Date: 10/13/2024 Time: 11:18 Bed 10 Private MD: Diagnosis: CHF exacerbation Presentation: 10/13 11:43 Chief complaint: Patient states: C/O left heel pain, right hip pain (no injury). ld1 Productive cough - green sputum, fatigue X 2 days. Coronavirus screen: At this time, the client does not indicate any symptoms associated with coronavirus-19. Ebola Screen: No symptoms or risks identified at this time. Initial Sepsis Screen: Does the patient meet any 2 criteria? No. Patient's initial sepsis screen is negative. Does the patient have a suspected source of infection? No. Patient's initial sepsis screen is negative. Risk Assessment: Do you want to hurt yourself or someone else? Patient reports no desire to harm self or others. Onset of symptoms was October 13, 2024. 11:43 Method Of Arrival: Wheelchair ld1 11:43 Acuity: KIM 3 ld1 Triage Assessment: 11:43 General: Appears in no apparent distress. uncomfortable, Behavior is calm, cooperative, ld1 appropriate for age. Pain: Complains of pain in right foot and left foot Pain does not radiate. Pain currently is 8 out of 10 on a pain scale. Quality of pain is described as throbbing, Pain began suddenly, Is continuous. EENT: No signs and/or symptoms were reported regarding the EENT system. Neuro: Level of Consciousness is awake, alert, obeys commands, Oriented to person, place, time, situation. Cardiovascular: Capillary refill < 3 seconds Patient's skin is warm and dry. Respiratory: Airway is patent Respiratory effort is even, unlabored. GI: Abdomen is round non-distended. : No signs and/or symptoms were reported regarding the genitourinary system. Derm: No signs and/or symptoms reported regarding the dermatologic system. Musculoskeletal: No signs and/or symptoms reported regarding the musculoskeletal system. Historical: - Allergies: 11:39 Sulfa (Sulfonamide Antibiotics); ld1 - PMHx: 11:40 Hypercholesterolemia; Hypertensive disorder; Rheumatoid arthritis; Congestive heart ld1 failure; Gout; - PSHx: 11:40 Total abdominal hysterectomy; Cholecystectomy; Appendectomy; ld1 - Immunization history:: Adult Immunizations up to date. - Infectious Disease History:: Denies. - Social history:: Smoking status: Patient denies any tobacco usage or history of. - Family history:: not pertinent. Screenin:20 [facility] ED Fall Risk Assessment (Adult) History of falling in the last 3 months, me1 including since admission No falls in past 3 months (0 pts) Confusion or Disorientation No (0 pts) Intoxicated or Sedated No (0 pts) Impaired Gait No (0 pts) Mobility Assist Device Used No (0 pt) Altered Elimination No (0 pt) Score/Fall Risk Level 0 - 2 = Low Risk Maintained a safe environment, Provided non-skid footwear, Hourly rounding (assess needs \T\ fall precautionary measures) done. Abuse screen: Denies threats or abuse. Nutritional screening: No deficits noted. Tuberculosis screening: No symptoms or risk factors identified. Assessment: 12:20 General: Appears ill, obese, well groomed, well developed, Behavior is calm, me1 cooperative, appropriate for age, Reports C/O left heel pain, right hip pain (no injury). Productive cough - green sputum, fatigue X 2 days. Pain: Complains of pain in left foot, right hip Pain does not radiate. Pain currently is 8 out of 10 on a pain scale. Quality of pain is described as aching, Pain began suddenly, Is continuous. Neuro: Level of Consciousness is awake, alert, obeys commands, Oriented to person, place, time, situation, Appropriate for age. Cardiovascular: Patient's skin is warm and dry. Respiratory: Reports cough that is persistent. Respiratory: Airway is patent Respiratory effort is even, unlabored, Respiratory pattern is regular, symmetrical. GI: No signs and/or symptoms were reported involving the gastrointestinal system. : No signs and/or symptoms were reported regarding the genitourinary system. EENT: No signs and/or symptoms were reported regarding the EENT system. Derm: Skin is intact, is healthy with good turgor, Skin is pink, warm \T\ dry. Musculoskeletal: No signs and/or symptoms reported regarding the musculoskeletal system. Vital Signs: 11:43 BP 172 / 73; Pulse 61; Resp 18; Temp 98.6(O); Pulse Ox 95% on R/A; Weight 92.08 kg; ld1 Height 5 ft. 0 in. ; Pain 7/10; 13:00 BP 176 / 81; Pulse 64; Resp 18; Pulse Ox 95% on R/A; me1 14:00 BP 169 / 78; Pulse 64; Resp 18; Pulse Ox 96% ; me1 15:00 BP 171 / 72; Pulse 67; Resp 17; Pulse Ox 97% ; me1 16:00 BP 164 / 74; Pulse 67; Resp 18; Pulse Ox 96% ; me1 17:00 BP 160 / 92; Pulse 75; Resp 18; Temp 98.2; Pulse Ox 99% ; me1 11:43 Body Mass Index 39.65 (92.08 kg, 152.4 cm) ld1 11:43 Pain Scale: Adult ld1 ED Course: 11:26 Patient arrived in ED. im 11:39 Juanito Almendarez MD is Attending Physician. rt 11:43 Arm band placed on right wrist. ld1 11:45 Triage completed. ld1 11:48 Sara Kelley, RN is Primary Nurse. ld1 12:03 Kaylin Rider, ELLIE is Primary Nurse. me1 12:20 Patient has correct armband on for positive identification. Bed in low position. Call me1 light in reach. Side rails up X2. Provided Education on: POC. Verbalized understanding.. Client placed on continuous cardiac and pulse oximetry monitoring. NIBP monitoring applied. surveillance monitor on. Pulse ox on. NIBP on. 12:20 No provider procedures requiring assistance completed. me1 12:42 Initial lab(s) drawn, by sd, sent to lab. COVID swab sent to lab. Flu and/or RSV swab me1 sent to lab. Inserted saline lock: 22 gauge in right antecubital area, using aseptic technique. 12:43 Basic Metabolic Panel Sent. me1 12:43 CBC with Diff Sent. me1 12:43 LFT's Sent. me1 12:43 Magnesium Sent. me1 12:43 NT PRO-BNP Sent. me1 12:43 Troponin HS Sent. me1 13:04 XRAY Chest (1 view) In Process Unspecified. EDMS 13:04 Hip Right 2 View XRAY In Process Unspecified. EDMS 13:04 Foot Left 3 View XRAY In Process Unspecified. EDMS 16:13 Carter Parker MD is Hospitalizing Provider. rt 17:42 Patient admitted, IV remains in place. me1 Administered Medications: 13:08 Drug: Furosemide IVP 40 mg IVP once; give over 2 minutes Route: IVP; Site: right me1 antecubital; 15:29 Follow up: Response: No adverse reaction me1 13:13 Drug: Albuterol Inhalation 2.5 mg Inhalation once Route: Inhalation; me1 15:29 Follow up: Response: No adverse reaction; Wheezing diminished me1 13:13 Drug: Ipratropium Inhalation Aerosol 0.5 mg Inhalation once Route: Inhalation; me1 15:29 Follow up: Response: No adverse reaction; Wheezing diminished me1 Medication: 13:38 VIS not applicable for this client. me1 Output: 17:06 Urine: 1600ml (Voided); Total: 1600ml. me1 Outcome: 16:14 Decision to Hospitalize by Provider. rt 17:42 Admitted to Med/surg accompanied by tech, via stretcher, room 214, with chart, Report me1 called to faxed, receipt confirmed with Tamiko. 17:42 Condition: stable 17:42 Instructed on the need for admit, 18:25 Patient left the ED. me1 Signatures: Dispatcher [employer] EDMS Sara Kelley RN RN ld1 Juanito Almendarez MD MD rt Mary Lou Pedraza Michelle, RN RN me1 Corrections: (The following items were deleted from the chart) 11:43 11:39 Allergies: No Known Allergies; ld1 ld1 13:36 11:43 Chief complaint: Patient states: C/O left heel pain, right hip pain (no injury). me1 Productive cough - green sputum, fatigue X 2 days. ld1 13:40 13:37 Pain: Complains of pain in left foot, right hip Pain does not radiate. Pain me1 me1 13:41 13:38 Patient has correct armband on for positive identification. Bed in low position. me1 Call light in reach. Side rails up X2. me1 13:42 13:37 General: Appears ill, obese, well groomed, well developed, Behavior is calm, me1 cooperative, appropriate for age, Reports C/O left heel pain, right hip pain (no injury). Productive cough - green sputum, fatigue X 2 days. me1 13:42 13:37 Pain: Complains of pain in left foot, right hip Pain does not radiate. Pain me1 currently is 8 out of 10 on a pain scale. Quality of pain is described as aching, Pain began suddenly, Is continuous, me1 :42 13:38 Neuro: Level of Consciousness is awake, alert, obeys commands, Oriented to me1 person, place, time, situation, Appropriate for age me1 :42 13:38 Cardiovascular: Patient's skin is warm and dry. me1 me1 :42 13:38 Respiratory: Airway is patent Respiratory effort is even, unlabored, Respiratory me1 pattern is regular, symmetrical, me1 :42 13:38 GI: No signs and/or symptoms were reported involving the gastrointestinal system. me1 me1 13:38 Respiratory: Reports cough that is persistent me1 me1 13:38 : No signs and/or symptoms were reported regarding the genitourinary system. [place] [place] 13:[place] EENT: No signs and/or symptoms were reported regarding the EENT system. me1 me1 :42 13:38 Derm: Skin is intact, is healthy with good turgor, Skin is pink, warm \T\ dry. me1 me1 :42 13:38 Musculoskeletal: No signs and/or symptoms reported regarding the musculoskeletal me1 system. sd1 43 13:38 Provided Education on: POC. Verbalized understanding.. me1 me1 :43 13:38 Client placed on continuous cardiac and pulse oximetry monitoring. NIBP me1 monitoring applied. surveillance monitor on. Pulse ox on. NIBP on. me1 :43 13:38 Patient has correct armband on for positive identification. Bed in low position. me1 Call light in reach. Side rails up X2. sd1 :43 13:38 [facility] ED Fall Risk Assessment (Adult) History of falling in the last 3 months, me1 including since admission No falls in past 3 months (0 pts) Confusion or Disorientation No (0 pts) Intoxicated or Sedated No (0 pts) Impaired Gait No (0 pts) Mobility Assist Device Used No (0 pt) Altered Elimination No (0 pt) Score/Fall Risk Level 0 - 2 = Low Risk Maintained a safe environment, Provided non-skid footwear, Hourly rounding (assess needs \T\ fall precautionary measures) done, [facility] 13:38 Abuse screen: Denies threats or abuse. sd1 [facility] 13:38 Nutritional screening: No deficits noted. sd1 [facility] 13:38 Tuberculosis screening: No symptoms or risk factors identified. [place] [id number]
--- NOTE | 2024-10-13 17:26 | P.HP ---
Certification for Inpatient Patient admitted to: Observation With expected LOS: <2 Midnights Practitioner: I am a practitioner with admitting privileges, knowledge of patient current condition, hospital course, and medical plan of care. Services: Services provided to patient in accordance with Admission requirements found in Title 42 Section 412.3 of the Code of Federal Regulations Patient History Date of Service: 10/13/24 Reason for admission: Acute hypoxic respiratory distress 2/2 CHF exacerbation History of Present Illness: Orin Castaneda is an 84 year old female with Pmhx Hypercholesterolemia, Afib with pacemaker, Hypertensive disorder, Rheumatoid arthritis, Congestive heart failure, Gout who presents with complaints of right hip, left foot pain, and coughing up green sputum for two days. She reports having pneumonia 3 months ago and being discharged with IV antibiotics. Right hip and left foot xray showing degenerative changes but no fracture present. Laboratory evaluation significant for H/H , BNP 34377. Flu,COVID, and UA negative. Orin will be admitted for diuresis. Allergies No Known Allergies Allergy (Unverified 10/13/24 18:42) - Past Medical/Surgical History -: Afib -: HTN -: CHF -: GOUT -: Hypercholesterolemia -: RA -: Total Abdominal hysterectomy -: cholecystectomy -: appendectomy - Social History Smoking Status: Former smoker Alcohol use: No CD- Drugs: No Review of Systems Other: per HPI Physical Examination - Physical Exam General: Alert, In no apparent distress, Oriented x3 HEENT: Atraumatic, Normocephalic Neck: Supple, 2+ carotid pulse no bruit Respiratory: Clear to auscultation bilaterally, Normal air movement Cardiovascular: Normal pulses, Regular rate/rhythm Capillary refill: <2 Seconds Gastrointestinal: Normal bowel sounds, Soft and benign Musculoskeletal: No clubbing Integumentary: No rashes Neurological: Normal speech, Normal tone - Studies Laboratory Data (last 24 hrs) 10/13/24 10/13/24 12:39 12:39 WBC 6.50 Hgb 11.9 L Hct 35.6 L Plt Count 194 Sodium 139 Potassium 3.8 BUN 25 H Creatinine 0.82 Glucose 79 Magnesium 2.1 Total Bilirubin 1.1 H AST 18 ALT 16 Alkaline Phosphatase 125 H Assessment and Plan - Plan Assesment and plan Acute hypoxic respiratory distress 2/2 CHF exacerbation History PNA Fluid volume overload associated with Pulmonary Edema Productuve cough -Chest xray reports "Findings of central congestion which may relate to CHF or pulmonary edema " - BNP 50394 -lasix BID -currently no oxygen required -Sputum culture -empiric antibiotics Afib with pacemaker -continuous telemetry -continue home medications when reconciled Right hip pain left plantar pain -xrays showing degenerative changes -pain control Hypercholesterolemia Hypertensive disorder Rheumatoid arthritis Gout - continue home medications DVT ppx lovenox Full code LOS 24 hour OBS Discharge Plan: Home Plan to discharge in: 24 Hours - Advance Directives Does patient have a Living Will: No Does patient have a Durable POA for Healthcare: No
[2024-10-13 19:50] VITALS: BMI 39.6
[2024-10-13] MEDS: FUROSEMIDE 40 MG/4 ML VIAL IV SCH (20:18)
[2024-10-13] MEDS: ACETAMINOPHEN 325 MG TABLET PO PRN (20:19)
[2024-10-13] MEDS: CEFTRIAXONE 1,000 MG in NA CHLORIDE 0.9% 50 ML IVPB SCH (22:05)
[2024-10-14 05:36] LABS: Absolute Eosinophils 0.2 K/uL (0-0.5); Absolute Lymphocytes (CBC) 0.9 K/uL (0.7-4.9); Absolute Monocytes 0.6 K/uL (0.1-1.3); Absolute Neutrophil 3.1 K/uL (1.8-8.0); Basophils % 0.5 % (0-1.3); Hemoglobin 10.8 g/dL (12.0-15.0); Lymphocytes % 18.6 % (15.3-44.8); MCH 29.9 pg (27.0-35.0); MCHC 33.7 g/dL (32.0-36.0); MCV 88.9 fL (80-100); MPV 9.7 fL (7.6-11.3); Neutrophils % 64.9 % (41.7-73.7); Nucleated Red Blood Cells % 0.1 % (0-0); Platelets 198 thou/uL (152-406); Red Cell Distribution Width 16.3 % (12.1-15.2)
[2024-10-14 05:47] LABS: Anion Gap 11.2 mEq/L (5.0-15.0); Magnesium 1.8 mg/dL (1.6-2.4); Phosphorus 2.9 mg/dL (2.5-4.9); Potassium 3.2 mEq/L (3.5-5.1)
[2024-10-14] MEDS: AZITHROMYCIN IV 500 MG in NA CHLORIDE 0.9% 250 ML IVPB SCH (09:41)
[2024-10-14] MEDS: POTASSIUM CL SA 10 MEQ TAB PO ONE (09:42)
[2024-10-14] MEDS: MAGNESIUM SULFATE 1 gm IVPB 1 GM/100 ML BAG IV ONE (09:43)
[2024-10-14] MEDS: ENOXAPARIN 40 MG/0.4 ML SQ SCH (09:43)
[2024-10-15 05:50] LABS: Absolute Eosinophils 0.3 K/uL (0-0.5); Absolute Lymphocytes (CBC) 1.3 K/uL (0.7-4.9); Absolute Monocytes 0.6 K/uL (0.1-1.3); Basophils % 0.6 % (0-1.3); Eosinophils % 6.2 % (0-4.4); Hemoglobin 11.2 g/dL (12.0-15.0); Lymphocytes % 30.3 % (15.3-44.8); MCH 30.1 pg (27.0-35.0); MCV 88.7 fL (80-100); MPV 9.5 fL (7.6-11.3); Monocytes % 13.8 % (3.3-12.3); Neutrophils % 49.1 % (41.7-73.7); Nucleated Red Blood Cells % 0.2 % (0-0); Platelets 190 thou/uL (152-406); RBC Red Blood Cell Count 3.72 M/uL (3.86-4.86); Red Cell Distribution Width 16.1 % (12.1-15.2)
[2024-10-15 06:04] LABS: Anion Gap 7.2 mEq/L (5.0-15.0); Magnesium 1.8 mg/dL (1.6-2.4); Phosphorus 2.5 mg/dL (2.5-4.9); Potassium 3.2 mEq/L (3.5-5.1)
--- NOTE | 2024-10-15 07:58 | P.PN ---
Date of Service: 10/14/24 Subjective Awake, reports feeling better on 2 LNC, will need to wean no new complaints ROS 10 point ROS as noted above, otherwise negative Physical Exam General: Alert and Oriented x3, NAD HEENT: Atraumatic, Normocephalic Neck: Supple, 2+ carotid pulse no bruit Respiratory: Clear BBS, Normal air movement, on 2 LNC Cardiovascular: Normal pulses, NSR Capillary refill: <2 Seconds Gastrointestinal: Normal bowel sounds, Soft and benign on palpation Musculoskeletal: No clubbing Integumentary: No rashes Neurological: Normal speech, Normal tone Vitals Reviewed Problem list Acute hypoxic respiratory distress 2/2 CHF exacerbation History PNA Fluid volume overload associated with Pulmonary Edema Productuve cough Afib with pacemaker Right hip pain left plantar pain Hypercholesterolemia Hypertensive disorder Rheumatoid arthritis Gout Assessment and Plan Acute hypoxic respiratory distress 2/2 CHF exacerbation History PNA Fluid volume overload associated with Pulmonary Edema Productuve cough -Chest xray reports "Findings of central congestion which may relate to CHF or pulmonary edema " - BNP 70594 -lasix BID, UOP 2700 ml -currently no oxygen required at home, on 2 LNC inpatient -Sputum culture, uncollected -empiric antibiotics with rocephin/azithromycin -1500 ml fluid restriction Afib with pacemaker -continuous telemetry -continue home medications when reconciled Right hip pain left plantar pain -xrays showing degenerative changes -pain control Hypercholesterolemia Hypertensive disorder Rheumatoid arthritis Gout - continue home medications DVT ppx lovenox Full code LOS 24 hour OBS Discharge Plan: Home Plan to discharge in: 24 Hours
[2024-10-15] MEDS: POTASS/SODIUM PHOSPHATE 1 PKT POWD.PACK PO SCH (08:00)
[2024-10-15] MEDS ORDERED: predniSONE 1 MG TAB PO SCH (09:00)
[2024-10-15] MEDS ORDERED: PREDNISONE 1 MG PO SCH (09:00)
[2024-10-15] MEDS ORDERED: HOME MED 1 EA UNK (Dapagliflozin Propanediol [Farxiga] 10 MG Tablet) PO SCH (09:00)
[2024-10-15] MEDS: Dapagliflozin Propanediol [Farxiga] 10 MG Tablet *PT OWN MED PO SCH (09:00)
[2024-10-15] MEDS: MAGNESIUM SULFATE 1 gm IVPB 1 GM/100 ML BAG IV ONE (09:00)
[2024-10-15] MEDS ORDERED: HOME MED 1 EA UNK (Valsartan [Valsartan] 320 MG Tablet) PO SCH (09:00)
[2024-10-15] MEDS: POTASSIUM 25 MEQ EFFERV TAB PO ONE (10:03)
[2024-10-15] MEDS: APIXABAN 5 MG TABLET PO SCH (10:04)
[2024-10-15] MEDS: NEBIVOLOL HCL 20 MG TABLET PO SCH (10:04)
[2024-10-15] MEDS: FUROSEMIDE 40 MG TABLET PO SCH (10:04)
[2024-10-15] MEDS: predniSONE 1 MG TAB PO SCH (10:05)
[2024-10-15] MEDS: allopurinoL 300 MG TAB PO SCH (10:05)
[2024-10-15] MEDS: VALSARTAN 160 MG TAB PO SCH (10:06)
[2024-10-15] MEDS: MAGNESIUM OXIDE 400 MG TAB PO SCH (12:38)
--- NOTE | 2024-10-15 15:33 | P.PN ---
Date of Service: 10/15/24 Subjective Weaned off oxygen, reports feeling better but not fully recovered likely discharge in the AM, successful diuresis and restarting home lasix dose ROS 10 point ROS as noted above, otherwise negative Physical Exam General: AAO x3, afebrile HEENT: Atraumatic, Normocephalic Neck: Supple, 2+ carotid pulse no bruit Respiratory: Clear BBS, nonlabored breathing, on RA Cardiovascular: Normal pulses, NSR, S1-S2 present Capillary refill: <2 Seconds Gastrointestinal: Soft and benign on palpation, nontender Musculoskeletal: No clubbing Integumentary: No rashes Neurological: Normal speech, Normal tone Vitals Reviewed Problem list Acute hypoxic respiratory distress 2/2 CHF exacerbation History PNA Fluid volume overload associated with Pulmonary Edema Productuve cough Hypokalemia/hypomangnasemia Afib with pacemaker Right hip pain left plantar pain Hypercholesterolemia Hypertensive disorder Rheumatoid arthritis Gout Assessment and Plan Acute hypoxic respiratory distress 2/2 CHF exacerbation History PNA Fluid volume overload associated with Pulmonary Edema Productuve cough -Chest xray reports "Findings of central congestion which may relate to CHF or pulmonary edema " - BNP 46949 -lasix BID, UOP 900 ml recorded -currently no oxygen required at home, weaned off oxygen -Sputum culture, uncollected -empiric antibiotics with rocephin/azithromycin -1500ml fluid restriction Hypokalemia/hypomangnasemia -replace PO as patient is on a fluid restriction -Magox BID Afib with pacemaker -continuous telemetry -continue home medications when reconciled Right hip pain left plantar pain -xrays showing degenerative changes -pain control Hypercholesterolemia Hypertensive disorder Rheumatoid arthritis Gout - continue home medications DVT ppx lovenox Full code LOS 24 hour OBS Discharge Plan: Home in the AM Plan to discharge in: 24 Hours
[2024-10-15] MEDS ORDERED: FUROSEMIDE 40 MG TABLET PO SCH (21:00)
[2024-10-16] MEDS: BENZONATATE 100 MG CAP PO PRN (02:39)
[2024-10-16 05:27] LABS: Absolute Eosinophils 0.3 K/uL (0-0.5); Absolute Lymphocytes (CBC) 1.4 K/uL (0.7-4.9); Absolute Monocytes 0.6 K/uL (0.1-1.3); Absolute Neutrophil 2.3 K/uL (1.8-8.0); Basophils % 0.6 % (0-1.3); Eosinophils % 5.7 % (0-4.4); Hematocrit 34.4 % (36.0-45.0); Hemoglobin 11.5 g/dL (12.0-15.0); Lymphocytes % 31.2 % (15.3-44.8); MCH 29.5 pg (27.0-35.0); MCHC 33.4 g/dL (32.0-36.0); MCV 88.2 fL (80-100); MPV 9.3 fL (7.6-11.3); Monocytes % 13.4 % (3.3-12.3); Neutrophils % 49.1 % (41.7-73.7); Nucleated Red Blood Cells % 0.1 % (0-0); Platelets 208 thou/uL (152-406); Red Cell Distribution Width 16.4 % (12.1-15.2)
[2024-10-16 05:46] LABS: Anion Gap 7.4 mEq/L (5.0-15.0); Phosphorus 3.3 mg/dL (2.5-4.9); Potassium 3.4 mEq/L (3.5-5.1)
[2024-10-16] MEDS: LEVOTHYROXINE SOD 0.112 MG TAB PO SCH (06:30)
[2024-10-16] MEDS: predniSONE 1 MG TAB PO SCH (10:25)
[2024-10-16] MEDS: POTASSIUM CL SA 10 MEQ TAB PO ONE (10:25)
--- NOTE | 2024-10-16 12:17 | EKG ---
Test Date: 2024-10-13 Test Time: 13:02:26 Telemetry Technician: MEASUREMENT RESULTS: Intervals: Rate: 66 NV: QRSD: 184 QT: 474 QTc: 496 [place]: P: NV: QRS: 92 T: 9 INTERPRETIVE STATEMENTS: Wide QRS rhythm Rightward axis Left bundle branch block Abnormal ECG No previous ECG available for comparison Electronically Signed On 10-16-24 12:10:02 CDT by Case Ken
--- NOTE | 2024-10-16 12:44 | P.PN ---
Date of Service: 10/16/24 Subjective Breathing well on room air Feeling very weak Concerned how she will care for herself at home PT consult added ROS 10 point ROS as noted above, otherwise negative Physical Exam General: AAO x3, afebrile HEENT: Atraumatic, Normocephalic Neck: Supple, 2+ carotid pulse no bruit Respiratory: Clear BBS, nonlabored breathing, on RA Cardiovascular: Normal pulses, NSR, S1-S2 present Capillary refill: <2 Seconds Gastrointestinal: Soft and benign on palpation, nontender Musculoskeletal: No clubbing Integumentary: No rashes Neurological: Normal speech, Normal tone Vitals Reviewed Problem list Acute hypoxic respiratory distress 2/2 CHF exacerbation History PNA Fluid volume overload associated with Pulmonary Edema Productuve cough Hypokalemia/hypomangnasemia Afib with pacemaker Right hip pain left plantar pain Hypercholesterolemia Hypertensive disorder Rheumatoid arthritis Gout Plan Acute hypoxic respiratory distress 2/2 CHF exacerbation History PNA Fluid volume overload associated with Pulmonary Edema Productuve cough -Continue oral Lasix -currently no oxygen required at home, weaned off oxygen -empiric antibiotics with rocephin/azithromycin -1500ml fluid restriction - PT consultation Hypokalemia/hypomangnasemia -replace PO as patient is on a fluid restriction -Magox BID Afib with pacemaker -continuous telemetry -continue home medications when reconciled Right hip pain left plantar pain -xrays showing degenerative changes -pain control Hypercholesterolemia Hypertensive disorder Rheumatoid arthritis Gout - continue home medications DVT ppx lovenox Full code
[2024-10-16] MEDS: FUROSEMIDE 40 MG/4 ML VIAL IV ONE (17:02)
[2024-10-17 06:11] LABS: Absolute Basophils 0.1 K/uL (0-0.5); Absolute Eosinophils 0.2 K/uL (0-0.5); Absolute Lymphocytes (CBC) 1.4 K/uL (0.7-4.9); Absolute Monocytes 0.8 K/uL (0.1-1.3); Basophils % 0.8 % (0-1.3); Eosinophils % 3.5 % (0-4.4); Hematocrit 35.5 % (36.0-45.0); Hemoglobin 11.8 g/dL (12.0-15.0); Lymphocytes % 21.5 % (15.3-44.8); MCH 29.4 pg (27.0-35.0); MCHC 33.3 g/dL (32.0-36.0); MCV 88.3 fL (80-100); MPV 9.4 fL (7.6-11.3); Monocytes % 11.9 % (3.3-12.3); Neutrophils % 62.3 % (41.7-73.7); Platelets 226 thou/uL (152-406); RBC Red Blood Cell Count 4.03 M/uL (3.86-4.86); Red Cell Distribution Width 15.9 % (12.1-15.2)
[2024-10-17 06:22] LABS: Anion Gap 6.4 mEq/L (5.0-15.0); Magnesium 2.2 mg/dL (1.6-2.4); Phosphorus 3.2 mg/dL (2.5-4.9); Potassium 3.4 mEq/L (3.5-5.1)
[2024-10-17] MEDS: POTASSIUM CL SA 10 MEQ TAB PO ONE ×2 (09:18→17:12)
--- NOTE | 2024-10-17 16:02 | P.PN ---
Date of Service: 10/17/24 Subjective Breathing well on room air Feeling very weak Concerned how she will care for herself at home Working with PT but very limited by weakness ROS 10 point ROS as noted above, otherwise negative Physical Exam General: AAO x3, afebrile HEENT: Atraumatic, Normocephalic Neck: Supple, 2+ carotid pulse no bruit Respiratory: Clear BBS, nonlabored breathing, on RA Cardiovascular: Normal pulses, NSR, S1-S2 present Capillary refill: <2 Seconds Gastrointestinal: Soft and benign on palpation, nontender Musculoskeletal: No clubbing Integumentary: No rashes Neurological: Normal speech, Normal tone Vitals Reviewed Problem list Acute hypoxic respiratory distress 2/2 CHF exacerbation History PNA Fluid volume overload associated with Pulmonary Edema Productuve cough Hypokalemia/hypomangnasemia Afib with pacemaker Right hip pain left plantar pain Hypercholesterolemia Hypertensive disorder Rheumatoid arthritis Gout Plan Acute hypoxic respiratory distress 2/2 CHF exacerbation History PNA Fluid volume overload associated with Pulmonary Edema Productuve cough -Continue oral Lasix -currently no oxygen required at home, weaned off oxygen -empiric antibiotics with rocephin/azithromycin -1500ml fluid restriction - PT consultation-likely appropriate for inpatient rehab, consultation placed Hypokalemia/hypomangnasemia -replace PO as patient is on a fluid restriction -Magox BID Afib with pacemaker -continuous telemetry -continue home medications when reconciled Right hip pain left plantar pain -xrays showing degenerative changes -pain control Hypercholesterolemia Hypertensive disorder Rheumatoid arthritis Gout - continue home medications DVT ppx lovenox Full code
[2024-10-17 22:00] VITALS: O2SAT 96
[2024-10-18 06:43] LABS: Absolute Eosinophils 0.2 K/uL (0-0.5); Absolute Lymphocytes (CBC) 1.4 K/uL (0.7-4.9); Absolute Monocytes 0.7 K/uL (0.1-1.3); Absolute Neutrophil 2.8 K/uL (1.8-8.0); Basophils % 0.7 % (0-1.3); Eosinophils % 3.5 % (0-4.4); Hematocrit 34.6 % (36.0-45.0); Hemoglobin 11.5 g/dL (12.0-15.0); Lymphocytes % 27.2 % (15.3-44.8); MCH 29.5 pg (27.0-35.0); MCHC 33.2 g/dL (32.0-36.0); MCV 88.8 fL (80-100); MPV 9.4 fL (7.6-11.3); Monocytes % 14.2 % (3.3-12.3); Neutrophils % 54.4 % (41.7-73.7); Platelets 224 thou/uL (152-406); RBC Red Blood Cell Count 3.89 M/uL (3.86-4.86); Red Cell Distribution Width 16.1 % (12.1-15.2)
[2024-10-18 06:55] LABS: Anion Gap 7.6 mEq/L (5.0-15.0); Magnesium 2.2 mg/dL (1.6-2.4); Phosphorus 3.3 mg/dL (2.5-4.9); Potassium 3.6 mEq/L (3.5-5.1)
[2024-10-18 08:46] VITALS: TEMP 97.6
[2024-10-18] MEDS: POTASSIUM 25 MEQ EFFERV TAB PO ONE (09:23)
[2024-10-18 09:24] VITALS: BP 106/52
--- NOTE | 2024-10-18 12:33 | P.DS ---
Admission Date: 10/14/24 Discharge Date: 10/18/24 Disposition: TRANSFER TO INPATIENT REHAB Discharge Condition: GOOD Reason for Admission: Acute hypoxic respiratory distress 2/2 CHF exacerbation Brief History of Present Illness: Orin Castaneda is an 84 year old female with Pmhx Hypercholesterolemia, Afib with pacemaker, Hypertensive disorder, Rheumatoid arthritis, Congestive heart failure, Gout who presents with complaints of right hip, left foot pain, and coughing up green sputum for two days. She reports having pneumonia 3 months ago and being discharged with IV antibiotics. Right hip and left foot xray showing degenerative changes but no fracture present. Laboratory evaluation significant for H/H , BNP 68174. Flu,COVID, and UA negative. Hospital Course: Problem list Acute hypoxic respiratory distress 2/2 CHF exacerbation History PNA Fluid volume overload associated with Pulmonary Edema Productuve cough Hypokalemia/hypomangnasemia Afib with pacemaker Right hip pain left plantar pain Hypercholesterolemia Hypertensive disorder Rheumatoid arthritis Gout Patient was admitted to the hospital for a CHF exacerbation. She was diuresed with IV Lasix and has had improvement in her symptoms. She is working with PT and is quite weak from her baseline, she is appropriate for inpatient rehab. Patient will be transferred to inpatient rehab for further PT before returning home. Vital Signs/Physical Exam: Temp Pulse Resp BP Pulse Ox 97.6 F 63 20 106/52 L 94 10/18/24 08:00 10/18/24 09:21 10/18/24 08:00 10/18/24 09:21 10/18/24 08:00 General: Alert, In no apparent distress, Oriented x3 HEENT: Atraumatic, PERRLA Neck: Supple, JVD not distended Respiratory: Clear to auscultation bilaterally, Normal air movement Cardiovascular: Regular rate/rhythm, Normal S1 S2 Gastrointestinal: Normal bowel sounds, No tenderness Musculoskeletal: No tenderness Integumentary: No rashes Neurological: Normal speech, Normal tone Laboratory Data at Discharge: WBC 5.10 thou/uL (4.3-10.9) 10/18/24 06:16 Hgb 11.5 g/dL (12.0-15.0) L 10/18/24 06:16 Hct 34.6 % (36.0-45.0) L 10/18/24 06:16 Plt Count 224 thou/uL (152-406) 10/18/24 06:16 Sodium 138 mEq/L (136-145) 10/18/24 06:16 Potassium 3.6 mEq/L (3.5-5.1) 10/18/24 06:16 BUN 24 mg/dL (7-18) H 10/18/24 06:16 Creatinine 0.81 mg/dL (0.55-1.02) 10/18/24 06:16 Glucose 90 mg/dL (74-106) 10/18/24 06:16 Phosphorus 3.3 mg/dL (2.5-4.9) 10/18/24 06:16 Magnesium 2.2 mg/dL (1.6-2.4) 10/18/24 06:16 Total Bilirubin 1.1 mg/dL (0.2-1.0) H 10/13/24 12:39 AST 18 U/L (15-37) 10/13/24 12:39 ALT 16 U/L (13-56) 10/13/24 12:39 Alkaline Phosphatase 125 U/L (45-117) H 10/13/24 12:39 Home Medications: Allopurinol 300 mg PO DAILY 10/14/24 Apixaban [Eliquis] 1 tab PO BID 10/14/24 Dapagliflozin Propanediol [Farxiga] 10 mg PO DAILY 10/14/24 Furosemide 40 mg PO BID 10/14/24 Hydrocodone Bit/Acetaminophen [Hydrocodon-Acetaminophn 10-325] 1 each PO Q6H PRN 10/14/24 Levothyroxine [Synthroid*] 112 mcg PO DAILY 10/14/24 Nebivolol HCl 1 tab PO DAILY 10/14/24 Prednisone [Kena] 1 mg PO DAILY 10/14/24 Valsartan 320 mg PO DAILY 10/14/24 Benzonatate [Tessalon Perle*] 200 mg PO TID PRN cap 10/18/24 Physician Discharge Instructions: Patient was admitted to the hospital for a CHF exacerbation. She was diuresed with IV Lasix and has had improvement in her symptoms. She is working with PT and is quite weak from her baseline, she is appropriate for inpatient rehab. Patient will be transferred to inpatient rehab for further PT before returning home. Diet: AHA Activity: Fall precautions Followup: [facility]OTOOT [Primary Care Provider] - 1-2 Weeks Time spent managing pt's care (in minutes): 47
== END 2024-10-18 10:53 | DRG 293 ==
LOC: ER 11:18 → 2ND 16:57 → OBSVTOIN 10-14 14:31
PROVIDERS: ADMIT Hospitalist; ATTEND Internal Medicine
DX: I11.0 Hypertensive heart disease with heart failure (principal); I50.9 Heart failure, unspecified; M10.9 Gout, unspecified; I48.91 Unspecified atrial fibrillation; E87.6 Hypokalemia; E83.42 Hypomagnesemia; M25.551 Pain in right hip; M06.9 Rheumatoid arthritis, unspecified; E78.00 Pure hypercholesterolemia, unspecified; R06.03 Acute respiratory distress; Z88.2 Allergy status to sulfonamides; Z95.0 Presence of cardiac pacemaker; Z11.52 Encounter for screening for COVID-19; Z90.49 Acquired absence of other specified parts of digestive tract; Z87.891 Personal history of nicotine dependence; Z90.710 Acquired absence of both cervix and uterus
CPT/HCPCS: 36415; 71045; 80048; 80076; 81001; 83735; 83880; 84100; 84132; 84484; 85025; 87428; 93005; 96374; 97116; 97161; 99285; G0378; J0696; J1650; J1938; J3475; J7050; J7512; J7613; J7644

== ENCOUNTER 2024-10-18 09:02 | Inpatient (IN) | payer OTHER ==
--- OUTSIDE RECORDS SUMMARY | 2024-10-18 11:06 | XMS REPORT | Continuity of Care Document ---
Author Name Unknown Address [address] [facility] [address] [place] [address] [facility] Address [address] [facility] [address] [place] [address] Care Team Providers Care Managing Jeweler Name Role Phone Chele Bass Attending Clinician Unavailable Nooruddin_K Attending Clinician Unavailable Keyla Galvan Attending Clinician Unavailable Chele Bass Admitting Clinician Unavailable Noordonis_K Admitting Clinician Unavailable Haja Carnes Admitting Clinician Unavailable Payers Payer Name Policy Type Policy Number Effective Date Expirati on Date Source MEDICARE [place]: [employer] [id number] 2007 00:00:00 ELBA FERNANDA WHITE (MEDICARE SUPPLEMENT) [id number] 2007 00:00:00 Problems Condition Name Condition Details [...] DA Active MO UNKNOWN 07-10 00:00: 00 [facility] bacitrac in DA Active MO UNKNOWN 07-10 00:00: 00 [facility] Aspirin Allergy to substanc e Active Nausea 08-03 00:00: 00 Panoram ic - unspeci fied Aluminum Aspirin Allergy to substanc e Active Nausea 08-03 00:00: 00 [facility] ic - unspeci fied SULFAMET HOXAZOLE -TRIMETH OPRIM Allergy to substanc e Active Other 08-03 00:00: 00 [facility]oram ic - unspeci fied iodine DA Active U 11-07 00:00: 00 [facility] penicill in G DA Active AR 07-09 00:00: 00 [facility] iodine DA Active AR 07-09 00:00: 00 [facility] aspirin DA Active AR 02-05 00:00: 00 [facility] Sulfa (Sulfona mide Antibiot ics) DA Active AR 02-05 00:00: 00 [facility] codeine DA Active AR 02-05 00:00: 00 [facility] Sulfa (Sulfona mide Antibiot ics) DA Active MO 08-08 00:00: 00 [facility] codeine DA Active MO 08-08 00:00: 00 [facility] trimetho prim DA Active SV 08-08 00:00: 00 [facility] SULFA (SULFONA MIDE ANTIBIOT ICS) Allergy to [...] ID Source 2018-10-09 09:43:00 Inpatient Chele Calvert [facility] MED [id number] [facility] 2024-08-28 00:00:00 2024-08-28 00:00:00 Toñito Mcnair MD: [address], [place] [address] , Ph. PANORAMIC [facility] [place] [id number] [id number] Panoram ic - unspeci [facility] 2024-02-01 00:00:00 2024-02-01 00:00:00 Toñito Mcnair MD: [address], [place] [address] , Ph. PANORAMIC [facility] [place] [phone] [id number] Panoram ic - unspeci [facility] 2023-08-03 00:00:00 2023-08-03 00:00:00 Outpatient Nooruddin_K [facility]KS[facility] PAN[facility] [id number] [facility] 2023-07-10 13:07:00 2023-07-10 14:09:00 Emergency EM Cole Keyla [facility] ER [id number] [facility] 2023-05-04 00:00:00 2023-05-04 00:00:00 Outpatient Nooruddin_K PANKSST PANKSST [id number] PANKSST 2018-10-31 15:21:00 2018-11-02 15:23:00 Inpatient Chele Calvert [facility] [id number] [facility] 2018-10-09 09:43:00 2018-10-21 12:06:00 Inpatient Chele Calvert [facility] MED [id number] [facility] Results Test Description Test Time Test Comments Results Result Co mments Source Panoramic - unspecifiedRenal function 2000 panel - Serum or [id number] 00:00:00* Test Item Value Reference Range Interpretation [...] Creatinine-based formula (CKD-EPI 2020) (test code = 83008-6) 65 mL/min/1.73 >59 Urea nitrogen/Creatinine [Ma ss [...] in Serum or Plasma (test code = 2027-9) 30 mmol/L 20-29 H Calcium [Mass/volume] in Ser um or Plasma (test code = 89118-9) 9.6 mg/dL 8.7-10.3 Phosphate [Mass/volume] in Serum or Plasma (test code = 2777-1) 3.3 mg/dL 3.0-4.3 Albumin [Mass/volume] in Ser um or Plasma (test code = 1751-7) 3.7 g/dL 3.7-4.7 Panoramic - unspecifiedProtein and creatinine panel - [id number] 00:00:00* Test Item Value Reference Range Interpretation [...] = PROCAL) < 0.05 ng/mL 0.00-0.50 N [id number] 14:44:00* Test Item Value Reference Range Interpretation [...] doses of Biotin. - XR CHEST 1 [id number] 10:12:00Patient Name: GABBIE CASTANEDA Unit No: [id number] EXAMS: CPT CODE: [id number] XR CHEST 1 V 36462 Reason: f/u cxr History: f/u cxr. Technique: 1 view of chest. Comparison: CT angiography chest studydated 11/07/2018, one view chest study dated 04/03/2019. Findings: HEART AND MEDIASTINUM: Within normal limits. LUNGS: There is a left lower lung density unchanged. Impression: 1. Left lower lung density unchanged. Atelectasis versus pneumonia are considerations. at 1012 Reported and signed by: Bryson Swenson MD CC: Paul Baeza MD; Chele Bass; Micaela Aggarwal DO Technologist: Ginger Arguello RT Trscrpt Dt/ (1012)[id number] Orig Print D/T: S: 04/04/2019 (1015) [facility] NAME: GABBIE CASTANEDA [address] PHYS: Micaela Dailey DO [facility] [place] [address] : 1940 AGE: 78 SEX: F LOC: SONAM 1 PHONE #: [phone] EXAM DATE: 04/04/2019 STATUS: ADM IN FAX #: RADNO: DC Dt: PAGE 1 Signed ReportBASIC METABOLIC [id number] 08:53:00* Test Item Value Reference Range Interpretation [...] 8.7-10.5 N : add it to AM [id number] 08:53:00* Test Item Value Reference Range Interpretation Comme nts MAGNESIUM (test code = MAG) 2.2 MG/DL 1.8-2.4 N : add it to AM [id number] 08:53:00* Test Item Value Reference Range Interpretation [...] : add it to AM labBASIC METABOLIC [id number] 08:35:00* Test Item Value Reference Range Interpretation [...] 8.7-10.5 N : add it to AM [id number] 08:35:00* Test Item Value Reference Range Interpretation Comme nts MAGNESIUM (test code = MAG) 2.2 MG/DL 1.8-2.4 N : add it to AM [id number] 08:35:00* Test Item Value Reference Range Interpretation Comme nts TROPONIN-I (test code = TROPI) NG/ML 0.00-0.06 : add it to AM labCBC W/AUTO [id number] 08:22:00* Test Item Value Reference Range Interpretation [...] 0.0 X10 3/uL 0.0-0.2 N TROPONIN I [id number] 01:30:00* Test Item Value Reference Range Interpretation Comme nts TROPONIN I RAPID (test code = TROPIRAP) 0.08 NG/ML 0.00-0.08 N Performed by cer tified boiler house operator at [facility] - The use of serial sampling and testing protocol is a recommended practice.- An elevated troponin level alone is often not sufficient for diagnosis of myocardial infarction. COMPREHENSIVE METABOLIC [id number] 23:35:00* Test Item Value Reference Range Interpretation [...] code = ALKP) 106 Units/L 50-136 N [id number] 23:35:00* Test Item Value Reference Range Interpretation Comme nts MAGNESIUM (test code = MAG) 2.1 MG/DL 1.8-2.4 N PROTHROMBIN [id number] 23:12:00* Test Item Value Reference Range Interpretation [...] with flex-stent *: 3.0 - 4.0(*) = 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 PradaxaTHROMBOPLASTIN TIME [id number] 23:12:00* Test Item Value Reference Range Interpretation Comme nts THROMBOPLASTIN TIME PARTIAL (test code = PTT) 31.6 SECONDS 22.5-35.3 N *Therapeutic lev el for heparin: 1.5 - 2.5 times the average patient value of 30.0 seconds. The aPTT tet should not be used to evaluate low moleculat weight heparin anticoagulant therapy. Is patient on anticoagulants? Pradaxa- XR CHEST 1 [id number] 23:08:00Patient Name: GABBIE CASTANEDA Unit No: [id number] EXAMS: CPT CODE: [id number] XR CHEST 1 V 01311 Reason: CHEST PAIN PROCEDURE INFORMATION: Exam: XR Chest, 1 View Exam date and time: 04/03/2019 10:24 PM Clinical history: 78 years old, female; Chest pain TECHNIQUE: Imaging protocol: XR of the chest Views: 1 view. COMPARISON: DX XR CHEST 2V 10/31/2018 3:49 PM FINDINGS: Lungs: Mild apical hyperlucency suspicious for possible COPD Pulmonary vasculature grossly normal. Chronic blunting of the leftlateral costophrenic angle suggesting chronic pleural scarring and [...] Suspect underlying COPD. at 2308 Reported and signed by: Nadir BOOTH CC: Nilson Kerr MD; Chele Bass Technologist: Ashley Diggs RT Trscrpt Dt/ (2307)CHANTE.NOMAN Orig Print D/T: S: 04/03/2019 (2304) [facility] [address]: [place] [address] : 1940 AGE: 78 SEX: F LOC: MARANDA PHONE #: [phone] EXAM DATE: 04/03/2019 STATUS: REG ER FAX #: RAD NO: DC Dt: PAGE 1 Signed ReportTROPONIN I [id number] 23:06:00* Test Item Value Reference Range Interpretation Comme nts TROPONIN I RAPID (test code = TROPIRAP) 0.07 NG/ML 0.00-0.08 N Performed by cer tified boiler house operator at [facility] - The use of serial sampling and testing protocol is a recommended practice.- An elevated troponin level alone is often not sufficient for diagnosis of myocardial infarction. CBC W/AUTO [id number] 23:03:00* Test Item Value Reference Range Interpretation [...] 0.0 X10 3/uL 0.0-0.2 N BASIC METABOLIC [id number] 23:24:00* Test Item Value Reference Range Interpretation [...] CA) 10.0 MG/DL 8.7-10.5 N BASIC METABOLIC [id number] 23:13:00* Test Item Value Reference Range Interpretation [...] CA) 10.0 MG/DL 8.7-10.5 N CBC W/AUTO [id number] 22:55:00* Test Item Value Reference Range Interpretation [...] 0.0 X10 3/uL 0.0-0.2 N - CTA [id number] 19:05:00Patient Name: GABBIE CASTANEDA Unit No: [id number] EXAMS: CPT CODE: [id number] CTA CHEST 37747 Reason: PULMONARY EMBOLISM PROTOCOL:RO6. EXAM: - CTA [...] normal. Subsegmental atelectasis of lung bases identified, worseon the left with also involvement of middle [...] since previous study. Additional chronic findings of chest and upper abdomen as noted. at 1905 Reported and signed by: Tanya Azevedo MD CC: Chele Bass Technologist: Ramon Yeager CT Trscrpt Dt/ (1904)t.SDR.NH41 Orig Print D/T: S: 11/07/2018 (1907) CTDI: DLP: [facility] NAME: GABBIE CASTANEDA [address] PHYS: [email or web address] - [place] [address] : 1940 AGE: 78 SEX: F LOC: D[facility] PHONE #: [phone] EXAM DATE: 11/07/2018 STATUS: REG CLI FAX #: RAD NO: DC Dt: PAGE 1 Signed Report- CTA [id number] 19:05:00Patient Name: GABBIE CASTANEDA Unit No: [id number] EXAMS: CPT CODE: [id number] CTA CHEST 84047 Reason: PULMONARY EMBOLISM PROTOCOL:RO6. EXAM: - CTA CHEST REASON FOR EXAM: PULMONARY EMBOLISM PROTOCOL:RO6.02 SOB COMPARISON: CT angiogram chest exam 07/12/2017. Techniques: 2.5 mm axial images of CT angiogram chest study performed after administration 80 cc Isovue-370 IV contrast. Coronal, sagittal, coronal MIP and 3-D CT angiogram chest reformation images obtained. FINDINGS: Pulmonary vasculatureis within normal limits without pulmonary embolus. Heart size is normal. There is no pericardial effusion. Calcified plaques of coronary arteries identified. Calcified plaques of aorta seen without aneurysm. Main pulmonary arteries are normal. Subsegmental atelectasis of lung bases identified, worse on the left with also involvement of middle lobe and lingular division of left upper lobe. Tracheaand main bronchi are normal. Thyroid gland and [...] embolus seen on current study. Subsegmental atelectasis iden tified bilaterally with significant improvement since previous study. Additional chronic findings of chest and upper abdomen as noted. at 1905 Reported and signed by: Tanya Azevedo MD CC: Chele Bass Technologist: Ramon GARCIA TrscrptDt/ (1904)KellenNH41 Orig Print D/T: S: 11/07/2018 (1907) CTDI: DLP: [facility] NAME: GABBIE CASTANEDA [address]: Chele Owens MD [place] [address]RKR: 1940 AGE: 78 SEX: F LOC: MACKENZIE PHONE #: [phone] EXAM DATE: 11/07/2018 STATUS: DEP CLI FAX #: RAD NO: DC Dt: PAGE 1 Signed [id number] 11:45:00* Test Item Value Reference Range Interpretation Comme nts GLUBED (test code = GLUBED) 97 MG/DL 65-99 N Performed by cer tified boiler house operator at [facility] [id number] 06:23:00* Test Item Value Reference Range Interpretation Comme nts GLUBED (test code = GLUBED) 92 MG/DL 65-99 N Performed by cer tified boiler house operator at [facility] COMPREHENSIVE METABOLIC [id number] 03:35:00* Test Item Value Reference Range Interpretation [...] code = ALKP) 71 Units/L 50-136 N [id number] 03:35:00* Test Item Value Reference Range Interpretation Comme nts MAGNESIUM (test code = MAG) 2.2 MG/DL 1.8-2.4 N CBC W/AUTO [id number] 02:51:00* Test Item Value Reference Range Interpretation [...] = NRBC#) 0.0 X10 3/uL 0.0-0.2 N [id number] 21:15:00* Test Item Value Reference Range Interpretation Comme nts GLUBED (test code = GLUBED) 145 MG/DL 65-99 H Performed by cer tified boiler house operator at [facility] [id number] 18:09:00* Test Item Value Reference Range Interpretation Comme nts GLUBED (test code = GLUBED) 123 MG/DL 65-99 H Performed by cer tified boiler house operator at [facility] [id number] 11:51:00* Test Item Value Reference Range Interpretation Comme nts GLUBED (test code = GLUBED) 111 MG/DL 65-99 H Performed by cer tified boiler house operator at [facility] UR SODIUM [id number] 06:36:00* Test Item Value Reference Range Interpretation Comme nts UR SODIUM RANDOM (test code = GRETEL) 22 MMOL/L No established reference range for random urine specimen. UR POTASSIUM [id number] 06:36:00* Test Item Value Reference Range Interpretation Comme nts UR POTASSIUM RANDOM (test code = KU) 14 MMOL/L No established reference range for random urine specimen. UR CHLORIDE [id number] 06:36:00* Test Item Value Reference Range Interpretation Comme nts UR CHLORIDE RANDOM (test code = CLU) 28 MMOL/L No established reference range for random urine specimen. UR UREA NITROGEN [id number] 06:36:00* Test Item Value Reference Range Interpretation Comme nts UR UREA NITROGEN RANDOM (test code = UUN) 559 MG/DL No established reference range for random urine specimen. UR CREATININE [id number] 06:36:00* Test Item Value Reference Range Interpretation Comme nts UR CREATININE RANDOM (test code = CREATU) 28.51 MG/DL No establis hed reference range for random urine specimen. [id number] 06:10:00* Test Item Value Reference Range Interpretation Comme nts GLUBED (test code = GLUBED) 90 MG/DL 65-99 N Performed by cer tified boiler house operator at [facility] COMPREHENSIVE METABOLIC [id number] 05:07:00* Test Item Value Reference Range Interpretation [...] code = ALKP) 79 Units/L 50-136 N [id number] 05:07:00* Test Item Value Reference Range Interpretation Comme nts MAGNESIUM (test code = MAG) 2.3 MG/DL 1.8-2.4 N CBC W/AUTO [id number] 04:31:00* Test Item Value Reference Range Interpretation [...] X10 3/uL 0.0-0.2 N UA RFLX MICROSCOPIC [id number] 20:22:00* Test Item Value Reference Range Interpretation [...] (test code = UACULT) UA RFLX MICROSCOPIC [id number] 20:22:00* Test Item Value Reference Range Interpretation [...] = UACULT) Criteria not met UR PROTEIN [id number] 20:14:00* Test Item Value Reference Range Interpretation Comme nts UR PROTEIN RANDOM (test code = PROTU) 22 MG/DL No establish ed reference range for random urine specimen. UR CREATININE [id number] 20:14:00* Test Item Value Reference Range Interpretation Comme nts UR CREATININE RANDOM (test code = CREATU) 93.52 MG/DL No establis hed reference range for random urine specimen. PROTEIN/CREATININE [id number] 20:14:00* Test Item Value Reference Range Interpretation Comme nts PROTEIN/CREATININE RATIO (te st code = P/CRATIO) 0.2 < 0.2 COMPREHENSIVE METABOLIC [id number] 17:20:00* Test Item Value Reference Range Interpretation [...] code = ALKP) 105 Units/L 50-136 N [id number] 17:20:00* Test Item Value Reference Range Interpretation Comme nts MAGNESIUM (test code = MAG) 2.6 MG/DL 1.8-2.4 H NT PRO-BRAIN NATRIURETIC [id number] 17:20:00* Test Item Value Reference Range Interpretation Comme nts NT PRO-BRAIN NATRIURETIC PEPTI (test code = PROBNP) 624 PG/ML 0-450 H Results of this assay method may be falsely depressed orelevated if patient is taking high doses of Biotin. - US RETROPERITONEAL [id number] 17:06:00Patient Name: GABBIE CASTANEDA Unit No: [id number] EXAMS: CPT CODE: [id number] US RETROPERITONEAL COM 07561 - US RETROPERITONEAL COM 10/31/2018 3:55 PM [...] measuring only estimated 6 mL volume. Impression: Low-end- normal kidney sizes with medical renal disease although no hydronephrosis. Small bladder. at 1706 Reported and signed by: Piotr Amin MD CC: Jose Tom DO; Chele Bass Technologist: Marylou PHILLIPS Trnscrbd D/ (1706) Lois Orig Print D/T: S: 10/31/2018 (4250) Probe: [facility] NAME: GREGORY CASTANEDA [address] PHYS: NGUTH.1 - Jose Tom DO [address] [place] [address] : 1940 AGE: 78 SEX: F LOC: SouravCAMRYN 3 PHONE #: [phone] EXAM DATE: 10/31/2018 STATUS: ADMIN FAX #: RAD NO: Page 1 Signed Report- US RETROPERITONEAL [id number] 17:06:00Patient Name: GABBIE CASTANEDA Unit No: [id number] EXAMS: CPT CODE: [id number] US RETROPERITONEAL COM 08120 - US RETROPERITONEAL COM 10/31/2018 3:55 PM Indication: Acute kidney injury COMPARISON: Noneprior FINDINGS: These are within normal limits for age, the right 9.2 x 4.6 x 4.3 cm with 7 mm echogenic cortex, the left 8.3 x 4.6 x 4.4 cm with 8 mm echogenic cortex. No hydronephrosis seen on either side. The bladder is not well distended measuring only estimated 6 mL volume. Impression: Qzy-zod-tqwmib kidney sizes with medical renal disease although no hydronephrosis. Small bladder. at 1706 Reported and signed by: Piotr Amin MD CC: Jose Tom DO; Chele Bass Technologist: Marylou Barron Trnscrbd D/ (1706) tASHUTOSH Orig Print D/T: S: 10/31/2018 (1717) Probe: [facility] NAME: GABBIE CASTANEDA [address] [employer] [employer] PHYS: NGUTH.1 - Jose Tom DO [address] [place] [address] : 1940 AGE: 78 SEX: F LOC: D.Y314 1 PHONE #: [phone] EXAM DATE: 10/31/2018 STATUS: DIS IN FAX #: RAD NO: Page 1 Signed Report- CT ABD PELVIS W/O [id number] 16:58:00Patient Name: GABBIE CASTANEDA Unit No: [id number] EXAMS: CPT CODE: [id number] CT ABD PELVIS W/O CONT 68493 Reason: SHEBA and ABD pain - CT ABD PELVIS W/O CONT 10/31/2018 3:55 PM Indication: Acute kidney injury CT abdomen and pelvis kidney stone protocol CT abdomen and pelvis kidney stone protocol COMPARISON:OMPARISON: Routine scanning of the abdomen and pelvis on the kidney stone protocol with no oral nor intravenous contrast. FINDINGS: I see no radiopaque urinary calculi nor evidence of urinarytract obstruction. Chronically dilated left lower pole calyces. [...] signed by: Piotr Amin MD CC: Jose Molinauyen ; Chele Bass Technologist: Kayli Fuentes RT; Dayami Mg CT Trscrpt Dt/ (3496)t.RYANE Orig Print D/T: S: 10/31/2018 (2653) CTDI: DLP: [facility] NAME: GABBIE CASTANEDA [address] PHYS: LINDAUTH.1 - Jose Tom DO [address] [place] [address] : 1940 AGE: 78 SEX: F LOC: JOEL 3 PHONE #: [phone] EXAM DATE: 10/31/2018 STATUS: ADM IN FAX #: RAD NO: DC Dt: PAGE 1 Signed Report- CT ABD PELVIS W/O [id number] 16:58:00 Patient Name: GABBIE CASTANEDA Unit No: [id number] EXAMS: CPT CODE: [id number] CT ABD PELVIS W/O CONT 90851 Reason: SHEBA and ABD pain - CT [...] MD CC: Jose Tom DO; Chele Bass T echnologist: Kayli Fuentes RT; Dayami Mg CT Trscrpt Dt/ (3098)KellenPKE Orig Print D/T: S: 10/31/2018 (1702) CTDI: DLP: [facility] NAME: GABBIE CASTANEDA [address] PHYS: NGUTH.1 - Jose Tom DO [address] [place] [address] : 1940 AGE: 78 SEX: F LOC: D.Y314 1 PHONE #: [phone] EXAM DATE: 10/31/2018 STATUS: DIS IN FAX #: RAD NO: DCDt: 11/02/2018 PAGE 1 Signed Report- XR CHEST 2 [id number] 16:24:00 Patient Name: GABBIE CASTANEDA Unit No: [id number] EXAMS: CPT CODE: [id number] XR CHEST 2 V 01865 Reason: SOB INDICATION: Shortness of breath. COMPARISON: [...] Bass Technologist: Ashley Diggs RT Trscrpt Dt/ (9264)KellenMWM2 Orig Print D/T: S: 10/31/2018 (7597) [facility] NAME: GABBIE CASTANEDA [address] PHYS: NGUTH.1 - Jose Tom DO [address] [place] [address] : 1940 AGE: 78 SEX: F : JOEL 3 PHONE #: [phone] EXAM DATE: 10/31/2018 STATUS: ADM IN FAX #: RAD NO: DC Dt: PAGE 1 Signed Report- XR CHEST 2 [id number] 16:24:00Patient Name: GABBIE CASTANEDA Unit No: [id number] EXAMS: CPT CODE: [id number] XR CHEST 2 V 20085 Reason: SOB INDICATION: Shortness of breath. COMPARISON: [...] Bass Technologist: Ashley Diggs RT Trscrpt Dt/ (3732)tGHAZALMWM2 Orig Print D/T: S: 10/31/2018 (2123) [facility] NAME: GABBIE CASTANEDA [address] PHYS: NGUTH.1 - Jose Tom DO [address] [place] [address] : 1940 AGE: 78 SEX: F : D.Y314 1 PHONE #: [phone] EXAM DATE: 10/31/2018 STATUS: DIS IN FAX #: RAD NO: DC Dt: 11/02/2018 PAGE 1 Signed ReportCBC W/AUTO [id number] 16:01:00* Test Item Value Reference Range Interpretation [...] = NRBC#) 0.0 X10 3/uL 0.0-0.2 N [id number] 10:16:00* Test Item Value Reference Range Interpretation Comme nts GLUBED (test code = GLUBED) 100 MG/DL 65-99 H Performed by cer tified boiler house operator at [facility] [id number] 06:24:00* Test Item Value Reference Range Interpretation Comme nts GLUBED (test code = GLUBED) 81 MG/DL 65-99 N Performed by eliazar mancilla boiler house operator at [facility] COMPREHENSIVE METABOLIC [id number] 03:59:00* Test Item Value Reference Range Interpretation [...] code = ALKP) 93 Units/L 50-136 N [id number] 03:59:00* Test Item Value Reference Range Interpretation Comme nts MAGNESIUM (test code = MAG) 2.3 MG/DL 1.8-2.4 N CBC W/AUTO [id number] 03:46:00* Test Item Value Reference Range Interpretation [...] = NRBC#) 0.0 X10 3/uL 0.0-0.2 N [id number] 20:25:00* Test Item Value Reference Range Interpretation Comme nts GLUBED (test code = GLUBED) 113 MG/DL 65-99 H Performed by cer tified boiler house operator at [facility] [id number] 16:45:00* Test Item Value Reference Range Interpretation Comme nts GLUBED (test code = GLUBED) 111 MG/DL 65-99 H Performed by cer tified boiler house operator at [facility] [id number] 10:49:00* Test Item Value Reference Range Interpretation Comme nts GLUBED (test code = GLUBED) 123 MG/DL 65-99 H Performed by cer tified boiler house operator at [facility] [id number] 06:20:00* Test Item Value Reference Range Interpretation Comme nts GLUBED (test code = GLUBED) 102 MG/DL 65-99 H Performed by cer tified boiler house operator at [facility] COMPREHENSIVE METABOLIC [id number] 04:09:00* Test Item Value Reference Range Interpretation [...] code = ALKP) 94 Units/L 50-136 N [id number] 04:09:00* Test Item Value Reference Range Interpretation Comme nts MAGNESIUM (test code = MAG) 2.1 MG/DL 1.8-2.4 N CBC W/AUTO [id number] 03:47:00* Test Item Value Reference Range Interpretation [...] = NRBC#) 0.0 X10 3/uL 0.0-0.2 N [id number] 20:32:00* Test Item Value Reference Range Interpretation Comme nts GLUBED (test code = GLUBED) 94 MG/DL 65-99 N Performed by cer tified boiler house operator at [facility] [id number] 16:49:00* Test Item Value Reference Range Interpretation Comme nts GLUBED (test code = GLUBED) 96 MG/DL 65-99 N Performed by cer tified boiler house operator at [facility] [id number] 11:57:00* Test Item Value Reference Range Interpretation Comme nts GLUBED (test code = GLUBED) 136 MG/DL 65-99 H Performed by cer tified boiler house operator at [facility] COMPREHENSIVE METABOLIC [id number] 07:28:00* Test Item Value Reference Range Interpretation [...] code = ALKP) 88 Units/L 50-136 N [id number] 07:28:00* Test Item Value Reference Range Interpretation Comme nts MAGNESIUM (test code = MAG) 2.1 MG/DL 1.8-2.4 N CBC W/AUTO [id number] 07:26:00* Test Item Value Reference Range Interpretation [...] = NRBC#) 0.0 X10 3/uL 0.0-0.2 N [id number] 06:12:00* Test Item Value Reference Range Interpretation Comme nts GLUBED (test code = GLUBED) 95 MG/DL 65-99 N Performed by cer tified boiler house operator at [facility] [id number] 21:07:00* Test Item Value Reference Range Interpretation Comme nts GLUBED (test code = GLUBED) 89 MG/DL 65-99 N Performed by cer tified boiler house operator at [facility] [id number] 16:54:00* Test Item Value Reference Range Interpretation Comme nts GLUBED (test code = GLUBED) 122 MG/DL 65-99 H Performed by cer tified boiler house operator at [facility] - DUP VEIN UNI/[id number] 15:41:00Patient Name: GABBIE CASTANEDA Unit No: [id number] EXAMS: CPT CODE: [id number] DUP VEIN UNI/LTD 55735 Technique: The right upper extremity veins were [...] vein. Discussed with the patient's floor nurse, Armando,who will relay the results to the patient's physician. at 1541 Reported and signed by: Zhou Dallas MD CC: Vasquez Bass Technologist: Horace PHILLIPS Trnscrbd D/ (9926) [email or web address] Orig Print D/T: S: 10/18/2018 (6592) Probe: [facility] NAME: GABBIE CASTANEDA [address] PH[address]: [place] [address] : 1940 AGE: 78 SEX: F LOC: D.Y307 1 PHONE #: [phone] EXAM DATE: 10/18/2018 STATUS: ADM IN FAX #: RAD NO: Page 1 Signed Report- DUP VEIN UNI/[id number] 15:41:00Patient Name: GABBIE CASTANEDA Unit No: [id number] EXAMS: CPT CODE: [id number] DUP VEIN UNI/LTD 82327 Technique: The right upper extremity veins were [...] the results to the patient's physician. at 5085 Reported and signed by: Zhou Dallas MD CC: Vasquez Noel DO; Chele Bass Technologist: Horace PHILLIPS Trnscrbd D/ (1482) t.[email or web address] Orig Print D/T: S: 10/18/2018 (2563) Probe: [facility] NAME: GABBIE CASTANEDA [address]: [place] [place] [address] : 1940 AGE: 78 SEX: F LOC: D.Y307 1 PHONE #: [phone] EXAM DATE: 10/18/2018 STATUS: DIS IN FAX #: RAD NO: Page 1 Signed [id number] 10:37:00* Test Item Value Reference Range Interpretation Comme nts GLUBED (test code = GLUBED) 131 MG/DL 65-99 H Performed by cer tified boiler house operator at [facility] [id number] 06:08:00* Test Item Value Reference Range Interpretation Comme nts GLUBED (test code = GLUBED) 94 MG/DL 65-99 N Performed by cer tified boiler house operator at [facility] COMPREHENSIVE METABOLIC [id number] 04:45:00* Test Item Value Reference Range Interpretation [...] code = ALKP) 95 Units/L 50-136 N [id number] 04:45:00* Test Item Value Reference Range Interpretation Comme nts MAGNESIUM (test code = MAG) 2.1 MG/DL 1.8-2.4 N CBC W/AUTO [id number] 04:26:00* Test Item Value Reference Range Interpretation [...] = NRBC#) 0.0 X10 3/uL 0.0-0.2 N [id number] 21:21:00* Test Item Value Reference Range Interpretation Comme nts GLUBED (test code = GLUBED) 95 MG/DL 65-99 N Performed by cer tified boiler house operator at [facility] [id number] 17:04:00* Test Item Value Reference Range Interpretation Comme nts GLUBED (test code = GLUBED) 138 MG/DL 65-99 H Performed by cer tified boiler house operator at [facility] [id number] 11:34:00* Test Item Value Reference Range Interpretation Comme nts GLUBED (test code = GLUBED) 112 MG/DL 65-99 H Performed by cer tified boiler house operator at [facility] [id number] 06:39:00* Test Item Value Reference Range Interpretation Comme nts GLUBED (test code = GLUBED) 89 MG/DL 65-99 N Performed by cer tified boiler house operator at [facility] COMPREHENSIVE METABOLIC [id number] 04:36:00* Test Item Value Reference Range Interpretation [...] code = ALKP) 89 Units/L 50-136 N [id number] 04:36:00* Test Item Value Reference Range Interpretation Comme nts MAGNESIUM (test code = MAG) 2.0 MG/DL 1.8-2.4 N CBC W/AUTO [id number] 04:04:00* Test Item Value Reference Range Interpretation [...] = NRBC#) 0.0 X10 3/uL 0.0-0.2 N [id number] 21:53:00* Test Item Value Reference Range Interpretation Comme nts GLUBED (test code = GLUBED) 141 MG/DL 65-99 H Performed by cer tified boiler house operator at [facility] [id number] 16:40:00* Test Item Value Reference Range Interpretation Comme nts GLUBED (test code = GLUBED) 98 MG/DL 65-99 N Performed by cer tified boiler house operator at [facility] [id number] 12:15:00* Test Item Value Reference Range Interpretation Comme nts GLUBED (test code = GLUBED) 87 MG/DL 65-99 N Performed by cer tified boiler house operator at [facility] [id number] 06:42:00* Test Item Value Reference Range Interpretation Comme nts GLUBED (test code = GLUBED) 108 MG/DL 65-99 H Performed by cer tified boiler house operator at [facility] COMPREHENSIVE METABOLIC [id number] 05:27:00* Test Item Value Reference Range Interpretation [...] code = ALKP) 81 Units/L 50-136 N [id number] 05:27:00* Test Item Value Reference Range Interpretation Comme nts MAGNESIUM (test code = MAG) 2.2 MG/DL 1.8-2.4 N CBC W/AUTO [id number] 05:00:00* Test Item Value Reference Range Interpretation [...] = NRBC#) 0.0 X10 3/uL 0.0-0.2 N [id number] 20:51:00* Test Item Value Reference Range Interpretation Comme nts GLUBED (test code = GLUBED) 119 MG/DL 65-99 H Performed by cer tified boiler house operator at [facility] [id number] 16:32:00* Test Item Value Reference Range Interpretation Comme nts GLUBED (test code = GLUBED) 104 MG/DL 65-99 H Performed by cer tified boiler house operator at [facility] [id number] 11:30:00* Test Item Value Reference Range Interpretation Comme nts GLUBED (test code = GLUBED) 151 MG/DL 65-99 H Performed by cer tified boiler house operator at [facility] [id number] 06:43:00* Test Item Value Reference Range Interpretation Comme nts GLUBED (test code = GLUBED) 115 MG/DL 65-99 H Performed by cer tified boiler house operator at [facility] COMPREHENSIVE METABOLIC [id number] 05:20:00* Test Item Value Reference Range Interpretation [...] code = ALKP) 91 Units/L 50-136 N [id number] 05:20:00* Test Item Value Reference Range Interpretation Comme nts MAGNESIUM (test code = MAG) 2.2 MG/DL 1.8-2.4 N CBC W/AUTO [id number] 05:04:00* Test Item Value Reference Range Interpretation [...] = NRBC#) 0.0 X10 3/uL 0.0-0.2 N [id number] 21:39:00* Test Item Value Reference Range Interpretation Comme nts GLUBED (test code = GLUBED) 138 MG/DL 65-99 H Performed by cer tified boiler house operator at [facility] [id number] 15:20:00* Test Item Value Reference Range Interpretation Comme nts GLUBED (test code = GLUBED) 127 MG/DL 65-99 H Performed by cer tified boiler house operator at [facility] [id number] 11:16:00* Test Item Value Reference Range Interpretation Comme nts GLUBED (test code = GLUBED) 124 MG/DL 65-99 H Performed by cer tified boiler house operator at [facility] [id number] 06:33:00* Test Item Value Reference Range Interpretation Comme nts GLUBED (test code = GLUBED) 150 MG/DL 65-99 H Performed by cer tified boiler house operator at [facility] BASIC METABOLIC [id number] 03:45:00* Test Item Value Reference Range Interpretation [...] CA) 9.1 MG/DL 8.7-10.5 N CBC W/O [id number] 03:38:00* Test Item Value Reference Range Interpretation [...] code = MPV) 9.3 FL 7.4-10.4 N [id number] 21:54:00* Test Item Value Reference Range Interpretation Comme nts GLUBED (test code = GLUBED) 101 MG/DL 65-99 H Performed by cer tified boiler house operator at [facility] [id number] 17:35:00* Test Item Value Reference Range Interpretation Comme nts GLUBED (test code = GLUBED) 107 MG/DL 65-99 H Performed by cer tified boiler house operator at [facility] [id number] 11:36:00* Test Item Value Reference Range Interpretation Comme nts GLUBED (test code = GLUBED) 92 MG/DL 65-99 N Performed by cer tified boiler house operator at [facility] [id number] 06:11:00* Test Item Value Reference Range Interpretation Comme nts GLUBED (test code = GLUBED) 93 MG/DL 65-99 N Performed by cer laurent boiler house operator at [facility] BASIC METABOLIC [id number] 05:10:00* Test Item Value Reference Range Interpretation [...] CA) 9.0 MG/DL 8.7-10.5 N CBC W/O [id number] 03:55:00* Test Item Value Reference Range Interpretation [...] ode = MPV) 9.7 FL 7.4-10.4 N [id number] 20:53:00* Test Item Value Reference Range Interpretation Comme nts GLUBED (test code = GLUBED) 122 MG/DL 65-99 H Performed by cer tified boiler house operator at [facility] [id number] 17:20:00* Test Item Value Reference Range Interpretation Comme nts GLUBED (test code = GLUBED) 117 MG/DL 65-99 H Performed by cer tified boiler house operator at [facility] [id number] 11:19:00* Test Item Value Reference Range Interpretation Comme nts GLUBED (test code = GLUBED) 97 MG/DL 65-99 N Performed by cer tified boiler house operator at [facility] [id number] 06:30:00* Test Item Value Reference Range Interpretation Comme nts GLUBED (test code = GLUBED) 101 MG/DL 65-99 H Performed by cer tified boiler house operator at [facility] BASIC METABOLIC [id number] 04:12:00* Test Item Value Reference Range Interpretation [...] CA) 9.0 MG/DL 8.7-10.5 N CBC W/O [id number] 03:26:00* Test Item Value Reference Range Interpretation [...] ode = MPV) 9.5 FL 7.4-10.4 N [id number] 21:42:00* Test Item Value Reference Range Interpretation Comme nts GLUBED (test code = GLUBED) 113 MG/DL 65-99 H Performed by cer tified boiler house operator at [facility] [id number] 16:49:00* Test Item Value Reference Range Interpretation Comme nts GLUBED (test code = GLUBED) 113 MG/DL 65-99 H Performed by cer tified boiler house operator at [facility] VANCOMYCIN [id number] 13:47:00* Test Item Value Reference Range Interpretation Comme nts VANCOMYCIN TROUGH (test code = VANCT) 11.8 MCG/ML 10.0-20.0 N The accepted therapeutic level for Methicillin-Resistant Staph Aureus (MRSA) is 15-20 mcg/mL. [id number] 11:23:00* Test Item Value Reference Range Interpretation Comme nts GLUBED (test code = GLUBED) 146 MG/DL 65-99 H Performed by cer tified boiler house operator at [facility] [id number] 06:01:00* Test Item Value Reference Range Interpretation Comme nts GLUBED (test code = GLUBED) 95 MG/DL 65-99 N Performed by cer tified boiler house operator at [facility] COMPREHENSIVE METABOLIC [id number] 04:28:00* Test Item Value Reference Range Interpretation [...] code = ALKP) 87 Units/L 50-136 N [id number] 04:28:00* Test Item Value Reference Range Interpretation Comme nts PHOSPHOROUS (test code = PHOS) 3.2 MG/DL 2.5-4.9 N [id number] 04:28:00* Test Item Value Reference Range Interpretation Comme nts MAGNESIUM (test code = MAG) 2.0 MG/DL 1.8-2.4 N CBC W/O [id number] 03:43:00* Test Item Value Reference Range Interpretation [...] ode = MPV) 9.9 FL 7.4-10.4 N [id number] 22:14:00* Test Item Value Reference Range Interpretation Comme nts GLUBED (test code = GLUBED) 110 MG/DL 65-99 H Performed by cer tified boiler house operator at [facility] [id number] 16:36:00* Test Item Value Reference Range Interpretation Comme nts GLUBED (test code = GLUBED) 135 MG/DL 65-99 H Performed by cer tified boiler house operator at [facility] [id number] 11:50:00* Test Item Value Reference Range Interpretation Comme nts GLUBED (test code = GLUBED) 110 MG/DL 65-99 H Performed by cer tified boiler house operator at [facility] [id number] 10:30:00* Test Item Value Reference Range Interpretation [...] patient is taking high doses of Biotin. [id number] 09:51:00* Test Item Value Reference Range Interpretation Comme nts GLUBED (test code = GLUBED) 100 MG/DL 65-99 H Performed by cer tified boiler house operator at [facility] - XR SHOULDER 1 V [id number] 08:53:00Patient Name: GABBIE CASTANEDA Unit No: [id number] EXAMS: CPT CODE: [id number] XR SHOULDER 1 [place] LT [address] Reason: arm pain, - XR SHOULDER 1 V LT 10/10/2018 8:37 AM Indication: Arm pain FINDINGS: On this one AP view only, I see no visible abnormality. at 0853 Reported and signed by: Piotr mAin MD CC: Sadiq Bass Technologist: Tian Don RT Trscrpt Dt/ (0853)KellenPKE Orig Print D/T: S: 10/10/2018 (0856) [facility] NAME: GABBIE CASTANEDA [address] PH[address]: PERSH.02 - [place] [address] : 1940 AGE: 78 SEX: F LOC: D.Y307 1 PHONE #: [phone] EXAM DATE: 10/10/2018 STATUS: ADM IN FAX #: RAD NO: DC Dt: PAGE 1 Signed Report- XR SHOULDER 1 V [id number] 08:53:00Patient Name: GABBIE CASTANEDA Unit No: [id number] EXAMS: CPT CODE: [id number] XR SHOULDER 1 [place] LT [address] Reason: arm pain, - XR SHOULDER 1 V LT 10/10/2018 8:37 AM Indication: Arm pain FINDINGS: On this one AP view only, I see no visible abnormality. Electronically Signed by Piotr Amin MD on at 0853 Reported and signed by: Piotr Amin MD CC: Sadiq Bass Technologist: Tian Don RT Trscrpt Dt/ (0853)KellenPKE Orig Print D/T: S: 10/10/2018(0856) [facility] NAME: MIGUEL CASTANEDADOROTHY MCGHEE [address] PHYS: PERSH.Sadiq Johansen [place] [address] : 1940 AGE: 78 SEX: F LOC: D.Y307 1 PHONE #:[phone] EXAM DATE: 10/10/2018 STATUS: DIS IN FAX #: RAD NO: DC Dt: 10/21/2018 PAGE 1 Signed ReportBASIC METABOLIC [id number] 05:00:00* Test Item Value Reference Range Interpretation [...] CA) 8.5 MG/DL 8.7-10.5 L BASIC METABOLIC [id number] 04:29:00* Test Item Value Reference Range Interpretation [...] CA) 8.5 MG/DL 8.7-10.5 L CBC W/AUTO [id number] 03:53:00* Test Item Value Reference Range Interpretation [...] = NRBC#) 0.0 X10 3/uL 0.0-0.2 N [id number] 21:55:00* Test Item Value Reference Range Interpretation Comme nts GLUBED (test code = GLUBED) 109 MG/DL 65-99 H Performed by cer tified boiler house operator at [facility] [id number] 20:16:00* Test Item Value Reference Range Interpretation Comme nts GLUBED (test code = GLUBED) 117 MG/DL 65-99 H Performed by cer tified boiler house operator at [facility] - CT LOWER EXTRM W/O C [id number] 16:17:00Patient Name: GABBIE CASTANEDA LITZY Unit No: [id number] EXAMS: CPT CODE: [id number] CT LOWER EXTRM W/O SHOW OPERATIONS SUPERVISOR [address]27 Reason: CELLULITIS/HX HEMATOMA - CT LOWER EXTRM [...] and signed by: Piotr Amin MD CC: Christiano Bass Technologist: Mario Leggett CT; Nadir Glaser CT Trscrpt Dt/ (1617)Lois Orig Print D/T: S: 10/09/2018 (1621) CTDI: DLP: [facility] NAME: GABBIE CASTANEDALITZY [address] PHYS: PERSH. - [place] [address] : 1940 AGE: 78 SEX: F LOC: D.Y307 1 PHONE #: [phone] EXAM DATE: 10/09/2018 STATUS: ADM INFAX #: RAD NO: DC Dt: PAGE 1 Signed Report- CT LOWER EXTRM W/O C [id number] 16:17:00Patient Name: GABBIE CASTANEDA Unit No: [id number] EXAMS: CPT CODE: [id number] CT L[place]TRM W/[place] [address] Reason: CELLULITIS/HX HEMATOMA - CT LOWER EXTRM W/O C RT 10/09/2018 1:10 PM Indication: Cellulitis COMPARISON: 09/25/2018 CT FINDINGS: Noncontrast scanning with again present dense artifact from knee replacement, shows quite marked resolution of the right medial calf large hematoma. A wound V AC overlies. The underlying bones remain unremarkable. I see no radiopaque foreign body soft tissuegas bubbles. Impression: Quite marked reduction in right lower leg hematoma. at 1617 Reported and signed by: Piotr Amin MD CC: Sadiq Bates DO; Chele Bass Technologist: Mario Leggett CT; Nadir Glaser CT Trscrpt Dt/ (3675)t.PKE Orig Print D/T: S: 10/09/2018 (6536) CTDI: DLP: [facility] NAME: GREGORY CASTANEDA [address] [place] [employer] PHYS: PERSH. - [place] [address] : 1940 AGE: 78 SEX: F LOC: D.Y307 1 PHONE #: [phone] EXAM DATE: 10/09/2018 STATUS: DIS INFAX #: RAD NO: DC Dt: 10/21/2018 PAGE 1 Signed [id number] 12:26:00* Test Item Value Reference Range Interpretation Comme nts GLUBED (test code = GLUBED) 112 MG/DL 65-99 H Performed by cer tified boiler house operator at [facility] [id number] 06:39:00* Test Item Value Reference Range Interpretation Comme nts GLUBED (test code = GLUBED) 83 MG/DL 65-99 N Performed by [facility] tified boiler house operator at [facility] GLYCOSYLATED HEMOGLOBIN (HA1C)2018-10-09 03:59:00* Test Item Value Reference Range Interpretation Comme nts GLYCOSYLATED HEMOGLOBIN (HA1 C) (test code = GLYHGB) 5.9 % TOT HB 4.5-6.2 N BASIC METABOLIC [id number] 03:57:00* Test Item Value Reference Range Interpretation [...] CA) 8.4 MG/DL 8.7-10.5 L CBC W/AUTO [id number] 03:42:00* Test Item Value Reference Range Interpretation [...] = NRBC#) 0.0 X10 3/uL 0.0-0.2 N [id number] 21:22:00* Test Item Value Reference Range Interpretation Comme nts GLUBED (test code = GLUBED) 105 MG/DL 65-99 H Performed by cer tified boiler house operator at [facility] [id number] 17:07:00* Test Item Value Reference Range Interpretation Comme nts GLUBED (test code = GLUBED) 112 MG/DL 65-99 H Performed by cer tified boiler house operator at [facility] [id number] 11:09:00* Test Item Value Reference Range Interpretation Comme nts GLUBED (test code = GLUBED) 132 MG/DL 65-99 H Performed by cer tified boiler house operator at [facility] [id number] 06:27:00* Test Item Value Reference Range Interpretation Comme nts GLUBED (test code = GLUBED) 112 MG/DL 65-99 H Performed by cer tified boiler house operator at [facility] CBC W/AUTO [id number] 05:45:00* Test Item Value Reference Range Interpretation [...] 0.0 X10 3/uL 0.0-0.2 N BASIC METABOLIC [id number] 04:36:00* Test Item Value Reference Range Interpretation [...] code = CA) 8.9 MG/DL 8.7-10.5 N [id number] 22:03:00* Test Item Value Reference Range Interpretation Comme nts GLUBED (test code = GLUBED) 90 MG/DL 65-99 N Performed by cer tified boiler house operator at [facility] BASIC METABOLIC [id number] 20:09:00* Test Item Value Reference Range Interpretation [...] MG/DL 8.7-10.5 L PREVIOUS HEMOLYZED. RECOLLECTCBC W/AUTO [id number] 19:56:00* Test Item Value Reference Range Interpretation [...] X10 3/uL 0.0-0.2 N PREVIOUS HEMOLYZED. RECOLLECTPROTHROMBIN [id number] 19:56:00* Test Item Value Reference Range Interpretation [...] with flex-stent *: 3.0 - 4.0(*) = 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 LovenoxHGB [id number] 14:24:00* Test Item Value Reference Range Interpretation Comme nts HEMOGLOBIN (test code = HGB) 10.2 G/DL 12.0-16.0 L HEMATOCRIT (test code = HCT) 32.2 % 37-47 L MEAN CELL HGB CONCENTRATION (test code = MCHC) 31.7 G/DL 33-37 L COMPREHENSIVE METABOLIC [id number] 04:05:00* Test Item Value Reference Range Interpretation [...] code = ALKP) 84 Units/L 50-136 N [id number] 04:05:00* Test Item Value Reference Range Interpretation Comme nts MAGNESIUM (test code = MAG) 2.1 MG/DL 1.8-2.4 N CBC W/AUTO [id number] 03:37:00* Test Item Value Reference Range Interpretation [...] 0.0 X10 3/uL 0.0-0.2 N COMPREHENSIVE METABOLIC [id number] 06:21:00* Test Item Value Reference Range Interpretation [...] to previous draw please add to previous [id number] 06:21:00* Test Item Value Reference Range Interpretation [...] NRBC#) 0.0 X10 3/uL 0.0-0.2 N PROTHROMBIN [id number] 09:20:00* Test Item Value Reference Range Interpretation [...] with flex-stent *: 3.0 - 4.0(*) = 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 No [...] code = ALKP) 91 Units/L 50-136 N [id number] 09:16:00* Test Item Value Reference Range Interpretation Comme nts MAGNESIUM (test code = MAG) 2.2 MG/DL 1.8-2.4 N CBC W/AUTO [id number] 09:04:00* Test Item Value Reference Range Interpretation [...] NRBC#) 0.0 X10 3/uL 0.0-0.2 N HGB [id number] 15:36:00* Test Item Value Reference Range Interpretation Comme nts HEMOGLOBIN (test code = HGB) 9.6 G/DL 12.0-16.0 L HEMATOCRIT (test code = HCT) 30.5 % 37-47 L MEAN CELL HGB CONCENTRATION (test code = MCHC) 31.5 G/DL 33-37 L PROTHROMBIN [id number] 05:27:00* Test Item Value Reference Range Interpretation [...] with flex-stent *: 3.0 - 4.0(*) = 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 UnknownCOMPREHENSIVE METABOLIC [id number] 04:47:00* Test Item Value Reference Range Interpretation [...] ALKP) 98 Units/L 50-136 N CBC W/AUTO [id number] 04:15:00* Test Item Value Reference Range Interpretation [...] = NRBC#) 0.0 X10 3/uL 0.0-0.2 N [id number] 21:45:00* Test Item Value Reference Range Interpretation [...] is taking high doses of Biotin. PROTHROMBIN [id number] 03:57:00* Test Item Value Reference Range Interpretation [...] with flex-stent *: 3.0 - 4.0(*) = 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 No AnticoagulantsTHROMBOPLASTIN TIME PARTIAL 2018-09-26 03:57:00* Test Item Value Reference Range Interpretation Comme [facility] THROMBOPLASTIN TIME PARTIAL (test code = PTT) [...] code = ALKP) 107 Units/L 50-136 N [id number] 03:57:00* Test Item Value Reference Range Interpretation Comme nts PHOSPHOROUS (test code = PHOS) 3.3 MG/DL 2.5-4.9 N [id number] 03:57:00* Test Item Value Reference Range Interpretation Comme nts MAGNESIUM (test code = MAG) 2.0 MG/DL 1.8-2.4 N CALCIUM [id number] 03:51:00* Test Item Value Reference Range Interpretation Comme nts CALCIUM IONIZED (test code = AMARIS) 1.17 MMOL/L 1.12-1.32 N CBC W/AUTO [id number] 03:38:00* Test Item Value Reference Range Interpretation [...] = NRBC#) 0.0 X10 3/uL 0.0-0.2 N [id number] 20:07:00* Test Item Value Reference Range Interpretation Comme nts HEMOGLOBIN (test code = HGB) 6.9 G/DL 12.0-16.0 LL CV CALL [id number] 20:07:00* Test Item Value Reference Range Interpretation Comme nts CV CALL HEM (test code = CVCH) [id number] 20:07:00* Test Item Value Reference Range Interpretation Comme nts HEMOGLOBIN (test code = HGB) 6.9 G/DL 12.0-16.0 LL CV CALL [id number] 20:07:00* Test Item Value Reference Range Interpretation [facility] CALL HEM (test code = CVCH) Called Results called t o and read back by VEENA GOODWIN RN;.for analyte(s): HGB.at 200609/25/18; by TRUEP. PROTHROMBIN [id number] 14:56:00* Test Item Value Reference Range Interpretation [facility] PROTHROMBIN TIME PATIENT (test code = [...] with flex-stent *: 3.0 - 4.0(*) = 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 UnknownHGB [id number] 14:28:00* Test Item Value Reference Range Interpretation [facility] HEMOGLOBIN (test code = HGB) 8.0 G/DL 12.0-16.0 L HEMATOCRIT (test code = HCT) 26.1 % 37-47 L MEAN CELL HGB CONCENTRATION (test code = MCHC) 30.7 G/DL 33-37 L PROTHROMBIN [id number] 11:44:00* Test Item Value Reference Range Interpretation [facility] PROTHROMBIN TIME PATIENT (test code = [...] with flex-stent *: 3.0 - 4.0(*) = 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 UnknownCV CALL [id number] 11:44:00* Test Item Value Reference Range Interpretation [facility] CV CALL COAG (test code = CVCG) Called Results called t o and read back by DALTON LEIGH RN;.for analyte(s): PT .at 1144 - 09/25/18 by SERENAMISAEL. Is patient on anticoagulants? UnknownPROTHROMBIN [id number] 11:43:00* Test Item Value Reference Range Interpretation [facility] PROTHROMBIN TIME PATIENT (test code = PTP) [...] with flex-stent *: 3.0 - 4.0(*) = 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 UnknownCV CALL [id number] 11:43:00* Test Item Value Reference Range Interpretation [facility] CV CALL COAG (test code = CVCG) Is patient on anticoagulants? Unknown- CT LOWER EXTRM W/CON [id number] 08:32:00Patient Name: GABBIE CASTANEDA Unit No: [id number] EXAMS: CPT CODE: [id number] CT LOWER EXTRM W/CONRT 88778 Reason: pain, hematoma, on blood thinner INDICATION: [...] over the phone at the time of dictati on. at 0832 Reported and signed by: Zhou Dallas MD CC: Luke Hercules DO; Chele Bass Technologist: Nadir GARCIA Trscrpt Dt/ (0832)t.DAVIAN.MMC3 Orig Print D/T: S: 09/25/2018 (0835) CTDI: DLP: [facility] NAME: GABBIE CASTANEDA [address] PH[address]: [place] [address] : 1940 AGE: 78 SEX: F LOC: MARANDA PHONE #: [phone] EXAM DATE: 09/25/2018 STATUS: REG ER FAX #: RAD NO: DC Dt: PAGE 1 Signed Report- CT LOWER EXTRM W/CON [id number] 08:32:00Patient Name: GABBIE CASTANEDA Unit No: [id number] EXAMS: CPT CODE: [id number] CT LOWER EXTRM W/CONRT 82576 Reason: pain, hematoma, on blood thinner INDICATION: [...] Print D/T: S: 09/25/2018 (0835) CTDI: DLP: [facility] NAME: GABBIE CASTANEDA [address] PH[address]: [place] [address] : 1940 AGE: 78 SEX: F LOC: D.Y314 1 PHONE #: [phone] EXAM DATE: 09/25/2018 STATUS: DIS IN FAX #: RAD NO: DC Dt: 10/01/2018 PAGE 1 Signed ReportPROTHROMBIN [id number] 07:08:00* Test Item Value Reference Range Interpretation [...] with flex-stent *: 3.0 - 4.0(*) = 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 UnknownTHROMBOPLASTIN TIME [id number] 07:08:00* Test Item Value Reference Range Interpretation Comme nts THROMBOPLASTIN TIME PARTIAL (test code = PTT) 40.7 SECONDS 22.5-35.3 H *Therapeutic lev el for heparin: 1.5 - 2.5 times the average patient value of 30.0 seconds. The aPTT tet should not be used to evaluate low moleculat weight heparin anticoagulant therapy. Is patient on anticoagulants? UnknownCV CALL [id number] 07:08:00* Test Item Value Reference Range Interpretation Comme [facility] CV CALL COAG (test code = CVCG) Is patient on anticoagulants? 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 UnknownTHROMBOPLASTIN TIME [id number] 07:08:00* Test Item Value Reference Range Interpretation Comme [facility] THROMBOPLASTIN TIME PARTIAL (test code = PTT) 40.7 SECONDS 22.5-35.3 H *Therapeutic lev el for heparin: 1.5 - 2.5 times the average patient value of 30.0 seconds. The aPTT tet should not be used to evaluate low moleculat weight heparin anticoagulant therapy. Is patient on anticoagulants? UnknownCV CALL [id number] 07:08:00* Test Item Value Reference Range Interpretation Comme [facility] CV CALL COA (test code = CVCG) Called Results called t o and read back by NATALY WAY RN;.for analyte(s): [place] .[place] [address]/25/18 by SERENAMISAEL. Is patient on anticoagulants? 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 No fractures demonstrated. No joint effusion visible. IMPRESSION: Left knee replacement at 1948 Reported and signed by: Harvinder Johnson MD CC: Luke Dominguez MD; Chele Bass Technologist: Chelsi GARCIA; Mesfin Arellano RT Trscrpt Dt/ (1947)KellenDKW Orig Print D/T: S: 09/23/2018 (1950) [facility] NAME: GABBIE CASTANEDA [address]: [place] [address] : 1940 AGE: 78 SEX: F LOC: MARANDA PHONE #: [phone] EXAM DATE: 09/23/2018 STATUS: REG ER FAX #: RAD NO: DC Dt: PAGE 1 Signed Report- XR KNEE 4+V [id number] 19:48:00Patient Name: GABBIE CASTANEDA Unit No: [id number] EXAMS: CPT CODE: [id number] XR KNEE 4+V LT [address]228 Reason: ground level fall, pain 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 No fractures demonstrated. No joint effusion visible. IMPRESSION: Left knee replacement at 1948 Reported and signed by: Harvinder Johnson MD CC: Luke Dominguez MD; Chele Bass Technologist: Chelsi GARCIA; Mesfin Arellano RT Trscrpt Dt/ (1947)Manan Orig Print D/T: S: 09/23/2018 (1950) [facility] NAME: GABBIE CASTANEDA [address] [place] [employer] PHYS: BC. [place] [address] : 1940 AGE: 78 SEX: F LOC: MARANDA PHONE #: [phone] EXAM DATE: 09/23/2018 STATUS: [facility] ER FAX #: RAD NO: DC Dt: PAGE 1 Signed Report- XR ANKLE 3+V [id number] 19:47:00Patient Name: GABBIE CASTANEDA Unit No: [id number] EXAMS: CPT CODE: [id number] XR ANKLE 3+V LT 83[address] Reason: ground level fall, pain 4 views of the left ankle do not demonstrate a fracture. Tibiotalar joint is intact with no dislocation. There is mild degenerative sclerosis. There are scattered athe rosclerotic calcifications. IMPRESSION: No acute abnormality at 1947 Reported and signed by: Harvinder Johnson MD CC: Luke Dominguez MD; Cheel Bass Technologist: Chelsi GARCIA; Mesfin Arellano RT Trscrpt Dt/ (1946)tGHAZALDKOscar Orig Print D/T: S: 09/23/2018 (1950) [facility] NAME: GABBIE CASTANEDA [address]: [place] [address] : 1940 AGE: 78 SEX: F LOC: MARANDA PHONE #: [phone] EXAM DATE: 09/23/2018 STATUS: REG ER FAX #: RAD NO: DCDt: PAGE 1 Signed Report- XR ANKLE 3+V [id number] 19:47:00Patient Name: GABBIE CASTANEDA Unit No: [id number] EXAMS: CPT CODE: [id number] XR ANKLE 3+V [place] 22486 Reason: ground level fall, pain 4 views of the left ankle do not demonstrate a fracture. Tibiotalar joint is intact with no dislocation. There is mild degenerative sclerosis. There are scattered atherosclerotic calcifications. IMPRESSION: No acute abnormality at 1946 Reported and signed by: Harvinder Johnson MD CC: Luke Dominguez MD; Chele Bass Technologist: Chelsi GARCIA; Mesfin Arellano RT Trscrpt Dt/ (1946)t.DAVIAN.DKW Orig Print D/T: S: 09/23/2018 (1950) [facility] NAME: GABBIE CASTANEDA [address]: [place] [address] : 1940 AGE: 78 SEX: F LOC: MARANDA PHONE #: [phone] EXAM DATE: 09/23/2018 STATUS: DEP ER FAX #: RAD NO: DC Dt: PAGE 1 Signed Report- CT C-SPINE W/O [id number] 19:35:00Patient Name: GABBIE CASTANEDA Unit No: [id number] EXAMS: CPT CODE: [id number] CT C-SPINE W/O CONT 64302 Reason: ground level fall, pain Technique: 2.5 mm images through the cervical spine with sagittal and coronal reformats FINDINGS: There is straightening of the cervical spine with minimal anterolisthesis at C3-4. Facet articulations are intact. There is multilevel disc space narrowing. The dens is maintained. No fracture is identified. There are scattered atherosclerotic calcifications. IMPRESSION: No acute bony abnormality at 193 Reported and signed by: Harvinder Johnson MD CC: Luke Dominguez MD; Chele Bass Technologist:Ramon GARCIA Trscrpt Dt/ (1934)Manan Orig Print D/T: S: 09/23/2018 (1937) CTDI: DLP: [facility] NAME: GABBIE CASTANEDA [address] PH[address]: [email or web address] - [place] [address] : 1940 AGE: 78 SEX: F LOC: MARANDA PHONE #: [phone] EXAM DATE: 09/23/2018 STATUS: REG ER FAX #: RAD NO: DC Dt: PAGE 1 Signed Report- CT C-SPINE W/O [id number] 19:35:00Patient Name: GABBIE CASTANEDA Unit No: [id number] EXAMS: CPT CODE: [id number] CT C-SPINE W/O [id number] Reason: ground level fall, pain Technique: 2.5 [...] Dt/ (1934)Manan Orig Print D/T: S: 09/23/2018 (1937)CTDI: DLP: [facility] NAME: GABBIE CASTANEDA [address] PH[address]: [email or web address] - [place] [address] : 1940 AGE: 78 SEX: F LOC: MARANDA PHONE #: [phone] EXAM DATE: 09/23/2018 STATUS: [facility] ER FAX #: RAD NO: DC Dt: PAGE 1 Signed Report- CT HEAD/BRAIN W/O CONT 2018-09-23 19:32:00Patient Name: GABBIE CASTANEDA Unit No: [id number] EXAMS: CPT CODE: [id number] CT HEAD/BRAIN W/O CONT 61781 Reason: ground level fall, pain TECHNIQUE: Standard [...] Luke Dominguez MD; Chele Bass Technologist: Ramon Yeager CT Trscrpt Dt/ (1931)t.SDR.DKW Orig Print D/T: S: 09/23/2018 (1935) CTDI: DLP: [facility] NAME: GABBIE CASTANEDA [address] PHYS: BC.[place]andu - [place] [address] : 1940 AGE: 78 SEX: F LOC: MARANDA PHONE #: [phone] EXAM DATE: 09/23/2018 STATUS: [facility] ER FAX #: RAD NO: DC Dt: PAGE 1 Signed Report- CT HEAD/BRAIN W/O [id number] 19:32:00Patient Name: GABBIE CASTANEDA Unit No: [id number] EXAMS: CPT CODE: [id number] CT HEAD/BRAIN W/O CONT 07948 Reason: ground level fall, pain TECHNIQUE: Standard [...] Print D/T: S: 09/23/2018 (1935) CTDI: DLP: [facility] NAME: GABBIE CASTANEDA [address] [employer] PHYS: BC.Chandu - AlbertoLuke Echavarria [place] [address] : 1940 AGE: 78 SEX: F LOC: MARANDA PHONE #: [phone] EXAM DATE: 09/23/2018 STATUS: DEP ER FAX #: RAD NO: DC Dt: PAGE 1 Signed Report- DUP VEIN UNI/[id number] 03:47:00Patient Name: GABBIE CASTANEDA Unit No: [id number] EXAMS: CPT CODE: [id number] DUP VEIN UNI/LTD 17565 EXAM: US Duplex Right Lower Extremity Veins [...] VRAD.VR OrigPrint D/T: S: 12/04/2017 (346) Probe: [facility] NAME: GABBIE CASTANEDA [address]: [place] [address] : 1940 AGE: 77 SEX: F LOC: UNK PHONE #: [phone] EXAM DATE: 12/04/2017 STATUS: DEP ER FAX #: RAD NO: Page 1 Signed Report- DUP VEIN [id number] 11:53:00Patient Name: GABBIE CASTANEDA Unit No: [id number] EXAMS: CPT CODE: [id number] DUP VEIN LIS 23111 -DUP VEIN LIS 10/21/2017 10:43 AM RIGHT LEG VENOUS DOPPLER: The veins of the right lower extremity were interrogated from the common femoral vein to the popliteal vein. Flow is present in these vessels. They demonstrate normal compressibility and augmentation of flow with appropriate maneuvers. Normal respiratory variation of flow is noted. IMPRESSION: No evidence of deep venous thrombosis. LEFT LEG VENOUS DOPPLER: The veins of the left lower [...] Bass Technologist: Kassi Lambert Trnscrbd D/ (1153) t.CECILR.MK41 Orig Print D/T: S: 10/21/2017 (1157) Probe: [facility] NAME: GABBIE CASTANEDA [address]: [place] [address] : 1940 AGE: 77 SEX: F LOC: UNK PHONE #: [phone] EXAM DATE: 10/21/2017 STATUS: DEP CLI FAX #: RAD NO: Page 1 Signed Report- CTA [id number] 14:27:00Patient Name: GABBIE CASTANEDA Unit No: [id number] EXAMS: CPT CODE: [id number] CTA CHEST 59517 Reason: PE noticed incidentally on CT A/ - CTA CHEST 07/12/2017 11:[address] images were obtained through the chest after IV contrast - 100 mL of Isovue-370. Pulmonary embolus protocol was employed.Three-D rendering images were obtained and used for interpretation of the study. There is excellent opacification of the pulmonary arteries. There is a saddle embolus draped across the in pulmonary artery bifurcation, the majority of the clot appears to flow down to the left lower lobe arteries where it is nearly occlusive. A small amount of clot is seen in some of the upper lung branches. Additional clot burden is seen in some right lower lobe pulmonary artery branches. There is some parenchymal consolidation seen at both bases. On the right it enhances normally. On the left, much of it doesnot enhance. There are small bilateral pleural effusions. The heart size is normal. There is no pericardial effusion. Mediastinal and hilar regions do not show any abnormally enlarged lymph nodes. Visualized abdominal contents show increased sinus fat in the kidneys. Surgical clips are in the gallbladder fossa. IMPRESSION: 1. Saddle embolus in the main pulmonary arteries. 2. Bilateral lower lungand left upper lung, and embolize well. More significant clot burden seen in the left lower lobe pulmonary arteries with some nonenhancing parenchymal consolidation left base suspicious for pulmonaryinfarct. 3. Bibasilar pleural-parenchymal disease as described above. at 1420 Reported and signed by: Chele Reinoso MD CC: Chele Bass; Israel Tirado DO Technologist: Wagner Kowalski CT Trscrpt Dt/ (3573)t.MK41 O rig Print D/T: S: 07/12/2017 (8750) CTDI: DLP: [facility] NAME: GABBIE CASTANEDA [address] PHYS: Israel Castro [place] [address] : 1940 AGE: 76 SEX: F LOC: UNK PHONE #: [phone] EXAM DATE: 07/12/2017 STATUS: DIS IN FAX #: RAD NO: DC Dt: PAGE 1 Signed Report- DUP VEIN UNI/[id number] 18:35:00Patient Name: GABBIE CASTANEDA Unit No: [id number] EXAMS: CPT CODE: [id number] DUP VEIN UNI/LTD 99835 EXAM: - DUP VEIN UNI/LTD REASON FOR EXAM: PE on CT A/P COMPARISON: None. Techniques: Right lower extremity venous duplex ultrasound study performed. FINDINGS: Occlusive thrombus identified involving right superficial femoral vein and right popliteal vein. Right posterior tibial vein and peroneal vein are not visualized. Right common femoral vein and right deep femoral vein are patent. Right greater saphenous vein is patent. IMPRESSION: Extensive occlusive thrombus of right lower extremity as noted. Patient's nurse notified at time of dictation. FOR INTERNAL CODING PURPOSES ONLY RESULT CODE: CVR at 1835 Reported and signed by: Tanya Azevedo MD CC: Chele Bass; Israel Tirado DO Technologist: Immanuel Junior Trnscrbd D/ (1834) t.SDR.NH41 Orig Print D/T: S: 07/09/2017 (1837) Probe: [facility] NAME: GABBIE CASTANEDA [address] PHYS: Israel Castro DO R[address] [place] [address] : 1940 AGE: 76 SEX: F LOC: UNK PHONE #: [phone] EXAM DATE: 07/09/2017 STATUS: DIS IN FAX #: RAD NO: Page 1 Signed Report- CT ABD PELVIS W WO [id number] 12:40:00Patient Name: GABBIE CASTANEDA Unit No: [id number] EXAMS: CPT CODE: [id number] CT ABD PELVIS W WO CONT 19827 Reason: N13.30 HYDRONEPHROSIS - CT ABD PELVIS W WO CONT 07/09/2017 9:[address] images were obtained through the abdomen and pelvis after oral and IV contrast, 100 mL of Isovue-300. Coronal and sagittal reconstructions were obtained. The lung bases show an infiltrate in the left with some stranding on the right. More significantly, there is an intraluminal filling defect seen in the right lower lobe pulmonary artery. The heart size [...] symmetrically. There is increased sinus fat with mildparenchymal thinning. There is no khloe hydronephrosis on either side. There are some dilatation tothe inferior left collecting system, but only the inferior aspect of the left collecting system andit appears to transition to normal ureter across the UPJ. The GI tract is not obstructed. There arediverticula scattered about the sigmoid colon. Urinary bladder is normally distended. There is no free fluid or extraluminal gas. Musculoskeletal system shows mild loss of height of T11 IMPRESSION: 1. Nonocclusive, embolus to right lower lobe pulmonary artery. There is also left lower lobe infiltrate. 2. Diverticulosis. 3. Atherosclerosis. 4. Some focal dilatation to the inferior left collecting system without evidence of hydronephrosis or occlusion/obstruction elsewhere. This could be due to abifid collecting system with a UPJ stenosis. Notified patient's physician at time of dictation FOR INTERNAL CODING PURPOSES ONLY RESULT CODE: CVR ElectronicallySigned by Chele Reinoso MD on 07/09/2017 at 1240 Reported and signed by: Chele Reinoso MD CC: Chele Bass Technologist: Wagner GARCIA Trscrpt Dt/ (1000)KellenMK41 Orig Print D/T: S: 07/09/2017 (7018) CTDI: DLP: [facility] NAME: GABBIE CASTANEDA [address]: CARTER - [place] [address] : 1940 AGE: 76 SEX: F LOC: UNK PHONE #: [phone] EXAM DATE: 07/09/2017 STATUS: DIS IN FAX #: RAD NO: DC Dt:PAGE 1 Signed Report- MRI L-SPINE W/O [id number] 12:33:00Patient Name: GABBIE CASTANEDA Unit No: [id number] EXAMS: CPT CODE: [id number] MRI L-SPINE W/O [id number] Reason: BACK PAIN - MRI L-SPINE W/O [...] do not see visible signs of bony laminectomy. Impression: Graft opinion: Graft opinion: Graft opinion: Subcutaneous fat edema, otherwise No acute disease. at 1233 Reported and signedby: Piotr Amin MD CC: Chele Bass Technologist: Sonam CORONA RT Trscrpt Dt/ (2230)tGHAZALPKE Orig Print D/T: S: 07/06/2017 (4614) [facility] NAME: GABBIE CASTANEDA [address] PH[address]: STRMA.Josy [place] [address] : 1940 AGE: 76 SEX: FACCT NO: [id number] LOC: UNK PHONE #: [phone] EXAM DATE: 07/06/2017 STATUS: DEP CLI FAX #: RAD NO: DC Dt: PAGE 1 Signed Report- MRI T-SPINE W/O [id number] 12:26:00Patient Name: GABBIE CASTANEDA Unit No: [id number] EXAMS: CPT CODE: [id number] MRI T- SPINE W/O [id number] Reason: BACK PAIN - MRI T-SPINE W/O [...] signed by: Piotr Amin MD CC: Chele BassTechnologist: Sonam CORONA RT Trscrpt Dt/ (7889)Lois Orig Print D/T: S: 07/06/2017 (8064) [facility] NAME: GABBIE CASTANEDA [address] [employer] PHYS: STRMA.03 [place] [address] : 1940 AGE: 76 SEX: F LOC: UNK PHONE #:[phone] EXAM DATE: 07/06/2017 STATUS: DEP CLI FAX #: RAD NO: DC Dt: PAGE 1 Signed Report- XR RIBS UNI W/CXR 3+V [id number] 08:33:00 Patient Name: GABBIE CASTANEDA Unit No: [id number] EXAMS: CPT CODE: [id number] XR RIBS UNI W/CXR 3+V RT 05856 Reason: SEVERE COUGH AND RIGHT LATERAL RIB PAIN Findings: 4 views right RIBS demonstrates generalized demineralization. No acute displaced rib fractures visualized. Bibasilar atelectasis more severe on the right.. No pneumothorax. No definite pleural fluid. IMPRESSION: No acute displacedrib fracture identified. at 0833 Reported and signed by: Giorgi Issa MD CC: Thomas GASPAR; Luis Simpson MD Technologist: Ashley Diggs RT Trscrpt Dt/ (0433)tPATRICIA41 Orig Print D/T: S: 02/06/2017 (0836) [facility] NAME: GABBIE CASTANEDA [address]: [place] [address] : 1940 AGE: 76 SEX: F LOC: UNK PHONE #: [phone] EXAM DATE: 02/05/2017 STATUS: UNK FAX #: RAD NO: DC Dt: PAGE 1 Signed Report- NM BONE WHOLE [id number] 14:44:00Patient Name: GABBIE CASTANEDA Unit No: [id number] EXAMS: CPT CODE: [id number] NM BONE WHOLE BODY 20494 Reason: COMPRESSION FX--L SPINE - NM BONE WHOLE BODY 01/23/2016 8:00 AM Indication: Lumbar compression fracture COMPARISON: None. I do not even have any plain films to to correlate with nor what lumbar level is suspected as fracture site. FINDINGS: Head to toe whole body scanning 3 hours after 23 mCi technetium MDP FINDINGS: There appear to be 5 lumbar type vertebral bodies. Assuming this, there is left-sided L5-S1 increased activity on both sides of the disc space and is most likely degenerative/spondylosis related. There is mild transverse uptake in the "T11" vertebral body could be mildcompression fracture in the healing phase. There is diffuse degenerative uptake in the shoulders, feet, ankles, cervical spine, as well as left aspect of the mandible which is probably dental diseaserelated. IMPRESSION: Left presumed L5-S1 uptake probably degenerative. Correlation with plain films is needed. 2. Possible faint T11 compression fracture uptake. at 1444 Reported and signed by: Piotr Amin MD CC: Chele Bass Technologist: Chele LEAHY RT Trscrpt Dt/ (1444)KellenPKE Orig Print D/T: S: 01/23/2016 (1448) [facility] NAME: GABBIE CASTANEDA [address]: [place] [address] : 1940 AGE: 75 SEX: F LOC: UNK PHONE #: [phone] EXAM DATE: 01/23/2016 STATUS: UNK FAX #: RAD NO: DC Dt: PAGE 1 Signed Report Notes Date/Time Note Provider Source 2023-07-10 13:16:00 [facility] ([facility]) OR A CAMPUS OF [facility] EMERGENCY PROVIDER REPORT REPORT#:[id number] REPORT STATUS: Signed DATE:07/10/23 TIME: 1316 PATIENT: GABBIE CASTANEDA UNIT #: [id number] ROOM/BED: AGE: 82 SEX: F PCP PHYS: Haja Carnes MD SERVICE AUTHOR: Talon Cuba WOOD TILE INSTALLER, VP ACCOUNT DIRECTOR, BIG DATA ADMIN * ALL edits or amendments must be [...] Temp 97.1 07/10 1314 Pulse 74 07/10 1314 Resp 18 07/10 1314 Last Documented: Result Date Time Pulse Ox 97 07/10 1314 B/P 131/96 07/10 1314 B/P Mean 107 07/10 1314 Temp 97.1 07/10 1314 Pulse 74 07/10 1314 Resp 18 07/10 [...] STA 07/10 1315 DC Phosphate IM 07/10 131 Patient Discharge Departure Vital Signs/Condition Vital Signs First Documented: Result Date Time Pulse Ox 97 07/10 1314 B/P 131/96 07/10 1314 B/P Mean 107 07/10 1314 Temp 97.1 07/10 1314 Pulse 74 07/10 1314 Resp 18 07/10 1314 Last Documented: Result Date Time Pulse Ox 97 07/10 1314 B/P 131/96 07/10 1314 B/P Mean 107 07/10 1314 Temp 97.1 07/10 1314 Pulse 74 07/10 1314 Resp 18 07/10 1314 All vital signs available at the time [...] Saw Pt Alone I have reviewed the PA/SENIOR COST ESTIMATOR's note and plan of care. I was available for consultation as needed at all times during the patient's visit in the emergency department. I agree with the clinical impression, plan and disposition. at 2020 at 2331 RPT #:[id number] END OF REPORT [facility] 2019-04-04 14:50:00 [facility] ([facility]) Discharge Summary REPORT#:[id number] REPORT STATUS: Signed DATE:04/04/19 TIME: 1450 PATIENT: GABBIE CASTANEDA UNIT #: [id number] ROOM/BED: [place] [address] : [birth year] AGE: 78 SEX: F ATTEND: [...] Physician: Chele Bass MD at 1949 RPT #:[id number] END OF REPORT [facility] 2019-04-04 14:50:00 [facility] ([facility] Discharge Summary REPORT#:[id number] REPORT STATUS: Signed DATE:04/04/19 TIME: 1450 PATIENT: GABBIE CASTANEDA UNIT #: [id number] ROOM/BED: [place] [address] : [birth year] AGE: 78 SEX: F ATTEND: [...] Bass MD at 1949 at 0836 RPT #:[id number] END OF REPORT [facility] 2019-04-04 02:48:00 [facility] Hospitalist History Physical REPORT#:[id number] REPORT STATUS: Signed DATE:04/04/19 TIME: 0248 PATIENT: GABBIE CASTANEDA UNIT #: [id number] ROOM/BED: [place] [address] : [birth year] AGE: 78 SEX: F ATTEND: [...] or older: Former Smoker 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 No acute thoracic process. 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 No acute thoracic process. No [...] Eliquis, SCDs Code:Full Contatc: , Collin Castaneda [phone] Ran Walker 04/04/19 0533: Attestations Teaching Physician [...] (likely viral). 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 No acute thoracic process. No [...] Eliquis, SCDs Code:Full Contatc: , Collin Castaneda [phone] Ran Walker 04/04/19 0533: Attestations Teaching Physician [...] at 0524 at 0536 at 0836 RPT #:[id number] END OF REPORT [facility] 2019-04-03 21:45:00 [facility] ([facility]) OR A CAMPUS OF [facility] EMERGENCY PROVIDER REPORT REPORT#:[id number] REPORT STATUS: Signed DATE:04/03/19 TIME: 2144 PATIENT: GABBIE CASTANEDA UNIT #: [id number] ROOM/BED: [place] [address] AGE: 78 SEX: F PCP PHYS: Chele [...] Use Opiates (HYDROCODONE PRESCRIBED) 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 No acute thoracic process. No significant change from prior exam. 2. Chronic scarring or atelectasis in the left lateral costophrenic angle. 3. Suspect underlying COPD. Impression By: [email or web address] - Nadir Morin MD [facility] Lab Imaging Statement Laboratory radiographic studies reviewed and considered in the medical decision-making. ECG #1 Interpretation ECG Documented in MUSE Yes Date 04/03/19 Time 2971 Interpreted by ED physician NL ECG Interpretation [...] Admin Hydralazine HCl 5 MG ONCE ONE 04/04 0140 DC 04/04 IV 04/04 014 0140 Nitroglycerin 1 GM ONCE ONE 04/03 2250 DC 04/03 TOPICAL 04/03 2251 2251 Hydralazine HCl 5 MG ONCE ONE [...] on 04/04/19 at 0010 at 0543 RPT #:[id number] END OF REPORT [facility] 2018-11-20 21:49:00 [facility] ([facility]) OR A [facility] EMERGENCY PROVIDER REPORT REPORT#:[id number] REPORT STATUS: Signed DATE:11/20/18 TIME: 2148 PATIENT: GABBIE CASTANEDA UNIT #: [id number] ROOM/BED: AGE: 78 SEX: F PCP PHYS: [...] scribed by Higinio Jon on 11/20/18 at 9074 Past Medical History - Adult Stated Complaint [...] Use Opiates (HYDROCODONE PRESCRIBED) 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, 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, 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 Portions of this section were scribed [...] Pulse Ox 98 11/20 2340 B/P 114/64 11/21 2339 B/P Mean 80 [...] 11/20/182236: [Embedded Image Not Available] Laboratory Tests: 06/02 2237 Chemistry Sodium (133 - 145 MMOL/L) 134 [...] (Auto) (24 - 44 %) 6.1 L Davidson % (Auto) (0.0 - 4.0 %) 5.5 [...] Result Date Time Pulse Ox 98 11/20 2146 B/P 114/70 11/20 2146 B/P Mean 84 11/206 O2 Delivery Room air 11/20 2145 Temp 98.4 11/20 2145 Pulse 108 11/20 2145 Resp 16 11/20 2145 Last Documented: Result Date Time Pulse Ox 98 11/20 2340 B/P 114/64 11/20 2340 B/P Mean 80 11/20 2340 O2 Delivery Room air 11/21 2339 Temp [...] Physician Note Scribe Statement Higinio Jon, 11/20/18 5634, scribing for and in the presence of [Dr. Pate]. Signed By: Higinio Jon, 11/20/18 6665 Provider Scribed Statement I personally performed the services described in this documentation and reviewed the documentation that was dictated to the scribe(s) in my presence, and it accurately records my words and actions. Marilu Pate, 11/21/18 Portions of this section were scribed by Higinio Jon on 11/20/18 at 2341 at 0118 RPT #:[id number] END OF REPORT [facility] 2018-11-02 14:03:00 [facility] ([facility]) Hospitalist Discharge Summary REPORT#:[id number] REPORT STATUS: Signed DATE:11/02/18 TIME: 1403 PATIENT: GABBIE CASTANEDA UNIT #: [id number] ROOM/BED: Y314[address]1 : 42 AGE: 78 SEX: [...] Musculoskeletal: normal inspection, painless range of motion Neuro/NUCLEAR TECHNOLOGIST: alert, oriented X 3, CNII-XII intact, normal speech, reflexes equal bilat Lymphatics: axilla normal, inguinal normal, neck normal Psychiatry: normal affect, normal judgment/insight, normal mood at 1215 at 0855 RPT #:[id number] END OF REPORT [facility] 2018-11-02 05:52:00 [facility] ([facility]) Hospitalist Progress Note REPORT#:[id number] REPORT STATUS: Signed DATE:11/02/18 TIME: 0552 PATIENT: GABBIE CASTANEDA UNIT #: [id number] ROOM/BED: Y[address] : 42 AGE: 78 SEX: [...] MG DAILY@1800 PO Lactated Ringer's 1,000 ML .[id number] IV Hydrocodone Bitart/Acetaminophen 1 TAB TID PRN [...] Musculoskeletal: normal inspection, painless range of motion Neuro/NUCLEAR TECHNOLOGIST: alert, oriented X 3, CNII-XII intact, normal [...] % (Auto) (24 - 44 %) 34.8 Davidson % (Auto) (0.0 - 4.0 %) 11.1 [...] code. Dispo: discharge today at 1431 RPT #:[id number] END OF REPORT [facility] 2018-11-02 05:52:00 [facility] ([facility]) Hospitalist Progress Note REPORT#:[id number] REPORT STATUS: Signed DATE:11/02/18 TIME: 551 PATIENT: GABBIE CASTANEDA UNIT #: [id number] ROOM/BED: Y311 : 42 AGE: 78 SEX: F ATTEND: [...] MG DAILY@1800 PO Lactated Ringer's 1,000 ML .[id number] IV Hydrocodone Bitart/Acetaminophen 1 TAB TID PRN [...] Musculoskeletal: normal inspection, painless range of motion Neuro/NUCLEAR TECHNOLOGIST: alert, oriented X 3, CNII-XII intact, normal [...] - 2.2) 0.7 L Laboratory Tests 11/02 222 Hematology WBC (4.80 - 10.80 x10 3/uL) [...] % (Auto) (24 - 44 %) 34.8 Davidson % (Auto) (0.0 - 4.0 %) 11.1 [...] Dispo: discharge today at 1431 at 0831 RPT #:[id number] END OF REPORT [facility] 2018-11-01 06:05:00 [facility] ([facility]) Hospitalist Progress Note REPORT#:[id number] REPORT STATUS: Signed DATE:11/01/18 TIME: 06 PATIENT: GABBIE CASTANEDA UNIT #: [id number] ROOM/BED: Y314-1 : 42 AGE: 78 SEX: [...] MG DAILY@1800 PO Lactated Ringer's 1,000 ML .[id number] IV Lactated Ringer's 1,000 ML BOLUS ONCE [...] Musculoskeletal: normal inspection, painless range of motion Neuro/NUCLEAR TECHNOLOGIST: alert, oriented X 3, CNII-XII intact, normal [...] (24 - 44 %) 14.3 L 28.2 Davidson % (Auto) (0.0 - 4.0 %) 6.2 [...] (5.5 - 7.0) 5.0 L Ur Specific Fontana (1.001 - 1.035) 1.015 Urine Protein (NEGATIVE [...] evidence of acute cardiopulmonary disease. Impression By: KellenMW - Luke Matson MD ULTRASOUND - US RETROPERITONEAL COM 10/31 1617 Report Impression - Status: SIGNED Entered: 10/31/2018 1710 Impression: Maw-svi-cumvmr kidney sizes with medical renal disease although [...] code. Dispo: discharge tomorrow at 1436 RPT #:[id number] END OF REPORT [facility] 2018-11-01 06:05:00 [facility] ([facility]) Hospitalist Progress Note REPORT#:[id number] REPORT STATUS: Signed DATE:11/01/18 TIME: 06 PATIENT: GABBIE CASTANEDA UNIT #: [id number] ROOM/BED: Y3141 : 42 AGE: 78 SEX: F ATTEND: [...] earache, hearing loss, sore throat. Respiratory: Denies: [place] (dyspnea on exertion), hemoptysis, SOB. Cardiovascular: Reports: [...] MG DAILY@1800 PO Lactated Ringer's 1,000 ML .[id number] IV Lactated Ringer's 1,000 ML BOLUS ONCE [...] Musculoskeletal: normal inspection, painless range of motion Neuro/NUCLEAR TECHNOLOGIST: alert, oriented X 3, CNII-XII intact, normal [...] (24 - 44 %) 14.3 L 28.2 Davidson % (Auto) (0.0 - 4.0 %) 6.2 [...] (5.5 - 7.0) 5.0 L Ur Specific Fontana (1.001 - 1.035) 1.015 Urine Protein (NEGATIVE [...] - Status: SIGNED Entered: 10/31/2018 1710 Impression: Vem-hod-dheivz kidney sizes with medical renal disease although [...] discharge tomorrow at 1436 at 1531 RPT #:[id number] END OF REPORT [facility] 2018-10-31 15:04:00 [facility] ([facility]) Hospitalist History Physical REPORT#:[id number] REPORT STATUS: Signed DATE:10/31/18 TIME: 1504 PATIENT: GABBIE CASTANEDA UNIT #: [id number] ROOM/BED: [place] [address] : 42 AGE: 78 SEX: F ATTEND: [...] or older: Former Smoker 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 at 1740 at 1531 RPT #:[id number] END OF REPORT [facility] 2018-10-31 14:53:00 [facility] ([facility]) OR A CAMPUS OF [facility] EMERGENCY PROVIDER REPORT REPORT#:[id number] REPORT STATUS: Signed DATE:10/31/18 TIME: 1453 PATIENT: GABBIE CASTANEDA UNIT #: [id number] ROOM/BED: Y314-1 AGE: 78 SEX: F PCP PHYS: Chele Bass MD SERVICE AUTHOR: Carlo Ramirez SENIOR COST ESTIMATOR * ALL edits or amendments must be made on the electronic/computer document * JamesCarlo 10/31/18 5553: HPI-Back Pain 40 and Over General Confirmed Patient Yes Patient Type New patient Initial Greet Date/Time 10/31/18 1450 Presentation Chief Complaint Pain, lumbar, N/V/D Hx [...] and considered in the medical decision-making. 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 Clement] . Signed By: Holly Anthony, 10/31/18 1627 Portions of this section were scribed by Holly Anthony on 10/31/18 at 1626 at 1756 at 0705 RPT #:[id number] END OF REPORT [facility] 2018-10-21 10:13:00 [facility] ([facility]) Discharge Summary REPORT#:[id number] REPORT STATUS: Signed DATE:10/21/18 TIME: 1013 PATIENT: GABBIE CASTANEDA UNIT #: [id number] ROOM/BED: Y307-1 : 42 AGE: 78 SEX: [...] Condition: wound vac applied at 1623 RPT #:[id number] END OF REPORT [facility] 2018-10-21 10:13:00 [facility] ([facility]) Discharge Summary REPORT#:[id number] REPORT STATUS: Signed DATE:10/21/18 TIME: 1013 PATIENT: GABBIE CASTANEDA UNIT #: [id number] ROOM/BED: Y307-1 : 42 AGE: 78 SEX: [...] vac applied at 1623 at 0909 RPT #:[id number] END OF REPORT [facility] 2018-10-21 09:58:00 [facility] ([facility]) Hospitalist Progress Note REPORT#:[id number] REPORT STATUS: Signed DATE:10/21/18 TIME: 957 PATIENT: GABBIE CASTANEDA UNIT #: [id number] ROOM/BED: Y307-1 : 42 AGE: 78 SEX: [...] 65 16 127/62 83.8 90 Room air / 1938 97.7 62 18 121/66 84.0 92 Room air / 1559 97.7 65 18 [...] no guarding Extremities: moves all, no cyanosis Neuro/NUCLEAR TECHNOLOGIST: normal speech Skin: normal temperature Wound/incision: Location: [...] (Auto) (24 - 44 %) 17.2 L Davidson % (Auto) (0.0 - 4.0 %) 10.5 [...] told to discontinue her home hectorrelotilia Consultants: department specialist: Dr. Christy at 1055 RPT #:[id number] END OF REPORT [facility] 2018-10-21 09:58:00 [facility] Hospitalist Progress Note REPORT#:[id number] REPORT STATUS: Signed DATE:10/21/18 TIME: 0958 PATIENT: GABBIE CASTANEDA UNIT #: [id number] ROOM/BED: Y307-1 : 42 AGE: 78 SEX: [...] no guarding Extremities: moves all, no cyanosis Neuro/NUCLEAR TECHNOLOGIST: normal speech Skin: normal temperature Wound/incision: Location: [...] (Auto) (24 - 44 %) 17.2 L Davidson % (Auto) (0.0 - 4.0 %) 10.5 [...] told to discontinue her home xarelto Consultants: department specialist: Dr. Christy at 1055 at 0835 RPT #:[id number] END OF REPORT [facility] 2018-10-20 19:24:00 [facility] Hospitalist Progress Note REPORT#:[id number] REPORT STATUS: Signed DATE:10/20/18 TIME: 1923 PATIENT: GABBIE CASTANEDA UNIT #: [id number] ROOM/BED: [place] [address] : 42 AGE: 78 SEX: F ATTEND: [...] 57 18 117/62 80.6 93 Room air 10/20 0820 98.8 68 18 121/68 85.7 95 Room air 10/20 0431 97.9 67 17 128/66 86.9 96 Room air / 0431 97.9 67 17 128/66 86.9 96 Room air 05/ 0026 98.4 [...] no guarding Extremities: moves all, no cyanosis Neuro/NUCLEAR TECHNOLOGIST: normal speech Skin: normal temperature Wound/incision: Location: [...] managment for in hospital wound care Consultants: department specialist: Dr. Christy at 2234 RPT #:[id number] END OF REPORT [facility] 2018-10-20 19:24:00 [facility] Hospitalist Progress Note REPORT#:[id number] REPORT STATUS: Signed DATE:10/20/18 TIME: 1923 PATIENT: GABBIE CASTANEDA UNIT #: [id number] ROOM/BED: Y307-1 : 42 AGE: 78 SEX: [...] 57 18 117/62 80.6 93 Room air 10/20 0820 98.8 68 18 121/68 85.7 95 Room air 05/02 0431 97.9 67 17 128/66 86.9 96 Room air 05/ 0431 97.9 67 17 128/66 86.9 96 Room air 05/ 0026 98.4 67 17 122/69 86.9 96 Room air 05/02 0026 98.4 67 17 122/69 86.9 96 [...] no guarding Extremities: moves all, no cyanosis Neuro/NUCLEAR TECHNOLOGIST: normal speech Skin: normal temperature Wound/incision: Location: [...] managment for in hospital wound care Consultants: department specialist: Dr. Christy at 2234 at 0808 RPT #:[id number] END OF REPORT [facility] 2018-10-19 15:33:00 [facility] Hospitalist Progress Note REPORT#:[id number] REPORT STATUS: Signed DATE:10/19/18 TIME: 1533 PATIENT: GABBIE CASTANEDA UNIT #: [id number] [facility] AGE: 78 SEX: F [...] 24 hour I O ending at 0700: 05 0700 10/18 1900 Intake Total Output Total [...] no guarding Extremities: moves all, no cyanosis Neuro/NUCLEAR TECHNOLOGIST: normal speech Skin: normal temperature Wound/incision: Location: [...] (Auto) (24 - 44 %) 21.2 L Davidson % (Auto) (0.0 - 4.0 %) 9.8 [...] managment for in hospital wound care Consultants: department specialist: Dr. Christy at 1538 RPT #:[id number] END OF REPORT [facility] 2018-10-19 15:33:00 [facility] Hospitalist Progress Note REPORT#:[id number] REPORT STATUS: Signed DATE:10/19/18 TIME: 1533 PATIENT: GABBIE CASTANEDA UNIT #: [id number] [facility] AGE: 78 SEX: F [...] O2 Flow FiO2 Mean Ox Delivery Rate 05/01 1519 97.3 66 13 126/68 87.7 92 [...] no guarding Extremities: moves all, no cyanosis Neuro/NUCLEAR TECHNOLOGIST: normal speech Skin: normal temperature Wound/incision: Location: [...] (Auto) (24 - 44 %) 21.2 L Davidson % (Auto) (0.0 - 4.0 %) 9.8 [...] managment for in hospital wound care Consultants: department specialist: Dr. Christy at 1538 at 0808 RPT #:[id number] END OF REPORT [facility] 2018-10-18 11:18:00 [facility] Hospitalist Progress Note REPORT#:[id number] REPORT STATUS: Signed DATE:10/18/18 TIME: 1118 PATIENT: GABBIE CASTANEDA LITZY UNIT #: [id number] ROOM/BED: Y307-1 : 42 AGE: 78 SEX: [...] no guarding Extremities: moves all, no cyanosis Neuro/NUCLEAR TECHNOLOGIST: normal speech Skin: normal temperature Wound/incision: Location: [...] vac be DC in 2-3 days. Consultants: department specialist: Dr. Christy at 1350 RPT #:[id number] END OF REPORT [facility] 2018-10-18 11:18:00 [facility] Hospitalist Progress Note REPORT#:[id number] REPORT STATUS: Signed DATE:10/18/18 TIME: 1118 PATIENT: GABBIE CASTANEDA UNIT #: [id number] ROOM/BED: Y307-1 : 42 AGE: 78 SEX: [...] 18 142/79 99.9 97 Room air 10/17 231 97.9 64 18 142/79 99.9 97 Room [...] no guarding Extremities: moves all, no cyanosis Neuro/NUCLEAR TECHNOLOGIST: normal speech Skin: normal temperature Wound/incision: Location: [...] Plastic surgery consulted. Will follow up on recVIDYA aragon for snf placement. I spoke with the patient's plastic surgeon today. He has cleared the patient for discharge. Asks that the wound vac be DC in 2-3 days. Consultants: department specialist: Dr. Christy at 1350 at 0808 RPT #:[id number] END OF REPORT [facility] 2018-10-17 13:15:00 [facility] Hospitalist Progress Note REPORT#:[id number] REPORT STATUS: Signed DATE:10/17/18 TIME: 1315 PATIENT: GABBIE CASTANEDA LITZY UNIT #: [id number] [address]BED: [address] : 42 AGE: 78 SEX: F [...] no guarding Extremities: moves all, no cyanosis Neuro/NUCLEAR TECHNOLOGIST: normal speech Skin: normal temperature Wound/incision: Location: [...] (Auto) (24 - 44 %) 18.2 L Davidson % (Auto) (0.0 - 4.0 %) 12.5 [...] vac be DC in 3-4 days. Consultants: department specialist: Dr. Christy at 1632 RPT #:[id number] END OF REPORT [facility] 2018-10-17 13:15:00 [facility] Hospitalist Progress Note REPORT#:[id number] REPORT STATUS: Signed DATE:10/17/18 TIME: 1315 PATIENT: GABBIE CASTANEDA LITZY UNIT #: [id number] [address]BED[address] : 42 AGE: 78 SEX: F [...] no guarding Extremities: moves all, no cyanosis Neuro/NUCLEAR TECHNOLOGIST: normal speech Skin: normal temperature Wound/incision: Location: [...] (Auto) (24 - 44 %) 18.2 L Davidson % (Auto) (0.0 - 4.0 %) 12.5 [...] vac be DC in 3-4 days. Consultants: department specialist: Dr. Christy at 1632 at 2009 RPT #:[id number] END OF REPORT [facility] 2018-10-16 11:14:00 [facility] Hospitalist Progress Note REPORT#:[id number] REPORT STATUS: Signed DATE:10/16/18 TIME: 1114 PATIENT: GABBIE CASTANEDA LITZY UNIT #: [id number] ROOM/BED: Y307-1 : 42 AGE: 78 SEX: [...] no guarding Extremities: moves all, no cyanosis Neuro/NUCLEAR TECHNOLOGIST: normal speech Skin: normal temperature Wound/incision: Location: R lower leg Site Condition: wound vac applied Psychiatry: normal affect, normal judgment/insight, normal mood Results Findings/Data: Laboratory Tests 10/16 10/16 10/15 10/15 0622 0406 2049 1627 Chemistry Sodium (133 - [...] (Auto) (24 - 44 %) 19.8 L Davidson % (Auto) (0.0 - 4.0 %) 10.0 [...] P: 1. Cellulitis of right leg Consultants: department specialist: Dr. Christy at 1117 RPT #:[id number] END OF REPORT [facility] 2018-10-15 11:40:00 [facility] Hospitalist Progress Note REPORT#:[id number] REPORT STATUS: Signed DATE:10/15/18 TIME: 1140 PATIENT: GABBIE CASTANEDA UNIT #: [id number] ROOM/BED: Y307-1 : 42 AGE: 78 SEX: [...] no guarding Extremities: moves all, no cyanosis Neuro/NUCLEAR TECHNOLOGIST: normal speech Skin: normal temperature Wound/incision: Location: [...] (Auto) (24 - 44 %) 8.3 L Davidson % (Auto) (0.0 - 4.0 %) 7.8 [...] follow up on VIDYA alston for snf placement Problem List/A P: 1. Cellulitis of right leg Orders: Procedure Date/time Status Weight Daily 10/15 1141 Active Intake Output 10/15 1141 Active NUTRITIONAL CONSULT 10/15 1141 Active Consultants: department specialist: Dr. Christy at 1718 RPT #:[id number] END OF REPORT [facility] 2018-10-14 13:47:00 [facility] Hospitalist Progress Note REPORT#:[id number] REPORT STATUS: Signed DATE:10/14/18 TIME: 1347 PATIENT: GABBIE CASTANEDA UNIT #: [id number] ROOM/BED: Y307-1 : 42 AGE: 78 SEX: [...] 2214 63 18 135/63 99 Room air 10/13 2210 69 20 130/57 97 Nasal 3.490814 cannula 10/13 2204 68 18 127/61 96 Nasal 3.494792 cannula 10/13 2199 69 18 131/58 100 Nasal 3.654697 cannula 10/13 2154 81 18 139/63 96 Nasal 3.115663 cannula 10/13 215 Nasal 3.281021 cannula 10/13 2149 97.4 82 16 119/55 96 Nasal 4.534650 cannula 24 hour I O ending at [...] no guarding Extremities: moves all, no cyanosis Neuro/NUCLEAR TECHNOLOGIST: normal speech Skin: normal temperature Wound/incision: Location: [...] on recs, CM for snf placement Consultants: department specialist: Dr. Christy at 2141 RPT #:[id number] END OF REPORT [facility] 2018-10-14 13:47:00 [facility] Hospitalist Progress Note REPORT#:[id number] REPORT STATUS: Signed DATE:10/14/18 TIME: 1347 PATIENT: GABBIE CASTANEDA LITZY UNIT #: [id number] ROOM/BED: Y307-1 : 42 AGE: 78 SEX: [...] 2220 59 20 139/60 96 Room air 10/135 63 18 135/63 99 Room air 10/13 2209 69 20 130/57 97 Nasal 3.963772 cannula 10/13 2204 68 18 127/61 96 Nasal 3.454643 cannula 10/13 2199 69 18 131/58 100 Nasal 3.605130 cannula 10/13 2154 81 18 139/63 96 Nasal 3.633308 cannula 10/13 2153 Nasal 3.615285 cannula 10/13 2149 97.4 82 16 119/55 96 Nasal 4.905522 cannula 24 hour I O ending at [...] no guarding Extremities: moves all, no cyanosis Neuro/NUCLEAR TECHNOLOGIST: normal speech Skin: normal temperature Wound/incision: Location: [...] on recs, CM for snf placement Consultants: department specialist: Dr. Christy at 2149 Addendum 1: 10/14/182151 by Vasquez Noel DO R2 for Chele Bass MD PLEASE DISREGARD COSIGNER DR. RIBEIRO, THIS IS DR. BASS'S PATIENT AND WAS ACCIDENTLY COSIGNED TO DR. RIBEIRO. DR. RIBEIRO HAS NOT BEEN INVOLVED IN THE PATIENT'S CARE DURING THIS HOSPITALIZATION at 2155 RPT #:[id number] END OF REPORT [facility] 2018-10-14 13:47:00 [facility] ([facility]) Hospitalist Progress Note REPORT#:[id number] REPORT STATUS: Signed DATE:10/14/18 TIME: 1347 PATIENT: GABBIE CASTANEDA UNIT #: [id number] ROOM/BED: [address] : 42 AGE: 78 SEX: F [...] 10/13 2210 69 20 130/57 97 Nasal 3.904598 cannula 10/13 2204 68 18 127/61 96 Nasal 3.116366 cannula 10/13 2199 69 18 131/58 100 Nasal 3.937843 cannula 10/13 215 81 18 139/63 96 Nasal 3.921677 cannula 10/13 2154 Nasal 3.968874 cannula 10/13 2150 97.4 82 16 119/55 96 Nasal 4.178976 cannula 24 hour I O ending at [...] no guarding Extremities: moves all, no cyanosis Neuro/NUCLEAR TECHNOLOGIST: normal speech Skin: normal temperature Wound/incision: Location: [...] on recs, CM for snf placement Consultants: department specialist: Dr. Christy at 214 Addendum 1: 10/14/182151 by Vasquez Noel DO R2 PLEASE DISREGARD COSIGNER DR. RIBEIRO, THIS IS DR. BASS'S PATIENT AND WAS ACCIDENTLY COSIGNED TO DR. RIBEIRO. DR. RIBEIRO HAS NOT BEEN INVOLVED IN THE PATIENT'S CARE DURING THIS HOSPITALIZATION at 2155 at 2008 RPT #:[id number] END OF REPORT [facility] 2018-10-14 13:47:00 [facility] ([facility]) Hospitalist Progress Note REPORT#:[id number] REPORT STATUS: Signed DATE:10/14/18 TIME: 134 PATIENT: GABBIE CASTANEDA UNIT #: [id number] ROOM/BED: Y307-1 : 42 AGE: 78 SEX: [...] 59 20 139/60 96 Room air 10/13 221 63 18 135/63 99 Room air 10/13 2209 69 20 130/57 97 Nasal 3.784799 cannula 10/13 2204 68 18 127/61 96 Nasal 3.987514 cannula 10/13 2199 69 18 131/58 100 Nasal 3.363289 cannula 10/13 215 81 18 139/63 96 Nasal 3.861176 cannula 10/13 215 Nasal 3.151088 cannula 10/13 2149 97.4 82 16 119/55 96 Nasal 4.880865 cannula 24 hour I O ending at [...] no guarding Extremities: moves all, no cyanosis Neuro/NUCLEAR TECHNOLOGIST: normal speech Skin: normal temperature Wound/incision: Location: [...] on recs, CM for snf placement Consultants: department specialist: Lv Villeda 11/21/18 0852: Diagnosis, Assessment Plan Additional comments: I have personally interviewed and examined the patient on 10/14/18. All charts, labs, and imaging studies were reviewed. I agree with the Resident's findings, exam, and plan. at 2149 Addendum 1: 10/14/18 2152 by Vasquez Noel PLEASE DISREGARD COSIGNER DR. RIBEIRO, THIS IS DR. BASS'S PATIENT AND WAS ACCIDENTLY COSIGNED TO DR. RIBEIRO. DR. RIBEIRO HAS NOT BEEN INVOLVED IN THE PATIENT'S CARE DURING THIS HOSPITALIZATION at 2155 at 2008 RPT #:[id number] END OF REPORT [facility] 2018-10-14 13:47:00 [facility] ([facility]) Hospitalist Progress Note REPORT#:[id number] REPORT STATUS: Signed DATE:10/14/18 TIME: 1346 PATIENT: GABBIE CASTANEDA UNIT #: [id number] ROOM/BED: [place] [address] : 42 AGE: 78 SEX: F ATTEND: Chele Bass MD ADM AUTHOR: Vasquez Noel * ALL edits or amendments must be [...] 10/13 2210 69 20 130/57 97 Nasal 3.159085 cannula 10/13 2204 68 18 127/61 96 Nasal 3.634635 cannula 10/13 2199 69 18 131/58 100 Nasal 3.833688 cannula 10/13 2154 81 18 139/63 96 Nasal 3.795340 cannula 10/13 2154 Nasal 3.763245 cannula 10/13 2150 97.4 82 16 119/55 96 Nasal 4.934082 cannula 24 hour I O ending at [...] no guarding Extremities: moves all, no cyanosis Neuro/NUCLEAR TECHNOLOGIST: normal speech Skin: normal temperature Wound/incision: Location: [...] on recs, CM for snf placement Consultants: department specialist: Lv Villeda 11/21/18 0852: Diagnosis, Assessment [...] THIS HOSPITALIZATION at 2155 at 2008 RPT #:[id number] END OF REPORT [facility] 2018-10-13 21:51:00 [id number] [place], [place] PATIENT NAME: GABBIE CASTANEDA ADMIT DATE: 10/09/18 ACCOUNT NO: [id number] ROOM NO: D.Y307 AGE: 78 REPORT TYPE: [...] skin grafting. OPERATING SURGEON: Akash Phelan MD [employer]: ANESTHESIA: General endotracheal anesthesia. COMPLICATIONS: None. SPECIMEN [...] PATIENT NAME: GABBIE CASTANEDA WT: OP:SERENE/VINNIE/KEISHA Conf#: [id number]/DID#: [id number] Authenticated by Akash Phelan MD On 12/15/2018 12:04:42 PM at 1205 PATIENT NAME: GABBIE CASTANEDA [facility] 2018-10-13 10:40:00 [facility] ([facility]) Wound Care Progress Note REPORT#:[id number] REPORT STATUS: Signed DATE:10/13/18 TIME: 1040 PATIENT: GABBIE CASTANEDA UNIT #: [id number] ROOM[address]BED: [address] : 42 AGE: 78 SEX: F [...] pain at the wound/woundvac which becomes severe, , with manipulation of the wound and surrounding [...] range of motion, no midline vertebral tend Neuro/NUCLEAR TECHNOLOGIST: alert, oriented X 3, CN II-XII intact, [...] progression in the hospital. at 1058 RPT #:[id number] END OF REPORT [facility] 2018-10-13 10:40:00 [facility] ([facility]) Wound Care Progress Note REPORT#:[id number] REPORT STATUS: Signed DATE:10/13/18 TIME: 1040 PATIENT: GABBIE CASTANEDA UNIT #: [id number] ROOM/BED: Y307-1 : 42 AGE: 78 SEX: [...] range of motion, no midline vertebral tend Neuro/NUCLEAR TECHNOLOGIST: alert, oriented X 3, CN II-XII intact, [...] the hospital. 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 at 1058 RPT #:[id number] END OF REPORT [facility] 2018-10-13 06:15:00 [facility] ([facility]) Hospitalist Progress Note REPORT#:[id number] REPORT STATUS: Signed DATE:10/13/18 TIME: 614 PATIENT: GABBIE CASTANEDA UNIT #: [id number] ROOM/BED: [place] [address] : 42 AGE: 78 SEX: F ATTEND: [...] no guarding Extremities: moves all, no cyanosis Neuro/NUCLEAR TECHNOLOGIST: normal speech Skin: normal temperature Wound/incision: Location: [...] To have a skin graft today. Consultants: department specialist: Dr. Christy at 1424 RPT #:[id number] END OF REPORT [facility] 2018-10-13 06:15:00 [facility] ([facility]) Hospitalist Progress Note REPORT#:[id number] REPORT STATUS: Signed DATE:10/13/18 TIME: 614 PATIENT: GABBIE CASTANEDA LITZY UNIT #: [id number] ROOM/BED: Y307-1 : 42 AGE: 78 SEX: [...] no guarding Extremities: moves all, no cyanosis Neuro/NUCLEAR TECHNOLOGIST: normal speech Skin: normal temperature Wound/incision: Location: [...] To have a skin graft today. Consultants: department specialist: Dr. Christy at 1424 at 2009 RPT #:[id number] END OF REPORT [facility] 2018-10-12 19:20:00 [id number] [place], [place] PATIENT NAME: GABBIE CASTANEDA ADMIT DATE: 10/09/18 ACCOUNT NO: [id number] ROOM NO: D.Y307 AGE: 78 REPORT TYPE: [...] future. Dictated By: Akash Phelan MD WT: CON:D.CARRIE/VINNIE/KEISHA Conf#: [id number]/DID#: [id number] Authenticated by Akash Phelan MD On 12/15/2018 12:03:45 PM PATIENT NAME: GABBIE CASTANEDA at 1204 PATIENT NAME: GABBIE CASTANEDA [facility] 2018-10-12 12:29:00 [facility] ([facility]) Hospitalist Progress Note REPORT#:[id number] REPORT STATUS: Signed DATE:10/12/18 TIME: 1229 PATIENT: GABBIE CASTANEDA UNIT #: [id number] ROOM/BED: [place] [address] : 42 AGE: 78 SEX: F ATTEND: [...] no guarding Extremities: moves all, no cyanosis Neuro/NUCLEAR TECHNOLOGIST: normal speech Skin: normal temperature Wound/incision: Location: [...] vac in place. Plastic surgery consulted Consultants: department specialist: Dr. Christy at 1451 RPT #:[id number] END OF REPORT [facility] 2018-10-12 12:29:00 [facility] ([facility]) Hospitalist Progress Note REPORT#:[id number] REPORT STATUS: Signed DATE:10/12/18 TIME: 1229 PATIENT: GABBIE CASTANEDA LITZY UNIT #: [id number] ROOM[address]BED: [address] : 42 AGE: 78 SEX: F [...] no guarding Extremities: moves all, no cyanosis Neuro/NUCLEAR TECHNOLOGIST: normal speech Skin: normal temperature Wound/incision: Location: [...] vac in place. Plastic surgery consulted Consultants: department specialist: Dr. Christy at 1451 at 0901 RPT #:[id number] END OF REPORT [facility] 2018-10-12 10:08:00 [facility] ([facility]) Wound Care Consultation Note REPORT#:[id number] REPORT STATUS: Signed DATE:10/12/18 TIME: 1008 PATIENT: GABBIE CASTANEDA LITZY UNIT #: [id number] ROOM/BED: Y307-1 : 42 AGE: 78 SEX: [...] 07/09/17 10/07/18 (KLOR-CON M20) DAILY 1800 1626 175 Strength: 20 MEQ TAB.SR amLODIPine (NORVASC) [...] DAILY 07/10/17 10/07/18 Strength: 300 MG TAB 184 175 HYDROcodone/APAP 1 TAB PO 07/10/17 10/07/18 (NORCO 10/325) TID PRN PAIN 185 180 Strength: 1 TAB TAB METOPROLOL SUCC [...] PRN 10/07 1850 AC (APRESOLINE) IV 12/06 1851 Central Nervous System Agents Sig/Joanne Start time [...] 10/07 185 AC (ULTRAM 50MG TABLET) PO 12/06 185 Acetaminophen 650 MG Q4H [...] 10/07 185 AC 10/11 (LASIX) PO 12/06 185 1720 [...] Temp 97.7 10/12 702 Pulse 68 10/12 0703 Resp 18 10/12 702 24 hour I [...] range of motion, no midline vertebral tend Neuro/NUCLEAR TECHNOLOGIST: alert, oriented X 3, CNII-XII grossly intact Skin: Right medial calf wound 41b97tm with pink granulation tissue throughout. Tenderness with [...] irrigation with woundvac care at 1043 RPT #:[id number] END OF REPORT [facility] 2018-10-12 10:08:00 [facility] ([facility]) Wound Care Consultation Note REPORT#:[id number] REPORT STATUS: Signed DATE:10/12/18 TIME: 1008 PATIENT: GABBIE CASTANEDA UNIT #: [id number] ROOM/BED: RimaY307-1 : 42 AGE: 78 SEX: F ATTEND: [...] 07/09/17 10/07/18 Strength: 10 MG TAB 1627 175 FUROSEMIDE (LASIX) 20 MG PO DAILY [...] PO DAILY 07/10/17 10/07/18 (TOPROL XL) 1858 175 Strength: 100 MG TAB.SA LEVOTHYROXINE 100 [...] Admin Metoprolol Succinate 100 MG DAILY 10/08 09 AC 10/12 (TOPROL XL 100MG PO 12/07 09 0951 TABLET SA) Valsartan 320 MG DAILY 10/08 0900 AC 10/12 (DIOVAN 80MG TABLET) PO 12/07 09 0951 Amlodipine Besylate 10 MG 1800 10/07 1854 AC 10/11 (NORVASC 10MG TABLET) PO 12/07 1855 1720 Hydralazine HCl 10 MG Q6H PRN PRN 10/07 1850 AC (APRESOLINE) IV 12/06 185 Central Nervous System Agents Sig/Joanne Start time Last Medication Dose Route Stop Time Status Admin Oxycodone HCl 5 MG Q4H PRN PRN 10/10 1025 AC (OXY IR 5MG TABLET) PO 10/20 1026 Hydrocodone Bitart/ 1 TAB TID PRN 10/07 1854 AC 10/11 Acetaminophen PO 10/18 1855 0315 (NORCO 10/325 TABLET) Tramadol HCl 50 [...] AC 10/11 (PEPCID 20MG TABLET) PO 12/06 2101 1720 Ondansetron HCl 4 MG Q8H PRN [...] 2100 AC (HUMALOG) Insts (1) SUBQ 12/06 2101 Miscellaneous Therapeutic Agen Sig/Joanne Start time Last [...] range of motion, no midline vertebral tend Neuro/NUCLEAR TECHNOLOGIST: alert, oriented X 3, CNII-XII grossly intact Skin: Right medial calf wound 32s75ny with pink granulation tissue throughout. Tenderness with [...] irrigation with woundvac care at 1043 RPT #:[id number] END OF REPORT [facility] 2018-10-12 10:08:00 [facility] ([facility]) Wound Care Consultation Note REPORT#:[id number] REPORT STATUS: Signed DATE:10/12/18 TIME: 1008 PATIENT: GABBIE CASTANEDA LITZY UNIT #: [id number] ROOM/BED: [place] [address] : 42 AGE: 78 SEX: F ATTEND: [...] at the wound /woundvac which becomes severe, 10/10, with manipulation of the wound and the [...] Admin Metoprolol Succinate 100 MG DAILY 10/08 09 AC 10/12 (TOPROL XL 100MG PO 12/07 [...] 10/07 2014 AC (DEXTROSE 50% 50ML IV 12/06 2016 SYRINGE) Dextrose/Water 12.5 GM ASDIR PRN 10/07 [...] Admin Sodium Hypochlorite 473 ML DAILY 10/11 09 CKD 10/12 (DAKINS 0.25% (HALF TOPICAL 10/21 09 0952 STRENGTH)) Dose Instructions: (1)Insulin Human Lispro [...] Temp 97.7 10/12 702 Pulse 68 10/12 702 Resp 18 10/12 702 24 hour I [...] range of motion, no midline vertebral tend Neuro/NUCLEAR TECHNOLOGIST: alert, oriented X 3, CNII-XII grossly intact Skin: Right medial calf wound 57l16jq with pink granulation tissue throughout. Tenderness with [...] woundvac care at 1043 at 1031 RPT #:[id number] END OF REPORT [facility] 2018-10-11 12:57:00 [facility] ([facility]) Hospitalist Progress Note REPORT#:[id number] REPORT STATUS: Signed DATE:10/11/18 TIME: 1257 PATIENT: GABBIE CASTANEDA UNIT #: [id number] ROOM/BED: [place] [address] : 42 AGE: 78 SEX: F ATTEND: [...] no guarding Extremities: moves all, no cyanosis Neuro/NUCLEAR TECHNOLOGIST: normal speech Skin: normal temperature Wound/incision: Location: [...] Wound vac in place. Consulted Dr. Christy, information management specialist. Plastics consult pending. Dr. Bass to [...] 0500 Active NE[place] PRESSURE 50[place]< [place] [address] 10/10 UNK Complete Consultants: department specialist: Dr. Christy Plan discussed with: patient, nurse at 1357 RPT #:[id number] END OF REPORT [facility] 2018-10-10 16:26:00 [facility] ([facility] Hospitalist Progress Note REPORT#:[id number] REPORT STATUS: Signed DATE:10/10/18 TIME: 1626 PATIENT: GABBIE CASTANEDA LITZY UNIT #: [id number] ROOM/BED: Y307-1 : 42 AGE: 78 SEX: [...] no guarding Extremities: moves all, no cyanosis Neuro/NUCLEAR TECHNOLOGIST: normal speech Skin: normal temperature Wound/incision: Location: [...] 10/10 0830 Complete EVAL PT LOW COMPLEX [id number] 10/08 UNK Complete THERAPEUTIC ACTVTY DIR 15 M 10/08 UNK Complete NE[place] PRESSURE>[place] [address] 10/08 UNK Complete GAIT TRAINING 15 MIN 73889 10/08 UNK Complete Consultants: department specialist: Dr. Christy Plan discussed with: patient, family, nurse at 0021 RPT #:[id number] END OF REPORT [facility] 2018-10-09 14:29:00 [facility] ([facility] Hospitalist Progress Note REPORT#:[id number] REPORT STATUS: Signed DATE:10/09/18 TIME: 1429 PATIENT: GABBIE CASTANEDA UNIT #: [id number] ROOM/BED: Y307-1 : 42 AGE: 78 SEX: [...] no guarding Extremities: moves all, no cyanosis Neuro/NUCLEAR TECHNOLOGIST: normal speech Skin: normal temperature Wound/incision: Location: [...] with: patient, family, nurse at 1604 RPT #:[id number] END OF REPORT [facility] 2018-10-08 13:57:00 [facility] Hospitalist History Physical REPORT#:[id number] REPORT STATUS: Signed DATE:10/08/18 TIME: 1357 PATIENT: GABBIE CASTANEDA UNIT #: [id number] ROOM/BED: [place] [address] : 42 AGE: 78 SEX: F ATTEND: [...] or older: Former Smoker 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, [employer]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, 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 Medication/Allergy-Vaccine Hx Medications: Home Medications: Medication Dose/Rte/Freq Days Qty Entered Last Max Daily Dose Reviewed POTASSIUM CHLORIDE ER 20 MEQ PO 07/09/17 10/07/18 (KLOR-CON M20) DAILY 1800 162 175 Strength: 20 MEQ TAB.SR amLODIPine (NORVASC) 10 MG PO DAILY 1800 07/09/17 10/07/18 Strength: 10 MG TAB 162 1758 FUROSEMIDE (LASIX) 20 MG PO DAILY [...] 10/07/18 (NORCO 10/325) TID PRN PAIN 1855 1804 Strength: 1 TAB TAB METOPROLOL SUCC [...] 0836 Amlodipine Besylate 10 MG 1800 10/07 1854 AC 10/07 (NORVASC 10MG TABLET) PO 12/06 [...] TID PRN 10/07 185 AC Acetaminophen PO 10/18 1855 (NORCO 10/325 TABLET) Tramadol HCl 50 MG Q8H PRN PRN 10/07 185 AC (ULTRAM 50MG TABLET) PO 12/07 1855 Acetaminophen 650 MG Q4H PRN PRN 10/07 185 AC (TYLENOL 325MG PO 12/06 185 TABLET) [...] 10/07 185 AC 10/08 (LASIX) PO 12/06 1856 1728 Gastrointestinal Drugs Sig/Joanne Start time Last [...] SECONDS) 12.8 H INR 1.13 Laboratory Tests 10/087 1855 Hematology WBC (4.80 - 10.80 x10 [...] - 44 %) 9.2 L 8.7 L Davidson % (Auto) (0.0 - 4.0 %) 12.2 [...] floor for further evaluation. at 2137 RPT #:[id number] END OF REPORT [facility] 2018-10-08 12:30:00 [facility] Pharmacy Prog.Note-Vancomycin REPORT#:[id number] REPORT STATUS: Signed DATE:10/08/18 TIME: 123 PATIENT: MANOHARGABBIE UNIT #: [id number] ROOM/BED: Y3071 : 42 AGE: 78 SEX: F ATTEND: Sadiq Bates DO ADM AUTHOR: Kailyn Castaneda RPh * ALL edits or amendments must be made on the electronic/computer document * Vancomycin Vancomycin Treatment plan: MORBID OBESE WITH BMI OF 46 WILL DOSE USING ABW 73 AND SCR 0.91 CALC DOSE OF 1250 Q24 FOR PREDICTED TROUGH OF 16.7 at 1233 RPT #:[id number] END OF REPORT [facility] 2018-10-07 17:29:00 [facility]) OR A CAMPUS OF [facility] EMERGENCY PROVIDER REPORT REPORT#:[id number] REPORT STATUS: Signed DATE:10/07/18 TIME: 172 PATIENT: GABBIE CASTANEDA LITZY UNIT #: [id number] ROOM/BED: Y307-1 AGE: 78 SEX: F PCP PHYS: Chele Bass MD SERVICE AUTHOR: Nadir Key MD * ALL edits or amendments must be made on the electronic/computer document * Nadir Keyton. 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 Key ]. Signed By: Rubén Flores, 10/07/18 5214 Provider Scribed Statement I personally performed the [...] Ox 97 10/07 1806 B/P 134/63 10/07 180 B/P Mean 86 10/07 1806 O2 Delivery Room air 10/07 1806 Temp 36.7 10/07 180 Pulse 57 10/07 [...] 0901 0836 Valsartan 320 MG DAILY 10/08 09 AC 10/08 PO 12/07 0901 0836 Amlodipine Besylate 10 MG 1800 10/07 185 AC 10/07 PO 12/06 185 2154 Hydralazine HCl 10 [...] MEQ 1800 10/08 1800 AC PO 12/07 180 Furosemide 20 MG 1800 10/07 185 AC PO 12/06 185 Gastrointestinal Drugs Sig/Joanne Start time Last Medication Dose Route Stop Time Status Admin Famotidine 20 MG Q24H 10/07 185 AC 10/07 PO 12/06 210 2154 Ondansetron HCl 4 MG Q8H PRN PRN 10/07 185 AC IV 12/06 185 Hormones And Synthetic [...] Masterson MD Admit Physician Hospitalist Request Time 1826 Request Date 10/07/18 )( Admission Accepts Yes [...] Supervising Physician Note Scribe Statement Gregorio Frank, 10/07/18 1848, scribing for and in the presence of [Dr. Hall]. Signed By: Gregorio Frank, 10/07/181847 Provider Scribed Statement I personally performed the services described in this documentation and reviewed the documentation that was dictated to the scribe(s) in my presence, and it accurately records my words and actions. 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 at 1231 at 0907 RPT #:[id number] END OF REPORT [facility] 2018-09-30 07:18:00 [facility] Hospitalist Progress Note REPORT#:[id number] REPORT STATUS: Signed DATE:09/30/18 TIME: 717 PATIENT: GABBIE CASTANEDA UNIT #: [id number] ROOM/BED: [place] [address] : 42 AGE: 78 SEX: F ATTEND: [...] LE with 2+ edema Musculoskeletal: normal inspection Neuro/NUCLEAR TECHNOLOGIST: alert, oriented X 3 Results Findings/Data: Laboratory [...] (Auto) (24 - 44 %) 15.8 L Davidson % (Auto) (0.0 - 4.0 %) 11.8 [...] Conditional DC for tomorrow at 1623 RPT #:[id number] END OF REPORT [facility] 2018-09-30 07:18:00 [facility] Hospitalist Progress Note REPORT#:[id number] REPORT STATUS: Signed DATE:09/30/18 TIME: 717 PATIENT: GABBIE CASTANEDA UNIT #: [id number] ROOM/BED: Y314-1 : 42 AGE: 78 SEX: [...] LE with 2+ edema Musculoskeletal: normal inspection Neuro/NUCLEAR TECHNOLOGIST: alert, oriented X 3 Results Findings/Data: Laboratory [...] - 2.2) 0.7 L Laboratory Tests 09/30 023 Hematology WBC (4.80 - 10.80 x10 3/uL) [...] (Auto) (24 - 44 %) 15.8 L Davidson % (Auto) (0.0 - 4.0 %) 11.8 [...] DC for tomorrow at 1623 at 0907 [facility] #:[id number] END OF REPORT [facility] 2018-09-29 06:00:00 [facility] Hospitalist Progress Note REPORT#:[id number] REPORT STATUS: Signed DATE:09/29/18 TIME: 0600 PATIENT: GABBIE CASTANEDA UNIT #: [id number] ROOM/BED: Y41 : 42 AGE: 78 SEX: [...] 95 09/29 0058 67 147/67 93.9 94 04/11 0043 [...] 97.9 76 17 147/64 91.8 94 04/10 0713 91 Room air 21 24 hour [...] LE with 2+ edema Musculoskeletal: normal inspection Neuro/NUCLEAR TECHNOLOGIST: alert, oriented X 3 Results Findings/Data: Laboratory [...] (Auto) (24 - 44 %) 6.5 L Davidson % (Auto) (0.0 - 4.0 %) 5.2 [...] CM for SNF placement at 2000 RPT #:[id number] END OF REPORT [facility] 2018-09-29 06:00:00 [facility] Hospitalist Progress Note REPORT#:[id number] REPORT STATUS: Signed DATE:09/29/18 TIME: 0600 PATIENT: GABBIE CASTANEDA LITZY UNIT #: [id number] ROOM/BED: Y3141 : 42 AGE: 78 SEX: F ATTEND: [...] 65 18 143/77 99.4 94 Room air 04 0201 98.4 65 18 148/66 93.4 96 Room air / 0158 66 148/66 93.4 04/11 0143 64 149/69 95.4 94 04/ 0128 70 135/68 90.6 96 04/11 0113 [...] 75 16 116/55 75.5 96 Room air 09/29 743 97.9 76 17 147/64 91.8 94 09/28 [...] LE with 2+ edema Musculoskeletal: normal inspection Neuro/NUCLEAR TECHNOLOGIST: alert, oriented X 3 Results Findings/Data: Laboratory [...] (Auto) (24 - 44 %) 6.5 L Davidson % (Auto) (0.0 - 4.0 %) 5.2 [...] SNF placement at 2001 at 0907 RPT #:[id number] END OF REPORT [facility] 2018-09-28 07:16:00 [facility] ([facility]) Hospitalist Progress Note REPORT#:[id number] REPORT STATUS: Signed DATE:09/28/18 TIME: 715 PATIENT: GABBIE CASTANEDA LITZY UNIT #: [id number] ROOM/BED: Y314-1 : 42 AGE: 78 SEX: [...] 96 Room air 09/28 0230 98 Nasal 2.114329 cannula 09/28 0028 98.2 71 19 120/69 85.8 98 Nasal cannula 09/28 0028 98.2 71 19 120/69 85.8 98 Nasal cannula 09/27 2218 Nasal 2.867579 cannula 09/27 204 97.7 71 19 111/56 [...] LE with 2+ edema Musculoskeletal: normal inspection Neuro/NUCLEAR TECHNOLOGIST: alert, oriented X 3 Diagnosis, Assessment Plan [...] CM for SNF placement at 1621 RPT #:[id number] END OF REPORT [facility] 2018-09-28 07:16:00 [facility] ([facility]) Hospitalist Progress Note REPORT#:[id number] REPORT STATUS: Signed DATE:09/28/18 TIME: 07 PATIENT: GABBIE CASTANEDA UNIT #: [id number] ROOM/BED: [place] [address] : 42 AGE: 78 SEX: F ATTEND: [...] 96 Room air 09/28 0230 98 Nasal 2.659844 cannula 09/28 0028 98.2 71 19 120/69 85.8 98 Nasal cannula 09/28 0028 98.2 71 19 120/69 85.8 98 Nasal cannula 09/27 2218 Nasal 2.335345 cannula 09/27 2047 97.7 71 19 111/56 [...] LE with 2+ edema Musculoskeletal: normal inspection Neuro/NUCLEAR TECHNOLOGIST: alert, oriented X 3 Diagnosis, Assessment Plan [...] at least a week, discussed with Attending/pcp, VIDYA for SNF placement at 1621 at 1339 RPT #:[id number] END OF REPORT [facility] 2018-09-27 10:33:00 [facility] ([facility]) DT Operative Note REPORT#:[id number] REPORT STATUS: Signed DATE:09/27/18 TIME: 1033 PATIENT: GABBIE CASTANEDA UNIT #: [id number] ROOM/BED: Y3141 : 42 AGE: 78 SEX: F ATTEND: [...] application 200 cm2 SURGEON: Marlene Taylor M.D. [employer] HELICOPTER: Deangelo Rebolledo ANESTHESIA: Per anesthesia. FLUIDS: Per [...] tolerated the procedure well. at 2226 RPT #:[id number] END OF REPORT [facility] 2018-09-27 10:13:00 [facility] ([facility]) Brief Op Note REPORT#:[id number] REPORT STATUS: Signed DATE:09/27/18 TIME: 1013 PATIENT: GABBIE CASTANEDA LITZY UNIT #: [id number] ROOM/BED: [place] [id number] : 42 AGE: 78 SEX: F ATTEND: [...] application 200 cm2 Primary Surgeon: Marlene Taylor Color Consultant(s): Deangelo Rebolledo Findings: Hemostatic right medial calf [...] if questions. Patient to follow up with: [facility] [address], [address] PATIENT SHOULD CALL TO MAKE APPOINTMENT IN 3-4 WEEKS at 1028 RPT #:[id number] END OF REPORT [facility] 2018-09-27 06:36:00 [facility] ([facility]) Hospitalist Progress Note REPORT#:[id number] REPORT STATUS: Signed DATE:09/27/18 TIME: 06 PATIENT: GABBIE CASTANEDA UNIT #: [id number] ROOM/BED: Y314-1 : 42 AGE: 78 SEX: [...] 09/27 1110 70 16 136/60 96 Nasal 2.081742 cannula 09/27 1100 64 16 138/60 95 Nasal 2.102532 cannula 09/27 1050 70 16 130/60 96 Nasal 3.780706 cannula 09/27 1040 68 16 124/60 97 Nasal 3.981688 cannula 09/27 1030 72 16 126/60 97 Nasal 2.683505 cannula 09/27 1021 Nasal 2.876621 cannula 09/27 1020 60 16 130/60 96 Nasal 2.984452 cannula 09/27 1010 76 16 130/60 94 Room air 09/27 1000 99.4 76 16 126/56 98 Room air 09/27 0955 99.4 76 16 126/62 98 Room air 09/27 0817 131/76 94.0 09/27 0817 131/76 94.0 09/27 0753 74 131/76 94.0 97 09/27 0718 98 Nasal 2.144576 cannula 09/27 0653 78 141/70 93.8 96 09/27 0638 82 137/73 94.5 98 09/27 0636 99.3 75 19 96/55 68.6 96 Nasal cannula 09/27 0442 99.1 80 19 128/67 86.9 100 Nasal cannula 09/27 0013 99.9 83 18 139/72 94.3 97 Nasal cannula 09/26 2114 Nasal 2.572799 cannula 09/26 2001 99.0 82 19 143/63 89.9 95 Nasal cannula 09/26 2001 99.0 82 19 143/63 89.9 95 Nasal cannula 09/26 1925 96 Nasal 2.546526 cannula 24 hour I O ending at [...] LE with 2+ edema Musculoskeletal: normal inspection Neuro/NUCLEAR TECHNOLOGIST: alert, oriented X 3 Diagnosis, Assessment Plan [...] ppx: scds, holding Xarelto at 1711 RPT #:[id number] END OF REPORT [facility] 2018-09-27 06:36:00 [facility] ([facility]) Hospitalist Progress Note REPORT#:[id number] REPORT STATUS: Signed DATE:09/27/18 TIME: 06 PATIENT: GABBIE CASTANEDA UNIT #: [id number] ROOM/BED: [place] : 42 AGE: 78 SEX: F ATTEND: [...] 09/27 1110 70 16 136/60 96 Nasal 2.463175 cannula 09/27 1100 64 16 138/60 95 Nasal 2.376996 cannula 09/27 1050 70 16 130/60 96 Nasal 3.112543 cannula 09/27 1040 68 16 124/60 97 Nasal 3.730601 cannula 09/27 1030 72 16 126/60 97 Nasal 2.111492 cannula 09/27 1021 Nasal 2.563963 cannula 09/27 1020 60 16 130/60 96 Nasal 2.464195 cannula 09/27 1010 76 16 130/60 94 Room air 09/27 1000 99.4 76 16 126/56 98 Room air 09/27 0955 99.4 76 16 126/62 98 Room air 09/27 0817 131/76 94.0 09/27 0817 131/76 94.0 09/27 0753 74 131/76 94.0 97 09/27 0718 98 Nasal 2.789317 cannula 09/27 0653 78 141/70 93.8 96 09/27 0638 82 137/73 94.5 98 09/27 0636 99.3 75 19 96/55 68.6 96 Nasal cannula 09/27 0442 99.1 80 19 128/67 86.9 100 Nasal cannula 09/27 0013 99.9 83 18 139/72 94.3 97 Nasal cannula 09/26 2114 Nasal 2.244731 cannula 09/26 2001 99.0 82 19 143/63 89.9 95 Nasal cannula 09/26 2001 99.0 82 19 143/63 89.9 95 Nasal cannula 09/26 1925 96 Nasal 2.882281 cannula 24 hour I O ending at [...] LE with 2+ edema Musculoskeletal: normal inspection Neuro/NUCLEAR TECHNOLOGIST: alert, oriented X 3 Diagnosis, Assessment Plan [...] holding Xarelto at 1711 at 1339 RPT #:[id number] END OF REPORT [facility] 2018-09-26 17:25:00 [facility] ([facility]) Hospitalist Progress Note REPORT#:[id number] REPORT STATUS: Signed DATE:09/26/18 TIME: 1725 PATIENT: GABBIE CASTANEDA UNIT #: [id number] ROOM/BED: Y3141 : 42 AGE: 78 SEX: F ATTEND: [...] 100 Nasal cannula 09/26 0929 97 Nasal 2.760074 cannula 09/26 0737 98.8 78 18 127/61 82.9 98 Nasal cannula 09/26 0424 98.2 70 18 140/73 95.2 96 Nasal cannula 09/26 0424 98.2 70 18 140/73 95.2 96 Nasal cannula 09/26 0116 100 Nasal 2.463027 cannula 09/26 0021 98.6 71 16 122/69 86.5 97 09/26 0010 66 111/51 71.2 98 09/26 0001 97.7 67 20 128/72 90.6 98 Nasal cannula 09/25 2355 67 128/72 90.6 98 04/07 2340 66 118/67 84.2 98 04/ 2325 66 134/65 87.9 97 / 2310 65 131/67 88.1 97 / 2255 65 115/46 69.5 98 / 2240 66 123/62 82.5 97 / 2233 Nasal 2.285224 cannula 09/255 62 116/60 78.8 96 / 2155 64 123/66 85.0 98 / 2140 61 119/63 81.3 99 /5 62 117/57 77.2 98 /2110 62 120/63 82.1 100 09/26 2047 96.8 66 18 121/51 74.3 100 09/25 2017 100 Nasal 2.959766 cannula 09/25 2010 62 118/61 80.2 100 09/25 194 97.5 61 20 120/66 84.1 100 Nasal cannula 09/25 1941 62 120/66 84.1 100 09/25 1912 62 99/45 63.4 98 09/25 1857 60 102/49 66.9 98 09/25 1842 61 101/48 65.8 04 1826 61 113/63 79.9 96 09/25 1819 60 89 04/ 1814 3.073260 09/25 1811 61 108/61 76.8 89 09/25 1810 97.3 66 18 122/62 82.1 91 Room air 09/25 1800 60 16 143/63 95 Nasal 2.947677 cannula 09/25 1755 61 16 141/61 96 Nasal 2.227410 cannula 09/25 1750 59 14 130/61 97 Nasal 2.511980 cannula 09/25 1745 58 16 125/59 99 Nasal 2.113748 cannula 09/25 1743 Nasal 2.529437 cannula 09/25 1740 58 14 113/57 95 Nasal 4.912673 cannula 24 hour I O ending at 0700: 04 0700 09/25 1900 Intake Total 950.00 1200.00 [...] PRN IV (DC) Sodium Chloride 1,000 ML .[id number] IV (DC) Ondansetron HCl 4 MG Q8H [...] LE with 2+ edema Musculoskeletal: normal inspection Neuro/NUCLEAR TECHNOLOGIST: alert, oriented X 3 Results Findings/Data: Laboratory [...] - 2.2) 1.0 L Laboratory Tests 09/26 0327 Coagulation PT (9.6 - 12.3 SECONDS) 15.0 H INR 1.32 APTT (22.5 - 35.3 SECONDS) 37.3 H Laboratory Tests 09/26 09/25 0327 1928 Hematology WBC (4.80 - 10.80 x10 [...] (Auto) (24 - 44 %) 10.7 L Davidson % (Auto) (0.0 - 4.0 %) 10.8 [...] ppx: scds, holding Xarelto at 1749 RPT #:[id number] END OF REPORT [facility] 2018-09-26 17:25:00 [facility] ([facility]) Hospitalist Progress Note REPORT#:[id number] REPORT STATUS: Signed DATE:09/26/18 TIME: 1725 PATIENT: GABBIE CASTANEDA UNIT #: [id number] ROOM/BED: Y314-1 : 42 AGE: 78 SEX: [...] 73 18 122/74 90.0 98 Nasal cannula 04/08 1131 99.3 79 18 116/65 81.7 100 Nasal cannula 04/08 0929 97 Nasal 2.648290 cannula 04/08 0737 98.8 78 18 127/61 82.9 98 Nasal cannula 04/08 0424 98.2 70 18 140/73 95.2 96 Nasal cannula 04/08 0424 98.2 70 18 140/73 95.2 96 Nasal cannula 04/08 0116 100 Nasal 2.778198 cannula 04/08 0021 98.6 71 16 122/69 [...] 66 123/62 82.5 97 04/07 2233 Nasal 2.992515 cannula 04/07 2225 62 116/60 78.8 96 04/07 2155 64 123/66 85.0 98 04/07 2140 61 119/63 81.3 99 04/07 2125 62 117/57 77.2 98 04/07 2111 62 120/63 82.1 100 04/07 2048 96.8 66 18 121/51 74.3 100 04/07 2017 100 Nasal 2.028000 cannula 04/07 2010 62 118/61 80.2 100 04/07 1943 97.5 61 20 120/66 84.1 100 Nasal cannula 04/07 1941 62 120/66 84.1 100 04/07 1912 62 99/45 63.4 98 04/07 1857 60 102/49 66.9 98 04/07 1842 61 101/48 65.8 04/07 1826 61 113/63 79.9 96 04/07 1819 60 89 04/07 1814 3.100256 04/07 1811 61 108/61 76.8 89 04/07 1810 97.3 66 18 122/62 82.1 91 Room air 04/07 1800 60 16 143/63 95 Nasal 2.326110 cannula 04/07 1755 61 16 141/61 96 Nasal 2.661640 cannula 09/25 1750 59 14 130/61 97 Nasal 2.440240 cannula 09/25 1745 58 16 125/59 99 Nasal 2.040147 cannula 09/25 1743 Nasal 2.348413 cannula 09/25 1740 58 14 113/57 95 Nasal 4.481898 cannula 24 hour I O ending at [...] PRN IV (DC) Sodium Chloride 1,000 ML .[id number] IV (DC) Ondansetron HCl 4 MG Q8H [...] LE with 2+ edema Musculoskeletal: normal inspection Neuro/NUCLEAR TECHNOLOGIST: alert, oriented X 3 Results Findings/Data: Laboratory [...] - 2.2) 1.0 L Laboratory Tests 09/26 0327 Coagulation PT (9.6 - 12.3 SECONDS) 15.0 H INR 1.32 APTT (22.5 - 35.3 SECONDS) 37.3 H Laboratory Tests 09/26 09/25 0327 1928 Hematology WBC (4.80 - 10.80 x10 [...] (Auto) (24 - 44 %) 10.7 L Davidson % (Auto) (0.0 - 4.0 %) 10.8 [...] holding Xarelto at 1749 at 1339 RPT #:[id number] END OF REPORT [facility] 2018-09-26 10:01:00 [facility] ([facility]) General Surgery Progress Note REPORT#:[id number] REPORT STATUS: Signed DATE:09/26/18 TIME: 1001 PATIENT: GABBIE CASTANEDA UNIT #: [id number] ROOM/BED: Y314-1 : 42 AGE: 78 SEX: [...] Nasal cannula 09/26 928 O2 Flow Rate 2.950013 09/26 928 B/P 127/61 09/26 736 B/P Mean 82.9 09/26 736 Temp 98.8 09/26 736 Pulse 78 09/26 736 Resp 18 09/26 736 Vital Signs Date Temp Pulse Resp B/P B/P Mean Pulse Ox FiO2 09/25-09/26 96.8-98.8 57-78 12-20 99-143/45-73 63.4-95.2 89-100 24 hour I O ending at 0700: 09/26 1900 Intake Total 950.00 1200.00 Output Total [...] PRN IV (DC) Sodium Chloride 1,000 ML .[id number] IV (DC) Ephedrine Sulfate 0 .STK-MED ONE [...] dressing intact Respiratory: symmetric expansion, no distress Neuro/NUCLEAR TECHNOLOGIST: alert, 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 Results Findings/Data: Laboratory Tests 09/26/18 0327: [Embedded Image Not Available] 09/25/18 1928: [Embedded Image Not Available] 09/25/18 1409: [Embedded Image Not Available] Laboratory Tests 09/26 032 Chemistry Sodium (133 - 145 MMOL/L) 142 [...] - 2.2) 1.0 L Laboratory Tests 09/26 1402 1126 Coagulation PT (9.6 - 12.3 SECONDS) [...] (Auto) (24 - 44 %) 10.7 L Davidson % (Auto) (0.0 - 4.0 %) 10.8 [...] outcomes and treatment course. at 1004 RPT #:[id number] END OF REPORT [facility] 2018-09-26 10:01:00 [facility] ([facility]) General Surgery Progress Note REPORT#:[id number] REPORT STATUS: Signed DATE:09/26/18 TIME: 1001 PATIENT: GABBIE CASTANEDA UNIT #: [id number] ROOM/BED: [place] [address] : 42 AGE: 78 SEX: F ATTEND: [...] Nasal cannula 09/26 928 O2 Flow Rate 2.299968 09/26 928 B/P 127/61 09/26 736 B/P Mean 82.9 09/26 736 Temp 98.8 09/26 736 Pulse 78 09/26 736 Resp 18 09/26 736 Vital Signs Date Temp Pulse Resp B/P B/P Mean Pulse Ox FiO2 09/25-09/26 96.8-98.8 57-78 12-20 99-143/45-73 63.4-95.2 89-100 24 hour I O ending at 0700: 09/26 1900 Intake Total 950.00 1200.00 Output Total [...] PRN IV (DC) Sodium Chloride 1,000 ML .[id number] IV (DC) Ephedrine Sulfate 0 .STK-MED ONE [...] dressing intact Respiratory: symmetric expansion, no distress Neuro/NUCLEAR TECHNOLOGIST: alert, 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 Results Findings/Data: Laboratory Tests 09/26/18 0327: [Embedded Image Not Available] 09/25/18 1928: [Embedded Image Not Available] 09/25/18 1409: [Embedded Image Not Available] Laboratory Tests 09/26 09/26 0327 0327 Chemistry [...] 37.3 H Laboratory Tests 09/26 09/25 09/25 032 1928 1409 Hematology WBC (4.80 - 10.80 [...] (Auto) (24 - 44 %) 10.7 L Davidson % (Auto) (0.0 - 4.0 %) 10.8 [...] 0.0 %) 0.0 Laboratory Tests 09/25 09/25 192 1126 Miscellaneous Miscellaneous Test Called Called Diagnosis, [...] 1146: Attestations Midlevel/Physician Attestation Physician attestation: The PA/SENIOR COST ESTIMATOR's history, physical exam, assessment and plan was [...] with patient. at 1004 at 1148 RPT #:[id number] END OF REPORT [facility] 2018-09-25 18:28:00 [facility] ([facility]) DT Operative Note REPORT#:[id number] REPORT STATUS: Signed DATE:09/25/18 TIME: 8 PATIENT: GABBIE CASTANEDA UNIT #: [id number] ROOM/BED: Y314-1 : 42 AGE: 78 SEX: [...] vein and branches SURGEON: Marlene Taylor M.D. [employer] HELICOPTER: Carmen Nelson ANESTHESIA: Per anesthesia. FLUIDS: Per [...] tolerated the procedure well. at 2212 RPT #:[id number] END OF REPORT [facility] 2018-09-25 17:54:00 [facility] ([facility]) Brief Op Note REPORT#:[id number] REPORT STATUS: Signed DATE:09/25/18 TIME: 1754 PATIENT: GABBIE CASTANEDA UNIT #: [id number] ROOM/BED: [place] [address] : 42 AGE: 78 SEX: F ATTEND: [...] vein and branches Primary Surgeon: Marlene Taylor Color Consultant(s): Carmen Nelson Findings: Necrotic skin, subcutaneous tissue right over medial calf requiring excisional debridement Evacution 1L of blood, ligation of saphenous vein and branches Wet to dry packing performed Complications: none Estimated blood loss in ml's: 1 L Specimens removed/altered: none Disposition: PACU at 1759 [facility] #:[id number] END OF REPORT [facility] 2018-09-25 17:39:00 [id number] [place], [place] PATIENT NAME: GABBIE CASTANEDA ADMIT DATE: 09/25/18 ACCOUNT NO: [id number] ROOM NO: D.Y314 AGE: 78 REPORT TYPE: [...] knee replacement. The patient returns to the [facility] Emergency Department 09/25/2018. Her 7 cm [...] mg p.o. daily. PATIENT NAME: GABBIE CASTANEDA LITZY 6. Gastrointestinal and deep venous thrombosis prophylaxis, bilateral SCDs, Pepcid 20 mg p.o. daily. DISPOSITION: Admitted to the medical surgical floor for further evaluation. Postoperative management as per above. Dictated By: Denton Masterson MD WT: CODEY:SERENE/DARRYL/KEISHA Conf#: [id number]/DID#: [id number] Authenticated by Denton Masterson MD On 09/28/2018 07:06:51 AM at 0707 PATIENT NAME: GABBIE CASTANEDA [facility] 2018-09-25 15:50:00 [facility] ([facility]) Clinical Note REPORT#:[id number] REPORT STATUS: Signed DATE:09/25/18 TIME: 1550 PATIENT: GABBIE CASTANEDA UNIT #: [id number] ROOM/BED: [place] [id number] : 42 AGE: 78 SEX: F ATTEND: [...] to follow. Thank you at 1552 RPT #:[id number] END OF REPORT [facility] 2018-09-25 08:35:00 [facility] ([facility]) Clinical Note REPORT#:[id number] REPORT STATUS: Signed DATE:09/25/18 TIME: 08 PATIENT: GABBIE CASTANEDA UNIT #: [id number] ROOM/BED: : 42 AGE: 78 SEX: F [...] is a 78 F who presented to [facility] ED due to CC of RLE pain and hematoma. She states that about 3 days ago. This was a same height fall and she presented to [facility] ED at that time for evaluation in [...] PO 07/09/17 09/25/18 (KLOR-CON M20) DAILY 1800 1627 0624 Strength: 20 MEQ TAB.SR amLODIPine (NORVASC) 10 MG PO DAILY 1800 07/09/17 09/25/18 Strength: 10 MG TAB 1627 0624 FUROSEMIDE (LASIX) 20 MG PO DAILY 1800 07/09/17 09/25/18 Strength: 20 MG TAB 1628 0624 predniSONE 3 MG PO DAILY 07/09/17 09/25/18 Strength: 1 MG TAB 1856 0624 VALSARTAN (DIOVAN) 320 MG PO DAILY 07/09/17 09/25/18 Strength: 320 MG TAB 1857 0624 ALLOPURINOL (ZYLOPRIM) 300 MG PO DAILY 07/10/17 09/25/18 Strength: 300 MG TAB 1849 0624 HYDROcodone/APAP 1 TAB PO 07/10/17 09/25/18 (NORCO 10/325) TID PRN PAIN 185 0624 Strength: 1 TAB TAB METOPROLOL SUCC [...] 799 DC 09/25 (SUBLIMAZE 100MCG/ IV 09/25 800 0801 2ML INJECTION) Morphine Sulfate 4 MG [...] midline vertebral tenderness or gross step off Neuro/NUCLEAR TECHNOLOGIST: GCS: 15 Skin: Warm, dry. There is a 51.5 cm hematoma noted to right lower lateral leg. ___ LABS: Reviewed. RADIOLOGY: I have reviewed the images and reports personally. Laboratory Tests: 09/25 06 Chemistry Sodium (133 - 145 MMOL/L) 142 [...] (Auto) (24 - 44 %) 12.5 L Davidson % (Auto) (0.0 - 4.0 %) 9.6 [...] By: KellenMMCCas Dallas MD at 0852 RPT #:[id number] END OF REPORT [facility] 2018-09-25 08:35:00 [facility] ([facility]) Clinical Note REPORT#:[id number] REPORT STATUS: Signed DATE:09/25/18 TIME: 834 PATIENT: GABBIE CASTANEDA UNIT #: [id number] ROOM/BED: [place] [address] : 42 AGE: 78 SEX: F ATTEND: [...] is a 78 F who presented to [facility] ED due to CC of RLE pain and hematoma. She states that about 3 days ago. This was a same height fall and she presented to [facility] ED at that time for evaluation in [...] PO 07/09/17 09/25/18 (KLOR-CON M20) DAILY 1800 1626 1124 Strength: 20 MEQ TAB.SR amLODIPine (NORVASC) 10 MG PO DAILY 179907/09/17 09/25/18 Strength: 10 MG TAB 162 0624 FUROSEMIDE (LASIX) 20 MG PO DAILY 179907/09/17 09/25/18 Strength: 20 MG TAB 16201 2424 predniSONE 3 MG PO DAILY 07/09/17 09/25/18 Strength: 1 MG TAB 185 0624 VALSARTAN (DIOVAN) 320 MG PO DAILY 07/09/17 [...] 50 MCG ONCE ONE 09/25 08 DC 09/25 (SUBLIMAZE 100MCG/ IV 09/25 08 [...] midline vertebral tenderness or gross step off Neuro/NUCLEAR TECHNOLOGIST: GCS: 15 Skin: Warm, dry. There is [...] (Auto) (24 - 44 %) 12.5 L Davidson % (Auto) (0.0 - 4.0 %) 9.6 [...] at the time of dictation. Impression By: [facility] - Marlene Singh MD 09/26/18 1142: Clinical Note Note: The PA/SENIOR COST ESTIMATOR's history, physical exam, assessment and plan was [...] of bleeding. at 0852 at 1145 RPT #:[id number] END OF REPORT [facility] 2018-09-25 06:22:00 [facility]) OR A CAMPUS OF [facility] EMERGENCY PROVIDER REPORT REPORT#:[id number] REPORT STATUS: Signed DATE:09/25/18 TIME: 621 PATIENT: GABBIE CASTANEDA LITZY UNIT #: [id number] ROOM/BED: Y314-1 AGE: 78 SEX: F PCP PHYS: Chele Bass MD SERVICE AUTHOR: Luke Hercules DO * ALL edits or amendments must be made on the electronic/computer document * HPI-Extremity Prob Lower General Confirmed Patient Yes Patient Type Existing patient Initial Greet Date/Time 09/25/18 0622 Presentation Chief Complaint Leg problem R Hx [...] Use Opiates (HYDROCODONE PRESCRIBED) 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 Trauma/Burn/Environmental Hematoma ([id number]) MS Ankle/Foot Ankle/Foot Atraumatic, Inspection NL, Full [...] imaging, Reviewed prior records Results Laboratory Tests 09/25/18 0628: [Embedded Image Not Available] Laboratory Tests: 09/26 [...] (Auto) (24 - 44 %) 12.5 L Davidson % (Auto) (0.0 - 4.0 %) 9.6 [...] time of dictation. Impression By: [facility] - Zhou Dallas MD Lab Imaging Statement Laboratory radiographic studies reviewed and considered in the medical decision-making. Point of Care Testing Pulse Oximetry Pulse Ox % 99 On: Room air Interpretation Interpreted by me, Pulse oximetry normal Time 0941 Portions of this section were scribed by Ariana Webb on 09/25/18 at 1434 Re-Evaluation MDM Re-Evaluation/Progress Re-Evaluation/Progress Text/Dict Note Pt's chart from the 5th states that there was a 7cm x [...] Fentanyl Citrate 50 MCG ONCE ONE 09/25 0935 DC / IV 09/25 0936 0940 Fentanyl Citrate 50 MCG ONCE ONE 09/25 0800 DC / IV 09/25 0801 0801 Morphine Sulfate 4 MG X1ED STA 09/25 0530 DCr / IV 09/25 0631 0637 Diagnostic Agents Sig/Joanne Start time Last Medication Dose Route Stop Time Status Admin Iopamidol 0 .STK-MED ONE 09/25 0737 DCr 09/25 IV 0744 Gastrointestinal Drugs Sig/Joanne Start time Last Medication Dose Route Stop Time Status Admin Ondansetron HCl 4 MG X1ED STA 09/25 0630 DC / IV 09/25 0631 0637 Consultation Consultation Referral/Consult Name Marlene Taylor MD Supervisor Transferring And Boxing Called General Surgery Requested Call Time 0849 Requested Call Date 09/25/18 Call Returned Call returned Call Returned Time 0849 Call Returned Date 09/25/18 Supervisor Transferring And Boxing Will see patient Free Text Consult Notes Dr. Taylor evaluated pt and recommends admission to medicine. Portions of this section were scribed by Ariana Webb on 09/25/18 at 1025 Patient Discharge Departure Vital Signs/Condition Vital Signs First Documented: Result Date Time Pulse Ox 98 09/25 0519 B/P 178/72 09/25 0519 B/P Mean 107 09/25 0519 O2 Delivery Room air 09/25 618 Temp 36.5 09/25 618 Pulse 61 09/25 0519 Resp 18 09/25 618 Last Documented: Result Date Time Pulse Ox 99 09/25 1000 B/P 139/64 / 1000 Temp 37.1 09/25 1000 Pulse 59 04/ 1000 Resp 18 09/25 1000 B/P Mean [...] )( Admission Accepts Yes )( Accepted Time 111 )( Accepted Date 09/25/18 Call Information will [...] on 09/25/18 at 1025 at 0633 RPT #:[id number] END OF REPORT [facility] 2018-09-23 18:46:00 [facility]) OR A [facility]AMPUS OF [facility] EMERGENCY PROVIDER REPORT REPORT#:[id number] REPORT STATUS: Signed DATE:09/23/18 TIME: 1845 PATIENT: GABBIE CASTANEDA UNIT #: [id number] ROOM/BED: AGE: 78 SEX: F PCP PHYS: [...] at 2129 Risk-Head Prob/Injury Risk Stratification )( Niotaze Coma Score > Age 5 )( Niotaze Coma Score > Age 5 Response Value [...] or older: Never Smoker 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 Eyes Eyes Atraumatic, PERRL, [...] scribed by Darrin Berry on 09/23/18 at 2128 Re-Evaluation MDM Free Text MDM Notes Free Text MDM Notes differential diagnoses: closed head injury ED Course Medication(s) Ordered Medication(s) Ordered: Central Nervous System Agents Sig/Joanne Start time Last Medication Dose Route Stop Time Status Admin Hydrocodone Bitart/ 1 TAB X1ED STA 09/23 2114 DCr / Acetaminophen PO 09/23 Acetaminophen 1,000 MG X1ED STA 09/23 2029 DC 04/05 PO 09/23 Portions of this section were scribed by Darrin Berry on 09/23/18 at 2128 Patient Discharge Departure Vital Signs/Condition Vital Signs First Documented: Result Date Time Pulse Ox 100 09/23 183 B/P 164/72 09/23 183 B/P Mean 102 09/23 1833 Temp 98.2 [...] Supervising Physician Note Scribe Statement Darrin Berry, 09/23/180, scribing for and in the presence of [Dr. Dominguez]. Signed By: Darrin Berry, 09/23/182129 Provider Scribed Statement I personally performed the services described in this documentation and reviewed the documentation that was dictated to the scribe(s) in my presence, and it accurately records my words and actions. Luke Dominguez, 09/24/18 Portions of this section were scribed by Darrin Berry on 09/23/18 at 4308 at [facility] #:[id number] END OF REPORT [facility]
[2024-10-18] MEDS ORDERED: HYDROCODONE/APAP 10/325 TAB PO PRN (11:21)
[2024-10-18] MEDS: FUROSEMIDE 40 MG TABLET PO SCH (16:41)
[2024-10-18] MEDS ORDERED: APIXABAN 2.5 MG TABLET PO SCH (20:00)
[2024-10-18] MEDS: APIXABAN 5 MG TABLET PO SCH (20:11)
[2024-10-18] MEDS: GABAPENTIN 100 MG CAP PO SCH (20:11)
[2024-10-18 21:53] LABS: Specific Gravity 1.011 (1.005-1.030); Urine Bilirubin NEGATIVE (Negative); Urine Blood Negative (Negative); Urine Clarity Clear (Clear); Urine Color Light-Yellow (Yellow); Urine Glucose NEGATIVE (Negative); Urine Ketones NEGATIVE (Negative); Urine Microscopic Reflex YN NO UMIC; Urine Nitrite NEGATIVE (Negative); Urine Protein NEGATIVE (Negative); Urine Urobilinogen Normal (Normal); Urine pH 6.5 (5.0-7.0)
--- NOTE | 2024-10-18 23:24 | HP ---
Date of Admission: 10/18/2024 Time Of Service: 1 p.m. Chief Complaint: "I have shortness of breath. I need to get stronger." History Of Present Illness: Ms. Castaneda is an 84-year-old patient with atrial fibrillation, hypertensi on, congestive heart failure, gout, dyslipidemia, and arthritis, who presented to the emergency room with 2 days of productive cough with green sputum. Prior to that, she actually had an episode of pne umonia 3 months ago. Her initial evaluation did identify acute hypoxic respiratory failure secondary to diastolic congestive heart failure exacerbation, fluid volume overload, and pulmonary edema with risk of pneumonia. She also course had atrial fibrillation. 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 She did receive Lasix for fluid management, oxygen 2 L via nasal c annula, respiratory therapy, IV antibiotics, fluid restrictions and monitoring. She did that includi ng her telemetry monitoring. She had her pain issues addressed. She was evaluated by Therapy and fo und to have decreased endurance, impaired mobility, impaired difficulty with mobilization, and transf ers in addition to her laboratory abnormalities, fluctuating blood pressures, low hemoglobin hematocr it. Prior to the patient's hospitalization, she was actually independent with mobility and all activ ities of daily living including using a walker while mobilizing at home. Currently, her evaluation i dentified that she needs contact guard assistance for all mobility issues and transfers and for perfo rmance of activities of daily living to reduce the risk of falling and return to her prior level of f unctioning. As a result, she is admitted to the inpatient rehabilitation unit for such therapy. Adm ission to a lower level facility would likely result in her not do well and perhaps worsening medical condition and rehospitalization. Past Medical History: As noted above. Past Surgical History: Total abdominal hysterectomy, cholecystectomy, appendectomy. Allergies: NO KNOWN DRUG ALLERGIES. Medications: [place] 7.5/325 every 6 hours as needed, allopurinol 300 mg daily, Eliquis 5 mg twice amado ly, Tessalon Perles 200 mg 3 times daily, Lasix 40 mg twice daily, gabapentin 100 mg twice daily, Syn throid 0.112 mg daily, Bystolic 20 mg daily, prednisone 20 mg daily, valsartan 320 mg daily. Family History: Noncontributory. Social History: No alcohol, tobacco, or IV drug use. The patient has family and lives at home. Review of Systems: Mild shortness of breath, mild swelling in lower extremities and some changes in skin tone and colora tion in the lower extremities. Otherwise, no other positives on the systems review. Physical Examination: Vital Signs: Blood pressure is ranging 99 to 126 over 43 to 58, pulse of 62 to 65, respiratory rate 16 to 18, temperature 97.8, oxygen saturation 94%. Weight 195 pounds, height 5 feet, BMI 38.1. General: Again, Ms. Castaneda is resting comfortably. She is in no significant distress. HEENT: She appears normocephalic and atraumatic. Sclerae anicteric. Extremities: No clubbing, cyanosis, or edema. Just mild edema in the lower extremities. She does h ave diffuse weakness in upper and lower extremity, but no focal findings to suggest a stroke. Current Level Of Functioning: Currently, she requires setup assistance for grooming, moderate assist ance for bathing, upper body dressing is at a setup assistance level, lower body dressing supervision , toileting supervision, wheelchair transfers supervision, toilet transfer to supervision. Ambulatio n, she ambulated with supervision just 20 feet. Rehab And Medical Assessment And Plan: Ms. Castaneda is an 84-year-old patient, [facility] with impairment category 14, cardiac. Her impairment group code is 09, cardiac . Etiologic diagnosis is diastolic congestive heart failure. Her comorbid conditions do include dec reased mobility, decreased physical functioning, atrial fibrillation, hypertension, congestive heart failure diastolic, gout, dyslipidemia, rheumatoid arthritis. Plan: She will have physical, occupational, and if need be speech therapy for 3.5 hours, 5 of 7 days . Her comorbid conditions will be addressed including gabapentin for neuropathic pain, Synthroid for hypothyroidism, Diovan and Lasix for fluid and blood pressure management. She has Eliquis again for stroke and DVT risk reduction, allopurinol for gout, [place] as needed for pain, prednisone for adrena l insufficiency. She has Bystolic and beta-augustus for heart rate control. Comorbidities That Are Impacting Rehabilitation: She does have the full dose Eliquis 5 mg twice miryam y, which puts her at risk of bleeding with trauma, especially at noncompressible site such as if she hits her head and then the abdominal area. As a result, fall precautions will be strictly adhered to . When the patient is mobilizing, she will have a gait belt and wheelchair until the patient mobiliz es with a rolling walker and if need be, chair and bed alarm will be in place. There is a risk of th e possible pneumonia. The patient will work with Speech Pathology and if need be nebulizer treatment s in addition to incentive spirometry will be applied. Rehab Specific Plan: Ms. Castaneda will have 3 hours a day, 5 of 7 days of therapy to improve her abilit y to transfer from bed to chair using a rolling walker and wheelchair to mobilize and to get on and o ff the toilet, in and out of shower, to work on upper and lower body dressing, maintaining her balanc e coordination as she does so, to perform activities of daily living and to maintain safety awareness as she does all activities. Ms. Castaneda has a good understanding of the process of admission to the inpatient rehabilitation unit, how she will benefit from physical, occupational, and if need be speech therapy. She will have 24 ho urs a day, 7 days a week skilled rehabilitation and nursing, daily physician evaluation and managemen t, and social services manager evaluation and management for discharge planning, home equipment, and to follo w up with therapy after discharge. If need be, additional help will be sought from the Pulmonary Ser vice and Hospitalist Service. Barriers To Discharge: The patient is at significant risk of worsening pulmonary functioning and jeanie l be carefully monitored in terms of oxygenation. If need be, she may have to go back to acute care forward, but the goal is for her to do very well while in rehab and to be able to return home and con tinue therapy via Home Health. Length Of Stay: About 12 to 14 days. Disposition: Expected to go home and continue therapy via Home Health. Prognosis: Good. Code Status: Full code. Rehab Specific Goals: 1. Become independent with upper and lower body dressing, donning and doffing footwear, and performin g all activities of daily living independently. 2. Independently mobilize 250 feet, independently ambulate with a rolling walker 250 feet, and indepe ndently go up and down 10 steps with bilateral handrails. 3. Independently monitor her safety awareness and have family help her to be independent as she goes back home. The above goals were reviewed with Ms. Castaneda and she is in agreement. By signing this document, I acknowledge I personally performed a full physical examination on Ms. Irene han no later than 24 hours after her admission to the inpatient rehabilitation unit and determined she is able to tolerate the above course of treatment at an intensive level for reasonable period of gertrudis e. A detailed individualized plan of care for her will be completed by hospital day 4 based on the p readmission screen, history and physical, and therapy evaluations. EBTZAIDA Voice ID: [id number]
[2024-10-19 05:51] LABS: Absolute Eosinophils 0.2 K/uL (0-0.5); Absolute Lymphocytes (CBC) 1.5 K/uL (0.7-4.9); Absolute Monocytes 0.6 K/uL (0.1-1.3); Absolute Neutrophil 2.3 K/uL (1.8-8.0); Basophils % 0.8 % (0-1.3); Eosinophils % 5.2 % (0-4.4); Hematocrit 32.3 % (36.0-45.0); MCH 29.8 pg (27.0-35.0); MCV 87.6 fL (80-100); MPV 8.7 fL (7.6-11.3); Monocytes % 12.9 % (3.3-12.3); Neutrophils % 49.1 % (41.7-73.7); Nucleated Red Blood Cells % 0.1 % (0-0); Platelets 248 thou/uL (152-406); RBC Red Blood Cell Count 3.68 M/uL (3.86-4.86); Red Cell Distribution Width 16.2 % (12.1-15.2)
[2024-10-19 06:14] LABS: Albumin 2.3 g/dL (3.4-5.0); Anion Gap 7.5 mEq/L (5.0-15.0); Magnesium 2.2 mg/dL (1.6-2.4); Potassium 3.5 mEq/L (3.5-5.1); Prealbumin 10.7 mg/dL (20-40)
[2024-10-19] MEDS: LEVOTHYROXINE SOD 0.112 MG TAB PO SCH (06:57)
[2024-10-19] MEDS: allopurinoL 300 MG TAB PO SCH (07:41)
[2024-10-19] MEDS: DAPAGLIFLOZIN 10 MG PO SCH (07:42)
[2024-10-19] MEDS: VALSARTAN 160 MG TAB PO SCH ×2 (08:00→20:46)
[2024-10-19] MEDS: predniSONE 20 MG TAB PO SCH (09:09)
[2024-10-19] MEDS: NYSTATIN PWDR 100000 UNIT/GM TOP SCH (09:27)
[2024-10-19] MEDS: NEBIVOLOL HCL 20 MG TABLET PO SCH (10:26)
[2024-10-19] MEDS ORDERED: GUAIFENESIN/DM 5 ML UCUP PO PRN (19:27)
[2024-10-19] MEDS: HYDROCODONE/APAP 7.5/325 MG TAB PO PRN (20:45)
[2024-10-19] MEDS: ENSURE ENLIVE 237 ML CAN PO SCH (20:46)
[2024-10-19] MEDS: BENZONATATE 100 MG CAP PO PRN (20:46)
--- NOTE | 2024-10-20 00:20 | PN ---
Date of Progress Note: 10/19/2024 Time Of Service: 1:20 p.m. Subjective: Ms. madrigal is resting comfortably in bed, in no acute distress. She is making good progr ess so far with therapy and has no new complaints. Review of Systems: Mild shortness of breath with exertion. No fevers, chills. No nausea, vomiting. Mild myalgias, art hralgias. No rash. Physical Examination: Vital Signs: Blood pressure 120/58, pulse 61, respiratory rate 18, temperature 97.5, oxygen saturati on 97%. Weight 195 pounds, height 5 feet, BMI 38.1. General: Ms. Castaneda is resting comfortably in between therapy sessions. She is in no significant dis tress. HEENT: Normocephalic, atraumatic. Sclerae anicteric. Lungs: Fair air movement bilaterally. Abdomen: Soft. No significant edema or cyanosis noted. Laboratory Studies: White blood cell count 4.7, hemoglobin 11.0, platelets 248. Sodium 139, potassi um 3.5, chloride is 100, glucose 91, calcium 9.2. Magnesium 2.2. Albumin 2.3, prealbumin 10.7. Ur inalysis is unremarkable. X-rays/imaging: No x-rays or imaging. Medications: [place] 7.5/325 every 6 hours as needed, allopurinol 300 mg daily, Eliquis 5 mg twice amado ly, Tessalon Perles 200 mg 3 times daily, Lasix 40 mg twice daily, gabapentin 100 mg twice daily, ___ 10 mg every 4 hours as needed for mild cough, Synthroid 0.112 mg daily, Bystolic 20 mg daily, nystatin apply topically twice daily as needed, Ensure Enlive 237 mL twice daily, prednisone 20 mg d aily, valsartan 160 mg twice daily. Progress Made With Physical, Occupational, And Speech Therapy: With physical therapy today, supine t o sit transfers done with minimum assistance and verbal cues. Ambulated today 50 feet 3 times and 75 feet twice with contact guard assistance using a rolling walker. Mobilized wheelchair 111 feet with standby assistance and verbal cues. With occupational therapy, self propelled wheelchair from room to gym multiple times with short rest breaks and participated well in the session, although she did m lucrecia she has an electric scooter and that is how she will usually maneuver. With speech, she is a ble to recall 3 of 3 unrelated items after 7 minutes independently, required moderate assistance for problem solving and 70% accuracy. Her organizational thinking skills were at 80% accuracy level with minimum assistance. Assessment: Ms. Castaneda is an 84-year-old patient in rehabilitation with congestive heart failure exac erbation. She has decreased mobility, decreased physical functioning, hypertension, shortness of jw ath, hypothyroidism, mild cough, neuropathy, and risk of deep vein thrombus and gout. Plan: Continue physical, occupational, and speech therapy for 3.5 hours, 5 of 7 days. She will cont inue with her list of medications that have been noted above for comorbid conditions. DVT prophylaxi s and stroke risk reduction, Eliquis and she does have a cough addressed with Robitussin, pain is add ressed with [place] and as noted hypertension managed with Diovan and she has potassium replacement on board. Her comorbidities are not negatively impacting her rehabilitation. PHI/ENDER Voice ID: [id number] Report ID: [id number]
[2024-10-20] MEDS: DAPAGLIFLOZIN 10 MG PO SCH (09:29)
[2024-10-20] MEDS: POTASSIUM CL SA 10 MEQ TAB PO SCH (09:30)
--- NOTE | 2024-10-20 13:26 | P.RH.PN ---
Estimated Length of Stay: 12 Expected Discharge Date: 10/28/24 Discharge Disposition Plan: Home Family Support: Yes Group Home Goal: Mobility, Transfers, Self Care Vital Signs: Last Vital Signs Temp 97.6 F 10/20/24 07:15 Pulse 61 10/20/24 09:30 Resp 18 10/20/24 07:15 BP 143/63 H 10/20/24 09:30 Pulse Ox 94 10/20/24 07:15 Laboratory: Laboratory Last Values WBC 4.70 thou/uL (4.3-10.9) 10/19/24 05:32 RBC 3.68 M/uL (3.86-4.86) L 10/19/24 05:32 Hgb 11.0 g/dL (12.0-15.0) L 10/19/24 05:32 Hct 32.3 % (36.0-45.0) L 10/19/24 05:32 MCV 87.6 fL (80-100) 10/19/24 05:32 MCH 29.8 pg (27.0-35.0) 10/19/24 05:32 MCHC 34.0 g/dL (32.0-36.0) 10/19/24 05:32 RDW 16.2 % (12.1-15.2) H 10/19/24 05:32 Plt Count 248 thou/uL (152-406) 10/19/24 05:32 MPV 8.7 fL (7.6-11.3) 10/19/24 05:32 Neutrophils % 49.1 % (41.7-73.7) 10/19/24 05:32 Lymphocytes % 32.0 % (15.3-44.8) 10/19/24 05:32 Monocytes % 12.9 % (3.3-12.3) H 10/19/24 05:32 Eosinophils % 5.2 % (0-4.4) H 10/19/24 05:32 Basophils % 0.8 % (0-1.3) 10/19/24 05:32 Absolute Neutrophils 2.3 K/uL (1.8-8.0) 10/19/24 05:32 Absolute Lymphocytes 1.5 K/uL (0.7-4.9) 10/19/24 05:32 Absolute Monocytes 0.6 K/uL (0.1-1.3) 10/19/24 05:32 Absolute Eosinophils 0.2 K/uL (0-0.5) 10/19/24 05:32 Absolute Basophils 0.0 K/uL (0-0.5) 10/19/24 05:32 Sodium 139 mEq/L (136-145) 10/19/24 05:32 Potassium 3.5 mEq/L (3.5-5.1) 10/19/24 05:32 Chloride 100 mEq/L (98-107) 10/19/24 05:32 Carbon Dioxide 35 mEq/L (21-32) H 10/19/24 05:32 Anion Gap 7.5 mEq/L (5.0-15.0) 10/19/24 05:32 BUN 29 mg/dL (7-18) H 10/19/24 05:32 Creatinine 0.82 mg/dL (0.55-1.02) 10/19/24 05:32 Est GFR (CKD-EPI) 71 ml/min (=/>90) L 10/19/24 05:32 Glucose 91 mg/dL (74-106) 10/19/24 05:32 Calcium 9.2 mg/dL (8.5-10.1) 10/19/24 05:32 Magnesium 2.2 mg/dL (1.6-2.4) 10/19/24 05:32 Albumin 2.3 g/dL (3.4-5.0) L 10/19/24 05:32 Prealbumin 10.7 mg/dL (20-40) L 10/19/24 05:32 Urine Color Light-yellow (Yellow) 10/18/24 21:34 Urine Clarity Clear (Clear) 10/18/24 21:34 Urine pH 6.5 (5.0-7.0) 10/18/24 21:34 Ur Specific [place] 1.011 (1.005-1.030) 10/18/24 21:34 Glucose (UA)(Auto) Negative (Negative) 10/18/24 21:34 Urine Ketones Negative (Negative) 10/18/24 21:34 Urine Blood Negative (Negative) 10/18/24 21:34 Urine Nitrite Negative (Negative) 10/18/24 21:34 Urine Bilirubin Negative (Negative) 10/18/24 21:34 Urine Urobilinogen Normal (Normal) 10/18/24 21:34 Ur Leukocyte Esterase Negative [place]/uL (Negative) 10/18/24 21:34 Urine Total Protein Negative (Negative) 10/18/24 21:34 Weight: 195 lb Wound Present: No Closed Surgical Incision Present: No Negative Pressure Wound Therapy Present: No Physician Update: Labs reviewed and are stable. BIMS 15, SLUMS 16, doing well speech. Mild to moderate memory loss. With PT walking with RW 50' and 75' x 2 with CGA. Bed mobility min assist. Met 5/5 STG with OT, CGA with ADLs. Poor endurance but works hard. Summary: Patient's care plan and manager terminal goals have been reviewed and revised as necessary. Please see the Rehabilitation Signature page for all necessary signatures.
[2024-10-23 04:47] LABS: Absolute Basophils 0.1 K/uL (0-0.5); Absolute Lymphocytes (CBC) 1.7 K/uL (0.7-4.9); Absolute Monocytes 0.7 K/uL (0.1-1.3); Absolute Neutrophil 4.5 K/uL (1.8-8.0); Basophils % 0.7 % (0-1.3); Eosinophils % 0.2 % (0-4.4); Hematocrit 35.3 % (36.0-45.0); Hemoglobin 11.7 g/dL (12.0-15.0); Lymphocytes % 24.8 % (15.3-44.8); MCHC 33.2 g/dL (32.0-36.0); MCV 87.5 fL (80-100); Monocytes % 10.5 % (3.3-12.3); Neutrophils % 63.8 % (41.7-73.7); Nucleated Red Blood Cells % 0.1 % (0-0); Platelets 317 thou/uL (152-406); RBC Red Blood Cell Count 4.04 M/uL (3.86-4.86); Red Cell Distribution Width 15.6 % (12.1-15.2)
[2024-10-23 05:00] LABS: Anion Gap 6.5 mEq/L (5.0-15.0); Potassium 3.5 mEq/L (3.5-5.1)
--- NOTE | 2024-10-24 00:17 | PN ---
Date of Progress Note: 10/23/2024 Time Of Service: 1:10 p.m. Subjective: Ms. Castaneda is resting comfortably. She denies any significant complaints, pain. She has improving shortness of breath from her CHF exacerbation. Objective: No fevers, chills, nausea, vomiting. No significant myalgias, arthralgias, or rash. Physical Examination: Vital Signs: Blood pressure 176/72, pulse 62, respiratory rate 18, temperature 97.5, oxygen saturati on 97%. Lungs: Ms. Castaneda has some mild decreased breath sounds bilaterally. Extremities: No clubbing, cyanosis, or edema. No new or focal findings in terms of her examination. Laboratory Studies: White blood cell count 7.2, hemoglobin 11.7, platelets 317. Sodium 141; potassi um 3.5; chloride 102; carbon dioxide 36; BUN 57; creatinine 1.27, which has increased from 0.82 on e 1st; glucose 95; calcium 9.6. X-ray/imaging: No new x-rays or imaging. Medications: She continues on [place] 7.5/325 every 6 hours as needed, allopurinol 300 mg daily, Eliqu is 5 mg twice daily, Tessalon Perles 200 mg 3 times daily, Lasix 40 mg twice daily. Please note, her Lasix will be cut back to 20 mg twice daily, as she is over diuresed. She will continue [place], levo thyroxine 0.112 mg daily. She has lidocaine patch for pain. Continue with potassium 10 mEq daily, p rednisone 20 mg daily, and valsartan 160 mg twice daily. Progress Made With Physical, Occupational, And Speech Therapy: With physical therapy today, she did perform multiple [id number]-[id number] transfers with contact guard and verbal cues. She did perform multipl e fulxs-me-nroxp transfers with contact guard assistance. She ambulated 250 feet twice and 120 feet once with contact guard assistance with a rolling walker. She mobilized wheelchair 150 feet independ ently. With her occupational therapy, completed shower transfers independently using grab bars. She was independent with bathing, upper and lower body dressing, donning and doffing of footwear. She h ad no loss of balance. Today, with speech, she recalled 2 of 3 pictures from 2 previous sessions wit hout cues. She had 4 pieces of information, which were sequenced accurately with minimum verbal cues . Working memory skills for 3 pieces of information demonstrated with 80% accuracy and minimum lorri tance. Assessment: Ms. Castaneda is an 84-year-old patient in the rehabilitation unit with congestive heart marisol lure exacerbation. She does have increased BUN and creatinine, suggesting overdiuresis with Lasix. Lasix dosage now cut in half. In addition, she still has decreased mobility and decreased physical f unctioning. Risk of deep vein thrombus, on Eliquis and stroke with atrial fibrillation. She has dejuan apentin for neuropathic pain, which is improving. She has Robitussin for cough. Synthroid for hypot hyroidism. She has Bystolic for heart rate and blood pressure control. Ensure for malnutrition. [place] statin powder on board. She has prednisone for adrenal insufficiency. Diovan for heart rate control . Plan: She will continue with physical, occupational, and speech therapy every 3.5 hours, 5 of 7 days . Note, her comorbid that may be impacting rehabilitation includes developing overdiuresis and she i s going to be cut back on Lasix, and may have some gentle rehydration. LB/MODL Voice ID: [id number] Report ID: [id number]
[2024-10-24 05:31] LABS: Absolute Monocytes 0.8 K/uL (0.1-1.3); Absolute Neutrophil 4.8 K/uL (1.8-8.0); Basophils % 0.5 % (0-1.3); Eosinophils % 0.3 % (0-4.4); Hematocrit 33.4 % (36.0-45.0); Hemoglobin 11.4 g/dL (12.0-15.0); Lymphocytes % 25.7 % (15.3-44.8); MCH 30.1 pg (27.0-35.0); MCV 88.4 fL (80-100); MPV 9.1 fL (7.6-11.3); Monocytes % 10.4 % (3.3-12.3); Neutrophils % 63.1 % (41.7-73.7); Nucleated Red Blood Cells % 0.1 % (0-0); Platelets 265 thou/uL (152-406); RBC Red Blood Cell Count 3.78 M/uL (3.86-4.86); Red Cell Distribution Width 15.5 % (12.1-15.2)
[2024-10-24 05:52] LABS: Albumin 2.4 g/dL (3.4-5.0); Anion Gap 7.5 mEq/L (5.0-15.0); Magnesium 2.5 mg/dL (1.6-2.4); Potassium 3.5 mEq/L (3.5-5.1); Prealbumin 28.6 mg/dL (20-40)
[2024-10-24] MEDS: FUROSEMIDE 20 MG TABLET PO SCH (08:04)
[2024-10-24] MEDS: LIDOCAINE 4% PATCH TOP SCH (08:08)
--- NOTE | 2024-10-24 21:52 | PN ---
Date of Progress Note: 10/24/2024 Time Of Service: 1:10 p.m. Subjective: Ms. Castaneda is doing very well, resting comfortably. She is mobilizing well. She is work ing with therapist, ambulating around the unit and feels very good. She is however not yet using inc entive spirometry as she should still have some shortness of breath and difficulty maintaining full f ocus. Objective: No fevers, chills, nausea, vomiting. Mild myalgias, arthralgias. No significant shortne ss of breath. She did appear to be somewhat dehydrated with elevated creatinine, which should be not ed below. She will have fluid restriction adjusted slightly. Her Lasix was cut in half from 40 mg t wice daily to 20 mg twice daily. Physical Examination: Vital Signs: Blood pressure 126/78, pulse 66, respiratory rate of 16, temperature 97.6, oxygen satur ation 96%. General: Ms. Castaneda is sitting in a chair. Family at bedside. HEENT: She does appear normocephalic, atraumatic. Sclerae anicteric. Oropharynx moist. Extremities: No significant edema, cyanosis, or clubbing in the lower extremities. She does have a bandage on the right lateral great toe first interphalangeal joint. Laboratory Studies: White blood cell count 7.7, hemoglobin 11.4, platelets 265. Sodium 141, potassi um 3.5, chloride 102, carbon dioxide 35, BUN 61 increased from 29 on the first and creatinine is now 1.29, yesterday was 1.27, and on the first 0.82, glucose 97, calcium 9.2, magnesium 2.5, albumin 2.4, prealbumin 26.6. X-ray/imaging: No new x-rays or imaging. Medications: Again, her Lasix was cut down to 20 mg twice daily. She will increase her hydration ge ntly. Continue gabapentin 100 mg twice daily for neuropathic pain, Synthroid 0.112 mg daily for hypo thyroidism, lidocaine patch on her shoulders and between the shoulder blades for pain, Ensure Enlive for malnutrition, Mycostatin powder for topical fungal infection. We will continue as well with Diov an for blood pressure control and prednisone for adrenal insufficiency, potassium replacement on d. She does have [place] for pain, allopurinol for gout, and Eliquis 5 mg twice daily for DVT and stro ke risk reduction, Tessalon for cough. Progress Made With Physical And Occupational Therapy: With physical therapy today, she did multiple [id number] transfers with standby assistance and verbal cues, [id number] transfers done with sta ndby assistance. She ambulated 250 feet twice with a rolling walker and 125 feet with contact guard assistance later. She was up and down 15 steps with bilateral handrails with contact guard assistanc e and mobilized a wheelchair 250 feet independently. With occupational therapy, she did kitchen task s reaching for pots during pots on the stove with a 2-pound Thera ball practice reaching in the kitch en and overhead cabinets for improved overhead reaching and safety awareness. With her speech therap y today, she was able to use spaced retrieval to recall 4/4 unrelated pictures without cues after 3, 6, and 10 minutes. Working memory skills used for 4 units of information with 73% accuracy. Assessment And Plan: Ms. Castaneda is an 84-year-old patient with CHF exacerbation, making excellent pro nuris with physical, occupational, and speech therapy. She still has some decreased mobility, decrea sed physical functioning in addition to multiple comorbid conditions, which do include gout. She has a cough that is improved. She has renal insufficiency. She is somewhat mildly dehydrated and her L asix has been decreased on half. She will encourage some oral hydration, gabapentin for neuropathic pain. Continue Synthroid for hypothyroidism. She has Bystolic 20 mg twice daily for heart rate and blood pressure control. She has statin on board, potassium replacement, prednisone, and Diovan. In terms of comorbidities impacting rehabilitation, the kidney function shows a slight decline due to de hydration and at prerenal state. She will have the Lasix again cut back and hydration increased ike le bit. She does have 1500 cc day fluid restriction and she will go up to about 1750 today to increa se kidney function and to reduce the risk of prerenal injury. LB/MODL Voice ID: [id number] Report ID: [id number]
--- NOTE | 2024-10-25 13:29 | P.RH.PN ---
Estimated Length of Stay: 12 Expected Discharge Date: 11/01/24 Discharge Disposition Plan: Home Family Support: Yes Senior Care Goal: Mobility, Transfers, Self Care Vital Signs: Last Vital Signs Temp 97.3 F 10/25/24 07:40 Pulse 59 10/25/24 12:51 Resp 18 10/25/24 07:40 BP 118/58 L 10/25/24 12:51 Pulse Ox 97 10/25/24 07:40 Laboratory: Laboratory Last Values WBC 7.70 thou/uL (4.3-10.9) 10/24/24 05:03 RBC 3.78 M/uL (3.86-4.86) L 10/24/24 05:03 Hgb 11.4 g/dL (12.0-15.0) L 10/24/24 05:03 Hct 33.4 % (36.0-45.0) L 10/24/24 05:03 MCV 88.4 fL (80-100) 10/24/24 05:03 MCH 30.1 pg (27.0-35.0) 10/24/24 05:03 MCHC 34.0 g/dL (32.0-36.0) 10/24/24 05:03 RDW 15.5 % (12.1-15.2) H 10/24/24 05:03 Plt Count 265 thou/uL (152-406) 10/24/24 05:03 MPV 9.1 fL (7.6-11.3) 10/24/24 05:03 Neutrophils % 63.1 % (41.7-73.7) 10/24/24 05:03 Lymphocytes % 25.7 % (15.3-44.8) 10/24/24 05:03 Monocytes % 10.4 % (3.3-12.3) 10/24/24 05:03 Eosinophils % 0.3 % (0-4.4) 10/24/24 05:03 Basophils % 0.5 % (0-1.3) 10/24/24 05:03 Absolute Neutrophils 4.8 K/uL (1.8-8.0) 10/24/24 05:03 Absolute Lymphocytes 2.0 K/uL (0.7-4.9) 10/24/24 05:03 Absolute Monocytes 0.8 K/uL (0.1-1.3) 10/24/24 05:03 Absolute Eosinophils 0.0 K/uL (0-0.5) 10/24/24 05:03 Absolute Basophils 0.0 K/uL (0-0.5) 10/24/24 05:03 Sodium 141 mEq/L (136-145) 10/24/24 05:03 Potassium 3.5 mEq/L (3.5-5.1) 10/24/24 05:03 Chloride 102 mEq/L (98-107) 10/24/24 05:03 Carbon Dioxide 35 mEq/L (21-32) H 10/24/24 05:03 Anion Gap 7.5 mEq/L (5.0-15.0) 10/24/24 05:03 BUN 61 mg/dL (7-18) H 10/24/24 05:03 Creatinine 1.29 mg/dL (0.55-1.02) H 10/24/24 05:03 Est GFR (CKD-EPI) 41 ml/min (=/>90) L 10/24/24 05:03 Glucose 97 mg/dL (74-106) 10/24/24 05:03 Calcium 9.2 mg/dL (8.5-10.1) 10/24/24 05:03 Magnesium 2.5 mg/dL (1.6-2.4) H 10/24/24 05:03 Albumin 2.4 g/dL (3.4-5.0) L 10/24/24 05:03 Prealbumin 28.6 mg/dL (20-40) 10/24/24 05:03 Urine Color Light-yellow (Yellow) 10/18/24 21:34 Urine Clarity Clear (Clear) 10/18/24 21:34 Urine pH 6.5 (5.0-7.0) 10/18/24 21:34 Ur Specific [place] 1.011 (1.005-1.030) 10/18/24 21:34 Glucose (UA)(Auto) Negative (Negative) 10/18/24 21:34 Urine Ketones Negative (Negative) 10/18/24 21:34 Urine Blood Negative (Negative) 10/18/24 21:34 Urine Nitrite Negative (Negative) 10/18/24 21: Urine Bilirubin Negative (Negative) 10/18/24 21:34 Urine Urobilinogen Normal (Normal) 10/18/24 21:34 Ur Leukocyte Esterase Negative [place]/uL (Negative) 10/18/24 21:34 Urine Total Protein Negative (Negative) 10/18/24 21:34 Weight: 195 lb Wound Present: No Closed Surgical Incision Present: No Negative Pressure Wound Therapy Present: No Physician Update: Labs reviewed and she has mild prerenal dehydration with gentle hydration due to CHF exacerbation. She scored 16 on SLUMS, poor short term and working memory. Developing memory strategies. Met 09/22 STG. Met 09/22 and 10/24 LTG with PT. SBA for bed mobility, stand and pivot transfers. RW x2 250', 15 steps with CGA. Met all goals with OT and ADLs including cooking. Summary: Patient's care plan and terminal worker goals have been reviewed and revised as necessary. Please see the Rehabilitation Signature page for all necessary signatures.
[2024-10-26 04:51] VITALS: BMI 38.2
[2024-10-28] MEDS: ONDANSETRON 4 MG (ODT) TAB PO PRN ×2 (04:25→09:02)
[2024-10-28] MEDS: PANTOPRAZOLE 40MG TABLET PO SCH (07:17)
[2024-10-28 08:01] LABS: Absolute Basophils 0.1 K/uL (0-0.5); Absolute Eosinophils 0.1 K/uL (0-0.5); Absolute Lymphocytes (CBC) 0.3 K/uL (0.7-4.9); Absolute Monocytes 1.3 K/uL (0.1-1.3); Absolute Neutrophil 15.4 K/uL (1.8-8.0); Basophils % 0.8 % (0-1.3); Eosinophils % 0.4 % (0-4.4); Hemoglobin 13.2 g/dL (12.0-15.0); MCHC 32.9 g/dL (32.0-36.0); MCV 87.9 fL (80-100); MPV 9.3 fL (7.6-11.3); Monocytes % 7.7 % (3.3-12.3); Neutrophils % 89.1 % (41.7-73.7); Nucleated Red Blood Cells % 0.1 % (0-0); Platelets 301 thou/uL (152-406); RBC Red Blood Cell Count 4.55 M/uL (3.86-4.86); Red Cell Distribution Width 16.1 % (12.1-15.2)
[2024-10-28 08:11] LABS: Anion Gap 8.8 mEq/L (5.0-15.0); Magnesium 2.8 mg/dL (1.6-2.4); Potassium 3.8 mEq/L (3.5-5.1)
[2024-10-28] MEDS: LOPERAMIDE HCL 2 MG CAPSULE PO PRN (09:02)
[2024-10-28 09:18] LABS: Blood Morphology Comment NOT SEEN (NOT SEEN); Differential Total Cells Count 100; Lymphocytes 4 % (15-42); Monocytes 6 % (0-10); Platelet Estimate ADEQ; Platelets Clumped FEW; Segmented Neutrophils 90 % (40-80)
[2024-10-28] MEDS: NA CHLORIDE 0.9% 1,000 ML IV SCH (09:51)
[2024-10-28 10:41] LABS: Urine Bilirubin NEGATIVE (Negative); Urine Blood Negative (Negative); Urine Clarity Clear (Clear); Urine Color Light-Yellow (Yellow); Urine Glucose 2+ (Negative); Urine Ketones NEGATIVE (Negative); Urine Microscopic Reflex YN NO UMIC; Urine Nitrite NEGATIVE (Negative); Urine Protein NEGATIVE (Negative); Urine Urobilinogen Normal (Normal); Urine pH 5.5 (5.0-7.0)
--- NOTE | 2024-10-28 13:16 | RAD REPORT ---
Procedure: Chest Single View HISTORY: Leukocytosis COMPARISON: September 2024 FINDINGS: Left base is hazy without significant change which could be secondary to small pleural effusion, pleu ral thickening or atelectasis. Right lung appears clear of acute infiltrate. Heart mildly enlarged. Pacemaker leads in place.
[2024-10-29 05:49] LABS: Absolute Lymphocytes (CBC) 0.6 K/uL (0.7-4.9); Absolute Monocytes 0.5 K/uL (0.1-1.3); Absolute Neutrophil 6.8 K/uL (1.8-8.0); Basophils % 0.1 % (0-1.3); Hematocrit 33.7 % (36.0-45.0); Hemoglobin 11.2 g/dL (12.0-15.0); Lymphocytes % 7.4 % (15.3-44.8); MCH 29.7 pg (27.0-35.0); MCHC 33.4 g/dL (32.0-36.0); MCV 88.9 fL (80-100); MPV 9.9 fL (7.6-11.3); Monocytes % 6.1 % (3.3-12.3); Neutrophils % 86.4 % (41.7-73.7); Nucleated Red Blood Cells % 0.2 % (0-0); Platelets 216 thou/uL (152-406); RBC Red Blood Cell Count 3.79 M/uL (3.86-4.86); Red Cell Distribution Width 15.9 % (12.1-15.2)
[2024-10-29 06:10] LABS: Anion Gap 9.2 mEq/L (5.0-15.0); Magnesium 2.5 mg/dL (1.6-2.4); Potassium 4.2 mEq/L (3.5-5.1)
[2024-10-29 06:38] VITALS: TEMP 97.9
[2024-10-29 10:47] VITALS: BP 121/58
== END 2024-10-29 11:50 | disposition home health service (06) | DRG 291 ==
LOC: 5TH 10:55 → UNDODISIN 10-25 03:30
PROVIDERS: ADMIT Psychiatry & Neurology Neurology with Special Qualifications in Child Neurology; ATTEND Psychiatry & Neurology Neurology with Special Qualifications in Child Neurology
DX: I11.0 Hypertensive heart disease with heart failure (principal); I50.31 Acute diastolic (congestive) heart failure; E46 Unspecified protein-calorie malnutrition; E27.40 Unspecified adrenocortical insufficiency; R53.1 Weakness; I48.91 Unspecified atrial fibrillation; E86.0 Dehydration; R41.3 Other amnesia; M06.9 Rheumatoid arthritis, unspecified; E78.5 Hyperlipidemia, unspecified; M10.9 Gout, unspecified; E03.9 Hypothyroidism, unspecified; G62.9 Polyneuropathy, unspecified; R05.9 Cough, unspecified; N28.9 Disorder of kidney and ureter, unspecified; B36.9 Superficial mycosis, unspecified; Z68.38 Body mass index [BMI] 38.0-38.9, adult
CPT/HCPCS: 36415; 71045; 80048; 81003; 82040; 83615; 83735; 84134; 84145; 85025; 92523; 94010; 97110; 97116; 97129; 97163; 97165; 97530; 97542; J2003; J7030; J7512; Q0162